=== PATIENT | female | born 1955 | race Caucasian/White ===

== ENCOUNTER 2017-12-26 16:14 | Inpatient (IN) | payer OTHER, MEDICAID, SELFPAY ==
[2017-12-26] VITALS (12 sets, daily range): BP systolic 102–155; BP diastolic 65–91; PULSE 96–117; RESP 17–34; TEMP 36.9–37.7; O2SAT 91–99; BMI 29.7; BMI 29.2
--- NOTE | 2017-12-26 16:15 | EKG12_ITS ---
Test Reason : Blood Pressure : / mmHG Vent. Rate : 118 BPM Atrial Rate : 118 BPM P-R Int : 126 ms QRS Dur : 118 ms QT Int : 418 ms P-R-T Axes : 079 047 082 degrees QTc Int : [address] & T wave abnormality, consider anterior ischemia Prolonged QT Abnormal ECG Possible old inferior post NV Confirmed by TAZ ROBLEDO ([id number]), editor in chief newspaper LILIANE QUINTERO ([id number]) on 12/30/2017 1:38:35 PM Referred By: ANGEL/TOBY Confirmed By:TAZ ROBLEDO
--- NOTE | 2017-12-26 16:43 | ED.VISSUMM ---
- ER Visit Summary Date of Service: 12/26/17 Chief Complaint: Nausea, vomiting and diarrhea History of Present Illness: The patient is a 62 F. day patient had nausea, vomiting diarrhea. Was feeling somewhat better yesterday and then just was her insulin for more than a month. Denies any severe headache. Family states that she has had trouble even walking around how she is so weak. States she has been urinating a lot but no dysuria hematuria. Subjectively she has had fever. Physical Examination: Older female no acute distress. Initial blood pressure 102/69. Pulse is 91% on room air no signs of hypoxia. H EENT exam dry mucous membranes. No facial droop. Normal speech. Neck nontender no lymphadenopathy. Lungs clear to auscultation bilaterally. Heart tachycardic rate about 110 no murmur. Abdomen soft, nontender, nondistended normal bowel sounds no peritoneal signs. She is moving all 4 extremities. Neurovascular intact. No motor weakness or loss of sensation. 5 out of 5 allergist strength. Dorsi plantar flexion intact. Back exam nontender. Skin no rash. Neurologically she is awake she is alert and questions she has no focal motor or sensory deficits. Normal speech. No facial droop. Test Results: CBC shows white count 12.7. H&H 12 and 34. No bands. Electrolytes show sodium 128. Potassium 3.4. CO2 of 18 anion gap of 15 blood sugar 511 BUN 24 creatinine 1.2. Troponin normal. Ketones serum are small. There are also ketones positive in the urine. Chest x-ray showed atelectasis in the bases. EKG shows sinus tachycardia 118. Unchanged from 1 from [address] depression in V2 through V6 was seen on the prior EKG. Emergency Department Course and Treatment: Patient will be treated with IV fluids. Subcu insulin Treatment Plan: Repeat exam patient doing better after IV fluids. I did do a blood gas which showed a pH 7.37 PCO2 is 60 and a PCO2 of 28. I think she is hyperglycemic and dehydrated but not currently in DKA. She will be treated with IV fluids and subcu insulin. I have the hospitalist on page for admission to the PCU. Due to her weakness she is unable to ambulate and she will need to stay. Disposition: Admission Impression: Acute nausea, vomiting and diarrhea. Hyperglycemia history of insulin-dependent diabetes Dehydration Generalized weakness and unable to ambulate This note was generated with [employer] dictation software. It may contain incorrect words, spelling, and punctuation that were not noted in review of the chart prior to signing ED Disposition - Plan for ED Patient: Chief Complaint: Diarrhea Referrals: Khoi Ramos MD [STAFF PHYSICIAN] -
--- NOTE | 2017-12-26 16:45 | RAD_ITS ---
STUDY: X-RAY CHEST REASON FOR EXAM: Female, 62 years old. Fever diarrhea TECHNIQUE: Single frontal view of the chest. COMPARISON: April 03, 2011 FINDINGS: Chronic appearing increased interstitial lung markings. There are multiple median sternotomy wires. There is no demonstrated pleural abnormality. There is bilateral basilar infiltrate / atelectasis. Enlarged heart size. Normal mediastinum and ventura. Normal visualized pulmonary arteries. There is atherosclerotic calcification of the aortic arch with tortuosity. There are diffuse degenerative changes of the visualized thoracic spine. There is degenerative osteoarthritis of the bilateral shoulders. There is no demonstrated abnormality of the visualized soft tissue structures of the upper abdomen. RAD/Chest 1 View (Portable) IMPRESSION: There is bilateral basilar infiltrate / atelectasis. Electronically Signed: Diaz Pérez MD at 17:07 EDT , Service support ,
--- NOTE | 2017-12-26 16:47 | ED.DCSUM_ITS ---
- ER Visit Summary Date of Service: 12/26/17 Chief Complaint: Nausea, vomiting and diarrhea History of Present Illness: The patient is a 62 F. day patient had nausea , vomiting diarrhea. Was feeling somewhat better yesterday and then just was her insulin for more than a month. Denies any severe headache. Family states that she has had trouble even walking around how she is so weak. States she has been urinating a lot but no dysuria hematuria. Subjectively she has had fever. Physical Examination: Older female no acute distress. Initial blood pressure 102/69. Pulse is 91% on room air no signs of hypoxia. H EENT exam dry mucous membranes. No facial droop. Normal speech. Neck nontender no lymphadenopathy. Lungs clear to auscultation bilaterally. Heart tachycardic rate about 110 no murmur. Abdomen soft, nontender, nondistended normal bowel sounds no peritoneal signs. She is moving all 4 extremities. Neurovascular intact. No motor weakness or loss of sensation. 5 out of 5 counter former strength. Dorsi plantar flexion intact. Back exam nontender. Skin no rash. Neurologically she is awake she is alert and questions she has no focal motor or sensory deficits. Normal speech. No facial droop. Test Results: CBC shows white count 12.7. H&H 12 and 34. No bands. Electrolytes show sodium 128. Potassium 3.4. CO2 of 18 anion gap of 15 blood sugar 511 BUN 24 creatinine 1.2. Troponin normal. Ketones serum are small. There are also ketones positive in the urine. Chest x-ray showed atelectasis in the bases. EKG shows sinus tachycardia 118. Unchanged from 1 from 2003 she did [address] depression in V2 through V6 was seen on the prior EKG. Emergency Department Course and Treatment: Patient will be treated with IV fluids. Subcu insulin Treatment Plan: Repeat exam patient doing better after IV fluids. I did do a blood gas which showed a pH 7.37 PCO2 is 60 and a PCO2 of 28. I think she is hyperglycemic and dehydrated but not currently in DKA. She will be treated with IV fluids and subcu insulin. I have the hospitalist on page for admission to the PCU. Due to her weakness she is unable to ambulate and she will need to stay. Disposition: Admission Impression: Acute nausea, vomiting and diarrhea. Hyperglycemia history of insulin-dependent diabetes Dehydration Generalized weakness and unable to ambulate This note was generated with [employer] dictation software. It may contain incorrect words, spelling, and punctuation that were not noted in review of the chart prior to signing ED Disposition - Plan for ED Patient: Chief Complaint: Diarrhea Referrals: Khoi Ramos MD [STAFF PHYSICIAN] -
[2017-12-26] MEDS: 0.9% Normal Saline 1,000 ML 1000 ML IV (17:00)
[2017-12-26 17:03] LABS: Basophil# 0.01 X10^3/uL; Basophil% 0.1 % (0-1); RBC Distribution Width CV 13.9 % (11.6-14.6)
[2017-12-26 17:10] LABS: Differential Indicated SCAN CRITERIA MET; Hematocrit 34.8 % (37-47); Hemoglobin 12.4 g/dl (12.0-15.0); Mean Corp Hgb Conc 35.6 g/gl (32-36); Mean Corpuscular Hgb 31.1 pg (27.0-32.0); Mean Corpuscular Volume 87.2 fL (81-99); Mean Platelet Vol. 11.7 fl (6.2-12.0); Neutrophil % 88.3 % (47-70); POSITIVE COUNT NO; POSITIVE DIFFERENTIAL YES; POSITIVE MORPHOLOGY NO; Platelet Count 131 K/mm3 (150-450); Red Blood Count 3.99 M/mm3 (4.2-5.4); White Blood Count 12.7 K/mm3 (4.4-11.0)
[2017-12-26 17:11] LABS: Absolute Neutrophil Count 11.2 X10^3/uL (2.0-7.7); Eosinophil# 0.01 X10^3/uL; Eosinophils% 0.1 % (0-5); Lymphocyte % 4.7 % (19-41); Monocyte# 0.85 X10^3/uL; Monocyte% 6.7 % (0-10); Neutrophil # 11.24 X10^3/uL (2.7-7.7)
--- NOTE | 2017-12-26 17:16 | ED.RN ---
LAB RESULTED GLUCOSE 511, PHYSICIAN NOTIFIED
[2017-12-26 17:17] LABS: Anion Gap 15 (5-15); BUN 24 mg/dL (7-18); BUN/Creat Ratio 19.5 RATIO (10-20); Chloride 95 mmol/L (98-107); Creatinine, Serum 1.23 mg/dL (0.55-1.02); EST Glomerular Filtration Rate 47 mL/min (>60); Est Glom Filt Rate - Afr Amer 57 mL/min (>60); Estimated Creatinine Clearance 47.23 ml/min; Glucose 511 mg/dL (74-106); Potassium 3.4 mmol/L (3.5-5.1); Sodium Level 128 mmol/L (136-145)
[2017-12-26 17:24] LABS: Platelet Estimate SLT DEC (ADEQ); Red Cell Morphology NORM C+C NORMAL (NORM C&C)
[2017-12-26 18:13] LABS: Mucous, Urine 0 SEEN /hpf (<or=2+)
[2017-12-26 18:15] LABS: Color, Urine Yellow (Yellow); Glucose, Dipstick 1000 mg/dl (Normal); Ketone-Dipstick 50 mg/dl (Negative); Leukocyte Esterase-Dipstick Negative /ul (Negative); Nitrite-Dipstick Negative (Negative); Occult Blood-Urine 250 /ul (Negative); Protein-Dipstick 100 mg/dl (Negative); Urine Bilirubin Dipstick Negative (Negative); Urine Clarity Cloudy (Clear); Urine Urobilinogen Normal (Normal)
[2017-12-26 18:27] LABS: Amorphous Sediment 1+; Bacteria 2+ /hpf (None Seen); Red Blood Cells-Urine 0-5 SEEN /hpf (0-5); Squamous Epithelial Cells - UA 0-5 SEEN /hpf (5-10); White Blood Cells 5-10 SEEN /hpf (0-5)
[2017-12-26] MEDS: 0.9% Normal Saline 1,000 ML 999 ML IV (18:50)
[2017-12-26 19:15] LABS: Allen Test POS; Base Excess -9 mmol/L (-2 to +2); Bicarbonate 16.3 mmol/L (22-26); Blood Gas Specimen Type ART; O2 Delivery Device Room Air; PO2 60 mmHG (75-100); SITE L Radial; SO2 90 % (95-99); Time Given 1850; Total Carbon Dioxide 17 mmol/L; pCO2 28.3 mmHg (35-45); pH 7.37 (7.35-7.45)
[2017-12-26] MEDS: Famotidine 20 MG Tablet 40 MG PO (20:15)
[2017-12-26 20:26] LABS: Bedside Glucose 415 mg/dL (70-110)
--- NOTE | 2017-12-26 20:34 | PCM.HP.STD ---
Problem List (1) DKA (diabetic ketoacidoses) Status: Acute (2) HTN (hypertension) Status: Chronic (3) HLD (hyperlipidemia) Status: Chronic (4) Atrial flutter Status: Chronic (5) Atherosclerotic heart disease of [place] coronary artery without angina pectoris Status: Chronic Comment: PTCA and BMS to the [facility] 04/06/2011; [facility] 04/03/2011 (6) Ventricular septal defect Status: Chronic (7) Paroxysmal atrial fibrillation Status: Chronic (8) Hypertension Status: Chronic (9) Hyperlipidemia Status: Chronic (10) Coronary artery disease Status: Chronic Comment: Status post stent (11) History of ischemic multifocal multiple vascular territories stroke Status: Chronic Comment: With no residual deficit History of Present Illness Date of Admission: 12/26/17 Chief Complaint: DKA The patient is a 62 year old female w / h/o PAF, HTN, DMII, and lipidemia admitted for DKA. She has not been taking her insulin because she is not able to afford the meds. She has been feeling ill since Friday. She has progressive nausea for the past few days. Her nausea is constant and she is unable to tolerate PO since yesterday. On Friday, she just drank a copious amount of soda but she was still thirsty. She has progressive weakness as well. She has diarrhea. Diarrhea is nonbloody. She also complained of lower abdominal pain. Pain is dull aching and intermittent. Pain started a day ago. No radiation of pain. Past Medical History Past Medical History (Chronic Problems): Chronic Problems (Last Reviewed 06/11/17 @ 11:16 by Yee Quezada) H/O percutaneous transluminal coronary angioplasty (Chronic) PTCA and BMS to the X 04/06/2011 HTN (hypertension) (Chronic) HLD (hyperlipidemia) (Chronic) Atrial flutter (Chronic) Atherosclerotic heart disease of [place] coronary artery without angina pectoris (Chronic) PTCA and BMS to the [facility] 04/06/2011; [facility] 04/03/2011 Ventricular septal defect (Chronic) Paroxysmal atrial fibrillation (Chronic) Hypertension (Chronic) Hyperlipidemia (Chronic) Coronary artery disease (Chronic) Status post stent History of ischemic multifocal multiple vascular territories stroke (Chronic) With no residual deficit Status post abdominal surgery, follow-up exam (Chronic) Hypokalemia (Chronic) Medical History: Medical History (Last Reviewed 06/11/17 @ 11:16 by Yee Quezada) HTN (hypertension) (Chronic) I10 HLD (hyperlipidemia) (Chronic) E78.5 Atrial flutter (Chronic) I48.92 Atherosclerotic heart disease of [place] coronary artery without angina pectoris (Chronic) I25.10 PTCA and BMS to the [facility] 04/06/2011; [facility] 04/03/2011 Ventricular septal defect (Chronic) Q21.0 Paroxysmal atrial fibrillation (Chronic) I48.0 History of echocardiogram Z92.89 EF 53% 10/04/2011 Allergies No Known Allergies Allergy (Verified 12/26/17 16:15) Home Medications: Ambulatory Orders Medication Instructions Recorded Calcium/Mag/Zinc 1 tab PO DAILY 08/13/13 Cyanocobalamin [Vitamin B12] 250 mcg PO DAILY 08/13/13 Echinacea 380 mg PO DAILY PRN 08/13/13 Glucosamine Sulfate Dipot Chlr 500 mg PO DAILY 08/13/13 [Glucosamine Relief] Multivitamins,Therapeutic 1 tablet PO DAILY 08/13/13 [Multivitamin] Elmer-3/Dha/Epa/Fish Oil [Fish Oil 500 mg PO BID 08/13/13 Dr 500 mg Softgel] Potassium Gluconate 550 mg PO PRN PRN 08/13/13 glipiZIDE XL [Glucotrol Xl] 2 tab PO BID 08/13/13 traZODone [Desyrel] 100 mg PO QHS 08/13/13 lorazepam 0.5 mg tablet 0.5 mg PO TID PRN PRN tab 06/11/17 apixaban 5 mg tablet 5 mg PO BID #180 tab 12/15/17 Aspirin [Aspirin EC] 81 mg PO DAILY 12/26/17 Cyclobenzaprine [Flexeril] 10 mg PO TID 12/26/17 Gabapentin [Neurontin] 100 mg PO TID 12/26/17 Ibuprofen [Ibu] 800 mg PO TIDCM PRN 12/26/17 Metoprolol Tartrate [Lopressor 50 mg PO BID 12/26/17 (beta wally)] Sertraline HCl [Zoloft] 200 mg PO BID 12/26/17 Sitagliptin Phosphate [Januvia] 100 mg PO DAILY 12/26/17 Surgical History: Surgical History (Last Updated 06/11/17 @ 11:16 by Yee Quezada) H/O percutaneous transluminal coronary angioplasty (Chronic) Z98.61 PTCA and BMS to the [facility] 04/06/2011 History of cholecystectomy Z98.890, Z90.49 History of hysterectomy Z98.890, Z90.710 History of left heart catheterization (LHC) Z98.890 1994; 04/03/2011 Surgical History: cholecystectomy, - - History of cardiac surgery for congenital heart disease. Psychiatric History: No pertinent psych hx COMMISSION CLERK History: No pertinent COMMISSION CLERK history Smoking Status: Current every day smoker Drugs: None - *Family History Maternal Family History: Family History (Last Updated 06/11/17 @ 11:10 by Yee Quezada) Mother Ovarian cancer Father Hypertension COPD (chronic obstructive pulmonary disease) Sister Multiple sclerosis Sister Brain tumor Brother A-fib History Items: No pertinent history Review of Systems Constitutional: Denies: Chills, Fever, Weight Change HEENT: Denies: Head Aches, Sinus Congestion, Sinus Drainage Cardiovascular: Denies: Chest Pain, Palpitations Respiratory: Denies: Cough, Shortness of breath at rest, Sputum production Gastrointestinal: Reports: Abdominal Pain, Nausea, Vomiting Genitourinary: Denies: Dysuria Musculoskeletal: Denies: Joint Pain, Joint Tenderness Skin: Denies: Rash, Wounds Neurological: Denies: Numbness, Tingling, Focal weakness Psychiatric: Denies: Anxiety, Depression, Homicidal Ideations, Suicidal Ideations Hematologic/ Lymphatic: Denies: Easy Bruising, Easy Bleeding VTE Information - Inpt Only VTE Present on Admission: No VTE Mechan Device Prophylaxis: SCD's VTE Pharm Prophylaxis ordered?: Yes Patient Problems: Active and Suspected Problems (Last Reviewed 06/11/17 @ 11:16 by Yee Quezada) DKA (diabetic ketoacidoses) (Acute) - Physical Exam General: Alert, Oriented x3, Cooperative HEENT: Atraumatic, PERRLA, EOMI, Normocephalic Neck: Supple, No JVD, Negative Carotid Bruits Lungs: Clear to auscultation, Normal air movement Cardiovascular: Regular rate, No murmurs Abdomen: Bowel Sounds Present, Soft, Non Tender Extremities: No edema, Capillary Refill Less than 3 Seconds Skin: No rashes, No breakdown Musculoskeletal: No Tenderness to Palpation of Joints or Extremities Neurological: Cranial nerves II-XII grossly intact Psych/Mental Status: Normal Affect, Appropriate Vital Signs Temp Pulse Resp BP Pulse Ox 100 F H 103 H 22 H 133/75 H 94 12/26/17 16:15 12/26/17 20:00 12/26/17 20:00 12/26/17 20:00 12/26/17 20:00 POC Glucose 12/26/17 20:19 POC Glucose 415 H Assessment/Plan All Active Problems (Last Reviewed 06/11/17 @ 11:16 by Yee Quezada) DKA (diabetic ketoacidoses) (Acute) 62 year old female w / h/o PAF, HTN, DMII, and lipidemia admitted for DKA. 1) DKA: Gap 15, positive ketone, and hyperglycemia. DKA protocol started. Insulin and aggressive hydration. Gap closed. Started levemir 20 units Qday. 2) Hypovolemia hyponatremia: Na 128 Hydration. Monitor. 3) Chronic issues: PAF, HTN, DMII, and lipidemia Resume home meds.
[2017-12-26 22:45] LABS: Bedside Glucose 321 mg/dL (70-110)
[2017-12-26] MEDS: APIXABAN 5 MG TABLET PO (23:05)
[2017-12-26] MEDS: Metoprolol Tartrate 50 MG Tablet PO (23:05)
[2017-12-26] MEDS: traZODone 100 MG Tablet PO (23:05)
[2017-12-26] MEDS: Sertraline 100 MG Tablet 200 MG PO (23:06)
[2017-12-26] MEDS: 0.9% Normal Saline 1,000 ML 325 ML IV (23:07)
[2017-12-26 23:21] LABS: AST(SGOT) 33 U/L (15-37); Alanine Aminotransfer ALT/SGPT 38 U/L (13-56); Albumin, Serum 2.3 g/dL (3.2-5.0); Alkaline Phosphatase 78 U/L (45-117); Anion Gap 12 (5-15); BUN 21 mg/dL (7-18); BUN/Creat Ratio 21.5 RATIO (10-20); Bilirubin, Direct 0.12 mg/dL (0.00-0.30); Calcium,Total 8.4 mg/dL (8.5-10.1); Chloride 99 mmol/L (98-107); Creatinine, Serum 0.98 mg/dL (0.55-1.02); EST Glomerular Filtration Rate 61 mL/min (>60); Est Glom Filt Rate - Afr Amer 74 mL/min (>60); Estimated Creatinine Clearance 59.27 ml/min; Globulin 4.7 g/dL (2.2-4.2); Glucose 312 mg/dL (74-106); Magnesium 1.7 mg/dL (1.6-2.6); Sodium Level 132 mmol/L (136-145)
[2017-12-26 23:30] LABS: Osmolality, Serum 292 mOsm/KG (280-301)
[2017-12-27] VITALS (17 sets, daily range): BP systolic 116–145; BP diastolic 56–75; PULSE 84–99; RESP 16–37; TEMP 37–37.4; O2SAT 92–100
[2017-12-27 00:01] LABS: Hemoglobin A1c 12.5 % (4.2-6.3)
[2017-12-27 00:27] LABS: M R Staph aureus DNA By PCR Negative (Negative); Probe Check PASS; Specimen Processing Control PASS
[2017-12-27] MEDS: Insulin Lispro 100 UNIT/ML INSULN.PEN SC ×7 (01:29→21:06)
[2017-12-27] MEDS: 0.9% NaCl Peripheral Flush Adult/Peds IV (01:30)
[2017-12-27 01:36] LABS: Bedside Glucose 306 mg/dL (70-110)
[2017-12-27] MEDS: 0.9% Normal Saline 1,000 ML 150 ML IV ×2 (05:08→19:26)
[2017-12-27 05:16] LABS: Bedside Glucose 287 mg/dL (70-110)
[2017-12-27 06:04] LABS: Anion Gap 12 (5-15); BUN 15 mg/dL (7-18); BUN/Creat Ratio 38.1 RATIO (10-20); Calcium,Total 5.1 mg/dL (8.5-10.1); Chloride 120 mmol/L (98-107); Creatinine, Serum 0.39 mg/dL (0.55-1.02); EST Glomerular Filtration Rate 174 mL/min (>60); Est Glom Filt Rate - Afr Amer 211 mL/min (>60); Estimated Creatinine Clearance 148.94 ml/min; Glucose 184 mg/dL (74-106); Potassium 2.2 mmol/L (3.5-5.1); Sodium Level 145 mmol/L (136-145)
[2017-12-27 06:41] LABS: Magnesium 1.1 mg/dL (1.6-2.6)
[2017-12-27 08:21] LABS: Bedside Glucose 229 mg/dL (70-110)
[2017-12-27] MEDS: APIXABAN 5 MG TABLET PO ×2 (09:38→21:08)
[2017-12-27] MEDS: Sertraline 100 MG Tablet 200 MG PO ×2 (09:38→21:08)
[2017-12-27] MEDS: Metoprolol Tartrate 50 MG Tablet PO ×2 (09:38→21:08)
[2017-12-27] MEDS: Aspirin E.C. 81 MG Tablet PO (09:39)
--- NOTE | 2017-12-27 11:46 | CASEMGMT ---
See [facility]LL[facility] Assessment Link. DC PLAN: undetermined - pt is confused, weak. Daughter is concerned she may not be able to return home safely. ANA COSTELLO discussed options on dc of Home Health or SNF. Also recommended if pt returns home, would benefit from having someone with her for safety in the beginning. -PT/OT ordered, will await evaluations. Simi HERNANDEZ RN ACM
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
--- NOTE | 2017-12-27 12:15 | PN_ITS ---
Patient Problems: Active and Suspected Problems (Last Reviewed 06/11/17 @ 11:16 by Yee Qeuzada) DKA (diabetic ketoacidoses) (Acute) Subjective: Patient is a 62-year-old female with a history of diabetes mellitus, hypertension, paroxysmal A. fib, hyperlipidemia. She was admitted with a complaint of progressive nausea and feeling unwell for 3 days prior to admission. She had also decreased intake and progressive weakness with associated diarrhea and no abdominal pain. She was admitted and found to have DKA with elevated anion gap, elevated blood sugars and positive ketones. She was started on insulin drip. Patient seen and examined. She was quite confused and said she has problems with her memory from when she had an accident. She complained of low abdominal pain and some subjective fevers but denied any chills, any cough or chest pain, any diarrhea vomiting. She admitted to having frequency of urination prior to admission but denied any polydipsia. Vitals/I&O's: Vital Signs Temp Pulse Resp BP Pulse Ox 98.8 F 84 19 H 141/63 H 96 12/27/17 07:38 12/27/17 11:27 12/27/17 07:38 12/27/17 09:38 12/27/17 07:38 Oxygen Flow Rate (L/min) 2 Oxygen Delivery Method Nasal Cannula Weight: 192 lb 0.362 oz Body Mass Index (BMI) 29.2 Intake and Output for Last 24 Hours 12/25/17 12/26/17 12/27/17 23:59 23:59 23:59 Intake Total 2412 / 2412 2528 / 2528 Output Total 250 / 250 500 / 500 Balance 2162 / 2162 2027 General: Alert, Cooperative, No apparent distress, - - Patient confused alert and oriented ?2. HEENT: Atraumatic, PERRLA, EOMI, Normocephalic Oral: Moist Mucosa Neck: Supple, No JVD, Negative Carotid Bruits Lungs: Clear to auscultation, Normal air movement Cardiovascular: Regular rate, Regular Rhythm, Normal S1, Normal S2, No murmurs Abdomen: Bowel Sounds Present, Soft, Non Tender, Non-Distended, No Hepato- splenomegaly, - - minimal suprapubic tenderness Extremities: No clubbing, No cyanosis, No edema, Capillary Refill Less than 3 Seconds Skin: No rashes, No breakdown Musculoskeletal: No Tenderness to Palpation of Joints or Extremities Lymphatic: No Cervical, Supraclavicular, or Inguinal Adenopathy Neurological: Cranial nerves II-XII grossly intact Psych/Mental Status: Normal Affect, Appropriate, Alert and oriented to time, place, person, mood and affect Laboratory Results 12/26/17 20:19: POC Glucose 415 H 12/26/17 22:34: POC Glucose 321 H 12/26/17 22:40: Sodium 132 L, Potassium 3.0 L, Chloride 99, Carbon Dioxide 21.0 , Anion Gap 12, BUN 21 H, Creatinine 0.98, Estim Creat Clear Calc 59.27, Est GFR (MDRD) Af Amer 74, Est GFR (MDRD) Non-Af 61, BUN/Creatinine Ratio 21.5 H, Glucose 312 H, Calcium 8.4 L, Magnesium 1.7, Total Bilirubin 0.50, Direct Bilirubin 0.12, AST 33, ALT 38, Alkaline Phosphatase 78, Troponin I 0.032, Total Protein 7.0, Albumin 2.3 L, Globulin 4.7 H 12/26/17 22:40: Serum Osmolality 292 12/26/17 22:40: MRSA (PCR) Negative 12/27/17 01:21: POC Glucose 306 H 12/27/17 01:25: Troponin I 0.039 12/27/17 05:02: POC Glucose 287 H 12/27/17 05:05: Troponin I 0.039 12/27/17 05:05: Sodium 145, Potassium 2.2 L*, Chloride 120 H, Carbon Dioxide 13.0 L, Anion Gap 12, BUN 15, Creatinine 0.39 L, Estim Creat Clear Calc 148.94, Est GFR (MDRD) Af Amer 211, Est GFR (MDRD) Non-Af 174, BUN/Creatinine Ratio 38.1 H, Glucose 184 H, Calcium 5.1 L* 12/27/17 05:05: Magnesium 1.1 L 12/27/17 08:13: POC Glucose 229 H Current Medications Apixaban (Eliquis) 5 mg PO BID [facility] Last Admin: 12/27/17 09:38 Dose: 5 mg Aspirin (Ecotrin) 81 mg PO DAILY [facility] Last Admin: 12/27/17 09:39 Dose: 81 mg Cyclobenzaprine HCl (Flexeril) 10 mg PO TID [facility] Last Admin: 12/27/17 05:09 Dose: 10 mg Dextrose (D50w Syringe) 0 gm IV X1 PRN; Protocol PRN Reason: AGITATION Sodium Chloride () 1,000 mls @ 150 mls/hr IV .Q6H40M [facility] Last Admin: 12/27/17 05:08 Dose: 150 mls/hr Potassium Chloride (Kcl 10meq/100ml) 10 meq in 100 mls @ 100 mls/hr IV BOLUS Q1H [facility] Stop: 12/27/17 12:14 Last Admin: 12/27/17 11:48 Dose: 100 mls/hr Insulin Glargine (Lantus (Bkc)) 20 units SC QHS [facility] Last Admin: 12/27/17 00:15 Dose: 20 u Insulin Human Lispro (Humalog Kwikpen (Bkc)) 0 unit SC Q4 LATHA PRN Reason: Protocol Last Admin: 12/27/17 09:39 Dose: 2 u Metoprolol Tartrate (Lopressor (Beta Guzman)) 50 mg PO BID [facility] Last Admin: 12/27/17 09:38 Dose: 50 mg Sertraline HCl (Zoloft) 200 mg PO BID [facility] Last Admin: 12/27/17 09:38 Dose: 200 mg Sodium Chloride () 5 - 30 ml IV UD PRN PRN Reason: SALINE FLUSH Last Admin: 12/27/17 01:30 Dose: 20 ml Trazodone HCl (Desyrel) 100 mg PO QHS [facility] Last Admin: 12/26/17 23:05 Dose: 100 mg Medical Necessity - Tobacco Use Smoking Status: Current every day smoker Assessment/Plan All Active Problems (Last Reviewed 06/11/17 @ 11:16 by Yee Quezada) DKA (diabetic ketoacidoses) (Acute) 1. DKA due to noncompliance * admitted with a complaint of general feeling of unwellness, nausea and vomiting as well as subjective fever. * serum ketones was mildly elevated on admission, with elevated anion gap(~19) and hyperglycemia. Anion gap closed initially with IVF. * initial ABG showed pH of 7.37, with bicarb of 16. and pO 2 of 60 * bicarb this morning down to 13; anion gap is now ~ 17 * K was initially 3.4, then went down to 3; now 2.2. K being replaced; will recheck and monitor * will get stat ABG. * was never put on insulin drip; blood sugars came down to 200s on IVF only * will check blood sugars q4 for now till tomorrow, then transition to [facility]. * will start PO metformin 500mg bid. Patient doesnt know what she takes at home and has not been compliant. * will give Insulin SQ 20IU now, and continue 20IU qam and monitor sugars * 2. Hypomagnesemia and hypocalcemia * Mg is 1.1; will replace and monitor * Ca is 5.1; corrected for albumin is ~ 6.5. WIll replace and monitor * 3. Altered mental status, possibly due to DKA and UTI and medicaiton induced also * will hold trazodone and flexeril. Will start IV ciprofloxacin for UTI * fall precautions * 4. UTI * Complaints of frequency of urine. Does not complain of dysuria or polydipsia. Denies offensive urine. * A showed 2+ bacteria and 5-10 white cells. No leukocyte esterase seen. * We will start IV ciprofloxacin and send urine for culture and adjust antibiotics as needed * 5. Hyponatremia: resolved. 6. Paroxysmal Afib: * currently rate controlled. On eliquis 5mg bid. At risk of further arrhythmia due to electrolyte imbalance. Will replace electrolytes and monitor * Dose of Eliquis is for treatment for thrombotic condition. Will clarify with patient if she has had a history of a thrombotic condition prophylaxis for paroxysmal A. fib and consider reducing the dose to 2.5 mg twice daily. 7. Hyperlipidemia: on statin 8. Hypertension: On metoprolol DVT prophylaxis: on eliquis Code Visit Inpatient E&M: 60090 Subs Hosp L3
[2017-12-27 12:35] LABS: Bedside Glucose 308 mg/dL (70-110)
[2017-12-27] MEDS: Ciprofloxacin 400 MG/200 ML BAG 200 MG IV ×2 (12:57→21:06)
[2017-12-27 13:00] LABS: Allen Test POS; Base Excess -10 mmol/L (-2 to +2); Bicarbonate 15.6 mmol/L (22-26); Blood Gas Specimen Type ART; O2 Delivery Device Nasal Can; PO2 96 mmHG (75-100); SITE R Radial; SO2 97 % (95-99); Time Given 1253; Total Carbon Dioxide 16 mmol/L; pCO2 27.8 mmHg (35-45); pH 7.36 (7.35-7.45)
[2017-12-27 13:15] LABS: Anion Gap 12 (5-15); BUN 21 mg/dL (7-18); BUN/Creat Ratio 24.9 RATIO (10-20); Calcium,Total 8.5 mg/dL (8.5-10.1); Chloride 105 mmol/L (98-107); Creatinine, Serum 0.84 mg/dL (0.55-1.02); EST Glomerular Filtration Rate 72 mL/min (>60); Est Glom Filt Rate - Afr Amer 87 mL/min (>60); Estimated Creatinine Clearance 69.15 ml/min; Glucose 288 mg/dL (74-106); Magnesium 1.7 mg/dL (1.6-2.6); Phosphorus 1.1 mg/dL (2.5-4.9); Sodium Level 135 mmol/L (136-145)
[2017-12-27 16:11] LABS: Bedside Glucose 242 mg/dL (70-110)
--- NOTE | 2017-12-27 16:20 | CT_ITS ---
STUDY: CT BRAIN WITHOUT CONTRAST REASON FOR EXAM: Female, 62 years old. Confusion, history of previous stroke RADIATION DOSAGE (If Supplied By Facility): CTDIvol = ( 44.99 ) mGy, DLP = ( 779.24 ) mGycm TECHNIQUE: Transaxial CT imaging of the brain was performed without administration of intravenous contrast material. Individualized dose optimization techniques were used for this CT. COMPARISON: None. FINDINGS: There are several subcutaneous nodular densities of the occipital region measuring up to 1.7 cm which may represent sebaceous cysts. Normal calvarium. There is a region of encephalomalacia of the left occipital lobe consistent with old infarct. Normal white matter tracts of the cerebral hemispheres. Normal basal ganglia and thalami. Normal brainstem. There is also a region of hypodensity of the lateral left cerebellar hemisphere, also consistent with old infarct. There is no intracranial hemorrhage. There are no findings of an acute ischemic infarction. Normal visualized paranasal sinuses. CT/Brain/Head without Contrast IMPRESSION: Old infarcts of the left occipital lobe and left cerebellar hemisphere. There is no evidence of acute infarct or intracranial hemorrhage. Electronically Signed: Oscar Louis MD at 17:40 EDT , Service support ,
[2017-12-27 18:20] LABS: Thyroid Stim Hormone (TSH) 0.97 uIU/mL (0.358-3.74)
[2017-12-27] MEDS: Na Biphos/Potassium Phosphate PACKET 1 PACKET PO ×2 (18:32→21:09)
[2017-12-27 18:45] LABS: Bedside Glucose 269 mg/dL (70-110)
[2017-12-27 22:05] LABS: Bedside Glucose 230 mg/dL (70-110)
[2017-12-28] VITALS (15 sets, daily range): BP systolic 104–130; BP diastolic 47–75; PULSE 74–125; RESP 15–18; TEMP 36.4–37.2; O2SAT 91–93
[2017-12-28] MEDS: 0.9% Normal Saline 1,000 ML 150 ML IV ×2 (01:48→08:54)
[2017-12-28] MEDS: Insulin Lispro 100 UNIT/ML INSULN.PEN SC ×6 (01:53→22:04)
[2017-12-28 02:01] LABS: Bedside Glucose 209 mg/dL (70-110)
[2017-12-28 06:04] LABS: Absolute Lymphocyte Count 0.89 X10^3/ul (0.83-4.51); Absolute Neutrophil Count 9.1 X10^3/uL (2.0-7.7); Basophil# 0.01 X10^3/uL; Basophil% 0.1 % (0-1); Eosinophil# 0.02 X10^3/uL; Eosinophils% 0.2 % (0-5); Hematocrit 29.9 % (37-47); Hemoglobin 10.5 g/dl (12.0-15.0); Lymphocyte # 0.89 X10^3/ul (4.0); Lymphocyte % 7.9 % (19-41); Mean Corp Hgb Conc 35.1 g/gl (32-36); Mean Corpuscular Hgb 30.8 pg (27.0-32.0); Mean Corpuscular Volume 87.7 fL (81-99); Monocyte# 1.09 X10^3/uL; Monocyte% 9.7 % (0-10); Platelet Count 146 K/mm3 (150-450); RBC Distribution Width CV 13.8 % (11.6-14.6); RBC Distribution Width SD 42.6 fl (35.1-43.9); Red Blood Count 3.41 M/mm3 (4.2-5.4); White Blood Count 11.2 K/mm3 (4.4-11.0)
[2017-12-28 06:05] LABS: POSITIVE COUNT NO; POSITIVE DIFFERENTIAL NO; POSITIVE MORPHOLOGY NO
[2017-12-28 06:20] LABS: Bedside Glucose 194 mg/dL (70-110)
[2017-12-28 07:27] LABS: ALB/GLOB Ratio 0.5 RATIO (0.9-2.4); AST(SGOT) 122 U/L (15-37); Alanine Aminotransfer ALT/SGPT 95 U/L (13-56); Albumin, Serum 1.9 g/dL (3.2-5.0); Alkaline Phosphatase 92 U/L (45-117); Anion Gap 11 (5-15); BUN 17 mg/dL (7-18); Calcium,Total 7.9 mg/dL (8.5-10.1); Chloride 106 mmol/L (98-107); Creatinine, Serum 0.74 mg/dL (0.55-1.02); EST Glomerular Filtration Rate 84 mL/min (>60); Est Glom Filt Rate - Afr Amer 102 mL/min (>60); Globulin 4.2 g/dL (2.2-4.2); Glucose 196 mg/dL (74-106); Protein, Total 6.1 g/dL (6.4-8.2); Sodium Level 137 mmol/L (136-145)
[2017-12-28] MEDS: Na Biphos/Potassium Phosphate PACKET 1 PACKET PO ×4 (08:55→21:55)
[2017-12-28 09:14] LABS: Phosphorus 1.6 mg/dL (2.5-4.9)
[2017-12-28] MEDS: Ciprofloxacin 400 MG/200 ML BAG 200 MG IV ×2 (10:21→21:55)
[2017-12-28] MEDS: Aspirin E.C. 81 MG Tablet PO (10:27)
[2017-12-28] MEDS: Sertraline 100 MG Tablet 200 MG PO ×2 (10:27→21:55)
[2017-12-28] MEDS: APIXABAN 5 MG TABLET PO ×2 (10:28→21:55)
[2017-12-28] MEDS: Metoprolol Tartrate 50 MG Tablet PO ×2 (10:28→21:55)
[2017-12-28 10:51] LABS: Bedside Glucose 237 mg/dL (70-110)
--- NOTE | 2017-12-28 11:53 | PCM.DC ---
- Discharge Diagnoses Current Active Problems: Current Active and Chronic Problems (Last Reviewed 06/11/17 @ 11:16 by Yee Quezada) DKA (diabetic ketoacidoses) (Acute) You will use the following diet at home:: Calorie/Carbohydrate Controlled (specify 1200, 1400, etc) Your food should be the consistency of: Regular Discharge Activity: Return to Normal Activity Call your doctor if you observe: Fever of 101 or Higher, Shortness of breath, Chest pain Instructions: Healthy Meals for Diabetes, Using Injected Insulin, What Is Type 2 Diabetes? Additional Instructions: please dont take the Flexeril and any opiates as they cause confusion. Please follow up with your primary care doctor about when/if to resume them Allergies/Adverse Reactions: Allergies No Known Allergies Allergy (Verified 12/26/17 16:15) Medications to take at Discharge Calcium/Mag/Zinc 1 tab PO DAILY 08/13/13 Cyanocobalamin [Vitamin B12] 250 mcg PO DAILY 08/13/13 Echinacea 380 mg PO DAILY PRN 08/13/13 Glucosamine Sulfate Dipot Chlr [Glucosamine Relief] 500 mg PO DAILY 08/13/13 Multivitamins,Therapeutic [Multivitamin] 1 tablet PO DAILY 08/13/13 [place]-3/Dha/Epa/Fish Oil [Fish Oil Dr 500 mg Softgel] 500 mg PO BID 08/13/13 traZODone [Desyrel] 100 mg PO QHS 08/13/13 lorazepam 0.5 mg tablet 0.5 mg PO TID PRN PRN tab 06/11/17 apixaban 5 mg tablet 5 mg PO BID #180 tab 12/15/17 Aspirin [Aspirin EC] 81 mg PO DAILY 12/26/17 Ibuprofen [Ibu] 800 mg PO TIDCM PRN 12/26/17 Metoprolol Tartrate [Lopressor (beta wally)] 50 mg PO BID 12/26/17 Sertraline HCl [Zoloft] 200 mg PO BID 12/26/17 Ciprofloxacin/Ciprofloxa HCl [Ciprofloxacin ER 500 mg Tablet] 500 mg PO BID #10 tab 12/28/17 Insulin Glargine [Lantus SoloStar Pen] 15 units SC BREAKFAST #30 pen 12/28/17 Metformin HCl [Glucophage] 500 mg PO BIDCM #60 tab 12/28/17 Na Biphos/Potassium Phosphate [Neutra-Phos Packet] 1 packet PO 4X/DAYCM #60 packet 12/28/17 Potassium Chloride 20 meq PO DAILY #30 packet 12/28/17 The following prescriptions were given: Insulin Glargine [Lantus SoloStar Pen] 15 units SC BREAKFAST #30 pen Potassium Chloride 20 meq PO DAILY #30 packet Ciprofloxacin/Ciprofloxa HCl [Ciprofloxacin ER 500 mg Tablet] 500 mg PO BID #10 tab Metformin HCl [Glucophage] 500 mg PO BIDCM #60 tab Na Biphos/Potassium Phosphate [Neutra-Phos Packet] 1 packet PO 4X/DAYCM #60 packet Primary Care Physician: Khoi Ramos MD [STAFF PHYSICIAN] - Please follow up with your Primary Care Physician in: one week Test Results: Test results from this visit will be discussed in further detail at your follow-up appointment, if applicable. Proposed Discharge Date: 12/28/17
--- NOTE | 2017-12-28 11:56 | DCINST_ITS ---
- Discharge Diagnoses Current Active Problems: Current Active and Chronic Problems (Last Reviewed 06/11/17 @ 11:16 by Yee Quezada) DKA (diabetic ketoacidoses) (Acute) You will use the following diet at home:: Calorie/Carbohydrate Controlled ( specify 1200, 1400, etc) Your food should be the consistency of: Regular Discharge Activity: Return to Normal Activity Call your doctor if you observe: Fever of 101 or Higher, Shortness of breath, Chest pain Instructions: Healthy Meals for Diabetes, Using Injected Insulin, What Is Type 2 Diabetes? Additional Instructions: please dont take the Flexeril and any opiates as they cause confusion. Please follow up with your primary care doctor about when/if to resume them Allergies/Adverse Reactions: Allergies No Known Allergies Allergy (Verified 12/26/17 16:15) Medications to take at Discharge Calcium/Mag/Zinc 1 tab PO DAILY 08/13/13 Cyanocobalamin [Vitamin B12] 250 mcg PO DAILY 08/13/13 Echinacea 380 mg PO DAILY PRN 08/13/13 Glucosamine Sulfate Dipot Chlr [Glucosamine Relief] 500 mg PO DAILY 08/13/13 Multivitamins,Therapeutic [Multivitamin] 1 tablet PO DAILY 08/13/13 [place]-3/Dha/Epa/Fish Oil [Fish Oil Dr 500 mg Softgel] 500 mg PO BID 08/13/13 traZODone [Desyrel] 100 mg PO QHS 08/13/13 lorazepam 0.5 mg tablet 0.5 mg PO TID PRN PRN tab 06/11/17 apixaban 5 mg tablet 5 mg PO BID #180 tab 12/15/17 Aspirin [Aspirin EC] 81 mg PO DAILY 12/26/17 Ibuprofen [Ibu] 800 mg PO TIDCM PRN 12/26/17 Metoprolol Tartrate [Lopressor (beta wally)] 50 mg PO BID 12/26/17 Sertraline HCl [Zoloft] 200 mg PO BID 12/26/17 Ciprofloxacin/Ciprofloxa HCl [Ciprofloxacin ER 500 mg Tablet] 500 mg PO BID #10 tab 12/28/17 Insulin Glargine [Lantus SoloStar Pen] 15 units SC BREAKFAST #30 pen 12/28/17 Metformin HCl [Glucophage] 500 mg PO BIDCM #60 tab 12/28/17 Na Biphos/Potassium Phosphate [Neutra-Phos Packet] 1 packet PO 4X/DAYCM #60 packet 12/28/17 Potassium Chloride 20 meq PO DAILY #30 packet 12/28/17 The following prescriptions were given: Insulin Glargine [Lantus SoloStar Pen] 15 units SC BREAKFAST #30 pen Potassium Chloride 20 meq PO DAILY #30 packet Ciprofloxacin/Ciprofloxa HCl [Ciprofloxacin ER 500 mg Tablet] 500 mg PO BID #10 tab Metformin HCl [Glucophage] 500 mg PO BIDCM #60 tab Na Biphos/Potassium Phosphate [Neutra-Phos Packet] 1 packet PO 4X/DAYCM #60 packet Primary Care Physician: Khoi Ramos MD [STAFF PHYSICIAN] - Please follow up with your Primary Care Physician in: one week Test Results: Test results from this visit will be discussed in further detail at your follow- up appointment, if applicable. Proposed Discharge Date: 12/28/17
--- NOTE | 2017-12-28 11:56 | PCM.DC.SUM ---
Discharge Date and Diagnosis - Problem List Patient Problems: Active and Suspected Problems (Last Reviewed 06/11/17 @ 11:16 by Yee Quezada) DKA (diabetic ketoacidoses) (Acute) Date of Admission: 12/26/17 - Primary Discharge Diagnosis Active and Suspected Problems (Last Reviewed 06/11/17 @ 11:16 by Yee Quezada) DKA (diabetic ketoacidoses) (Acute) - Secondary Discharge Diagnosis Chronic Problems (Last Reviewed 06/11/17 @ 11:16 by Yee Quezada) H/O percutaneous transluminal coronary angioplasty (Chronic) PTCA and BMS to the [facility] 04/06/2011 HTN (hypertension) (Chronic) HLD (hyperlipidemia) (Chronic) Atrial flutter (Chronic) Atherosclerotic heart disease of [place] coronary artery without angina pectoris (Chronic) PTCA and BMS to the [facility] 04/06/2011; [facility] 04/03/2011 Ventricular septal defect (Chronic) Paroxysmal atrial fibrillation (Chronic) Hypertension (Chronic) Hyperlipidemia (Chronic) Coronary artery disease (Chronic) Status post stent History of ischemic multifocal multiple vascular territories stroke (Chronic) With no residual deficit Status post abdominal surgery, follow-up exam (Chronic) Hypokalemia (Chronic) Hospital Course and Treatment Summary of Care Provided: The patient is a 62 year old F [] Discharge Activity: Return to Normal Activity Call your doctor if you observe: Fever of 101 or Higher, Shortness of breath, Chest pain Home Medications: Medications to take at Discharge Calcium/Mag/Zinc 1 tab PO DAILY 08/13/13 Cyanocobalamin [Vitamin B12] 250 mcg PO DAILY 08/13/13 Echinacea 380 mg PO DAILY PRN 08/13/13 Glucosamine Sulfate Dipot Chlr [Glucosamine Relief] 500 mg PO DAILY 08/13/13 Multivitamins,Therapeutic [Multivitamin] 1 tablet PO DAILY 08/13/13 [place]-3/Dha/Epa/Fish Oil [Fish Oil Dr 500 mg Softgel] 500 mg PO BID 08/13/13 traZODone [Desyrel] 100 mg PO QHS 08/13/13 lorazepam 0.5 mg tablet 0.5 mg PO TID PRN PRN tab 06/11/17 apixaban 5 mg tablet 5 mg PO BID #180 tab 12/15/17 Aspirin [Aspirin EC] 81 mg PO DAILY 12/26/17 Ibuprofen [Ibu] 800 mg PO TIDCM PRN 12/26/17 Metoprolol Tartrate [Lopressor (beta wally)] 50 mg PO BID 12/26/17 Sertraline HCl [Zoloft] 200 mg PO BID 12/26/17 Ciprofloxacin/Ciprofloxa HCl [Ciprofloxacin ER 500 mg Tablet] 500 mg PO BID #10 tab 12/28/17 Insulin Glargine [Lantus SoloStar Pen] 15 units SC BREAKFAST #30 pen 12/28/17 Metformin HCl [Glucophage] 500 mg PO BIDCM #60 tab 12/28/17 Na Biphos/Potassium Phosphate [Neutra-Phos Packet] 1 packet PO 4X/DAYCM #60 packet 12/28/17 Potassium Chloride 20 meq PO DAILY #30 packet 12/28/17 Following Prescrptions Were Given to Patient: Insulin Glargine [Lantus SoloStar Pen] 15 units SC BREAKFAST #30 pen Potassium Chloride 20 meq PO DAILY #30 packet Ciprofloxacin/Ciprofloxa HCl [Ciprofloxacin ER 500 mg Tablet] 500 mg PO BID #10 tab Metformin HCl [Glucophage] 500 mg PO BIDCM #60 tab Na Biphos/Potassium Phosphate [Neutra-Phos Packet] 1 packet PO 4X/DAYCM #60 packet Primary Care Physician: Kohi Ramos MD [STAFF PHYSICIAN] - Please follow up with your Primary Care Physician in: one week Patient Instructions: What Is Type 2 Diabetes?, Using Injected Insulin, Healthy Meals for Diabetes Medical Necessity - Tobacco Use Smoking Status: Current every day smoker
--- NOTE | 2017-12-28 14:00 | PCM.PN.HOSP ---
Patient Problems: Active and Suspected Problems (Last Reviewed 06/11/17 @ 11:16 by Yee Quezada) DKA (diabetic ketoacidoses) (Acute) Subjective: Patient is a 62-year-old female with a history of diabetes mellitus, hypertension, paroxysmal A. fib, hyperlipidemia. She was admitted with a complaint of progressive nausea and feeling unwell for 3 days prior to admission. She had also decreased intake and progressive weakness with associated diarrhea and no abdominal pain. She was admitted and found to have DKA with elevated anion gap, elevated blood sugars and positive ketones. She was started on insulin drip. Patient seen and examined. She was quite confused and said she has problems with her memory from when she had an accident. She complained of low abdominal pain and some subjective fevers but denied any chills, any cough or chest pain, any diarrhea vomiting. She admitted to having frequency of urination prior to admission but denied any polydipsia. Patient was admitted and managed for DKA and UTI. She was started on IV ciprofloxacin and Closed with IV fluid administration. She was also noted to have hypomagnesemia, hypokalemia and hypophosphatemia all of which were replaced. She was started on Lantus insulin metformin 500 mg twice daily and her other oral hypoglycemic agents were held. Patient seen and examined. She is much more alert this morning and has no complaints. She had a good night and denies any fever or chills, any cough or chest pain, any shortness of breath, any abdominal pain, any diarrhea vomiting. Patient had not been compliant with oral hypoglycemics because of the cost and so pretty much stopped taking them without informing her primary care doctor. Review of systems otherwise negative. Vitals/I&O's: Vital Signs Temp Pulse Resp BP Pulse Ox 98.2 F 85 15 122/64 H 92 12/28/17 09:07 12/28/17 12:03 12/28/17 09:07 12/28/17 10:28 12/28/17 09:07 Oxygen Flow Rate (L/min) 2 Oxygen Delivery Method Room Air Weight: 199 lb 11.821 oz Body Mass Index (BMI) 29.2 Intake and Output for Last 24 Hours 12/26/17 12/27/17 12/28/17 23:59 23:59 23:59 Intake Total 2412 / 2412 3967 / 3967 3873 / 3873 Output Total 250 / 250 1250 / 1250 1000 / 1000 Balance 2162 / 2162 2717 / 2717 2873 / 2873 General: Alert, Oriented x3, Cooperative, No apparent distress HEENT: Atraumatic, PERRLA, EOMI, Normocephalic Oral: Moist Mucosa Neck: Supple, No JVD, Negative Carotid Bruits Lungs: Clear to auscultation, Normal air movement, No rhonchi, No wheeze, No rales Cardiovascular: Regular rate, Regular Rhythm, Normal S1, Normal S2, No murmurs Abdomen: Bowel Sounds Present, Soft, Non Tender, Non-Distended, No Hepato-splenomegaly Extremities: No clubbing, No cyanosis, No edema, Capillary Refill Less than 3 Seconds Skin: No rashes, No breakdown Musculoskeletal: No Tenderness to Palpation of Joints or Extremities Lymphatic: No Cervical, Supraclavicular, or Inguinal Adenopathy Neurological: Cranial nerves II-XII grossly intact, Motor Exam 5/5 strength throughout Psych/Mental Status: Normal Affect, Appropriate, Alert and oriented to time, place, person, mood and affect Laboratory Results 12/27/17 15:29: TSH 0.97 12/27/17 16:04: POC Glucose 242 H 12/27/17 18:36: POC Glucose 269 H 12/27/17 21:04: POC Glucose 230 H 12/28/17 01:51: POC Glucose 209 H 12/28/17 05:20: WBC 11.2 H, RBC 3.41 L, Hgb 10.5 L, Hct 29.9 L, MCV 87.7, MCH 30.8, MCHC 35.1, RDW 13.8, RDW Differential 42.6, Plt Count 146 L, MPV 11.0, Immature Gran % (Auto) 1.100 H, Neut % (Auto) 81.0 H, Lymph % (Auto) 7.9 L, Nolan % (Auto) 9.7, Eos % (Auto) 0.2, Baso % (Auto) 0.1, Absolute Neuts (auto) 9.1 H, Absolute Lymphs (auto) 0.89, Total Counted Not Reportable 12/28/17 05:20: Sodium Cancelled, Potassium Cancelled, Chloride Cancelled, Carbon Dioxide Cancelled, Anion Gap Cancelled, BUN Cancelled, Creatinine Cancelled, Estim Creat Clear Calc Cancelled, Est GFR (MDRD) Af Amer Cancelled, Est GFR (MDRD) Non-Af Cancelled, BUN/Creatinine Ratio Cancelled, Glucose Cancelled, Calcium Cancelled, Total Bilirubin Cancelled, AST Cancelled, ALT Cancelled, Alkaline Phosphatase Cancelled, Total Protein Cancelled, Albumin Cancelled, Globulin Cancelled, Albumin/Globulin Ratio Cancelled 12/28/17 06:01: POC Glucose 194 H 12/28/17 06:36: Sodium 137, Potassium 3.0 L, Chloride 106, Carbon Dioxide 20.0 L, Anion Gap 11, BUN 17, Creatinine 0.74, Estim Creat Clear Calc 78.50, Est GFR (MDRD) Af Amer 102, Est GFR (MDRD) Non-Af 84, BUN/Creatinine Ratio 23.0 H, Glucose 196 H, Calcium 7.9 L, Total Bilirubin 0.50, AST 122 H, ALT 95 H, Alkaline Phosphatase 92, Total Protein 6.1 L, Albumin 1.9 L, Globulin 4.2, Albumin/Globulin Ratio 0.5 L 12/28/17 06:36: Phosphorus 1.6 L 12/28/17 10:33: POC Glucose 237 H Diagnostic Data Chest X-Ray 12/26/17 16:45 IMPRESSION: There is bilateral basilar infiltrate / atelectasis. 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 There is no evidence of acute infarct or intracranial hemorrhage. Electronically Signed: Oscar Louis MD at 17:40 EDT , Service support , Current Medications Apixaban (Eliquis) 5 mg PO BID [facility]END[facility] TO [facility] Last Admin: 12/28/17 10:28 Dose: 5 mg Aspirin (Ecotrin) 81 mg PO DAILY [facility] Last Admin: 12/28/17 10:27 Dose: 81 mg Cyclobenzaprine HCl (Flexeril) 10 mg PO TID [facility] Last Admin: 12/27/17 05:09 Dose: 10 mg Dextrose (D50w Syringe) 0 gm IV X1 PRN; Protocol PRN Reason: AGITATION Ciprofloxacin (Cipro) 400 mg in 200 mls @ 200 mls/hr IV Q12 [facility] Last Admin: 12/28/17 10:21 Dose: 200 mls/hr Insulin Glargine (Lantus (Bkc)) 15 units SC BREAKFAST PENDING [facility] TO [facility] Last Admin: 12/28/17 08:55 Dose: 15 units Insulin Human Lispro (Humalog Kwikpen (Bkc)) 0 unit SC Q4 LATHA PRN Reason: Protocol Last Admin: 12/28/17 10:34 Dose: 3 u Metformin HCl (Glucophage) 500 mg PO BIDCM [facility] Last Admin: 12/28/17 08:54 Dose: 500 mg Metoprolol Tartrate (Lopressor (Beta Guzman)) 50 mg PO BID [facility] Last Admin: 12/28/17 10:28 Dose: 50 mg Potassium Phos/Sodium Phos (Neutra-Phos Packet) [facility] Last Admin: 12/28/17 12:52 Dose: 1 packet Sertraline HCl (Zoloft) 200 mg PO BID [facility] Last Admin: 12/28/17 10:27 Dose: 200 mg Sodium Chloride () 5 - 30 ml IV UD PRN PRN Reason: SALINE FLUSH Last Admin: 12/27/17 01:30 Dose: 20 ml Medical Necessity - Tobacco Use Smoking Status: Current every day smoker Assessment/Plan All Active Problems (Last Reviewed 06/11/17 @ 11:16 by Yee Quezada) DKA (diabetic ketoacidoses) (Acute) 1. DKA due to noncompliance Resolved. Anion gap is closing patient's feels well. Bicarb is up to 20. A1C was 12.5 Patient received subcu Lantus 20 units yesterday and started on subcu Lantus 50 units daily. Will start on metformin 500 mg twice daily. Had been prescribed glipizide and sitagliptin at home but had not been compliant and states was due to the cost of it. She also did not follow up much with her primary care doctor. counseled strongly on taking her medications. 2. Hypomagnesemia and hypocalcemia resolving. Will monitor and replace as needed. 3. HypoKalemia: Potassium is 3 today we will replace and monitor. 4. Altered mental status, possibly due to DKA and UTI and medicaiton induced also Resolved. Trazodone Flexeril on hold. CT of the head done was negative for any acute ST changes and only showed evidence of old infarcts. IV ciprofloxacin for UTI. Urine cultures pending. fall precautions 4. UTI Complained of frequency of urine. UA showed 2+ bacteria and 5-10 white cells. No leukocyte esterase seen. On IV ciprofloxacin. Urine cultures pending. 5. Hyponatremia: resolved. 6. Paroxysmal Afib: currently rate controlled. On eliquis 5mg bid. Patient cannot tell what dose of Eliquis she was on at home. Will continue Eliquis 5 mg twice daily and continue with PCP to adjust dose as needed. Will monitor and replace electrolytes as needed. 7. Hyperlipidemia: On statin 8. Hypertension: controlled. On metoprolol DVT prophylaxis: on eliquis Disposition: Patient stable and was well enough to go home today. Patient was discharged but family came and said they were not comfortable with patient going home today as she was not back to her baseline falls at home. Discharge counseled. To try and get patient's list of medications from PCP tomorrow as patient does not know the medications that she is on and family does not know either but he thinks she is on too many medications. This note was generated with TRAFI dictation software. It may contain incorrect words, spelling, and punctuation that were not noted in checking the note before signing. 5:43pm I was informed by nurse that patient was noted to desaturate to 86% also room air while sleeping. Patient was noted to be snoring and family says she snores a lot at home. The suspicion for sleep apnea. Patient to be referred for sleep study on discharge. Patient's saturation went up to mid 90s after being put on 2 L of oxygen. Code Visit Inpatient E&M: 65325 Subs Hosp L2
--- NOTE | 2017-12-28 14:08 | PN_ITS ---
Patient Problems: Active and Suspected Problems (Last Reviewed 06/11/17 @ 11:16 by Yee Quezada) DKA (diabetic ketoacidoses) (Acute) Subjective: Patient is a 62-year-old female with a history of diabetes mellitus, hypertension, paroxysmal A. fib, hyperlipidemia. She was admitted with a complaint of progressive nausea and feeling unwell for 3 days prior to admission. She had also decreased intake and progressive weakness with associated diarrhea and no abdominal pain. She was admitted and found to have DKA with elevated anion gap, elevated blood sugars and positive ketones. She was started on insulin drip. Patient seen and examined. She was quite confused and said she has problems with her memory from when she had an accident. She complained of low abdominal pain and some subjective fevers but denied any chills, any cough or chest pain, any diarrhea vomiting. She admitted to having frequency of urination prior to admission but denied any polydipsia. Patient was admitted and managed for DKA and UTI. She was started on IV ciprofloxacin and Closed with IV fluid administration. She was also noted to have hypomagnesemia, hypokalemia and hypophosphatemia all of which were replaced. She was started on Lantus insulin metformin 500 mg twice daily and her other oral hypoglycemic agents were held. Patient seen and examined. She is much more alert this morning and has no complaints. She had a good night and denies any fever or chills, any cough or chest pain, any shortness of breath, any abdominal pain, any diarrhea vomiting. Patient had not been compliant with oral hypoglycemics because of the cost and so pretty much stopped taking them without informing her primary care doctor. Review of systems otherwise negative. Vitals/I&O's: Vital Signs Temp Pulse Resp BP Pulse Ox 98.2 F 85 15 122/64 H 92 12/28/17 09:07 12/28/17 12:03 12/28/17 09:07 12/28/17 10:28 12/28/17 09:07 Oxygen Flow Rate (L/min) 2 Oxygen Delivery Method Room Air Weight: 199 lb 11.821 oz Body Mass Index (BMI) 29.2 Intake and Output for Last 24 Hours 12/26/17 12/27/17 12/28/17 23:59 23:59 23:59 Intake Total 2412 / 2412 3967 / 3967 3873 / 3873 Output Total 250 / 250 1250 / 1250 1000 / 1000 Balance 2162 / 2162 2717 / 2717 2873 / 2873 General: Alert, Oriented x3, Cooperative, No apparent distress HEENT: Atraumatic, PERRLA, EOMI, Normocephalic Oral: Moist Mucosa Neck: Supple, No JVD, Negative Carotid Bruits Lungs: Clear to auscultation, Normal air movement, No rhonchi, No wheeze, No rales Cardiovascular: Regular rate, Regular Rhythm, Normal S1, Normal S2, No murmurs Abdomen: Bowel Sounds Present, Soft, Non Tender, Non-Distended, No Hepato- splenomegaly Extremities: No clubbing, No cyanosis, No edema, Capillary Refill Less than 3 Seconds Skin: No rashes, No breakdown Musculoskeletal: No Tenderness to Palpation of Joints or Extremities Lymphatic: No Cervical, Supraclavicular, or Inguinal Adenopathy Neurological: Cranial nerves II-XII grossly intact, Motor Exam 5/5 strength throughout Psych/Mental Status: Normal Affect, Appropriate, Alert and oriented to time, place, person, mood and affect Laboratory Results 12/27/17 15:29: TSH 0.97 12/27/17 16:04: POC Glucose 242 H 12/27/17 18:36: POC Glucose 269 H 12/27/17 21:04: POC Glucose 230 H 12/28/17 01:51: POC Glucose 209 H 12/28/17 05:20: WBC 11.2 H, RBC 3.41 L, Hgb 10.5 L, Hct 29.9 L, MCV 87.7, MCH 30.8, MCHC 35.1, RDW 13.8, RDW Differential 42.6, Plt Count 146 L, MPV 11.0, Immature Gran % (Auto) 1.100 H, Neut % (Auto) 81.0 H, Lymph % (Auto) 7.9 L, Morrow % (Auto) 9.7, Eos % (Auto) 0.2, Baso % (Auto) 0.1, Absolute Neuts (auto) 9.1 H, Absolute Lymphs (auto) 0.89, Total Counted Not Reportable 12/28/17 05:20: Sodium Cancelled, Potassium Cancelled, Chloride Cancelled, Carbon Dioxide Cancelled, Anion Gap Cancelled, BUN Cancelled, Creatinine Cancelled, Estim Creat Clear Calc Cancelled, Est GFR (MDRD) Af Amer Cancelled, Est GFR (MDRD) Non-Af Cancelled, BUN/Creatinine Ratio Cancelled, Glucose Cancelled, Calcium Cancelled, Total Bilirubin Cancelled, AST Cancelled, ALT Cancelled, Alkaline Phosphatase Cancelled, Total Protein Cancelled, Albumin Cancelled, Globulin Cancelled, Albumin/Globulin Ratio Cancelled 12/28/17 06:01: POC Glucose 194 H 12/28/17 06:36: Sodium 137, Potassium 3.0 L, Chloride 106, Carbon Dioxide 20.0 L , Anion Gap 11, BUN 17, Creatinine 0.74, Estim Creat Clear Calc 78.50, Est GFR ( MDRD) Af Amer 102, Est GFR (MDRD) Non-Af 84, BUN/Creatinine Ratio 23.0 H, Glucose 196 H, Calcium 7.9 L, Total Bilirubin 0.50, AST 122 H, ALT 95 H, Alkaline Phosphatase 92, Total Protein 6.1 L, Albumin 1.9 L, Globulin 4.2, Albumin/Globulin Ratio 0.5 L 12/28/17 06:36: Phosphorus 1.6 L 12/28/17 10:33: POC Glucose 237 H Diagnostic Data Chest X-Ray 12/26/17 16:45 IMPRESSION: There is bilateral basilar infiltrate / atelectasis. 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 There is no evidence of acute infarct or intracranial hemorrhage. Electronically Signed: Oscar Louis MD at 17:40 EDT , Service support , Current Medications Apixaban (Eliquis) 5 mg PO BID [facility] Last Admin: 12/28/17 10:28 Dose: 5 mg Aspirin (Ecotrin) 81 mg PO DAILY [facility] Last Admin: 12/28/17 10:27 Dose: 81 mg Cyclobenzaprine HCl (Flexeril) 10 mg PO TID [facility] Last Admin: 12/27/17 05:09 Dose: 10 mg Dextrose (D50w Syringe) 0 gm IV X1 PRN; Protocol PRN Reason: AGITATION Ciprofloxacin (Cipro) 400 mg in 200 mls @ 200 mls/hr IV Q12 [facility] Last Admin: 12/28/17 10:21 Dose: 200 mls/hr Insulin Glargine (Lantus (Bkc)) 15 units SC BREAKFAST [facility] Last Admin: 12/28/17 08:55 Dose: 15 units Insulin Human Lispro (Humalog Kwikpen (Bkc)) 0 unit SC Q4 LATHA PRN Reason: Protocol Last Admin: 12/28/17 10:34 Dose: 3 u Metformin HCl (Glucophage) 500 mg PO BIDCM [facility] Last Admin: 12/28/17 08:54 Dose: 500 mg Metoprolol Tartrate (Lopressor (Beta Guzman)) 50 mg PO BID [facility] Last Admin: 12/28/17 10:28 Dose: 50 mg Potassium Phos/Sodium Phos (Neutra-Phos Packet) [facility] Last Admin: 12/28/17 12:52 Dose: 1 packet Sertraline HCl (Zoloft) 200 mg PO BID [facility] Last Admin: 12/28/17 10:27 Dose: 200 mg Sodium Chloride () 5 - 30 ml IV UD PRN PRN Reason: SALINE FLUSH Last Admin: 12/27/17 01:30 Dose: 20 ml Medical Necessity - Tobacco Use Smoking Status: Current every day smoker Assessment/Plan All Active Problems (Last Reviewed 06/11/17 @ 11:16 by Yee Quezada) DKA (diabetic ketoacidoses) (Acute) 1. DKA due to noncompliance * Resolved. Anion gap is closing patient's feels well. * Bicarb is up to 20. A1C was 12.5 * Patient received subcu Lantus 20 units yesterday and started on subcu Lantus 50 units daily. * Will start on metformin 500 mg twice daily. * Had been prescribed glipizide and sitagliptin at home but had not been compliant and states was due to the cost of it. She also did not follow up much with her primary care doctor. * counseled strongly on taking her medications. * 2. Hypomagnesemia and hypocalcemia * resolving. Will monitor and replace as needed. * 3. HypoKalemia: Potassium is 3 today we will replace and monitor. * 4. Altered mental status, possibly due to DKA and UTI and medicaiton induced also * Resolved. Trazodone Flexeril on hold. CT of the head done was negative for any acute ST changes and only showed evidence of old infarcts. * IV ciprofloxacin for UTI. Urine cultures pending. * fall precautions * 4. UTI * Complained of frequency of urine. * UA showed 2+ bacteria and 5-10 white cells. No leukocyte esterase seen. * On IV ciprofloxacin. Urine cultures pending. * 5. Hyponatremia: resolved. 6. Paroxysmal Afib: * currently rate controlled. On eliquis 5mg bid. Patient cannot tell what dose of Eliquis she was on at home. Will continue Eliquis 5 mg twice daily and continue with PCP to adjust dose as needed. Will monitor and replace electrolytes as needed. 7. Hyperlipidemia: On statin 8. Hypertension: controlled. On metoprolol DVT prophylaxis: on eliquis Disposition: Patient stable and was well enough to go home today. Patient was discharged but family came and said they were not comfortable with patient going home today as she was not back to her baseline falls at home. Discharge counseled. To try and get patient's list of medications from PCP tomorrow as patient does not know the medications that she is on and family does not know either but he thinks she is on too many medications. This note was generated with Trust[employer] dictation software. It may contain incorrect words, spelling, and punctuation that were not noted in checking the note before signing. 5:43pm I was informed by nurse that patient was noted to desaturate to 86% also room air while sleeping. Patient was noted to be snoring and family says she snores a lot at home. The suspicion for sleep apnea. Patient to be referred for sleep study on discharge. Patient's saturation went up to mid 90s after being put on 2 L of oxygen. Code Visit Inpatient E&M: 73000 Subs Hosp L2
[2017-12-28 14:59] LABS: Magnesium 1.8 mg/dL (1.6-2.6)
[2017-12-28 15:51] LABS: Bedside Glucose 263 mg/dL (70-110)
[2017-12-28 18:00] LABS: Bedside Glucose 202 mg/dL (70-110)
--- NOTE | 2017-12-28 22:11 | EKG12_ITS ---
Test Reason : RYTHM CHANGE Blood Pressure : / mmHG Vent. Rate : 121 BPM Atrial Rate : 258 BPM P-R Int : 000 ms QRS Dur : 124 ms QT Int : 350 ms P-R-T Axes : 000 062 112 degrees QTc Int : 497 ms Atrial flutter with variable A-V block Abnormal ECG Confirmed by TAMIKO KINSEY, RADHA ([id number]), technical editor LILIANE QUINTERO ([id number] on 12/30/2017 2:19:54 PM Referred By: CHAVA Confirmed By:RADHA MORRISON MD
[2017-12-28 22:16] LABS: Bedside Glucose 255 mg/dL (70-110)
[2017-12-28] MEDS: 0.9% NaCl Peripheral Flush Adult/Peds IV (22:41)
[2017-12-29] VITALS (10 sets, daily range): BP systolic 118–132; BP diastolic 72–78; PULSE 81–95; RESP 16–18; TEMP 36.6; O2SAT 92–93
[2017-12-29 06:43] LABS: Anion Gap 12 (5-15); BUN 16 mg/dL (7-18); Calcium,Total 8.2 mg/dL (8.5-10.1); Chloride 105 mmol/L (98-107); Creatinine, Serum 0.73 mg/dL (0.55-1.02); EST Glomerular Filtration Rate 86 mL/min (>60); Est Glom Filt Rate - Afr Amer 104 mL/min (>60); Estimated Creatinine Clearance 79.57 ml/min; Glucose 275 mg/dL (74-106); Magnesium 1.8 mg/dL (1.6-2.6); Potassium 3.2 mmol/L (3.5-5.1); Sodium Level 138 mmol/L (136-145)
[2017-12-29 06:49] LABS: Absolute Lymphocyte Count 1.02 X10^3/ul (0.83-4.51); Absolute Neutrophil Count 7.9 X10^3/uL (2.0-7.7); Basophil# 0.03 X10^3/uL; Basophil% 0.3 % (0-1); Eosinophil# 0.02 X10^3/uL; Eosinophils% 0.2 % (0-5); Hematocrit 32.6 % (37-47); Hemoglobin 11.3 g/dl (12.0-15.0); Lymphocyte # 1.02 X10^3/ul (4.0); Mean Corp Hgb Conc 34.7 g/gl (32-36); Mean Corpuscular Hgb 30.5 pg (27.0-32.0); Mean Corpuscular Volume 88.1 fL (81-99); Mean Platelet Vol. 10.5 fl (6.2-12.0); Monocyte# 0.97 X10^3/uL; Monocyte% 9.5 % (0-10); Neutrophil % 77.2 % (47-70); Platelet Count 184 K/mm3 (150-450); RBC Distribution Width CV 14.2 % (11.6-14.6); RBC Distribution Width SD 44.7 fl (35.1-43.9); White Blood Count 10.2 K/mm3 (4.4-11.0)
[2017-12-29 06:55] LABS: Bedside Glucose 338 mg/dL (70-110)
[2017-12-29 07:09] LABS: POSITIVE COUNT NO; POSITIVE DIFFERENTIAL NO; POSITIVE MORPHOLOGY NO
[2017-12-29] MEDS: Na Biphos/Potassium Phosphate PACKET 1 PACKET PO ×2 (08:47→12:39)
[2017-12-29] MEDS: Insulin Lispro 100 UNIT/ML INSULN.PEN SC ×2 (08:48→12:39)
[2017-12-29] MEDS: Ciprofloxacin 400 MG/200 ML BAG 200 MG IV (10:21)
[2017-12-29] MEDS: 0.9% NaCl Peripheral Flush Adult/Peds IV (10:21)
[2017-12-29] MEDS: APIXABAN 5 MG TABLET PO (10:21)
[2017-12-29] MEDS: Metoprolol Tartrate 50 MG Tablet PO (10:21)
[2017-12-29] MEDS: Aspirin E.C. 81 MG Tablet PO (10:21)
[2017-12-29] MEDS: Sertraline 100 MG Tablet 200 MG PO (10:21)
--- NOTE | 2017-12-29 11:42 | CASEMGMT ---
Pt and son voice concerns regarding cost of insulin and state that pt has not been taking due to same. Call to [facility] pharmacy and per Leslie, pharmacist, pt's lantus and k+ phos packet's are not covered and suggest basaglar in place of lantus and k+ pills in placed of packet. According to demographic page, pt has MCR with MMO as secondary insurance and then AARP. This RN CM to room to speak with pt and family regarding to same. Pt is unsure about what insurance is active, coverage, etc. Pt has multiple cards in wallet. Pt has a [employer] A card that is active and this RN CM placed call to MMO and pt is still active with them as well. Call to registration to verify all and per Gifty, pt does not currently have MCR but has MMO, AARP and [employer] in that order. Chart was updated at this time. Call to [facility] to verify that they still have MMO in the system as coverage as well and per linh, the lantus is covered under pt's MMO but the co-pay is $60 and the [place] will not cover that as that is not a med that is covered under their plan. Pt/family updated on all at this time and pt given number for [facility] as well, voice understanding. Pt's family states that pt's new PCP is Dr. Scott and she is scheduled to see her for the first time on this Friday. Chart updated at this time. Dr. Gong updated on all at this time and voices understanding. Prescriptions to be changed and resent to [facility] by him and this RN CM will then verify coverage/co-pay at that time. Pt/family voice no further questions/concerns/needs at this time. eSlam RN CM
[2017-12-29 11:45] LABS: Bedside Glucose 258 mg/dL (70-110)
--- NOTE | 2017-12-29 12:47 | PCM.DC ---
- Discharge Diagnoses Current Active Problems: Current Active and Chronic Problems (Last Reviewed 06/11/17 @ 11:16 by Yee Quezada) DKA (diabetic ketoacidoses) (Acute) You will use the following diet at home:: Calorie/Carbohydrate Controlled (specify 1200, 1400, etc) - 1800 dyllan Your food should be the consistency of: Regular Your liquids should be the consistency of: Regular/Thin Discharge Activity: Return to Normal Activity Weight Bearing Status: Full weight bearing Call your doctor if you observe: Fever of 101 or Higher, Shortness of breath, Chest pain Instructions: What Is Type 2 Diabetes?, Using Injected Insulin, Healthy Meals for Diabetes Allergies/Adverse Reactions: Allergies No Known Allergies Allergy (Verified 12/26/17 16:15) Medications to take at Discharge Multivitamins,Therapeutic [Multivitamin] 1 tablet PO DAILY 08/13/13 apixaban 5 mg tablet 5 mg PO BID #180 tab 12/15/17 Aspirin [Aspirin EC] 81 mg PO DAILY 12/26/17 Atorvastatin Calcium [Lipitor] 20 mg PO QHS #30 tablet 12/29/17 Cyclobenzaprine [Flexeril] 5 mg PO TID PRN PRN #30 tablet 12/29/17 Metoprolol Tartrate [Lopressor (beta wally)] 50 mg PO BID #60 tablet 12/29/17 Sertraline HCl [Zoloft] 200 mg PO DAILY #1 tablet 12/29/17 Sitagliptin Phos/Metformin HCl [Janumet Xr 50-1,000 mg Tablet] 1 tablet PO DAILY #30 tbmp.24hr 12/29/17 glipiZIDE XL [Glucotrol Xl] 10 mg PO DAILY@0800 #30 tab 12/29/17 The following prescriptions were given: Atorvastatin Calcium [Lipitor] 20 mg PO QHS #30 tablet Cyclobenzaprine [Flexeril] 5 mg PO TID PRN PRN #30 tablet PRN Reason: Pain glipiZIDE XL [Glucotrol Xl] 10 mg PO DAILY@0800 #30 tab Sertraline HCl [Zoloft] 200 mg PO DAILY #1 tablet Sitagliptin Phos/Metformin HCl [Janumet Xr 50-1,000 mg Tablet] 1 tablet PO DAILY #30 tbmp.24hr Metoprolol Tartrate [Lopressor (beta wally)] 50 mg PO BID #60 tablet Primary Care Physician: Khoi Ramos MD [STAFF PHYSICIAN] - Test Results: Test results from this visit will be discussed in further detail at your follow-up appointment, if applicable. Please Follow Up With: Obed Scott MD When: this week Proposed Discharge Date: 12/28/17
--- NOTE | 2017-12-29 12:51 | DCINST_ITS ---
- Discharge Diagnoses Current Active Problems: Current Active and Chronic Problems (Last Reviewed 06/11/17 @ 11:16 by Yee Quezada) DKA (diabetic ketoacidoses) (Acute) You will use the following diet at home:: Calorie/Carbohydrate Controlled ( specify 1200, 1400, etc) - 1800 dyllan Your food should be the consistency of: Regular Your liquids should be the consistency of: Regular/Thin Discharge Activity: Return to Normal Activity Weight Bearing Status: Full weight bearing Call your doctor if you observe: Fever of 101 or Higher, Shortness of breath, Chest pain Instructions: What Is Type 2 Diabetes?, Using Injected Insulin, Healthy Meals for Diabetes Allergies/Adverse Reactions: Allergies No Known Allergies Allergy (Verified 12/26/17 16:15) Medications to take at Discharge Multivitamins,Therapeutic [Multivitamin] 1 tablet PO DAILY 08/13/13 apixaban 5 mg tablet 5 mg PO BID #180 tab 12/15/17 Aspirin [Aspirin EC] 81 mg PO DAILY 12/26/17 Atorvastatin Calcium [Lipitor] 20 mg PO QHS #30 tablet 12/29/17 Cyclobenzaprine [Flexeril] 5 mg PO TID PRN PRN #30 tablet 12/29/17 Metoprolol Tartrate [Lopressor (beta wally)] 50 mg PO BID #60 tablet 12/29/17 Sertraline HCl [Zoloft] 200 mg PO DAILY #1 tablet 12/29/17 Sitagliptin Phos/Metformin HCl [Janumet Xr 50-1,000 mg Tablet] 1 tablet PO DAILY #30 tbmp.24hr 12/29/17 glipiZIDE XL [Glucotrol Xl] 10 mg PO DAILY@0800 #30 tab 12/29/17 The following prescriptions were given: Atorvastatin Calcium [Lipitor] 20 mg PO QHS #30 tablet Cyclobenzaprine [Flexeril] 5 mg PO TID PRN PRN #30 tablet PRN Reason: Pain glipiZIDE XL [Glucotrol Xl] 10 mg PO DAILY@0800 #30 tab Sertraline HCl [Zoloft] 200 mg PO DAILY #1 tablet Sitagliptin Phos/Metformin HCl [Janumet Xr 50-1,000 mg Tablet] 1 tablet PO DAILY #30 tbmp.24hr Metoprolol Tartrate [Lopressor (beta wally)] 50 mg PO BID #60 tablet Primary Care Physician: Khoi Ramos MD [STAFF PHYSICIAN] - Test Results: Test results from this visit will be discussed in further detail at your follow- up appointment, if applicable. Please Follow Up With: Obed Scott MD When: this week Proposed Discharge Date: 12/28/17
[2017-12-29 14:16] LABS: Pathologist Review Reviewed
--- NOTE | 2018-01-01 08:18 | PCM.DC.SUM ---
Discharge Date and Diagnosis Date of Admission: 12/26/17 Date of Discharge: 12/29/17 - Primary Discharge Diagnosis #1 diabetic ketoacidosis #2 hypomagnesemia #3 metabolic encephalopathy secondary to DKA #4 paroxysmal atrial fibrillation #5 hyponatremia #6 hypokalemia #7 hypocalcemia #8 noncompliance with medical regimen - Secondary Discharge Diagnosis Chronic Problems (Last Reviewed 06/11/17 @ 11:16 by Yee Quezada) H/O percutaneous transluminal coronary angioplasty (Chronic) PTCA and BMS to the [facility] 04/06/2011 HTN (hypertension) (Chronic) HLD (hyperlipidemia) (Chronic) Atrial flutter (Chronic) Atherosclerotic heart disease of [place] coronary artery without angina pectoris (Chronic) PTCA and BMS to the 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 Patient is a type II diabetic but is noncompliant with outpatient treatment had been out of her insulin for more than a month. Workup in the emergency room revealed her blood glucose to be 415, anion gap was 15, she had positive ketones and was felt to be in DKA. Patient was given fluids in the emergency room and a blood gas showed a pH of 7.37. Potassium was low at 3.4, BUN was elevated at 24. Patient was given IV fluids in the ER, subcu insulin was administered, and she was evaluated by the hospitalist service who felt that she was in DKA but could be managed on PCU with fluids and insulin. Patient was seen by PT and OT, patient had mild confusion and it was felt to be secondary to metabolic encephalopathy. Patient was also felt to have a urinary tract infection but she had been complaining of frequent urination there is no evidence of a UTI so at the time of discharge her antibiotics were stopped. There were no major complications during her hospital stay, on 12/29/17, patient was seen and examined felt to be in stable condition for discharge home, due to compliance issues, patient was not discharged home on insulin but was discharged on a regimen of oral hypoglycemic agents. Discharge Activity: Return to Normal Activity Weight Bearing Status: Full weight bearing Call your doctor if you observe: Fever of 101 or Higher, Shortness of breath, Chest pain Home Medications: Medications to take at Discharge Multivitamins,Therapeutic [Multivitamin] 1 tablet PO DAILY 08/13/13 apixaban 5 mg tablet 5 mg PO BID #180 tab 12/15/17 Aspirin [Aspirin EC] 81 mg PO DAILY 12/26/17 Atorvastatin Calcium [Lipitor] 20 mg PO QHS #30 tablet 12/29/17 Cyclobenzaprine [Flexeril] 5 mg PO TID PRN PRN #30 tablet 12/29/17 Metoprolol Tartrate [Lopressor (beta wally)] 50 mg PO BID #60 tablet 12/29/17 Sertraline HCl [Zoloft] 200 mg PO DAILY #1 tablet 12/29/17 Sitagliptin Phos/Metformin HCl [Janumet Xr 50-1,000 mg Tablet] 1 tablet PO DAILY #30 tbmp.24hr 12/29/17 glipiZIDE XL [Glucotrol Xl] 10 mg PO DAILY@0800 #30 tab 12/29/17 Following Prescrptions Were Given to Patient: Atorvastatin Calcium [Lipitor] 20 mg PO QHS #30 tablet Cyclobenzaprine [Flexeril] 5 mg PO TID PRN PRN #30 tablet PRN Reason: Pain glipiZIDE XL [Glucotrol Xl] 10 mg PO DAILY@0800 #30 tab Sertraline HCl [Zoloft] 200 mg PO DAILY #1 tablet Sitagliptin Phos/Metformin HCl [Janumet Xr 50-1,000 mg Tablet] 1 tablet PO DAILY #30 tbmp.24hr Metoprolol Tartrate [Lopressor (beta wlaly)] 50 mg PO BID #60 tablet Primary Care Physician: Khoi Ramos MD [STAFF PHYSICIAN] - Please follow up with your Primary Care Physician in: one week Please Follow Up With: Obed Scott MD When: this week Patient Instructions: What Is Type 2 Diabetes?, Using Injected Insulin, Healthy Meals for Diabetes Disposition: Home Minutes spent on discharge:: 32 Patient Condition:: Stable Medical Necessity - Tobacco Use Smoking Status: Current every day smoker Meaningful Use Info Meaningful Use Diagnoses (Choose all that apply): None applicable Code Visit Inpatient E&M: 29607 Disch Hosp
--- NOTE | 2018-01-01 08:26 | DS.PCM_ITS ---
Discharge Date and Diagnosis Date of Admission: 12/26/17 Date of Discharge: 12/29/17 - Primary Discharge Diagnosis #1 diabetic ketoacidosis #2 hypomagnesemia #3 metabolic encephalopathy secondary to DKA #4 paroxysmal atrial fibrillation #5 hyponatremia #6 hypokalemia #7 hypocalcemia #8 noncompliance with medical regimen - Secondary Discharge Diagnosis Chronic Problems (Last Reviewed 06/11/17 @ 11:16 by Yee Quezada) H/O percutaneous transluminal coronary angioplasty (Chronic) PTCA and BMS to the [facility] 04/06/2011 HTN (hypertension) (Chronic) HLD (hyperlipidemia) (Chronic) Atrial flutter (Chronic) Atherosclerotic heart disease of [place] coronary artery without angina pectoris (Chronic) PTCA and BMS to the [facility] 04/06/2011; [facility] 04/03/2011 Ventricular septal defect (Chronic) Paroxysmal atrial fibrillation (Chronic) Hypertension (Chronic) Hyperlipidemia (Chronic) Coronary artery disease (Chronic) Status post stent History of ischemic multifocal multiple vascular territories stroke (Chronic) With no residual deficit Status post abdominal surgery, follow-up exam (Chronic) Hypokalemia (Chronic) Hospital Course and Treatment Operations: None Procedures: None Summary of Care Provided: The patient is a 62 year old F was seen in the emergency room at [facility] with chief complaint of nausea vomiting and diarrhea. Patient is a type II diabetic but is noncompliant with outpatient treatment had been out of her insulin for more than a month. Workup in the emergency room revealed her blood glucose to be 415, anion gap was 15, she had positive ketones and was felt to be in DKA. Patient was given fluids in the emergency room and a blood gas showed a pH of 7.37. Potassium was low at 3.4, BUN was elevated at 24. Patient was given IV fluids in the ER, subcu insulin was administered, and she was evaluated by the hospitalist service who felt that she was in DKA but could be managed on PCU with fluids and insulin. Patient was seen by PT and OT, patient had mild confusion and it was felt to be secondary to metabolic encephalopathy. Patient was also felt to have a urinary tract infection but she had been complaining of frequent urination there is no evidence of a UTI so at the time of discharge her antibiotics were stopped. There were no major complications during her hospital stay, on 12/29/17, patient was seen and examined felt to be in stable condition for discharge home, due to compliance issues, patient was not discharged home on insulin but was discharged on a regimen of oral hypoglycemic agents. Discharge Activity: Return to Normal Activity Weight Bearing Status: Full weight bearing Call your doctor if you observe: Fever of 101 or Higher, Shortness of breath, Chest pain Home Medications: Medications to take at Discharge Multivitamins,Therapeutic [Multivitamin] 1 tablet PO DAILY 08/13/13 apixaban 5 mg tablet 5 mg PO BID #180 tab 12/15/17 Aspirin [Aspirin EC] 81 mg PO DAILY 12/26/17 Atorvastatin Calcium [Lipitor] 20 mg PO QHS #30 tablet 12/29/17 Cyclobenzaprine [Flexeril] 5 mg PO TID PRN PRN #30 tablet 12/29/17 Metoprolol Tartrate [Lopressor (beta wally)] 50 mg PO BID #60 tablet 12/29/17 Sertraline HCl [Zoloft] 200 mg PO DAILY #1 tablet 12/29/17 Sitagliptin Phos/Metformin HCl [Janumet Xr 50-1,000 mg Tablet] 1 tablet PO DAILY #30 tbmp.24hr 12/29/17 glipiZIDE XL [Glucotrol Xl] 10 mg PO DAILY@0800 #30 tab 12/29/17 Following Prescrptions Were Given to Patient: Atorvastatin Calcium [Lipitor] 20 mg PO QHS #30 tablet Cyclobenzaprine [Flexeril] 5 mg PO TID PRN PRN #30 tablet PRN Reason: Pain glipiZIDE XL [Glucotrol Xl] 10 mg PO DAILY@0800 #30 tab Sertraline HCl [Zoloft] 200 mg PO DAILY #1 tablet Sitagliptin Phos/Metformin HCl [Janumet Xr 50-1,000 mg Tablet] 1 tablet PO DAILY #30 tbmp.24hr Metoprolol Tartrate [Lopressor (beta wally)] 50 mg PO BID #60 tablet Primary Care Physician: Khoi Ramos MD [STAFF PHYSICIAN] - Please follow up with your Primary Care Physician in: one week Please Follow Up With: Obed Scott MD When: this week Patient Instructions: What Is Type 2 Diabetes?, Using Injected Insulin, Healthy Meals for Diabetes Disposition: Home Minutes spent on discharge:: 32 Patient Condition:: Stable Medical Necessity - Tobacco Use Smoking Status: Current every day smoker Meaningful Use Info Meaningful Use Diagnoses (Choose all that apply): None applicable Code Visit Inpatient E&M: 24620 Disch Hosp
== END 2017-12-29 14:45 | disposition home or self-care (01) | DRG 637 ==
LOC: ED 17:25 → ICU 20:24 → PCU 12-27 05:20
PROVIDERS: Student in an Organized Health Care Education/Training Program; Admitting Provider Internal Medicine; Emergency Provider Emergency Medicine; Family Provider Internal Medicine; PCP Internal Medicine; Visit Provider Internal Medicine
DX: E11.10 Type 2 diabetes mellitus with ketoacidosis without coma (principal); G93.41 Metabolic encephalopathy; E87.1 Hypo-osmolality and hyponatremia; I48.0 Paroxysmal atrial fibrillation; E87.6 Hypokalemia; E83.51 Hypocalcemia; Z91.19 Patient's noncompliance with other medical treatment and regimen; E83.42 Hypomagnesemia; E78.5 Hyperlipidemia, unspecified; I10 Essential (primary) hypertension; I25.10 Atherosclerotic heart disease of native coronary artery without angina pectoris; F17.200 Nicotine dependence, unspecified, uncomplicated
CPT/HCPCS: 36415; 36600; 70450; 71045; 80048; 80053; 80076; 81001; 82009; 82803; 82962; 83036; 83735; 83930; 84100; 84443; 84484; 85025; 87086; 87641; 93005; 97116; 97162; 97166; 97530; 97535; 97802; 97803; 99285; 99406; J7030; A4216; J0610; J0744

== ENCOUNTER → 2018-01-02 08:59 | Outpatient (CLI) | payer OTHER, MEDICAID, SELFPAY ==
[2018-01-02 10:29] LABS: Anion Gap 10 (5-15); BUN 12 mg/dL (7-18); BUN/Creat Ratio 16.2 RATIO (10-20); Chloride 99 mmol/L (98-107); Creatinine, Serum 0.74 mg/dL (0.55-1.02); EST Glomerular Filtration Rate 84 mL/min (>60); Est Glom Filt Rate - Afr Amer 102 mL/min (>60); Glucose 296 mg/dL (74-106); Magnesium 1.4 mg/dL (1.6-2.6); Potassium 3.2 mmol/L (3.5-5.1); Sodium Level 137 mmol/L (136-145)
== END ==
PROVIDERS: Family Provider Internal Medicine; PCP Internal Medicine; Visit Provider Internal Medicine
DX: E11.9 Type 2 diabetes mellitus without complications (principal); E87.6 Hypokalemia
CPT/HCPCS: 36415; 80048; 83735

== ENCOUNTER 2018-01-06 21:35 | Emergency (ER) | payer OTHER, MEDICAID, SELFPAY ==
[2018-01-06 21:35] VITALS: BP 99/56; PULSE 65; RESP 16; TEMP 36.2; O2SAT 98; BMI 27.3
[2018-01-06 21:46] LABS: Bedside Glucose > 500 mg/dL (70-110)
[2018-01-06] MEDS: 0.9% Normal Saline 1,000 ML 1000 ML IV (22:54)
[2018-01-06 23:02] LABS: Absolute Lymphocyte Count 1.94 X10^3/ul (0.83-4.51); Absolute Neutrophil Count 10.8 X10^3/uL (2.0-7.7); Basophil# 0.02 X10^3/uL; Basophil% 0.1 % (0-1); Eosinophil# 0.04 X10^3/uL; Eosinophils% 0.3 % (0-5); Hematocrit 36.6 % (37-47); Lymphocyte # 1.94 X10^3/ul (4.0); Lymphocyte % 13.8 % (19-41); Mean Corp Hgb Conc 32.8 g/gl (32-36); Mean Corpuscular Hgb 29.9 pg (27.0-32.0); Mean Corpuscular Volume 91.3 fL (81-99); Mean Platelet Vol. 9.9 fl (6.2-12.0); Monocyte% 7.8 % (0-10); Neutrophil # 10.81 X10^3/uL (2.7-7.7); Neutrophil % 77.1 % (47-70); Platelet Count 292 K/mm3 (150-450); RBC Distribution Width CV 14.2 % (11.6-14.6); RBC Distribution Width SD 47.1 fl (35.1-43.9); Red Blood Count 4.01 M/mm3 (4.2-5.4)
[2018-01-06 23:03] LABS: POSITIVE COUNT NO; POSITIVE DIFFERENTIAL NO; POSITIVE MORPHOLOGY NO
--- NOTE | 2018-01-06 23:24 | NURSING ---
lab called with glucose result of 546
[2018-01-06 23:25] LABS: ALB/GLOB Ratio 0.5 RATIO (0.9-2.4); AST(SGOT) 13 U/L (15-37); Alanine Aminotransfer ALT/SGPT 29 U/L (13-56); Albumin, Serum 2.6 g/dL (3.2-5.0); Alkaline Phosphatase 97 U/L (45-117); Anion Gap 9 (5-15); BUN 25 mg/dL (7-18); BUN/Creat Ratio 24.5 RATIO (10-20); Calcium,Total 9.5 mg/dL (8.5-10.1); Chloride 93 mmol/L (98-107); Creatinine, Serum 1.02 mg/dL (0.55-1.02); EST Glomerular Filtration Rate 58 mL/min (>60); Est Glom Filt Rate - Afr Amer 70 mL/min (>60); Estimated Creatinine Clearance 56.95 ml/min; Globulin 5.5 g/dL (2.2-4.2); Glucose 546 mg/dL (74-106); Potassium 4.4 mmol/L (3.5-5.1); Protein, Total 8.1 g/dL (6.4-8.2); Sodium Level 130 mmol/L (136-145)
[2018-01-06 23:44] LABS: Mucous, Urine 0 SEEN /hpf (<or=2+); Red Blood Cells-Urine 0 SEEN /hpf (0-5)
--- NOTE | 2018-01-06 23:46 | ED.DCSUM_ITS ---
- ER Visit Summary Date of Service: 01/06/18 Chief Complaint: [elevated BGT] History of Present Illness: The patient is a 62 F [that presents with elevated blood sugar. She was seen recently at this hospital for similar symptoms. She is a type II diabetic and only takes oral medication. She does describe compliance with this medication. She denies any nausea, vomiting, or abdominal pain. She is currently out of test strips at home so has not been checking her blood sugar. She denies any other symptoms or complaints. She overall appears well and in no acute distress.] Physical Examination: [General: The patient appears well and in no apparent distress. Patient is resting comfortably on cart. Skin: Warm, dry, no pallor noted. No rash. Head: Normocephalic, atraumatic Neck: Supple, nontender. ENT: Moist mucus membranes, pharynx within normal limits. Cardiovascular: Regular Rate and Rhythm, no gallups or rubs Respiratory: Patient is in no distress, no accessory muscle use, lungs are clear to auscultation, no wheezing, rales or rhonchi Musculoskeletal: normal ROM, no deformity, no tenderness, no swelling. 2+ radial and DP pulses symmetric. GI: No tenderness to palpation, no masses appreciated. No rebound, guarding, or rigidity noted. Neurological: A&O, normal strength and sensation. Psychiatric: Cooperative] Test Results: [White blood cell count was 14. Sodium was 130. Glucose was elevated at 546. Serum ketones were negative. ] Emergency Department Course and Treatment: [Patient was given IV fluids. She will be given 12 units of IV insulin and her blood sugar will be checked following this in one hour. Repeat BGT 408. On reevaluation at 0100 she is resting comfortably. Urinalysis was consistent with UTI and she will be treated with a course of Keflex. I instructed her to call her primary provider first thing this morning to discuss her current diabetic medications. Patient and family understand and are agreeable with this plan of care. Patient was discharged home in stable and improved condition.] Treatment Plan: [see above] Disposition: [discharge home] Impression: [Hyperglycemia - improved, UTI] This note was generated with Macheenation software. It may contain incorrect words, spelling, and punctuation that were not noted in review of the chart prior to signing ED Disposition - Plan for ED Patient: Disposition: Home or Assisted Living Chief Complaint: Hyperglycemia Diagnosis: Hyperglycemia Instructions: ED Hyperglycemia Diabetic, ED UTI Cystitis Female Prescriptions: Cephalexin [Keflex] 500 mg PO BID #19 cap Referrals: Obed Scott MD [Primary Care Provider] -
[2018-01-06 23:50] LABS: Color, Urine Yellow (Yellow); Glucose, Dipstick 1000 mg/dl (Normal); Ketone-Dipstick Negative (Negative); Leukocyte Esterase-Dipstick 500 /ul (Negative); Nitrite-Dipstick Negative (Negative); Occult Blood-Urine 250 /ul (Negative); Protein-Dipstick 30 mg/dl (Negative); Urine Bilirubin Dipstick Negative (Negative); Urine Clarity Sl. Cloudy (Clear); Urine Urobilinogen Normal (Normal)
[2018-01-06 23:56] LABS: Bedside Glucose 470 mg/dL (70-110)
[2018-01-06 23:59] LABS: Bacteria 1+ /hpf (None Seen); Squamous Epithelial Cells - UA 5-10 SEEN /hpf (5-10); White Blood Cells 25-50 SEEN /hpf (0-5)
[2018-01-07] MEDS: Cephalexin 250 MG Capsule 500 MG PO (00:34)
[2018-01-07 01:05] LABS: Bedside Glucose 408 mg/dL (70-110)
[2018-01-07 01:19] VITALS: BP 100/54; PULSE 76; RESP 16; O2SAT 94
== END 2018-01-07 01:20 | disposition home or self-care (01) ==
PROVIDERS: Emergency Provider Emergency Medicine; Family Provider Internal Medicine; PCP Internal Medicine
DX: E11.65 Type 2 diabetes mellitus with hyperglycemia (principal); N39.0 Urinary tract infection, site not specified; Z86.73 Personal history of transient ischemic attack (TIA), and cerebral infarction without residual deficits; I25.2 Old myocardial infarction; I10 Essential (primary) hypertension; E78.00 Pure hypercholesterolemia, unspecified; Z79.82 Long term (current) use of aspirin; Z79.4 Long term (current) use of insulin; Z79.84 Long term (current) use of oral hypoglycemic drugs; Z79.899 Other long term (current) drug therapy; Z72.0 Tobacco use
CPT/HCPCS: 80053; 81001; 82009; 82962; 85025; 96361; 96374; 99284; J7030; A4216

== ENCOUNTER → 2018-02-26 13:36 | Outpatient (CLI) | payer OTHER, MEDICAID, SELFPAY ==
[2018-02-26 15:59] LABS: Anion Gap 12 (5-15); BUN 24 mg/dL (7-18); BUN/Creat Ratio 25.8 RATIO (10-20); Calcium,Total 9.7 mg/dL (8.5-10.1); Chloride 97 mmol/L (98-107); Creatinine, Serum 0.93 mg/dL (0.55-1.02); EST Glomerular Filtration Rate 64 mL/min (>60); Est Glom Filt Rate - Afr Amer 78 mL/min (>60); Glucose 396 mg/dL (74-106); Potassium 3.8 mmol/L (3.5-5.1); Sodium Level 131 mmol/L (136-145)
== END ==
PROVIDERS: Family Provider Internal Medicine; PCP Internal Medicine; Visit Provider Internal Medicine
DX: E11.65 Type 2 diabetes mellitus with hyperglycemia (principal)
CPT/HCPCS: 36415; 80048

== ENCOUNTER 2018-03-23 16:00 | Outpatient (RCR) | payer OTHER, MEDICAID, SELFPAY | END 2018-04-08 23:59 | LOC: DC 16:00 | PROVIDERS: Family Provider Internal Medicine; PCP Internal Medicine; Visit Provider Internal Medicine | DX: E11.9 Type 2 diabetes mellitus without complications (principal); Z71.3 Dietary counseling and surveillance | CPT/HCPCS: 97802; G0108 ==

== ENCOUNTER 2018-04-15 09:57 | Outpatient (RCR) | payer OTHER, MEDICAID, SELFPAY | END 2018-05-08 23:59 | LOC: DC 09:57 | PROVIDERS: Family Provider Internal Medicine; PCP Internal Medicine; Visit Provider Internal Medicine | DX: E11.9 Type 2 diabetes mellitus without complications (principal); Z71.3 Dietary counseling and surveillance ==

== ENCOUNTER → 2018-10-14 | Outpatient (CLI) | payer OTHER, MEDICAID, SELFPAY ==
[2018-10-13 15:39] VITALS: BMI 30.4
[2018-10-14 09:10] LABS: Mucous, Urine 0 SEEN /hpf (<or=2+)
[2018-10-14 12:43] LABS: Color, Urine Yellow (Yellow); Glucose, Dipstick 100 mg/dl (Normal); Ketone-Dipstick Negative (Negative); Leukocyte Esterase-Dipstick 500 /ul (Negative); Nitrite-Dipstick Positive (Negative); Occult Blood-Urine 25 /ul (Negative); Protein-Dipstick 30 mg/dl (Negative); Specific Gravity, Urine 1.015 (1.002-1.030); Urine Bilirubin Dipstick Negative (Negative); Urine Clarity Sl. Cloudy (Clear); Urine Urobilinogen Normal (Normal)
[2018-10-14 12:44] LABS: Squamous Epithelial Cells - UA 0-5 SEEN /hpf (5-10)
[2018-10-14 12:45] LABS: Bacteria 1+ /hpf (None Seen); Red Blood Cells-Urine 0-5 SEEN /hpf (0-5); White Blood Cells 25-50 SEEN /hpf (0-5)
== END | disposition home or self-care (01) ==
LOC: BIMLAB 09:08
PROVIDERS: Family Provider Internal Medicine; PCP Internal Medicine; Visit Provider Nurse Practitioner Family
DX: N30.00 Acute cystitis without hematuria (principal)
CPT/HCPCS: 81001; 87086; 87088; 87186

== ENCOUNTER → 2018-11-10 | Outpatient (CLI) | payer OTHER, MEDICAID, SELFPAY ==
[2018-11-10 15:35] VITALS: BMI 30.4
--- NOTE | 2018-11-10 15:40 | RAD_ITS ---
STUDY: X-RAY - RIGHT KNEE REASON FOR EXAM: Female, 63 years old. Chronic knee pain. TECHNIQUE: 4 view(s) of the knee. COMPARISON: None. FINDINGS: There is generalized osteopenia. Normal visualized distal femur. Normal visualized proximal tibia and fibula. Normal proximal tibiofibular articulation. There is moderate arthrosis of the medial, lateral and patellofemoral compartments with loss of articular cartilage, subchondral cyst formation and osteophyte formation. The soft tissue structures are unremarkable. RAD/Knee 4 or More Views IMPRESSION: Osteopenia with tricompartmental arthrosis as described. Electronically Signed: Judd Sher MD at 17:46 EDT , Service support ,
--- NOTE | 2018-11-10 15:40 | RAD_ITS ---
STUDY: X-RAY - LEFT KNEE REASON FOR EXAM: Female, 63 years old. Chronic knee pain. TECHNIQUE: 4 view(s) of the knee. COMPARISON: None. FINDINGS: There is generalized osteopenia. Normal visualized distal femur. Normal visualized proximal tibia and fibula. Normal proximal tibiofibular articulation. There is moderate arthrosis of the medial, lateral and patellofemoral compartments with loss of articular cartilage, subchondral sclerosis and osteophyte formation. The soft tissue structures are unremarkable. RAD/Knee 4 or More Views IMPRESSION: Osteopenia with moderate tricompartmental arthrosis as described. Electronically Signed: Judd Sher MD at 17:43 EDT , Service support ,
== END | disposition home or self-care (01) ==
LOC: HPRAD 15:40
PROVIDERS: Family Provider Internal Medicine; PCP Internal Medicine; Referring Provider Orthopaedic Surgery; Visit Provider Orthopaedic Surgery
DX: M25.561 Pain in right knee (principal); M25.562 Pain in left knee
CPT/HCPCS: 73564

== ENCOUNTER 2018-12-07 12:00 | Outpatient (RCR) | payer OTHER, MEDICAID, SELFPAY ==
[2018-11-19 11:34] VITALS: BMI 30.4
== END 2018-12-07 19:00 | disposition home or self-care (01) ==
LOC: PT 12:00
PROVIDERS: Family Provider Internal Medicine; PCP Internal Medicine; Referring Provider Orthopaedic Surgery; Visit Provider Orthopaedic Surgery
DX: M17.0 Bilateral primary osteoarthritis of knee (principal)

== ENCOUNTER 2019-03-02 08:04 | Inpatient (IN) | payer OTHER, MEDICAID, SELFPAY ==
[2019-01-01 12:04] VITALS: BMI 30.4
[2019-03-02] VITALS (17 sets, daily range): BP systolic 119–158; BP diastolic 75–95; PULSE 71–93; RESP 12–18; TEMP 36.7–37; O2SAT 95–97; BMI 30.1; BMI 29.5
--- NOTE | 2019-03-02 08:18 | CT_ITS ---
STUDY: CT BRAIN WITHOUT CONTRAST REASON FOR EXAM: Female, 63 years old. Stroke like symptoms. RADIATION DOSAGE (If Supplied By Facility): CTDIvol = ( 44.99 ) mGy, DLP = ( 796.11 ) mGycm TECHNIQUE: Transaxial CT imaging of the brain was performed without administration of intravenous contrast material. Individualized dose optimization techniques were used for this CT. COMPARISON: Comparison is made with prior study dated December 27, 2017. FINDINGS: Once again, several small subcutaneous nodular densities are seen overlying the right occipital bone most likely representing subcutaneous sebaceous cysts. Normal calvarium. Normal size ventricles and extra-axial spaces for the patient's age. Stable encephalomalacia in the posterior medial aspect of the left occipital lobe. Normal basal ganglia and thalami. Normal brainstem. Stable encephalomalacia in the posterior left cerebellar hemisphere. There is no intracranial hemorrhage. There are no findings of an acute ischemic infarction. Atherosclerotic calcification of the vertebral arteries. Normal visualized paranasal sinuses. CT/Brain/Head without Contrast IMPRESSION: Chronic involutional changes of the brain. No acute abnormality is seen. N.B. : The above information has been verbally conveyed by Steve Holloway to Arlen Barrientos on 03/02/2019 08:35:47 (ET). Electronically Signed: Steve Holloway, at 8:36 EDT , Service support ,
--- NOTE | 2019-03-02 08:18 | EKG12_ITS ---
Test Reason : CVA Blood Pressure : / mmHG Vent. Rate : 091 BPM Atrial Rate : 091 BPM P-R Int : 174 ms QRS Dur : 116 ms QT Int : 404 ms P-R-T Axes : 070 071 079 degrees QTc Int : 496 ms Normal sinus rhythm Nonspecific T wave abnormality Prolonged QT Abnormal ECG Confirmed by TAZ ROBLEDO ([id number]), book editor JC MOYER ([id number]) on 03/09/2019 1:25:44 PM Referred By: Ramana Becker Confirmed By:TAZ ROBLEDO
--- NOTE | 2019-03-02 08:18 | RAD_ITS ---
STUDY: X-RAY CHEST REASON FOR EXAM: Female, 63 years old. Right-sided weakness. TECHNIQUE: Single AP portable view of the chest. COMPARISON: Comparison is made with prior study dated December 26, 2017. FINDINGS: EKG electrodes are seen. The lungs are clear and expanded. There is no demonstrated pleural abnormality. Sternal cerclage wires and vascular clips are present from a prior sternotomy and coronary artery bypass graft procedure (CABG). Normal mediastinum and ventura. Normal visualized pulmonary arteries. Normal visualized aortic arch and descending thoracic aorta. Normal visualized thoracic spine. Normal visualized ribs, clavicles, and shoulders. There is no demonstrated abnormality of the visualized soft tissue structures of the upper abdomen. RAD/Chest 1 View IMPRESSION: No acute abnormality is seen. Electronically Signed: Steve Holloway, at 9:16 EDT , Service support ,
[2019-03-02 08:20] LABS: Bedside Glucose 351 mg/dL (70-110)
--- NOTE | 2019-03-02 08:21 | ED.DCSUM_ITS ---
History of Present Illness Chief Complaint: Neuro S/Sx Informant: Patient, Family Onset: Today Context: - - at waking up Timing: Continuous Narrative: Is a 63-year-old female with history of stroke, coronary artery disease, diabetes and DKA presenting from home with difficulty speaking and right arm weakness. Patient lives with her son. When she woke up this morning she told her son that her right hand felt more weak and she was having a hard time speaking. Patient's son saw her at 1030 last night before he went to bed and states that she was normal at that time. Patient denies any other complaints. She notes she does have a bad wrist on her right. Patient states she felt well yesterday. She denies any associated chest pain, difficulty breathing or change in vision. She denies any other complaints at this time. Chart review shows that patient was on Eliquis at one point. Is not clear if she is currently on it. Past Medical History - Allergies and Home Meds Allergies/Adverse Reactions: Allergies No Known Allergies Allergy (Verified 03/02/19 08:42) Surgical History: cholecystectomy, - - History of cardiac surgery for congenital heart disease. Smoking Status: Former smoker - Family History Maternal Family History: Family History (Last Reviewed 12/22/18 @ 12:35 by Chloe Whatley) Mother Ovarian cancer Father Hypertension COPD (chronic obstructive pulmonary disease) Heart disease Sister Multiple sclerosis Cancer Sister Brain tumor Heart disease Brother A-fib Family History: Reports: No pertinent history Review of Systems All systems negative except as indicated Neurological: Reports: Weakness - right arm/hand, - - speach difficulty Physical Exam Vital Signs/Narrative: Vital Signs Temp Pulse Resp BP Pulse Ox 03/02/19 08:05 98.6 F 93 17 147/95 H 95 Inital Vital Signs reviewed: Yes General: Well nourished, Well developed, No Acute Distress Head: Normocephalic, Atraumatic Eyes: Perrl, EOMI ENT: Moist mucous membranes, No rhinorrhea Neck: Supple, Nontender Cardiovascular: Regular rate, Regular rhythm, No murmurs Respiratory: No distress, CTA bilaterally, Chest nontender Abdomen: Soft, Nontender, Nondistended, Normal bowel sounds Back: Nontender, Normal Inspection Extremities: Nontender, No edema Skin: Normal color, No rash Neurological: Alert, Oriented x3, Cranial nerves II-XII grossly intact, Normal Strength, Normal Sensation, - - NIH 1?mild to moderate aphasia; No appreciated weakness of the extremities Psychological: Normal affect, Normal Mood Diagnostic/Tx/Re-eval Chest X-Ray - ED: 1 View, Read by ED Physician, Read by Radiologist, No Acute Disease Laboratory Results - last 24 hr 03/02/19 03/02/19 03/02/19 08:12 08:15 08:15 WBC 10.1 RBC 4.70 Hgb 15.0 Hct 43.0 MCV 91.5 MCH 31.9 MCHC 34.9 RDW Std Deviation 41.9 RDW Coeff of Zakiya 12.8 Plt Count 253 MPV 10.6 Immature Gran % (Auto) 1.100 H Neut % (Auto) 67.7 Lymph % (Auto) 21.9 Saunders % (Auto) 8.2 Eos % (Auto) 0.6 Baso % (Auto) 0.5 Absolute Neuts (auto) 6.8 Absolute Lymphs (auto) 2.21 Nucleated RBC % 0 PT 13.0 INR 1.0 APTT 27.7 Sodium Potassium Chloride Carbon Dioxide Anion Gap BUN Creatinine Estim Creat Clear Calc Est GFR (MDRD) Af Amer Est GFR (MDRD) Non-Af BUN/Creatinine Ratio Glucose Calcium Troponin I Urine Color Urine Clarity Urine pH Ur Specific [place] Urine Protein Urine Glucose (UA) Urine Ketones Urine Occult Blood Urine Nitrite Urine Bilirubin Urine Urobilinogen Ur Leukocyte Esterase Urine RBC Urine WBC Ur Squamous Epith Cells Urine Bacteria Urine Mucus Acetone Level POC Glucose 351 H 03/02/19 03/02/19 03/02/19 08:15 08:15 09:18 WBC RBC Hgb Hct MCV MCH MCHC RDW Std Deviation RDW Coeff of Zakiya Plt Count MPV Immature Gran % (Auto) Neut % (Auto) Lymph % (Auto) Saunders % (Auto) Eos % (Auto) Baso % (Auto) Absolute Neuts (auto) Absolute Lymphs (auto) Nucleated RBC % PT INR APTT Sodium 135 L Potassium 3.7 Chloride 101 Carbon Dioxide 26.0 Anion Gap 8 BUN 19 H Creatinine 1.00 Estim Creat Clear Calc 57.33 Est GFR (MDRD) Af Amer 72 Est GFR (MDRD) Non-Af 59 L BUN/Creatinine Ratio 19.0 Glucose 362 H Calcium 9.4 Troponin I < 0.015 Urine Color Yellow Urine Clarity Cloudy Urine pH 5.0 Ur Specific [place] 1.015 Urine Protein 30 H Urine Glucose (UA) 1000 H Urine Ketones Negative Urine Occult Blood 25 H Urine Nitrite Positive H Urine Bilirubin Negative Urine Urobilinogen Normal Ur Leukocyte Esterase 500 H Urine RBC 0-5 SEEN Urine WBC 25-50 SEEN Ur Squamous Epith Cells 0-5 SEEN Urine Bacteria 2+ Urine Mucus 0 SEEN Acetone Level NEGATIVE POC Glucose Diagnostic Data Brain CT 03/02/19 08:18 IMPRESSION: Chronic involutional changes of the brain. No acute abnormality is seen. N.B. : The above information has been verbally conveyed by Steve Holloway to Arlen Barrientos on 03/02/2019 08:35:47 (ET). Electronically Signed: Steve Holloway, at 8:36 EDT , Service support , ADDENDUM: 03/02/19 0843 IMPRESSION: Chronic involutional changes of the brain. No acute abnormality is seen. N.B. : The above information has been verbally conveyed by Steve Holloway to Arlen Barrientos on 03/02/2019 08:35:47 (ET). Electronically Signed: Steve Holloway, at 8:36 EDT , Service support , Chest X-Ray 03/02/19 08:18 IMPRESSION: No acute abnormality is seen. Electronically Signed: Steve Holloway, at 9:16 EDT , Service support , - Rhythm Strip Rhythm Strip: Sinus Rhythm Rate: 91 Ectopy: None - EKG Initial EKG Interpretation: Sinus Rhythm, - - Sinus rate of 91 DE interval 174 QRS 116 QT/QTc four 4/496 Normal axis Nonspecific T wave changes - Medical Decision Making Evaluated with difficulty speaking. Knows her symptoms when she woke up. Last known well was approximately 10 PM. Patient is not a TPA candidate. Her NIH is 1. She states that she feels that she is weak in her right arm but it cannot quantify this weakness on exam. Patient is mildly hyperglycemic but does not have an elevated anion gap or acetone. She does not meet criteria for HH NK or DKA. She is given IV fluids. CT of the brain shows an old infarct but no acute process. Patient is given aspirin in the emergency room. She is found to have urinary tract infection on urinalysis. Urine culture sent. She is given IV Rocephin. It is possible she could have an acute stroke versus exacerbation of old neurologic symptoms from her urinary tract infection. Regardless patient will be admitted for further evaluation. Patient is agreeable to this plan. She stable for the general medical floor at time of disposition. ED Disposition - Plan for ED Patient: Disposition: [facility] Diagnosis: Dysphasia, UTI (urinary tract infection), Hyperglycemia
[2019-03-02] MEDS: 0.9% Normal Saline 1,000 ML 100 ML IV (08:35)
[2019-03-02 08:45] LABS: Partial Thromboplast Time 27.7 Seconds (24.1-36.2)
[2019-03-02 08:47] LABS: Absolute Lymphocyte Count 2.21 X10^3/uL (0.83-4.51); Absolute Neutrophil Count 6.8 X10^3/uL (2.0-7.7); Basophil# 0.05 X10^3/uL; Basophil% 0.5 % (0-1); Eosinophil# 0.06 X10^3/uL; Eosinophils% 0.6 % (0-5); Lymphocyte # 2.21 X10^3/ul (4.0); Lymphocyte % 21.9 % (19-41); Mean Corp Hgb Conc 34.9 g/dL (32-36); Mean Corpuscular Hgb 31.9 pg (27.0-32.0); Mean Corpuscular Volume 91.5 fL (81-99); Mean Platelet Vol. 10.6 fl (6.2-12.0); Monocyte# 0.83 X10^3/uL; Monocyte% 8.2 % (0-10); NRBC Flagged by Analyzer 0 % (0-5); Neutrophil # 6.84 X10^3/uL (2.7-7.7); Neutrophil % 67.7 % (47-70); Platelet Count 253 K/mm3 (150-450); RBC Distribution Width CV 12.8 % (11.6-14.6); RBC Distribution Width SD 41.9 fl (35.1-43.9); White Blood Count 10.1 K/mm3 (4.4-11.0)
[2019-03-02 08:59] LABS: Anion Gap 8 (5-15); BUN 19 mg/dL (7-18); Calcium,Total 9.4 mg/dL (8.5-10.1); Chloride 101 mmol/L (98-107); EST Glomerular Filtration Rate 59 mL/min (>60); Est Glom Filt Rate - Afr Amer 72 mL/min (>60); Estimated Creatinine Clearance 57.33 ml/min; Glucose 362 mg/dL (74-106); Potassium 3.7 mmol/L (3.5-5.1); Sodium Level 135 mmol/L (136-145)
[2019-03-02 09:23] LABS: Mucous, Urine 0 SEEN /hpf (<or=2+)
[2019-03-02 09:26] LABS: Color, Urine Yellow (Yellow); Glucose, Dipstick 1000 mg/dl (Normal); Ketone-Dipstick Negative (Negative); Leukocyte Esterase-Dipstick 500 /ul (Negative); Nitrite-Dipstick Positive (Negative); Occult Blood-Urine 25 /ul (Negative); Protein-Dipstick 30 mg/dl (Negative); Specific Gravity, Urine 1.015 (1.002-1.030); Urine Bilirubin Dipstick Negative (Negative); Urine Clarity Cloudy (Clear); Urine Urobilinogen Normal (Normal)
[2019-03-02 09:35] LABS: Bacteria 2+ /hpf (None Seen); Red Blood Cells-Urine 0-5 SEEN /hpf (0-5); Squamous Epithelial Cells - UA 0-5 SEEN /hpf (5-10); White Blood Cells 25-50 SEEN /hpf (0-5)
[2019-03-02] MEDS: Aspirin 325 MG Tablet PO (10:23)
[2019-03-02] MEDS: Ceftriaxone 1 GM/50 ML BAG IV (10:23)
--- NOTE | 2019-03-02 10:54 | MRI_ITS ---
We are attempting to reach an attending provider to discuss findings. An addendum with communication details will be sent when the communication is complete. STUDY: MRI BRAIN WITHOUT CONTRAST REASON FOR EXAM: Female, 63 years old. Slurred speech, right-sided weakness TECHNIQUE: Standardized multiplanar fat and water weighted pulse sequences were obtained. COMPARISON: None. FINDINGS: There is mild cerebral atrophy with widening of the extra-axial spaces and ventricular dilatation. There are a limited number of small white matter hyperintensities, distributed throughout the deep white matter tracts of the cerebral hemispheres, consistent with mild chronic white matter ischemic changes. Encephalomalacia and gliosis of the left hemisphere of the cerebellum in the left occipital lobe consistent with a prior left posterior cerebral artery and cerebral artery infarct. Focal hyperintensity of the cortex of the posterior left parietal lobe which demonstrates restricted diffusion consistent with an acute/subacute infarct. Normal T2* images of the brain without demonstrated susceptibility artifact. There is no demonstrated hemosiderin stain. Normal bilateral basal ganglia. Normal thalami. There is no extra-axial fluid accumulation. Normal flow voids within the major intracranial circulation suggesting patency by spin echo criteria. Normal sella turcica, pituitary gland, infundibular stalk, optic chiasm and hypothalamus. Normal tectal plate and pineal gland. Normal midbrain, alona and medulla. Normal cerebellum. Normal basal cisterns. Normal bilateral temporal bones. Normal bilateral internal auditory canals. No demonstrated orbital abnormality, within the constraints of a routine brain study. Normal visualized paranasal sinuses. Normal calvarium and skull base. Normal visualized soft tissue structures. Normal visualized upper cervical spine. MRI/Brain without Contrast IMPRESSION: 1. Acute/subacute infarct of the cortex of the gyrus of the posterior left parietal lobe. 2. Chronic infarction left hemisphere of the cerebellum in the left occipital lobe. 3. Mild diffuse cerebral atrophy and microangiopathic gliosis from chronic hypertension or metabolic disease. Electronically Signed: Milan Guadalupe MD at 12:38 EDT Tel , Service support ,
--- NOTE | 2019-03-02 10:57 | HP.PCM_ITS ---
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 insulin use: with prison use Diabetes mellitus complication status: with hyperglycemia Qualified Code(s): E11.65 - Type 2 diabetes mellitus with hyperglycemia; Z79.4 - 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 (11) Atherosclerotic heart disease of [place] coronary artery without angina pectoris Status: Chronic Comment: BMS to the LCX w/ Itnegrity 4 x 15 mm 04/06/2011 (12) Ventricular septal defect Status: Chronic (13) Paroxysmal atrial fibrillation Status: Chronic History of Present Illness Date of Admission: 03/02/19 Chief Complaint: Slurred speech The patient is a 63 year old F past medical history significant for previous CVA with residual short-term memory defect, paroxysmal atrial fibrillation tobacco dependence with continuous use of cigarette who was brought to the emergency department by the family with complaints of slurred speech. Patient was apparently in her usual state of health prior to going to bed. However son who lives with patient noticed that patient had slurred speech on the morning of her presentation. There was no report of any numbness or focal weakness. In the emergency department CT of the head obtained did not show any acute bleed or ischemic stroke. Patient was outside the window for TPA since it was not known when she was last well. Given her significant risk factors patient was admitted to monitored bed for further management. Urinalysis obtained was also consistent with UTI patient did receive Rocephin prior to being admitted. Past Medical History Past Medical History (Chronic Problems): Chronic Problems (Last Reviewed 03/02/19 @ 12:33 by Ramana Becker MD) Back pain (Chronic) Bilateral knee pain (Chronic) Depression with anxiety (Chronic) Paroxysmal atrial flutter (Chronic) Hyperlipidemia (Chronic) Essential (primary) hypertension (Chronic) Type 2 diabetes mellitus (Chronic) Atherosclerotic heart disease of [place] coronary artery without angina pectoris (Chronic) BMS to the LCX w/ Itnegrity 4 x 15 mm 04/06/2011 Ventricular septal defect (Chronic) Paroxysmal atrial fibrillation (Chronic) Medical History: Medical History (Last Reviewed 03/02/19 @ 12:33 by Ramana Becker MD) Paroxysmal atrial flutter (Chronic) I48.92 Hyperlipidemia (Chronic) E78.5 Essential (primary) hypertension (Chronic) I10 Type 2 diabetes mellitus (Chronic) E11.9 Atherosclerotic heart disease of [place] coronary artery without angina pectoris (Chronic) I25.10 BMS to the LCX w/ Itnegrity 4 x 15 mm 04/06/2011 Ventricular septal defect (Chronic) Q21.0 Paroxysmal atrial fibrillation (Chronic) I48.0 Arthritis M19.90 Back pain M54.9 Diabetes E11.9 Hx of cardiac murmur Z86.79 Knee pain M25.569 Limb weakness R29.898 Neck pain M54.2 Severe headache R51 Shoulder pain M25.519 Stroke I63.9 DKA (diabetic ketoacidoses) E13.10 Depression F32.9 HTN (hypertension) I10 History of ischemic multifocal multiple vascular territories stroke Z86.73 Obesity E66.9 Status post abdominal surgery, follow-up exam (Inactive) Z09 Allergies No Known Allergies Allergy (Verified 03/02/19 08:42) Home Medications: Ambulatory Orders Medication Instructions Recorded Multivitamins,Therapeutic 1 tab PO DAILY 08/13/13 [Multivitamin] apixaban 5 mg tablet 5 mg PO BID #180 tab 12/15/17 Aspirin [Aspirin EC] 81 mg PO DAILY 12/26/17 lancets 28 gauge See Dose Instructions .ROUTE 01/06/18 .MEDSUPPLY #50 ea sitagliptin 50 mg-metformin ER 1 tab PO DAILY #90 tab 01/27/18 1,000 mg tablet,extended release 24h mp fluticasone propionate 50 2 spray INTRANASAL DAILY #15.8 g 03/18/18 mcg/actuation nasal spray,suspension sodium chloride 0.65 % nasal spray 2 spray INTRANASAL Q1-4H PRN #104 03/18/18 aerosol ml metoprolol tartrate 50 mg tablet 50 mg PO BID #60 tab 04/29/18 potassium chloride ER 20 mEq 20 meq PO QDAY #90 tab 05/15/18 tablet,extended release(part/cryst) albuterol sulfate HFA 90 1 puff INHALATION Q6H PRN #8.5 g 07/21/18 mcg/actuation aerosol inhaler losartan 25 mg tablet 12.5 mg PO DAILY #90 tab 07/21/18 ibuprofen 800 mg tablet 800 mg PO TID-QID PRN 09/04/18 omeprazole 20 mg capsule,delayed 20 mg PO QDAY #90 cap 10/06/18 release atorvastatin 20 mg tablet 20 mg PO QHS #90 tab 11/05/18 blood sugar diagnostic strips See Dose Instructions .ROUTE 11/05/18 .MEDSUPPLY #50 ea cetirizine 10 mg tablet 10 mg PO DAILY #30 tab 11/10/18 pen needle, diabetic 32 gauge x See Dose Instructions .ROUTE 11/11/18 .MEDSUPPLY #200 ea amoxicillin 875 mg-potassium 1 tab PO BID #22 tab 01/01/19 clavulanate 125 mg tablet aripiprazole 10 mg tablet 10 mg PO DAILY #90 tab 01/01/19 flash glucose scanning reader See Dose Instructions .ROUTE 01/01/19 .MEDSUPPLY #2 ea flash glucose sensor kit See Dose Instructions .ROUTE 01/01/19 .MEDSUPPLY #1 ea Meloxicam 0.5%,Gabapentin 6%, SUBDERMAL 01/05/19 Lidocaine 2%, Prilocaine 2% cyclobenzaprine 10 mg tablet 5 mg PO TID PRN PRN #30 tab 02/02/19 Duloxetine HCl 60 mg PO DAILY 03/02/19 Glipizide [Glipizide ER] See Rx Instructions PO DAILY 03/02/19 Solifenacin Succinate [Vesicare] 5 mg PO DAILY 03/02/19 insulin glargine (U-100) 100 65 unit SC DAILY #15 ml 03/02/19 unit/mL (3 mL) subcutaneous pen Surgical History: Surgical History (Last Reviewed 03/02/19 @ 12:33 by Ramana Becker MD) History of coronary artery stent placement (Resolved) Onset Date: 04/06/11 Z95.5 BMS to the LCX w/ Itnegrity 4 x 15 mm 04/06/2011 History of open heart surgery Z98.890 Hx of section Z98.891 History of hysterectomy Z90.710 History of left heart catheterization Onset Date: 04/03/11 Z98.890 Hx of cholecystectomy Z90.49 Surgical History: cholecystectomy, - - History of cardiac surgery for congenital heart disease. Psychiatric History: No pertinent psych hx [employer] History: No pertinent [employer] history Smoking Status: Former smoker Tobacco Use: Cigarettes - *Family History Maternal Family History: Family History (Last Reviewed 03/02/19 @ 12:33 by Ramana Becker MD) Mother Ovarian cancer Father Hypertension COPD (chronic obstructive pulmonary disease) Heart disease Sister Multiple sclerosis Cancer Sister Brain tumor Heart disease Brother A-fib History Items: No pertinent history Review of Systems Constitutional: Denies: Anorexia, Chills, Fever, Night Sweats, Weight Change HEENT: Denies: Head Aches, Sinus Congestion, Sinus Drainage Cardiovascular: Denies: Chest Pain, Orthopnea, Palpitations, Paroxysmal Noc. Dyspnea Respiratory: Denies: Cough, Shortness of breath at rest, Shortness of breath upon exertion, Sputum production Gastrointestinal: Denies: Abdominal Pain, Hematemesis, Hematochezia, Nausea, Melena, Vomiting Genitourinary: Denies: Dysuria, Frequency, Hematuria, Urgency Musculoskeletal: Denies: Joint Pain, Joint Tenderness Skin: Denies: Rash Neurological: Reports: Slurred speech. Denies: Focal weakness, Numbness Psychiatric: Denies: Homicidal Ideations, Suicidal Ideations Hematologic/ Lymphatic: Denies: Easy Bruising, Easy Bleeding VTE Information - Inpt Only VTE Present on Admission: No VTE Mechan Device Prophylaxis: None VTE Pharm Prophylaxis ordered?: Yes Patient Problems: Active and Suspected Problems (Last Reviewed 03/02/19 @ 12:33 by Ramana Becker MD) Dysphasia (Acute) UTI (urinary tract infection) (Acute) Hyperglycemia (Acute) Objective: GENERAL: cooperative HEENT: Atraumatic; moist oral mucosa EYES; Anicteric, Normal Conjunctiva NECK; supple, normal thyroid, RESPIRATORY: Diminished to auscultation CARDIOVASCULAR: Regular S1 S2, GI: soft, non-tender, normoactive bowel sounds, : No Renal angle tenderness; EXTREMITIES: No edema, no clubbing, no cyanosis. MUSCULOSKELETAL: No Joint Tenderness; no muscle waisting NEURO: Awake; no lateralizing signs. However has some slurred speech SKIN: No Rash PSYCH; Normal affect - Physical Exam Vital Signs Temp Pulse Resp BP Pulse Ox 98.6 F 81 16 158/85 H 97 03/02/19 08:38 03/02/19 10:17 03/02/19 10:17 03/02/19 10:17 03/02/19 10:17 Oxygen Flow Rate (L/min) 2 Oxygen Delivery Method Nasal Cannula Weight: 89.811 kg Body Mass Index (BMI) 30.1 Finger Stick Blood Glucose 351 Laboratory Tests Past 24 Hrs 03/02/19 03/02/19 03/02/19 08:15 08:15 08:15 WBC 10.1 RBC 4.70 Hgb 15.0 Hct 43.0 MCV 91.5 MCH 31.9 MCHC 34.9 RDW Std Deviation 41.9 RDW Coeff of Zakiya 12.8 Plt Count 253 MPV 10.6 Immature Gran % (Auto) 1.100 H Neut % (Auto) 67.7 Lymph % (Auto) 21.9 Cass % (Auto) 8.2 Eos % (Auto) 0.6 Baso % (Auto) 0.5 Absolute Neuts (auto) 6.8 Absolute Lymphs (auto) 2.21 Nucleated RBC % 0 PT 13.0 INR 1.0 APTT 27.7 Sodium 135 L Potassium 3.7 Chloride 101 Carbon Dioxide 26.0 Anion Gap 8 BUN 19 H Creatinine 1.00 Estim Creat Clear Calc 57.33 Est GFR (MDRD) Af Amer 72 Est GFR (MDRD) Non-Af 59 L BUN/Creatinine Ratio 19.0 Glucose 362 H Calcium 9.4 Troponin I < 0.015 Urine Color Urine Clarity Urine pH Ur Specific [place] Urine Protein Urine Glucose (UA) Urine Ketones Urine Occult Blood Urine Nitrite Urine Bilirubin Urine Urobilinogen Ur Leukocyte Esterase Urine RBC Urine WBC Ur Squamous Epith Cells Urine Bacteria Urine Mucus Acetone Level 03/02/19 03/02/19 08:15 09:18 WBC RBC Hgb Hct MCV MCH MCHC RDW Std Deviation RDW Coeff of Zakiya Plt Count MPV Immature Gran % (Auto) Neut % (Auto) Lymph % (Auto) Cass % (Auto) Eos % (Auto) Baso % (Auto) Absolute Neuts (auto) Absolute Lymphs (auto) Nucleated RBC % PT INR APTT Sodium Potassium Chloride Carbon Dioxide Anion Gap BUN Creatinine Estim Creat Clear Calc Est GFR (MDRD) Af Amer Est GFR (MDRD) Non-Af BUN/Creatinine Ratio Glucose Calcium Troponin I Urine Color Yellow Urine Clarity Cloudy Urine pH 5.0 Ur Specific [place] 1.015 Urine Protein 30 H Urine Glucose (UA) 1000 H Urine Ketones Negative Urine Occult Blood 25 H Urine Nitrite Positive H Urine Bilirubin Negative Urine Urobilinogen Normal Ur Leukocyte Esterase 500 H Urine RBC 0-5 SEEN Urine WBC 25-50 SEEN Ur Squamous Epith Cells 0-5 SEEN Urine Bacteria 2+ Urine Mucus 0 SEEN Acetone Level NEGATIVE POC Glucose 03/02/19 08:12 POC Glucose 351 H Assessment/Plan All Active Problems (Last Reviewed 03/02/19 @ 12:33 by Ramana Becker MD) Dysphasia (Acute) UTI (urinary tract infection) (Acute) Hyperglycemia (Acute) URI (upper respiratory infection) (Resolved) Sinusitis (Resolved) History of coronary artery stent placement (Resolved 04/06/11) DKA (diabetic ketoacidoses) (Resolved) UTI (urinary tract infection) (Resolved) Patient is a 63-year-old lady with history of paroxysmal atrial fibrillation, previous CVA diabetes mellitus type 2 hypertension brought to the emergency department with slurred speech. Patient also had abnormal urinalysis on admission 1. Suspected acute CVA ~Presented with slurred speech. Admitted to monitored bed, placed on every 4 neurochecks, ordered MRI of the head, CTA of the neck 2D echo patient is already on antiplatelet did continue in consultation placed to neurology 2. Acute cystitis ~Cultures sent from the ED patient started on Rocephin with plans to adjust antibiotic therapy based on culture results 3. Essential hypertension ~Patient blood pressure within permissive level did continue with home meds 4. Dyslipidemia ~patient is on statin therapy, continued at home dose 5. Diabetes mellitus type 2 with uncontrolled blood glucose levels ~Patient is on long-acting insulin did continue also added scheduled pre-meal insulin in addition to correction factor sliding scale 6. 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 Paroxysmal atrial fibrillation ?Rate controlled. Patient is on systemic anticoagulation with Eliquis continued 8. Coronary artery disease with previous stent placement ~Is on recommended medications 9. Tobacco dependence counseled on cessation, ~offered nicotine patch for tobacco cravings 10. DVT prophylaxis: Patient on Eliquis, no additional measures warranted Advance planning; did discuss with the patient and family (daughter and son) regarding advanced directives as well as CODE STATUS. Did explain the various scenarios involved ( FULL CODE, DNR CCA, DNR CCA with no intubation, and DNR CC and what each meant) patient elected to remain full code. Order was placed. Time spent on discussion 18 minutes. Code Visit Inpatient E&M: 36606 Init Hosp L3 Procedures: 13782 Advncd Care Plan 30 Min
--- NOTE | 2019-03-02 12:22 | ECHOCS_ITS ---
Reason For Study: TIA/CVA Procedure This was a 2D Doppler, Color Flow transthoracic echocardiogram. The study was technically difficult. Contrast injection was performed. Exam performed portable in patient room. Left Ventricle Moderately dilated left ventricle. Mild segmental systolic dysfunction (see wall motion). The estimated ejection fraction is 40 %. Diastolic function is indeterminate. Posterior-Basal: Hypokinetic. Infero-Basal: Akinetic. Mid-Anterior : Hypokinetic. Mid-Posterior: Akinetic. Mid- Inferior: Hypokinetic. Mid-anteroseptal : Hypokinetic. Anterior [place] : Hypokinetic. Right Ventricle Normal RV size. Normal systolic function. Atria The left atrium is mildly enlarged. Normal right atrium. No doppler evidence for ASD. Bubble contrast study negative for right to left interatrial shunt. Mitral Valve There is mild mitral annular calcification. Mild diffuse mitral valve thickening. Trivial mitral valve insufficiency. Tricuspid Valve Normal tricuspid valve. Trivial tricuspid valve insufficiency. Unable to estimate RV systolic pressure/pulmonary artery pressure due to technically difficult study. Aortic Valve Trisinus/trileaflet aortic valve. Mild focal aortic valve calcification. Pulmonic Valve The pulmonic valve is not well visualized. Great Vessels Normal sized aortic root. Pericardium/Pleural No pericardial effusion. Medication Diluted definity 3ml given slow IV push to enhance endocardial definition. Performed a rapid injection of agitated mix of 9 cc saline and 1cc air to assess for atrial septal defect. MMode/2D Measurements & Calculations LVIDd: 6.5 cm IVSd: 1.1 cm Ao root diam: 3.4 cm LVIDs: 5.5 cm LVPWd: 0.86 cm LA dimension: 4.5 cm FS: 15.6 % LAV(MOD-bp): 57.3 ml LVAd ap4: 46.2 cm2 SV(MOD-sp4): 78.7 ml LAV(MOD-bp) Indexed: 28.4 ml/m2 EDV(MOD-sp4): 213.1 ml LAV(MOD-sp2): 53.2 ml EDV(sp4-el): 220.8 ml LAV(MOD-sp4): 61.4 ml LVAs ap4: 34.1 cm2 ESV(MOD-sp4): 134.4 ml ESV(sp4-el): 138.0 ml EF(MOD-sp4): 36.9 % EF(sp4-el): 37.5 % SV(sp4-el): 82.9 ml LA A4 area: 20.5 cm2 RA A4 area: 9.9 cm2 Time Measurements MV dec time: 0.17 sec Doppler Measurements & Calculations MV E max colin: 58.1 cm/sec Lat Peak E' Colin: 5.5 cm/sec Med Peak E' Colin: 5.3 cm/sec MV A max colin: 106.2 cm/sec E/E' lat: 10.6 E/E' med: 11.0 MV E/A: 0.55 MV V2 max: 140.6 cm/sec MV P1/2t max colin: 92.5 cm/sec Ao V2 max: 146.4 cm/sec MV max P.9 mmHg MV P1/2t: 66.8 msec Ao max P.6 mmHg MV V2 mean: 73.2 cm/sec MV mean P.7 mmHg MV dec slope: 405.4 cm/sec2 MV V2 VTI: 23.6 cm MVA(P1/2t): 3.3 cm2 LV V1 max: 95.5 cm/sec PA V2 max: 79.0 cm/sec LV V1 max P.6 mmHg Interpretation Summary The study was technically difficult. Contrast injection was performed. Moderately dilated left ventricle. Mild segmental systolic dysfunction (see wall motion). The estimated ejection fraction is 40 %. The left atrium is mildly enlarged. There is mild mitral annular calcification. Mild diffuse mitral valve thickening. Trivial mitral valve insufficiency. Trivial tricuspid valve insufficiency. Mild focal aortic valve calcification. Unable to estimate RV systolic pressure/pulmonary artery pressure due to technically difficult study. Diastolic function is indeterminate. Ordering Physician: Ramana Becker Referring Physician: Obed Scott Performed By: Twin Lang RCS
--- NOTE | 2019-03-02 12:27 | CT_ITS ---
STUDY: CTA HEAD AND NECK WITH CONTRAST REASON FOR EXAM: Female, 63 years old. History of CVA. RADIATION DOSAGE (If Supplied By Facility): CTDIvol = ( 26.22 ) mGy, DLP = ( 798.49 ) mGycm TECHNIQUE: CT angiography was performed with a multi-detector CT scanner. Data acquisition was obtained from the skull base through the vertex following intravenous administration of IV Isovue 370 100. MIP images were reconstructed from the axial data set. Post-processing of the angiographic images was performed, with multiplanar reformation and 3D reconstruction. Individualized dose optimization techniques were used for this CT. COMPARISON: No relevant priors. FINDINGS: Normal bilateral petrous carotid arteries. There is calcified plaque formation of the right cavernous carotid artery, without a cross-sectional luminal stenosis. There is calcified plaque formation of the left cavernous carotid artery, without a cross-sectional luminal stenosis. Normal right A1 segments of the anterior cerebral artery. Normal left A1 segments of the anterior cerebral artery. Normal intact anterior communicating artery (ACOM). Normal bilateral A2 segments of the anterior cerebral arteries. Normal right M1 and M2 segments of the middle cerebral arteries, with a normal M1 bifurcation. Normal left M1 and M2 segments of the middle cerebral arteries, with a normal M1 bifurcation. Normal right posterior communicating artery (PCOM). Normal left posterior communicating artery (PCOM). Normal bilateral vertebral arteries. Normal basilar artery with a normal basilar bifurcation. The visualized bilateral superior cerebellar (SCA) arteries are normal. Normal bilateral P1, P2 and visualized P3 segments of the posterior cerebral arteries. There is no demonstrated aneurysm of the [place] of [place]. AORTIC ARCH: There is atherosclerotic calcific plaque formation of the aortic arch and great vessels arising from the aortic arch, without a hemodynamically significant stenosis. There is a normal origin of the brachiocephalic, left common carotid, and left subclavian arteries. RIGHT CAROTID ARTERIES: Normal right common carotid artery (CCA). Normal right common carotid bulb. There is mild atherosclerotic plaque formation of the origin of the right internal carotid artery with less than 50% cross sectional diameter stenosis. Normal visualized cervical portion of the right internal carotid artery. There is moderate atherosclerotic plaque formation of the origin of the right external carotid artery with an estimated stenosis of 50-69% stenosis. LEFT CAROTID ARTERIES: Normal left common carotid artery (CCA). Normal left common carotid bulb. There is mild atherosclerotic plaque formation of the origin of the left internal carotid artery with less than 50% cross sectional diameter stenosis. Normal visualized cervical portion of the left internal carotid artery. Normal origin of the left external carotid artery (ECA). VERTEBRAL ARTERIES: Normal bilateral vertebral arteries. CT/CTA Head AND Neck W/ Contrast IMPRESSION: Calcific plaque at the carotid bifurcations bilaterally with no significant stenosis. Electronically Signed: Steve Holloway, at 14:16 EDT , Service support ,
[2019-03-02 13:00] LABS: Bedside Glucose 297 mg/dL (70-110)
[2019-03-02] MEDS: Insulin Lispro 100 UNIT/ML INSULN.PEN SC ×3 (13:00→22:15)
--- NOTE | 2019-03-02 15:13 | CON.PCM_ITS ---
Problem List (1) CVA (cerebral vascular accident) Status: Acute Reason for Consult Date of Consultation: 03/02/19 Reason for Consultation: Stroke History of Present Illness: The patient is a 63 year old F PMH HTN, HLD, DM, history of stroke in 2010, CAD status post stent, A. fib not on anticoagulation (was on Pradaxa in 2013 and on apixaban later on per documentation but on family/patient review she denies being on any anticoagulation at present), depression/anxiety admitted with right weakness and speech disturbances. History is obtained from the patient, family as well as medical records/documentation. Per son she was normal last night 03/01/2019 but when she woke up this morning she had difficulty in getting her words out and also had weakness in the right side. Per ED documentation NIHSS was 1 on admission. Patient was not a TPA candidate. Per son and daughter at present she is probably not on apixaban for A. fib, and is only on aspirin. Patient and family are a poor historian. Patient lives with her son, denies any frequent falls, does not use cane or walker to ambulate, does drive and does not need any assistance for her ADLs. MRI brain done on admission reported to show acute/subacute left posterior parietal small infarct. CTA head/neck reported to show less than 50% stenosis in the bilateral ICA and no hemodynamically significant stenosis or occlusion. On admission patient was also found to have UTI. [] Past Medical History Past Medical History (Chronic Problems): Chronic Problems (Last Reviewed 03/02/19 @ 12:33 by Ramana Becker MD) Back pain (Chronic) Bilateral knee pain (Chronic) Depression with anxiety (Chronic) Paroxysmal atrial flutter (Chronic) Hyperlipidemia (Chronic) Essential (primary) hypertension (Chronic) Type 2 diabetes mellitus (Chronic) Atherosclerotic heart disease of [place] coronary artery without angina pectoris (Chronic) BMS to the LCX w/ Itnegrity 4 x 15 mm 04/06/2011 Ventricular septal defect (Chronic) Paroxysmal atrial fibrillation (Chronic) Medical History: Medical History (Last Reviewed 03/02/19 @ 12:33 by Ramana Becker MD) Paroxysmal atrial flutter (Chronic) I48.92 Hyperlipidemia (Chronic) E78.5 Essential (primary) hypertension (Chronic) I10 Type 2 diabetes mellitus (Chronic) E11.9 Atherosclerotic heart disease of ruby coronary artery without angina pectoris (Chronic) I25.10 BMS to the LCX w/ Itnegrity 4 x 15 mm 04/06/2011 Ventricular septal defect (Chronic) Q21.0 Paroxysmal atrial fibrillation (Chronic) I48.0 Arthritis M19.90 Back pain M54.9 Diabetes E11.9 Hx of cardiac murmur Z86.79 Knee pain M25.569 Limb weakness R29.898 Neck pain M54.2 Severe headache R51 Shoulder pain M25.519 Stroke I63.9 DKA (diabetic ketoacidoses) E13.10 Depression F32.9 HTN (hypertension) I10 History of ischemic multifocal multiple vascular territories stroke Z86.73 Obesity E66.9 Status post abdominal surgery, follow-up exam (Inactive) Z09 Allergies No Known Allergies Allergy (Verified 03/02/19 08:42) Home Medications: Ambulatory Orders Medication Instructions Recorded Multivitamins,Therapeutic 1 tab PO DAILY 08/13/13 [Multivitamin] apixaban 5 mg tablet 5 mg PO BID #180 tab 12/15/17 Aspirin [Aspirin EC] 81 mg PO DAILY 12/26/17 lancets 28 gauge See Dose Instructions .ROUTE 01/06/18 .MEDSUPPLY #50 ea sitagliptin 50 mg-metformin ER 1 tab PO DAILY #90 tab 01/27/18 1,000 mg tablet,extended release 24h mp fluticasone propionate 50 2 spray INTRANASAL DAILY #15.8 g 03/18/18 mcg/actuation nasal spray,suspension sodium chloride 0.65 % nasal spray 2 spray INTRANASAL Q1-4H PRN #104 03/18/18 aerosol ml metoprolol tartrate 50 mg tablet 50 mg PO BID #60 tab 04/29/18 potassium chloride ER 20 mEq 20 meq PO QDAY #90 tab 05/15/18 tablet,extended release(part/cryst) albuterol sulfate HFA 90 1 puff INHALATION Q6H PRN #8.5 g 07/21/18 mcg/actuation aerosol inhaler losartan 25 mg tablet 12.5 mg PO DAILY #90 tab 07/21/18 ibuprofen 800 mg tablet 800 mg PO TID-QID PRN 09/04/18 omeprazole 20 mg capsule,delayed 20 mg PO QDAY #90 cap 10/06/18 release atorvastatin 20 mg tablet 20 mg PO QHS #90 tab 11/05/18 blood sugar diagnostic strips See Dose Instructions .ROUTE 11/05/18 .MEDSUPPLY #50 ea cetirizine 10 mg tablet 10 mg PO DAILY #30 tab 11/10/18 pen needle, diabetic 32 gauge x See Dose Instructions .ROUTE 11/11/18 .MEDSUPPLY #200 ea aripiprazole 10 mg tablet 10 mg PO DAILY #90 tab 01/01/19 flash glucose scanning reader See Dose Instructions .ROUTE 01/01/19 .MEDSUPPLY #2 ea flash glucose sensor kit See Dose Instructions .ROUTE 01/01/19 .MEDSUPPLY #1 ea Meloxicam 0.5%,Gabapentin 6%, SUBDERMAL 01/05/19 Lidocaine 2%, Prilocaine 2% cyclobenzaprine 10 mg tablet 5 mg PO TID PRN PRN #30 tab 02/02/19 Duloxetine HCl 60 mg PO DAILY 03/02/19 Glipizide [Glipizide ER] See Rx Instructions PO DAILY 03/02/19 Solifenacin Succinate [Vesicare] 5 mg PO DAILY 03/02/19 insulin glargine (U-100) 100 65 unit SC DAILY #15 ml 03/02/19 unit/mL (3 mL) subcutaneous pen Surgical History: Surgical History (Last Reviewed 03/02/19 @ 12:33 by Ramana Becker MD) History of coronary artery stent placement (Resolved) Onset Date: 04/06/11 Z95.5 BMS to the LCX w/ Itnegrity 4 x 15 mm 04/06/2011 History of open heart surgery Z98.890 Hx of section Z98.891 History of hysterectomy Z90.710 History of left heart catheterization Onset Date: 04/03/11 Z98.890 Hx of cholecystectomy Z90.49 Surgical History: cholecystectomy, - - History of cardiac surgery for congenital heart disease. 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 Lives: With Family Smoking Status: Current some day smoker Tobacco Use: Cigarettes - 1 to 2 packs/day Drugs: None - *Family History Maternal Family History: Family History (Last Reviewed 03/02/19 @ 12:33 by Ramana Becker MD) Mother Ovarian cancer Father Hypertension COPD (chronic obstructive pulmonary disease) Heart disease Sister Multiple sclerosis Cancer Sister Brain tumor Heart disease Brother A-fib History Items: No pertinent history Review of Systems Constitutional: Reports: - - Complete ROS negative except as documented in HPI Patient Problems: Active and Suspected Problems (Last Reviewed 03/02/19 @ 12:33 by Ramana Becker MD) Dysphasia (Acute) UTI (urinary tract infection) (Acute) Hyperglycemia (Acute) CVA (cerebral vascular accident) (Acute) - Physical Exam General: Alert HEENT: Normocephalic Neck: Supple Lungs: Normal air movement Cardiovascular: Normal S1, Normal S2 Abdomen: Bowel Sounds Present Extremities: No cyanosis Neurological: - - Conscious, alert, AOA x3, CN II through XII grossly intact, power 5 x 5 left upper and lower extremities, 5 x 5 proximal right upper and lower extremities, mild handgrip weakness of the right upper extremity, no sensory loss, no cerebellar signs, gait deferred, possible mild aphasia, reflexes + B/L B/S/T/K/A, NIHSS 1 at present, mRS 0 at baseline Psych/Mental Status: Normal Affect Vital Signs Temp Pulse Resp BP Pulse Ox 98.5 F 90 18 124/75 H 96 03/02/19 11:45 03/02/19 14:15 03/02/19 11:45 03/02/19 11:45 03/02/19 11:45 Oxygen Flow Rate (L/min) 2 Oxygen Delivery Method Room Air Weight: 88.2 kg Body Mass Index (BMI) 29.5 Finger Stick Blood Glucose 351 Intake and Output for Last 24 Hours 02/28/19 03/01/19 03/02/19 23:59 23:59 23:59 Intake Total 368.33 / 368.33 Balance 368.33 / 368.33 Laboratory Tests Past 24 Hrs 03/02/19 03/02/19 03/02/19 08:15 08:15 08:15 WBC 10.1 RBC 4.70 Hgb 15.0 Hct 43.0 MCV 91.5 MCH 31.9 MCHC 34.9 RDW Std Deviation 41.9 RDW Coeff of [place] 12.8 Plt Count 253 MPV 10.6 Immature Gran % (Auto) 1.100 H Neut % (Auto) 67.7 Lymph % (Auto) 21.9 [place] % (Auto) 8.2 Eos % (Auto) 0.6 Baso % (Auto) 0.5 Absolute Neuts (auto) 6.8 Absolute Lymphs (auto) 2.21 Nucleated RBC % 0 PT 13.0 INR 1.0 APTT 27.7 Sodium 135 L Potassium 3.7 Chloride 101 Carbon Dioxide 26.0 Anion Gap 8 BUN 19 H Creatinine 1.00 Estim Creat Clear Calc 57.33 Est GFR (MDRD) Af Amer 72 Est GFR (MDRD) Non-Af 59 L BUN/Creatinine Ratio 19.0 Glucose 362 H Lactic Acid Calcium 9.4 Troponin I < 0.015 Urine Color Urine Clarity Urine pH Ur Specific [place] Urine Protein Urine Glucose (UA) Urine Ketones Urine Occult Blood Urine Nitrite Urine Bilirubin Urine Urobilinogen Ur Leukocyte Esterase Urine RBC Urine WBC Ur Squamous Epith Cells Urine Bacteria Urine Mucus Acetone Level 03/02/19 03/02/19 03/02/19 08:15 09:18 11:17 WBC RBC Hgb Hct MCV MCH MCHC RDW Std Deviation RDW Coeff of [place] Plt Count MPV Immature Gran % (Auto) Neut % (Auto) Lymph % (Auto) [place] % (Auto) Eos % (Auto) Baso % (Auto) Absolute Neuts (auto) Absolute Lymphs (auto) Nucleated RBC % PT INR APTT Sodium Potassium Chloride Carbon Dioxide Anion Gap BUN Creatinine Estim Creat Clear Calc Est GFR (MDRD) Af Amer Est GFR (MDRD) Non-Af BUN/Creatinine Ratio Glucose Lactic Acid Calcium Troponin I < 0.015 Urine Color Yellow Urine Clarity Cloudy Urine pH 5.0 Ur Specific [place] 1.015 Urine Protein 30 H Urine Glucose (UA) 1000 H Urine Ketones Negative Urine Occult Blood 25 H Urine Nitrite Positive H Urine Bilirubin Negative Urine Urobilinogen Normal Ur Leukocyte Esterase 500 H Urine RBC 0-5 SEEN Urine WBC 25-50 SEEN Ur Squamous Epith Cells 0-5 SEEN Urine Bacteria 2+ Urine Mucus 0 SEEN Acetone Level NEGATIVE 03/02/19 11:17 WBC RBC Hgb Hct MCV MCH MCHC RDW Std Deviation RDW Coeff of [place]aki[place] Plt Count MPV Immature Gran % (Auto) Neut % (Auto) Lymph % (Auto) [place] % (Auto) Eos % (Auto) Baso % (Auto) Absolute Neuts (auto) Absolute Lymphs (auto) Nucleated RBC % PT INR APTT Sodium Potassium Chloride Carbon Dioxide Anion Gap BUN Creatinine Estim Creat Clear Calc Est GFR (MDRD) Af Amer Est GFR (MDRD) Non-Af BUN/Creatinine Ratio Glucose Lactic Acid 1.0 Calcium Troponin I Urine Color Urine Clarity Urine pH Ur Specific [place] Urine Protein Urine Glucose (UA) Urine Ketones Urine Occult Blood Urine Nitrite Urine Bilirubin Urine Urobilinogen Ur Leukocyte Esterase Urine RBC Urine WBC Ur Squamous Epith Cells Urine Bacteria Urine Mucus Acetone Level POC Glucose 03/02/19 03/02/19 12:57 08:12 POC Glucose 297 H 351 H Assessment/Plan All Active Problems (Last Reviewed 03/02/19 @ 12:33 by Ramana Becker MD) Dysphasia (Acute) UTI (urinary tract infection) (Acute) Hyperglycemia (Acute) CVA (cerebral vascular accident) (Acute) URI (upper respiratory infection) (Resolved) Sinusitis (Resolved) History of coronary artery stent placement (Resolved 04/06/11) DKA (diabetic ketoacidoses) (Resolved) UTI (urinary tract infection) (Resolved) The patient is a 63 year old F PMH HTN, HLD, DM, history of stroke in 2010, CAD status post stent, A. fib not on anticoagulation (was on Pradaxa in 2013 and on apixaban later on per documentation but on family/patient review she denies being on any anticoagulation at present), depression/anxiety admitted with right weakness and speech disturbances. History is obtained from the patient, family as well as medical records/documentation. Per son she was normal last night 03/01/2019 but when she woke up this morning she had difficulty in getting her words out and also had weakness in the right side. Per ED documentation NIHSS was 1 on admission. Patient was not a TPA candidate. Per son and daughter at present she is probably not on apixaban for A. fib, and is only on aspirin. Patient and family are a poor historian. Patient lives with her son, denies any frequent falls, does not use cane or walker to ambulate, does drive and does not need any assistance for her ADLs. MRI brain done on admission reported to show acute/subacute left posterior parietal small infarct. CTA head/neck reported to show less than 50% stenosis in the bilateral ICA and no hemodynamically significant stenosis or occlusion. On admission patient was also found to have UTI. Impression Acute/subacute small left posterior parietal infarct Chronic left occipital infarct Plan ?If patient has not been on anticoagulation, given the history of proximal atrial fibrillation and history of embolic left occipital stroke and with this new acute/subacute left posterior parietal infarct and [id number] score of 5, patient should be restarted on apixaban 5 mg p.o. twice daily ?Lipitor 40 mg p.o. nightly ?MRI brain and CT angiogram head/neck reviewed ?TTE pending ?HbA1c/LDL pending ?Stroke risk factors discussed and stroke education provided ?Patient counseled to stop smoking ?Permissive hypertension for at least 24 hours ?Long-term goal blood pressure less than 130/80 mmHg and goal HbA1c less than 7% ?PT/OT/ST ?Fall precautions ?GI/DVT prophylaxis ?Further medical management/UTI management per hospitalist team ?Follow-up with neurology as outpatient in 3 to 4 weeks ?Please call with questions if any ?Thank you for allowing us to participate in patient's care and management This note has been generated using [employer] dictation software. It may contain incorrect words, spellings and punctuation's which were not noted in the review of the note prior to signing. Code Visit Inpatient E&M: 83074 Init Hosp L3
[2019-03-02 16:20] LABS: Hemoglobin A1c 11.1 % (4.2-6.3)
[2019-03-02 16:36] LABS: Bedside Glucose 274 mg/dL (70-110)
[2019-03-02] MEDS: Loratadine 10 MG Tablet PO (16:40)
[2019-03-02] MEDS: Tolterodine Tartrate 2 MG CAP.SA PO (16:40)
[2019-03-02] MEDS: Pantoprazole Sodium 20 MG Tablet PO (16:40)
[2019-03-02] MEDS: DULoxetine Hcl 60 MG Capsule PO (16:41)
[2019-03-02] MEDS: Losartan Potassium 25 MG Tablet 12.5 MG PO (16:41)
[2019-03-02] MEDS: ARIPiprazole 10 MG Tablet PO (16:41)
[2019-03-02] MEDS: Acetaminophen 325 MG Tablet 650 MG PO (20:33)
[2019-03-02] MEDS: APIXABAN 5 MG TABLET PO (22:14)
[2019-03-02] MEDS: Metoprolol Tartrate 50 MG Tablet PO (22:15)
[2019-03-02] MEDS: Atorvastatin Calcium 40 MG Tablet PO (22:15)
[2019-03-02 22:25] LABS: Bedside Glucose 190 mg/dL (70-110)
[2019-03-03] VITALS (13 sets, daily range): BP systolic 115–128; BP diastolic 54–78; PULSE 70–83; RESP 16–18; TEMP 36.4–36.8; O2SAT 96–97; BMI 29.5
[2019-03-03] MEDS: Acetaminophen 325 MG Tablet 650 MG PO (04:54)
[2019-03-03] MEDS: Insulin Lispro 100 UNIT/ML INSULN.PEN SC ×4 (06:42→22:08)
[2019-03-03 06:44] LABS: Basophil# 0.05 X10^3/uL; Basophil% 0.6 % (0-1); Eosinophil# 0.08 X10^3/uL; Eosinophils% 0.9 % (0-5); Hematocrit 39.8 % (37-47); Hemoglobin 13.5 g/dL (12.0-15.0); Lymphocyte % 32.8 % (19-41); Mean Corp Hgb Conc 33.9 g/dL (32-36); Mean Corpuscular Volume 91.5 fL (81-99); Mean Platelet Vol. 11.1 fl (6.2-12.0); Monocyte# 0.73 X10^3/uL; Monocyte% 8.2 % (0-10); NRBC Flagged by Analyzer 0 % (0-5); Neutrophil # 5.03 X10^3/uL (2.7-7.7); Neutrophil % 56.8 % (47-70); Platelet Count 216 K/mm3 (150-450); RBC Distribution Width CV 12.9 % (11.6-14.6); RBC Distribution Width SD 43.2 fl (35.1-43.9); Red Blood Count 4.35 M/mm3 (4.2-5.4); White Blood Count 8.9 K/mm3 (4.4-11.0)
[2019-03-03 06:51] LABS: Bedside Glucose 228 mg/dL (70-110)
[2019-03-03 06:58] LABS: Anion Gap 6 (5-15); BUN 16 mg/dL (7-18); BUN/Creat Ratio 20.1 RATIO (10-20); Calcium,Total 8.6 mg/dL (8.5-10.1); Chloride 103 mmol/L (98-107); Cholesterol 205 mg/dL (200); EST Glomerular Filtration Rate 77 mL/min (>60); Est Glom Filt Rate - Afr Amer 93 mL/min (>60); Estimated Creatinine Clearance 71.67 ml/min; Glucose 205 mg/dL (74-106); High Density Lipoprotein 40 mg/dL; Magnesium 1.5 mg/dL (1.6-2.6); Potassium 3.4 mmol/L (3.5-5.1); Sodium Level 136 mmol/L (136-145); Triglycerides 156 mg/dL; Very Low Density Lipoprotein 31 mg/dL (5-40)
--- NOTE | 2019-03-03 07:32 | PN_ITS ---
Patient Problems: Active and Suspected Problems (Last Reviewed 03/02/19 @ 12:33 by Ramana Becker MD) Dysphasia (Acute) UTI (urinary tract infection) (Acute) Hyperglycemia (Acute) CVA (cerebral vascular accident) (Acute) Subjective: CC acute CVA and UTI Patient is a 63-year-old lady with history of paroxysmal atrial fibrillation, previous CVA diabetes mellitus type 2 hypertension brought to the emergency department with slurred speech. Patient also had abnormal urinalysis on admission. Urine cultures so far positive for gram-negative rods. Imaging studies obtained as part of patient's management demonstrated. Acute/subacute infarct of the cortex of the gyrus of the posterior left parietal lobe.. Chronic infarction left hemisphere of the cerebellum in the left occipital lobe. Consult subsequently placed to neurology. Objective: GENERAL: cooperative HEENT: Atraumatic; moist oral mucosa EYES; Anicteric, Normal Conjunctiva NECK; supple, normal thyroid, RESPIRATORY: Diminished to auscultation CARDIOVASCULAR: Regular S1 S2, GI: soft, non-tender, normoactive bowel sounds, : No Renal angle tenderness; EXTREMITIES: No edema, no clubbing, no cyanosis. MUSCULOSKELETAL: No Joint Tenderness; no muscle waisting NEURO: Awake; no lateralizing signs. However has some slurred speech SKIN: No Rash PSYCH; Normal affect Vitals/I&O's: Vital Signs Temp Pulse Resp BP Pulse Ox 98.3 F 76 18 120/54 L 97 03/03/19 03:45 03/03/19 03:45 03/03/19 03:45 03/03/19 03:45 03/03/19 03:45 Oxygen Flow Rate (L/min) 2 Oxygen Delivery Method Room Air Weight: 88.2 kg Body Mass Index (BMI) 29.5 Finger Stick Blood Glucose 351 Intake and Output for Last 24 Hours 03/01/19 03/02/19 03/03/19 23:59 23:59 23:59 Intake Total 808.33 / 1058.33 250 / 250 Balance 808.33 / 1058.33 250 / 250 Laboratory Results 03/02/19 08:12: POC Glucose 351 H 03/02/19 08:15: WBC 10.1, RBC 4.70, Hgb 15.0, Hct 43.0, MCV 91.5, MCH 31.9, MCHC 34.9, RDW Std Deviation 41.9, RDW Coeff of Zakiya 12.8, Plt Count 253, MPV 10.6, Immature Gran % (Auto) 1.100 H, Neut % (Auto) 67.7, Lymph % (Auto) 21.9, Oldham % (Auto) 8.2, Eos % (Auto) 0.6, Baso % (Auto) 0.5, Absolute Neuts (auto) 6.8, Absolute Lymphs (auto) 2.21, Nucleated RBC % 0 03/02/19 08:15: PT 13.0, INR 1.0, APTT 27.7 03/02/19 08:15: Sodium 135 L, Potassium 3.7, Chloride 101, Carbon Dioxide 26.0, Anion Gap 8, BUN 19 H, Creatinine 1.00, Estim Creat Clear Calc 57.33, Est GFR (MDRD) Af Amer 72, Est GFR (MDRD) Non-Af 59 L, BUN/Creatinine Ratio 19.0, Glucose 362 H, Calcium 9.4, Troponin I < 0.015 03/02/19 08:15: Acetone Level NEGATIVE 03/02/19 08:15: Hemoglobin A1c 11.1 H 03/02/19 09:18: Urine Color Yellow, Urine Clarity Cloudy, Urine pH 5.0, Ur Specific Batchelor 1.015, Urine Protein 30 H, Urine Glucose (UA) 1000 H, Urine Ketones Negative, Urine Occult Blood 25 H, Urine Nitrite Positive H, Urine Bilirubin Negative, Urine Urobilinogen Normal, Ur Leukocyte Esterase 500 H, Urine RBC 0-5 SEEN, Urine WBC 25-50 SEEN, Ur Squamous Epith Cells 0-5 SEEN, Urine Bacteria 2+, Urine Mucus 0 SEEN 03/02/19 11:17: Troponin I < 0.015 03/02/19 11:17: Lactic Acid 1.0 03/02/19 12:57: POC Glucose 297 H 03/02/19 16:28: POC Glucose 274 H 03/02/19 22:13: POC Glucose 190 H 03/03/19 05:30: WBC 8.9, RBC 4.35, Hgb 13.5, Hct 39.8, MCV 91.5, MCH 31.0, MCHC 33.9, RDW Std Deviation 43.2, RDW Coeff of Zakiya 12.9, Plt Count 216, MPV 11.1, Immature Gran % (Auto) 0.700, Neut % (Auto) 56.8, Lymph % (Auto) 32.8, Oldham % (Auto) 8.2, Eos % (Auto) 0.9, Baso % (Auto) 0.6, Absolute Neuts (auto) 5.0, Absolute Lymphs (auto) 2.90, Nucleated RBC % 0 03/03/19 05:30: Sodium 136, Potassium 3.4 L, Chloride 103, Carbon Dioxide 27.0, Anion Gap 6, BUN 16, Creatinine 0.80, Estim Creat Clear Calc 71.67, Est GFR (MDRD) Af Amer 93, Est GFR (MDRD) Non-Af 77, BUN/Creatinine Ratio 20.1 H, Glucose 205 H, Calcium 8.6, Magnesium 1.5 L, Triglycerides 156, Cholesterol 205 H, LDL Cholesterol 134 H, VLDL Cholesterol 31, HDL Cholesterol 40 03/03/19 06:40: POC Glucose 228 H Current Medications Acetaminophen (Tylenol) 650 mg PO Q6H PRN PRN PRN Reason: Mild pain 1-3/Temp > 100.7 F Last Admin: 03/03/19 04:54 Dose: 650 mg Documented by: Al Hydroxide/Mg Hydroxide (Mylanta Ii) 30 ml PO Q6H PRN PRN PRN Reason: Gastric Burning Albuterol Sulfate (Ventolin Aerosols) 2.5 mg INHALATION Q2H PRN PRN PRN Reason: SOB/Wheezing Apixaban (Eliquis) 5 mg PO BID [facility] Last Admin: 03/02/19 22:14 Dose: 5 mg Documented by: Aripiprazole (Abilify) 10 mg PO DAILY [facility] Last Admin: 03/02/19 16:41 Dose: 10 mg Documented by: Aspirin (Ecotrin) 81 mg PO DAILY@0800 [facility] Atorvastatin Calcium (Lipitor) 40 mg PO QHS [facility] Last Admin: 03/02/19 22:15 Dose: 40 mg Documented by: Cyclobenzaprine HCl (Cyclobenzaprine Hcl) 5 mg PO TID PRN PRN PRN Reason: Pain Score 1-10/10 Dextrose (D50w Syringe) 0 gm IV X1 PRN; Protocol PRN Reason: Hypoglycemia Duloxetine HCl (Cymbalta) 60 mg PO DAILY [facility] Last Admin: 09/24/19 16:41 Dose: 60 mg Documented by: Fluticasone Propionate (Flonase Nasal Mercer) 2 spray NASAL DAILY [facility] Glucagon () 1 mg IM .X1 PRN PRN Reason: Hypoglycemia Ceftriaxone Sodium (Rocephin) 1 gm in 50 mls @ 100 mls/hr IV Q24H [facility] Insulin Glargine (Lantus ([facility])) 65 units SC DAILY [facility] Last Admin: 03/02/19 16:38 Dose: 65 u Documented by: Insulin Human Lispro (Humalog Kwikpen ([facility])) 0 unit SC [facility]; Protocol Last Admin: 03/03/19 06:42 Dose: 4 u Documented by: Loratadine (Claritin) 10 mg PO DAILY [facility] Last Admin: 03/02/19 16:40 Dose: 10 mg Documented by: Losartan Potassium (Cozaar) 12.5 mg PO DAILY [facility] Last Admin: 03/02/19 16:41 Dose: 12.5 mg Documented by: Magnesium Hydroxide (Milk Of Magnesia) 30 ml PO DAILY PRN PRN PRN Reason: Constipation Melatonin (Melatonin) 3 mg PO QHS PRN PRN PRN Reason: INSOMNIA Metoprolol Tartrate (Lopressor (Beta Guzman)) 50 mg PO BID [facility] Last Admin: 03/02/19 22:15 Dose: 50 mg Documented by: Nicotine Polacrilex (Rugby Nicotine ([facility])) 2 mg PO Q2H PRN PRN PRN Reason: SMOKING CESSATION Nitroglycerin (Nitrostat) 0.4 mg SUBLINGUAL Q5M PRN PRN Reason: CARDIAC/CHEST PAIN Ondansetron HCl (Zofran) 4 mg IV Q8H PRN PRN PRN Reason: NAUSEA/VOMITING Oxycodone HCl (Oxyir) 5 mg PO Q4H PRN PRN PRN Reason: Moderate Pain (4-6/10) Pantoprazole Sodium (Protonix) 20 mg PO DAILY [facility] Last Admin: 03/02/19 16:40 Dose: 20 mg Documented by: Potassium Chloride (K-Dur) [facility] Potassium Chloride (K-Dur) 20 me[facility] Tolterodine Tartrate (Detrol La) 2 mg PO DAILY [facility] Last Admin: 03/02/19 16:40 Dose: 2 mg Documented by: Medical Necessity - Tobacco Use Smoking Status: Current some day smoker Tobacco Use: Cigarettes Assessment/Plan All Active Problems (Last Reviewed 03/02/19 @ 12:33 by Ramana Becker MD) Dysphasia (Acute) UTI (urinary tract infection) (Acute) Hyperglycemia (Acute) CVA (cerebral vascular accident) (Acute) URI (upper respiratory infection) (Resolved) Sinusitis (Resolved) History of coronary artery stent placement (Resolved 04/06/11) DKA (diabetic ketoacidoses) (Resolved) UTI (urinary tract infection) (Resolved) Patient is a 63-year-old lady with history of paroxysmal atrial fibrillation, previous CVA diabetes mellitus type 2 hypertension brought to the emergency department with slurred speech. Patient also had abnormal urinalysis on admission 1. Suspected acute CVA ~Presented with slurred speech. Admitted to monitored bed, placed on every 4 neurochecks, ordered MRI of the head, CTA of the neck 2D echo patient is already on antiplatelet did continue in consultation placed to neurology ?03/03/2019:imaging studies obtained as part of patient's management demonstrated. Acute/subacute infarct of the cortex of the gyrus of the posterior left parietal lobe.. Chronic infarction left hemisphere of the cerebellum in the left occipital lobe. Consult subsequently placed to neur ology. 2. Acute cystitis ~Cultures sent from the ED patient started on Rocephin with plans to adjust antibiotic therapy based on culture results ?03/03/2019Urine cultures so far positive for gram-negative rods. Rocephin did continue 3. Essential hypertension ~Patient blood pressure within permissive level did continue with home meds 4. Dyslipidemia ~patient is on statin therapy, continued at home dose 5. Diabetes mellitus type 2 with uncontrolled blood glucose levels ~Patient is on long-acting insulin did continue also added scheduled pre-meal insulin in addition to correction factor sliding scale 6. 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 Paroxysmal atrial fibrillation ?Rate controlled. Patient is on systemic anticoagulation with Eliquis continued 8. Coronary artery disease with previous stent placement ~Is on recommended medications 9. Tobacco dependence counseled on cessation, ~offered nicotine patch for tobacco cravings 10. DVT prophylaxis: Patient on Eliquis, no additional measures warranted Clinical Impression(s) from Imaging Studies Brain CT 03/02/19 08:18 IMPRESSION: Chronic involutional changes of the brain. No acute abnormality is seen. N.B. : The above information has been verbally conveyed by Steve Holloway to Arlen Barrientos on 03/02/2019 08:35:47 (ET). Electronically Signed: Steve Machadorashel, at 8:36 EDT , Service support , ADDENDUM: 03/02/19 0843 IMPRESSION: Chronic involutional changes of the brain. No acute abnormality is seen. N.B. : The above information has been verbally conveyed by Steve Holloway to Arlen Barrientos on 03/02/2019 08:35:47 (ET). Electronically Signed: Steve Amie, at 8:36 EDT , Service support , Chest X-Ray 03/02/19 08:18 IMPRESSION: No acute abnormality is seen. Electronically Signed: Steve Amie, at 9:16 EDT , Service support , Brain MRI 03/02/19 10:54 IMPRESSION: 1. Acute/subacute infarct of the cortex of the gyrus of the posterior left parietal lobe. 2. Chronic infarction left hemisphere of the cerebellum in the left occipital lobe. 3. Mild diffuse cerebral atrophy and microangiopathic gliosis from chronic hypertension or metabolic disease. Electronically Signed: Milan Guadalupe MD at 12:38 EDT Tel , Service support , ADDENDUM: 03/02/19 1255 IMPRESSION: 1. Acute/subacute infarct of the cortex of the gyrus of the posterior left parietal lobe. 2. Chronic infarction left hemisphere of the cerebellum in the left occipital lobe. 3. Mild diffuse cerebral atrophy and microangiopathic gliosis from chronic hypertension or metabolic disease. N.B. : The above information has been verbally conveyed by Milan Guadalupe MD to Clare Sanford [phone], on 03/02/2019 12:48:48 (ET). Electronically Signed: Milan Guadalupe MD at 12:38 EDT Tel , Service support , Head/Neck CTA 03/02/19 12:27 IMPRESSION: Calcific plaque at the carotid bifurcations bilaterally with no significant stenosis. Electronically Signed: Steve Holloway, at 14:16 EDT , Service support , Code Visit Inpatient E&M: 25245 Subs Hosp L3
[2019-03-03] MEDS: Aspirin E.C. 81 MG Tablet PO (10:01)
[2019-03-03] MEDS: Losartan Potassium 25 MG Tablet 12.5 MG PO (10:02)
[2019-03-03] MEDS: Loratadine 10 MG Tablet PO (10:02)
[2019-03-03] MEDS: ARIPiprazole 10 MG Tablet PO (10:02)
[2019-03-03] MEDS: APIXABAN 5 MG TABLET PO ×2 (10:03→22:08)
[2019-03-03] MEDS: Tolterodine Tartrate 2 MG CAP.SA PO (10:03)
[2019-03-03] MEDS: DULoxetine Hcl 60 MG Capsule PO (10:03)
[2019-03-03] MEDS: Metoprolol Tartrate 50 MG Tablet PO ×2 (10:06→22:08)
[2019-03-03] MEDS: Ceftriaxone 1 GM/50 ML BAG IV (10:06)
[2019-03-03] MEDS: Pantoprazole Sodium 20 MG Tablet PO (10:06)
--- NOTE | 2019-03-03 12:11 | CASEMGMT ---
ANA COSTELLO assessment: Face to Face with patient for initial transition planning/care coordination assessment. ANA COSTELLO introduced self and role at [facility], pt voices understanding and consents to assessment at this time. Pt is sitting up in chair in no distress at this time. Pt is A/Ox4 at this time and answers all questions appropriately at this time. Pt with several family members at bedside during assessment. Care providers, pharmacy, and demographics verified at this time. Pt presented to ED 03/02/19 with c/o right arm weakness and speech problems. Pt states hx of CAD and previous strokes. PCP: [facility] Specialists: Pt states currently has no specialists. Preferred Pharmacy: [facility] Insurance: MMO/[place] [employer] A Prescription Benefit: Yes Living Will/HPOA: Pt states does not have LW/HPOA but would like to complete documents at this time. Mo VALVERDE aware, voices understanding. LNOK: Reina Love, daughter Living Arrangements: Pt states lives with son in 1 story home with laundry in the basement. Pt states no concerns at home at this time and is normally indepedent with ADL's. Transportation: Pt states drives self and states no transportation concerns at this time. DME/HHC: Pt states has the following DME: cane, walker, and shower chair. Pt states does not currently use the cane/walker. Pt states no need for any further DME at this time. Pt states no hx of HHC or SNF in the past. Therapy states no need for inpt rehab or skilled therapy at this time. Pt states no concerns with going home at time of discharge. Pt states is disabled. Pt states smokes a pack/day but does not drink ETOH. Pt states no further concerns/needs at this time. CM to follow for any further discharge planning/needs. Advised pt to ask for CM if any further questions/concerns/needs arise, voices understanding. Pt Goal: Home [place] ANA [place]STELLO
--- NOTE | 2019-03-03 12:28 | CASEMGMT ---
SW completed a PHQ-9 with patient as she had a Stroke. She scored a 9 which indicates minimal Depression. She declined a list of mental health providers. She said she has tried counseling 2 times and it was not helpful at all. She said she just wants to go home and get some sleep as it is impossible to get good sleep while in the hospital. She also asked RN TRANG about advance directives. She told SW to leave the documents as she did not want to complete them right now due to being tired. Jumana NELSON MSW
[2019-03-03 12:40] LABS: Bedside Glucose 320 mg/dL (70-110)
--- NOTE | 2019-03-03 13:18 | PCM.PN.NEU ---
Patient Problems: Active and Suspected Problems (Last Reviewed 03/02/19 @ 12:33 by Ramana Becker MD) Dysphasia (Acute) UTI (urinary tract infection) (Acute) Hyperglycemia (Acute) CVA (cerebral vascular accident) (Acute) Subjective: No issues overnight. - Physical Exam General: Alert HEENT: Normocephalic Neck: Supple Lungs: Normal air movement Cardiovascular: Normal S1, Normal S2 Abdomen: Bowel Sounds Present Extremities: No cyanosis Neurological: - - Conscious, alert, AOA x3, CN II through XII grossly intact, power 5 x 5 left upper and lower extremities, 5 x 5 proximal right upper and lower extremities, mild handgrip weakness of the right upper extremity, no sensory loss, no cerebellar signs, gait deferred, possible mild aphasia, reflexes + B/L B/S/T/K/A, NIHSS 1 at present, mRS 0 at baseline Psych/Mental Status: Normal Affect Vital Signs Temp Pulse Resp BP Pulse Ox 98 F 70 16 115/78 96 03/03/19 08:32 03/03/19 11:06 03/03/19 08:32 03/03/19 10:06 03/03/19 08:32 Oxygen Flow Rate (L/min) 2 Oxygen Delivery Method Room Air Weight: 88.2 kg Body Mass Index (BMI) 29.5 Finger Stick Blood Glucose 351 Intake and Output for Last 24 Hours 03/01/19 03/02/19 03/03/19 23:59 23:59 23:59 Intake Total 808.33 / 1058.33 300 / 300 Balance 808.33 / 1058.33 300 / 300 Microbiology Past 72 Hours 03/02/19 09:18 Urine Culture - Preliminary 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, 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 Laboratory Tests Past 24 Hrs 03/02/19 03/03/19 03/03/19 08:15 05:30 05:30 WBC 8.9 RBC 4.35 Hgb 13.5 Hct 39.8 MCV 91.5 MCH 31.0 MCHC 33.9 RDW Std Deviation 43.2 RDW Coeff of Zakiya 12.9 Plt Count 216 MPV 11.1 Immature Gran % (Auto) 0.700 Neut % (Auto) 56.8 Lymph % (Auto) 32.8 [place] % (Auto) 8.2 Eos % (Auto) 0.9 Baso % (Auto) 0.6 Absolute Neuts (auto) 5.0 Absolute Lymphs (auto) 2.90 Nucleated RBC % 0 Sodium 136 Potassium 3.4 L Chloride 103 Carbon Dioxide 27.0 Anion Gap 6 BUN 16 Creatinine 0.80 Estim Creat Clear Calc 71.67 Est GFR (MDRD) Af Amer 93 Est GFR (MDRD) Non-Af 77 BUN/Creatinine Ratio 20.1 H Glucose 205 H Hemoglobin A1c 11.1 H Calcium 8.6 Magnesium 1.5 L Triglycerides 156 Cholesterol 205 H LDL Cholesterol 134 H VLDL Cholesterol 31 HDL Cholesterol 40 POC Glucose 03/03/19 03/03/19 03/02/19 11:19 06:40 22:13 POC Glucose 320 H 228 H 190 H 03/02/19 16:28 POC Glucose 274 H Medical Necessity - Tobacco Use Smoking Status: Current some day smoker Tobacco Use: Cigarettes Assessment/Plan All Active Problems (Last Reviewed 03/02/19 @ 12:33 by Ramana Becker MD) Dysphasia (Acute) UTI (urinary tract infection) (Acute) Hyperglycemia (Acute) CVA (cerebral vascular accident) (Acute) URI (upper respiratory infection) (Resolved) Sinusitis (Resolved) History of coronary artery stent placement (Resolved 04/06/11) DKA (diabetic ketoacidoses) (Resolved) UTI (urinary tract infection) (Resolved) The patient is a 63 year old F PMH HTN, HLD, DM, history of stroke in 2010, CAD status post stent, PAF not on anticoagulation (was on Pradaxa in 2013 and on apixaban later on per documentation but on family/patient review she denies being on any anticoagulation at present), depression/anxiety admitted with right weakness and speech disturbances. History is obtained from the patient, family as well as medical records/documentation. Per son she was normal last night 03/01/2019 but when she woke up this morning she had difficulty in getting her words out and also had weakness in the right side. Per ED documentation NIHSS was 1 on admission. Patient was not a TPA candidate. Per son and daughter at present she is probably not on apixaban for A. fib, and is only on aspirin. Patient and family are a poor historian. Patient lives with her son, denies any frequent falls, does not use cane or walker to ambulate, does drive and does not need any assistance for her ADLs. MRI brain done on admission reported to show acute/subacute left posterior parietal small infarct. CTA head/neck reported to show less than 50% stenosis in the bilateral ICA and no hemodynamically significant stenosis or occlusion. On admission patient was also found to have UTI. Impression Acute/subacute small left posterior parietal infarct Chronic left occipital infarct Plan ?[id number] score of 5, Started on apixaban 5 mg p.o. twice daily. Bleeding risks discussed in detail ?Lipitor 40 mg p.o. nightly ?MRI brain and CT angiogram head/neck reviewed ?TTE-EF 40%, mildly enlarged LA, no PFO ?[id number] ?Stroke risk factors discussed and stroke education provided ?Patient counseled to stop smoking ?Permissive hypertension for at least 24 hours ?Long-term goal blood pressure less than 130/80 mmHg and goal HbA1c less than 7% ?PT/OT/ST ?Fall precautions ?GI/DVT prophylaxis ?Further medical management/UTI management per hospitalist team ?Follow-up with neurology as outpatient in 3 to 4 weeks ?Please call with questions if any ?Thank you for allowing us to participate in patient's care and management This note has been generated using [employer] dictation software. It may contain incorrect words, spellings and punctuation's which were not noted in the review of the note prior to signing.
[2019-03-03 13:56] LABS: Hemoglobin A1c 11.6 % (4.2-6.3)
--- NOTE | 2019-03-03 15:58 | NURSING ---
Reviewed SN documentation.
[2019-03-03 21:21] LABS: Bedside Glucose 275 mg/dL (70-110)
[2019-03-03] MEDS: Atorvastatin Calcium 40 MG Tablet PO (22:08)
[2019-03-03 22:30] LABS: Bedside Glucose 286 mg/dL (70-110)
[2019-03-03] MEDS: MELATONIN 3 MG TABLET PO (23:35)
[2019-03-04] VITALS (11 sets, daily range): BP systolic 94–124; BP diastolic 53–78; PULSE 62–88; RESP 16–22; TEMP 36.6–37; O2SAT 93–99; BMI 29.5
[2019-03-04] MEDS: Acetaminophen 325 MG Tablet 650 MG PO (03:41)
[2019-03-04] MEDS: Insulin Lispro 100 UNIT/ML INSULN.PEN SC ×4 (06:33→21:05)
[2019-03-04 06:48] LABS: Absolute Lymphocyte Count 1.98 X10^3/uL (0.83-4.51); Absolute Neutrophil Count 5.2 X10^3/uL (2.0-7.7); Basophil# 0.07 X10^3/uL; Basophil% 0.8 % (0-1); Eosinophil# 0.09 X10^3/uL; Eosinophils% 1.1 % (0-5); Hematocrit 43.5 % (37-47); Lymphocyte # 1.98 X10^3/ul (4.0); Lymphocyte % 23.9 % (19-41); Mean Corp Hgb Conc 34.5 g/dL (32-36); Mean Corpuscular Hgb 31.8 pg (27.0-32.0); Mean Corpuscular Volume 92.4 fL (81-99); Mean Platelet Vol. 10.6 fl (6.2-12.0); Monocyte# 0.82 X10^3/uL; Monocyte% 9.9 % (0-10); NRBC Flagged by Analyzer 0 % (0-5); Neutrophil # 5.22 X10^3/uL (2.7-7.7); Neutrophil % 63.2 % (47-70); Platelet Count 258 K/mm3 (150-450); RBC Distribution Width CV 12.8 % (11.6-14.6); RBC Distribution Width SD 43.5 fl (35.1-43.9); Red Blood Count 4.71 M/mm3 (4.2-5.4); White Blood Count 8.3 K/mm3 (4.4-11.0)
[2019-03-04 06:51] LABS: Bedside Glucose 328 mg/dL (70-110)
[2019-03-04 07:18] LABS: Anion Gap 6 (5-15); BUN 19 mg/dL (7-18); BUN/Creat Ratio 17.3 RATIO (10-20); Calcium,Total 9.1 mg/dL (8.5-10.1); Chloride 103 mmol/L (98-107); EST Glomerular Filtration Rate 53 mL/min (>60); Est Glom Filt Rate - Afr Amer 64 mL/min (>60); Estimated Creatinine Clearance 52.12 ml/min; Glucose 332 mg/dL (74-106); Sodium Level 136 mmol/L (136-145)
--- NOTE | 2019-03-04 07:25 | PCM.PN.HOSP ---
Patient Problems: Active and Suspected Problems (Last Reviewed 03/02/19 @ 12:33 by Ramana Becker MD) Dysphasia (Acute) UTI (urinary tract infection) (Acute) Hyperglycemia (Acute) CVA (cerebral vascular accident) (Acute) Subjective: CC: Follow-up acute CVA Patient seen, speech continues to improve. Did call the lab regarding patient urine culture result. Was reported patient is growing E. coli however sensitivities will be ready on 03/05/2019 Objective: GENERAL: cooperative HEENT: Atraumatic; moist oral mucosa EYES; Anicteric, Normal Conjunctiva NECK; supple, normal thyroid, RESPIRATORY: Diminished to auscultation CARDIOVASCULAR: Regular S1 S2, GI: soft, non-tender, normoactive bowel sounds, : No Renal angle tenderness; EXTREMITIES: No edema, no clubbing, no cyanosis. MUSCULOSKELETAL: No Joint Tenderness; no muscle waisting NEURO: Awake; no lateralizing signs. However has some slurred speech SKIN: No Rash PSYCH; Normal affect Vitals/I&O's: Vital Signs Temp Pulse Resp BP Pulse Ox 98.6 F 62 18 109/78 99 03/04/19 06:00 03/04/19 06:00 03/04/19 06:00 03/04/19 06:00 03/04/19 06:00 Oxygen Flow Rate (L/min) 2 Oxygen Delivery Method Room Air Weight: 88.2 kg Body Mass Index (BMI) 29.5 Finger Stick Blood Glucose 351 Intake and Output for Last 24 Hours 03/02/19 03/03/19 03/04/19 23:59 23:59 23:59 Intake Total 808.33 / 1058.33 800 / 800 240 / 240 Balance 808.33 / 1058.33 800 / 800 240 / 240 Microbiology Past 72 Hours 03/02/19 09:18 Urine, Clean Catch Urine Culture - Preliminary GNR lactose oyster 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 % (Auto) 9.9, Eos % (Auto) 1.1, Baso % (Auto) 0.8, Absolute Neuts (auto) 5.2, Absolute Lymphs (auto) 1.98, Nucleated RBC % 0 03/04/19 06:35: Sodium 136, Potassium 4.0, Chloride 103, Carbon Dioxide 27.0, Anion Gap 6, BUN 19 H, Creatinine 1.10 H, Estim Creat Clear Calc 52.12, Est GFR (MDRD) Af Amer 64, Est GFR (MDRD) Non-Af 53 L, BUN/Creatinine Ratio 17.3, Glucose 332 H, Calcium 9.1 Current Medications Acetaminophen (Tylenol) 650 mg PO Q6H PRN PRN PRN Reason: Mild pain 1-3/Temp > 100.7 F Last Admin: 03/04/19 03:41 Dose: 650 mg Documented by: Al Hydroxide/Mg Hydroxide (Mylanta Ii) 30 ml PO Q6H PRN PRN PRN Reason: Gastric Burning Albuterol Sulfate (Ventolin Aerosols) 2.5 mg INHALATION Q2H PRN PRN PRN Reason: SOB/Wheezing Apixaban (Eliquis) 5 mg PO BID [facility] Last Admin: 03/03/19 22:08 Dose: 5 mg Documented by: Aripiprazole (Abilify) 10 mg PO DAILY [facility] Last Admin: 03/03/19 10:02 Dose: 10 mg Documented by: Aspirin (Ecotrin) 81 mg PO DAILY@0800 [facility] Last Admin: 03/03/19 10:01 Dose: 81 mg Documented by: Atorvastatin Calcium (Lipitor) 40 mg PO QHS [facility] Last Admin: 03/03/19 22:08 Dose: 40 mg Documented by: Cyclobenzaprine HCl (Cyclobenzaprine Hcl) 5 mg PO TID PRN PRN PRN Reason: Pain Score 1-10/10 Dextrose (D50w Syringe) 0 gm IV X1 PRN; Protocol PRN Reason: Hypoglycemia Duloxetine HCl (Cymbalta) 60 mg PO DAILY [facility] Last Admin: 03/03/19 10:03 Dose: 60 mg Documented by: Fluticasone Propionate (Flonase Nasal [place]) 2 spray NASAL DAILY [facility] Last Admin: 03/03/19 10:19 Dose: Not Given Documented by: Glucagon () 1 mg IM .X1 PRN PRN Reason: Hypoglycemia Ceftriaxone Sodium (Rocephin) 1 gm in 50 mls @ 100 mls/hr IV Q24H [facility] Last Infusion: 03/03/19 10:36 Dose: Infused Documented by: Insulin Glargine (Lantus ([facility])) 65 units SC DAILY [facility] Last Admin: 03/03/19 10:04 Dose: 65 u Documented by: Insulin Human Lispro (Humalog Kwikpen ([facility])) 0 unit SC ACHS [facility]; Protocol Last Admin: 03/04/19 06:33 Dose: 8 u Documented by: Loratadine (Claritin) 10 mg PO DAILY [facility] Last Admin: 03/03/19 10:02 Dose: 10 mg Documented by: Losartan Potassium (Cozaar) 12.5 mg PO DAILY [facility] Last Admin: 03/03/19 10:02 Dose: 12.5 mg Documented by: Magnesium Hydroxide (Milk Of Magnesia) 30 ml PO DAILY PRN PRN PRN Reason: Constipation Melatonin (Melatonin) 3 mg PO QHS PRN PRN PRN Reason: INSOMNIA Last Admin: 03/03/19 23:35 Dose: 3 mg Documented by: Metoprolol Tartrate (Lopressor (Beta Guzman)) 50 mg PO BID [facility] Last Admin: 03/03/19 22:08 Dose: 50 mg Documented by: Nicotine Polacrilex ([place] Nicotine ([facility])) 2 mg PO Q2H PRN PRN PRN Reason: SMOKING CESSATION Nitroglycerin (Nitrostat) 0.4 mg SUBLINGUAL Q5M PRN PRN Reason: CARDIAC/CHEST PAIN Ondansetron HCl (Zofran) 4 mg IV Q8H PRN PRN PRN Reason: NAUSEA/VOMITING Oxycodone HCl (Oxyir) 5 mg PO Q4H PRN PRN PRN Reason: Moderate Pain (4-6/10) Pantoprazole Sodium (Protonix) 20 mg PO DAILY [facility] Last Admin: 03/03/19 10:06 Dose: 20 mg Documented by: Potassium Chloride (K-Dur) 20 meq PO BIDCM [facility] Last Admin: 03/03/19 17:06 Dose: 20 meq Documented by: Tolterodine Tartrate (Detrol La) 2 mg PO DAILY [facility] Last Admin: 03/03/19 10:03 Dose: 2 mg Documented by: Medical Necessity - Tobacco Use Smoking Status: Current some day smoker Tobacco Use: Cigarettes Assessment/Plan All Active Problems (Last Reviewed 03/02/19 @ 12:33 by Ramana Becker MD) Dysphasia (Acute) UTI (urinary tract infection) (Acute) Hyperglycemia (Acute) CVA (cerebral vascular accident) (Acute) URI (upper respiratory infection) (Resolved) Sinusitis (Resolved) History of coronary artery stent placement (Resolved 04/06/11) DKA (diabetic ketoacidoses) (Resolved) UTI (urinary tract infection) (Resolved) Patient is a 63-year-old lady with history of paroxysmal atrial fibrillation, previous CVA diabetes mellitus type 2 hypertension brought to the emergency department with slurred speech. Patient also had abnormal urinalysis on admission 1. Suspected acute CVA ~Presented with slurred speech. Admitted to monitored bed, placed on every 4 neurochecks, ordered MRI of the head, CTA of the neck 2D echo patient is already on antiplatelet did continue in consultation placed to neurology ?03/03/2019:imaging studies obtained as part of patient's management demonstrated. Acute/subacute infarct of the cortex of the gyrus of the posterior left parietal lobe.. Chronic infarction left hemisphere of the cerebellum in the left occipital lobe. Consult subsequently placed to neurology. ?03/04/2019. Patient dysarthria continues to improve. Currently on optimal treatment. 2. Acute cystitis ~Cultures sent from the ED patient started on Rocephin with plans to adjust antibiotic therapy based on culture results ?03/03/2019Urine cultures so far positive for gram-negative rods. Rocephin did continue ?03/04/2019 did call the lab regarding patient urine culture result. Was reported patient is growing E. coli however sensitivities will be ready on 03/05/2019 3. Essential hypertension ~Patient blood pressure within permissive level did continue with home meds 4. Dyslipidemia ~patient is on statin therapy, continued at home dose 5. Diabetes mellitus type 2 with uncontrolled blood glucose levels ~Patient is on long-acting insulin did continue also added scheduled pre-meal insulin in addition to correction factor sliding scale 6. 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 Paroxysmal atrial fibrillation ?Rate controlled. Patient is on systemic anticoagulation with Eliquis continued 8. Coronary artery disease with previous stent placement ~Is on recommended medications 9. Tobacco dependence counseled on cessation, ~offered nicotine patch for tobacco cravings 10. DVT prophylaxis: Patient on Eliquis, no additional measures warranted Code Visit Inpatient E&M: 18812 Subs Hosp L2
[2019-03-04] MEDS: Aspirin E.C. 81 MG Tablet PO (08:31)
[2019-03-04] MEDS: ARIPiprazole 10 MG Tablet PO (08:32)
[2019-03-04] MEDS: DULoxetine Hcl 60 MG Capsule PO (08:33)
[2019-03-04] MEDS: Losartan Potassium 25 MG Tablet 12.5 MG PO (08:33)
[2019-03-04] MEDS: Loratadine 10 MG Tablet PO (08:33)
[2019-03-04] MEDS: APIXABAN 5 MG TABLET PO ×2 (08:34→21:05)
[2019-03-04] MEDS: Tolterodine Tartrate 2 MG CAP.SA PO (08:34)
[2019-03-04] MEDS: Metoprolol Tartrate 50 MG Tablet PO ×2 (08:34→21:05)
[2019-03-04] MEDS: Pantoprazole Sodium 20 MG Tablet PO (08:35)
[2019-03-04] MEDS: Ceftriaxone 1 GM/50 ML BAG IV (10:37)
[2019-03-04 11:31] LABS: Bedside Glucose 342 mg/dL (70-110)
--- NOTE | 2019-03-04 13:51 | PN.NEURO_ITS ---
Patient Problems: Active and Suspected Problems (Last Reviewed 03/02/19 @ 12:33 by Ramana Becker MD) Dysphasia (Acute) UTI (urinary tract infection) (Acute) Hyperglycemia (Acute) CVA (cerebral vascular accident) (Acute) Subjective: No issues overnight. - Physical Exam General: Alert HEENT: Normocephalic Neck: Supple Lungs: Normal air movement Cardiovascular: Normal S1, Normal S2 Abdomen: Bowel Sounds Present Extremities: No cyanosis Neurological: - - Conscious, alert, AOA x3, CN II through XII grossly intact, po wer 5 x 5 left upper and lower extremities, 5 x 5 proximal right upper and lower extremities, mild handgrip weakness of the right upper extremity, no sensory loss, no cerebellar signs, gait deferred, possible mild aphasia, reflexes + B/L B/S/T/K/A, NIHSS 1 at present, mRS 0 at baseline Psych/Mental Status: Normal Affect Vital Signs Temp Pulse Resp BP Pulse Ox 98.2 F 77 18 111/70 97 03/04/19 10:00 03/04/19 10:00 03/04/19 10:00 03/04/19 10:00 03/04/19 10:00 Oxygen Flow Rate (L/min) 2 Oxygen Delivery Method Room Air Weight: 88.2 kg Body Mass Index (BMI) 29.5 Finger Stick Blood Glucose 351 Intake and Output for Last 24 Hours 03/02/19 03/03/19 03/04/19 23:59 23:59 23:59 Intake Total 808.33 / 1058.33 800 / 800 770 / 770 Balance 808.33 / 1058.33 800 / 800 770 / 770 Microbiology Past 72 Hours 03/02/19 09:18 Urine Culture - Preliminary Urine, Clean Catch Presumptive E. coli Laboratory Tests Past 24 Hrs 03/03/19 03/04/19 03/04/19 05:30 06:35 06:35 WBC 8.3 RBC 4.71 Hgb 15.0 Hct 43.5 MCV 92.4 MCH 31.8 MCHC 34.5 RDW Std Deviation 43.5 RDW Coeff of Zakiya 12.8 Plt Count 258 MPV 10.6 Immature Gran % (Auto) 1.100 H Neut % (Auto) 63.2 Lymph % (Auto) 23.9 [place] % (Auto) 9.9 Eos % (Auto) 1.1 Baso % (Auto) 0.8 Absolute Neuts (auto) 5.2 Absolute Lymphs (auto) 1.98 Nucleated RBC % 0 Sodium 136 Potassium 4.0 Chloride 103 Carbon Dioxide 27.0 Anion Gap 6 BUN 19 H Creatinine 1.10 H Estim Creat Clear Calc 52.12 Est GFR (MDRD) Af Amer 64 Est GFR (MDRD) Non-Af 53 L BUN/Creatinine Ratio 17.3 Glucose 332 H Hemoglobin A1c 11.6 H Calcium 9.1 POC Glucose 03/04/19 03/04/19 03/03/19 11:18 06:31 22:02 POC Glucose 342 H 328 H 286 H 03/03/19 17:01 POC Glucose 275 H Medical Necessity - Tobacco Use Smoking Status: Current some day smoker Tobacco Use: Cigarettes Assessment/Plan All Active Problems (Last Reviewed 03/02/19 @ 12:33 by Ramana Becker MD) Dysphasia (Acute) UTI (urinary tract infection) (Acute) Hyperglycemia (Acute) CVA (cerebral vascular accident) (Acute) URI (upper respiratory infection) (Resolved) Sinusitis (Resolved) History of coronary artery stent placement (Resolved 04/06/11) DKA (diabetic ketoacidoses) (Resolved) UTI (urinary tract infection) (Resolved) The patient is a 63 year old F PMH HTN, HLD, DM, history of stroke in 2010, CAD status post stent, PAF not on anticoagulation (was on Pradaxa in 2013 and on apixaban later on per documentation but on family/patient review she denies being on any anticoagulation at present), depression/anxiety admitted with right weakness and speech disturbances. History is obtained from the patient, family as well as medical records/documentation. Per son she was normal last night 03/01/2019 but when she woke up this morning she had difficulty in getting her words out and also had weakness in the right side. Per ED documentation NIHSS was 1 on admission. Patient was not a TPA candidate. Per son and daughter at present she is probably not on apixaban for A. fib, and is only on aspirin. Patient and family are a poor historian. Patient lives with her son, denies any frequent falls, does not use cane or walker to ambulate, does drive and does not need any assistance for her ADLs. MRI brain done on admission reported to show acute/subacute left posterior parietal small infarct. CTA head/neck reported to show less than 50% stenosis in the bilateral ICA and no hemodynamically significant stenosis or occlusion. On admission patient was also found to have UTI. Impression Acute/subacute small left posterior parietal infarct Chronic left occipital infarct Plan ?[id number] score of 5, on apixaban 5 mg p.o. twice daily. Bleeding risks discussed in detail ?Lipitor 40 mg p.o. nightly ?MRI brain and CT angiogram head/neck reviewed ?TTE-EF 40%, mildly enlarged LA, no PFO ?[id number] LDL-134 ?Better DM control and management. Will defer to hospitalist/PCP ?Endocrinology consult ?Cardiology consult ?Stroke risk factors discussed and stroke education provided ?Patient counseled to stop smoking ?Long-term goal blood pressure less than 130/80 mmHg and goal HbA1c less than 7% ?PT/OT/ST ?Fall precautions ?GI/DVT prophylaxis ?Further medical management/UTI management per hospitalist team ?Follow-up with neurology as outpatient in 3 to 4 weeks ?Please call with questions if any ?Thank you for allowing us to participate in patient's care and management This note has been generated using [employer] dictation software. It may contain incorrect words, spellings and punctuation's which were not noted in the review of the note prior to signing.
[2019-03-04 16:26] LABS: Bedside Glucose 300 mg/dL (70-110)
[2019-03-04] MEDS: Atorvastatin Calcium 40 MG Tablet PO (21:05)
[2019-03-05 00:16] LABS: Bedside Glucose 304 mg/dL (70-110)
[2019-03-05 00:24] VITALS: BP 107/61; PULSE 72; RESP 19; TEMP 36.7; O2SAT 93
[2019-03-05 01:19] VITALS: BMI 29.5
[2019-03-05] MEDS: oxyCODONE 5 MG Tablet PO (02:29)
[2019-03-05 02:31] VITALS: BP 108/68
[2019-03-05 03:00] VITALS: PULSE 70
[2019-03-05 04:24] VITALS: BP 109/66; PULSE 72; RESP 14; TEMP 36.8; O2SAT 96
[2019-03-05 05:57] LABS: Absolute Lymphocyte Count 2.21 X10^3/uL (0.83-4.51); Basophil# 0.06 X10^3/uL; Basophil% 0.7 % (0-1); Eosinophil# 0.09 X10^3/uL; Eosinophils% 1.1 % (0-5); Hematocrit 43.1 % (37-47); Hemoglobin 14.7 g/dL (12.0-15.0); Lymphocyte # 2.21 X10^3/ul (4.0); Lymphocyte % 26.7 % (19-41); Mean Corp Hgb Conc 34.1 g/dL (32-36); Mean Corpuscular Hgb 31.7 pg (27.0-32.0); Mean Corpuscular Volume 92.9 fL (81-99); Mean Platelet Vol. 10.9 fl (6.2-12.0); Monocyte# 0.83 X10^3/uL; NRBC Flagged by Analyzer 0 % (0-5); Neutrophil # 5.02 X10^3/uL (2.7-7.7); Neutrophil % 60.5 % (47-70); Platelet Count 242 K/mm3 (150-450); RBC Distribution Width SD 44.1 fl (35.1-43.9); Red Blood Count 4.64 M/mm3 (4.2-5.4); White Blood Count 8.3 K/mm3 (4.4-11.0)
[2019-03-05 06:13] LABS: Anion Gap 7 (5-15); BUN 21 mg/dL (7-18); BUN/Creat Ratio 20.2 RATIO (10-20); Calcium,Total 9.2 mg/dL (8.5-10.1); Chloride 101 mmol/L (98-107); Creatinine, Serum 1.04 mg/dL (0.55-1.02); EST Glomerular Filtration Rate 57 mL/min (>60); Est Glom Filt Rate - Afr Amer 68 mL/min (>60); Estimated Creatinine Clearance 55.13 ml/min; Glucose 391 mg/dL (74-106); Potassium 4.3 mmol/L (3.5-5.1); Sodium Level 135 mmol/L (136-145)
[2019-03-05] MEDS: Insulin Lispro 100 UNIT/ML INSULN.PEN SC (06:47)
[2019-03-05 06:55] LABS: Bedside Glucose 388 mg/dL (70-110)
[2019-03-05] MEDS: Aspirin E.C. 81 MG Tablet PO (08:05)
[2019-03-05] MEDS: Tolterodine Tartrate 2 MG CAP.SA PO (08:06)
[2019-03-05] MEDS: ARIPiprazole 10 MG Tablet PO (08:06)
[2019-03-05] MEDS: DULoxetine Hcl 60 MG Capsule PO (08:06)
[2019-03-05] MEDS: Losartan Potassium 25 MG Tablet 12.5 MG PO (08:06)
[2019-03-05] MEDS: Loratadine 10 MG Tablet PO (08:06)
[2019-03-05 08:07] VITALS: PULSE 78
[2019-03-05] MEDS: APIXABAN 5 MG TABLET PO (08:07)
[2019-03-05] MEDS: Pantoprazole Sodium 20 MG Tablet PO (08:07)
[2019-03-05] MEDS: Metoprolol Tartrate 50 MG Tablet PO (08:07)
[2019-03-05 08:24] VITALS: BP 104/75; PULSE 71; RESP 16; TEMP 36.6; O2SAT 97
--- NOTE | 2019-03-05 09:53 | PCM.DC ---
- Discharge Diagnoses Current Active Problems: Current Active and Chronic Problems (Last Reviewed 03/02/19 @ 12:33 by Ramana Becker MD) Dysphasia (Acute) UTI (urinary tract infection) (Acute) Hyperglycemia (Acute) CVA (cerebral vascular accident) (Acute) You will use the following diet at home:: Cardiac Discharge Activity: Return to Normal Activity, May not drive while taking narcotic pain medications. Allergies/Adverse Reactions: Allergies No Known Allergies Allergy (Verified 03/02/19 08:42) Medications to take at Discharge Aspirin [Aspirin EC] 81 mg PO DAILY 12/26/17 sodium chloride 0.65 % nasal spray aerosol 2 spray INTRANASAL Q1-4H PRN #104 ml 03/18/18 albuterol sulfate HFA 90 mcg/actuation aerosol inhaler 1 puff INHALATION Q6H PRN #8.5 g 07/21/18 losartan 25 mg tablet 12.5 mg PO DAILY #90 tab 07/21/18 ibuprofen 800 mg tablet 800 mg PO TID-QID PRN 09/04/18 omeprazole 20 mg capsule,delayed release 20 mg PO QDAY #90 cap 10/06/18 cetirizine 10 mg tablet 10 mg PO DAILY #30 tab 11/10/18 aripiprazole 10 mg tablet 10 mg PO DAILY #90 tab 01/01/19 Meloxicam 0.5%,Gabapentin 6%, Lidocaine 2%, Prilocaine 2% SUBDERMAL 01/05/19 cyclobenzaprine 10 mg tablet 5 mg PO TID PRN PRN #30 tab 02/02/19 Apixaban [Eliquis] 5 mg PO BID 03/02/19 Duloxetine HCl 60 mg PO DAILY 03/02/19 Fluticasone Propionate [Flonase Allergy Relief] 2 spray INTRANASAL DAILY 03/02/19 Glipizide [Glipizide ER] 10 mg PO DAILY 03/02/19 Metoprolol Tartrate [Lopressor (beta wally)] 50 mg PO BID 03/02/19 Multivitamin with Folic Acid [Cvs One Daily Essential Tablet] 400 mcg PO DAILY 03/02/19 Potassium Chloride 20 meq PO QDAY 03/02/19 Sitagliptin Phos/Metformin HCl [Janumet Xr 50-1,000 mg Tablet] 1 tab PO DAILY 03/02/19 Solifenacin Succinate [Vesicare] 5 mg PO DAILY 03/02/19 insulin glargine (U-100) 100 unit/mL (3 mL) subcutaneous pen 65 unit SC DAILY #15 ml 03/02/19 Atorvastatin Calcium [Lipitor] 40 mg PO QHS #90 tab 03/05/19 The following prescriptions were given: Atorvastatin Calcium [Lipitor] 40 mg PO QHS #90 tab Transmission Status: Pending to [facility]/pharmacy #[id number] Primary Care Physician: Obed Scott MD [Primary Care Provider] - Test Results: Test results from this visit will be discussed in further detail at your follow-up appointment, if applicable. Please Follow Up With: Obed Scott MD Please Follow Up With: Ramila Paz MD When: in 2-4weeks Proposed Discharge Date: 03/05/19
--- NOTE | 2019-03-05 09:56 | PCM.DC.SUM ---
Discharge Date and Diagnosis - Problem List Patient Problems: Active and Suspected Problems (Last Reviewed 03/02/19 @ 12:33 by Ramana Becker MD) Dysphasia (Acute) UTI (urinary tract infection) (Acute) Hyperglycemia (Acute) CVA (cerebral vascular accident) (Acute) Date of Admission: 03/02/19 Date of Discharge: 03/05/19 - Primary Discharge Diagnosis Active and Suspected Problems (Last Reviewed 03/02/19 @ 12:33 by Ramana Becker MD) Dysphasia (Acute) UTI (urinary tract infection) (Acute) Hyperglycemia (Acute) CVA (cerebral vascular accident) (Acute) - Secondary Discharge Diagnosis Chronic Problems (Last Reviewed 03/02/19 @ 12:33 by Ramana Becker MD) Back pain (Chronic) Bilateral knee pain (Chronic) Depression with anxiety (Chronic) Paroxysmal atrial flutter (Chronic) Hyperlipidemia (Chronic) Essential (primary) hypertension (Chronic) Type 2 diabetes mellitus (Chronic) 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 No acute abnormality is seen. N.B. : The above information has been verbally conveyed by Steve Holloway to Arlen Barrientos on 03/02/2019 08:35:47 (ET). Electronically Signed: Steve Holloway, at 8:36 EDT , Service support , ADDENDUM: 03/02/19 0843 IMPRESSION: Chronic involutional changes of the brain. No acute abnormality is seen. N.B. : The above information has been verbally conveyed by Steve Holloway to Arlen Barrientos on 03/02/2019 08:35:47 (ET). Electronically Signed: Steve Holloway, at 8:36 EDT , Service support , Chest X-Ray 03/02/19 08:18 IMPRESSION: No acute abnormality is seen. Electronically Signed: Steve Holloway, at 9:16 EDT , Service support , Brain MRI 03/02/19 10:54 IMPRESSION: 1. Acute/subacute infarct of the cortex of the gyrus of the posterior left parietal lobe. 2. Chronic infarction left hemisphere of the cerebellum in the left occipital lobe. 3. Mild diffuse cerebral atrophy and microangiopathic gliosis from chronic hypertension or metabolic disease. Electronically Signed: Milan Guadalupe MD at 12:38 EDT Tel , Service support , ADDENDUM: 03/02/19 1255 IMPRESSION: 1. Acute/subacute infarct of the cortex of the gyrus of the posterior left parietal lobe. 2. Chronic infarction left hemisphere of the cerebellum in the left occipital lobe. 3. Mild diffuse cerebral atrophy and microangiopathic gliosis from chronic hypertension or metabolic disease. N.B. : The above information has been verbally conveyed by Milan Guadalupe MD to Clare Sanford [phone], on 03/02/2019 12:48:48 (ET). Electronically Signed: Milan Guadalupe MD at 12:38 EDT Tel , Service support , Head/Neck CTA 03/02/19 12:27 IMPRESSION: Calcific plaque at the carotid bifurcations bilaterally with no significant stenosis. Electronically Signed: Steve Holloway, at 14:16 EDT , Service support , Operations: None Summary of Care Provided: The patient is a 63 year old F [] Patient Problems: Active and Suspected Problems (Last Reviewed 03/02/19 @ 12:33 by Ramana Becker MD) Dysphasia (Acute) UTI (urinary tract infection) (Acute) Hyperglycemia (Acute) CVA (cerebral vascular accident) (Acute) Objective: GENERAL: cooperative HEENT: Atraumatic; moist oral mucosa EYES; Anicteric, Normal Conjunctiva NECK; supple, normal thyroid, RESPIRATORY: Diminished to auscultation CARDIOVASCULAR: Regular S1 S2, GI: soft, non-tender, normoactive bowel sounds, : No Renal angle tenderness; EXTREMITIES: No edema, no clubbing, MUSCULOSKELETAL: No Joint Tenderness; SKIN: No Rash PSYCH; Normal affect Patient is a 63-year-old lady with history of paroxysmal atrial fibrillation, previous CVA diabetes mellitus type 2 hypertension brought to the emergency department with slurred speech. Patient also had abnormal urinalysis on admission 1. Suspected acute CVA ~Presented with slurred speech. Admitted to monitored bed, placed on every 4 neurochecks, ordered MRI of the head, CTA of the neck 2D echo patient is already on antiplatelet did continue in consultation placed to neurology.I maging studies obtained as part of patient's management demonstrated. Acute/subacute infarct of the cortex of the gyrus of the posterior left parietal lobe.. Chronic infarction left hemisphere of the cerebellum in the left occipital lobe. Patient did improve with therapy with plans for patient to continue treatment as outpatient with speech/occupational/physical therapy. 2. Acute cystitis E. coli patient was treated appropriately with Rocephin for 3 days 3. Essential hypertension ~Patient blood pressure within permissive level did continue with home meds 4. Dyslipidemia On atorvastatin dose was increased from 20 mg to 40 mg on discharge 5. Diabetes mellitus type 2 with uncontrolled blood glucose levels ~Patient is on long-acting insulin did continue also added scheduled pre-meal insulin in addition to correction factor sliding scale 6. 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 Paroxysmal atrial fibrillation ?Rate controlled. Patient is on systemic anticoagulation with Eliquis continued 8. Coronary artery disease with previous stent placement ~Is on recommended medications 9. Tobacco dependence counseled on cessation, ~offered nicotine patch for tobacco cravings 10. DVT prophylaxis: Patient on Eliquis, no additional measures warranted - Physical Exam Vital Signs Temp Pulse Resp BP Pulse Ox 97.9 F 71 16 104/75 97 03/05/19 08:24 03/05/19 08:24 03/05/19 08:24 03/05/19 08:24 03/05/19 08:24 Oxygen Flow Rate (L/min) 2 Oxygen Delivery Method Room Air Weight: 88.2 kg Body Mass Index (BMI) 29.5 Finger Stick Blood Glucose 351 Intake and Output for Last 24 Hours 03/03/19 03/04/19 03/05/19 23:59 23:59 23:59 Intake Total 800 / 800 1390 / 1390 80 / 80 Balance 800 / 800 1390 / 1390 80 / 80 Microbiology Past 72 Hours 03/02/19 09:18 Urine Culture - Final Urine, Clean Catch Presumptive E. coli Laboratory Tests Past 24 Hrs 03/05/19 03/05/19 05:02 05:02 WBC 8.3 RBC 4.64 Hgb 14.7 Hct 43.1 MCV 92.9 MCH 31.7 MCHC 34.1 RDW Std Deviation 44.1 H RDW Coeff of Zakiya 13.0 Plt Count 242 MPV 10.9 Immature Gran % (Auto) 1.000 H Neut % (Auto) 60.5 Lymph % (Auto) 26.7 [place] % (Auto) 10.0 Eos % (Auto) 1.1 Baso % (Auto) 0.7 Absolute Neuts (auto) 5.0 Absolute Lymphs (auto) 2.21 Nucleated RBC % 0 Sodium 135 L Potassium 4.3 Chloride 101 Carbon Dioxide 27.0 Anion Gap 7 BUN 21 H Creatinine 1.04 H Estim Creat Clear Calc 55.13 Est GFR (MDRD) Af Amer 68 Est GFR (MDRD) Non-Af 57 L BUN/Creatinine Ratio 20.2 H Glucose 391 H Calcium 9.2 POC Glucose 03/05/19 03/04/19 03/04/19 06:46 21:04 16:20 POC Glucose 388 H 304 H 300 H 03/04/19 11:18 POC Glucose 342 H Discharge Diet: Low fat/ Low Cholesterol Discharge Activity: Return to Normal Activity, May not drive while taking narcotic pain medications. Home Medications: Medications to take at Discharge Aspirin [Aspirin EC] 81 mg PO DAILY 12/26/17 sodium chloride 0.65 % nasal spray aerosol 2 spray INTRANASAL Q1-4H PRN #104 ml 03/18/18 albuterol sulfate HFA 90 mcg/actuation aerosol inhaler 1 puff INHALATION Q6H PRN #8.5 g 07/21/18 losartan 25 mg tablet 12.5 mg PO DAILY #90 tab 07/21/18 ibuprofen 800 mg tablet 800 mg PO TID-QID PRN 09/04/18 omeprazole 20 mg capsule,delayed release 20 mg PO QDAY #90 cap 10/06/18 cetirizine 10 mg tablet 10 mg PO DAILY #30 tab 11/10/18 aripiprazole 10 mg tablet 10 mg PO DAILY #90 tab 01/01/19 Meloxicam 0.5%,Gabapentin 6%, Lidocaine 2%, Prilocaine 2% SUBDERMAL 01/05/19 cyclobenzaprine 10 mg tablet 5 mg PO TID PRN PRN #30 tab 02/02/19 Apixaban [Eliquis] 5 mg PO BID 03/02/19 Duloxetine HCl 60 mg PO DAILY 03/02/19 Fluticasone Propionate [Flonase Allergy Relief] 2 spray INTRANASAL DAILY 03/02/19 Glipizide [Glipizide ER] 10 mg PO DAILY 03/02/19 Metoprolol Tartrate [Lopressor (beta wally)] 50 mg PO BID 03/02/19 Multivitamin with Folic Acid [[facility] One Daily Essential Tablet] 400 mcg PO DAILY 03/02/19 Potassium Chloride 20 meq PO QDAY 03/02/19 Sitagliptin Phos/Metformin HCl [Janumet Xr 50-1,000 mg Tablet] 1 tab PO DAILY 03/02/19 Solifenacin Succinate [Vesicare] 5 mg PO DAILY 03/02/19 insulin glargine (U-100) 100 unit/mL (3 mL) subcutaneous pen 65 unit SC DAILY #15 ml 03/02/19 Atorvastatin Calcium [Lipitor] 40 mg PO QHS #90 tab 03/05/19 Following Prescrptions Were Given to Patient: Atorvastatin Calcium [Lipitor] 40 mg PO QHS #90 tab Transmission Status: Pending to [facility]/pharmacy #[id number] Primary Care Physician: Obed Scott MD [Primary Care Provider] - Please Follow Up With: Obed Scott MD Please Follow Up With: Ramila Paz MD When: in 2-4weeks Disposition: Home Minutes spent on discharge:: 35 Patient Condition:: Stable Medical Necessity - Tobacco Use Smoking Status: Current some day smoker Tobacco Use: Cigarettes Meaningful Use Info Meaningful Use Diagnoses (Choose all that apply): Ischemic CVA - CVA Therapy Assessed for PT,OT and/or ST?: Yes - Ischemic Stroke Antithrombotic order at d/c?: Yes Dx of Atrial fib/flutter?: Yes Anticoagulant at discharge?: Yes Statins at discharge?: Yes Primary Dx Acute Ischemic CVA?: Yes IV tPA ordered during stay?: No Reason IV t-PA not ordered: Treatment not Indicated Code Visit Inpatient E&M: 53533 Disch Hosp
--- NOTE | 2019-03-05 10:18 | CASEMGMT ---
Speech and OT are recommending OP therapy for pt at this time. This ANA CM to room to discuss with pt and family member and pt is agreeable to OP therapy at [facility] at this time for OT and ST. Original to pt and copy faxed to [facility] at this time with pt facesheet. Daughter would also like to be contacted regarding therapy appts and pt is agreeable. This ANA COSTELLO wrote this on pt facesheet prior to faxing at this time. Pt/family voice no further questions/concerns/needs at this time. [place] ANA COSTELLO
--- NOTE | 2019-03-05 10:24 | CASEMGMT ---
ABRAM noted in Speech Therapy's note patient had some concerns about getting to appts as she will not be able to drive for a little while. ABRAM met with patient. SW gave her the hospital van transportation information and [facility]'s transportation assistance information. SW also then completed Healthcare POA and Healthcare LW with patient. Copies were made and given to patient along with originals. A copy of each was also placed in her chart. Jumana NELSON MSW
--- NOTE | 2019-03-05 10:36 | PCM.PN.NEU ---
Patient Problems: Active and Suspected Problems (Last Reviewed 03/02/19 @ 12:33 by Ramana Becker MD) Dysphasia (Acute) UTI (urinary tract infection) (Acute) Hyperglycemia (Acute) CVA (cerebral vascular accident) (Acute) Subjective: No issues overnight. Care discussed with the hospitalist team. Patient likely to be discharged today. - Physical Exam General: Alert HEENT: Normocephalic Neck: Supple Lungs: Normal air movement Cardiovascular: Normal S1, Normal S2 Abdomen: Bowel Sounds Present Extremities: No cyanosis Neurological: - - Conscious, alert, AOA x3, CN II through XII grossly intact, power 5 x 5 left upper and lower extremities, 5 x 5 proximal right upper and lower extremities, mild handgrip weakness of the right upper extremity, no sensory loss, no cerebellar signs, gait deferred, possible mild aphasia, reflexes + B/L B/S/T/K/A, NIHSS 1 at present, mRS 0 at baseline Psych/Mental Status: Normal Affect Vital Signs Temp Pulse Resp BP Pulse Ox 97.9 F 71 16 104/75 97 03/05/19 08:24 03/05/19 08:24 03/05/19 08:24 03/05/19 08:24 03/05/19 08:24 Oxygen Flow Rate (L/min) 2 Oxygen Delivery Method Room Air Weight: 88.2 kg Body Mass Index (BMI) 29.5 Finger Stick Blood Glucose 351 Intake and Output for Last 24 Hours 03/03/19 03/04/19 03/05/19 23:59 23:59 23:59 Intake Total 800 / 800 1390 / 1390 80 / 80 Balance 800 / 800 1390 / 1390 80 / 80 Microbiology Past 72 Hours 03/02/19 09:18 Urine Culture - Final Urine, Clean Catch Presumptive E. coli Laboratory Tests Past 24 Hrs 03/05/19 03/05/19 05:02 05:02 WBC 8.3 RBC 4.64 Hgb 14.7 Hct 43.1 MCV 92.9 MCH 31.7 MCHC 34.1 RDW Std Deviation 44.1 H RDW Coeff of Zakiya 13.0 Plt Count 242 MPV 10.9 Immature Gran % (Auto) 1.000 H Neut % (Auto) 60.5 Lymph % (Auto) 26.7 [place] % (Auto) 10.0 Eos % (Auto) 1.1 Baso % (Auto) 0.7 Absolute Neuts (auto) 5.0 Absolute Lymphs (auto) 2.21 Nucleated RBC % 0 Sodium 135 L Potassium 4.3 Chloride 101 Carbon Dioxide 27.0 Anion Gap 7 BUN 21 H Creatinine 1.04 H Estim Creat Clear Calc 55.13 Est GFR (MDRD) Af Amer 68 Est GFR (MDRD) Non-Af 57 L BUN/Creatinine Ratio 20.2 H Glucose 391 H Calcium 9.2 POC Glucose 03/05/19 03/04/19 03/04/19 06:46 21:04 16:20 POC Glucose 388 H 304 H 300 H 03/04/19 11:18 POC Glucose 342 H Medical Necessity - Tobacco Use Smoking Status: Current some day smoker Tobacco Use: Cigarettes Assessment/Plan All Active Problems (Last Reviewed 03/02/19 @ 12:33 by Ramana Becker MD) Dysphasia (Acute) UTI (urinary tract infection) (Acute) Hyperglycemia (Acute) CVA (cerebral vascular accident) (Acute) URI (upper respiratory infection) (Resolved) Sinusitis (Resolved) History of coronary artery stent placement (Resolved 04/06/11) DKA (diabetic ketoacidoses) (Resolved) UTI (urinary tract infection) (Resolved) The patient is a 63 year old F PMH HTN, HLD, DM, history of stroke in 2010, CAD status post stent, PAF not on anticoagulation (was on Pradaxa in 2013 and on apixaban later on per documentation but on family/patient review she denies being on any anticoagulation at present), depression/anxiety admitted with right weakness and speech disturbances. History is obtained from the patient, family as well as medical records/documentation. Per son she was normal last night 03/01/2019 but when she woke up this morning she had difficulty in getting her words out and also had weakness in the right side. Per ED documentation NIHSS was 1 on admission. Patient was not a TPA candidate. Per son and daughter at present she is probably not on apixaban for A. fib, and is only on aspirin. Patient and family are a poor historian. Patient lives with her son, denies any frequent falls, does not use cane or walker to ambulate, does drive and does not need any assistance for her ADLs. MRI brain done on admission reported to show acute/subacute left posterior parietal small infarct. CTA head/neck reported to show less than 50% stenosis in the bilateral ICA and no hemodynamically significant stenosis or occlusion. On admission patient was also found to have UTI. Impression Acute/subacute small left posterior parietal infarct Chronic left occipital infarct Plan ?[id number] score of 5, on apixaban 5 mg p.o. twice daily. Bleeding risks discussed in detail ?Lipitor 40 mg p.o. nightly ?MRI brain and CT angiogram head/neck reviewed ?TTE-EF 40%, mildly enlarged LA, no PFO ?[id number] LDL-134 ?Better DM control and management. Will defer to hospitalist/PCP ?Endocrinology consult ?Cardiology consult ?Stroke risk factors discussed and stroke education provided ?Patient counseled to stop smoking ?Long-term goal blood pressure less than 130/80 mmHg and goal HbA1c less than 7% ?PT/OT/ST ?Fall precautions ?GI/DVT prophylaxis ?Further medical management/UTI management per hospitalist team ?Follow-up with neurology as outpatient in 3 to 4 weeks ?Please call with questions if any ?Thank you for allowing us to participate in patient's care and management This note has been generated using [employer] dictation software. It may contain incorrect words, spellings and punctuation's which were not noted in the review of the note prior to signing.
--- NOTE | 2019-03-05 11:19 | CASEMGMT ---
Pt to be sent home on Eliquis, which she has had in the past, but has not been taking recently per her PCP. Eliquis script was e-scribed to [facility] and per pharmacology teacher at this time, pt has no co-pay for Eliquis at this time. Rose EPREZ aware as she heads into room to discharge pt at this time. Selam PEREZ CM
--- NOTE | 2019-03-08 13:58 | CASEMGMT ---
ANA COSTELLO Discharge Follow-Up Phone Call. Lace:??11?Strata: 3 Discharge Date:? Adm Dx:???TIA, UTI Call to pt to inquire about how?she has been doing since being discharged from the hospital.??Pt stated I'm doing fine. She states she was able to get her prescriptions and denies having any questions about any of her medications. She states she is aware of the follow-up appts and has no questions/concerns about them or the discharge instructions. She states she has not set up the appts for ST/OT @ [facility] yet, but states, I'm going to. ANA COSTELLO thanked pt for choosing [facility].? DGiauqu BSN ANA COSTELLO
== END 2019-03-05 12:12 | disposition home or self-care (01) | DRG 66 ==
LOC: ED 08:23 → PCU 10:04
PROVIDERS: Psychiatry & Neurology Neurology; Admitting Provider Internal Medicine; Emergency Provider Emergency Medicine; Family Provider Internal Medicine; PCP Internal Medicine; Referring Provider Internal Medicine; Visit Provider Internal Medicine
DX: I63.9 Cerebral infarction, unspecified (principal); I10 Essential (primary) hypertension; E78.5 Hyperlipidemia, unspecified; E11.65 Type 2 diabetes mellitus with hyperglycemia; I48.0 Paroxysmal atrial fibrillation; I25.10 Atherosclerotic heart disease of native coronary artery without angina pectoris; I69.311 Memory deficit following cerebral infarction; Z95.5 Presence of coronary angioplasty implant and graft; Z79.4 Long term (current) use of insulin; R29.701 NIHSS score 1; Z79.82 Long term (current) use of aspirin; F17.210 Nicotine dependence, cigarettes, uncomplicated; R47.81 Slurred speech; B96.20 Unspecified Escherichia coli [E. coli] as the cause of diseases classified elsewhere
CPT/HCPCS: 36415; 70450; 70496; 70498; 70551; 71045; 80048; 80061; 81001; 82009; 82962; 83036; 83605; 83735; 84484; 85025; 85610; 85730; 87086; 87088; 87186; 92507; 92523; 92526; 92610; 93005; 93306; 94762; 97162; 97166; 97530; 99285; 99406; J7030; Q9957; Q9967; A4216; C8929

== ENCOUNTER → 2019-04-30 14:36 | Outpatient (CLI) | payer OTHER, MEDICAID, SELFPAY ==
[2019-04-30 13:32] VITALS: BMI 29.5
[2019-04-30 15:34] LABS: Mucous, Urine 0 SEEN /hpf (<or=2+)
[2019-04-30 16:31] LABS: Color, Urine Yellow (Yellow); Glucose, Dipstick 1000 mg/dl (Normal); Ketone-Dipstick Negative (Negative); Leukocyte Esterase-Dipstick 25 /ul (Negative); Nitrite-Dipstick Positive (Negative); Occult Blood-Urine 10 /ul (Negative); Protein-Dipstick 15 mg/dl (Negative); Specific Gravity, Urine 1.015 (1.002-1.030); Urine Bilirubin Dipstick Negative (Negative); Urine Clarity Cloudy (Clear); Urine Urobilinogen Normal (Normal)
[2019-04-30 18:22] LABS: Bacteria RARE /hpf (None Seen); Red Blood Cells-Urine 0-5 SEEN /hpf (0-5); Squamous Epithelial Cells - UA 0-5 SEEN /hpf (5-10); White Blood Cells 10-25 SEEN /hpf (0-5)
== END ==
PROVIDERS: Family Provider Internal Medicine; PCP Internal Medicine; Referring Provider Nurse Practitioner Family; Visit Provider Nurse Practitioner Family
DX: R30.0 Dysuria (principal)
CPT/HCPCS: 81001; 87086; 87088; 87186

== ENCOUNTER 2019-05-21 11:30 | Outpatient (RCR) | payer MEDICARE, OTHER, MEDICAID, SELFPAY ==
[2019-03-16 09:53] VITALS: BMI 29.5
--- NOTE | 2019-03-23 15:21 | HP.OTEVAL ---
Patient's Visit Information WINIFRED ROUSE is a 63 year old F, referred to Occupational Therapy by Ramana Becker MD, with a diagnosis of stroke. Date of Evaluation: 03/23/19 Occupational Therapist: Corrina Almanza - Subjective Subjective: Pt seen for initial occupational therapy evaluation for stroke 2-3 wks ago. Pt has hx of stroke 2010 or 2012 she can't remember. Pt work hx of working with [employer] Hasn't worked for last few years. Pt states numbness and tingling R hand up to elbow and L hand. Pt R hand dominent. Son lives with her. Lives in ranch 1 story house 2 steps 2 handrails. Pt was cane and walker available but indep w AMB. Independent with BADLs/IADLs. Bathroom contains tub/shower w/ HHS, shower chair, std toilet seats. Pt's son lives in basement available to assist some but son works during day so pt on her own during day. Friend assist with grocery shopping by driving pt. Pt able to carry her groceries into house and put away on her own. Pt has dog and cats to care for at home. Son handles dog food bags, pt able to carry cat food bags on her own. Pt alert and oriented x3 to place, date, time. - Pain R wrist 4 Pain Intensity Range: 4, 7 - Objective Objective/Observation: nervous regarding OT evaluation, decreased coordination and strength of R hand. - ROM Wrist: R 55'/52', L 60'/90' ROM Comments: After Parafin Bath R AROM wrist 63'/73' - Strength Spool Worker: R 30#, L 55# Lateral Pinch: R 13#, L 18# Tripod Pinch: R 10#, L 14# - Edema Other: No swelling - Sensation Other Location: R wrist monofilament 2.83 (normal range). Sensation Comments: Increased numbness and tingling R hand up to elbow. Monofilament R hand 2.83 (normal range) 1st, 2nd, 5th digit. R hand monofilament 3.22 digits 3 and 4. - Nine Hole Peg Right: 39.2 seconds Left: 29.7 seconds Comments: R hand dominent - Quick DASH-Disab of Arm,Shoulder& Hand Quick DASH Score: 88.6350 - Goals Goal:: Pt will progress w/ R hand speech teacher strength by 20# to assist with opening variety of containers independently by d/c from OT services. Goal:: Pt will progress w/ AROM R wrist flexion by 15' to assist with BADL tasks independently by d/c from OT services. Goal:: Pt will demo no pain greater than 1/10 with movement of R hand/wrist by d/c from OT services. Goal:: Pt will be able to cut food independently using R hand using adaptive techniques as needed by d/c from OT serivces. Pt will be able to write first and last name legibly using adaptive techniques or compensatory strategies as needed by d/c from OT services. Goal:: Pt will progress w/ 9 hole peg test R hand by 5 seconds at d/c from OT services. Goal:: Pt will be educated on R UE HEP with good understanding and demo 100%x - Rehabilitation General Assessment: Pt demo decreased R hand strength, coordination and AROM secondary to recent stroke indicating a need for skilled OT interventions to increase her fine motor coordination of R hand to assist w/ BADLs and functional living tasks. She would benefit from direct occupational therapy services to increase AROM R wrist, decrease pain of R UE and increase her R UE strength, with HEP to increase pts quality of life and ability to use R hand normal again 1-2x/wk 6wks Rehabilitation Potential: Good - Anticipated Interventions Anticipated Interventions: A/AAROM/PROM, Strengthening, Modalities, Orthoses, Joint Protection/Energy Conservation, Fine Motor Coord/Loki, Neuro Reeducation, ADL Training, Education re assistive Equipment, Education re Diagnosis, Education re Self Massage Techniques, Education re Correct Donning Tech,Care&Wearing Sched Comp Garments, Home Program - Visit Plan Frequency: 1-2x /Week Duration: 6 Weeks General Plan: increase R hand strength, coordination, AROM, decrease pain R UE, educate on HEP to increase pt's qualilty of life and return to normal use of R UE. TEXT: Thank you for the opportunity to evaluate your patient. For Medicare and Medicare HMO plans, please review the plan of care and approve it. It will need to be FAXED BACK to us at [phone] for Medicare purposes. Please let me know if there are questions or concerns regarding this plan of care. Physician Signature: Date:
--- NOTE | 2019-03-29 09:56 | HP.SP.AD_ITS ---
History - History Date of Eval: 03/23/19 Medical Diagnosis (from RX): CVA Date of Onset of Diagnosis: 03/02/19 Previous speech therapy: No Other Relevant Medical History/Diagnoses/Surgery: Heart attack, previous CVA 2010 Smoking Status: Current some day smoker Hx Smoking: Yes Hx Tobacco Use: Yes - Pain Is pain an issue with your current prescribed condition?: No - Personal Occupation: disability after heart attack in 2010 Right Hearing Abillity: Normal Left Hearing Abillity: Normal Patient Allergies - Allergies Allergies No Known Allergies Allergy (Verified 03/02/19 08:42) Objective Cog/Ling/Com - Test Administered Yrjkwnirb-Jyftooowsy-Ppmgqmjpydspa Assessment Administered: Yes Facvnqeue-Rwgsvbuafw-Codndwqqunqmh Assessment: Cognitive ? Linguistic skills were evaluated using patient/family interview, skilled observation and informal evaluation through tasks completed by the patient. - Orientation Orientation: Person, Place, Date, Birthdate, Medical Diagnosis - Answer Yes/No Questions Simple: WNL Complex: WNL - Follows Commands Complex: WNL - Naming Responsive naming: WNL Naming in categories: WNL [place]: WNL - Organization Identifying which does not belong: WNL - Information Gathering Information Gathering: WNL - Cause & Effect Cause & Effect: WNL - Problem Solving Simple: Mild Complex: Mild - Judgement & Reasoning Judgement/Reasoning: Mild Cognitive Linguistic Comments - Comments Medications Daughter is completing medications on a monthly basis since new CVA. She reports that she has difficulty with putting pills in small spaces. She is comfortable with daughter continuing to do medications. CLQT - CLQT CLQT Administered: Yes CLQT: Cognitive Linguistic Quick Test (CLQT) is a criterion - referenced assessment designed for adults between the ages of 18 and 89 with known or suspected neurological dysfuntions. The CLQT is to assess strength and weaknesses in five cognitive domains. Severity ratings are within normal limits, mild, moderate, severe deficits. The subtests are as follows: Date: 03/29/19 - Attention Attention: Mild - Memory Memory: Mild - Executive Functions Executive Functions: WNL - Language Language: WNL - Visuospatial Skills Visuospatial Skills: Mild - CLQT Comments Analysis The areas that were the most difficult for the patient were design memory and symbol cancellation. In both of those subtests, she made mistakes that were visually very similar. She reported that she does not have any new memory deficits and that her skills are all the same except mild anomia. Plan - Plan Plan: Speech therapy is warranted for mild anomia. Per the patient, all other skills are at baseline since her previous stroke. Therapy is recommended short term to faciliate functional communication. - Recommendations Treatment Warranted: Yes - Frequency Frequency: 1x/Week Duration: 6 Weeks Visits in this POC: 6 - Prognosis Prognosis: Good - Goals that are Established: Determination:: Goals will be added/modified as deemed necessary and appropriate. Therapy will be discontinued when results of re-evaluation indicate therapy is no longer needed or lack of progress has been documented. - Goal #1-5 Goal #1: Amalia will be educated on and then utilize word finding strategies on 4/5 trials during a therapy session. Education - Patient has Indicated that the Following Identified Educational Needs: Cognitively Impaired - Patient Instruction Patient Education: Diagnosis, Treatment Plan, Goals Person Taught: Patient Teaching Method: Discussion Response to teaching: Verbalize understanding
--- NOTE | 2019-04-21 13:13 | HP.SP.DC ---
ST Discharge Summary - Discharged: Discharge: Amalia Love is discharged from speech therapy as of April 20, 2019 as all of her goals have been met. She was evaluated on 03/23/19 following her CVA. Her main goal was to use word finding strategies to reduce anomia as this was her only deficits following her CVA per the patient. She had two sessions of therapy. The first session she was provided with a list of 10 strategies even though she had minimal word finding deficits. The second session she had no anomia episodes. She is discharged with goals. Cognitive testing with the Cognitive Linguistic Quick Test had scores that were within normal limits were language and executive function. Mild range was for the subtests of attention, memory, and visuospatial skills. The patient declined to work on these skills as she stated that deficits are not new as she has a previous CVA. The patient is in agreement with discharge. A copy of this plan of care will be sent to her referring physician.
--- NOTE | 2019-05-04 13:40 | HP.OTREVAL ---
Ramana Becker MD, It has been my pleasure to treat AMALIA ROUSE over the last 10 visits for stroke. Please see the progress note below for an update on the occupational therapy plan of care! Subjective: Arrived and noted that right wrist continues to hurt all the time. She noted that she feels she is 30% back to PLOF. Objective/Function: Completed new measurements on this date of 04/03/19 and results as follows: ROM: - flexion: R 0-51, L WFL. - extentsion: R 0-45, L WFL. - supination R WFL, L 0-69. Strength: - flour inspector R 21 , L 48. - lateral : R 4, L 9. - tripod: R 2, L 6. - pincer: R 2, L 5. 9 hole pegboard test: R 30.10 s. L 25.66 s. monofilament touch test: R hand: 2nd 2.83, 3rd 2.83, 4th 2.83, 5th 2.83, thumb 3.22. L hand 2nd 2.83, 3rd 3.22, 4th 3.22, 5th 3.22, thumb 2.83 Plan Frequency: 1-2x /Week Duration: 3 Weeks Visits in this POC: 13-16 Plan: Amalia noted she is using putty exercises and has been completing picking up coins. She pain is persistent but does feel OT has helped. She would benefit from continue OT to address strength and stability concerns of left wrist for 1-2x wrists for the next 3 weeks to address strengthening with PRE through continue intrinsic strength and focus on BTE, fluidotherapy for desensitization techniques, and general ability to completed functional shaun of right hand for ADL/IADls. Goals - Goals Goal:: Pt will progress w/ R hand flour inspector strength by 20# to assist with opening variety of containers independently by d/c from OT services. Goal:: Pt will progress w/ AROM R wrist flexion by 15' to assist with BADL tasks independently by d/c from OT services. Goal:: Pt will demo no pain greater than 1/10 with movement of R hand/wrist by d/c from OT services. Goal:: Pt will be able to cut food independently using R hand using adaptive techniques as needed by d/c from OT serivces. Pt will be able to write first and last name legibly using adaptive techniques or compensatory strategies as needed by d/c from OT services. Goal:: Pt will progress w/ 9 hole peg test R hand by 5 seconds at d/c from OT services. Goal:: Pt will be educated on R UE HEP with good understanding and demo 100%x Anticipated Interventions Anticipated Interventions: A/AAROM/PROM, Strengthening, Modalities, Orthoses, Joint Protection/Energy Conservation, Fine Motor Coord/Loki, Neuro Reeducation, ADL Training, Education re assistive Equipment, Education re Diagnosis, Education re Self Massage Techniques, Education re Correct Donning Tech,Care&Wearing Sched Comp Garments, Home Program Please do not hesitate to contact me at [phone] by phone or if you have questions or concerns regarding this new plan of care! Sincerely, Amira Dubois, OTR/L
== END 2019-05-21 19:00 | disposition home or self-care (01) ==
LOC: OT 11:30
PROVIDERS: Family Provider Internal Medicine; PCP Internal Medicine; Visit Provider Internal Medicine
DX: I63.532 Cerebral infarction due to unspecified occlusion or stenosis of left posterior cerebral artery (principal)
CPT/HCPCS: 92507; 92523; 97110; 97165; 97166; 97530

== ENCOUNTER → 2019-06-21 11:03 | Outpatient (CLI) | payer MEDICARE, MEDICAID, SELFPAY ==
[2019-06-21 10:56] VITALS: BMI 29.5
--- NOTE | 2019-06-21 11:03 | RAD_ITS ---
STUDY: X-RAY - LEFT SHOULDER REASON FOR EXAM: Chronic flareups. TECHNIQUE: 4 view(s) of the shoulder. COMPARISON: None. FINDINGS: There is a small marginal osteophyte of the humeral head without joint space narrowing of the glenohumeral articulation. There is acromioclavicular arthrosis with undersurface osteophytes. Normal acromion. Normal humeral head and visualized proximal humerus. There are multiple intra-articular bodies in the anterior superior glenohumeral articulation also present on the chest radiograph 03/02/2019. Normal visualized pulmonary apex. RAD/Shoulder min 2 Views IMPRESSION: Acromioclavicular arthrosis. Glenohumeral intra-articular bodies. Electronically Signed: Korey Francois MD at 13:16 EST Tel , Service support ,
== END ==
PROVIDERS: Family Provider Internal Medicine; PCP Internal Medicine; Referring Provider Physician Assistant; Visit Provider Physician Assistant
DX: M25.512 Pain in left shoulder (principal)
CPT/HCPCS: 73030

== ENCOUNTER → 2019-12-07 13:22 | Outpatient (CLI) | payer MEDICARE, SELFPAY ==
[2019-12-07 13:02] VITALS: BMI 29.5
[2019-12-07 15:39] LABS: Hematocrit 48.7 % (37-47); Hemoglobin 15.9 g/dL (12.0-15.0); Mean Corp Hgb Conc 32.6 g/dL (32-36); Mean Corpuscular Hgb 30.9 pg (27.0-32.0); Mean Corpuscular Volume 94.6 fL (81-99); Mean Platelet Vol. 11.3 fl (6.2-12.0); Platelet Count 256 K/mm3 (150-450); RBC Distribution Width CV 12.3 % (11.6-14.6); RBC Distribution Width SD 42.9 fl (35.1-43.9); Red Blood Count 5.15 M/mm3 (4.2-5.4); White Blood Count 8.5 K/mm3 (4.4-11.0)
[2019-12-07 16:09] LABS: ALB/GLOB Ratio 0.8 RATIO (0.9-2.4); AST(SGOT) 31 U/L (15-37); Alanine Aminotransfer ALT/SGPT 61 U/L (13-56); Albumin, Serum 3.4 g/dL (3.2-5.0); Alkaline Phosphatase 77 U/L (45-117); Anion Gap 6 (5-15); BUN 15 mg/dL (7-18); Calcium,Total 9.3 mg/dL (8.5-10.1); Chloride 102 mmol/L (98-107); Cholesterol 164 mg/dL (200); Creatinine, Serum 1.07 mg/dL (0.55-1.02); EST Glomerular Filtration Rate 55 mL/min (>60); Est Glom Filt Rate - Afr Amer 66 mL/min (>60); Globulin 4.3 g/dL (2.2-4.2); Glucose 205 mg/dL (74-106); High Density Lipoprotein 41 mg/dL; Potassium 3.9 mmol/L (3.5-5.1); Protein, Total 7.7 g/dL (6.4-8.2); Sodium Level 136 mmol/L (136-145); Thyroid Stim Hormone (TSH) 3.68 uIU/mL (0.358-3.74); Triglycerides 182 mg/dL; Very Low Density Lipoprotein 36 mg/dL (5-40)
[2019-12-07 17:05] LABS: Microalbumin,Random Urine 35.9 mg/L (NO RANGE EST.); Microalbumin:Creatinine Ratio 69.2 mg/g CRE (<30 mg/g CRE)
== END ==
PROVIDERS: PCP Internal Medicine; Visit Provider Nurse Practitioner Family
DX: E11.42 Type 2 diabetes mellitus with diabetic polyneuropathy (principal)
CPT/HCPCS: 36415; 80053; 80061; 82043; 82570; 84443; 85027

== ENCOUNTER 2020-01-11 00:53 | Inpatient (IN) | payer MEDICARE, OTHER, SELFPAY ==
[2020-01-04 13:43] VITALS: BMI 27.5
[2020-01-11] VITALS (16 sets, daily range): BP systolic 106–146; BP diastolic 52–72; PULSE 62–91; RESP 16–20; TEMP 36.6–37.1; O2SAT 93–97; BMI 27.8
--- NOTE | 2020-01-11 00:29 | NURSING ---
Nine rings, one watch, two necklaces and one gold earring locked in [employer].
--- NOTE | 2020-01-11 01:33 | PCM.HP.STD ---
Problem List (1) Femoral neck fracture Status: Acute (2) Polyneuropathy due to type 2 diabetes mellitus Status: Chronic (3) Stage 3 chronic kidney disease due to type 2 diabetes mellitus Status: Chronic (4) Back pain Status: Chronic (5) Bilateral knee pain Status: Chronic Qualifiers: (6) Depression with anxiety Status: Chronic (7) Paroxysmal atrial flutter Status: Chronic (8) Hyperlipidemia Status: Chronic Qualifiers: (9) Essential (primary) hypertension Status: Chronic (10) Type 2 diabetes mellitus Status: Chronic Qualifiers: (11) Atherosclerotic heart disease of [place] coronary artery without angina pectoris Status: Chronic Comment: BMS to the LCX w/ Itnegrity 4 x 15 mm 04/06/2011 (12) Ventricular septal defect Status: Chronic (13) Paroxysmal atrial fibrillation Status: Chronic History of Present Illness Date of Admission: 01/11/20 Chief Complaint: fall The patient is a 64 year old F with a significant history of CAD status post CABG and stent; status post colectomy; paroxysmal A. fib; hypertension and diabetes who fell and presented to [facility] ED in [facility]. She went to her daughter's house. Her daughter's dogs came to greet her and before patient would realized she had fallen. Following her fall she had excruciating right hip pain. Imaging at outside hospital ED showed right femoral neck fracture. The case was discussed with orthopedic surgeon and hospitalist at [facility]. The patient was accepted as a direct admission to [facility] under hospitalist service. Past Medical History Past Medical History (Chronic Problems): Chronic Problems (Last Reviewed 01/11/20 @ 02:[address] Morro Hung MD) Polyneuropathy due to type 2 diabetes mellitus (Chronic) Stage 3 chronic kidney disease due to type 2 diabetes mellitus (Chronic) Back pain (Chronic) Bilateral knee pain (Chronic) Depression with anxiety (Chronic) Paroxysmal atrial flutter (Chronic) Hyperlipidemia (Chronic) Essential (primary) hypertension (Chronic) Type 2 diabetes mellitus (Chronic) Atherosclerotic heart disease of [place] coronary artery without angina pectoris (Chronic) BMS to the LCX w/ Itnegrity 4 x 15 mm 04/06/2011 Ventricular septal defect (Chronic) Paroxysmal atrial fibrillation (Chronic) Medical History: Medical History (Last Reviewed 01/11/20 @ 02:[address] Morro Hung MD) Paroxysmal atrial flutter (Chronic) I48.92 Hyperlipidemia (Chronic) E78.5 Essential (primary) hypertension (Chronic) I10 Type 2 diabetes mellitus (Chronic) E11.9 Atherosclerotic heart disease of [place] coronary artery without angina pectoris (Chronic) I25.10 BMS to the LCX w/ Itnegrity 4 x 15 mm 04/06/2011 Ventricular septal defect (Chronic) Q21.0 Paroxysmal atrial fibrillation (Chronic) I48.0 Arthritis M19.90 Back pain M54.9 Back problem M53.9 Diabetes E11.9 H/O: pneumonia Z87.01 History of stroke Z86.73 Hx of cardiac murmur Z86.79 Knee pain M25.569 Limb weakness R29.898 Neck pain M54.2 Seasonal allergies J30.2 Severe headache R51 Shoulder pain M25.519 Stroke I63.9 DKA (diabetic ketoacidoses) E13.10 Depression F32.9 HTN (hypertension) I10 History of ischemic multifocal multiple vascular territories stroke Z86.73 Obesity E66.9 Status post abdominal surgery, follow-up exam (Inactive) Z09 Allergies No Known Allergies Allergy (Verified 01/04/20 13:43) Home Medications: Ambulatory Orders Medication Instructions Recorded Aspirin [Aspirin EC] 81 mg PO DAILY 12/26/17 cyclobenzaprine 10 mg tablet 5 mg PO TID PRN PRN #30 tab 02/02/19 Glipizide [Glipizide ER] 10 mg PO DAILY 03/02/19 Metoprolol Tartrate [Lopressor 50 mg PO BID 03/02/19 (beta wally)] Multivitamin with Folic Acid [Cvs 400 mcg PO DAILY 03/02/19 One Daily Essential Tablet] Sitagliptin Phos/Metformin HCl 1 tab PO DAILY 03/02/19 [Janumet Xr 50-1,000 mg Tablet] duloxetine 30 mg capsule,delayed 60 mg PO DAILY #90 cap 07/07/19 release benzonatate 100 mg capsule 100 mg PO TID PRN #30 cap 12/07/19 Apixaban [Eliquis] 5 mg PO BID 01/11/20 Aripiprazole 10 mg PO DAILY 01/11/20 Atorvastatin Calcium [Lipitor] 20 mg PO QHS 01/11/20 Cetirizine HCl 10 mg PO DAILY 01/11/20 Empagliflozin [Jardiance] 25 mg PO DAILY 01/11/20 Gabapentin 300 mg PO QHS 01/11/20 Insulin Aspart Prot/Insuln Asp 70 unit SUBCUT DAILY 01/11/20 [Insulin Aspart Prot-Insuln Asp] Losartan Potassium 12.5 mg PO DAILY 01/11/20 Omeprazole 20 mg PO DAILY 01/11/20 Surgical History: Surgical History (Last Reviewed 01/11/20 @ 02:[address] 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 Morro Hung MD) Mother Ovarian cancer Father Hypertension COPD (chronic obstructive pulmonary disease) Heart disease Sister Multiple sclerosis Cancer Sister Brain tumor Heart disease Brother A-fib Review of Systems Constitutional: Denies: Chills, Fever, Weight Change HEENT: Denies: Head Aches, Sinus Congestion, Sinus Drainage Cardiovascular: Denies: Chest Pain, Palpitations Respiratory: Denies: Cough, Shortness of breath at rest, Sputum production Gastrointestinal: Denies: Abdominal Pain, Nausea, Vomiting Genitourinary: Denies: Dysuria Musculoskeletal: Reports: Joint Pain - hip, Joint Tenderness - hip pain Skin: Denies: Rash, Wounds Neurological: Denies: Numbness, Tingling, Focal weakness Psychiatric: Reports: Anxiety, Depression. Denies: Homicidal Ideations, Suicidal Ideations Hematologic/ Lymphatic: Denies: Easy Bruising, Easy Bleeding VTE Information - Inpt Only VTE Present on Admission: No VTE Mechan Device Prophylaxis: SCD's VTE Pharm Prophylaxis ordered?: No Patient Problems: Active and Suspected Problems (Last Reviewed 01/11/20 @ 02:[address] Morro Hung MD) Femoral neck fracture (Acute) - Physical Exam Vitals/I&O's: Vital Signs Temp Pulse Resp BP Pulse Ox 98.3 F 89 18 128/52 H 95 01/11/20 00:35 01/11/20 00:35 01/11/20 00:35 01/11/20 00:35 01/11/20 00:35 Oxygen Delivery Method Room Air Weight: 82.9 kg Body Mass Index (BMI) 27.8 Finger Stick Blood Glucose 351 General: Alert, Oriented x3, Cooperative HEENT: Atraumatic, PERRLA, EOMI, Normocephalic Neck: Supple, No JVD, Negative Carotid Bruits Lungs: Clear to auscultation, No rhonchi, No wheeze, Short of Breath Cardiovascular: Regular rate, Regular Rhythm, Normal S1, Normal S2, No murmurs Abdomen: Bowel Sounds Present, Soft, Non Tender Extremities: No edema, Capillary Refill Less than 3 Seconds Skin: No rashes, No breakdown Musculoskeletal: Tenderness - Right hip Neurological: Cranial nerves II-XII grossly intact Psych/Mental Status: Anxious Current Medications Sodium Chloride () 250 mls @ 15 mls/hr IV .[id number] PRN PRN Reason: Saline Flush Sodium Chloride () 250 mls @ 15 mls/hr IV .[id number] PRN PRN Reason: Additional IVPB Infusion Sodium Chloride () 10 - 40 ml IV UD PRN PRN Reason: SALINE FLUSH Assessment/Plan All Active Problems (Last Reviewed 01/11/20 @ 02:[address] Morro Hung MD) Femoral neck fracture (Acute) URI (upper respiratory infection) (Resolved) Sinusitis (Resolved) History of coronary artery stent placement (Resolved 04/06/11) DKA (diabetic ketoacidoses) (Resolved) UTI (urinary tract infection) (Resolved) The patient is a 64 year old F with a significant history of CAD status post CABG and stent; chronic, status post colectomy; paroxysmal A. fib; hypertension and diabetes fall and radiographic evidence of right femoral neck fracture Fall with right femoral neck fracture Patient was on Eliquis at home. Will hold Eliquis for now. Control pain with PRN oxycodone and as needed morphine IV. Antiemetics and bowel protocol ordered. Orthopedic Consult. No weightbearing on right lower extremity. Since patient is on Eliquis anticipate surgical intervention within 2 days. We will go ahead and put on regular diabetic diet. ACS NSQIP surgical risk calculator: Serious complication?chance of outcome is average. Any complications?chance of outcome is average. Cardiac complications?chance of outcome is above average; average risk is 1.7% and patient's risk is 1.9%. Risk of is below average. Of note surgical risk was not calculated with kidney function as BMP was not available at the time of history taking. History of atrial Fibrillation Eliquis on hold secondary to patient being a surgical candidate. Telemetric monitoring CAD S/P CABG and stent Her stent was placed at least 10 years ago. Hold aspirin because of possible surgery. No Chest pain at this time. Diabetes mellitus With hyperglycemia on prese Home oral hypoglycemic medication held. De-escalate home basal insulin. Accu-Chek with correction scale insulin ordered. Calorie controlled diet. HTN His blood pressure was not within goal Metoprolol continued Losartan continued Trend blood pressure medications. CKD Stage III BMP in a.m. Depression/anxiety Aripiprazole continued Cymbalta continued. DVT Prophylaxis SCD ordered. Inpatient E&M: [id number] Init Hosp L3
[2020-01-11 02:16] LABS: Bedside Glucose 187 mg/dL (70-110)
[2020-01-11] MEDS: 0.9% Saline Lock 10 ML Syringe IV ×6 (04:10→23:00)
[2020-01-11] MEDS: Morphine 2 MG/ML Syringe IV ×5 (04:10→23:00)
[2020-01-11 06:03] LABS: Absolute Lymphocyte Count 1.41 X10^3/uL (0.83-4.51); Absolute Neutrophil Count 7.3 X10^3/uL (2.0-7.7); Basophil# 0.04 X10^3/uL; Basophil% 0.4 % (0-1); Eosinophil# 0.02 X10^3/uL; Eosinophils% 0.2 % (0-5); Hematocrit 43.5 % (37-47); Hemoglobin 14.6 g/dL (12.0-15.0); Lymphocyte # 1.41 X10^3/ul (4.0); Lymphocyte % 14.6 % (19-41); Mean Corp Hgb Conc 33.6 g/dL (32-36); Mean Corpuscular Hgb 31.3 pg (27.0-32.0); Mean Corpuscular Volume 93.3 fL (81-99); Mean Platelet Vol. 10.4 fl (6.2-12.0); Monocyte# 0.87 X10^3/uL; NRBC Flagged by Analyzer 0 % (0-5); Neutrophil # 7.29 X10^3/uL (2.7-7.7); Neutrophil % 75.4 % (47-70); Platelet Count 205 K/mm3 (150-450); RBC Distribution Width CV 12.5 % (11.6-14.6); RBC Distribution Width SD 42.9 fl (35.1-43.9); Red Blood Count 4.66 M/mm3 (4.2-5.4); White Blood Count 9.7 K/mm3 (4.4-11.0)
[2020-01-11 06:28] LABS: Anion Gap 5 (5-15); BUN 16 mg/dL (7-18); BUN/Creat Ratio 16.2 RATIO (10-20); Calcium,Total 8.8 mg/dL (8.5-10.1); Chloride 110 mmol/L (98-107); Creatinine, Serum 0.99 mg/dL (0.55-1.02); EST Glomerular Filtration Rate 60 mL/min (>60); Est Glom Filt Rate - Afr Amer 72 mL/min (>60); Estimated Creatinine Clearance 57.15 ml/min; Glucose 146 mg/dL (74-106); Potassium 3.8 mmol/L (3.5-5.1); Sodium Level 141 mmol/L (136-145)
[2020-01-11 07:01] LABS: Bedside Glucose 130 mg/dL (70-110)
--- NOTE | 2020-01-11 07:30 | CON.PCM_ITS ---
Reason for Consult Date of Consultation: 01/11/20 Reason for Consultation: Right hip pain History of Present Illness: The patient is a 64 year old F [who got knocked over by her daughter's dogs. She suffered a right hip fracture. She was taken to [facility] and transferred to [facility] at her request. She was admitted by the hospitalist last night and orthopedic consultation was sought. At the time of my evaluation, she reports only right hip and leg pain. She denies N/T/P or LOC. She is on Eliquis chronically for atrial fibrillation. She denies pain in other parts of the axial or appendicular skeleton. PMHx, PSHx, Family HX, Medications, Allergies and ROS were reviewed as per the intake H&P.] Past Medical History Past Medical History (Chronic Problems): Chronic Problems (Last Updated 01/11/20 @ 07:[address] Walter Winkler MD) Back pain (Chronic) Paroxysmal atrial flutter (Chronic) Depression with anxiety (Chronic) CVA (cerebral vascular accident) (Chronic) Stage 3 chronic kidney disease due to type 2 diabetes mellitus (Chronic) Polyneuropathy due to type 2 diabetes mellitus (Chronic) Hyperlipidemia (Chronic) Essential (primary) hypertension (Chronic) History of coronary artery stent placement (Chronic 04/06/11) BMS to the LCX w/ Itnegrity 4 x 15 mm 04/06/2011 Type 2 diabetes mellitus (Chronic) Atherosclerotic heart disease of [place] coronary artery without angina pectoris (Chronic) BMS to the LCX w/ Itnegrity 4 x 15 mm 04/06/2011 Ventricular septal defect (Chronic) Paroxysmal atrial fibrillation (Chronic) Medical History: Medical History (Last Updated 01/11/20 @ 07:[address] Walter Winkler MD) Hyperlipidemia (Chronic) E78.5 Essential (primary) hypertension (Chronic) I10 Type 2 diabetes mellitus (Chronic) E11.9 Atherosclerotic heart disease of [place] coronary artery without angina pectoris (Chronic) I25.10 BMS to the LCX w/ Itnegrity 4 x 15 mm 04/06/2011 Ventricular septal defect (Chronic) Q21.0 Paroxysmal atrial fibrillation (Chronic) I48.0 History of stroke Z86.73 Seasonal allergies J30.2 Depression F32.9 History of ischemic multifocal multiple vascular territories stroke Z86.73 Obesity E66.9 Allergies No Known Allergies Allergy (Verified 01/04/20 13:43) Home Medications: Ambulatory Orders Medication Instructions Recorded Aspirin [Aspirin EC] 81 mg PO DAILY 12/26/17 cyclobenzaprine 10 mg tablet 5 mg PO TID PRN PRN #30 tab 02/02/19 Glipizide [Glipizide ER] 10 mg PO DAILY 03/02/19 Metoprolol Tartrate [Lopressor 50 mg PO BID 03/02/19 (beta guzman)] Multivitamin with Folic Acid [Cvs 400 mcg PO DAILY 03/02/19 One Daily Essential Tablet] Sitagliptin Phos/Metformin HCl 1 tab PO DAILY 03/02/19 [Janumet Xr 50-1,000 mg Tablet] duloxetine 30 mg capsule,delayed 60 mg PO DAILY #90 cap 07/07/19 release benzonatate 100 mg capsule 100 mg PO TID PRN #30 cap 12/07/19 Apixaban [Eliquis] 5 mg PO BID 01/11/20 Aripiprazole 10 mg PO DAILY 01/11/20 Atorvastatin Calcium [Lipitor] 20 mg PO QHS 01/11/20 Cetirizine HCl 10 mg PO DAILY 01/11/20 Empagliflozin [Jardiance] 25 mg PO DAILY 01/11/20 Gabapentin 300 mg PO QHS 01/11/20 Insulin Aspart Prot/Insuln Asp 70 unit SUBCUT DAILY 01/11/20 [Insulin Aspart Prot-Insuln Asp] Losartan Potassium 12.5 mg PO DAILY 01/11/20 Omeprazole 20 mg PO DAILY 01/11/20 Surgical History: Surgical History (Last Updated 01/11/20 @ 07:[address] 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 Morro Hung MD) Mother Ovarian cancer Father Hypertension COPD (chronic obstructive pulmonary disease) Heart disease Sister Multiple sclerosis Cancer Sister Brain tumor Heart disease Brother A-fib History Items: No pertinent history Patient Problems: Active and Suspected Problems (Last Updated 01/11/20 @ 07:[address] Walter Winkler MD) Femoral neck fracture (Acute) - Physical Exam Vitals/I&O's: Vital Signs Temp Pulse Resp BP Pulse Ox 98.3 F 91 20 H 146/72 H 97 01/11/20 01:59 01/11/20 02:29 01/11/20 02:06 01/11/20 01:59 01/11/20 01:59 Oxygen Delivery Method Room Air Weight: 182 lb 12.211 oz Body Mass Index (BMI) 27.8 Finger Stick Blood Glucose 351 General: Alert, Oriented x3, No apparent distress HEENT: Atraumatic Musculoskeletal: Tenderness - About the right hip. ROM not tested due to known fracture. RLE is sightly shortened and externally rotated. Neurological: Neuro grossly intact Laboratory Results 01/11/20 01:56: POC Glucose 187 H 01/11/20 05:38: WBC 9.7, RBC 4.66, Hgb 14.6, Hct 43.5, MCV 93.3, MCH 31.3, MCHC 33.6, RDW Std Deviation 42.9, RDW Coeff of Zakiya 12.5, Plt Count 205, MPV 10.4, Immature Gran % (Auto) 0.400, Neut % (Auto) 75.4 H, Lymph % (Auto) 14.6 L, Cowley % (Auto) 9.0, Eos % (Auto) 0.2, Baso % (Auto) 0.4, Absolute Neuts (auto) 7.3, Absolute Lymphs (auto) 1.41, Nucleated RBC % 0 01/11/20 05:38: Sodium 141, Potassium 3.8, Chloride 110 H, Carbon Dioxide 26.0, Anion Gap 5, BUN 16, Creatinine 0.99, Estim Creat Clear Calc 57.15, Est GFR (MDRD) Af Amer 72, Est GFR (MDRD) Non-Af 60, BUN/Creatinine Ratio 16.2, Glucose 146 H, Calcium 8.8 01/11/20 05:38: Vitamin D 25-Hydroxy Pending 01/11/20 06:56: POC Glucose 130 H Current Medications Acetaminophen (Tylenol) 650 mg PO Q6H PRN PRN PRN Reason: Pain Score 1-10/Temp > 100.7 F Aripiprazole (Abilify) 10 mg PO DAILY [facility] Atorvastatin Calcium (Lipitor) 20 mg PO QHS [facility] Benzonatate (Tessalon Perle) 100 mg PO TID PRN PRN PRN Reason: cough Cyclobenzaprine HCl (Flexeril) 5 mg PO TID PRN PRN PRN Reason: Pain Score 1-10/10 Dextrose (D50w Syringe) 0 gm IV X1 PRN; Protocol PRN Reason: Hypoglycemia Duloxetine HCl (Cymbalta) 60 mg PO DAILY [facility] Gabapentin (Neurontin) 300 mg PO QHS [facility] Glucagon () 1 mg IM .X1 PRN PRN Reason: Hypoglycemia Sodium Chloride () 250 mls @ 15 mls/hr IV .[id number] PRN PRN Reason: Saline Flush Sodium Chloride () 250 mls @ 15 mls/hr IV .[id number] PRN PRN Reason: Additional IVPB Infusion Insulin Glargine (Lantus (Bkc)) 50 units SC DAILY [facility] Insulin Human Lispro (Humalog Kwikpen (Bk)) 0 unit SC ACHS [facility]; Protocol Last Admin: 01/11/20 06:56 Dose: Not Given Documented by: Loratadine (Claritin) 10 mg PO DAILY [facility] Losartan Potassium (Cozaar) 12.5 mg PO DAILY [facility] Metoprolol Tartrate (Lopressor (Beta Guzman)) 50 mg PO BID [facility] Morphine Sulfate () 2 mg IV Q3H PRN PRN PRN Reason: Pain Score 6-10/10 Last Admin: 01/11/20 04:10 Dose: 2 mg Documented by: [facility]it[facility]itamin) [facility] Nicotine (Nicoderm Cq (Pbkc)) 21 mg TRANSDERM. DAILY [facility] Ondansetron HCl (Zofran) 4 mg IV Q8H PRN PRN PRN Reason: NAUSEA/VOMITING Oxycodone HCl (Oxyir) 5 mg PO Q4H PRN PRN PRN Reason: Pain Score 4-5/10 Pantoprazole Sodium (Protonix) 20 mg PO DAILY [facility] Senna/Docusate Sodium (Senokot-S, Yessica-Colace) 2 tablet PO BID PRN PRN PRN Reason: Constipation Sodium Chloride () 10 - 40 ml IV UD PRN PRN Reason: SALINE FLUSH Last Admin: 01/11/20 04:10 Dose: 10 ml Documented by: Assessment/Plan All Active Problems (Last Updated 01/11/20 @ 07:[address] Walter Winkler MD) Femoral neck fracture (Acute) DKA (diabetic ketoacidoses) (Resolved) UTI (urinary tract infection) (Resolved) Right hip fracture I reviewed options for treatment with her. I have recommended ORIF of her fracture. Since she is on Eliquis, we will likely wait until tomorrow for surgery to allow the blood thinning effects of Eliquis to mitigate.
--- NOTE | 2020-01-11 07:45 | EKG12_ITS ---
Test Reason : PREOP Blood Pressure : / mmHG Vent. Rate : 062 BPM Atrial Rate : 062 BPM P-R Int : 188 ms QRS Dur : 110 ms QT Int : 476 ms P-R-T Axes : 072 056 121 degrees QTc Int : 483 ms Normal sinus rhythm ST & T wave abnormality, consider lateral ischemia Abnormal ECG Confirmed by TAMIKO KINSEY, RADHA ([id number]), telegraph editor LILIANE QUINTERO ([id number]) on 01/13/2020 3:43:53 PM Referred By: JAE Confirmed By:RADHA MORRISON MD
[2020-01-11] MEDS: Multivitamins,Therapeutic Tablet 1 TABLET PO (07:59)
[2020-01-11] MEDS: DULoxetine Hcl 60 MG Capsule PO (08:00)
[2020-01-11] MEDS: Losartan Potassium 25 MG Tablet 12.5 MG PO (08:00)
[2020-01-11] MEDS: Loratadine 10 MG Tablet PO (08:00)
[2020-01-11] MEDS: Metoprolol Tartrate 50 MG Tablet PO ×2 (08:01→22:55)
[2020-01-11] MEDS: Pantoprazole Sodium 20 MG Tablet PO (08:01)
[2020-01-11] MEDS: ARIPiprazole 10 MG Tablet PO (08:03)
[2020-01-11 08:57] LABS: International Normalized Ratio 1.1; Prothrombin Time (Protime)PT. 13.5 SECONDS (11.7-14.9)
--- NOTE | 2020-01-11 10:47 | PCM.PN.BLA ---
Progress Note This is a 64 years old female patient admitted because of acute traumatic right femoral neck fracture. At this time, her pain is well controlled. Her vital signs are stable. She lives at home, active, doing her duties without restrictions. Routine blood work was unremarkable. Patient was on Eliquis for paroxysmal atrial fibrillation, last dose was yesterday morning. Pro time and INR were normal. She had a history of CAD status post CABG and stents, type 2 diabetes mellitus, paroxysmal atrial fibrillation, hypertension. EKG and chest x-ray was not done. Based on her age, past medical history, functional status and kidney function, her estimated risk for perioperative myocardial infarction or cardiac arrest is 0.61%. She had an echocardiogram done on February, that revealed ejection fraction of 40%, mild segmental systolic dysfunction, moderately dilated left ventricle, other findings reviewed. Plan: EKG, chest x-ray. [facility] Vital Signs/Narrative: Vital Signs Temp Pulse Resp BP Pulse Ox 01/11/20 08:01 79 01/11/20 08:00 98.7 F 79 16 122/64 H 94
--- NOTE | 2020-01-11 10:51 | RAD_ITS ---
STUDY: X-RAY CHEST REASON FOR EXAM: Female, 64 years old. Pre op evaluation, some coughing -- right femoral neck fracture, surgery tomorrow TECHNIQUE: Single AP portable view of the chest. COMPARISON: Comparison is made with prior examination to 03/02/2019. FINDINGS: EKG electrodes are seen. The lungs are clear and expanded. There is no demonstrated pleural abnormality. Sternal cerclage wires and vascular clips are present from a prior sternotomy and coronary artery bypass graft procedure (CABG). Normal mediastinum and ventura. Normal visualized pulmonary arteries. Normal visualized aortic arch and descending thoracic aorta. Normal visualized thoracic spine. Normal visualized ribs, clavicles, and shoulders. There is no demonstrated abnormality of the visualized soft tissue structures of the upper abdomen. RAD/Chest 1 View (Portable) IMPRESSION: Normal x-ray examination of the chest. Electronically Signed: Steve Holloway, at 15:11 EDT , Service support ,
--- NOTE | 2020-01-11 11:39 | CASEMGMT ---
Social Work Assessment Referral Date: 01/11/2020 Date of assessment: 01/11/2020 Reason for consult: Hip fracture Informant: ABRAM Personal Status: SW in to speak with pt to discuss discharge plans. Pt's daughter Reina present in room. SW introduced self and role at [facility]. Pt is alert and orientated x3. Pt states that she lives with her son in a ranch style home with two little steps to enter. Pt has no DME at home. Pt was fairly independent at home but doesn't drive anymore. PCP is Dr. Cope and Pharmacy is [facility]. Pt's daughter Reina did assist with answering questions throughout assessment. Substance Abuse: Pt states that she currently smokes cigarettes, denied other substance abuse/use. Mental Health Hx: Pt and Reina state that pt has depression and anxiety and currently take medications. HHC: None before SNF: None before SW educated pt and Reina that typically after a hip fracture, a pt may need SNF/RU for short term rehabilitation before returning home. At first, pt mentioned that she wanted to return home but Reina informed pt that it would be difficult to transport pt to therapy and pt states that is true. ABRAM provided Reina and pt with list of SNF that accept pt's insurance and did educate pt and Reina on [facility] but did inform that this worker is not sure if there are any beds available on RU. Pt and Reina agreeable to RU and would like referral sent to RU. Reina provided this worker with HCPOA and LW. Copies made and put on pt's chart, originals provided back to Reina. ABRAM placed a call to referral line and provided referral to [facility]. Aleshia states at this time there are no beds on RU but will take RU referral and also put pt on TCU list. ABRAM explained that pt is not having surgery until tomorrow so discharge wouldn't be until or Friday. ABRAM updated pt and Reina that pt is on both TCU and RU list. Reina and pt state understanding. Plan: RU vs TCU Lyn Arora REPRODUCTION PRODUCTION MANAGER, QUILL LAYER
[2020-01-11] MEDS: Insulin Lispro 100 UNIT/ML INSULN.PEN SC (11:47)
[2020-01-11 11:51] LABS: Bedside Glucose 163 mg/dL (70-110)
--- NOTE | 2020-01-11 13:06 | NURSING ---
daughter requesting to speak with charge nurse - entered the room and daughter demanding time for pts surgery tomorrow. Informed daughter and pt that she was not added to the list at this time and as soon as I see when the surgery is I will let her know that is may not be until this evening. Pt and daughter ok with this information. Also explained about that pt will go down to surgery 1-1.5hrs prior then and the approximate time of an hour depending on what they get into and recover takes about an hour then pt will return to the floor.
--- NOTE | 2020-01-11 16:03 | CASEMGMT ---
Social Work Note ABRAM received call from Aleshia with RU/TCU. Aleshia states RU will not have a bed until Friday for pt. ABRAM updated Aleshia that this worker is not sure that pt would need to stay until Friday. Aleshia states that TCU would have a bed for pt either or Friday of this week. Aleshia states she will keep pt on TCU/RU list and will follow up on when pt may be medically ready for discharge. ABRAM updated pt's daughter Reina on above information. Reina states that she prefers for pt to go to [facility] where pt will get the more intense therapy. ABRAM updated Reina that it just depends on how pt does after surgery and when physician is wanting pt to discharge. ABRAM explained that regardless pt can stay at [facility] it just depends on when pt will be discharged that will determine if pt goes to RU or TCU. Reina states understanding. Plan: RU vs TCU Lyn Arora MONTESSORI PROGRAM DIRECTOR, STRESS ENGINEER
[2020-01-11 16:40] LABS: Bedside Glucose 111 mg/dL (70-110)
[2020-01-11] MEDS: Atorvastatin Calcium 20 MG Tablet PO (22:55)
[2020-01-11] MEDS: Gabapentin 300 MG Capsule PO (22:55)
[2020-01-12] VITALS (21 sets, daily range): BP systolic 97–136; BP diastolic 46–75; PULSE 65–91; RESP 18–20; TEMP 36.8–37.3; O2SAT 94–963; BMI 27.8
--- NOTE | 2020-01-12 | HIP_PTH ---
PATIENT: WINIFRED ROUSE LOC: MS3 U#:[id number] AGE/SX: 64/F ROOM: [facility] RE01/11/[address]: Dr. Walter Winkler MD : 1955 BED: 1 DIS: 01/14/2020 SPEC #: [id number] RECD: 01/12/20 11:00 STATUS: KAITLIN REQ #: [id number] MOMO: 01/12/20 00:[address]: Sean Griffin DEPT: SURGICAL PATHOLOGY RECD BY: Eros Gunderson ENTERED: 01/12/20 11:00 SP TYPE: TOTAL HIP OTHR DR: MD Dr. Walter Law MD Dr. Joseph Agyepong, MD Dr. Michael Knapic, DO Tissues: Hip, NOS Procedures: Decalcification bone/plaque Surgery Specimen Level IV Comments: @ Ordering doctor for DEC edited from to DR.SWIDME Bello by SERA at 01/12/20 1345 @ Ordering doctor for SUIV edited from to @ by SERA at 01/12/20 1345 @ Submitting doctor edited from to DR.SWIDME Bello by SERA at 01/12/20 1345 HEADER OPERATION: Total hip anterior approach PRE-OP DIAGNOSIS: Primary osteoarthritis right hip; right hip acute subcapital femoral neck fracture TISSUE SUBMITTED: Right femoral head MICROSCOPIC DIAGNOSIS Right femoral head: Femoral head with focal area of hemorrhage, clinically right hip acute subcapital femoral neck fracture. Fragments of fibroadipose and fibroconnective tissue. SJ:armida 01/17/20 MICROSCOPIC DESCRIPTION Slides are reviewed. GROSS DESCRIPTION Received is one container labeled with the patient's name and designated right femoral head. The specimen consists of a lowe femoral head measuring 4.5 x 4.5 x 4.5 cm. The nonarticular surfaces are irregular, granular and consistent with fracture site. Resection margin is irregular and hemorrhagic. Also present in the specimen container are multiple irregular fragments of bone and soft tissue and reamings measuring in aggregate 8 x 7 x 2 cm. Middleware Consultant sections are submitted in three cassettes as follows: 1 - soft tissue, 2 & 3 - bone after decalcification. / AM:armida 01/12/20 TC:5 CPT: 47600, 52838
[2020-01-12 00:06] LABS: Bedside Glucose 137 mg/dL (70-110)
[2020-01-12] MEDS: 0.9% Saline Lock 10 ML Syringe IV ×2 (03:57→06:12)
[2020-01-12] MEDS: Morphine 2 MG/ML Syringe IV (03:57)
[2020-01-12 06:36] LABS: Bedside Glucose 141 mg/dL (70-110)
--- NOTE | 2020-01-12 07:10 | PCM.PN.BLA ---
Progress Note S: 64-year-old female with multiple medical comorbidities. She lives independently. Her son does live with her at home. She completes all her own ADLs. She ambulates that a cane or a walker. Minimal evidence of previous hip pain. She was seen by my partner yesterday and I was asked to assume her care. Patient reports right hip pain. No numbness and tingling distally. She was found to have a subcapital femoral neck fracture. O: Afebrile vital signs stable. Hemoglobin 14.6. Right lower extremity: Skin clean, dry, and intact. Limb is shortened and externally rotated Motor is intact dorsiflexion, EHL and plantar flexion. Sensation is intact to light touch saphenous, gracy,l superficial peroneal, deep peroneal and tibial distributions. Calves are soft and supple. Right hip x-rays reveal a subcapital femoral neck fracture of the right hip as well as joint space narrowing and subchondral sclerosis in the weightbearing areas consistent with primary osteoarthritis of the right hip. A: 1. Primary osteoarthritis right hip 2. Right hip acute subcapital femoral neck fracture P: At this time I have discussed the natural history of both disease processes with the patient and her daughter who is at the bedside. Patient options were hemiarthroplasty versus total hip replacement. Do not feel she is a good candidate for internal fixation due to the displacement of the fracture. Also based on her health and overall activity level nonoperative treatment is a poor option. At this time based on her previously existing osteoarthritis of the hip and the acute femoral neck fracture as well as overall independence and life expectancy I recommended a total hip replacement. Risks and benefits of the procedure were discussed the patient including but not limited to blood loss, DVTs, PEs, nervous damage, infection, the risk of anesthesia including loss of life. Also discussed the patient there is a increased possibility of dislocations in the face of fracture after total hip replacement. Patient and daughter demonstrated understanding and wished to proceed. She is n.p.o. We will proceed with surgery this morning. Surgery was delayed yesterday secondary to the patient being on Eliquis. [facility] Office: [facility] Vital Signs/Narrative: Vital Signs Temp Pulse Resp BP Pulse Ox 01/12/20 06:14 98.4 F 67 18 108/49 L 94 08/05/20 06:00 64 01/12/20 03:56 98.3 F 66 18 116/75 94
[2020-01-12] MEDS: Lactated Ringers 1,000 ML 100 ML IV ×2 (07:30→08:45)
[2020-01-12] MEDS: Cefazolin 2 GM in 0.9% Normal Saline 100 ML IV (07:45)
--- NOTE | 2020-01-12 08:56 | RAD_ITS ---
STUDY: X-RAY - PELVIS AND RIGHT HIP REASON FOR EXAM: Female, 64 years old. Femoral neck fracture, anterior repair in OR TECHNIQUE: 1 views of the pelvis and hip. COMPARISON: None. FINDINGS: Intraoperative imaging provided for right total hip replacement. RAD/Hip 1 view with Pelvis IMPRESSION: Intraoperative imaging provided for right total hip replacement. Electronically Signed: Steve Holloway, at 10:44 EDT , Service support ,
--- NOTE | 2020-01-12 09:41 | PCM.OPRPT ---
Report of Operation Date of Procedure: 01/12/20 Pre-Operative Diagnosis: 1. Right hip primary osteoarthritis. 2. Right hip displaced subcapital femoral neck fracture Post-Operative Diagnosis: 1. Right hip primary osteoarthritis. 2. Right hip displaced subcapital femoral neck fracture Surgery/Procedure Performed:: Right direct anterior total hip replacement Description of Surgical Findings:: Stable hip. Leg lengths were equal based on radiograph. security door installer: Laura Amanda Type of Anesthesia:: General Anesthesiologist: Asim Epperson Special Medications: 2 g Ancef, 2 g TXA lavage in wound at completion of case, 10 mg Decadron, joint cocktail (5 mg Duramorph, 30 mL of 0.5% Ropivicaine, 1000 units of epinephrine, 30 mg of Toradol) Specimen's removed: Fractured femoral head Estimated Blood Loss (mL): 200 Fluids Replaced: 1200 mL crystalloid Description of Procedure: Components used: 1. Accolade 2 Vera femoral stem size 4 127? 2. Mike trident 2 acetabular shell size 52 mm 3. Mike X3 polyethylene femoral head liner 42E 4. Mike Biolox delta 28mm, 0mm femoral head 5. Mike MDM metal liner 42E Brief history operative indications: 64 yo F who presented with a right femoral neck fracture. She also had x-ray evidence consistent with osteoarthritis including joint space narrowing, and subchondral sclerosis. Based on patient's age, longevity, coinciding osteoarthritis and femoral neck fracture and a total hip replacement was discussed with the patient with risks and benefits including but not limited to blood loss, DVTs, PEs, neurovascular damage, dislocation, general risks of anesthesia including loss of life. Patient demonstrated an understanding medical clearance is obtained the patient was consented for surgery. Total hip was performed due to presence of osteoarthritis and increased longevity of the surgery. Was performed acutely due to the fracture. Procedure: On the date of procedure the patient's R hip was marked in the preoperative area. Patient was then taken back to the operating room where anesthesia assumed control of the C-spine and airway and administered anesthetic. Patient was transferred to the operating table and placed in the supine position. The hips were placed at the break of the bed and a sacral bump was placed. The R lower extremity was then prepped out in a sterile fashion using chlorhexidine while the surgeon scrubbed. The PA was vital in the positioning of the patient. Upon reentering the room the R lower extremity was draped in the standard orthopedic fashion and the incision was marked. A timeout was called and everyone agreed upon the side, the site, the procedure be performed, antibody given, and patient's identity. At this time incision was made through skin, subcutaneous tissue, and fat down to fascia. The fascia was then incised and the TFL was retracted laterally. A retractor was placed on the lateral border of the femoral neck. Attention was directed to the inferior portion of the approach and all crossing vessels were identified and appropriately coagulated. A retractor was then placed on the medial portion of the femoral neck. The anterior capsule was then cleared of all soft tissue and then H shaped capsulotomy was made. The retractors were then placed inside the capsule. The femoral neck was identified and a cleanup cut was made. At this time a power corkscrew was used to remove the femoral head. Attention was then turned toward the acetabulum where the soft tissues were appropriately retracted and the acetabulum was sequentially reamed to 52 mm. A 52 mm cup was then selected and impacted into place. Acetabular liner was impacted into place and locking mechanism was verified. The position of the acetabular cup was then verified under live fluoroscopy. Attention was then turned to the femur. Soft tissue releases on the medial and lateral femoral neck were appropriately done, the leg was externally rotated and lateralized. A Quiles retractor was placed medially and proximally to the greater trochanter this allowed appropriate visualization and exposure of the femoral canal. Rongeour was then used to remove excess lateral bone. A canal finder and entry broach were used to open the proximal canal. Once we verified we were down the femoral canal we subsequently broached up to a size 4 femur. The appropriate neck was placed in the previously selected head was trialed with a 0 mm neck. Traction was pulled and the hip was reduced with internal rotation. Once it was appropriately reduced and stability was checked. There was minimal shuck, equal leg lengths and appropriate stability with hyperextension and external rotation as well as with 90? flexion and internal rotation. Fluoroscopy was then also used to verify the position of the components and leg lengths using the contralateral side for comparison. The trial components were then dislocated the proximal femur was again exposed and the components were removed from the wound. The final components were verified and opened. The wound was copiously irrigated out with normal saline. The acetabulum was checked for any residual debris. The final components were placed and impacted. Traction and internal rotation were again used to reduce the hip. After adequate reduction the hip remained stable with appropriate leg lengths. The final components were once again checked with live fluoroscopy and were found to be satisfactory. The wound was then copiously irrigated with normal saline once more, and hemostasis was obtained. 1 minute TXA lavage was performed, 3-minute Betadine lavage was performed, Irricept lavage was performed and finally the wound was copiously irrigated out with normal saline. Closure was then done using #1 Vicryl runner to close the fascia. A 2-0 vicryl interuppted sutures were used to close the subcutaneous skin. A 3-0 Monocryl and Steri-Strips were used for final skin closure. A Silverlon dressing was placed. Patient was awakened by anesthesia and transferred to the [facility]. Patient was then transferred to the PACU for recovery. Postoperative plan: Patient will get 24 hours postop antibiotics. Patient will get in-house physical therapy and will be weight-bear as tolerated. Patient will follow up in office in 2 weeks for a wound check and x-rays. Patient can continue Eliquis 24 hours after surgery for DVT prophylaxis and chronic anticoagulation treatment. Suture tails can be removed in 2 weeks. - Complications No intraoperative complications - Admit VTE Documentation VTE Present on Admission: No VTE Mechan Device Prophylaxis: SCD's, Thigh High GAYATRI Hose VTE Pharm Prophylaxis ordered?: Yes
[2020-01-12 10:11] LABS: Bedside Glucose 131 mg/dL (70-110)
--- NOTE | 2020-01-12 10:15 | RAD_ITS ---
STUDY: X-RAY - PELVIS AND RIGHT HIP REASON FOR EXAM: Female, 64 years old. Post op TECHNIQUE: 3 views of the pelvis and hip. COMPARISON: None. FINDINGS: The patient is status post right total hip replacement. There is good alignment. Postoperative soft tissue changes. RAD/Hip Min 2 Views (Portable) IMPRESSION: Status post right total hip replacement. There is good alignment. Postoperative soft tissue changes. Electronically Signed: Steve Holloway, at 11:10 EDT , Service support ,
--- NOTE | 2020-01-12 10:40 | PN_ITS ---
Patient Problems: Active and Suspected Problems (Last Updated 01/11/20 @ 07:[address] Walter Winkler MD) Femoral neck fracture (Acute) Subjective: Chief complaint: Follow-up after admission for acute traumatic displaced subcapital right femoral neck fracture. Patient seen and examined. Patient was seen at the PACU. She just came back out of surgery. At this time, patient is sleepy but arousable. She was able to wake up and answer my questions. She denied any right hip pain. Denied chest pain or shortness of breath. Her vital signs are stable. - Physical Exam Vitals/I&O's: Vital Signs Temp Pulse Resp BP Pulse Ox 98.5 F 87 18 123/62 H 96 01/12/20 09:55 01/12/20 10:15 01/12/20 10:15 01/12/20 10:15 01/12/20 10:15 Oxygen Flow Rate (L/min) 4 Oxygen Delivery Method Room Air Weight: 182 lb 12.211 oz Body Mass Index (BMI) 27.8 Finger Stick Blood Glucose 351 Intake and Output for Last 24 Hours 01/10/20 01/11/20 01/12/20 23:59 23:59 23:59 Intake Total 200 / 450 360 / 360 Output Total 2050 / 2500 1100 / 1100 Balance -1850 / -2050 -740 / -740 General: Alert, Oriented x3, Cooperative, No apparent distress, - - Sleepy but arousable. HEENT: Atraumatic, PERRLA, EOMI, Normocephalic Oral: Moist Mucosa, No Gingival or Mucosal Lesions/ Ulcerations Neck: Supple, No JVD, Negative Carotid Bruits, Trachea Midline, Thyroid Normal Size and Texture Lungs: Clear to auscultation, Normal air movement, No rhonchi, No wheeze, No rales, Diminished Cardiovascular: Regular rate, Regular Rhythm, Normal S1, Normal S2, PMI Normal Abdomen: Bowel Sounds Present, Soft, Non Tender, Non-Distended, No Hepato- splenomegaly Extremities: No clubbing, No cyanosis, No edema Skin: No rashes, No breakdown Lymphatic: No Cervical, Supraclavicular, or Inguinal Adenopathy Neurological: Cranial nerves II-XII grossly intact, Neuro grossly intact Psych/Mental Status: Normal Affect, Appropriate Laboratory Results 01/11/20 10:40: COVID-19 (PAPI) Not Detected 01/11/20 11:43: POC Glucose 163 H 01/11/20 16:33: POC Glucose 111 H 01/11/20 23:07: POC Glucose 137 H 01/12/20 04:52: Blood Type O POSITIVE, Antibody Screen NEGATIVE 01/12/20 06:21: POC Glucose 141 H 01/12/20 10:07: POC Glucose 131 H Current Medications Acetaminophen (Tylenol) 650 mg PO Q6H PRN PRN PRN Reason: Pain Score 1-10/Temp > 100.7 F Aripiprazole (Abilify) 10 mg PO DAILY [facility] Last Admin: 01/11/20 08:03 Dose: 10 mg Documented by: Atorvastatin Calcium (Lipitor) 20 mg PO QHS [facility] Last Admin: 01/11/20 22:55 Dose: 20 mg Documented by: Benzonatate (Tessalon Perle) 100 mg PO TID PRN PRN PRN Reason: cough Cyclobenzaprine HCl (Flexeril) 5 mg PO TID PRN PRN PRN Reason: Pain Score 1-10/10 Dextrose (D50w Syringe) 0 gm IV X1 PRN; Protocol PRN Reason: Hypoglycemia Duloxetine HCl (Cymbalta) 60 mg PO DAILY [facility] Last Admin: 01/11/20 08:00 Dose: 60 mg Documented by: Enteral Nutritional Formula (Ensure Surgery) 237 ml PO TIDCM [facility] Famotidine (Pepcid) 20 mg PO DAILY [facility] Gabapentin (Neurontin) 300 mg PO QHS [facility] Last Admin: 01/11/20 22:55 Dose: 300 mg Documented by: Glucagon () 1 mg IM .X1 PRN PRN Reason: Hypoglycemia Sodium Chloride () 250 mls @ 15 mls/hr IV .[id number] PRN PRN Reason: Saline Flush Sodium Chloride () 250 mls @ 15 mls/hr IV .[id number] PRN PRN Reason: Additional IVPB Infusion Cefazolin Sodium () 1 gm in 50 mls @ 150 mls/hr IV Q8H [facility] Stop: 01/13/20 00:19 Insulin Glargine (Lantus (Bkc)) 50 units SC DAILY [facility] Last Admin: 01/11/20 08:03 Dose: 50 u Documented by: Insulin Human Lispro (Humalog Kwikpen (Bkc)) 0 unit SC ACHS [facility]; Protocol Last Admin: 01/12/20 07:02 Dose: Not Given Documented by: Loratadine (Claritin) 10 mg PO DAILY [facility] Last Admin: 01/11/20 08:00 Dose: 10 mg Documented by: Losartan Potassium (Cozaar) 12.5 mg PO DAILY [facility] Last Admin: 01/11/20 08:00 Dose: 12.5 mg Documented by: Metoprolol Tartrate (Lopressor (Beta Guzman)) 50 mg PO BID [facility] Last Admin: 01/11/20 22:55 Dose: 50 mg Documented by: Morphine Sulfate () 2 mg IV Q3H PRN PRN PRN Reason: Pain Score 6-10/10 Last Admin: 01/12/20 03:57 Dose: 2 mg Documented by: [facility]) [facility] Last Admin: 01/11/20 07:59 Dose: 1 tablet Documented by: Nicotine (Nicoderm Cq (Pbkc)) 21 mg TRANSDERM. DAILY [facility] Last Admin: 01/11/20 08:01 Dose: 21 mg Documented by: Ondansetron HCl (Zofran) 4 mg IV Q8H PRN PRN PRN Reason: NAUSEA/VOMITING Oxycodone HCl (Oxyir) 5 mg PO Q4H PRN PRN PRN Reason: Pain Score 4-5/10 Pantoprazole Sodium (Protonix) 20 mg PO DAILY [facility] Last Admin: 01/11/20 08:01 Dose: 20 mg Documented by: Senna/Docusate Sodium (Senokot-S, Yessica-Colace) 2 tablet PO BID PRN PRN PRN Reason: Constipation Sodium Chloride () 10 - 40 ml IV UD PRN PRN Reason: SALINE FLUSH Last Admin: 01/12/20 06:12 Dose: 10 ml Documented by: Medical Necessity - Tobacco Use Smoking Status: Current some day smoker Tobacco Use: Cigarettes Assessment/Plan All Active Problems (Last Updated 01/11/20 @ 07:[address] Walter Winkler MD) Femoral neck fracture (Acute) This is a 64 years old female patient was directly admitted from outside facility for right hip pain after she had mechanical fall, found to have displaced subcapital right femoral neck fracture, underwent total hip replacement. #1 acute traumatic displaced subcapital right femoral neck fracture: Status post right total hip replacement, postoperative day 0. Patient just came back from surgery. Her vital signs are stable. She has no significant pain at this time. She is on IV morphine and OxyIR PRN for pain. She is on IV cefazolin for perioperative prophylaxis. Orthopedic surgery on the case. Plan to repeat CBC and BMP tomorrow morning, PT OT evaluation and treatment when appropriate. #2 type 2 diabetes mellitus: Blood sugar has been stable. Continue Lantus and insulin sliding scale. #3 hypertension: Blood pressure stable, continue losartan and metoprolol. #4 paroxysmal atrial fibrillation: She is in sinus rhythm, rate is controlled. Continue metoprolol for rate control. Eliquis held for surgery. #5 CAD status post CABG/stents: Stable, no complaints. EKG reviewed, no acute changes. Continue statins, losartan and metoprolol. #6 anxiety/depression: Stable, continue Abilify and Cymbalta. #7 DVT prophylaxis: SCDs. This note was generated with [employer] dictation software. It may contain incorrect words, spelling, and punctuation that were not noted in checking the note before signing. Inpatient E&M: 81624 Subs Hosp L2
[2020-01-12] MEDS: Metoprolol Tartrate 50 MG Tablet PO ×2 (11:36→21:07)
[2020-01-12] MEDS: Losartan Potassium 25 MG Tablet 12.5 MG PO (11:36)
[2020-01-12] MEDS: ARIPiprazole 10 MG Tablet PO (11:37)
[2020-01-12] MEDS: Loratadine 10 MG Tablet PO (11:37)
[2020-01-12] MEDS: DULoxetine Hcl 60 MG Capsule PO (11:37)
[2020-01-12] MEDS: Pantoprazole Sodium 20 MG Tablet PO (11:37)
[2020-01-12] MEDS: Multivitamins,Therapeutic Tablet 1 TABLET PO (11:37)
[2020-01-12] MEDS: Famotidine 20 MG Tablet PO (11:43)
[2020-01-12] MEDS: Ensure Surgery 237 ML LIQUID PO ×2 (11:49→16:19)
[2020-01-12 11:50] LABS: Bedside Glucose 134 mg/dL (70-110)
--- NOTE | 2020-01-12 14:51 | CASEMGMT ---
Social Work Note Pt's daughter Reina at [facility] and requesting to speak to this worker. SW in to speak with Reina and pt. Reina asked about where and when pt will be discharged. SW explained that [facility] doesn't have a bed until Friday so if the physician were to discharge pt before Friday pt would need to go to TCU as they have a bed available for pt when pt is medically ready. SW informed Reina that it just depends when pt is discharged that will determine where pt goes. SW informed Reina that physician cannot keep pt until Friday just for a bed to open up on [facility]. SW explained visitation policy for both [facility] and [facility]. Reina states that if pt goes to [facility] she would like to add her brother, son of pt, Yash Love to the visitation person as she lives an hour away and she will not be able to visit pt. SW informed pt that he could be added if pt were to go to [facility]. Reina states understanding, denied additional needs or concerns at this time. Plan: [facility] vs [facility] Lyn Arora VERSE WRITER, BELL STAFF
--- NOTE | 2020-01-12 15:15 | NURSING ---
discussion visitor with coding clerks supervisor valeriy. aware pt's daughter Reina is a whom will no longer be able to visit and had asked about switching visitors when the patient is discharged. aware per primary RN Reina stated today is the last day she will be able to visit. Family & patient requesting switch in visitor be made today as unclear day of discharge. aware switch approved per coding clerks supervisor. registration updated with contact info of patient's son.
--- NOTE | 2020-01-12 15:55 | NURSING ---
talked with Reina WARD regarding visitor as recieved call regarding Yash Kate pt's son requesting to visit and aware this had already been changed to a son Khari Kline after attempt had been made to call Reina without success and pt had verbalized Khari would be the son it would be changed to. Aware per Reina WARD that visitor is to be switched to Yash Love not Khari Kline stating Khari does not have a liscense and patient is not to discharge with him. Aware per Reina WARD that pt does have short term memory loss related to a stroke. Reassured Reina new contact information would be updated and would discuss second person of kin as Yash Love not Khari Kline.
[2020-01-12] MEDS: Cefazolin 1 GM/50 ML BAG IV (16:19)
[2020-01-12] MEDS: Insulin Lispro 100 UNIT/ML INSULN.PEN SC ×2 (16:23→21:06)
[2020-01-12 16:31] LABS: Bedside Glucose 237 mg/dL (70-110)
[2020-01-12] MEDS: oxyCODONE 5 MG Tablet PO (21:06)
[2020-01-12] MEDS: Atorvastatin Calcium 20 MG Tablet PO (21:06)
[2020-01-12] MEDS: Gabapentin 300 MG Capsule PO (21:06)
[2020-01-12 21:15] LABS: Bedside Glucose 239 mg/dL (70-110)
[2020-01-13] VITALS (13 sets, daily range): BP systolic 104–137; BP diastolic 42–100; PULSE 68–91; RESP 16–20; TEMP 37.3–37.6; O2SAT 94–100; BMI 27.8
[2020-01-13] MEDS: Cefazolin 1 GM/50 ML BAG IV (00:01)
[2020-01-13 05:41] LABS: Hematocrit 39.2 % (37-47); Hemoglobin 13.3 g/dL (12.0-15.0); Mean Corp Hgb Conc 33.9 g/dL (32-36); Mean Corpuscular Hgb 31.7 pg (27.0-32.0); Mean Corpuscular Volume 93.6 fL (81-99); Mean Platelet Vol. 10.7 fl (6.2-12.0); Platelet Count 174 K/mm3 (150-450); RBC Distribution Width CV 12.2 % (11.6-14.6); RBC Distribution Width SD 41.8 fl (35.1-43.9); Red Blood Count 4.19 M/mm3 (4.2-5.4)
[2020-01-13 05:59] LABS: Anion Gap 6 (5-15); BUN 21 mg/dL (7-18); BUN/Creat Ratio 23.6 RATIO (10-20); Calcium,Total 8.4 mg/dL (8.5-10.1); Chloride 102 mmol/L (98-107); Creatinine, Serum 0.89 mg/dL (0.55-1.02); EST Glomerular Filtration Rate 68 mL/min (>60); Est Glom Filt Rate - Afr Amer 82 mL/min (>60); Estimated Creatinine Clearance 63.57 ml/min; Glucose 94 mg/dL (74-106); Potassium 3.8 mmol/L (3.5-5.1); Sodium Level 137 mmol/L (136-145)
[2020-01-13 06:45] LABS: Bedside Glucose 103 mg/dL (70-110)
--- NOTE | 2020-01-13 08:30 | PN_ITS ---
Patient Problems: Active and Suspected Problems (Last Updated 01/11/20 @ 07:[address] Walter Winkler MD) Femoral neck fracture (Acute) Subjective: Chief complaint: Follow-up after admission for acute traumatic displaced subcapital right femoral neck fracture status post right total hip replacement. Patient seen and examined. No acute events overnight. She states that she does have right hip pain when she moves, no pain at rest. Denied other complaints. Her vital signs are stable. - Physical Exam Vitals/I&O's: Vital Signs Temp Pulse Resp BP Pulse Ox 99.6 F H 79 20 H 117/53 L 97 01/13/20 03:15 01/13/20 04:52 01/13/20 03:15 01/13/20 03:15 01/13/20 03:15 Oxygen Flow Rate (L/min) 2 Oxygen Delivery Method Nasal Cannula Weight: 182 lb 12.211 oz Body Mass Index (BMI) 27.8 Finger Stick Blood Glucose 132 Intake and Output for Last 24 Hours 01/11/20 01/12/20 01/13/20 23:59 23:59 23:59 Intake Total 200 / 450 2751.42 / 2751.42 426.25 / 426.25 Output Total 2050 / 2500 2300 / 2300 550 / 550 Balance -1850 / -2050 451.42 / 451.42 -123.75 / -123.75 General: Alert, Oriented x3, Cooperative, No apparent distress HEENT: Atraumatic, PERRLA, EOMI, Normocephalic Oral: Moist Mucosa, No Gingival or Mucosal Lesions/ Ulcerations Neck: Supple, No JVD, Negative Carotid Bruits, Trachea Midline, Thyroid Normal Size and Texture Lungs: Clear to auscultation, Normal air movement, No rhonchi, No wheeze, No rales Cardiovascular: Regular rate, Regular Rhythm, Normal S1, Normal S2, PMI Normal Abdomen: Bowel Sounds Present, Soft, Non Tender, Non-Distended, No Hepato- splenomegaly Extremities: No clubbing, No cyanosis, No edema Skin: No rashes, No breakdown Lymphatic: No Cervical, Supraclavicular, or Inguinal Adenopathy Neurological: Cranial nerves II-XII grossly intact, Neuro grossly intact Psych/Mental Status: Normal Affect, Appropriate, Alert and oriented to time, place, person, mood and affect Laboratory Results 01/12/20 10:07: POC Glucose 131 H 01/12/20 11:35: POC Glucose 134 H 01/12/20 16:20: POC Glucose 237 H 01/12/20 21:05: POC Glucose 239 H 01/13/20 05:00: WBC 11.0, RBC 4.19 L, Hgb 13.3, Hct 39.2, MCV 93.6, MCH 31.7, MCHC 33.9, RDW Std Deviation 41.8, RDW Coeff of Zakiya 12.2, Plt Count 174, MPV 10.7 01/13/20 05:00: Sodium 137, Potassium 3.8, Chloride 102, Carbon Dioxide 29.0, Anion Gap 6, BUN 21 H, Creatinine 0.89, Estim Creat Clear Calc 63.57, Est GFR (MDRD) Af Amer 82, Est GFR (MDRD) Non-Af 68, BUN/Creatinine Ratio 23.6 H, Glucose 94, Calcium 8.4 L 01/13/20 06:41: POC Glucose 103 Current Medications Acetaminophen (Tylenol) 650 mg PO Q6H PRN PRN PRN Reason: Pain Score 1-10/Temp > 100.7 F Aripiprazole (Abilify) 10 mg PO DAILY [facility] Last Admin: 01/12/20 11:37 Dose: 10 mg Documented by: Atorvastatin Calcium (Lipitor) 20 mg PO QHS [facility] Last Admin: 01/12/20 21:06 Dose: 20 mg Documented by: Benzonatate (Tessalon Perle) 100 mg PO TID PRN PRN PRN Reason: cough Cyclobenzaprine HCl (Flexeril) 5 mg PO TID PRN PRN PRN Reason: Pain Score 1-10/10 Dextrose (D50w Syringe) 0 gm IV X1 PRN; Protocol PRN Reason: Hypoglycemia Duloxetine HCl (Cymbalta) 60 mg PO DAILY [facility] Last Admin: 01/12/20 11:37 Dose: 60 mg Documented by: Enteral Nutritional Formula (Ensure Surgery) 237 ml PO TIDCM [facility] Last Admin: 01/12/20 16:19 Dose: 237 ml Documented by: Famotidine (Pepcid) 20 mg PO DAILY [facility] Last Admin: 01/12/20 11:43 Dose: 20 mg Documented by: Gabapentin (Neurontin) 300 mg PO QHS [facility] Last Admin: 01/12/20 21:06 Dose: 300 mg Documented by: Glucagon () 1 mg IM .X1 PRN PRN Reason: Hypoglycemia Sodium Chloride () 250 mls @ 15 mls/hr IV .[id number] PRN PRN Reason: Saline Flush Last Infusion: 01/13/20 01:10 Dose: 0 mls/hr Documented by: Sodium Chloride () 250 mls @ 15 mls/hr IV .[id number] PRN PRN Reason: Additional IVPB Infusion Insulin Glargine (Lantus ([facility])) 50 units SC DAILY [facility] Last Admin: 01/12/20 11:38 Dose: 50 u Documented by: Insulin Human Lispro (Humalog Kwikpen ([facility])) 0 unit SC ACHS [facility]; Protocol Last Admin: 01/13/20 06:46 Dose: Not Given Documented by: Loratadine (Claritin) 10 mg PO DAILY [facility] Last Admin: 01/12/20 11:37 Dose: 10 mg Documented by: Losartan Potassium (Cozaar) 12.5 mg PO DAILY [facility] Last Admin: 01/12/20 11:36 Dose: 12.5 mg Documented by: Metoprolol Tartrate (Lopressor (Beta Guzman)) 50 mg PO BID [facility] Last Admin: 01/12/20 21:07 Dose: 50 mg Documented by: Morphine Sulfate () 2 mg IV Q3H PRN PRN PRN Reason: Pain Score 6-10/10 Last Admin: 01/12/20 03:57 Dose: 2 mg Documented by: [facility]ivit[facility] ([facility]) [facility] Last Admin: 01/12/20 11:37 Dose: 1 tablet Documented by: Nicotine (Nicoderm Cq (Pb)) 21 mg TRANSDERM. DAILY [facility] Last Admin: 01/12/20 11:41 Dose: 21 mg Documented by: Ondansetron HCl (Zofran) 4 mg IV Q8H PRN PRN PRN Reason: NAUSEA/VOMITING Oxycodone HCl (Oxyir) 5 mg PO Q4H PRN PRN PRN Reason: Pain Score 4-5/10 Last Admin: 01/12/20 21:06 Dose: 5 mg Documented by: Pantoprazole Sodium (Protonix) 20 mg PO DAILY [facility] Last Admin: 01/12/20 11:37 Dose: 20 mg Documented by: Senna/Docusate Sodium (Senokot-S, Yessica-Colace) 2 tablet PO BID PRN PRN PRN Reason: Constipation Sodium Chloride () 10 - 40 ml IV UD PRN PRN Reason: SALINE FLUSH Last Admin: 01/12/20 06:12 Dose: 10 ml Documented by: Medical Necessity - Tobacco Use Smoking Status: Current some day smoker Tobacco Use: Cigarettes Assessment/Plan All Active Problems (Last Updated 01/11/20 @ 07:[address] Walter Winkler MD) Femoral neck fracture (Acute) This is a 64 years old female patient was directly admitted from outside facility for right hip pain after she had mechanical fall, found to have displaced subcapital right femoral neck fracture, underwent total hip replacement. #1 acute traumatic displaced subcapital right femoral neck fracture: Status post right total hip replacement, postoperative day 1. She is on IV morphine and OxyIR PRN for pain. She complains of pain upon movement. Her vital signs are stable. Repeat routine blood work from today reviewed, was unremarkable. Orthopedic surgery on the case. Plan: PT OT evaluation and treatment, resume Eliquis if okay with orthopedic surgery, patient will need placement to long-term facility. #2 type 2 diabetes mellitus: Blood sugar has been stable. Continue Lantus and insulin sliding scale. #3 hypertension: Blood pressure stable, continue losartan and metoprolol. #4 paroxysmal atrial fibrillation: She is in sinus rhythm, rate is controlled. Continue metoprolol for rate control. Will resume Eliquis if okay with orthopedic surgery. #5 CAD status post CABG/stents: Stable, no complaints. EKG reviewed, no acute changes. Continue statins, losartan and metoprolol. #6 anxiety/depression: Stable, continue Abilify and Cymbalta. #7 DVT prophylaxis: SCDs. This note was generated with [employer] dictation software. It may contain incorrect words, spelling, and punctuation that were not noted in checking the note before signing. Inpatient E&M: [id number] Subs Hosp L2
[2020-01-13] MEDS: Multivitamins,Therapeutic Tablet 1 TABLET PO (08:45)
[2020-01-13] MEDS: DULoxetine Hcl 60 MG Capsule PO (08:45)
[2020-01-13] MEDS: Ensure Surgery 237 ML LIQUID PO (08:45)
[2020-01-13] MEDS: Pantoprazole Sodium 20 MG Tablet PO (08:45)
[2020-01-13] MEDS: Metoprolol Tartrate 50 MG Tablet PO ×2 (08:46→22:38)
[2020-01-13] MEDS: Loratadine 10 MG Tablet PO (08:46)
[2020-01-13] MEDS: Famotidine 20 MG Tablet PO (08:46)
[2020-01-13] MEDS: Senna/Docusate Sodium 1 Tablet 2 TABLET PO (08:47)
[2020-01-13] MEDS: Losartan Potassium 25 MG Tablet 12.5 MG PO (08:47)
[2020-01-13] MEDS: Acetaminophen 325 MG Tablet 650 MG PO ×2 (08:47→14:44)
[2020-01-13] MEDS: oxyCODONE 5 MG Tablet PO ×2 (08:47→14:44)
[2020-01-13] MEDS: ARIPiprazole 10 MG Tablet PO (08:47)
--- NOTE | 2020-01-13 10:12 | PCM.PN.ORT ---
Patient Problems: Active and Suspected Problems (Last Updated 01/11/20 @ 07:[address] Walter Winkler MD) Femoral neck fracture (Acute) Subjective: The patient was sitting in bedside chair upon examination. Patient denies any chest pain, shortness of breath, dizziness, lightheadedness, nausea or vomiting, or calf pain. Pain is controlled on medications. No adverse overnight events. Patient does complain of pain in the right hip and thigh. Objective: Vital signs: Elevated blood pressure and current temperature 99.4. Patient denies any chest pain, shortness of breath Patient is able to plantarflex and dorsiflex actively. Sensation is intact to light touch to saphenous, sural, superficial and deep peroneal, and tibial distribution. Dressing is clean dry and intact. Negative Homans bilaterally, negative signs and symptoms of DVT. - Physical Exam Vitals/I&O's: Vital Signs Temp Pulse Resp BP Pulse Ox 99.4 F H 72 18 121/100 H 94 01/13/20 08:40 01/13/20 08:46 01/13/20 08:40 01/13/20 08:40 01/13/20 08:40 Oxygen Flow Rate (L/min) 2 Oxygen Delivery Method Nasal Cannula Weight: 82.9 kg Body Mass Index (BMI) 27.8 Finger Stick Blood Glucose 132 Intake and Output for Last 24 Hours 01/11/20 01/12/20 01/13/20 23:59 23:59 23:59 Intake Total 200 / 450 2751.42 / 2751.42 426.25 / 426.25 Output Total 2050 / 2500 2300 / 2300 550 / 550 Balance -1850 / -2050 451.42 / 451.42 -123.75 / -123.75 General: Alert, Oriented x3, Cooperative, No apparent distress Laboratory Results 01/12/20 11:35: POC Glucose 134 H 01/12/20 16:20: POC Glucose 237 H 01/12/20 21:05: POC Glucose 239 H 01/13/20 05:00: WBC 11.0, RBC 4.19 L, Hgb 13.3, Hct 39.2, MCV 93.6, MCH 31.7, MCHC 33.9, RDW Std Deviation 41.8, RDW Coeff of Zakiya 12.2, Plt Count 174, MPV 10.7 08/06/20 05:00: Sodium 137, Potassium 3.8, Chloride 102, Carbon Dioxide 29.0, Anion Gap 6, BUN 21 H, Creatinine 0.89, Estim Creat Clear Calc 63.57, Est GFR (MDRD) Af Amer 82, Est GFR (MDRD) Non-Af 68, BUN/Creatinine Ratio 23.6 H, Glucose 94, Calcium 8.4 L 01/13/20 06:41: POC Glucose 103 Current Medications Acetaminophen (Tylenol) 650 mg PO Q6H PRN PRN PRN Reason: Pain Score 1-10/Temp > 100.7 F Last Admin: 01/13/20 08:47 Dose: 650 mg Documented by: Apixaban (Eliquis) 5 mg PO BID [facility] Aripiprazole (Abilify) 10 mg PO DAILY [facility] Last Admin: 01/13/20 08:47 Dose: 10 mg Documented by: Atorvastatin Calcium (Lipitor) 20 mg PO QHS [facility] Last Admin: 01/12/20 21:06 Dose: 20 mg Documented by: Benzonatate (Tessalon Perle) 100 mg PO TID PRN PRN PRN Reason: cough Cyclobenzaprine HCl (Flexeril) 5 mg PO TID PRN PRN PRN Reason: Pain Score 1-10/10 Dextrose (D50w Syringe) 0 gm IV X1 PRN; Protocol PRN Reason: Hypoglycemia Duloxetine HCl (Cymbalta) 60 mg PO DAILY [facility] Last Admin: 01/13/20 08:45 Dose: 60 mg Documented by: Enteral Nutritional Formula (Ensure Surgery) 237 ml PO TIDCM [facility] Last Admin: 01/13/20 08:45 Dose: 237 ml Documented by: Famotidine (Pepcid) 20 mg PO DAILY [facility] Last Admin: 01/13/20 08:46 Dose: 20 mg Documented by: Gabapentin (Neurontin) 300 mg PO QHS [facility] Last Admin: 01/12/20 21:06 Dose: 300 mg Documented by: Glipizide (Glucotrol Xl) 10 mg PO DAILY@0800 [facility] Glucagon () 1 mg IM .X1 PRN PRN Reason: Hypoglycemia Sodium Chloride () 250 mls @ 15 mls/hr IV .[id number] PRN PRN Reason: Saline Flush Last Infusion: 01/13/20 01:10 Dose: 0 mls/hr Documented by: Sodium Chloride () 250 mls @ 15 mls/hr IV .[id number] PRN PRN Reason: Additional IVPB Infusion Insulin Glargine (Lantus (Bk)) 50 units SC DAILY [facility] Last Admin: 01/13/20 08:48 Dose: 50 u Documented by: Insulin Human Lispro (Humalog Kwikpen ([facility])) 0 unit SC ACHS [facility]; Protocol Last Admin: 01/13/20 06:46 Dose: Not Given Documented by: Loratadine (Claritin) 10 mg PO DAILY [facility] Last Admin: 01/13/20 08:46 Dose: 10 mg Documented by: Losartan Potassium (Cozaar) 12.5 mg PO DAILY [facility] Last Admin: 01/13/20 08:47 Dose: 12.5 mg Documented by: Metoprolol Tartrate (Lopressor (Beta Guzman)) 50 mg PO BID [facility] Last Admin: 01/13/20 08:46 Dose: 50 mg Documented by: Morphine Sulfate () 2 mg IV Q3H PRN PRN PRN Reason: Pain Score 6-10/10 Last Admin: 01/12/20 03:57 Dose: 2 mg Documented by: [facility]) [facility] Last Admin: 01/13/20 08:45 Dose: 1 tablet Documented by: Nicotine (Nicoderm Cq (Pbkc)) 21 mg TRANSDERM. DAILY [facility] Last Admin: 01/13/20 08:49 Dose: 21 mg Documented by: Ondansetron HCl (Zofran) 4 mg IV Q8H PRN PRN PRN Reason: NAUSEA/VOMITING Oxycodone HCl (Oxyir) 5 mg PO Q4H PRN PRN PRN Reason: Pain Score 4-5/10 Last Admin: 01/13/20 08:47 Dose: 5 mg Documented by: Pantoprazole Sodium (Protonix) 20 mg PO DAILY [facility] Last Admin: 01/13/20 08:45 Dose: 20 mg Documented by: Senna/Docusate Sodium (Senokot-S, Yessica-Colace) 2 tablet PO BID PRN PRN PRN Reason: Constipation Last Admin: 01/13/20 08:47 Dose: 2 tablet Documented by: Sodium Chloride () 10 - 40 ml IV UD PRN PRN Reason: SALINE FLUSH Last Admin: 01/12/20 06:12 Dose: 10 ml Documented by: Medical Necessity - Tobacco Use Smoking Status: Current some day smoker Tobacco Use: Cigarettes Assessment/Plan All Active Problems (Last Updated 01/11/20 @ 07:[address] Walter Winkler MD) Femoral neck fracture (Acute) 1. S/P right direct anterior total hip arthroplasty POD #1 2. Continue Pain Medications: Tylenol and OxyIR 3. DVT Prophylaxis: Okay to resume Eliquis today 4. PT/OT: Weightbearing as tolerated 5. H & H: 13.3/39.2, asymptomatic 6. Encouraged Incentive Spirometry 7. Continue postoperative medical management per medicine 8. Disposition: Orthopedically stable, okay for discharge when medically stable. Patient will require postoperative physical therapy. She can be weightbearing as tolerated with walker. Continue the Eliquis for DVT prophylaxis. Continue with Tylenol and OxyIR for pain control. Okay to remove the dressing 5 days postoperatively. It is okay to get dressing wet as long as dressing is intact to the skin. Once dressing is removed only use gentle soap and water over the incision. As the Steri-Strips fall off that is okay. She will require follow-up in [address] Taco Griffin for incision check and x-rays of her right hip. We appreciate the consult and your assistance in managing this patient postoperatively. Please contact orthopedics with any concerns or questions. Postop instructions will be placed in chart for orthopedic standpoint.
--- NOTE | 2020-01-13 10:17 | DCINST_ITS ---
Discharge Diet: No Restrictions May shower in (days): 1 - As long as dressing is intact to skin Ice area for (Minutes): 20 - Every 1-2 hours while awake Weight Bearing Status: Weight bearing as tolerated Elevate: Operative Extremity Remove Dressing in (days):: 4 - Okay to remove dressing on January 17, 2020 Additional Instructions: Continue Eliquis for DVT prophylaxis Continue with Tylenol for primary pain control and use oxycodone for breakthrough pain Continue with physical therapy for range of motion and strengthening exercises. Continue with ambulatory assistance with walker and can transition to cane when appropriate from physical therapy Okay to remove dressing on January 17, 2020. Once dressing is removed only use gentle soap and water over the incision. No scar tissue massage until 6 weeks postoperatively[address] not place any ointments, Neosporin, alcohol pads, salves on the incision for 6 weeks postoperatively. Allergies/Adverse Reactions: Allergies No Known Allergies Allergy (Verified 01/04/20 13:43) Medications to take at Discharge Aspirin [Aspirin EC] 81 mg PO DAILY 12/26/17 cyclobenzaprine 10 mg tablet 5 mg PO TID PRN PRN #30 tab 02/02/19 Glipizide [Glipizide ER] 10 mg PO DAILY 03/02/19 Metoprolol Tartrate [Lopressor (beta wally)] 50 mg PO BID 03/02/19 Multivitamin with Folic Acid [[facility] One Daily Essential Tablet] 400 mcg PO DAILY 03/02/19 duloxetine 30 mg capsule,delayed release 60 mg PO DAILY #90 cap 07/07/19 benzonatate 100 mg capsule 100 mg PO TID PRN #30 cap 12/07/19 Apixaban [Eliquis] 5 mg PO BID 01/11/20 Aripiprazole 10 mg PO DAILY 01/11/20 Atorvastatin Calcium [Lipitor] 40 mg PO QHS 01/11/20 Cetirizine HCl 10 mg PO DAILY 01/11/20 Empagliflozin [Jardiance] 25 mg PO DAILY 01/11/20 Gabapentin 300 mg PO QHS 01/11/20 Insulin Aspart Prot/Insuln Asp [Insulin Aspart Prot-Insuln Asp] 70 unit SUBCUT DAILY 01/11/20 Losartan Potassium 12.5 mg PO DAILY 01/11/20 Omeprazole 20 mg PO DAILY 01/11/20 Primary Care Physician: Obed Scott MD [Primary Care Provider] - Test Results: Test results from this visit will be discussed in further detail at your follow- up appointment, if applicable. Please Follow Up With: Sean Griffin MD When: Will require 2-week follow-up for incision check and x-rays
[2020-01-13] MEDS: cycloBENZAPRine HCl 10 MG Tablet 5 MG PO (10:53)
--- NOTE | 2020-01-13 11:08 | CASEMGMT ---
Addendum entered by Lyn Arora 01/13/20 16:13: SW attempted to call pt's daughter Reina to update on likely discharge tomorrow to TCU, no answer, left voicemail. Original Note: Social Work Note Pt is likely ready for discharge tomorrow. SW placed a call to Aleshia in TCU and updated her pt will likely be coming to TCU tomorrow. Plan: TCU tomorrow Lyn Arora [employer], SEATING [employer]
[2020-01-13] MEDS: Insulin Lispro 100 UNIT/ML INSULN.PEN SC ×2 (11:52→22:47)
[2020-01-13 12:01] LABS: Bedside Glucose 364 mg/dL (70-110)
[2020-01-13 16:55] LABS: Bedside Glucose 144 mg/dL (70-110)
[2020-01-13] MEDS: Atorvastatin Calcium 20 MG Tablet PO (22:38)
[2020-01-13] MEDS: APIXABAN 5 MG TABLET PO (22:38)
[2020-01-13] MEDS: Gabapentin 300 MG Capsule PO (22:38)
[2020-01-14] VITALS (8 sets, daily range): BP systolic 126–128; BP diastolic 56–69; PULSE 68–86; RESP 16; TEMP 36.6–36.9; O2SAT 91–100
[2020-01-14 00:05] LABS: Bedside Glucose 220 mg/dL (70-110)
[2020-01-14 06:13] LABS: Hematocrit 39.1 % (37-47); Mean Corp Hgb Conc 33.2 g/dL (32-36); Mean Corpuscular Hgb 31.1 pg (27.0-32.0); Mean Corpuscular Volume 93.5 fL (81-99); Platelet Count 182 K/mm3 (150-450); RBC Distribution Width CV 12.2 % (11.6-14.6); RBC Distribution Width SD 42.1 fl (35.1-43.9); Red Blood Count 4.18 M/mm3 (4.2-5.4); White Blood Count 9.9 K/mm3 (4.4-11.0)
[2020-01-14 06:51] LABS: Bedside Glucose 146 mg/dL (70-110)
--- NOTE | 2020-01-14 08:17 | PCM.TXEXTCAR ---
- Diet 01/12/20 11:44 Diet: Cardiac: Carb-Controlled Is pt able to select menu?: Yes - Routine Orders/Code Status Code Status: Full Code - Wound(s) RIGHT HIP Wound Type: Surgical Incision - Suggestions for Active Care Change Position every (hours): 3 Hours to sit in a chair: 2 Times a day to sit in chair: 3 - Therapies Weight Bearing: Weight bearing as tolerated Physical Therapy: Eval and Treat Occupational Therapy: Eval and Treat - Allergies/Procedures Done in Hospital Allergies/Adverse Reactions: Allergies No Known Allergies Allergy (Verified 01/04/20 13:43) - Type of Care/Length of Stay Estimated LOS: Convalescent Care Less Than 30 days Type of Care Needed: Skilled Rehab Potential: Good Prognosis: Good - Additional Orders/Day of Discharge H&P will serve as current which was dated: 01/11/20 Day of Discharge: 01/14/20 - Follow Up Care Primary Care Physician: Obed Scott MD [Primary Care Provider] - Please follow up with your Primary Care Physician in: 1 week. Please Follow Up With: Sean Griffin MD When: Will require 2-week follow-up for incision check and x-rays
[2020-01-14] MEDS: Ensure Surgery 237 ML LIQUID PO (08:24)
[2020-01-14] MEDS: Multivitamins,Therapeutic Tablet 1 TABLET PO (08:24)
[2020-01-14] MEDS: Metoprolol Tartrate 50 MG Tablet PO (08:25)
[2020-01-14] MEDS: glipiZIDE XL 5 MG Tablet 10 MG PO (08:25)
[2020-01-14] MEDS: DULoxetine Hcl 60 MG Capsule PO (08:25)
[2020-01-14] MEDS: ARIPiprazole 10 MG Tablet PO (08:26)
[2020-01-14] MEDS: Loratadine 10 MG Tablet PO (08:26)
[2020-01-14] MEDS: Pantoprazole Sodium 20 MG Tablet PO (08:26)
[2020-01-14] MEDS: APIXABAN 5 MG TABLET PO (08:27)
[2020-01-14] MEDS: Losartan Potassium 25 MG Tablet 12.5 MG PO (08:27)
[2020-01-14] MEDS: Famotidine 20 MG Tablet PO (08:28)
--- NOTE | 2020-01-14 09:11 | CASEMGMT ---
Social Work Note Pt is medically ready for discharge, able to discharge to TCU today. SW placed a call to Yasmin in TCU and updated her. SW placed a call to pt's daughter Reina ([phone]) to update on discharge. Plan: TCU today Lyn Arora [employer], HANDBOOK WRITER
--- NOTE | 2020-01-14 10:26 | NURSING ---
pt transferred to tcu. son at bedside.
--- NOTE | 2020-01-14 10:54 | DS.PCM_ITS ---
Discharge Date and Diagnosis Date of Admission: 01/11/20 Date of Discharge: 01/14/20 - Primary Discharge Diagnosis Acute Problems: Acute traumatic displaced subcapital right femoral neck fracture, status post right total hip replacement. - Secondary Discharge Diagnosis Chronic Problems: Chronic Problems (Last Updated 01/11/20 @ 07:[address] Walter Winkler MD) Back pain (Chronic) Paroxysmal atrial flutter (Chronic) Depression with anxiety (Chronic) CVA (cerebral vascular accident) (Chronic) Stage 3 chronic kidney disease due to type 2 diabetes mellitus (Chronic) Polyneuropathy due to type 2 diabetes mellitus (Chronic) Hyperlipidemia (Chronic) Essential (primary) hypertension (Chronic) History of coronary artery stent placement (Chronic 04/06/11) BMS to the LCX w/ Itnegrity 4 x 15 mm 04/06/2011 Type 2 diabetes mellitus (Chronic) Atherosclerotic heart disease of [place] coronary artery without angina pectoris (Chronic) BMS to the LCX w/ Itnegrity 4 x 15 mm 04/06/2011 Ventricular septal defect (Chronic) Paroxysmal atrial fibrillation (Chronic) Hospital Course and Treatment Imaging Results: Clinical Impression(s) from Imaging Studies Chest X-Ray 01/11/20 10:51 IMPRESSION: Normal x-ray examination of the chest. Electronically Signed: Steve Holloway at 15:11 EDT , Service support , Hip/Pelvis X-Ray 01/12/20 08:56 IMPRESSION: Intraoperative imaging provided for right total hip replacement. Electronically Signed: Steve Holloway at 10:44 EDT , Service support , Hip X-Ray 01/12/20 10:15 IMPRESSION: Status post right total hip replacement. There is good alignment. Postoperative soft tissue changes. Electronically Signed: Steve Holloway at 11:10 EDT , Service support , Dr. Griffin, orthopedic surgery. Operations: total hip replacement Procedures: EKG Summary of Care Provided: Patient seen and examined on the day of discharge and the bed to be stable to be discharged to TCU. Apart from right hip pain which is manageable with the pain medication, no other complaints. Her vital signs are stable. The patient is a 64 year old F with admitted directly from outside facility for right hip pain after she had mechanical fall when she was found to have acute traumatic displaced subcapital right femoral neck fracture. Patient underwent surgical repair of the fracture with a right total hip replacement which was done by Dr. Griffin on January 12, 2020. Surgery was postponed for 1 day because patient was on Eliquis for history of paroxysmal atrial fibrillation. Preoperatively and postoperatively, routine blood work was unremarkable. EKG revealed no acute segment changes or cardiac arrhythmias. Patient did have a history of paroxysmal atrial fibrillation but her heart rate has been stable throughout admission. And other chronic medical problems remained stable. She was treated with morphine and OxyIR PRN for pain. Her postoperative course was uneventful without significant complications. Patient did well with physical compression therapy. Patient discharged to TCU in a stable condition, discharged on OxyIR PRN for pain, restarted back on Eliquis, continued on her previous home medications without any changes, orthopedic surgery recommended weightbearing ambulation with walker, plan to follow-up with orthopedic surgery in 2 weeks, recommended follow-up with PCP in 1 week. - Physical Exam Vitals/I&O's: Vital Signs Temp Pulse Resp BP Pulse Ox 98.4 F 86 16 126/69 H 91 01/14/20 07:38 01/14/20 09:03 01/14/20 07:38 01/14/20 07:38 01/14/20 08:08 Oxygen Flow Rate (L/min) 4 Oxygen Delivery Method Room Air Weight: 182 lb 12.211 oz Body Mass Index (BMI) 27.8 Finger Stick Blood Glucose 132 Intake and Output for Last 24 Hours 01/12/20 01/13/20 01/14/20 23:59 23:59 23:59 Intake Total 2751.42 / 2751.42 626.25 / 626.25 300 / 300 Output Total 2300 / 2300 850 / 850 0 / 0 Balance 451.42 / 451.42 -223.75 / -223.75 300 / 300 General: Alert, Oriented x3, Cooperative, No apparent distress HEENT: Atraumatic, PERRLA, EOMI, Normocephalic Oral: Moist Mucosa, No Gingival or Mucosal Lesions/ Ulcerations Neck: Supple, No JVD, Negative Carotid Bruits, Trachea Midline, Thyroid Normal Size and Texture Lungs: Clear to auscultation, Normal air movement, No rhonchi, No wheeze, No rales, Diminished Cardiovascular: Regular rate, Regular Rhythm, Normal S1, Normal S2, PMI Normal Abdomen: Bowel Sounds Present, Soft, Non Tender, Non-Distended, No Hepato- splenomegaly Extremities: No clubbing, No cyanosis, No edema Skin: No rashes, No breakdown Lymphatic: No Cervical, Supraclavicular, or Inguinal Adenopathy Neurological: Cranial nerves II-XII grossly intact, Neuro grossly intact Psych/Mental Status: Normal Affect, Appropriate Laboratory Results 01/13/20 11:50: POC Glucose 364 H 01/13/20 16:46: POC Glucose 144 H 01/13/20 22:43: POC Glucose 220 H 01/14/20 06:04: WBC 9.9, RBC 4.18 L, Hgb 13.0, Hct 39.1, MCV 93.5, MCH 31.1, MCHC 33.2, RDW Std Deviation 42.1, RDW Coeff of Zakiya 12.2, Plt Count 182, MPV 10.0 01/14/20 06:43: POC Glucose 146 H Discharge Diet: No Restrictions May shower in (days): 1 - As long as dressing is intact to skin Ice area for (Minutes): 20 - Every 1-2 hours while awake Weight Bearing Status: Weight bearing as tolerated Keep extremity elevated above heart level: Operative Extremity Remove Dressing in (days):: 4 - Okay to remove dressing on January 17, 2020 Home Medications: Medications to take at Discharge Aspirin [Aspirin EC] 81 mg PO DAILY 12/26/17 cyclobenzaprine 10 mg tablet 5 mg PO TID PRN PRN #30 tab 02/02/19 Glipizide [Glipizide ER] 10 mg PO DAILY 03/02/19 Metoprolol Tartrate [Lopressor (beta wally)] 50 mg PO BID 03/02/19 Multivitamin with Folic Acid [[facility]vs One Daily Essential Tablet] 400 mcg PO DAILY 03/02/19 duloxetine 30 mg capsule,delayed release 60 mg PO DAILY #90 cap 01/29/20 benzonatate 100 mg capsule 100 mg PO TID PRN #30 cap 12/07/19 Apixaban [Eliquis] 5 mg PO BID 01/11/20 Aripiprazole 10 mg PO DAILY 01/11/20 Atorvastatin Calcium [Lipitor] 40 mg PO QHS 01/11/20 Cetirizine HCl 10 mg PO DAILY 01/11/20 Empagliflozin [Jardiance] 25 mg PO DAILY 01/11/20 Gabapentin 300 mg PO QHS 01/11/20 Insulin Aspart Prot/Insuln Asp [Insulin Aspart Prot-Insuln Asp] 70 unit SUBCUT DAILY 01/11/20 Losartan Potassium 12.5 mg PO DAILY 01/11/20 Omeprazole 20 mg PO DAILY 01/11/20 Oxycodone [Oxyir] 5 mg PO Q6H PRN PRN 5 Days #20 tab 01/14/20 Senna/Docusate Sodium [Senokot-S] 2 tab PO BID PRN PRN #1 tab 01/14/20 Following Prescriptions Were Given to Patient: Oxycodone [Oxyir] 5 mg PO Q6H PRN PRN 5 Days #20 tab PRN Reason: Pain Score 4-5/10 Prescription Printed Senna/Docusate Sodium [Senokot-S] 2 tab PO BID PRN PRN #1 tab PRN Reason: Constipation Primary Care Physician: Obed Scott MD [Primary Care Provider] - Please follow up with your Primary Care Physician in: 1 week. Please Follow Up With: Sean Griffin MD When: Will require 2-week follow-up for incision check and x-rays Additional Instructions: Continue Eliquis for DVT prophylaxis Continue with Tylenol for primary pain control and use oxycodone for breakthrough pain Continue with physical therapy for range of motion and strengthening exercises. Continue with ambulatory assistance with walker and can transition to cane when appropriate from physical therapy Okay to remove dressing on January 17, 2020. Once dressing is removed only use gentle soap and water over the incision. No scar tissue massage until 6 weeks postoperatively[address] not place any ointments, Neosporin, alcohol pads, salves on the incision for 6 weeks postoperatively. Disposition: Longterm facility Minutes spent on discharge:: 32 Patient Condition:: Stable Medical Necessity - Tobacco Use Smoking Status: Current some day smoker Tobacco Use: Cigarettes Meaningful Use Info Meaningful Use Diagnoses (Choose all that apply): None applicable Inpatient E&M: 72969 Disch Hosp
== END 2020-01-14 10:33 | disposition skilled nursing facility (03) | DRG 470 ==
PROVIDERS: Orthopaedic Surgery; Specialist; Admitting Provider Hospitalist; PCP Internal Medicine; Visit Provider Hospitalist
PROC: (CPT 27284; principal; 2020-01-12 07:45)
DX: S72.011A Unspecified intracapsular fracture of right femur, initial encounter for closed fracture (principal); I48.92 Unspecified atrial flutter; Q21.0 Ventricular septal defect; M16.11 Unilateral primary osteoarthritis, right hip; W54.1XXA Struck by dog, initial encounter; Y93.9 Activity, unspecified; Y92.9 Unspecified place or not applicable; E78.5 Hyperlipidemia, unspecified; I25.10 Atherosclerotic heart disease of native coronary artery without angina pectoris; I48.0 Paroxysmal atrial fibrillation; E66.9 Obesity, unspecified; E11.42 Type 2 diabetes mellitus with diabetic polyneuropathy; F41.8 Other specified anxiety disorders; I12.9 Hypertensive chronic kidney disease with stage 1 through stage 4 chronic kidney disease, or unspecified chronic kidney disease; E11.22 Type 2 diabetes mellitus with diabetic chronic kidney disease; E11.65 Type 2 diabetes mellitus with hyperglycemia; N18.3 Chronic kidney disease, stage 3 (moderate); F17.210 Nicotine dependence, cigarettes, uncomplicated; M19.90 Unspecified osteoarthritis, unspecified site; Z79.82 Long term (current) use of aspirin; Z79.01 Long term (current) use of anticoagulants; Z86.73 Personal history of transient ischemic attack (TIA), and cerebral infarction without residual deficits; Z68.27 Body mass index [BMI] 27.0-27.9, adult; Z79.4 Long term (current) use of insulin; Z79.899 Other long term (current) drug therapy; Z87.440 Personal history of urinary (tract) infections; Z95.5 Presence of coronary angioplasty implant and graft
CPT/HCPCS: 36415; 71045; 73501; 73502; 76000; 80048; 82306; 82962; 85025; 85027; 85610; 86850; 86900; 86901; 87635; 88305; 88311; 93005; 94799; 97110; 97116; 97163; 97166; 97530; 99251; C1776; J7050; J7120; A4216; G0463; J2405; U0003

== ENCOUNTER 2020-01-14 10:55 | Inpatient (IN) | payer MEDICARE, SELFPAY ==
[2020-01-12 06:14] VITALS: BMI 27.8
[2020-01-14 11:04] VITALS: BP 143/77; PULSE 75; RESP 20; TEMP 37.1; O2SAT 91
[2020-01-14 11:07] VITALS: BMI 28.3
[2020-01-14 11:32] VITALS: BMI 28.4
--- NOTE | 2020-01-14 14:19 | HP.PCM_ITS ---
Problem List (1) Debility Status: Acute (2) Closed right hip fracture Status: Acute (3) Diabetes mellitus Status: Chronic (4) Hypertension Status: Chronic (5) Coronary artery disease Status: Chronic (6) Atrial fibrillation Status: Chronic (7) Muscle spasm Status: Chronic (8) Major depression Status: Chronic (9) Cough Status: Chronic (10) Allergic rhinitis Status: Chronic (11) Diabetic polyneuropathy Status: Chronic (12) GERD (gastroesophageal reflux disease) Status: Chronic (13) Tobacco abuse Status: Chronic (14) Hyperlipidemia Status: Chronic Qualifiers: History of Present Illness Date of Admission: 01/14/20 Chief Complaint: Here for rehabilitation, strengthening, prior to discharge home alone. 01/11/2020 The patient is a 64 year old Female with below past medical history directly admitted to [facility] after fall, right hip fracture from outside hospital. Hold Eliquis. Pain control with oxycodone, morphine IV. Antiemetics, bowel protocol. Risk of surgery above average. 01/11/2020 EKG normal sinus rhythm, ST&T wave abnormality, consider lateral isc hemia. 01/11/2020 Chest X-ray normal. 01/12/2020 Dr. Griffin performed right direct anterior total hip replacement. 01/12/2020 Lantus, sliding scale insulin for Diabetes Mellitus II. Sequential compression devices for DVT prophylaxis. 01/13/2020 Oxycodone, morphine IV for pain control. [facility] Resume Eliquis. Weight bearing as tolerated with walker. 01/14/2020 Admit to TCU with debility, here for rehabilitation, strengthening, prior to discharge home alone. Past Medical History Past Medical History (Chronic Problems): Chronic Problems (Last Updated 01/11/20 @ 07:[address] Walter Winkler MD) Diabetes mellitus (Chronic) Hypertension (Chronic) Coronary artery disease (Chronic) Atrial fibrillation (Chronic) Muscle spasm (Chronic) Major depression (Chronic) Cough (Chronic) Allergic rhinitis (Chronic) Diabetic polyneuropathy (Chronic) GERD (gastroesophageal reflux disease) (Chronic) Tobacco abuse (Chronic) Back pain (Chronic) Paroxysmal atrial flutter (Chronic) Depression with anxiety (Chronic) CVA (cerebral vascular accident) (Chronic) Stage 3 chronic kidney disease due to type 2 diabetes mellitus (Chronic) Polyneuropathy due to type 2 diabetes mellitus (Chronic) Hyperlipidemia (Chronic) Essential (primary) hypertension (Chronic) History of coronary artery stent placement (Chronic 04/06/11) BMS to the LCX w/ Itnegrity 4 x 15 mm 04/06/2011 Type 2 diabetes mellitus (Chronic) Atherosclerotic heart disease of [place] coronary artery without angina pectoris (Chronic) BMS to the LCX w/ Itnegrity 4 x 15 mm 04/06/2011 Ventricular septal defect (Chronic) Paroxysmal atrial fibrillation (Chronic) Medical History: Medical History (Last Updated 01/11/20 @ 07:[address] Wlater Winkler MD) Hyperlipidemia (Chronic) E78.5 Essential (primary) hypertension (Chronic) I10 Type 2 diabetes mellitus (Chronic) E11.9 Atherosclerotic heart disease of [place] coronary artery without angina pectoris (Chronic) I25.10 BMS to the LCX w/ Itnegrity 4 x 15 mm 04/06/2011 Ventricular septal defect (Chronic) Q21.0 Paroxysmal atrial fibrillation (Chronic) I48.0 History of stroke Z86.73 Seasonal allergies J30.2 Depression F32.9 History of ischemic multifocal multiple vascular territories stroke Z86.73 Obesity E66.9 Allergies No Known Allergies Allergy (Verified 01/14/20 11:46) Home Medications: Ambulatory Orders Medication Instructions Recorded Aspirin [Aspirin EC] 81 mg PO DAILY 12/26/17 cyclobenzaprine 10 mg tablet 5 mg PO TID PRN PRN #30 tab 02/02/19 Glipizide [Glipizide ER] 10 mg PO DAILY 03/02/19 Metoprolol Tartrate [Lopressor 50 mg PO BID 03/02/19 (beta guzman)] Multivitamin with Folic Acid [Cvs 400 mcg PO DAILY 03/02/19 One Daily Essential Tablet] duloxetine 30 mg capsule,delayed 60 mg PO DAILY #90 cap 07/07/19 release benzonatate 100 mg capsule 100 mg PO TID PRN #30 cap 12/07/19 Apixaban [Eliquis] 5 mg PO BID 01/11/20 Aripiprazole 10 mg PO DAILY 01/11/20 Atorvastatin Calcium [Lipitor] 40 mg PO QHS 01/11/20 Cetirizine HCl 10 mg PO DAILY 01/11/20 Empagliflozin [Jardiance] 25 mg PO DAILY 01/11/20 Gabapentin 300 mg PO QHS 01/11/20 Insulin Aspart Prot/Insuln Asp 70 unit SUBCUT DAILY 01/11/20 [Insulin Aspart Prot-Insuln Asp] Losartan Potassium 12.5 mg PO DAILY 01/11/20 Omeprazole 20 mg PO DAILY 01/11/20 Oxycodone [Oxyir] 5 mg PO Q6H PRN PRN 5 Days #20 tab 01/14/20 Senna/Docusate Sodium [Senokot-S] 2 tab PO BID PRN PRN #1 tab 01/14/20 Surgical History: Surgical History (Last Updated 01/11/20 @ 07:[address] Walter Winlker MD) History of coronary artery stent placement (Chronic) Onset Date: 04/06/11 Z95.5 BMS to the LCX w/ Itnegrity 4 x 15 mm 04/06/2011 History of open heart surgery Z98.890 Hx of section Z98.891 History of hysterectomy Z90.710 History of left heart catheterization Onset Date: 04/03/11 Z98.890 Hx of cholecystectomy Z90.49 Surgical History: angioplasty - Cardiac stent., cholecystectomy, coronary bypass surgery, hysterectomy, total hip arthroplasty - Right direct anterior., - - C- section. Psychiatric History: Depression MANAGER INVENTORY MANAGEMENT History: No pertinent MANAGER INVENTORY MANAGEMENT history Lives: Alone Smoking Status: Current some day smoker Tobacco Use: Cigarettes Alcohol: None Drugs: None - *Family History Maternal Family History: Family History (Last Reviewed 01/11/20 @ 02:[address] Morro Hung MD) Mother Ovarian cancer Father Hypertension COPD (chronic obstructive pulmonary disease) Heart disease Sister Multiple sclerosis Cancer Sister Brain tumor Heart disease Brother A-fib History Items: No pertinent history Review of Systems Constitutional: Denies: Chills, Fever, Weight Change HEENT: Denies: Head Aches, Sinus Congestion, Sinus Drainage Cardiovascular: Denies: Chest Pain, Palpitations Respiratory: Denies: Cough, Shortness of breath at rest, Sputum production Gastrointestinal: Denies: Abdominal Pain, Nausea, Vomiting Genitourinary: Denies: Dysuria Musculoskeletal: Denies: Joint Pain, Joint Tenderness Skin: Denies: Rash, Wounds Neurological: Denies: Numbness, Tingling, Focal weakness Psychiatric: Denies: Anxiety, Depression, Homicidal Ideations, Suicidal Ideations Hematologic/ Lymphatic: Denies: Easy Bruising, Easy Bleeding VTE Information - Inpt Only VTE Present on Admission: No VTE Mechan Device Prophylaxis: Knee High GAYATRI Hose VTE Pharm Prophylaxis ordered?: No Reason prophylaxis not ordered:: Treatment Not Indicated Patient Problems: Active and Suspected Problems (Last Updated 01/11/20 @ 07:[address] Walter Winkler MD) Debility (Acute) Closed right hip fracture (Acute) - Physical Exam Vitals/I&O's: Vital Signs Temp Pulse Resp BP Pulse Ox 98.7 F 75 20 H 143/77 H 91 01/14/20 11:04 01/14/20 11:04 01/14/20 11:04 01/14/20 11:04 01/14/20 11:04 Oxygen Delivery Method Room Air Weight: 84.7 kg Body Mass Index (BMI) 28.3 Finger Stick Blood Glucose 132 Intake and Output for Last 24 Hours 01/12/20 01/13/20 01/14/20 23:59 23:59 23:59 Intake Total 120 / 120 Balance 120 / 120 General: Alert, Oriented x3, Cooperative HEENT: Atraumatic, PERRLA, EOMI, Normocephalic Neck: Supple, No JVD, Negative Carotid Bruits Lungs: Clear to auscultation, Normal air movement Cardiovascular: Regular rate, No murmurs Abdomen: Bowel Sounds Present, Soft, Non Tender Extremities: No edema, Capillary Refill Less than 3 Seconds Skin: No rashes, No breakdown, Incision - Right hip clean, dry, intact. Musculoskeletal: No Tenderness to Palpation of Joints or Extremities Neurological: Cranial nerves II-XII grossly intact Psych/Mental Status: Normal Affect, Appropriate Current Medications Apixaban (Eliquis) 5 mg PO BID [facility] Aripiprazole (Abilify) 10 mg PO DAILY [facility] Aspirin (Ecotrin) 81 mg PO DAILY@0800 [facility] Atorvastatin Calcium (Lipitor) 40 mg PO QHS [facility] Benzonatate (Tessalon Perle) 100 mg PO TID PRN PRN PRN Reason: cough Bisacodyl (Dulcolax) 10 mg PO DAILY [facility] Cyclobenzaprine HCl (Cyclobenzaprine Hcl) 5 mg PO TID PRN PRN PRN Reason: muscle spasms Duloxetine HCl (Cymbalta) 60 mg PO DAILY [facility] Empagliflozin (Jardiance) 25 mg PO DAILY [facility] Gabapentin (Neurontin) 300 mg PO QHS [facility] Glipizide (Glucotrol Xl) 10 mg PO DAILY@0800 [facility] Insulin Lispro Protam/Lispro Human (Humalog Mix 75-25 Kwikpen (Bkc)) 70 unit SC DAILYCM [facility] Loratadine (Claritin) 10 mg PO DAILY [facility] Losartan Potassium (Cozaar) 12.5 mg PO DAILY [facility] Metoprolol Tartrate (Lopressor (Beta Guzman)) 50 mg PO BID [facility] Multivitamins ([facility]itamin) [facility] Oxycodone HCl (Oxyir) 5 mg PO Q6H PRN PRN PRN Reason: Pain Score 4-5/10 Pantoprazole Sodium (Protonix) 20 mg PO DAILY [facility] Senna/Docusate Sodium (Senokot-S, Yessica-Colace) 1 tablet PO BID [facility] Senna/Docusate Sodium (Senokot-S, Yessica-Colace) 2 tablet PO BID PRN PRN PRN Reason: Constipation Sodium Chloride () 10 - 40 ml IV UD PRN PRN Reason: SALINE FLUSH Tuberculin PPD (Tubersol, Aplisol, Ppd) 5 tu ID X1 ONE Stop: 01/15/20 10:01 Tuberculin PPD (Tubersol, Aplisol, Ppd) 5 tu ID X1 ONE Stop: 01/22/20 10:01 Assessment/Plan All Active Problems (Last Updated 01/11/20 @ 07:[address] Walter Winkler MD) Debility (Acute) Closed right hip fracture (Acute) Femoral neck fracture (Acute) 64 year old female with below past medical history hospitalized right hip fracture, underwent right direct anterior total hip replacement 01/12/[address] Diogo Griffin, admitted to TCU with debility, here for rehabilitation, strengthening, prior to discharge home alone. * Debility - PT/OT. * Cognition - ST. * Pain - Tylenol 1000MG Q6H PRN pain (1-3), Oxycodone 5MG Q6H PRN pain (4-10), Magnesium citrate 300ML PO x 1 bottle. * Bowel - Miralax 17GM daily, Senna/colace 1 tablet BID, Dulcolax 10MG daily. * Adult immunization - Administer Prevnar 13, Pneumovax 23, Fluzone as appropriate. * DVT prophylaxis - Not necessary, already on Eliquis. * Atrial fibrillation - Metoprolol 50MG BID, Eliquis 5MG BID, consider stopping Aspirin, increases risk of bleeding without further decreasing risk of stroke. * Depression - Duloxetine 60MG daily, Abilify 10MG daily, stable chronic continuous churn buttermaker use, GDR not recommended. * Coronary Artery Disease - Metoprolol 50MG BID, Losartan 12.5MG daily, Eliquis 5MG BID, consider stopping Aspirin, increases risk of bleeding without further decreasing risk of stroke. * Hyperlipidemia - High intensity Atorvastatin 40MG QHS. * Cough - Tessalon Perles 100MG TID PRN. * Muscle spasm - Flexeril 5MG TID PRN. * Diabetes Mellitus II - Glipizide 10MG daily, Jardiance 25MG daily, Insulin 75/25 70 units daily. * Diabetic polyneuropathy - Gabapentin 300MG QHS. * Allergic Rhinitis - Loratadine 10MG daily. * Nutrition - MVI daily. * GERD - Pantoprazole 20MG daily.
--- NOTE | 2020-01-14 14:24 | CASEMGMT ---
Social Work Discussed code status with pt. Pt confirmed full code. MOLST form completed and placed in chart. Melina Peguero MSW TUBE MACHINE OPERATOR HELPER
[2020-01-14 16:41] LABS: Bedside Glucose 214 mg/dL (70-110)
[2020-01-14] MEDS: oxyCODONE 5 MG Tablet PO (16:43)
[2020-01-14] MEDS: Acetaminophen 500 MG Tablet 1000 MG PO (16:43)
[2020-01-14] MEDS: Magnesium Citrate 300 ML PO (18:04)
[2020-01-14] MEDS: APIXABAN 5 MG TABLET PO (18:04)
[2020-01-14] MEDS: Senna/Docusate Sodium 1 Tablet PO (18:04)
[2020-01-14 18:12] VITALS: BP 142/76; PULSE 78
[2020-01-14] MEDS: Metoprolol Tartrate 50 MG Tablet PO (18:12)
[2020-01-14] MEDS: Gabapentin 300 MG Capsule PO (21:06)
[2020-01-14] MEDS: Nystatin Powder 15gm Bottle 1 APPLIC TOPICAL (21:06)
[2020-01-14] MEDS: Atorvastatin Calcium 40 MG Tablet PO (21:06)
[2020-01-14] MEDS: Menthol/Lanolin/Calamine/Znox 113 GM Tube 1 APPLIC TOPICAL (21:07)
[2020-01-14 21:26] LABS: Bedside Glucose 204 mg/dL (70-110)
[2020-01-15] MEDS: oxyCODONE 5 MG Tablet PO ×3 (03:37→18:05)
[2020-01-15 03:38] VITALS: BP 109/59; PULSE 70; RESP 18; TEMP 36.6; O2SAT 93
[2020-01-15 05:58] VITALS: BP 114/63; PULSE 73
[2020-01-15] MEDS: Losartan Potassium 25 MG Tablet 12.5 MG PO (05:58)
[2020-01-15] MEDS: Menthol/Lanolin/Calamine/Znox 113 GM Tube 1 APPLIC TOPICAL ×2 (05:58→21:32)
[2020-01-15] MEDS: APIXABAN 5 MG TABLET PO ×2 (05:58→18:00)
[2020-01-15] MEDS: Bisacodyl 5 MG Tablet 10 MG PO (05:58)
[2020-01-15] MEDS: Empagliflozin 25 MG Tablet PO (05:58)
[2020-01-15] MEDS: DULoxetine Hcl 60 MG Capsule PO (05:58)
[2020-01-15] MEDS: Pantoprazole Sodium 20 MG Tablet PO (05:58)
[2020-01-15] MEDS: Metoprolol Tartrate 50 MG Tablet PO ×2 (05:58→18:00)
[2020-01-15] MEDS: ARIPiprazole 10 MG Tablet PO (05:58)
[2020-01-15] MEDS: Loratadine 10 MG Tablet PO (05:58)
[2020-01-15] MEDS: Nystatin Powder 15gm Bottle 1 APPLIC TOPICAL ×2 (05:59→21:32)
[2020-01-15] MEDS: Senna/Docusate Sodium 1 Tablet PO ×2 (06:04→18:00)
[2020-01-15] MEDS: Polyethylene Glycol 3350 17 GM PACKET PO (06:04)
[2020-01-15 06:46] LABS: Bedside Glucose 168 mg/dL (70-110)
[2020-01-15 07:01] LABS: Absolute Lymphocyte Count 1.46 X10^3/uL (0.83-4.51); Absolute Neutrophil Count 6.8 X10^3/uL (2.0-7.7); Basophil# 0.03 X10^3/uL; Basophil% 0.3 % (0-1); Eosinophil# 0.07 X10^3/uL; Eosinophils% 0.7 % (0-5); Hemoglobin 12.6 g/dL (12.0-15.0); Lymphocyte # 1.46 X10^3/ul (4.0); Lymphocyte % 15.3 % (19-41); Mean Corp Hgb Conc 33.2 g/dL (32-36); Mean Corpuscular Hgb 31.1 pg (27.0-32.0); Mean Corpuscular Volume 93.8 fL (81-99); Mean Platelet Vol. 10.6 fl (6.2-12.0); Monocyte# 1.15 X10^3/uL; NRBC Flagged by Analyzer 0 % (0-5); Neutrophil # 6.77 X10^3/uL (2.7-7.7); Neutrophil % 70.8 % (47-70); Platelet Count 204 K/mm3 (150-450); RBC Distribution Width SD 41.8 fl (35.1-43.9); Red Blood Count 4.05 M/mm3 (4.2-5.4); White Blood Count 9.6 K/mm3 (4.4-11.0)
[2020-01-15 07:26] LABS: Anion Gap 5 (5-15); BUN 22 mg/dL (7-18); BUN/Creat Ratio 27.3 RATIO (10-20); Calcium,Total 8.8 mg/dL (8.5-10.1); Chloride 102 mmol/L (98-107); Creatinine, Serum 0.81 mg/dL (0.55-1.02); EST Glomerular Filtration Rate 76 mL/min (>60); Est Glom Filt Rate - Afr Amer 92 mL/min (>60); Estimated Creatinine Clearance 69.85 ml/min; Glucose 157 mg/dL (74-106); Sodium Level 135 mmol/L (136-145)
[2020-01-15] MEDS: Multivitamins,Therapeutic Tablet 1 TABLET PO (08:11)
[2020-01-15] MEDS: glipiZIDE XL 5 MG Tablet 10 MG PO (08:11)
[2020-01-15] MEDS: Aspirin E.C. 81 MG Tablet PO (08:11)
[2020-01-15] MEDS: Insulin Human 75/25 Kwickpen 70 UNIT SC (10:58)
[2020-01-15 11:26] LABS: Bedside Glucose 193 mg/dL (70-110)
[2020-01-15] MEDS: Tuberculin,Purif.prot.deriv. 50 TU/ML Vial 5 ML ID (11:47)
[2020-01-15] MEDS: Acetaminophen 500 MG Tablet 1000 MG PO ×2 (11:51→18:05)
[2020-01-15 16:00] VITALS: BP 128/60; PULSE 72; RESP 16; TEMP 36.7; O2SAT 90
[2020-01-15 18:00] VITALS: BP 130/82; PULSE 72
[2020-01-15] MEDS: Atorvastatin Calcium 40 MG Tablet PO (21:34)
[2020-01-15] MEDS: Gabapentin 300 MG Capsule PO (21:34)
[2020-01-15 21:45] LABS: Bedside Glucose 213 mg/dL (70-110)
--- NOTE | 2020-01-15 21:54 | NURSING ---
Pt unable to voice when had last bm , states I think it was Friday good bowel sounds, states appetite is good, passing flatus, Dr Castellon notified and ordered SSE, SSE given with mod amt semi hard stool passed, had difficulty retaining enema
--- NOTE | 2020-01-15 23:23 | NURSING ---
Per [place] in lab covid test has to be sent out and is pending.
[2020-01-16] MEDS: oxyCODONE 5 MG Tablet PO ×2 (04:14→15:35)
[2020-01-16 05:08] VITALS: BP 125/66; PULSE 82; RESP 15; TEMP 36.7; O2SAT 99
[2020-01-16] MEDS: Bisacodyl 5 MG Tablet 10 MG PO (05:09)
[2020-01-16] MEDS: Polyethylene Glycol 3350 17 GM PACKET PO (05:09)
[2020-01-16 05:10] VITALS: BP 125/66; PULSE 82
[2020-01-16] MEDS: Losartan Potassium 25 MG Tablet 12.5 MG PO (05:10)
[2020-01-16] MEDS: DULoxetine Hcl 60 MG Capsule PO (05:10)
[2020-01-16] MEDS: Pantoprazole Sodium 20 MG Tablet PO (05:10)
[2020-01-16] MEDS: Metoprolol Tartrate 50 MG Tablet PO ×2 (05:10→17:34)
[2020-01-16] MEDS: APIXABAN 5 MG TABLET PO ×2 (05:11→17:31)
[2020-01-16] MEDS: Nystatin Powder 15gm Bottle 1 APPLIC TOPICAL ×2 (05:11→21:27)
[2020-01-16] MEDS: Menthol/Lanolin/Calamine/Znox 113 GM Tube 1 APPLIC TOPICAL ×2 (05:11→21:26)
[2020-01-16] MEDS: ARIPiprazole 10 MG Tablet PO (05:11)
[2020-01-16] MEDS: Loratadine 10 MG Tablet PO (05:11)
[2020-01-16] MEDS: Empagliflozin 25 MG Tablet PO (05:11)
[2020-01-16] MEDS: Senna/Docusate Sodium 1 Tablet PO ×2 (05:11→17:32)
[2020-01-16 06:21] LABS: Bedside Glucose 136 mg/dL (70-110)
[2020-01-16] MEDS: Multivitamins,Therapeutic Tablet 1 TABLET PO (09:22)
[2020-01-16] MEDS: Aspirin E.C. 81 MG Tablet PO (09:22)
[2020-01-16] MEDS: glipiZIDE XL 5 MG Tablet 10 MG PO (09:23)
[2020-01-16] MEDS: Insulin Human 75/25 Kwickpen 70 UNIT SC (09:23)
[2020-01-16 11:41] LABS: Bedside Glucose 186 mg/dL (70-110)
--- NOTE | 2020-01-16 15:30 | NURSING ---
Patient has Nicoderm patch on L Deltoid. Patient wanted only one patch administered at this time.
[2020-01-16] MEDS: Acetaminophen 500 MG Tablet 1000 MG PO (15:34)
[2020-01-16 17:16] LABS: Bedside Glucose 98 mg/dL (70-110)
[2020-01-16] MEDS: LORazepam 0.5 MG Tablet PO (17:29)
[2020-01-16 17:34] VITALS: BP 130/76; PULSE 74
[2020-01-16 18:26] VITALS: BP 130/76; PULSE 74; RESP 20; TEMP 36.8; O2SAT 94
--- NOTE | 2020-01-16 18:28 | NURSING ---
Patient feeling a little better since Nicoderm 21 mg patch removed. Ativan effective. Patient will let nurse know when she wants the 14mg patch put on.
[2020-01-16 18:36] VITALS: BP 116/47; PULSE 69; RESP 16; TEMP 36.6; O2SAT 95
--- NOTE | 2020-01-16 20:05 | RAD_ITS ---
STUDY: X-RAY CHEST REASON FOR EXAM: Female, 64 years old. RECENT FEMUR SURGERY, INCREASED CONFUSION TECHNIQUE: Frontal and lateral views of the chest. COMPARISON: 01/11/2020 FINDINGS: Sternotomy wires noted. The lungs are clear and expanded. There is no demonstrated pleural abnormality. Normal size heart. Normal mediastinum and ventura. Normal visualized pulmonary arteries. Normal visualized aortic arch and descending thoracic aorta. Normal visualized thoracic spine. Normal visualized ribs, clavicles, and shoulders. There is no demonstrated abnormality of the visualized soft tissue structures of the upper abdomen. RAD/Chest PA and Lateral IMPRESSION: No acute disease Electronically Signed: Maxim Rubin MD at 20:51 EDT , Service support ,
--- NOTE | 2020-01-16 20:05 | RAD_ITS ---
STUDY: X-RAY - ABDOMEN/PELVIS REASON FOR EXAM: Female, 64 years old. RECENT FEMUR SURGERY, INCREASED CONFUSION TECHNIQUE: Single AP view of the abdomen / pelvis. COMPARISON: None. FINDINGS: Normal visualized lung bases. There is an unremarkable bowel gas pattern. Right total hip arthroplasty. Subcutaneous gas right hip. Bilateral tubal ligation clips in the pelvis. The visualized liver, spleen and kidneys are grossly normal in size and morphology. Normal soft tissue structures. Normal visualized osseous structures. RAD/Abdomen Single View IMPRESSION: Normal x-ray examination of the abdomen and pelvis. Electronically Signed: Maxim Rubin MD at 20:52 EDT , Service support ,
--- NOTE | 2020-01-16 20:06 | NURSING ---
Pt daughter called to unit stating that nobody was answering her moms call light and she needed help. This nurse explained to daughter that the pts call light was not on and that this nurse would go assist pt. Pt daughter experessing that pt has had increase confusion since coming to the unit. Daughter exlained that pt has been a heavy smoker since she was 11 years old. Daughter stated pt has had several mini strokes but has never been this confused. This nurse explained that Dr. Castellon could be updated with concerns. Daughter requesting pt be moved closer to nurses station so she could be checked on more frequently. Daughter thanked this nurse several times. This nurse into check on pt. Pt A&Ox2. She thought she was at home and her dogs had ran away. Pt was trying to hit buttons on TV remove to call for help. Pt denied burning with urination, N/V. Dr. Castellon updated new order for UA, CXR and KUB.
[2020-01-16] MEDS: Atorvastatin Calcium 40 MG Tablet PO (21:26)
[2020-01-16] MEDS: Gabapentin 300 MG Capsule PO (21:27)
[2020-01-16 21:36] LABS: Mucous, Urine 0 SEEN /hpf (<or=2+); Red Blood Cells-Urine 0 SEEN /hpf (0-5)
[2020-01-16 21:45] LABS: Color, Urine Yellow (Yellow); Glucose, Dipstick 1000 mg/dl (Normal); Ketone-Dipstick Negative (Negative); Leukocyte Esterase-Dipstick 500 /ul (Negative); Nitrite-Dipstick Positive (Negative); Occult Blood-Urine 25 /ul (Negative); Protein-Dipstick 30 mg/dl (Negative); Urine Bilirubin Dipstick Negative (Negative); Urine Clarity Sl. Cloudy (Clear); Urine Urobilinogen Normal (Normal)
[2020-01-16 21:53] LABS: White Blood Cells 10-25 SEEN /hpf (0-5)
[2020-01-16 21:54] LABS: Bacteria 1+ /hpf (None Seen); Squamous Epithelial Cells - UA 0-5 SEEN /hpf (5-10)
[2020-01-16 21:55] LABS: Bedside Glucose 229 mg/dL (70-110)
[2020-01-16 21:56] LABS: Yeast-Urine 2+ /hpf (None Seen)
[2020-01-16] MEDS: Ciprofloxacin 500 MG Tablet PO (22:38)
--- NOTE | 2020-01-16 22:51 | NURSING ---
Pt room moved closer to nurse station, pt denies pain or burning with urination, Straight cath for urine spec, results called to dr geronimo with new orders obtained, tc to daughter and given update with new orders and room change,
[2020-01-17 04:00] VITALS: BP 135/91; PULSE 78; RESP 16; TEMP 36.8; O2SAT 99
[2020-01-17] MEDS: Polyethylene Glycol 3350 17 GM PACKET PO (05:24)
[2020-01-17] MEDS: DULoxetine Hcl 60 MG Capsule PO (05:25)
[2020-01-17] MEDS: Bisacodyl 5 MG Tablet 10 MG PO (05:25)
[2020-01-17] MEDS: Pantoprazole Sodium 20 MG Tablet PO (05:25)
[2020-01-17] MEDS: Losartan Potassium 25 MG Tablet 12.5 MG PO (05:25)
[2020-01-17 05:26] VITALS: BP 135/91; PULSE 78
[2020-01-17] MEDS: Senna/Docusate Sodium 1 Tablet PO ×2 (05:26→17:49)
[2020-01-17] MEDS: ARIPiprazole 10 MG Tablet PO (05:26)
[2020-01-17] MEDS: Metoprolol Tartrate 50 MG Tablet PO ×2 (05:26→17:48)
[2020-01-17] MEDS: Empagliflozin 25 MG Tablet PO (05:26)
[2020-01-17] MEDS: Loratadine 10 MG Tablet PO (05:26)
[2020-01-17] MEDS: APIXABAN 5 MG TABLET PO ×2 (05:26→17:49)
[2020-01-17] MEDS: Menthol/Lanolin/Calamine/Znox 113 GM Tube 1 APPLIC TOPICAL ×2 (05:31→20:55)
[2020-01-17] MEDS: Ciprofloxacin 500 MG Tablet PO ×2 (05:32→17:49)
[2020-01-17] MEDS: Nystatin Powder 15gm Bottle 1 APPLIC TOPICAL ×2 (05:32→20:55)
[2020-01-17 06:26] LABS: Bedside Glucose 153 mg/dL (70-110)
[2020-01-17] MEDS: Multivitamins,Therapeutic Tablet 1 TABLET PO (08:28)
[2020-01-17] MEDS: Aspirin E.C. 81 MG Tablet PO (08:28)
[2020-01-17] MEDS: glipiZIDE XL 5 MG Tablet 10 MG PO (08:28)
[2020-01-17] MEDS: Insulin Human 75/25 Kwickpen 70 UNIT SC (08:28)
[2020-01-17 10:55] LABS: Bedside Glucose 207 mg/dL (70-110)
--- NOTE | 2020-01-17 11:10 | NURSING ---
Patient refused thigh high's but agreed to wear knee high lizett hose.
[2020-01-17 12:31] VITALS: PULSE 80; RESP 16; O2SAT 92
[2020-01-17 13:22] VITALS: BP 119/63; PULSE 77; RESP 14; TEMP 36.8; O2SAT 94
[2020-01-17] MEDS: oxyCODONE 5 MG Tablet PO ×2 (13:48→20:54)
--- NOTE | 2020-01-17 15:04 | PHA.CONS_ITS ---
<AnelLisa M - Last Filed: 01/17/20 15:04> Progress Note - Pharmacy Subjective: TCU ADMISSION Objective: Allergies No Known Allergies Allergy (Verified 01/14/20 11:46) Current Medications Generic Name Dose Route Start Last Admin Trade Name Freq PRN Reason Stop Dose Admin Acetaminophen 1,000 mg 01/14/20 14:57 01/16/20 15:34 Tylenol PO 1,000 mg Q6H PRN PRN Administration Pain Score 1-3/10 Apixaban 5 mg 01/14/20 18:00 01/17/20 05:26 Eliquis PO 5 mg BID LATHA Administration Aripiprazole 10 mg 01/15/20 06:00 01/17/20 05:26 Abilify PO 10 mg DAILY LATHA Administration Aspirin 81 mg 01/15/20 08:00 01/17/20 08:28 Ecotrin PO 81 mg DAILY@0800 LATHA Administration Atorvastatin Calcium 40 mg 01/14/20 22:00 01/16/20 21:26 Lipitor PO 40 mg QHS LATHA Administration Benzonatate 100 mg 01/14/20 12:52 Tessalon Perle PO TID PRN PRN cough Bisacodyl 10 mg 01/15/20 06:00 01/17/20 05:25 Dulcolax PO 10 mg DAILY LATHA Administration Calamine/Phenol 1 applic 01/14/20 22:00 01/17/20 05:31 Calmoseptine Ointment TOPICAL 1 applicatio 0600,2200 LATHA Administration Protocol Ciprofloxacin HCl 500 mg 01/17/20 06:00 01/17/20 05:32 Cipro PO 01/24/20 06:01 500 mg BID LATHA Administration Cyclobenzaprine HCl 5 mg 01/14/20 12:52 Cyclobenzaprine Hcl PO TID PRN PRN muscle spasms Dextrose 0 gm 01/14/20 22:09 D50w Syringe IV X1 PRN Hypoglycemia Protocol Duloxetine HCl 60 mg 01/15/20 06:00 01/17/20 05:25 Cymbalta PO 60 mg DAILY LATHA Administration Empagliflozin 25 mg 01/15/20 06:00 01/17/20 05:26 Jardiance PO 25 mg DAILY LATHA Administration Gabapentin 300 mg 01/14/20 22:00 01/16/20 21:27 Neurontin PO 300 mg QHS LATHA Administration Glipizide 10 mg 01/15/20 08:00 01/17/20 08:28 Glucotrol Xl PO 10 mg DAILY@0800 LATHA Administration Glucagon 1 mg 01/14/20 22:09 IM .X1 PRN Hypoglycemia Insulin Lispro Protam/Lispro Human 70 unit 01/15/20 08:00 01/17/20 08:28 Humalog Mix 75-25 Kwikpen (Bkc) SC 70 u DAILYCM LATHA Administration Loratadine 10 mg 01/15/20 06:00 01/17/20 05:26 Claritin PO 10 mg DAILY LATHA Administration Losartan Potassium 12.5 mg 01/15/20 06:00 01/17/20 05:25 Cozaar PO 12.5 mg DAILY LATHA Administration Metoprolol Tartrate 50 mg 01/14/20 18:00 01/17/20 05:26 Lopressor (Beta Guzman) PO 50 mg BID LATHA Administration Multivitamins 1 tablet 01/15/20 08:00 01/17/20 08:28 Multivitamin PO 1 tablet DAILY LATHA Administration Nicotine 14 mg 01/16/20 16:52 01/17/20 05:26 Nicoderm Cq ([facility]) TRANSDERM. 14 mg DAILY LATHA Administration Nystatin 1 applic 01/14/20 22:00 01/17/20 05:32 Mycostatin Powder TOPICAL 1 applicatio 0600,2200 LATHA Administration Protocol Oxycodone HCl 5 mg 01/14/20 12:52 01/17/20 13:48 Oxyir PO 5 mg Q6H PRN PRN Administration Pain Score 4-10/10 Pantoprazole Sodium 20 mg 01/15/20 06:00 01/17/20 05:25 Protonix PO 20 mg DAILY LATHA Administration Polyethylene Glycol 17 gm 01/15/20 06:00 01/17/20 05:24 Miralax PO 17 gm DAILY LATHA Administration Senna/Docusate Sodium 1 tablet 01/14/20 18:00 01/17/20 05:26 Senokot-S, Yessica-Colace PO 1 tablet BID LATHA Administration Sodium Chloride 10 - 40 ml 01/14/20 11:07 IV UD PRN SALINE FLUSH Tuberculin PPD 5 tu 01/22/20 10:00 Tubersol, Aplisol, Ppd ID 01/22/20 10:01 X1 ONE Problem List (Last Updated 01/11/20 @ 07:[address] Walter Winkler MD) Debility (Acute) Closed right hip fracture (Acute) Diabetes mellitus (Chronic) Hypertension (Chronic) Coronary artery disease (Chronic) Atrial fibrillation (Chronic) Muscle spasm (Chronic) Major depression (Chronic) Cough (Chronic) Allergic rhinitis (Chronic) Diabetic polyneuropathy (Chronic) GERD (gastroesophageal reflux disease) (Chronic) Tobacco abuse (Chronic) Vital Signs Temp Pulse Resp BP Pulse Ox 98.3 F 77 14 119/63 94 01/17/20 13:22 01/17/20 13:22 01/17/20 13:22 01/17/20 13:22 01/17/20 13:22 Oxygen Flow Rate (L/min) 3 Oxygen Delivery Method Room Air Weight: 84.7 kg Body Mass Index (BMI) 28.3 Finger Stick Blood Glucose 132 Sodium 135 mmol/L (136-145) L 01/15/20 06:37 Potassium 4.0 mmol/L (3.5-5.1) 01/15/20 06:37 Chloride 102 mmol/L (98-107) 01/15/20 06:37 Carbon Dioxide 28.0 mmol/L (21.0-32.0) 01/15/20 06:37 Anion Gap 5 (5-15) 01/15/20 06:37 BUN 22 mg/dL (7-18) H 01/15/20 06:37 Creatinine 0.81 mg/dL (0.55-1.02) 01/15/20 06:37 Est GFR (MDRD) Af Amer 92 mL/min (>60) 01/15/20 06:37 Est GFR (MDRD) Non-Af 76 mL/min (>60) 01/15/20 06:37 BUN/Creatinine Ratio 27.3 RATIO (10-20) H 01/15/20 06:37 Glucose 157 mg/dL (74-106) H 01/15/20 06:37 Assessment/Plan: 1. Pain: Tylenol 1000mg PO Q6h PRN pain 1-3/10, Oxycodone 5mg PO Q6h PRN pain 4- 10/10. Please continue to monitor for S/S increased/decreased pain, PRn medication use. 2. Atrial Fibrillation/CAD: Eliquis 5mg PO BID, Aspirin 81mg PO daily, Lipitor 40mg PO QHS, Losartan 12.5mg PO Daily, Lopressor 50mg PO BID. Please continue to monitor for S/S bleeding/bruising, SCr, electrolytes, BP, and pulse. Can consider stopping aspirin if clinically indicated, as pt already therapeutically anticoagulated for stroke prevention. *3. Type 2 Diabetes: Jardiance 25mg PO daily, Glipizide XL 10mg PO Daily, Humalog Mix 75/25 70 units SC Daily. Please continue to monitor for S/S hyper/hypoglycemia (last POC BG = 207). If sugars continue to be elevated, can consider increasing insulin to BID dosing, Thank you. 4. Diabetic neuropathy: Gabapentin 300mg PO QHS. Please continue to monitor for improvement in symptoms, renal function. 5. Muscle Spasm: Flexeril 5mg PO TID PRN. Please continue to monitor for medication effectiveness, PRN medication usage. 6. Allergies/Cough: Claritin 10mg PO Daily, Benzonatate 100mg PO TID PRN. Please continue to monitor for improvement in allergic symptoms, resolution of coughing, PRN medication usage. 7. GERD: Protonix 20mg PO daily. Please continue to monitor for improvement in GERD symptoms. 8. UTI: Cipro 500mg PO BID thru 01/24/20. Pt preliminary Cx growing E.Coli, no sensitivity available yet. When sensitivity becomes available, please consider de-escalation of antibiotics as clinically indicated by culture results. 9. General Wellness: Multivitamin 1 tab PO Daily. Please continue to monitor. 10. Nicotine Abuse: Nicoderm patch 14mg transdermal Daily. Please continue to monitor for nicotine withdrawal, medication effectiveness. Psychotropic Medications: 11. Abilify 10mg PO Daily, Cymbalta 60mg PO Daily. Please consider a GDR by 07/2020 if clinically indicated, thank you. Unnecessary Medications: None Bowel Regimen: Miralax 17g PO Daily, Senna/Docusate 1 tab PO BID, Dulcolax 10mg PO Daily. Please continue to monitor for increased/decreased bowel movements/diarrhea. Date of Note:: 01/17/20 - Provider Comments Provider responsibility: Provider responsible to enter orders to implement recommendations <Efraín Castellon Chi - Last Filed: 01/17/20 17:01> Progress Note - Pharmacy Subjective: [] Objective: Allergies No Known Allergies Allergy (Verified 01/14/20 11:46) Current Medications Generic Name Dose Route Start Last Admin Trade Name Freq PRN Reason Stop Dose Admin Acetaminophen 1,000 mg 01/14/20 14:57 01/16/20 15:34 Tylenol PO 1,000 mg Q6H PRN PRN Administration Pain Score 1-3/10 Apixaban 5 mg 01/14/20 18:00 01/17/20 05:26 Eliquis PO 5 mg BID LATHA Administration Aripiprazole 10 mg 01/15/20 06:00 01/17/20 05:26 Abilify PO 10 mg DAILY LATHA Administration Aspirin 81 mg 01/15/20 08:00 01/17/20 08:28 Ecotrin PO 81 mg DAILY@0800 LATHA Administration Atorvastatin Calcium 40 mg 01/14/20 22:00 01/16/20 21:26 Lipitor PO 40 mg QHS LATHA Administration Benzonatate 100 mg 01/14/20 12:52 Tessalon Perle PO TID PRN PRN cough Bisacodyl 10 mg 01/15/20 06:00 01/17/20 05:25 Dulcolax PO 10 mg DAILY LATHA Administration Calamine/Phenol 1 applic 01/14/20 22:00 01/17/20 05:31 Calmoseptine Ointment TOPICAL 1 applicatio 0600,2200 LATHA Administration Protocol Ciprofloxacin HCl 500 mg 01/17/20 06:00 01/17/20 05:32 Cipro PO 01/24/20 06:01 500 mg BID LATHA Administration Cyclobenzaprine HCl 5 mg 01/14/20 12:52 Cyclobenzaprine Hcl PO TID PRN PRN muscle spasms Dextrose 0 gm 01/14/20 22:09 D50w Syringe IV X1 PRN Hypoglycemia Protocol Duloxetine HCl 60 mg 01/15/20 06:00 01/17/20 05:25 Cymbalta PO 60 mg DAILY LATHA Administration Empagliflozin 25 mg 01/15/20 06:00 01/17/20 05:26 Jardiance PO 25 mg DAILY LATHA Administration Gabapentin 300 mg 01/14/20 22:00 01/16/20 21:27 Neurontin PO 300 mg QHS LATHA Administration Glipizide 10 mg 01/15/20 08:00 01/17/20 08:28 Glucotrol Xl PO 10 mg DAILY@0800 LATHA Administration Glucagon 1 mg 01/14/20 22:09 IM .X1 PRN Hypoglycemia Insulin Lispro Protam/Lispro Human 70 unit 01/15/20 08:00 01/17/20 08:28 Humalog Mix 75-25 Kwikpen (Bkc) SC 70 u DAILYCM LATHA Administration Loratadine 10 mg 01/15/20 06:00 01/17/20 05:26 Claritin PO 10 mg DAILY LATHA Administration Losartan Potassium 12.5 mg 01/15/20 06:00 01/17/20 05:25 Cozaar PO 12.5 mg DAILY LATHA Administration Metoprolol Tartrate 50 mg 01/14/20 18:00 01/17/20 05:26 Lopressor (Beta Guzman) PO 50 mg BID LATHA Administration Multivitamins 1 tablet 01/15/20 08:00 01/17/20 08:28 Multivitamin PO 1 tablet DAILYCM LATHA Administration Nicotine 14 mg 01/16/20 16:52 01/17/20 05:26 Nicoderm Cq (Pb[facility]) TRANSDERM. 14 mg DAILY LATHA Administration Nystatin 1 applic 01/14/20 22:00 01/17/20 05:32 Mycostatin Powder TOPICAL 1 applicatio 0600,2200 LATHA Administration Protocol Oxycodone HCl 5 mg 01/14/20 12:52 01/17/20 13:48 Oxyir PO 5 mg Q6H PRN PRN Administration Pain Score 4-10/10 Pantoprazole Sodium 20 mg 01/15/20 06:00 01/17/20 05:25 Protonix PO 20 mg DAILY LATHA Administration Polyethylene Glycol 17 gm 01/15/20 06:00 01/17/20 05:24 Miralax PO 17 gm DAILY LATHA Administration Senna/Docusate Sodium 1 tablet 01/14/20 18:00 01/17/20 05:26 Senokot-S, Yessica-Colace PO 1 tablet BID LATHA Administration Sodium Chloride 10 - 40 ml 01/14/20 11:07 IV UD PRN SALINE FLUSH Tuberculin PPD 5 tu 01/22/20 10:00 Tubersol, Aplisol, Ppd ID 01/22/20 10:01 X1 ONE Problem List (Last Updated 01/11/20 @ 07:[address] Walter Winkler MD) Debility (Acute) Closed right hip fracture (Acute) Diabetes mellitus (Chronic) Hypertension (Chronic) Coronary artery disease (Chronic) Atrial fibrillation (Chronic) Muscle spasm (Chronic) Major depression (Chronic) Cough (Chronic) Allergic rhinitis (Chronic) Diabetic polyneuropathy (Chronic) GERD (gastroesophageal reflux disease) (Chronic) Tobacco abuse (Chronic) Vital Signs Temp Pulse Resp BP Pulse Ox 98.3 F 77 14 119/63 94 01/17/20 13:22 01/17/20 13:22 01/17/20 13:22 01/17/20 13:22 01/17/20 13:22 Oxygen Flow Rate (L/min) 3 Oxygen Delivery Method Room Air Weight: 84.7 kg Body Mass Index (BMI) 28.3 Finger Stick Blood Glucose 132 Sodium 135 mmol/L (136-145) L 01/15/20 06:37 Potassium 4.0 mmol/L (3.5-5.1) 01/15/20 06:37 Chloride 102 mmol/L (98-107) 01/15/20 06:37 Carbon Dioxide 28.0 mmol/L (21.0-32.0) 01/15/20 06:37 Anion Gap 5 (5-15) 01/15/20 06:37 BUN 22 mg/dL (7-18) H 01/15/20 06:37 Creatinine 0.81 mg/dL (0.55-1.02) 01/15/20 06:37 Est GFR (MDRD) Af Amer 92 mL/min (>60) 01/15/20 06:37 Est GFR (MDRD) Non-Af 76 mL/min (>60) 01/15/20 06:37 BUN/Creatinine Ratio 27.3 RATIO (10-20) H 01/15/20 06:37 Glucose 157 mg/dL (74-106) H 01/15/20 06:37 Assessment/Plan: Psychotropic Medications: Unnecessary Medications: Bowel Regimen: - Provider Comments Provider responsibility: Provider responsible to enter orders to implement recommendations Provider Comments to Recommendations by Pharmacy: Agree
--- NOTE | 2020-01-17 16:25 | NURSING ---
Mepilex removed from right hip, pt tolerated well. steri-strips intact, no current drainage. no s/s of infection present.
[2020-01-17 16:35] LABS: Bedside Glucose 180 mg/dL (70-110)
[2020-01-17 17:48] VITALS: BP 119/63; PULSE 77
[2020-01-17] MEDS: Gabapentin 300 MG Capsule PO (20:50)
--- NOTE | 2020-01-17 20:50 | NURSING ---
Pt given ice cream and jello per request.
[2020-01-17] MEDS: Atorvastatin Calcium 40 MG Tablet PO (20:51)
[2020-01-17 21:31] LABS: Bedside Glucose 194 mg/dL (70-110)
[2020-01-18 04:31] VITALS: BP 128/69; PULSE 69; RESP 18; TEMP 36; O2SAT 98
[2020-01-18] MEDS: oxyCODONE 5 MG Tablet PO ×2 (04:33→12:29)
[2020-01-18] MEDS: Polyethylene Glycol 3350 17 GM PACKET PO (04:34)
[2020-01-18] MEDS: Senna/Docusate Sodium 1 Tablet PO ×2 (04:34→16:31)
[2020-01-18 04:35] VITALS: BP 128/69; PULSE 69
[2020-01-18] MEDS: Bisacodyl 5 MG Tablet 10 MG PO (04:35)
[2020-01-18] MEDS: Losartan Potassium 25 MG Tablet 12.5 MG PO (04:35)
[2020-01-18] MEDS: Pantoprazole Sodium 20 MG Tablet PO (04:35)
[2020-01-18] MEDS: DULoxetine Hcl 60 MG Capsule PO (04:35)
[2020-01-18] MEDS: Metoprolol Tartrate 50 MG Tablet PO ×2 (04:35→16:31)
[2020-01-18] MEDS: ARIPiprazole 10 MG Tablet PO (04:36)
[2020-01-18] MEDS: Ciprofloxacin 500 MG Tablet PO ×2 (04:36→16:31)
[2020-01-18] MEDS: Loratadine 10 MG Tablet PO (04:36)
[2020-01-18] MEDS: APIXABAN 5 MG TABLET PO ×2 (04:37→16:31)
[2020-01-18] MEDS: Empagliflozin 25 MG Tablet PO (04:37)
[2020-01-18] MEDS: Menthol/Lanolin/Calamine/Znox 113 GM Tube 1 APPLIC TOPICAL ×2 (04:40→20:38)
[2020-01-18] MEDS: Nystatin Powder 15gm Bottle 1 APPLIC TOPICAL ×2 (04:40→20:38)
[2020-01-18 06:31] LABS: Bedside Glucose 195 mg/dL (70-110)
[2020-01-18] MEDS: Insulin Human 75/25 Kwickpen 70 UNIT SC (08:31)
[2020-01-18] MEDS: glipiZIDE XL 5 MG Tablet 10 MG PO (08:31)
[2020-01-18] MEDS: Aspirin E.C. 81 MG Tablet PO (08:31)
[2020-01-18] MEDS: Multivitamins,Therapeutic Tablet 1 TABLET PO (08:31)
[2020-01-18 11:26] LABS: Bedside Glucose 171 mg/dL (70-110)
[2020-01-18 14:49] VITALS: BP 103/63; PULSE 75; RESP 22; TEMP 36.4; O2SAT 96
[2020-01-18 16:30] LABS: Bedside Glucose 103 mg/dL (70-110)
[2020-01-18 16:31] VITALS: PULSE 75
[2020-01-18] MEDS: Magnesium Citrate 300 ML PO (18:15)
[2020-01-18] MEDS: Atorvastatin Calcium 40 MG Tablet PO (20:36)
[2020-01-18] MEDS: Gabapentin 300 MG Capsule PO (20:36)
[2020-01-18 21:36] LABS: Bedside Glucose 248 mg/dL (70-110)
[2020-01-18] MEDS: MELATONIN 10 MG TABLET PO (22:34)
[2020-01-19] MEDS: oxyCODONE 5 MG Tablet PO ×4 (00:33→23:38)
[2020-01-19 06:15] LABS: Bedside Glucose 180 mg/dL (70-110)
[2020-01-19 06:17] VITALS: O2SAT 96
[2020-01-19 06:18] VITALS: BP 109/64; PULSE 71; RESP 18; TEMP 36.6; O2SAT 96
[2020-01-19] MEDS: Polyethylene Glycol 3350 17 GM PACKET PO (06:23)
[2020-01-19 06:24] VITALS: PULSE 71
[2020-01-19] MEDS: Bisacodyl 5 MG Tablet 10 MG PO (06:24)
[2020-01-19] MEDS: Ciprofloxacin 500 MG Tablet PO ×2 (06:24→17:01)
[2020-01-19] MEDS: Loratadine 10 MG Tablet PO (06:24)
[2020-01-19] MEDS: Metoprolol Tartrate 50 MG Tablet PO ×2 (06:24→17:00)
[2020-01-19] MEDS: ARIPiprazole 10 MG Tablet PO (06:24)
[2020-01-19] MEDS: Senna/Docusate Sodium 1 Tablet PO ×2 (06:24→17:00)
[2020-01-19] MEDS: APIXABAN 5 MG TABLET PO ×2 (06:24→17:00)
[2020-01-19] MEDS: Losartan Potassium 25 MG Tablet 12.5 MG PO (06:24)
[2020-01-19] MEDS: Pantoprazole Sodium 20 MG Tablet PO (06:25)
[2020-01-19] MEDS: Empagliflozin 25 MG Tablet PO (06:25)
[2020-01-19] MEDS: Menthol/Lanolin/Calamine/Znox 113 GM Tube 1 APPLIC TOPICAL ×2 (06:25→21:10)
[2020-01-19] MEDS: DULoxetine Hcl 60 MG Capsule PO (06:25)
[2020-01-19] MEDS: Nystatin Powder 15gm Bottle 1 APPLIC TOPICAL ×2 (06:26→21:10)
[2020-01-19] MEDS: Acetaminophen 500 MG Tablet 1000 MG PO ×3 (06:28→21:08)
[2020-01-19] MEDS: glipiZIDE XL 5 MG Tablet 10 MG PO (08:18)
[2020-01-19] MEDS: Aspirin E.C. 81 MG Tablet PO (08:18)
[2020-01-19] MEDS: Multivitamins,Therapeutic Tablet 1 TABLET PO (08:19)
[2020-01-19] MEDS: Insulin Human 75/25 Kwickpen 70 UNIT SC (08:19)
--- NOTE | 2020-01-19 09:13 | CASEMGMT ---
Social Work IDT met with patient for care plan meeting. Discussed patient's progress in therapy. Pt is mod A for bed mobility and transfers, ambulating 3ft with FWW at CGA. Her pain is limiting and needs cues for motivation. Pt is supervision for grooming, max for bathing, min for UE dressing, max for LE dressing, total assist for toileting. ST is working on memory and problem solving for safety. Pt requires use of memory book to recall, total assistance for meds and finances. Pt states son lives in basement of her house, but does work during the day. Pt is on a cardiac, 1600 calorie diet, 50-100%. Pt is out of isolation 01/27, wound is healing, and taking ATB for UTI. Explained Medicare benefit, but does not have secondary insurance. Inquired if pt could pay copays privately - pt could not. Pt provided permission for SW to contact dtr to discuss alternative options. Will continue to follow. Melina Peguero, CHRISTIAN LAURENW
[2020-01-19] MEDS: Bisacodyl 10 MG Suppository RECTAL (09:41)
[2020-01-19 11:21] LABS: Bedside Glucose 283 mg/dL (70-110)
--- NOTE | 2020-01-19 11:22 | CASEMGMT ---
BIMS and PHQ9 interviews completed on this date for MDS assessment. CRESENCIO Reece
--- NOTE | 2020-01-19 14:49 | NURSING ---
suppository given this morning and has been ineffective, warm prune juice with butter given at this time.
[2020-01-19 16:00] VITALS: BP 134/64; PULSE 66; RESP 16; TEMP 36.7; O2SAT 97
--- NOTE | 2020-01-19 16:23 | CASEMGMT ---
Social Work Spoke with pt's daughter whom was unavailable for the care plan meeting. Provided all information from meeting. Answered all of dtr's questions. Discussed pt's baseline and current cognitive state. Dtr reported pt having another stroke in 2019 and having word finding issues since then. However, the dtr and others who've spoken to pt since the fall, have noticed a change in her orientation, memory and speech. Dtr reports to having conversation with pt and she then talks about something off the wall, she seems groggy, slurred speech at times, and overall trouble concentrating with conversations. Dtr inquired about why pt is having these issues, if she had another stroke. She did report pt has always had a non-challant attitude when it came to her health, poor motivation. Reason being having a rough history - her son was murdered at the same time her left her. Provided support and empathy. Dtr is very close with pt. Pt always chose smoking over her health, per her dtr. Dtr reports to pt being able to handle her own day-to-day finances, but that her ERICA did complete monthly pill organizer for her because she couldn't remember what and when to take her pills. Reported information to ST and Physician. Discussed Medicare benefit and pt not having secondary insurance. Dtr thinks she has MMO. Per pt permission, copied MMO card and notified registration. MMO and AARP was listed but are both inactive. Contacted dtr and provided MMO info to call and see how to restart for secondary. Discussed Medicaid and per pt's income, she could potentially qualify. Explained [facility] can assist for copays, but if she needs it currently, she would need to transfer to another SNF. [facility] could assist in the community and at LTC if pt is not safe to return home. Dtr agreeable to complete application. Emailed [facility] [employer] application. Dtr appreciative of assistance. Will continue to follow. CHRISTIAN JasmineW
[2020-01-19 17:00] VITALS: PULSE 66
[2020-01-19 17:20] LABS: Bedside Glucose 147 mg/dL (70-110)
[2020-01-19 21:06] LABS: Bedside Glucose 263 mg/dL (70-110)
[2020-01-19] MEDS: Gabapentin 300 MG Capsule PO (21:08)
[2020-01-19] MEDS: Doxepin Hcl 25 MG Capsule PO (21:08)
[2020-01-19] MEDS: Atorvastatin Calcium 40 MG Tablet PO (21:09)
[2020-01-20 05:42] VITALS: BP 130/66; PULSE 94; RESP 18; TEMP 36.2; O2SAT 98
[2020-01-20] MEDS: Polyethylene Glycol 3350 17 GM PACKET PO (05:42)
[2020-01-20] MEDS: ARIPiprazole 10 MG Tablet PO (05:44)
[2020-01-20] MEDS: Loratadine 10 MG Tablet PO (05:44)
[2020-01-20] MEDS: Losartan Potassium 25 MG Tablet 12.5 MG PO (05:44)
[2020-01-20] MEDS: Ciprofloxacin 500 MG Tablet PO ×2 (05:44→17:36)
[2020-01-20 05:46] VITALS: BP 130/66; PULSE 94
[2020-01-20] MEDS: Senna/Docusate Sodium 1 Tablet PO ×2 (05:46→17:38)
[2020-01-20] MEDS: DULoxetine Hcl 60 MG Capsule PO (05:46)
[2020-01-20] MEDS: Pantoprazole Sodium 20 MG Tablet PO (05:46)
[2020-01-20] MEDS: Metoprolol Tartrate 50 MG Tablet PO ×2 (05:46→17:37)
[2020-01-20] MEDS: Nystatin Powder 15gm Bottle 1 APPLIC TOPICAL ×2 (05:47→20:18)
[2020-01-20] MEDS: APIXABAN 5 MG TABLET PO ×2 (05:47→17:37)
[2020-01-20] MEDS: Empagliflozin 25 MG Tablet PO (05:47)
[2020-01-20] MEDS: Menthol/Lanolin/Calamine/Znox 113 GM Tube 1 APPLIC TOPICAL ×2 (05:48→20:18)
[2020-01-20] MEDS: oxyCODONE 5 MG Tablet PO ×3 (05:54→23:00)
[2020-01-20 06:30] LABS: Bedside Glucose 174 mg/dL (70-110)
[2020-01-20] MEDS: Multivitamins,Therapeutic Tablet 1 TABLET PO (08:04)
[2020-01-20] MEDS: glipiZIDE XL 5 MG Tablet 10 MG PO (08:04)
[2020-01-20] MEDS: Aspirin E.C. 81 MG Tablet PO (08:04)
[2020-01-20] MEDS: Insulin Human 75/25 Kwickpen 70 UNIT SC (08:05)
[2020-01-20] MEDS: Acetaminophen 500 MG Tablet 1000 MG PO ×3 (08:10→23:00)
[2020-01-20 11:01] LABS: Bedside Glucose 199 mg/dL (70-110)
[2020-01-20 13:58] VITALS: BP 118/63; PULSE 73; RESP 16; TEMP 36.4; O2SAT 98
--- NOTE | 2020-01-20 14:59 | CASEMGMT ---
Social Work Spoke with dtr further about paying privately for copays beginning 02/02 or submitting [facility] application. Dtr stated the copays would be her money, as pt does not have any funds, and would be filling out [facility] application. Explained if she does not want to pay copays and have [facility] cover, to transfer to another SNF that is in network with [facility]. Dtr choose to do that. Emailed SNF list. Will continue to follow and plan for transfer skilled to SNF 02/02. CHRISTIAN JasmineW
[2020-01-20 17:26] LABS: Bedside Glucose 100 mg/dL (70-110)
[2020-01-20 17:37] VITALS: PULSE 73
--- NOTE | 2020-01-20 20:08 | NURSING ---
Dr. Cho to the unit. Requesting pt to start Aricept 5mg m3dyumw starting 01/24. Then to start Aricept 10mg QHS. Requesting labs for folate, liver profile, b12 and ammonia. Requesting MRI of the brain without contrast. Then for his office to be called with results. Dr. Castellon updated and all orders entered.
[2020-01-20] MEDS: Doxepin Hcl 25 MG Capsule PO (20:16)
[2020-01-20] MEDS: Gabapentin 300 MG Capsule PO (20:16)
[2020-01-20] MEDS: Atorvastatin Calcium 40 MG Tablet PO (20:16)
[2020-01-20 21:25] LABS: Bedside Glucose 254 mg/dL (70-110)
--- NOTE | 2020-01-21 01:13 | NURSING ---
Pt more confused overnight, thinking she has to get up for an appointment and not sure where she was/what time of day. Reoriented easily. Bed alarm on and functioning. Call light within reach.
[2020-01-21 04:30] VITALS: BP 122/57; PULSE 60; RESP 18; TEMP 36.2; O2SAT 94
[2020-01-21 04:31] VITALS: PULSE 60
[2020-01-21] MEDS: Empagliflozin 25 MG Tablet PO (04:31)
[2020-01-21] MEDS: Polyethylene Glycol 3350 17 GM PACKET PO (04:31)
[2020-01-21] MEDS: Metoprolol Tartrate 50 MG Tablet PO ×2 (04:31→16:57)
[2020-01-21] MEDS: Loratadine 10 MG Tablet PO (04:32)
[2020-01-21] MEDS: Pantoprazole Sodium 20 MG Tablet PO (04:32)
[2020-01-21] MEDS: Senna/Docusate Sodium 1 Tablet PO ×2 (04:32→16:54)
[2020-01-21] MEDS: Ciprofloxacin 500 MG Tablet PO ×2 (04:32→16:53)
[2020-01-21] MEDS: ARIPiprazole 10 MG Tablet PO ×2 (04:32→21:17)
[2020-01-21] MEDS: Nystatin Powder 15gm Bottle 1 APPLIC TOPICAL ×2 (04:32→21:19)
[2020-01-21] MEDS: Losartan Potassium 25 MG Tablet 12.5 MG PO (04:32)
[2020-01-21] MEDS: DULoxetine Hcl 60 MG Capsule PO (04:32)
[2020-01-21] MEDS: Menthol/Lanolin/Calamine/Znox 113 GM Tube 1 APPLIC TOPICAL ×2 (04:33→21:18)
[2020-01-21] MEDS: APIXABAN 5 MG TABLET PO ×2 (04:37→16:54)
[2020-01-21 06:01] LABS: AST(SGOT) 28 U/L (15-37); Alanine Aminotransfer ALT/SGPT 53 U/L (13-56); Albumin, Serum 2.4 g/dL (3.2-5.0); Alkaline Phosphatase 97 U/L (45-117); Bilirubin, Direct 0.14 mg/dL (0.00-0.30); Globulin 4.4 g/dL (2.2-4.2); Protein, Total 6.8 g/dL (6.4-8.2)
[2020-01-21 06:26] LABS: Bedside Glucose 215 mg/dL (70-110)
[2020-01-21 07:20] VITALS: O2SAT 94
[2020-01-21] MEDS: Aspirin E.C. 81 MG Tablet PO (08:21)
[2020-01-21] MEDS: oxyCODONE 5 MG Tablet PO (08:21)
[2020-01-21] MEDS: glipiZIDE XL 5 MG Tablet 10 MG PO (08:21)
[2020-01-21] MEDS: Multivitamins,Therapeutic Tablet 1 TABLET PO (08:21)
[2020-01-21] MEDS: Insulin Human 75/25 Kwickpen 70 UNIT SC (08:22)
--- NOTE | 2020-01-21 08:32 | NURSING ---
nicotine patch verified to left delt
--- NOTE | 2020-01-21 08:49 | CASEMGMT ---
Social Work Received completed Medicaid application from dtr. Faxed to [facility]. Dtr requested referrals to [facility] and [facility]. Referrals made. Will continue to follow. CHRISTIAN Jasmine
[2020-01-21 11:06] LABS: Bedside Glucose 224 mg/dL (70-110)
[2020-01-21 11:25] LABS: Vitamin B12 822 pg/mL (211-911)
[2020-01-21 13:32] VITALS: BP 90/54; PULSE 85; RESP 17; TEMP 36.3; O2SAT 97
[2020-01-21] MEDS: Acetaminophen 500 MG Tablet 1000 MG PO (16:04)
[2020-01-21 16:56] LABS: Bedside Glucose 127 mg/dL (70-110)
[2020-01-21 16:57] VITALS: BP 122/53; PULSE 84
[2020-01-21] MEDS: Atorvastatin Calcium 40 MG Tablet PO (21:17)
[2020-01-21] MEDS: Gabapentin 300 MG Capsule PO (21:17)
[2020-01-21] MEDS: MELATONIN 10 MG TABLET PO (21:17)
[2020-01-21 21:20] LABS: Bedside Glucose 157 mg/dL (70-110)
[2020-01-22] MEDS: Acetaminophen 500 MG Tablet 1000 MG PO ×2 (00:11→12:42)
[2020-01-22 04:31] VITALS: BP 111/63; PULSE 67; RESP 17; TEMP 36.1; O2SAT 91
[2020-01-22] MEDS: Menthol/Lanolin/Calamine/Znox 113 GM Tube 1 APPLIC TOPICAL ×2 (05:33→20:31)
[2020-01-22] MEDS: Polyethylene Glycol 3350 17 GM PACKET PO (05:34)
[2020-01-22] MEDS: Nystatin Powder 15gm Bottle 1 APPLIC TOPICAL ×2 (05:34→20:30)
[2020-01-22 05:35] VITALS: BP 111/63; PULSE 67
[2020-01-22] MEDS: Metoprolol Tartrate 50 MG Tablet PO ×2 (05:35→17:25)
[2020-01-22] MEDS: APIXABAN 5 MG TABLET PO ×2 (05:35→17:24)
[2020-01-22] MEDS: Ciprofloxacin 500 MG Tablet PO ×2 (05:36→17:24)
[2020-01-22] MEDS: Loratadine 10 MG Tablet PO (05:36)
[2020-01-22] MEDS: Losartan Potassium 25 MG Tablet 12.5 MG PO (05:37)
[2020-01-22] MEDS: DULoxetine Hcl 60 MG Capsule PO (05:38)
[2020-01-22] MEDS: Empagliflozin 25 MG Tablet PO (05:38)
[2020-01-22] MEDS: Pantoprazole Sodium 20 MG Tablet PO (05:39)
[2020-01-22] MEDS: Senna/Docusate Sodium 1 Tablet PO ×2 (05:39→17:25)
[2020-01-22 06:25] LABS: Bedside Glucose 214 mg/dL (70-110)
[2020-01-22 07:32] LABS: Absolute Lymphocyte Count 2.02 X10^3/uL (0.83-4.51); Absolute Neutrophil Count 5.6 X10^3/uL (2.0-7.7); Basophil# 0.06 X10^3/uL; Basophil% 0.7 % (0-1); Eosinophil# 0.08 X10^3/uL; Eosinophils% 0.9 % (0-5); Hemoglobin 12.5 g/dL (12.0-15.0); Lymphocyte # 2.02 X10^3/ul (4.0); Mean Corp Hgb Conc 32.1 g/dL (32-36); Mean Corpuscular Volume 93.8 fL (81-99); Mean Platelet Vol. 9.8 fl (6.2-12.0); Monocyte# 0.86 X10^3/uL; Monocyte% 9.8 % (0-10); NRBC Flagged by Analyzer 0 % (0-5); Neutrophil # 5.63 X10^3/uL (2.7-7.7); Neutrophil % 64.1 % (47-70); Platelet Count 407 K/mm3 (150-450); RBC Distribution Width SD 41.9 fl (35.1-43.9); Red Blood Count 4.16 M/mm3 (4.2-5.4); White Blood Count 8.8 K/mm3 (4.4-11.0)
[2020-01-22 07:51] LABS: Anion Gap 7 (5-15); BUN 24 mg/dL (7-18); BUN/Creat Ratio 22.2 RATIO (10-20); Calcium,Total 8.9 mg/dL (8.5-10.1); Chloride 103 mmol/L (98-107); Creatinine, Serum 1.08 mg/dL (0.55-1.02); EST Glomerular Filtration Rate 54 mL/min (>60); Est Glom Filt Rate - Afr Amer 65 mL/min (>60); Estimated Creatinine Clearance 52.39 ml/min; Glucose 234 mg/dL (74-106); Sodium Level 136 mmol/L (136-145)
[2020-01-22] MEDS: oxyCODONE 5 MG Tablet PO ×2 (08:22→15:58)
[2020-01-22] MEDS: Aspirin E.C. 81 MG Tablet PO (08:23)
[2020-01-22] MEDS: glipiZIDE XL 5 MG Tablet 10 MG PO (08:23)
[2020-01-22] MEDS: Multivitamins,Therapeutic Tablet 1 TABLET PO (08:24)
[2020-01-22] MEDS: Insulin Human 75/25 Kwickpen 70 UNIT SC (08:24)
[2020-01-22 11:05] LABS: Bedside Glucose 207 mg/dL (70-110)
[2020-01-22] MEDS: Tuberculin,Purif.prot.deriv. 50 TU/ML Vial 5 ML ID (11:24)
[2020-01-22 14:03] VITALS: BP 109/58; PULSE 69; RESP 16; TEMP 36.7; O2SAT 97
[2020-01-22 16:26] LABS: Bedside Glucose 164 mg/dL (70-110)
[2020-01-22 17:25] VITALS: PULSE 69
[2020-01-22] MEDS: ARIPiprazole 10 MG Tablet PO (20:29)
[2020-01-22] MEDS: Gabapentin 300 MG Capsule PO (20:29)
[2020-01-22] MEDS: Atorvastatin Calcium 40 MG Tablet PO (20:30)
[2020-01-22] MEDS: MELATONIN 10 MG TABLET PO (20:30)
[2020-01-22 21:36] LABS: Bedside Glucose 283 mg/dL (70-110)
[2020-01-23] MEDS: oxyCODONE 5 MG Tablet PO ×2 (01:51→14:36)
[2020-01-23 06:02] VITALS: BP 138/71; PULSE 67; RESP 16; TEMP 36.3; O2SAT 95
[2020-01-23 06:05] VITALS: BP 138/71; PULSE 67
[2020-01-23] MEDS: Metoprolol Tartrate 50 MG Tablet PO ×2 (06:05→17:55)
[2020-01-23] MEDS: Senna/Docusate Sodium 1 Tablet PO ×2 (06:05→17:55)
[2020-01-23] MEDS: Loratadine 10 MG Tablet PO (06:06)
[2020-01-23] MEDS: APIXABAN 5 MG TABLET PO ×2 (06:06→17:54)
[2020-01-23] MEDS: Ciprofloxacin 500 MG Tablet PO ×2 (06:06→17:54)
[2020-01-23] MEDS: DULoxetine Hcl 60 MG Capsule PO (06:06)
[2020-01-23] MEDS: Pantoprazole Sodium 20 MG Tablet PO (06:06)
[2020-01-23] MEDS: Empagliflozin 25 MG Tablet PO (06:06)
[2020-01-23] MEDS: Losartan Potassium 25 MG Tablet 12.5 MG PO (06:06)
[2020-01-23] MEDS: Nystatin Powder 15gm Bottle 1 APPLIC TOPICAL ×2 (06:08→21:02)
[2020-01-23] MEDS: Menthol/Lanolin/Calamine/Znox 113 GM Tube 1 APPLIC TOPICAL ×2 (06:08→21:01)
[2020-01-23 06:26] LABS: Bedside Glucose 269 mg/dL (70-110)
[2020-01-23] MEDS: Aspirin E.C. 81 MG Tablet PO (08:08)
[2020-01-23] MEDS: glipiZIDE XL 5 MG Tablet 10 MG PO (08:08)
[2020-01-23] MEDS: Multivitamins,Therapeutic Tablet 1 TABLET PO (08:08)
[2020-01-23] MEDS: Insulin Human 75/25 Kwickpen 70 UNIT SC (08:53)
[2020-01-23 11:16] LABS: Bedside Glucose 307 mg/dL (70-110)
[2020-01-23] MEDS: Glucerna Shake 120 ML LIQUID PO ×3 (11:38→21:04)
[2020-01-23 13:35] VITALS: BP 111/53; PULSE 65; RESP 18; TEMP 36.2; O2SAT 96
--- NOTE | 2020-01-23 15:30 | NURSING ---
Daughter Reina was called for daily update, no answer message was left
[2020-01-23 16:26] LABS: Bedside Glucose 144 mg/dL (70-110)
[2020-01-23] MEDS: Acetaminophen 500 MG Tablet 1000 MG PO (17:52)
[2020-01-23 17:55] VITALS: PULSE 65
[2020-01-23] MEDS: Insulin Lispro 100 UNIT/ML INSULN.PEN 10 UNIT SC (17:59)
[2020-01-23] MEDS: ARIPiprazole 10 MG Tablet PO (21:01)
[2020-01-23] MEDS: Atorvastatin Calcium 40 MG Tablet PO (21:01)
[2020-01-23] MEDS: Gabapentin 300 MG Capsule PO (21:02)
[2020-01-23] MEDS: MELATONIN 10 MG TABLET PO (21:02)
[2020-01-23 21:20] LABS: Bedside Glucose 167 mg/dL (70-110)
[2020-01-24 04:00] VITALS: BP 100/55; PULSE 62; RESP 16; TEMP 36.6; O2SAT 95
[2020-01-24 06:26] LABS: Bedside Glucose 242 mg/dL (70-110)
[2020-01-24 06:58] VITALS: BP 100/55; PULSE 62
[2020-01-24] MEDS: Empagliflozin 25 MG Tablet PO (06:58)
[2020-01-24] MEDS: Metoprolol Tartrate 50 MG Tablet PO ×2 (06:58→17:53)
[2020-01-24] MEDS: Glucerna Shake 120 ML LIQUID PO ×4 (06:58→21:45)
[2020-01-24] MEDS: Loratadine 10 MG Tablet PO (06:58)
[2020-01-24] MEDS: Senna/Docusate Sodium 1 Tablet PO ×2 (06:59→17:54)
[2020-01-24] MEDS: DULoxetine Hcl 60 MG Capsule PO (06:59)
[2020-01-24] MEDS: Losartan Potassium 25 MG Tablet 12.5 MG PO (06:59)
[2020-01-24] MEDS: Ciprofloxacin 500 MG Tablet PO (07:00)
[2020-01-24] MEDS: APIXABAN 5 MG TABLET PO ×2 (07:00→17:52)
[2020-01-24] MEDS: Pantoprazole Sodium 20 MG Tablet PO (07:00)
[2020-01-24] MEDS: Nystatin Powder 15gm Bottle 1 APPLIC TOPICAL ×2 (07:02→21:46)
[2020-01-24] MEDS: Menthol/Lanolin/Calamine/Znox 113 GM Tube 1 APPLIC TOPICAL ×2 (07:02→21:46)
[2020-01-24] MEDS: Insulin Lispro 100 UNIT/ML INSULN.PEN 10 UNIT SC ×3 (08:38→17:51)
[2020-01-24] MEDS: glipiZIDE XL 5 MG Tablet 10 MG PO (08:39)
[2020-01-24] MEDS: Aspirin E.C. 81 MG Tablet PO (08:39)
[2020-01-24] MEDS: Multivitamins,Therapeutic Tablet 1 TABLET PO (08:39)
[2020-01-24] MEDS: Insulin Human 75/25 Kwickpen 70 UNIT SC (08:40)
[2020-01-24 11:21] LABS: Bedside Glucose 168 mg/dL (70-110)
[2020-01-24 13:28] VITALS: BP 115/68; PULSE 68; RESP 16; TEMP 36.2; O2SAT 97
--- NOTE | 2020-01-24 14:34 | CASEMGMT ---
Addendum entered by Melina Peguero 01/24/20 16:07: Spoke with dtr whom requests W as FOC. Pt is agreeable. Notified [facility] and [facility]. Dtr to transport. Plan: DC to [facility] skilled 02/02 Original Note: Social Work [facility] have accepted pt. Left message with dtr for FOC to finalize DC. Will continue to follow. Melina Peguero, [employer] MACHINE FEEDER
[2020-01-24 16:35] LABS: Bedside Glucose 162 mg/dL (70-110)
--- NOTE | 2020-01-24 16:41 | NURSING ---
nicotine patch verified to right delt
[2020-01-24] MEDS: Doxycycline 100 MG CAPSULE PO (17:51)
[2020-01-24 17:53] VITALS: BP 115/68; PULSE 68
[2020-01-24] MEDS: Cephalexin 500 MG Capsule PO (17:53)
[2020-01-24] MEDS: oxyCODONE 5 MG Tablet PO (21:44)
[2020-01-24] MEDS: Gabapentin 300 MG Capsule PO (21:45)
[2020-01-24] MEDS: ARIPiprazole 10 MG Tablet PO (21:45)
[2020-01-24] MEDS: Atorvastatin Calcium 40 MG Tablet PO (21:45)
[2020-01-24] MEDS: MELATONIN 10 MG TABLET PO (21:45)
[2020-01-24 21:46] LABS: Bedside Glucose 159 mg/dL (70-110)
--- NOTE | 2020-01-24 21:58 | DCINST_ITS ---
- Discharge Diagnoses Current Active Problems: Current Active and Chronic Problems (Last Reviewed 01/20/20 @ 11:25 by Lisa Saini) Debility (Acute) Closed right hip fracture (Acute) Diabetes mellitus (Chronic) Hypertension (Chronic) Coronary artery disease (Chronic) Atrial fibrillation (Chronic) Muscle spasm (Chronic) Major depression (Chronic) Cough (Chronic) Allergic rhinitis (Chronic) Diabetic polyneuropathy (Chronic) GERD (gastroesophageal reflux disease) (Chronic) Tobacco abuse (Chronic) You will use the following diet at home:: No restrictions, Regular Your food should be the consistency of: Regular Your liquids should be the consistency of: Regular/Thin Discharge Activity: Return to Normal Activity, May Shower, Use Walker Weight Bearing Status: Weight bearing as tolerated Call your doctor if you observe: Fever of 101 or Higher, Inability to urinate, Inability to have a bowel movement, Shortness of breath, Chest pain, Uncontrolled pain Allergies/Adverse Reactions: Allergies No Known Allergies Allergy (Verified 01/20/20 11:25) Medications to take at Discharge Aspirin [Aspirin EC] 81 mg PO DAILY 12/26/17 Glipizide [Glipizide ER] 10 mg PO DAILY 03/02/19 Metoprolol Tartrate [Lopressor (beta wally)] 50 mg PO BID 03/02/19 Multivitamin with Folic Acid [[facility] One Daily Essential Tablet] 400 mcg PO DAILY 03/02/19 duloxetine 30 mg capsule,delayed release 60 mg PO DAILY #90 cap 07/07/19 benzonatate 100 mg capsule 100 mg PO TID PRN #30 cap 12/07/19 Apixaban [Eliquis] 5 mg PO BID 01/11/20 Aripiprazole 10 mg PO DAILY 01/11/20 Atorvastatin Calcium [Lipitor] 40 mg PO QHS 01/11/20 Cetirizine HCl 10 mg PO DAILY 01/11/20 Empagliflozin [Jardiance] 25 mg PO DAILY 01/11/20 Gabapentin 300 mg PO QHS 01/11/20 Insulin Aspart Prot/Insuln Asp [Insulin Aspart Prot-Insuln Asp] 70 unit SUBCUT DAILY 01/11/20 Omeprazole 20 mg PO DAILY 01/11/20 Senna/Docusate Sodium [Senokot-S] 2 tab PO BID PRN PRN #1 tab 01/14/20 donepezil 5 mg tablet 5 mg PO QHS #30 tab 01/20/20 Acetaminophen [Tylenol] 1,000 mg PO Q6H PRN PRN tablet 01/24/20 Donepezil HCl [Aricept] 5 mg PO QHS tablet 01/24/20 Glucagon 1 mg IM .X1 PRN syringe 01/24/20 Glucerna Shake 120 ml PO 4X/DAY liquid 01/24/20 Insulin Lispro [Humalog KwikPen] 10 unit SC TIDCM insuln.pen 01/24/20 Losartan Potassium [Cozaar] 12.5 mg PO DAILY tablet 01/24/20 Melatonin 10 mg PO QHS tablet 01/24/20 Menthol/Lanolin/Calamine/Znox [Calmoseptine Ointment] 1 applic TOPICAL 0600,2200 tube 01/24/20 Nicotine [Nicoderm] 14 mg TRANSDERM. DAILY patch 01/24/20 Nystatin Powder [Mycostatin Powder] 1 applic TOPICAL 0600,2200 bottle 01/24/20 Oxycodone [Oxyir] 5 mg PO Q6H PRN PRN 7 Days #28 tab 01/24/20 Polyethylene Glycol 3350 [Miralax] 17 gm PO DAILY packet 01/24/20 Senna/Docusate Sodium [Senokot-S] 1 tablet PO BID tablet 01/24/20 The following prescriptions were given: Oxycodone [Oxyir] 5 mg PO Q6H PRN PRN 7 Days #28 tab PRN Reason: Pain Score 4-5/10 Prescription Printed Primary Care Physician: Obed Scott MD [Primary Care Provider] - Please follow up with your Primary Care Physician in: 1 week. Test Results: Test results from this visit will be discussed in further detail at your follow- up appointment, if applicable. Please Follow Up With: Chico Cho MD When: 2 weeks. Please Follow Up With: Sean Griffin MD When: 2 weeks. Proposed Discharge Date: 02/03/20
--- NOTE | 2020-01-24 22:00 | PCM.DC.SUM ---
Discharge Date and Diagnosis - Problem List Patient Problems: Active and Suspected Problems (Last Reviewed 01/20/20 @ 11:25 by Lisa Saini) Debility (Acute) Closed right hip fracture (Acute) Date of Admission: 01/14/20 Date of Discharge: 02/03/20 - Primary Discharge Diagnosis Acute Problems: Active Problems (Last Reviewed 01/20/20 @ 11:25 by Lisa Saini) Debility (Acute) Closed right hip fracture (Acute) - Secondary Discharge Diagnosis Chronic Problems: Chronic Problems (Last Reviewed 01/20/20 @ 11:25 by Lisa Saini) Diabetes mellitus (Chronic) Hypertension (Chronic) Coronary artery disease (Chronic) Atrial fibrillation (Chronic) Muscle spasm (Chronic) Major depression (Chronic) Cough (Chronic) Allergic rhinitis (Chronic) Diabetic polyneuropathy (Chronic) GERD (gastroesophageal reflux disease) (Chronic) Tobacco abuse (Chronic) Back pain (Chronic) Paroxysmal atrial flutter (Chronic) Depression with anxiety (Chronic) CVA (cerebral vascular accident) (Chronic) Stage 3 chronic kidney disease due to type 2 diabetes mellitus (Chronic) Polyneuropathy due to type 2 diabetes mellitus (Chronic) Hyperlipidemia (Chronic) Essential (primary) hypertension (Chronic) History of coronary artery stent placement (Chronic 04/06/11) BMS to the LCX w/ Itnegrity 4 x 15 mm 04/06/2011 Type 2 diabetes mellitus (Chronic) Atherosclerotic heart disease of [place] coronary artery without angina pectoris (Chronic) BMS to the LCX w/ Itnegrity 4 x 15 mm 04/06/2011 Ventricular septal defect (Chronic) Paroxysmal atrial fibrillation (Chronic) Hospital Course and Treatment Imaging Results: 01/17/20 12:41 Diet: Cardiac: Calorie-Controlled Food consistency:: Regular Liquid Consistency:: Regular/Thin Is pt able to select menu?: Yes How many daily calories?: 1600 calorie Clinical Impression(s) from Imaging Studies Chest X-Ray 01/16/20 20:05 IMPRESSION: No acute disease Electronically Signed: Maxim Rubin MD at 20:51 EDT , Service support , KUB X-Ray 01/16/20 20:05 IMPRESSION: Normal x-ray examination of the abdomen and pelvis. Electronically Signed: Maxim Rubin MD at 20:52 EDT , Service support , Labs (Last 48 Hours) 01/23/20 01/23/20 01/23/20 06:05 11:04 16:18 POC Glucose 269 H 307 H 144 H 01/23/20 01/24/20 01/24/20 21:15 06:14 11:13 POC Glucose 167 H 242 H 168 H 01/24/20 01/24/20 16:26 21:15 POC Glucose 162 H 159 H Operations: total hip replacement Procedures: None Summary of Care Provided: The patient is a 64 year old Female with below past medical history hospitalized right hip fracture, underwent right direct anterior total hip replacement 01/12/[address] Griffin, admitted to TCU with debility, here for rehabilitation, strengthening, prior to discharge home alone. Resident treated for E. Coli with Ella, resolved. Resident saw Dr. Cho started on Donepezil for dementia. Dischage to [facility] Skilled PT/OT. Patient Problems: Active and Suspected Problems (Last Reviewed 01/20/20 @ 11:25 by Lisa Saini) Debility (Acute) Closed right hip fracture (Acute) - Physical Exam Vitals/I&O's: Vital Signs Temp Pulse Resp BP Pulse Ox 97.2 F L 68 16 115/68 97 01/24/20 13:28 01/24/20 17:53 01/24/20 13:28 01/24/20 17:53 01/24/20 13:28 Oxygen Flow Rate (L/min) 2 Oxygen Delivery Method Room Air Weight: 82.1 kg Body Mass Index (BMI) 28.3 Finger Stick Blood Glucose 132 Intake and Output for Last 24 Hours 01/22/20 01/23/20 01/24/20 23:59 23:59 23:59 Intake Total 720 / 720 960 / 960 740 / 740 Balance 720 / 720 960 / 960 740 / 740 Laboratory Results 01/24/20 06:14: POC Glucose 242 H 01/24/20 11:13: POC Glucose 168 H 01/24/20 16:26: POC Glucose 162 H 01/24/20 21:15: POC Glucose 159 H Current Medications Acetaminophen (Tylenol) 1,000 mg PO Q6H PRN PRN PRN Reason: Pain Score 1-3/10 Last Admin: 01/23/20 17:52 Dose: 1,000 mg Documented by: Apixaban (Eliquis) 5 mg PO BID [facility] Last Admin: 01/24/20 17:52 Dose: 5 mg Documented by: Aripiprazole (Abilify) 10 mg PO QHS [facility] Last Admin: 01/24/20 21:45 Dose: 10 mg Documented by: Aspirin (Ecotrin) 81 mg PO DAILY@0800 [facility] Last Admin: 01/24/20 08:39 Dose: 81 mg Documented by: Atorvastatin Calcium (Lipitor) 40 mg PO QHS [facility] Last Admin: 01/24/20 21:45 Dose: 40 mg Documented by: Benzonatate (Tessalon Perle) 100 mg PO TID PRN PRN PRN Reason: cough Bisacodyl (Dulcolax) 10 mg RECTAL DAILY PRN PRN Reason: Constipation Calamine/Phenol (Calmoseptine Ointment) 1 applic TOPICAL 0600,2200 [facility]; Protocol Last Admin: 01/24/20 21:46 Dose: 1 applicatio Documented by: Cephalexin (Keflex) 500 mg PO Q12 [facility] Stop: 01/31/20 18:01 Last Admin: 01/24/20 17:53 Dose: 500 mg Documented by: Dextrose (D50w Syringe) 0 gm IV X1 PRN; Protocol PRN Reason: Hypoglycemia Donepezil HCl (Aricept) 5 mg PO QHS [facility] Stop: 02/25/20 22:01 Donepezil HCl (Aricept) 10 mg PO QHS [facility] Doxycycline Monohydrate (Doxycycline) 100 mg PO BID [facility] Stop: 01/31/20 18:01 Last Admin: 01/24/20 17:51 Dose: 100 mg Documented by: Duloxetine HCl (Cymbalta) 60 mg PO DAILY [facility] Last Admin: 01/24/20 06:59 Dose: 60 mg Documented by: Empagliflozin (Jardiance) 25 mg PO DAILY [facility] Last Admin: 01/24/20 06:58 Dose: 25 mg Documented by: Gabapentin (Neurontin) 300 mg PO QHS [facility] Last Admin: 01/24/20 21:45 Dose: 300 mg Documented by: Glipizide (Glucotrol Xl) 10 mg PO DAILY@0800 [facility] Last Admin: 01/24/20 08:39 Dose: 10 mg Documented by: Glucagon () 1 mg IM .X1 PRN PRN Reason: Hypoglycemia Insulin Human Lispro (Humalog Kwikpen (Bk)) 10 unit SC TIDCM [facility] Last Admin: 01/24/20 17:51 Dose: 10 u Documented by: Insulin Lispro Protam/Lispro Human (Humalog Mix 75-25 Kwikpen ([facility])) 70 unit SC DAILYCM [facility] Last Admin: 01/24/20 08:40 Dose: 70 u Documented by: Loratadine (Claritin) 10 mg PO DAILY [facility] Last Admin: 01/24/20 06:58 Dose: 10 mg Documented by: Losartan Potassium (Cozaar) 12.5 mg PO DAILY [facility] Last Admin: 01/24/20 06:59 Dose: 12.5 mg Documented by: Melatonin (Melatonin) 10 mg PO QHS [facility] Last Admin: 01/24/20 21:45 Dose: 10 mg Documented by: Metoprolol Tartrate (Lopressor (Beta Guzman)) 50 mg PO BID [facility] Last Admin: 01/24/20 17:53 Dose: 50 mg Documented by: Multivitamins ([facility]ivitamin) [facility] Last Admin: 01/24/20 08:39 Dose: 1 tablet Documented by: Nicotine (Nicoderm Cq (Pbkc)) 14 mg TRANSDERM. DAILY [facility] Last Admin: 01/24/20 06:57 Dose: 14 mg Documented by: Nutritional Formula (Lactose Free) (Glucerna Shake) 120 ml PO 4X/DAY [facility] Last Admin: 01/24/20 21:45 Dose: 120 ml Documented by: Nystatin (Mycostatin Powder) 1 applic TOPICAL 0600,2200 [facility]; Protocol Last Admin: 01/24/20 21:46 Dose: 1 applicatio Documented by: Oxycodone HCl (Oxyir) 5 mg PO Q6H PRN PRN PRN Reason: Pain Score 4-10/10 Last Admin: 01/24/20 21:44 Dose: 5 mg Documented by: Pantoprazole Sodium (Protonix) 20 mg PO DAILY [facility] Last Admin: 01/24/20 07:00 Dose: 20 mg Documented by: Polyethylene Glycol (Miralax) 17 gm PO DAILY [facility] Last Admin: 01/24/20 07:01 Dose: Not Given Documented by: Senna/Docusate Sodium (Senokot-S, Yessica-Colace) 1 tablet PO BID [facility] Last Admin: 01/24/20 17:54 Dose: 1 tablet Documented by: Sodium Chloride () 10 - 40 ml IV UD PRN PRN Reason: SALINE FLUSH Discharge Diet: No Restrictions Discharge Activity: Return to Normal Activity, May Shower, Use Walker Weight Bearing Status: Weight bearing as tolerated Call your doctor if you observe: Fever of 101 or Higher, Inability to urinate, Inability to have a bowel movement, Shortness of breath, Chest pain, Uncontrolled pain Home Medications: Medications to take at Discharge Aspirin [Aspirin EC] 81 mg PO DAILY 12/26/17 Glipizide [Glipizide ER] 10 mg PO DAILY 03/02/19 Metoprolol Tartrate [Lopressor (beta guzman)] 50 mg PO BID 03/02/19 Multivitamin with Folic Acid [[facility] One Daily Essential Tablet] 400 mcg PO DAILY 03/02/19 duloxetine 30 mg capsule,delayed release 60 mg PO DAILY #90 cap 07/07/19 benzonatate 100 mg capsule 100 mg PO TID PRN #30 cap 12/07/19 Apixaban [Eliquis] 5 mg PO BID 01/11/20 Aripiprazole 10 mg PO DAILY 01/11/20 Atorvastatin Calcium [Lipitor] 40 mg PO QHS 01/11/20 Cetirizine HCl 10 mg PO DAILY 01/11/20 Empagliflozin [Jardiance] 25 mg PO DAILY 01/11/20 Gabapentin 300 mg PO QHS 01/11/20 Insulin Aspart Prot/Insuln Asp [Insulin Aspart Prot-Insuln Asp] 70 unit SUBCUT DAILY 01/11/20 Omeprazole 20 mg PO DAILY 01/11/20 Senna/Docusate Sodium [Senokot-S] 2 tab PO BID PRN PRN #1 tab 01/14/20 donepezil 5 mg tablet 5 mg PO QHS #30 tab 01/20/20 Acetaminophen [Tylenol] 1,000 mg PO Q6H PRN PRN tablet 01/24/20 Donepezil HCl [Aricept] 5 mg PO QHS tablet 01/24/20 Glucagon 1 mg IM .X1 PRN syringe 01/24/20 Glucerna Shake 120 ml PO 4X/DAY liquid 01/24/20 Insulin Lispro [Humalog KwikPen] 10 unit SC TIDCM insuln.pen 01/24/20 Losartan Potassium [Cozaar] 12.5 mg PO DAILY tablet 01/24/20 Melatonin 10 mg PO QHS tablet 01/24/20 Menthol/Lanolin/Calamine/Znox [Calmoseptine Ointment] 1 applic TOPICAL 0600,2200 tube 01/24/20 Nicotine [Nicoderm] 14 mg TRANSDERM. DAILY patch 01/24/20 Nystatin Powder [Mycostatin Powder] 1 applic TOPICAL 0600,2200 bottle 01/24/20 Oxycodone [Oxyir] 5 mg PO Q6H PRN PRN 7 Days #28 tab 01/24/20 Polyethylene Glycol 3350 [Miralax] 17 gm PO DAILY packet 01/24/20 Senna/Docusate Sodium [Senokot-S] 1 tablet PO BID tablet 01/24/20 Following Prescriptions Were Given to Patient: Oxycodone [Oxyir] 5 mg PO Q6H PRN PRN 7 Days #28 tab PRN Reason: Pain Score 4-5/10 Prescription Printed Primary Care Physician: Obed Scott MD [Primary Care Provider] - Please follow up with your Primary Care Physician in: 1 week. Please Follow Up With: Chico Cho MD When: 2 weeks. Please Follow Up With: Sean Griffin MD When: 2 weeks. Disposition: [facility] facility Minutes spent on discharge:: 35 Patient Condition:: Stable Medical Necessity - Tobacco Use Smoking Status: Current some day smoker Tobacco Use: Cigarettes Meaningful Use Info Meaningful Use Diagnoses (Choose all that apply): None applicable
--- NOTE | 2020-01-24 22:02 | PCM.TXEXTCAR ---
- Diet 01/17/20 12:41 Diet: Cardiac: Calorie-Controlled Food consistency:: Regular Liquid Consistency:: Regular/Thin Is pt able to select menu?: Yes How many daily calories?: 1600 calorie - Routine Orders/Code Status Suppository Type: Dulcolax 10mg Suppository Frequency: Daily PRN Code Status: DNRCC - Wound(s) Right Hip Wound Type: Surgical Incision Dressing Change: mepilex coccyx Wound Type: Pressure Injury Dressing Change: christen - Therapies Weight Bearing: Weight bearing as tolerated Extremity Affected:: Bilateral Lower Physical Therapy: Eval and Treat Occupational Therapy: Eval and Treat - Problem/Diagnosis (1) Debility Status: Acute Current Visit: Yes (2) Closed right hip fracture Status: Acute Current Visit: Yes (3) Diabetes mellitus Status: Chronic Current Visit: Yes (4) Hypertension Status: Chronic Current Visit: Yes (5) Coronary artery disease Status: Chronic Current Visit: Yes (6) Atrial fibrillation Status: Chronic Current Visit: Yes (7) Muscle spasm Status: Chronic Current Visit: Yes (8) Major depression Status: Chronic Current Visit: Yes (9) Cough Status: Chronic Current Visit: Yes (10) Allergic rhinitis Status: Chronic Current Visit: Yes (11) Diabetic polyneuropathy Status: Chronic Current Visit: Yes (12) GERD (gastroesophageal reflux disease) Status: Chronic Current Visit: Yes (13) Tobacco abuse Status: Chronic Current Visit: Yes (14) Hyperlipidemia Status: Chronic Current Visit: No - Allergies/Procedures Done in Hospital Allergies/Adverse Reactions: Allergies No Known Allergies Allergy (Verified 01/20/20 11:25) - Type of Care/Length of Stay Estimated LOS: Convalescent Care Less Than 30 days Type of Care Needed: Skilled Rehab Potential: Fair Prognosis: Fair - Additional Orders/Day of Discharge Day of Discharge: 02/03/20 - Dietary and Speech Recommendations Dietitian Recommendations/Changes: Will continue 1600 dyllan Cardiac diet d/t pmhx. Will d/c ONS at [facility] when R hip/coccyx healed - Follow Up Care Primary Care Physician: Obed Scott MD [Primary Care Provider] - Please follow up with your Primary Care Physician in: 1 week. Please Follow Up With: Chico Cho MD When: 2 weeks. Please Follow Up With: Sean Griffin MD When: 2 weeks.
[2020-01-25 04:00] VITALS: BP 109/46; PULSE 80; RESP 18; TEMP 36.3; O2SAT 98
[2020-01-25 06:22] VITALS: BP 131/73; PULSE 71
[2020-01-25] MEDS: Doxycycline 100 MG CAPSULE PO ×2 (06:22→17:07)
[2020-01-25] MEDS: Cephalexin 500 MG Capsule PO ×2 (06:22→17:08)
[2020-01-25] MEDS: oxyCODONE 5 MG Tablet PO (06:22)
[2020-01-25] MEDS: Metoprolol Tartrate 50 MG Tablet PO ×2 (06:22→17:13)
[2020-01-25] MEDS: Losartan Potassium 25 MG Tablet 12.5 MG PO (06:22)
[2020-01-25] MEDS: Menthol/Lanolin/Calamine/Znox 113 GM Tube 1 APPLIC TOPICAL ×2 (06:22→21:44)
[2020-01-25] MEDS: APIXABAN 5 MG TABLET PO ×2 (06:22→17:08)
[2020-01-25] MEDS: DULoxetine Hcl 60 MG Capsule PO (06:22)
[2020-01-25] MEDS: Empagliflozin 25 MG Tablet PO (06:22)
[2020-01-25] MEDS: Loratadine 10 MG Tablet PO (06:22)
[2020-01-25] MEDS: Pantoprazole Sodium 20 MG Tablet PO (06:22)
[2020-01-25] MEDS: Senna/Docusate Sodium 1 Tablet PO ×2 (06:22→17:08)
[2020-01-25] MEDS: Nystatin Powder 15gm Bottle 1 APPLIC TOPICAL ×2 (06:23→21:44)
[2020-01-25 06:26] LABS: Bedside Glucose 205 mg/dL (70-110)
--- NOTE | 2020-01-25 08:06 | MDS.RN ---
Information for the mds was obtained from review of the clinical record, interview of resident, staff, and direct observation of resident's care.
[2020-01-25] MEDS: Insulin Lispro 100 UNIT/ML INSULN.PEN 10 UNIT SC ×3 (08:28→17:14)
[2020-01-25] MEDS: Insulin Human 75/25 Kwickpen 70 UNIT SC (08:28)
[2020-01-25] MEDS: Multivitamins,Therapeutic Tablet 1 TABLET PO (08:31)
[2020-01-25] MEDS: glipiZIDE XL 5 MG Tablet 10 MG PO (08:31)
[2020-01-25] MEDS: Aspirin E.C. 81 MG Tablet PO (08:31)
[2020-01-25 09:57] VITALS: PULSE 61; RESP 16; O2SAT 99
--- NOTE | 2020-01-25 10:41 | NURSING ---
Called Dr. Griffin's office per Dr. Castellon's request for appt for seroma of the right hip. Dr. Griffin is in surgery today and the pt already has an appt on at 10:30, so Dr. Griffin will assess the patient then.
[2020-01-25 10:46] LABS: Bedside Glucose 234 mg/dL (70-110)
--- NOTE | 2020-01-25 10:46 | NURSING ---
Left message for patient's daughter to contact TCU.
[2020-01-25] MEDS: Glucerna Shake 120 ML LIQUID PO ×3 (11:09→21:47)
--- NOTE | 2020-01-25 13:14 | NURSING ---
RN gave family update.
[2020-01-25 16:26] LABS: Bedside Glucose 151 mg/dL (70-110)
[2020-01-25 17:11] VITALS: BP 111/51; PULSE 73; RESP 24; TEMP 36.4; O2SAT 95
[2020-01-25 17:13] VITALS: PULSE 73
--- NOTE | 2020-01-25 19:32 | NURSING ---
nicotine patch to left delt.
[2020-01-25 21:36] LABS: Bedside Glucose 174 mg/dL (70-110)
[2020-01-25] MEDS: Donepezil HCl 5 MG Tablet PO (21:43)
[2020-01-25] MEDS: MELATONIN 10 MG TABLET PO (21:43)
[2020-01-25] MEDS: ARIPiprazole 10 MG Tablet PO (21:43)
[2020-01-25] MEDS: Atorvastatin Calcium 40 MG Tablet PO (21:43)
[2020-01-25] MEDS: Acetaminophen 500 MG Tablet 1000 MG PO (21:43)
[2020-01-25] MEDS: Gabapentin 300 MG Capsule PO (21:44)
[2020-01-26] MEDS: Empagliflozin 25 MG Tablet PO (05:46)
[2020-01-26] MEDS: Losartan Potassium 25 MG Tablet 12.5 MG PO (05:46)
[2020-01-26] MEDS: Pantoprazole Sodium 20 MG Tablet PO (05:46)
[2020-01-26] MEDS: APIXABAN 5 MG TABLET PO ×2 (05:46→17:11)
[2020-01-26] MEDS: Doxycycline 100 MG CAPSULE PO ×2 (05:46→17:11)
[2020-01-26] MEDS: Senna/Docusate Sodium 1 Tablet PO (05:46)
[2020-01-26] MEDS: Cephalexin 500 MG Capsule PO ×2 (05:47→17:11)
[2020-01-26] MEDS: Loratadine 10 MG Tablet PO (05:47)
[2020-01-26] MEDS: DULoxetine Hcl 60 MG Capsule PO (05:47)
[2020-01-26] MEDS: Glucerna Shake 120 ML LIQUID PO ×3 (05:54→20:27)
[2020-01-26] MEDS: Menthol/Lanolin/Calamine/Znox 113 GM Tube 1 APPLIC TOPICAL ×2 (05:56→20:25)
[2020-01-26] MEDS: Nystatin Powder 15gm Bottle 1 APPLIC TOPICAL ×2 (05:56→20:24)
[2020-01-26 05:59] VITALS: BP 122/75; PULSE 71; RESP 16; TEMP 36.3; O2SAT 97
[2020-01-26 06:01] VITALS: BP 122/75; PULSE 71
[2020-01-26] MEDS: Metoprolol Tartrate 50 MG Tablet PO ×2 (06:01→17:11)
[2020-01-26] MEDS: Polyethylene Glycol 3350 17 GM PACKET PO (06:01)
[2020-01-26 06:15] LABS: Bedside Glucose 180 mg/dL (70-110)
[2020-01-26] MEDS: Acetaminophen 500 MG Tablet 1000 MG PO (07:03)
[2020-01-26] MEDS: oxyCODONE 5 MG Tablet PO ×2 (07:04→13:41)
[2020-01-26] MEDS: Insulin Human 75/25 Kwickpen 70 UNIT SC (08:35)
[2020-01-26] MEDS: Aspirin E.C. 81 MG Tablet PO (08:37)
[2020-01-26] MEDS: Insulin Lispro 100 UNIT/ML INSULN.PEN 10 UNIT SC ×3 (08:38→18:21)
[2020-01-26] MEDS: glipiZIDE XL 5 MG Tablet 10 MG PO (08:38)
[2020-01-26] MEDS: Multivitamins,Therapeutic Tablet 1 TABLET PO (08:38)
[2020-01-26 11:10] LABS: Bedside Glucose 168 mg/dL (70-110)
[2020-01-26 14:50] VITALS: BP 104/58; PULSE 100; RESP 16; TEMP 36.7; O2SAT 98
[2020-01-26 17:00] LABS: Bedside Glucose 149 mg/dL (70-110)
[2020-01-26 17:11] VITALS: BP 122/64; PULSE 94
[2020-01-26] MEDS: ARIPiprazole 10 MG Tablet PO (20:24)
[2020-01-26] MEDS: Atorvastatin Calcium 40 MG Tablet PO (20:24)
[2020-01-26] MEDS: Donepezil HCl 5 MG Tablet PO (20:24)
[2020-01-26] MEDS: Gabapentin 300 MG Capsule PO (20:24)
[2020-01-26] MEDS: MELATONIN 10 MG TABLET PO (20:24)
[2020-01-26 21:40] LABS: Bedside Glucose 149 mg/dL (70-110)
[2020-01-27 04:01] VITALS: BP 127/66; PULSE 89; RESP 18; TEMP 36.6; O2SAT 97
[2020-01-27] MEDS: Loratadine 10 MG Tablet PO (04:05)
[2020-01-27] MEDS: Losartan Potassium 25 MG Tablet 12.5 MG PO (04:05)
[2020-01-27 04:06] VITALS: BP 127/66; PULSE 89
[2020-01-27] MEDS: Metoprolol Tartrate 50 MG Tablet PO ×2 (04:06→17:29)
[2020-01-27] MEDS: Pantoprazole Sodium 20 MG Tablet PO (04:06)
[2020-01-27] MEDS: DULoxetine Hcl 60 MG Capsule PO (04:06)
[2020-01-27] MEDS: Doxycycline 100 MG CAPSULE PO ×2 (04:07→17:27)
[2020-01-27] MEDS: Cephalexin 500 MG Capsule PO ×2 (04:07→17:27)
[2020-01-27] MEDS: Menthol/Lanolin/Calamine/Znox 113 GM Tube 1 APPLIC TOPICAL ×2 (04:07→20:40)
[2020-01-27] MEDS: Empagliflozin 25 MG Tablet PO (04:07)
[2020-01-27] MEDS: APIXABAN 5 MG TABLET PO (04:07)
[2020-01-27] MEDS: Nystatin Powder 15gm Bottle 1 APPLIC TOPICAL ×2 (04:08→20:40)
[2020-01-27] MEDS: Glucerna Shake 120 ML LIQUID PO ×4 (04:11→20:38)
[2020-01-27 06:35] LABS: Bedside Glucose 203 mg/dL (70-110)
[2020-01-27] MEDS: oxyCODONE 5 MG Tablet PO (08:30)
[2020-01-27] MEDS: Multivitamins,Therapeutic Tablet 1 TABLET PO (08:32)
[2020-01-27] MEDS: Aspirin E.C. 81 MG Tablet PO (08:32)
[2020-01-27] MEDS: glipiZIDE XL 5 MG Tablet 10 MG PO (08:32)
[2020-01-27] MEDS: Insulin Human 75/25 Kwickpen 70 UNIT SC (08:33)
[2020-01-27] MEDS: Insulin Lispro 100 UNIT/ML INSULN.PEN 10 UNIT SC ×3 (08:34→17:24)
[2020-01-27] MEDS: Acetaminophen 500 MG Tablet 1000 MG PO (12:33)
[2020-01-27 12:35] VITALS: RESP 18
[2020-01-27 13:39] VITALS: BP 101/57; PULSE 76; RESP 16; TEMP 36.2; O2SAT 98
--- NOTE | 2020-01-27 13:56 | NURSING ---
Daughter called and was upset stating that pt's son picked her up today for a doctors appointment and there was dirt all over her neck and it looks like it has never been washed. She stated pts son took a picture and sent it to her. This nurse talked with staff and learned pt had received a shower yesterday and had ADLs with OT. Upon return, pt's neck was cleansed and no dirt was noted, pt did have some dry skin and hyperpigmentation noted to neck. Daughter was notified and reassured, eucerin cream was ordered.
[2020-01-27 15:16] LABS: Bedside Glucose 239 mg/dL (70-110)
[2020-01-27] MEDS: Aspirin 81 MG TAB.CHEW PO (17:27)
[2020-01-27 17:29] VITALS: BP 101/57; PULSE 76
[2020-01-27] MEDS: Donepezil HCl 5 MG Tablet PO (20:39)
[2020-01-27] MEDS: Gabapentin 300 MG Capsule PO (20:39)
[2020-01-27] MEDS: MELATONIN 10 MG TABLET PO (20:39)
[2020-01-27] MEDS: Atorvastatin Calcium 40 MG Tablet PO (20:39)
[2020-01-27] MEDS: ARIPiprazole 10 MG Tablet PO (20:39)
[2020-01-27 22:06] LABS: Bedside Glucose 168 mg/dL (70-110)
[2020-01-28] MEDS: Glucerna Shake 120 ML LIQUID PO ×4 (05:45→20:57)
[2020-01-28] MEDS: Losartan Potassium 25 MG Tablet 12.5 MG PO (05:46)
[2020-01-28] MEDS: Aspirin 81 MG TAB.CHEW PO ×2 (05:46→17:48)
[2020-01-28] MEDS: Loratadine 10 MG Tablet PO (05:46)
[2020-01-28] MEDS: Empagliflozin 25 MG Tablet PO (05:47)
[2020-01-28] MEDS: DULoxetine Hcl 60 MG Capsule PO (05:47)
[2020-01-28] MEDS: Doxycycline 100 MG CAPSULE PO ×2 (05:47→17:48)
[2020-01-28 05:48] VITALS: BP 124/76; PULSE 70
[2020-01-28] MEDS: Metoprolol Tartrate 50 MG Tablet PO ×2 (05:48→17:48)
[2020-01-28] MEDS: Pantoprazole Sodium 20 MG Tablet PO (05:48)
[2020-01-28] MEDS: Nystatin Powder 15gm Bottle 1 APPLIC TOPICAL ×2 (05:50→20:55)
[2020-01-28] MEDS: Menthol/Lanolin/Calamine/Znox 113 GM Tube 1 APPLIC TOPICAL ×2 (05:50→20:54)
[2020-01-28 05:58] VITALS: BP 124/76; PULSE 70; RESP 16; TEMP 36.3; O2SAT 96
[2020-01-28] MEDS: Cephalexin 500 MG Capsule PO ×2 (06:05→17:48)
[2020-01-28 06:31] LABS: Bedside Glucose 195 mg/dL (70-110)
[2020-01-28] MEDS: Multivitamins,Therapeutic Tablet 1 TABLET PO (07:44)
[2020-01-28] MEDS: glipiZIDE XL 5 MG Tablet 10 MG PO (07:44)
[2020-01-28] MEDS: oxyCODONE 5 MG Tablet PO (07:46)
[2020-01-28] MEDS: Insulin Lispro 100 UNIT/ML INSULN.PEN 10 UNIT SC ×3 (07:47→17:50)
[2020-01-28] MEDS: Insulin Human 75/25 Kwickpen 70 UNIT SC (08:20)
[2020-01-28 11:30] LABS: Bedside Glucose 120 mg/dL (70-110)
[2020-01-28 14:04] VITALS: BP 92/45; PULSE 64; RESP 18; TEMP 35.8; O2SAT 97
--- NOTE | 2020-01-28 17:15 | NURSING ---
Seen and examined resident due to daughter's concerns of discoloration on her mother's neck. Areas on bilateral neck have darker skin pigmentation than surrounding skin. No signs of bruising or neglect. Resident denies any kind of mistreatment from staff. States, in fact they go out of their way to care for me. Spoke with daughter and resident's sister, sister who is a twin acknowledged that she has the same type of discoloration on her skin.
[2020-01-28 17:16] LABS: Bedside Glucose 241 mg/dL (70-110)
[2020-01-28 17:48] VITALS: BP 119/62; PULSE 82
[2020-01-28] MEDS: Donepezil HCl 5 MG Tablet PO (20:58)
[2020-01-28] MEDS: ARIPiprazole 10 MG Tablet PO (20:58)
[2020-01-28] MEDS: Atorvastatin Calcium 40 MG Tablet PO (20:59)
[2020-01-28] MEDS: Gabapentin 300 MG Capsule PO (21:00)
[2020-01-28] MEDS: MELATONIN 10 MG TABLET PO (21:00)
[2020-01-28 21:45] LABS: Bedside Glucose 167 mg/dL (70-110)
[2020-01-29] MEDS: oxyCODONE 5 MG Tablet PO ×3 (02:57→22:39)
[2020-01-29 02:58] VITALS: BP 114/54; PULSE 65; RESP 16; TEMP 37; O2SAT 98
[2020-01-29] MEDS: Polyethylene Glycol 3350 17 GM PACKET PO (05:34)
[2020-01-29] MEDS: Pantoprazole Sodium 20 MG Tablet PO (05:34)
[2020-01-29 05:36] VITALS: BP 114/54; PULSE 65
[2020-01-29] MEDS: Metoprolol Tartrate 50 MG Tablet PO ×2 (05:36→17:09)
[2020-01-29] MEDS: Losartan Potassium 25 MG Tablet 12.5 MG PO (05:37)
[2020-01-29] MEDS: Senna/Docusate Sodium 1 Tablet PO ×2 (05:37→17:09)
[2020-01-29] MEDS: Loratadine 10 MG Tablet PO (05:37)
[2020-01-29] MEDS: Doxycycline 100 MG CAPSULE PO ×2 (05:37→17:09)
[2020-01-29] MEDS: Aspirin 81 MG TAB.CHEW PO ×2 (05:37→17:09)
[2020-01-29] MEDS: DULoxetine Hcl 60 MG Capsule PO (05:37)
[2020-01-29] MEDS: Cephalexin 500 MG Capsule PO ×2 (05:37→17:09)
[2020-01-29] MEDS: Empagliflozin 25 MG Tablet PO (05:37)
[2020-01-29] MEDS: Glucerna Shake 120 ML LIQUID PO ×4 (05:38→20:21)
[2020-01-29] MEDS: Menthol/Lanolin/Calamine/Znox 113 GM Tube 1 APPLIC TOPICAL ×2 (05:38→20:21)
[2020-01-29] MEDS: Nystatin Powder 15gm Bottle 1 APPLIC TOPICAL ×2 (05:38→20:22)
[2020-01-29 06:30] LABS: Bedside Glucose 173 mg/dL (70-110)
[2020-01-29 07:44] LABS: Absolute Lymphocyte Count 2.31 X10^3/uL (0.83-4.51); Absolute Neutrophil Count 5.2 X10^3/uL (2.0-7.7); Basophil# 0.05 X10^3/uL; Basophil% 0.6 % (0-1); Eosinophil# 0.12 X10^3/uL; Eosinophils% 1.4 % (0-5); Hemoglobin 12.5 g/dL (12.0-15.0); Lymphocyte # 2.31 X10^3/ul (4.0); Lymphocyte % 27.2 % (19-41); Mean Corp Hgb Conc 32.9 g/dL (32-36); Mean Corpuscular Hgb 30.6 pg (27.0-32.0); Mean Corpuscular Volume 93.1 fL (81-99); Mean Platelet Vol. 10.1 fl (6.2-12.0); Monocyte# 0.73 X10^3/uL; Monocyte% 8.6 % (0-10); NRBC Flagged by Analyzer 0 % (0-5); Neutrophil # 5.18 X10^3/uL (2.7-7.7); Neutrophil % 61.1 % (47-70); Platelet Count 305 K/mm3 (150-450); RBC Distribution Width CV 12.5 % (11.6-14.6); RBC Distribution Width SD 42.3 fl (35.1-43.9); Red Blood Count 4.08 M/mm3 (4.2-5.4); White Blood Count 8.5 K/mm3 (4.4-11.0)
[2020-01-29 08:17] LABS: Anion Gap 5 (5-15); BUN 28 mg/dL (7-18); BUN/Creat Ratio 26.2 RATIO (10-20); Calcium,Total 8.7 mg/dL (8.5-10.1); Chloride 105 mmol/L (98-107); Creatinine, Serum 1.07 mg/dL (0.55-1.02); EST Glomerular Filtration Rate 55 mL/min (>60); Est Glom Filt Rate - Afr Amer 66 mL/min (>60); Estimated Creatinine Clearance 52.88 ml/min; Glucose 174 mg/dL (74-106); Potassium 3.9 mmol/L (3.5-5.1); Sodium Level 137 mmol/L (136-145)
[2020-01-29] MEDS: Insulin Lispro 100 UNIT/ML INSULN.PEN 10 UNIT SC ×3 (08:56→17:09)
[2020-01-29] MEDS: Insulin Human 75/25 Kwickpen 70 UNIT SC (08:57)
[2020-01-29] MEDS: glipiZIDE XL 5 MG Tablet 10 MG PO (08:58)
[2020-01-29] MEDS: Multivitamins,Therapeutic Tablet 1 TABLET PO (08:58)
[2020-01-29 10:00] VITALS: RESP 16
[2020-01-29 10:51] LABS: Bedside Glucose 252 mg/dL (70-110)
[2020-01-29 12:46] LABS: Bedside Glucose 154 mg/dL (70-110)
[2020-01-29 12:46] LABS: Bedside Glucose 174 mg/dL (70-110)
[2020-01-29 13:53] VITALS: BP 126/76; PULSE 74; RESP 16; TEMP 36.8; O2SAT 98
[2020-01-29 16:31] LABS: Bedside Glucose 128 mg/dL (70-110)
[2020-01-29 17:09] VITALS: PULSE 74
[2020-01-29] MEDS: MELATONIN 10 MG TABLET PO (20:21)
[2020-01-29] MEDS: ARIPiprazole 10 MG Tablet PO (20:21)
[2020-01-29] MEDS: Gabapentin 300 MG Capsule PO (20:21)
[2020-01-29] MEDS: Donepezil HCl 5 MG Tablet PO (20:21)
[2020-01-29] MEDS: Atorvastatin Calcium 40 MG Tablet PO (20:21)
[2020-01-29 21:36] LABS: Bedside Glucose 146 mg/dL (70-110)
[2020-01-29] MEDS: Acetaminophen 500 MG Tablet 1000 MG PO (22:39)
[2020-01-30 05:37] VITALS: BP 98/52; PULSE 62; RESP 16; TEMP 36.4; O2SAT 98
[2020-01-30] MEDS: Glucerna Shake 120 ML LIQUID PO ×4 (05:41→20:33)
[2020-01-30] MEDS: Polyethylene Glycol 3350 17 GM PACKET PO (05:41)
[2020-01-30 05:42] VITALS: PULSE 62
[2020-01-30] MEDS: Metoprolol Tartrate 50 MG Tablet PO ×2 (05:42→17:10)
[2020-01-30] MEDS: Cephalexin 500 MG Capsule PO ×2 (05:42→17:10)
[2020-01-30] MEDS: Doxycycline 100 MG CAPSULE PO ×2 (05:42→17:10)
[2020-01-30] MEDS: Senna/Docusate Sodium 1 Tablet PO (05:42)
[2020-01-30] MEDS: Pantoprazole Sodium 20 MG Tablet PO (05:42)
[2020-01-30] MEDS: DULoxetine Hcl 60 MG Capsule PO (05:43)
[2020-01-30] MEDS: Empagliflozin 25 MG Tablet PO (05:43)
[2020-01-30] MEDS: Loratadine 10 MG Tablet PO (05:43)
[2020-01-30] MEDS: Aspirin 81 MG TAB.CHEW PO ×2 (05:43→17:10)
[2020-01-30] MEDS: Menthol/Lanolin/Calamine/Znox 113 GM Tube 1 APPLIC TOPICAL ×2 (05:43→20:34)
[2020-01-30] MEDS: Nystatin Powder 15gm Bottle 1 APPLIC TOPICAL ×2 (05:43→20:34)
[2020-01-30] MEDS: Losartan Potassium 25 MG Tablet 12.5 MG PO (05:43)
[2020-01-30 06:15] LABS: Bedside Glucose 161 mg/dL (70-110)
[2020-01-30] MEDS: Insulin Human 75/25 Kwickpen 70 UNIT SC (08:35)
[2020-01-30] MEDS: Insulin Lispro 100 UNIT/ML INSULN.PEN 10 UNIT SC ×3 (08:36→17:09)
[2020-01-30] MEDS: glipiZIDE XL 5 MG Tablet 10 MG PO (08:40)
[2020-01-30] MEDS: Multivitamins,Therapeutic Tablet 1 TABLET PO (08:40)
[2020-01-30] MEDS: oxyCODONE 5 MG Tablet PO ×2 (10:02→16:07)
[2020-01-30 10:56] LABS: Bedside Glucose 252 mg/dL (70-110)
[2020-01-30 14:21] VITALS: BP 114/62; PULSE 77; RESP 16; TEMP 36.2; O2SAT 93
[2020-01-30 16:46] LABS: Bedside Glucose 159 mg/dL (70-110)
[2020-01-30 17:10] VITALS: PULSE 77
[2020-01-30] MEDS: Acetaminophen 500 MG Tablet 1000 MG PO (20:33)
[2020-01-30] MEDS: ARIPiprazole 10 MG Tablet PO (20:33)
[2020-01-30] MEDS: Donepezil HCl 5 MG Tablet PO (20:33)
[2020-01-30] MEDS: MELATONIN 10 MG TABLET PO (20:33)
[2020-01-30] MEDS: Atorvastatin Calcium 40 MG Tablet PO (20:34)
[2020-01-30] MEDS: Gabapentin 300 MG Capsule PO (20:34)
[2020-01-30 21:46] LABS: Bedside Glucose 171 mg/dL (70-110)
[2020-01-31 04:28] VITALS: BP 109/54; PULSE 86; RESP 18; TEMP 35.8; O2SAT 95
[2020-01-31] MEDS: Glucerna Shake 120 ML LIQUID PO ×4 (04:31→21:14)
[2020-01-31] MEDS: Polyethylene Glycol 3350 17 GM PACKET PO (04:31)
[2020-01-31 04:32] VITALS: PULSE 86
[2020-01-31] MEDS: Losartan Potassium 25 MG Tablet 12.5 MG PO (04:32)
[2020-01-31] MEDS: Cephalexin 500 MG Capsule PO ×2 (04:32→17:28)
[2020-01-31] MEDS: Doxycycline 100 MG CAPSULE PO ×2 (04:32→17:28)
[2020-01-31] MEDS: Metoprolol Tartrate 50 MG Tablet PO ×2 (04:32→17:27)
[2020-01-31] MEDS: Senna/Docusate Sodium 1 Tablet PO ×2 (04:32→17:28)
[2020-01-31] MEDS: Empagliflozin 25 MG Tablet PO (04:32)
[2020-01-31] MEDS: Pantoprazole Sodium 20 MG Tablet PO (04:32)
[2020-01-31] MEDS: DULoxetine Hcl 60 MG Capsule PO (04:32)
[2020-01-31] MEDS: Loratadine 10 MG Tablet PO (04:33)
[2020-01-31] MEDS: Aspirin 81 MG TAB.CHEW PO ×2 (04:33→17:28)
[2020-01-31] MEDS: Menthol/Lanolin/Calamine/Znox 113 GM Tube 1 APPLIC TOPICAL ×2 (04:35→21:16)
[2020-01-31] MEDS: Nystatin Powder 15gm Bottle 1 APPLIC TOPICAL ×2 (04:36→21:16)
[2020-01-31 06:21] LABS: Bedside Glucose 242 mg/dL (70-110)
[2020-01-31] MEDS: Multivitamins,Therapeutic Tablet 1 TABLET PO (07:58)
[2020-01-31] MEDS: glipiZIDE XL 5 MG Tablet 10 MG PO (07:58)
[2020-01-31] MEDS: Insulin Lispro 100 UNIT/ML INSULN.PEN 10 UNIT SC ×3 (07:59→17:30)
[2020-01-31] MEDS: Insulin Human 75/25 Kwickpen 70 UNIT SC (08:01)
[2020-01-31] MEDS: oxyCODONE 5 MG Tablet PO ×2 (11:02→17:25)
[2020-01-31 11:20] LABS: Bedside Glucose 178 mg/dL (70-110)
--- NOTE | 2020-01-31 11:27 | CASEMGMT ---
Social Work Received patient's Medicaid Pending #[id number]. Provided to [facility]. [facility] stated family cannot transport pt at [place]. Inquired if their transportation van can assist. Awaiting outcome. Will continue to follow. CHRISTIAN JasmineW
--- NOTE | 2020-01-31 11:37 | NURSING ---
nicotine patch verified to left delt.
[2020-01-31 12:50] VITALS: PULSE 70; RESP 18; O2SAT 70
[2020-01-31 13:56] VITALS: BP 104/77; PULSE 70; RESP 16; TEMP 36.7; O2SAT 98
[2020-01-31 16:55] LABS: Bedside Glucose 211 mg/dL (70-110)
[2020-01-31 17:27] VITALS: BP 104/77; PULSE 70
--- NOTE | 2020-01-31 20:34 | PCM.CONS.GEN ---
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 Patient states that due to her surgery she isn't able to reach her toes and her nails have become elongated and painful. Patient would like them trimmed so as to not impede her therapy. [] Past Medical History Past Medical History (Chronic Problems): Chronic Problems (Last Reviewed 01/25/20 @ 08:[address] Jose Juan Cantu MD) Diabetes mellitus (Chronic) Hypertension (Chronic) Coronary artery disease (Chronic) Atrial fibrillation (Chronic) Muscle spasm (Chronic) Major depression (Chronic) Cough (Chronic) Allergic rhinitis (Chronic) Diabetic polyneuropathy (Chronic) GERD (gastroesophageal reflux disease) (Chronic) Tobacco abuse (Chronic) Back pain (Chronic) Paroxysmal atrial flutter (Chronic) Depression with anxiety (Chronic) CVA (cerebral vascular accident) (Chronic) Stage 3 chronic kidney disease due to type 2 diabetes mellitus (Chronic) Polyneuropathy due to type 2 diabetes mellitus (Chronic) Hyperlipidemia (Chronic) Essential (primary) hypertension (Chronic) History of coronary artery stent placement (Chronic 04/06/11) BMS to the LCX w/ Itnegrity 4 x 15 mm 04/06/2011 Type 2 diabetes mellitus (Chronic) Atherosclerotic heart disease of [place] coronary artery without angina pectoris (Chronic) BMS to the LCX w/ Itnegrity 4 x 15 mm 04/06/2011 Ventricular septal defect (Chronic) Paroxysmal atrial fibrillation (Chronic) Medical History: Medical History (Last Reviewed 01/25/20 @ 08:[address] Jose Juan Cantu MD) Hyperlipidemia (Chronic) E78.5 Essential (primary) hypertension (Chronic) I10 Type 2 diabetes mellitus (Chronic) E11.9 Atherosclerotic heart disease of [place] coronary artery without angina pectoris (Chronic) I25.10 BMS to the LCX w/ Itnegrity 4 x 15 mm 04/06/2011 Ventricular septal defect (Chronic) Q21.0 Paroxysmal atrial fibrillation (Chronic) I48.0 History of stroke Z86.73 Seasonal allergies J30.2 Depression F32.9 History of ischemic multifocal multiple vascular territories stroke Z86.73 Obesity E66.9 Allergies No Known Allergies Allergy (Verified 01/20/20 11:25) Home Medications: Ambulatory Orders Medication Instructions Recorded Aspirin [Aspirin EC] 81 mg PO DAILY 12/26/17 Glipizide [Glipizide ER] 10 mg PO DAILY 03/02/19 Metoprolol Tartrate [Lopressor 50 mg PO BID 03/02/19 (beta guzman)] Multivitamin with Folic Acid [[facility] 400 mcg PO DAILY 03/02/19 One Daily Essential Tablet] duloxetine 30 mg capsule,delayed 60 mg PO DAILY #90 cap 07/07/19 release benzonatate 100 mg capsule 100 mg PO TID PRN #30 cap 12/07/19 Apixaban [Eliquis] 5 mg PO BID 01/11/20 Aripiprazole 10 mg PO DAILY 01/11/20 Atorvastatin Calcium [Lipitor] 40 mg PO QHS 01/11/20 Cetirizine HCl 10 mg PO DAILY 01/11/20 Empagliflozin [Jardiance] 25 mg PO DAILY 01/11/20 Gabapentin 300 mg PO QHS 01/11/20 Insulin Aspart Prot/Insuln Asp 70 unit SUBCUT DAILY 01/11/20 [Insulin Aspart Prot-Insuln Asp] Omeprazole 20 mg PO DAILY 01/11/20 Senna/Docusate Sodium [Senokot-S] 2 tab PO BID PRN PRN #1 tab 01/14/20 donepezil 5 mg tablet 5 mg PO QHS #30 tab 01/20/20 Acetaminophen [Tylenol] 1,000 mg PO Q6H PRN PRN tab 01/24/20 Donepezil HCl [Aricept] 5 mg PO QHS tab 01/24/20 Glucagon 1 mg IM .X1 PRN syringe 01/24/20 Glucerna Shake 120 ml PO 4X/DAY liquid 01/24/20 Insulin Lispro [Humalog KwikPen] 10 unit SUBCUT TIDCM insuln.pen 01/24/20 Losartan Potassium [Cozaar] 12.5 mg PO DAILY tab 01/24/20 Melatonin 10 mg PO QHS tab 01/24/20 Menthol/Lanolin/Calamine/Znox 1 applic TOPICAL 0600,2200 tube 01/24/20 [Calmoseptine Ointment] Nicotine [Nicoderm] 14 mg TRANSDERM. DAILY patch 01/24/20 Nystatin Powder [Mycostatin Powder] 1 applic TOPICAL 0600,2200 bottle 01/24/20 Oxycodone [Oxyir] 5 mg PO Q6H PRN PRN 7 Days #28 tab 01/24/20 Polyethylene Glycol 3350 [Miralax] 17 gm PO DAILY packet 01/24/20 Senna/Docusate Sodium [Senokot-S] 1 tab PO BID tab 01/24/20 Surgical History: Surgical History (Last Reviewed 01/25/20 @ 08:[address] Jose Juan Cantu MD) History of coronary artery stent placement (Chronic) Onset Date: 04/06/11 Z95.5 BMS to the LCX w/ Itnegrity 4 x 15 mm 04/06/2011 History of open heart surgery Z98.890 Hx of section Z98.891 History of hysterectomy Z90.710 History of left heart catheterization Onset Date: 04/03/11 Z98.890 Hx of cholecystectomy Z90.49 Surgical History: angioplasty - Cardiac stent., cholecystectomy, coronary bypass surgery, hysterectomy, total hip arthroplasty - Right direct anterior., - - . 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 Jose Juan Cantu MD) Mother Ovarian cancer Father Hypertension COPD (chronic obstructive pulmonary disease) Heart disease CVA (cerebral vascular accident) Sister Multiple sclerosis Cancer Sister Brain tumor Heart disease Brother A-fib History Items: No pertinent history Review of Systems Constitutional: Denies: Chills, Fever Cardiovascular: Denies: Chest Pain Respiratory: Denies: Shortness of Breath Musculoskeletal: Reports: Foot Pain - toe pain Neurological: Denies: Numbness, Tingling Patient Problems: Active and Suspected Problems (Last Reviewed 01/25/20 @ 08:[address] Jose Juan Cantu MD) Debility (Acute) Closed right hip fracture (Acute) Pain in toe (Acute) - Physical Exam Vitals/I&O's: Vital Signs Temp Pulse Resp BP Pulse Ox 98.1 F 70 16 104/77 98 01/31/20 13:56 01/31/20 17:27 01/31/20 13:56 01/31/20 17:27 01/31/20 13:56 Oxygen Flow Rate (L/min) 2 Oxygen Delivery Method Room Air Weight: 82.299 kg Body Mass Index (BMI) 28.3 Finger Stick Blood Glucose 132 Intake and Output for Last 24 Hours 01/29/20 01/30/20 01/31/20 23:59 23:59 23:59 Intake Total 850 / 850 480 / 480 480 / 480 Balance 850 / 850 480 / 480 480 / 480 General: Alert, Oriented x3 HEENT: Atraumatic Extremities: No edema, Capillary Refill Less than 3 Seconds, Peripheral Pulses Normal Skin: No rashes, No breakdown, - - toenails 1-5 bilateral are painted red with underlying discoloration, elongated, thickened, dystrophic, subungual debris, painful to palpation Musculoskeletal: Tenderness - to toenails, - - unable to assess muscle strength and ROM due to patient in pain from femur fracture surgery and unwilling to leave position Neurological: Neuro grossly intact, Sensory exam intact to light touch and pain Psych/Mental Status: Normal Affect, Appropriate Laboratory Results 01/30/20 21:39: POC Glucose 171 H 01/31/20 06:11: POC Glucose 242 H 01/31/20 08:05: COVID-19 (PAPI) Not Detected 01/31/20 11:05: POC Glucose 178 H 01/31/20 16:48: POC Glucose 211 H Current Medications Acetaminophen (Tylenol) 1,000 mg PO Q6H PRN PRN PRN Reason: Pain Score 1-3/10 Last Admin: 01/30/20 20:33 Dose: 1,000 mg Documented by: Aripiprazole (Abilify) 10 mg PO QHS LATHA Last Admin: 01/30/20 20:33 Dose: 10 mg Documented by: Aspirin (Aspirin, Baby) 81 mg PO BID LATHA Stop: 02/10/20 23:00 Last Admin: 01/31/20 17:28 Dose: 81 mg Documented by: Aspirin (Aspirin, Baby) 81 mg PO DAILY@0800 [facility] Atorvastatin Calcium (Lipitor) 40 mg PO QHS [facility] Last Admin: 01/30/20 20:34 Dose: 40 mg Documented by: Benzonatate (Tessalon Perle) 100 mg PO TID PRN PRN PRN Reason: cough Bisacodyl (Dulcolax) 10 mg RECTAL DAILY PRN PRN Reason: Constipation Calamine/Phenol (Calmoseptine Ointment) 1 applic TOPICAL 0600,2200 [facility]; Protocol Last Admin: 01/31/20 04:35 Dose: 1 applicatio Documented by: Dextrose (D50w Syringe) 0 gm IV X1 PRN; Protocol PRN Reason: Hypoglycemia Donepezil HCl (Aricept) 5 mg PO QHS [facility] Stop: 02/25/20 22:01 Last Admin: 01/30/20 20:33 Dose: 5 mg Documented by: Donepezil HCl (Aricept) 10 mg PO QHS [facility] Duloxetine HCl (Cymbalta) 60 mg PO DAILY [facility] Last Admin: 01/31/20 04:32 Dose: 60 mg Documented by: Empagliflozin (Jardiance) 25 mg PO DAILY [facility] Last Admin: 01/31/20 04:32 Dose: 25 mg Documented by: Gabapentin (Neurontin) 300 mg PO QHS [facility] Last Admin: 01/30/20 20:34 Dose: 300 mg Documented by: Glipizide (Glucotrol Xl) 10 mg PO DAILY@0800 [facility] Last Admin: 01/31/20 07:58 Dose: 10 mg Documented by: Glucagon () 1 mg IM .X1 PRN PRN Reason: Hypoglycemia Insulin Human Lispro (Humalog Kwikpen (Bkc)) 10 unit SC TIDCM [facility] Last Admin: 01/31/20 17:30 Dose: 10 u Documented by: Insulin Lispro Protam/Lispro Human (Humalog Mix 75-25 Kwikpen (Bkc)) [facility] Admin: 01/31/20 08:01 Dose: 70 u Documented by: Loratadine (Claritin) 10 mg PO DAILY [facility] Last Admin: 01/31/20 04:33 Dose: 10 mg Documented by: Losartan Potassium (Cozaar) 12.5 mg PO DAILY [facility] Last Admin: 01/31/20 04:32 Dose: 12.5 mg Documented by: Melatonin (Melatonin) 10 mg PO QHS [facility] Last Admin: 01/30/20 20:33 Dose: 10 mg Documented by: Metoprolol Tartrate (Lopressor (Beta Guzman)) 50 mg PO BID [facility] Last Admin: 01/31/20 17:27 Dose: 50 mg Documented by: Multi-Ingredient Cream (Eucerin) 1 applic TOPICAL BID PRN PRN; Protocol PRN Reason: DRY SKIN Last Admin: 01/28/20 05:51 Dose: 1 applicatio Documented by: Multivitamins (Multivitamin) 1 tablet PO DAILYCM [facility] Last Admin: 01/31/20 07:58 Dose: 1 tablet Documented by: Nicotine (Nicoderm Cq (Pbkc)) 14 mg TRANSDERM. DAILY [facility] Last Admin: 01/31/20 04:31 Dose: 14 mg Documented by: Nutritional Formula (Lactose Free) (Glucerna Shake) 120 ml PO 4X/DAY [facility] Last Admin: 01/31/20 17:29 Dose: 120 ml Documented by: Nystatin (Mycostatin Powder) 1 applic TOPICAL 0600,2200 [facility]; Protocol Last Admin: 01/31/20 04:36 Dose: 1 applicatio Documented by: Oxycodone HCl (Oxyir) 5 mg PO Q6H PRN PRN PRN Reason: Pain Score 4-10/10 Last Admin: 01/31/20 17:25 Dose: 5 mg Documented by: Pantoprazole Sodium (Protonix) 20 mg PO DAILY [facility] Last Admin: 01/31/20 04:32 Dose: 20 mg Documented by: Polyethylene Glycol (Miralax) 17 gm PO DAILY [facility] Last Admin: 01/31/20 04:31 Dose: 17 gm Documented by: Senna/Docusate Sodium (Senokot-S, Yessica-Colace) 1 tablet PO BID [facility] Last Admin: 01/31/20 17:28 Dose: 1 tablet Documented by: Sodium Chloride () 10 - 40 ml IV UD PRN PRN Reason: SALINE FLUSH Assessment/Plan All Active Problems (Last Reviewed 01/25/20 @ 08:[address] Jose Juan Canut MD) Debility (Acute) Closed right hip fracture (Acute) Pain in toe (Acute) Femoral neck fracture (Acute) painful toenails left and right DM2 Patient seen and examined Reviewed condition and treatment options. I debrided toenails 1,2,3,4, and 5 bilateral, manually with nail nipper to reduce length and thickness by angling nail nippers. This was done without incident. Proper foot care was discussed and reviewed today. This was done to manage patient's pain Patient can continue physical therapy as tolerated Contact Podiatry if any further questions. Can follow up at [facility] for any needed continued care.
[2020-01-31] MEDS: ARIPiprazole 10 MG Tablet PO (21:14)
[2020-01-31] MEDS: Donepezil HCl 5 MG Tablet PO (21:14)
[2020-01-31] MEDS: Gabapentin 300 MG Capsule PO (21:14)
[2020-01-31] MEDS: MELATONIN 10 MG TABLET PO (21:15)
[2020-01-31] MEDS: Atorvastatin Calcium 40 MG Tablet PO (21:15)
[2020-01-31 21:31] LABS: Bedside Glucose 195 mg/dL (70-110)
[2020-02-01] MEDS: oxyCODONE 5 MG Tablet PO ×2 (01:58→08:06)
[2020-02-01 04:00] VITALS: BP 107/54; PULSE 67; RESP 14; TEMP 35.9; O2SAT 98
[2020-02-01 05:02] VITALS: BP 125/73; PULSE 76
[2020-02-01] MEDS: Pantoprazole Sodium 20 MG Tablet PO (05:02)
[2020-02-01] MEDS: Metoprolol Tartrate 50 MG Tablet PO ×2 (05:02→18:18)
[2020-02-01] MEDS: Loratadine 10 MG Tablet PO (05:02)
[2020-02-01] MEDS: Senna/Docusate Sodium 1 Tablet PO ×2 (05:02→18:19)
[2020-02-01] MEDS: Losartan Potassium 25 MG Tablet 12.5 MG PO (05:02)
[2020-02-01] MEDS: Empagliflozin 25 MG Tablet PO (05:02)
[2020-02-01] MEDS: DULoxetine Hcl 60 MG Capsule PO (05:02)
[2020-02-01] MEDS: Aspirin 81 MG TAB.CHEW PO ×2 (05:02→18:17)
[2020-02-01] MEDS: Glucerna Shake 120 ML LIQUID PO ×4 (05:03→22:32)
[2020-02-01] MEDS: Polyethylene Glycol 3350 17 GM PACKET PO (05:04)
[2020-02-01] MEDS: Menthol/Lanolin/Calamine/Znox 113 GM Tube 1 APPLIC TOPICAL ×2 (05:05→22:26)
[2020-02-01] MEDS: Nystatin Powder 15gm Bottle 1 APPLIC TOPICAL ×2 (05:06→22:26)
--- NOTE | 2020-02-01 05:08 | NURSING ---
New nicotine patch placed on Right deltoid.
[2020-02-01] MEDS: Multivitamins,Therapeutic Tablet 1 TABLET PO (08:03)
[2020-02-01] MEDS: glipiZIDE XL 5 MG Tablet 10 MG PO (08:03)
[2020-02-01] MEDS: Insulin Lispro 100 UNIT/ML INSULN.PEN 10 UNIT SC ×3 (08:04→18:17)
[2020-02-01] MEDS: Insulin Human 75/25 Kwickpen 70 UNIT SC (08:08)
[2020-02-01 09:10] LABS: Bedside Glucose 188 mg/dL (70-110)
--- NOTE | 2020-02-01 09:22 | NURSING ---
daughter given up date on pt then transferred call to speech therapy.
--- NOTE | 2020-02-01 10:20 | CASEMGMT ---
Social Work [place] is unable to transport patient. Schedule [facility] van with aide assistance - 2 pm. Dtr to garbage pick up man belongings. Faxed updated clinicals to [facility]. CHRISTIAN Jasmine
[2020-02-01] MEDS: Acetaminophen 500 MG Tablet 1000 MG PO ×2 (10:41→22:32)
[2020-02-01 10:50] LABS: Bedside Glucose 180 mg/dL (70-110)
--- NOTE | 2020-02-01 11:22 | ST ---
Pt's dtr called with questions regarding pts progress and current cognitive status. Education completed regarding pt requiring complete assistance with meds/finances. Pt's dtr reports her brother will be having pt's bills placed in his name to be able to manage for the patient. Dtr appreciative of update.
[2020-02-01 16:00] VITALS: BP 107/57; PULSE 67; RESP 14; TEMP 35.9; O2SAT 98
[2020-02-01 17:01] LABS: Bedside Glucose 160 mg/dL (70-110)
[2020-02-01 18:18] VITALS: BP 107/54; PULSE 67
[2020-02-01 21:31] LABS: Bedside Glucose 153 mg/dL (70-110)
[2020-02-01] MEDS: Donepezil HCl 5 MG Tablet PO (22:25)
[2020-02-01] MEDS: ARIPiprazole 10 MG Tablet PO (22:25)
[2020-02-01] MEDS: Atorvastatin Calcium 40 MG Tablet PO (22:26)
[2020-02-01] MEDS: MELATONIN 10 MG TABLET PO (22:26)
[2020-02-01] MEDS: Gabapentin 300 MG Capsule PO (22:27)
[2020-02-02 05:04] VITALS: BP 112/69; PULSE 67; RESP 16; TEMP 36.4; O2SAT 96
[2020-02-02] MEDS: Empagliflozin 25 MG Tablet PO (05:07)
[2020-02-02] MEDS: Aspirin 81 MG TAB.CHEW PO ×2 (05:07→17:06)
[2020-02-02] MEDS: Loratadine 10 MG Tablet PO (05:07)
[2020-02-02 05:08] VITALS: BP 112/69; PULSE 67
[2020-02-02] MEDS: Losartan Potassium 25 MG Tablet 12.5 MG PO (05:08)
[2020-02-02] MEDS: DULoxetine Hcl 60 MG Capsule PO (05:08)
[2020-02-02] MEDS: Metoprolol Tartrate 50 MG Tablet PO ×2 (05:08→17:03)
[2020-02-02] MEDS: Pantoprazole Sodium 20 MG Tablet PO (05:08)
[2020-02-02] MEDS: Nystatin Powder 15gm Bottle 1 APPLIC TOPICAL ×2 (05:17→21:16)
[2020-02-02] MEDS: Menthol/Lanolin/Calamine/Znox 113 GM Tube 1 APPLIC TOPICAL ×2 (05:18→21:15)
[2020-02-02] MEDS: Glucerna Shake 120 ML LIQUID PO ×2 (05:20→12:25)
[2020-02-02 06:26] LABS: Bedside Glucose 195 mg/dL (70-110)
[2020-02-02] MEDS: glipiZIDE XL 5 MG Tablet 10 MG PO (08:38)
[2020-02-02] MEDS: Multivitamins,Therapeutic Tablet 1 TABLET PO (08:39)
[2020-02-02] MEDS: Insulin Human 75/25 Kwickpen 70 UNIT SC (08:40)
[2020-02-02] MEDS: Insulin Lispro 100 UNIT/ML INSULN.PEN 10 UNIT SC ×3 (08:40→19:14)
[2020-02-02 11:25] LABS: Bedside Glucose 221 mg/dL (70-110)
[2020-02-02 13:40] VITALS: BP 100/51; PULSE 74; RESP 16; TEMP 36.2; O2SAT 97
[2020-02-02 16:46] LABS: Bedside Glucose 174 mg/dL (70-110)
[2020-02-02 17:03] VITALS: BP 118/62; PULSE 74
[2020-02-02] MEDS: Senna/Docusate Sodium 1 Tablet PO (17:06)
[2020-02-02] MEDS: Atorvastatin Calcium 40 MG Tablet PO (21:13)
[2020-02-02] MEDS: ARIPiprazole 10 MG Tablet PO (21:13)
[2020-02-02] MEDS: Gabapentin 300 MG Capsule PO (21:13)
[2020-02-02] MEDS: Donepezil HCl 5 MG Tablet PO (21:13)
[2020-02-02] MEDS: MELATONIN 10 MG TABLET PO (21:14)
[2020-02-02 22:21] LABS: Bedside Glucose 147 mg/dL (70-110)
[2020-02-03] MEDS: oxyCODONE 5 MG Tablet PO (02:03)
[2020-02-03 05:01] VITALS: BP 110/60; PULSE 70; RESP 18; TEMP 37; O2SAT 99
[2020-02-03 05:02] VITALS: BP 110/60; PULSE 70
[2020-02-03] MEDS: Metoprolol Tartrate 50 MG Tablet PO (05:02)
[2020-02-03] MEDS: Losartan Potassium 25 MG Tablet 12.5 MG PO (05:03)
[2020-02-03] MEDS: Empagliflozin 25 MG Tablet PO (05:03)
[2020-02-03] MEDS: Pantoprazole Sodium 20 MG Tablet PO (05:03)
[2020-02-03] MEDS: Loratadine 10 MG Tablet PO (05:03)
[2020-02-03] MEDS: Aspirin 81 MG TAB.CHEW PO (05:03)
[2020-02-03] MEDS: DULoxetine Hcl 60 MG Capsule PO (05:03)
[2020-02-03] MEDS: Menthol/Lanolin/Calamine/Znox 113 GM Tube 1 APPLIC TOPICAL (05:07)
[2020-02-03] MEDS: Nystatin Powder 15gm Bottle 1 APPLIC TOPICAL (05:07)
[2020-02-03 07:01] LABS: Bedside Glucose 243 mg/dL (70-110)
[2020-02-03] MEDS: glipiZIDE XL 5 MG Tablet 10 MG PO (08:02)
[2020-02-03] MEDS: Multivitamins,Therapeutic Tablet 1 TABLET PO (08:02)
[2020-02-03] MEDS: Insulin Human 75/25 Kwickpen 70 UNIT SC (08:03)
[2020-02-03] MEDS: Insulin Lispro 100 UNIT/ML INSULN.PEN 10 UNIT SC ×2 (08:06→11:54)
[2020-02-03] MEDS: Acetaminophen 500 MG Tablet 1000 MG PO (10:49)
[2020-02-03 10:51] LABS: Bedside Glucose 133 mg/dL (70-110)
--- NOTE | 2020-02-03 13:43 | NURSING ---
Report called to Mary nurse at [facility].
== END 2020-02-03 14:00 | disposition skilled nursing facility (03) | DRG 560 ==
PROVIDERS: Admitting Provider Family Medicine Geriatric Medicine; PCP Internal Medicine; Visit Provider Family Medicine Geriatric Medicine
DX: S72.001D Fracture of unspecified part of neck of right femur, subsequent encounter for closed fracture with routine healing (principal); N39.0 Urinary tract infection, site not specified; W19.XXXD Unspecified fall, subsequent encounter; E78.5 Hyperlipidemia, unspecified; K21.9 Gastro-esophageal reflux disease without esophagitis; E11.42 Type 2 diabetes mellitus with diabetic polyneuropathy; I25.10 Atherosclerotic heart disease of native coronary artery without angina pectoris; N18.3 Chronic kidney disease, stage 3 (moderate); I12.9 Hypertensive chronic kidney disease with stage 1 through stage 4 chronic kidney disease, or unspecified chronic kidney disease; E11.22 Type 2 diabetes mellitus with diabetic chronic kidney disease; F17.210 Nicotine dependence, cigarettes, uncomplicated; I48.0 Paroxysmal atrial fibrillation; F32.9 Major depressive disorder, single episode, unspecified; Z23 Encounter for immunization; F03.90 Unspecified dementia, unspecified severity, without behavioral disturbance, psychotic disturbance, mood disturbance, and anxiety; B96.20 Unspecified Escherichia coli [E. coli] as the cause of diseases classified elsewhere
CPT/HCPCS: 36415; 71046; 74018; 80048; 80076; 81001; 82140; 82607; 82746; 82962; 85025; 87086; 87088; 87186; 87635; 90732; 92507; 92523; 94799; 97110; 97116; 97163; 97166; 97530; 97535; 97802; 99406; G0009; U0003

== ENCOUNTER → 2020-01-26 10:03 | Outpatient (CLI) | payer MEDICARE, OTHER, SELFPAY ==
[2020-01-14 11:07] VITALS: BMI 28.3
--- NOTE | 2020-01-26 10:04 | MRI_ITS ---
STUDY: MRI BRAIN WITHOUT CONTRAST REASON FOR EXAM: Female, 64 years old. cva, dementia -- memory loss, prev stroke 2019 TECHNIQUE: Standardized multiplanar fat and water weighted pulse sequences were obtained. COMPARISON: 03/02/2019 FINDINGS: There is mild cerebral atrophy with widening of the extra-axial spaces and ventricular dilatation. Normal white matter tracts of the supratentorial brain. No change in the areas of encephalomalacia and gliosis within the left hemisphere of the cerebellum and left occipital lobe consistent with a chronic left posterior cerebral artery infarct. There is also focal gliosis within the cortex of the posterior left parietal lobe consistent with a chronic infarct. There is no evidence for recent intracranial ischemia or other cause of cytotoxic edema on diffusion weighted imaging (DWI). Normal T2* images of the brain without demonstrated susceptibility artifact. There is no demonstrated hemosiderin stain. Normal bilateral basal ganglia. Normal thalami. There is no extra-axial fluid accumulation. Normal flow voids within the major intracranial circulation suggesting patency by spin echo criteria. Normal sella turcica, pituitary gland, infundibular stalk, optic chiasm and hypothalamus. Normal tectal plate and pineal gland. Normal midbrain, alona and medulla. Normal cerebellum. Normal basal cisterns. Normal bilateral temporal bones. Normal bilateral internal auditory canals. No demonstrated orbital abnormality, within the constraints of a routine brain study. Normal visualized paranasal sinuses. Normal calvarium and skull base. Normal visualized soft tissue structures. Normal visualized upper cervical spine. MRI/Brain without Contrast IMPRESSION: Involutional changes of the brain, as described above. No acute infarct. Electronically Signed: Milan Guadalupe MD at 11:26 EDT Tel , Service support ,
== END ==
PROVIDERS: PCP Internal Medicine; Referring Provider Psychiatry & Neurology Neurology; Visit Provider Psychiatry & Neurology Neurology
DX: F03.90 Unspecified dementia, unspecified severity, without behavioral disturbance, psychotic disturbance, mood disturbance, and anxiety (principal); Z86.73 Personal history of transient ischemic attack (TIA), and cerebral infarction without residual deficits
CPT/HCPCS: 70551

== ENCOUNTER → 2020-04-28 | Outpatient (CLI) | payer MEDICARE, SELFPAY ==
[2020-03-16 09:48] VITALS: BMI 28.7
[2020-04-28 16:58] LABS: Bacteria 0 SEEN /hpf (None Seen); Mucous, Urine 0 SEEN /hpf (<or=2+); Red Blood Cells-Urine 0 SEEN /hpf (0-5)
[2020-04-28 17:27] LABS: Color, Urine Yellow (Yellow); Glucose, Dipstick 1000 mg/dl (Normal); Ketone-Dipstick Negative (Negative); Leukocyte Esterase-Dipstick 25 /ul (Negative); Nitrite-Dipstick Negative (Negative); Occult Blood-Urine Negative /ul (Negative); Protein-Dipstick Negative (Negative); Urine Bilirubin Dipstick Negative (Negative); Urine Clarity Sl. Cloudy (Clear); Urine Urobilinogen Normal (Normal)
[2020-04-28 18:30] LABS: Squamous Epithelial Cells - UA 0-5 SEEN /hpf (5-10); White Blood Cells 0-5 SEEN /hpf (0-5)
== END | disposition home or self-care (01) ==
LOC: LABSPEC 16:03
PROVIDERS: PCP Internal Medicine; Referring Provider Nurse Practitioner Family; Visit Provider Nurse Practitioner Family
DX: N39.0 Urinary tract infection, site not specified (principal)
CPT/HCPCS: 81001; 87086; 87088

== ENCOUNTER → 2020-05-15 15:18 | Outpatient (CLI) | payer MEDICARE, SELFPAY ==
[2020-05-15 14:42] VITALS: BMI 31.1
[2020-05-15 18:17] LABS: Absolute Lymphocyte Count 2.62 X10^3/uL (0.83-4.51); Basophil# 0.04 X10^3/uL; Basophil% 0.5 % (0-1); Eosinophils% 1.3 % (0-5); Hematocrit 42.7 % (37-47); Hemoglobin 14.2 g/dL (12.0-15.0); Lymphocyte # 2.62 X10^3/ul (4.0); Lymphocyte % 34.8 % (19-41); Mean Corp Hgb Conc 33.3 g/dL (32-36); Mean Corpuscular Hgb 31.1 pg (27.0-32.0); Mean Corpuscular Volume 93.6 fL (81-99); Mean Platelet Vol. 11.8 fl (6.2-12.0); Monocyte# 0.68 X10^3/uL; NRBC Flagged by Analyzer 0 % (0-5); Neutrophil # 4.02 X10^3/uL (2.7-7.7); Neutrophil % 53.6 % (47-70); Platelet Count 208 K/mm3 (150-450); RBC Distribution Width CV 12.6 % (11.6-14.6); RBC Distribution Width SD 43.3 fl (35.1-43.9); Red Blood Count 4.56 M/mm3 (4.2-5.4); White Blood Count 7.5 K/mm3 (4.4-11.0)
[2020-05-15 18:33] LABS: ALB/GLOB Ratio 0.7 RATIO (0.9-2.4); AST(SGOT) 84 U/L (15-37); Alanine Aminotransfer ALT/SGPT 172 U/L (13-56); Albumin, Serum 3.3 g/dL (3.2-5.0); Alkaline Phosphatase 142 U/L (45-117); Anion Gap 7 (5-15); BUN 29 mg/dL (7-18); BUN/Creat Ratio 27.4 RATIO (10-20); Calcium,Total 9.2 mg/dL (8.5-10.1); Chloride 101 mmol/L (98-107); Creatinine, Serum 1.06 mg/dL (0.55-1.02); EST Glomerular Filtration Rate 55 mL/min (>60); Est Glom Filt Rate - Afr Amer 67 mL/min (>60); Globulin 4.9 g/dL (2.2-4.2); Glucose 378 mg/dL (74-106); Potassium 4.5 mmol/L (3.5-5.1); Protein, Total 8.2 g/dL (6.4-8.2); Sodium Level 133 mmol/L (136-145)
== END ==
PROVIDERS: PCP Internal Medicine; Visit Provider Internal Medicine
DX: L30.9 Dermatitis, unspecified (principal); L29.9 Pruritus, unspecified
CPT/HCPCS: 36415; 80053; 84443; 85025; 86803; 87340

== ENCOUNTER → 2020-05-22 12:27 | Outpatient (CLI) | payer MEDICARE, SELFPAY ==
[2020-05-15 14:42] VITALS: BMI 31.1
[2020-05-23 09:13] LABS: Hepatitis B Surface Antigen Non-Reactive (Nonreactive); Hepatitis C Antibody Non-Reactive (Nonreactive)
== END ==
PROVIDERS: PCP Internal Medicine; Referring Provider Internal Medicine; Visit Provider Internal Medicine
DX: R74.8 Abnormal levels of other serum enzymes (principal)
CPT/HCPCS: 36415; 86803; 87340

== ENCOUNTER → 2020-06-21 11:27 | Outpatient (CLI) | payer MEDICARE, OTHER, SELFPAY ==
[2020-06-21 12:42] LABS: Vitamin B12 917 pg/mL (211-911)
[2020-06-21 12:51] LABS: Microalbumin,Random Urine 28.1 mg/L (NO RANGE EST.); Microalbumin:Creatinine Ratio 55.4 mg/g CRE (<30 mg/g CRE)
[2020-06-21 13:03] LABS: ALB/GLOB Ratio 0.9 RATIO (0.9-2.4); AST(SGOT) 39 U/L (15-37); Alanine Aminotransfer ALT/SGPT 86 U/L (13-56); Albumin, Serum 3.5 g/dL (3.2-5.0); Alkaline Phosphatase 128 U/L (45-117); Anion Gap 8 (5-15); BUN 30 mg/dL (7-18); BUN/Creat Ratio 22.2 RATIO (10-20); Calcium,Total 9.5 mg/dL (8.5-10.1); Chloride 98 mmol/L (98-107); Creatinine, Serum 1.35 mg/dL (0.55-1.02); EST Glomerular Filtration Rate 42 mL/min (>60); Est Glom Filt Rate - Afr Amer 50 mL/min (>60); Globulin 4.1 g/dL (2.2-4.2); Glucose 525 mg/dL (74-106); Potassium 4.4 mmol/L (3.5-5.1); Protein, Total 7.6 g/dL (6.4-8.2); Sodium Level 131 mmol/L (136-145)
== END ==
PROVIDERS: Psychiatry & Neurology Neurology; PCP Internal Medicine; Visit Provider Nurse Practitioner Family
DX: E11.9 Type 2 diabetes mellitus without complications (principal); R74.8 Abnormal levels of other serum enzymes; F03.90 Unspecified dementia, unspecified severity, without behavioral disturbance, psychotic disturbance, mood disturbance, and anxiety
CPT/HCPCS: 80053; 82043; 82140; 82570; 82607; 82746

== ENCOUNTER 2020-09-19 12:18 | Emergency (ER) | payer MEDICARE, OTHER, SELFPAY ==
[2020-07-14 10:34] VITALS: BMI 31.0
[2020-09-19 12:20] VITALS: BP 111/69; PULSE 76; RESP 18; TEMP 35.2; O2SAT 96; BMI 28.8
[2020-09-19] MEDS: 0.9% Normal Saline 1,000 ML 1000 ML IV (13:39)
--- NOTE | 2020-09-19 13:39 | ED.VIS.GEN ---
History of Present Illness Chief Complaint: Hyperglycemia Informant: Patient Narrative: Patient states she went to urgent care at [facility] because she thought she had a urinary tract infection. She had urinary frequency for the past week. She was not found to have an infection but did have significant glucose in her urine. Her blood sugar was found to be 525 and she was sent to the emergency room. Patient is a known diabetic and takes glipizide as well as insulin. She does not check her blood sugars at home. She states she has had increased thirst and urination for the past week. - Past Medical History (1) Atherosclerotic heart disease of [place] coronary artery without angina pectoris Status: Chronic Comment: BMS to the LCX w/ Itnegrity 4 x 15 mm 04/06/2011 (2) Atrial fibrillation Status: Chronic (3) CVA (cerebral vascular accident) Status: Chronic (4) Coronary artery disease Status: Chronic (5) Depression with anxiety Status: Chronic (6) Diabetes mellitus Status: Chronic (7) Diabetic polyneuropathy Status: Chronic (8) Essential (primary) hypertension Status: Chronic (9) GERD (gastroesophageal reflux disease) Status: Chronic (10) History of coronary artery stent placement Status: Chronic Comment: BMS to the LCX w/ Itnegrity 4 x 15 mm 04/06/2011 (11) Hyperlipidemia Status: Chronic (12) Paroxysmal atrial fibrillation Status: Chronic (13) Paroxysmal atrial flutter Status: Chronic Past Medical History - Allergies and Home Meds Allergies/Adverse Reactions: Allergies No Known Allergies Allergy (Verified 09/19/20 12:20) Primary Care Physician: Obed Scott MD [STAFF PHYSICIAN] - 1 Week Prior records reviewed: Yes Surgical History: angioplasty - Cardiac stent., cholecystectomy, coronary bypass surgery, hysterectomy, total hip arthroplasty - Right direct anterior., - - . Smoking Status: Current some day smoker - Family History Maternal Family History: Family History (Last Reviewed 07/14/20 @ 10:34 by Nakita Sebastian) Mother Ovarian cancer Father Hypertension COPD (chronic obstructive pulmonary disease) Heart disease CVA (cerebral vascular accident) Sister Multiple sclerosis Cancer Sister Brain tumor Heart disease Brother A-fib Family History: Reports: No pertinent history Review of Systems General: Denies: Chills, Fever Eyes: Denies: Visual changes - bilaterally ENT: Denies: Bilateral ear pain Cardiovascular: Denies: Chest pain Respiratory: Denies: Dyspnea, Cough Gastrointestinal: Denies: Abdominal pain, Vomiting, Diarrhea Genitourinary: Reports: Frequency. Denies: Dysuria Musculoskeletal: Denies: Swelling, Extremity Pain Neurological: Denies: Headache Endocrine: Reports: Polyuria, Polydipsia Allergy: Denies: Uticaria Physical Exam Vital Signs/Narrative: Vital Signs Temp Pulse Resp BP Pulse Ox 09/19/20 12:20 95.3 F L 76 18 111/69 96 Inital Vital Signs reviewed: Yes General: Well nourished, Well developed Head: Normocephalic ENT: Dry mucous membranes Cardiovascular: Regular rate, Regular rhythm Respiratory: No distress, CTA bilaterally Abdomen: Soft, Nontender Skin: Normal color Neurological: Alert, Oriented x3 Psychological: Normal affect Diagnostic/Tx/Re-eval Laboratory Results 09/19/20 09/19/20 09/19/20 13:40 13:40 13:40 WBC 5.7 RBC 4.52 Hgb 13.8 Hct 41.1 MCV 90.9 MCH 30.5 MCHC 33.6 RDW Std Deviation 40.9 RDW Coeff of Zakiya 12.3 Plt Count 203 MPV 11.3 Immature Gran % (Auto) 0.500 Neut % (Auto) 53.5 Lymph % (Auto) 34.4 Moffat % (Auto) 9.5 Eos % (Auto) 1.2 Baso % (Auto) 0.9 Absolute Neuts (auto) 3.0 Absolute Lymphs (auto) 1.96 Nucleated RBC % 0 Sodium 129 L Potassium 4.4 Chloride 97 L Carbon Dioxide 25.0 Anion Gap 7 BUN 26 H Creatinine 1.31 H Estim Creat Clear Calc 42.61 Est GFR (MDRD) Af Amer 52 L Est GFR (MDRD) Non-Af 43 L BUN/Creatinine Ratio 19.8 Glucose 497 H* Hemoglobin A1c Calcium 9.2 Total Bilirubin 0.40 Direct Bilirubin 0.11 AST 27 ALT 47 Alkaline Phosphatase 118 H Total Protein 7.4 Albumin 3.5 Globulin 3.9 Acetone Level NEGATIVE POC Glucose 09/19/20 09/19/20 13:40 16:28 WBC RBC Hgb Hct MCV MCH MCHC RDW Std Deviation RDW Coeff of Zakiya Plt Count MPV Immature Gran % (Auto) Neut % (Auto) Lymph % (Auto) Moffat % (Auto) Eos % (Auto) Baso % (Auto) Absolute Neuts (auto) Absolute Lymphs (auto) Nucleated RBC % Sodium Potassium Chloride Carbon Dioxide Anion Gap BUN Creatinine Estim Creat Clear Calc Est GFR (MDRD) Af Amer Est GFR (MDRD) Non-Af BUN/Creatinine Ratio Glucose Hemoglobin A1c 13.3 H Calcium Total Bilirubin Direct Bilirubin AST ALT Alkaline Phosphatase Total Protein Albumin Globulin Acetone Level POC Glucose 384 H - Medical Decision Making Patient was given 2 L of IV fluid. Electrolytes are significant for hyperglycemia. Her hemoglobin A1c is 13.3. She has no serum acetone. On review of records blood sugar has been elevated on the majority of her prior lab visits. After 2 L of IV fluid blood sugar has dropped 120 points. Patient be discharged home to continue her diabetes medications. She was encouraged to check her blood sugars twice a day and keep a journal of this for her next follow-up visit. ED Disposition - Plan for ED Patient: Disposition: Home or Assisted Living Diagnosis: Hyperglycemia Instructions: ED Diabetic Hyperglycemia Referrals: Obed Scott MD [STAFF PHYSICIAN] - 1 Week Additional Instructions: Please check your blood sugars twice a day and keep a journal for your next doctor's appointment. Your medications will likely need to be adjusted to better control your blood sugar. Please take your diabetes medications as instructed including your dose today.
[2020-09-19 13:48] LABS: Absolute Lymphocyte Count 1.96 X10^3/uL (0.83-4.51); Basophil# 0.05 X10^3/uL; Basophil% 0.9 % (0-1); Eosinophil# 0.07 X10^3/uL; Eosinophils% 1.2 % (0-5); Hematocrit 41.1 % (37-47); Hemoglobin 13.8 g/dL (12.0-15.0); Lymphocyte # 1.96 X10^3/ul (4.0); Lymphocyte % 34.4 % (19-41); Mean Corp Hgb Conc 33.6 g/dL (32-36); Mean Corpuscular Hgb 30.5 pg (27.0-32.0); Mean Corpuscular Volume 90.9 fL (81-99); Mean Platelet Vol. 11.3 fl (6.2-12.0); Monocyte# 0.54 X10^3/uL; Monocyte% 9.5 % (0-10); NRBC Flagged by Analyzer 0 % (0-5); Neutrophil # 3.04 X10^3/uL (2.7-7.7); Neutrophil % 53.5 % (47-70); Platelet Count 203 K/mm3 (150-450); RBC Distribution Width CV 12.3 % (11.6-14.6); RBC Distribution Width SD 40.9 fl (35.1-43.9); Red Blood Count 4.52 M/mm3 (4.2-5.4); White Blood Count 5.7 K/mm3 (4.4-11.0)
[2020-09-19 14:10] LABS: Hemoglobin A1c 13.3 % (3.8-5.6)
[2020-09-19 14:23] LABS: AST(SGOT) 27 U/L (15-37); Alanine Aminotransfer ALT/SGPT 47 U/L (13-56); Albumin, Serum 3.5 g/dL (3.2-5.0); Alkaline Phosphatase 118 U/L (45-117); Anion Gap 7 (5-15); BUN 26 mg/dL (7-18); BUN/Creat Ratio 19.8 RATIO (10-20); Bilirubin, Direct 0.11 mg/dL (0.00-0.30); Calcium,Total 9.2 mg/dL (8.5-10.1); Chloride 97 mmol/L (98-107); Creatinine, Serum 1.31 mg/dL (0.55-1.02); EST Glomerular Filtration Rate 43 mL/min (>60); Est Glom Filt Rate - Afr Amer 52 mL/min (>60); Estimated Creatinine Clearance 42.61 ml/min; Globulin 3.9 g/dL (2.2-4.2); Glucose 497 mg/dL (74-106); Potassium 4.4 mmol/L (3.5-5.1); Protein, Total 7.4 g/dL (6.4-8.2); Sodium Level 129 mmol/L (136-145)
[2020-09-19] MEDS: 0.9% Normal Saline 1,000 ML 999 ML IV (15:07)
[2020-09-19 15:32] VITALS: BP 137/69; PULSE 75; RESP 16; TEMP 36.5; O2SAT 98
[2020-09-19 16:35] LABS: Bedside Glucose 384 mg/dL (70-110)
== END 2020-09-19 16:53 | disposition home or self-care (01) ==
PROVIDERS: Emergency Provider Emergency Medicine; PCP Nurse Practitioner Family
DX: E11.65 Type 2 diabetes mellitus with hyperglycemia (principal); I10 Essential (primary) hypertension; E11.42 Type 2 diabetes mellitus with diabetic polyneuropathy; E78.5 Hyperlipidemia, unspecified; I25.10 Atherosclerotic heart disease of native coronary artery without angina pectoris; I48.0 Paroxysmal atrial fibrillation; F41.8 Other specified anxiety disorders; K21.9 Gastro-esophageal reflux disease without esophagitis; I48.92 Unspecified atrial flutter; Z86.73 Personal history of transient ischemic attack (TIA), and cerebral infarction without residual deficits; Z95.5 Presence of coronary angioplasty implant and graft; Z79.4 Long term (current) use of insulin; Z79.82 Long term (current) use of aspirin; Z79.01 Long term (current) use of anticoagulants; Z79.899 Other long term (current) drug therapy; F17.200 Nicotine dependence, unspecified, uncomplicated
CPT/HCPCS: 80048; 80076; 82009; 82962; 83036; 85025; 96360; 96361; 99284; J7030; A4216

== ENCOUNTER → 2020-10-20 09:08 | Outpatient (CLI) | payer MEDICARE, OTHER, SELFPAY ==
[2020-10-04 11:01] VITALS: BMI 28.8
--- NOTE | 2020-10-20 09:13 | RAD_ITS ---
STUDY: X-RAY - LUMBAR SPINE REASON FOR EXAM: Female, 65 years old. BACK PAIN TECHNIQUE: 3 view(s) of the lumbar spine were obtained. COMPARISON: None FINDINGS: Normal lumbar lordosis. There is a minimal levoscoliosis of the lumbar spine. There is a normal alignment of the vertebrae. Normal vertebral bodies and endplates. Normal disc space heights. There is atherosclerotic calcification of the abdominal aorta without a demonstrated aneurysm. RAD/Lumbar Spine 2 or 3 Views IMPRESSION: Minimal degree of levoconvex scoliosis. Electronically Signed: Steve Holloway MD at 15:15 EDT , Service support ,
== END ==
PROVIDERS: PCP Nurse Practitioner Family; Referring Provider Anesthesiology Pain Medicine; Visit Provider Anesthesiology Pain Medicine
DX: M54.9 Dorsalgia, unspecified (principal)
CPT/HCPCS: 72100

== ENCOUNTER → 2020-11-07 16:06 | Outpatient (CLI) | payer MEDICARE, SELFPAY ==
[2020-10-04 11:01] VITALS: BMI 28.8
[2020-11-07 17:28] LABS: Amphetamine Urine VISTA NEGATIVE (<1000 ng/mL); Barbiturate Urine VISTA NEGATIVE (< 200 ng/mL); Benzodiazepine Urine VISTA NEGATIVE (< 200 ng/mL); Cocaine Urine VISTA NEGATIVE (< 300 ng/mL); Ecstacy Urine VISTA NEGATIVE (< 500 ng/mL); Methadone Urine VISTA NEGATIVE (< 300 ng/mL); PCP Urine VISTA NEGATIVE (< 25 ng/mL); THC Urine VISTA NEGATIVE (< 50 ng/mL); Vista UDS pH Range 6
== END ==
PROVIDERS: PCP Nurse Practitioner Family; Visit Provider Anesthesiology Pain Medicine
DX: F11.20 Opioid dependence, uncomplicated (principal)
CPT/HCPCS: 80307

== ENCOUNTER → 2021-01-31 | Outpatient (CLI) | payer MEDICARE, OTHER, SELFPAY ==
[2021-01-31 11:27] LABS: Mucous, Urine 0 SEEN /hpf (<or=2+); Red Blood Cells-Urine 0 SEEN /hpf (0-5)
[2021-01-31 12:13] LABS: Color, Urine Yellow (Yellow); Glucose, Dipstick 1000 mg/dl (Normal); Ketone-Dipstick Negative (Negative); Leukocyte Esterase-Dipstick 25 /ul (Negative); Nitrite-Dipstick Positive (Negative); Occult Blood-Urine Negative /ul (Negative); Protein-Dipstick 15 mg/dl (Negative); Specific Gravity, Urine 1.015 (1.002-1.030); Urine Bilirubin Dipstick Negative (Negative); Urine Clarity Clear (Clear); Urine Urobilinogen Normal (Normal)
[2021-01-31 12:18] LABS: Bacteria RARE /hpf (None Seen); Squamous Epithelial Cells - UA 0-5 SEEN /hpf (5-10); White Blood Cells 0-5 SEEN /hpf (0-5)
== END | disposition home or self-care (01) ==
LOC: LABSPEC 11:26
PROVIDERS: PCP Nurse Practitioner Family; Referring Provider Physician Assistant; Visit Provider Physician Assistant
DX: M54.5 Low back pain (principal); M54.9 Dorsalgia, unspecified; R35.0 Frequency of micturition
CPT/HCPCS: 81001; 87077; 87086; 87088; 87186

== ENCOUNTER → 2021-02-16 | Outpatient (CLI) | payer MEDICARE, OTHER, SELFPAY ==
[2021-02-16 15:36] LABS: Bacteria 0 SEEN /hpf (None Seen); Mucous, Urine 0 SEEN /hpf (<or=2+); Red Blood Cells-Urine 0 SEEN /hpf (0-5); White Blood Cells 0 SEEN /hpf (0-5)
[2021-02-16 15:54] LABS: Color, Urine Yellow (Yellow); Glucose, Dipstick Normal (Normal); Ketone-Dipstick Negative (Negative); Leukocyte Esterase-Dipstick Negative /ul (Negative); Nitrite-Dipstick Negative (Negative); Occult Blood-Urine Negative /ul (Negative); Protein-Dipstick 15 mg/dl (Negative); Specific Gravity, Urine 1.005 (1.002-1.030); Urine Bilirubin Dipstick Negative (Negative); Urine Clarity Clear (Clear); Urine Urobilinogen Normal (Normal)
[2021-02-16 16:17] LABS: Squamous Epithelial Cells - UA 0-5 SEEN /hpf (5-10)
== END | disposition home or self-care (01) ==
LOC: LABSPEC 16:26
PROVIDERS: PCP Nurse Practitioner Family; Visit Provider Physician Assistant
DX: M54.5 Low back pain (principal); R35.0 Frequency of micturition
CPT/HCPCS: 81001; 87086; 87088

== ENCOUNTER → 2021-04-26 | Outpatient (CLI) | payer MEDICARE, OTHER, SELFPAY | END | disposition home or self-care (01) | LOC: LABSPEC 11:35 | PROVIDERS: PCP Nurse Practitioner Family; Referring Provider Nurse Practitioner Family; Visit Provider Nurse Practitioner Family | DX: J06.9 Acute upper respiratory infection, unspecified (principal) | CPT/HCPCS: 87635; U0005; U0003 ==

== ENCOUNTER 2021-08-15 13:48 | Outpatient (CLI) | payer MEDICARE, SELFPAY ==
[2021-08-15 15:07] LABS: Absolute Lymphocyte Count 1.96 X10^3/uL (0.83-4.51); Basophil# 0.05 X10^3/uL; Basophil% 0.5 % (0-1); Eosinophil# 0.03 X10^3/uL; Eosinophils% 0.3 % (0-5); Hematocrit 45.6 % (37-47); Hemoglobin 15.6 g/dL (12.0-15.0); Lymphocyte # 1.96 X10^3/ul (0.83-4.51); Lymphocyte % 20.1 % (19-41); Mean Corp Hgb Conc 34.2 g/dL (32-36); Mean Corpuscular Hgb 30.1 pg (27.0-32.0); Mean Platelet Vol. 11.9 fl (6.2-12.0); Monocyte# 0.65 X10^3/uL; Monocyte% 6.7 % (0-10); NRBC Flagged by Analyzer 0 % (0-5); Neutrophil # 7.01 X10^3/uL (2.7-7.7); Neutrophil % 71.9 % (47-70); Platelet Count 248 K/mm3 (150-450); RBC Distribution Width CV 12.7 % (11.6-14.6); RBC Distribution Width SD 40.9 fl (35.1-43.9); Red Blood Count 5.18 M/mm3 (4.2-5.4); White Blood Count 9.8 K/mm3 (4.4-11.0)
[2021-08-15 15:23] LABS: Vitamin D,25 Hydroxy 34.3 ng/mL
[2021-08-15 16:13] LABS: ALB/GLOB Ratio 0.9 RATIO (0.9-2.4); AST(SGOT) 27 U/L (15-37); Alanine Aminotransfer ALT/SGPT 44 U/L (13-56); Albumin, Serum 3.6 g/dL (3.2-5.0); Alkaline Phosphatase 91 U/L (45-117); Anion Gap 9 (5-15); BUN 26 mg/dL (7-18); BUN/Creat Ratio 21.3 RATIO (10-20); Calcium,Total 9.3 mg/dL (8.5-10.1); Chloride 96 mmol/L (98-107); Cholesterol 168 mg/dL (200); Creatinine, Serum 1.22 mg/dL (0.55-1.02); EST Glomerular Filtration Rate 47 mL/min (>60); Est Glom Filt Rate - Afr Amer 57 mL/min (>60); Globulin 4.1 g/dL (2.2-4.2); Glucose 507 mg/dL (74-106); High Density Lipoprotein 42 mg/dL; Potassium 4.4 mmol/L (3.5-5.1); Protein, Total 7.7 g/dL (6.4-8.2); Sodium Level 131 mmol/L (136-145); Thyroid Stim Hormone (TSH) 1.79 uIU/mL (0.358-3.74); Triglycerides 202 mg/dL; Very Low Density Lipoprotein 40 mg/dL (5-40)
== END 2021-08-15 23:59 | disposition home or self-care (01) ==
LOC: BIMLAB 13:49
PROVIDERS: Physician Assistant; PCP Nurse Practitioner Family; Referring Provider Nurse Practitioner Family; Visit Provider Nurse Practitioner Family
DX: E11.65 Type 2 diabetes mellitus with hyperglycemia (principal); I48.0 Paroxysmal atrial fibrillation; Z79.4 Long term (current) use of insulin; F41.9 Anxiety disorder, unspecified; F32.A Depression, unspecified; I10 Essential (primary) hypertension; Z72.0 Tobacco use; E55.9 Vitamin D deficiency, unspecified
CPT/HCPCS: 36415; 80053; 80061; 82306; 84443; 85025

== ENCOUNTER 2021-09-07 12:10 | Outpatient (CLI) | payer MEDICARE, SELFPAY ==
--- NOTE | 2021-09-07 13:45 | MRI_ITS ---
EXAM: MR LUMBAR SPINE WITHOUT INTRAVENOUS CONTRAST CLINICAL INDICATION: LBP, leg pain TECHNIQUE: Multiplanar and multisequence MR images of the lumbar spine without intravenous contrast. This report was created using Fair value report [employer] technology. COMPARISON: None. FINDINGS: VERTEBRAE: Moderate bilateral vertebral facet arthropathy in the lower lumbar spine. Vertebral body heights are preserved. Normal alignment. No spondylolisthesis. There is preservation of the normal lumbar lordosis. SPINAL CORD: Unremarkable. Normal position and signal intensity of the conus medullaris. SOFT TISSUES: Unremarkable. DISCS/SPINAL CANAL/NEURAL FORAMINA: L1-L2: Unremarkable. Normal disc height and morphology. Normal spinal canal and lateral recesses. Normal neuroforamina. L2-L3: Unremarkable. Normal disc height and morphology. Normal spinal canal and lateral recesses. Normal neuroforamina. L3-L4: Congenital narrowing of the canal. Mild generalized disc bulge. AP diameter of the canal measures about 7 mm consistent with moderate spinal stenosis. No foraminal stenosis or nerve root impingement. L4-L5: Congenital narrowing of the canal. Mild loss of disc height Moderate generalized disc bulge. This narrows the canal to about 6 mm consistent with moderate to severe spinal stenosis. There is neural foraminal narrowing bilaterally left greater than right with probable impingement of the L4 nerve roots left greater than right. L5-S1: Moderate disc space narrowing and mild generalized disc bulge. Slight left paracentral disc protrusion without nerve root impingement. No spinal canal or foraminal stenosis. MRI/Spine Lumbar (Routine) IMPRESSION: 1. Moderate to severe spinal stenosis L4-L5 with narrowing of the canal to 6 mm due to broad-based bulge and congenital narrowing. There is also significant bilateral neural foraminal narrowing with probable compression of the L4 nerve roots left greater than right. 2. Moderate spinal stenosis L3-L4 due to congenital narrowing of the canal and mild broad-based disc bulge. The canal is narrowed to 7 mm consistent with moderate spinal stenosis. No specific nerve root impingement. 3. Moderate disc space narrowing and and mild generalized disc bulge with a slight left paracentral disc protrusion. No definite nerve root impingement. Electronically Signed: Aba Dahl MD at 4:20 EDT ,
== END 2021-09-07 23:59 | disposition home or self-care (01) ==
LOC: MRI 12:11
PROVIDERS: PCP Nurse Practitioner Family; Visit Provider Anesthesiology Pain Medicine
DX: M51.37 Other intervertebral disc degeneration, lumbosacral region (principal)
CPT/HCPCS: 72148

== ENCOUNTER 2021-10-27 17:52 | Emergency (ER) | payer MEDICARE, SELFPAY ==
[2021-10-27 17:53] VITALS: BP 152/94; PULSE 109; RESP 14; TEMP 36.8; O2SAT 97; BMI 27.3
--- NOTE | 2021-10-27 18:06 | CT_ITS ---
STUDY: CT ABDOMEN AND PELVIS WITH CONTRAST REASON FOR EXAM: Female, 66 years old. upper abd pain, vomiting RADIATION DOSAGE (If Supplied By Facility): CTDIvol = ( 14.30 ) mGy, DLP = ( 895.82 ) mGycm TECHNIQUE: Transaxial images were obtained from the dome of the diaphragm to the symphysis pubis without oral contrast. IV 75mL Isovue-370 was administered. Sagittal and coronal images were reconstructed. Individualized dose optimization techniques were used for this CT. COMPARISON: None. FINDINGS: The visualized lung bases are unremarkable. The visualized portions of the heart are within normal limits. Normal liver. There is non-visualization of the gallbladder, which may be secondary to either contraction or a prior cholecystectomy. Normal spleen. Normal pancreas. Normal bilateral adrenal glands. There is moderate cortical atrophy of the right kidney, consistent with chronic medical renal disease. Normal left kidney. Normal visualized stomach. Normal small intestine. Suture line in the descending colon. The appendix is visualized and appears normal. There is diffuse atherosclerotic calcification of the abdominal aorta, without a demonstrated aneurysm. Normal inferior vena cava. Normal retroperitoneum. Normal urinary bladder. Status post bilateral tubal ligation. Normal abdominal wall. Status post right hip arthroplasty which produces streak artifact obscures the pelvis. CT/Abdomen/Pelvis W IV Cont ONLY IMPRESSION: No acute abnormality. Electronically Signed: Milan Guadalupe MD at 19:49 EDT ,
[2021-10-27] MEDS: Ondansetron 4 MG/2 ML Vial IV (18:25)
[2021-10-27] MEDS: Morphine 4 MG/ML Syringe IV (18:25)
[2021-10-27] MEDS: 0.9% Normal Saline 1,000 ML 1000 ML IV (18:25)
[2021-10-27 18:33] LABS: Absolute Lymphocyte Count 2.22 X10^3/uL (0.83-4.51); Absolute Neutrophil Count 7.9 X10^3/uL (2.0-7.7); Basophil# 0.04 X10^3/uL; Basophil% 0.4 % (0-1); Eosinophil# 0.03 X10^3/uL; Eosinophils% 0.3 % (0-5); Hemoglobin 15.4 g/dL (12.0-15.0); Lymphocyte # 2.22 X10^3/ul (0.83-4.51); Lymphocyte % 20.1 % (19-41); Mean Corpuscular Hgb 30.9 pg (27.0-32.0); Mean Corpuscular Volume 88.2 fL (81-99); Mean Platelet Vol. 10.6 fl (6.2-12.0); Monocyte# 0.84 X10^3/uL; Monocyte% 7.6 % (0-10); NRBC Flagged by Analyzer 0 % (0-5); Neutrophil # 7.87 X10^3/uL (2.7-7.7); Platelet Count 264 K/mm3 (150-450); RBC Distribution Width CV 12.9 % (11.6-14.6); RBC Distribution Width SD 41.8 fl (35.1-43.9); Red Blood Count 4.99 M/mm3 (4.2-5.4); White Blood Count 11.1 K/mm3 (4.4-11.0)
[2021-10-27 18:52] LABS: ALB/GLOB Ratio 0.9 RATIO (0.9-2.4); AST(SGOT) 18 U/L (15-37); Alanine Aminotransfer ALT/SGPT 40 U/L (13-56); Albumin, Serum 3.4 g/dL (3.2-5.0); Alkaline Phosphatase 71 U/L (45-117); Anion Gap 7 (5-15); BUN 17 mg/dL (7-18); BUN/Creat Ratio 17.6 RATIO (10-20); Calcium,Total 9.4 mg/dL (8.5-10.1); Chloride 100 mmol/L (98-107); Creatinine, Serum 0.96 mg/dL (0.55-1.02); EST Glomerular Filtration Rate 61 mL/min (>60); Est Glom Filt Rate - Afr Amer 74 mL/min (>60); Estimated Creatinine Clearance 57.36 ml/min; Globulin 3.7 g/dL (2.2-4.2); Glucose 353 mg/dL (74-106); Lipase 34 U/L (73-393); Potassium 3.3 mmol/L (3.5-5.1); Protein, Total 7.1 g/dL (6.4-8.2); Sodium Level 133 mmol/L (136-145)
[2021-10-27 19:28] VITALS: BP 162/82; PULSE 83; RESP 16; O2SAT 98
[2021-10-27 19:53] LABS: Mucous, Urine 0 SEEN /hpf (<or=2+); Red Blood Cells-Urine 0 SEEN /hpf (0-5)
[2021-10-27 19:55] LABS: Color, Urine Yellow (Yellow); Glucose, Dipstick 1000 mg/dl (Normal); Ketone-Dipstick Negative (Negative); Leukocyte Esterase-Dipstick Negative /ul (Negative); Nitrite-Dipstick Negative (Negative); Occult Blood-Urine 10 /ul (Negative); Protein-Dipstick 30 mg/dl (Negative); Urine Bilirubin Dipstick Negative (Negative); Urine Clarity Clear (Clear); Urine Urobilinogen Normal (Normal)
[2021-10-27 20:05] LABS: Bacteria 1+ /hpf (None Seen); Squamous Epithelial Cells - UA 0-5 SEEN /hpf (5-10); White Blood Cells 0-5 SEEN /hpf (0-5)
[2021-10-27] MEDS: Mag Hydrox/Al Hydrox/Simeth 30 ML UDC PO (21:02)
--- NOTE | 2021-10-27 21:56 | EX.ED.DYSGE1 ---
HPI History of Present Illness Chief Complaint: Abd Pain Informant: patient Onset/Context/Timing Onset: Days Context: Gradual Onset Timing: Continuous Worsened by: Nothing Relieved by: Nothing Associated Symptoms Associated Symptoms: Nausea Narrative Narrative: Patient presents for several days of upper abdominal pain. No fever or jaundice. No history of liver disease or pancreatitis. No bleeding. History of GERD. History of atrial fibrillation on anticoagulation. History of diabetes, hypertension, coronary disease. She is not having chest pain, cough, or respiratory symptoms. Prior similar symptoms: No Recent Illness/Hospitalization: No PFSH FOR[facility]LY [facility] Medical History Anxiety and depression Atherosclerotic heart disease of [place] coronary artery without angina pectoris Cerebrovascular disease Cognitive attention deficit Depression Essential (primary) hypertension History of ischemic multifocal multiple vascular territories stroke History of stroke Hyperlipidemia Insomnia Obesity Paroxysmal atrial fibrillation Seasonal allergies Type 2 diabetes mellitus Unspecified dementia without behavioral disturbance URI (upper respiratory infection) Ventricular septal defect Home Medications aspirin 81 mg PO DAILY 12/26/17 [History Last Taken 01/10/20] multivitamin with folic acid 400 mcg PO DAILY 03/02/19 [History Last Taken Unknown] walker #1 ea 02/22/20 [Rx Last Taken Unknown] pen needle, diabetic 31 gauge x 5/16 #100 ea 02/25/20 [Rx Last Taken Unknown] pen needle, diabetic 32 gauge x 5/32 #200 ea 02/25/20 [Rx Last Taken Unknown] levocetirizine 5 mg tablet 5 mg PO DAILY PRN #90 tab 06/21/20 [Rx Last Taken Unknown] ibuprofen 400 mg tablet 400 mg PO Q8H PRN 06/22/20 [History Last Taken Unknown] diphenhydramine HCl 25 mg capsule 25 mg PO TID PRN #30 cap 09/21/20 [Rx Last Taken Unknown] insulin aspar prot-insulin aspart 100 unit/mL (70-30) subcutaneous pen 55 unit SUBCUT BID #33 ml 10/04/20 [Rx Last Taken Unknown] mirabegron 50 mg tablet,extended release 24 hr 50 mg PO DAILY tab 10/31/20 [History Last Taken Unknown] trazodone 50 mg tablet See Rx Instructions .ROUTE .COMPLEX #30 tab 01/15/21 [Rx Last Taken Unknown] back brace #1 ea 02/16/21 [Rx Last Taken Unknown] omeprazole 20 mg capsule,delayed release 20 mg PO DAILY #90 cap 02/16/21 [Rx Last Taken Unknown] apixaban 5 mg tablet 5 mg PO BID #180 tab 03/30/21 [Rx Last Taken Unknown] atorvastatin 40 mg tablet 40 mg PO QHS #90 tablet 04/26/21 [Rx Last Taken Unknown] memantine 10 mg tablet 10 mg PO BID #60 tab 04/30/21 [Rx Last Taken Unknown] Tresiba FlexTouch U-100 100 unit/mL (3 mL) subcutaneous pen 35 unit SUBCUT DAILY #15 ml NS 06/18/21 [Rx Last Taken Unknown] gabapentin 300 mg capsule 300 mg PO QHS #90 cap 06/18/21 [Rx Last Taken Unknown] lancets #200 ea 07/04/21 [Rx Last Taken Unknown] blood glucose control, low #1 ea 07/05/21 [Rx Last Taken Unknown] blood sugar diagnostic #300 ea 07/05/21 [Rx Last Taken Unknown] donepezil 10 mg tablet 10 mg PO QHS #90 tab 08/15/21 [Rx Last Taken Unknown] duloxetine 30 mg capsule,delayed release 30 mg PO DAILY #90 cap 08/15/21 [Rx Last Taken Unknown] glipizide 10 mg tablet, extended release 24 hr 10 mg PO DAILY #90 tab 08/15/21 [Rx Last Taken Unknown] losartan 25 mg tablet 12.5 mg PO DAILY #90 tab 08/15/21 [Rx Last Taken Unknown] Novolog Flexpen U-100 Insulin 100 unit/mL (3 mL) subcutaneous 12 unit SUBCUT TID #15 ml NS 09/25/21 [Rx Last Taken Unknown] sucralfate [Carafate] 1 g PO BID #60 tab 10/27/21 [Rx Last Taken Unknown] Allergy/AdvReac Type Severity Reaction Status Date / Time No Known Allergies Allergy Verified 10/27/21 17:53 Family History Mother Ovarian cancer Father , age 79 Hypertension COPD (chronic obstructive pulmonary disease) Heart disease CVA (cerebral vascular accident) Sister , age 69 Multiple sclerosis Cancer bone cancer Sister Brain tumor Heart disease Brother A-fib Surgical History History of coronary artery stent placement (04/06/11) History of hysterectomy History of left heart catheterization (04/03/11) History of open heart surgery Hx of section Hx of cholecystectomy Social History Smoking Status: Current every day smoker tobacco type: cigarettes alcohol intake: never substance use type: does not use what type of physical activity do you participate in: none ROS ROS ED Constitutional Constitutional ED: Denies chills or fever(s) Eyes Eyes: Denies change in vision ENT ENT ED: Denies ear pain Cardiovascular Cardiovascular: Denies chest pain, palpitations or racing heartbeat Respiratory/Chest Respiratory/Chest: Denies cough, dyspnea or sputum Gastrointestinal Gastrointestinal: Reports abdominal pain and nausea; Denies constipation or diarrhea Genitourinary Genitourinary ED: Denies dysuria Musculoskeletal Musculoskeletal: Denies back pain or myalgias Integumentary Denies rash Neurologic Neurologic: Denies headache(s) Psychiatric Psychiatric: Denies depression Endocrine Endocrinology: Denies polyuria Allergic/Immunologic Allergic/Immunologic ED: Denies urticaria EXAM Physical Exam Const Vital Signs: 10/27/21 17:53 10/27/21 19:28 Temperature 98.2 F Temperature Source Temporal Pulse Rate 109 H 83 Respiratory Rate 14 16 Blood Pressure 152/94 H 162/82 H Blood Pressure Mean 113 108 Pulse Ox 97 98 Oxygen Delivery Method Room Air Room Air Positive well nourished and well developed General Appearance ED: well developed HEENT Negative for trauma or tenderness Eyes EOMs intact bilaterally Neck supple Chest Wall inspection of chest normal Resp normal respiratory effort Cardio regular rate and regular rhythm GI normal to inspection, nondistended, normoactive bowel sounds, non-tender and non-distended Palpation: soft Back/Spine no CVA tenderness Extremity normal to inspection Neuro oriented x3 Sensorium / Orientation: alert Psych mental status grossly normal Skin no rashes or lesions noted MDM MDM MDM Narrative Medical decision making narrative: Patient presents for upper hemiabdomen pain with nausea. No chest pain or respiratory symptoms. History of GERD. Patient was treated with morphine and Zofran. She had minimal improvement and was later treated with a GI cocktail. Her CBC, CMP, lipase, urinalysis were all fairly unremarkable. CT abdomen pelvis performed and showed no acute abnormality. I am not sure what is causing her abdominal pain at this time. Believe she is appropriate for outpatient follow-up. She should return for any new or worsening issues right away. Otherwise follow-up with primary care. Continue taking her medications as prescribed. Disposition discharged home Impression #1 upper abdominal pain Lab Data Attestation: I reviewed the patient's lab results. Labs: Laboratory Results - last 24 hr 10/27/21 10/27/21 10/27/21 18:15 18:15 19:45 WBC 11.1 H RBC 4.99 Hgb 15.4 H Hct 44.0 MCV 88.2 MCH 30.9 MCHC 35.0 RDW Std Deviation 41.8 RDW Coeff of Zakiya 12.9 Plt Count 264 MPV 10.6 Immature Gran % (Auto) 0.600 Neut % (Auto) 71.0 H Lymph % (Auto) 20.1 Lares % (Auto) 7.6 Eos % (Auto) 0.3 Baso % (Auto) 0.4 Absolute Neuts (auto) 7.9 H Absolute Lymphs (auto) 2.22 Nucleated RBC % 0 Sodium 133 L Potassium 3.3 L Chloride 100 Carbon Dioxide 26.0 Anion Gap 7 BUN 17 Creatinine 0.96 Estim Creat Clear Calc 57.36 Est GFR (MDRD) Af Amer 74 Est GFR (MDRD) Non-Af 61 BUN/Creatinine Ratio 17.6 Glucose 353 H Calcium 9.4 Total Bilirubin 0.40 AST 18 ALT 40 Alkaline Phosphatase 71 Total Protein 7.1 Albumin 3.4 Globulin 3.7 Albumin/Globulin Ratio 0.9 Lipase 34 L Urine Color Yellow Urine Clarity Clear Urine pH 6.0 Ur Specific Heaters 1.010 Urine Protein 30 H Urine Glucose (UA) 1000 H Urine Ketones Negative Urine Occult Blood 10 H Urine Nitrite Negative Urine Bilirubin Negative Urine Urobilinogen Normal Ur Leukocyte Esterase Negative Urine RBC 0 SEEN Urine WBC 0-5 SEEN Ur Squamous Epith Cells 0-5 SEEN Urine Bacteria 1+ Urine Mucus 0 SEEN Radiography Diagnostic Testing: Clinical Impression(s) from Imaging Studies Abdomen/Pelvis CT 10/27/21 18:06 IMPRESSION: No acute abnormality. Electronically Signed: Milan Guadalupe MD at 19:49 EDT , Discharge Plan Triage Chief Complaint: Abd Pain ED Provider: Pavel Fung Dx/Rx/DC Orders Instructions: ED Abdominal Pain Unkn Cause Fem Prescriptions: New sucralfate [Carafate] 1 gram tablet 1 g PO BID Qty: 60 RF: 0 No Action Myrbetriq 50 mg tablet extended release 24 hr 50 mg PO DAILY RF: 0 levocetirizine [Xyzal] 5 mg tablet 5 mg PO DAILY PRN (Reason: allergy symptoms) Qty: 90 RF: 1 ibuprofen 400 mg tablet 400 mg PO Q8H PRNRF: 0 insulin asp prt-insulin aspart 100 unit/mL (70-30) insulin pen 55 unit subcut BID Qty: 33 RF: 5 omeprazole 20 mg capsule,delayed release(DR/EC) 20 mg PO DAILY Qty: 90 RF: 3 Tresiba FlexTouch U-100 100 unit/mL (3 mL) insulin pen 35 unit subcut DAILY Qty: 15 RF: 3 gabapentin 300 mg capsule 300 mg PO QHS Qty: 90 RF: 1 glipizide 10 mg tablet extended release 24hr 10 mg PO DAILY Qty: 90 RF: 0 duloxetine 30 mg capsule,delayed release(DR/EC) 30 mg PO DAILY Qty: 90 RF: 0 donepezil 10 mg tablet 10 mg PO QHS Qty: 90 RF: 0 losartan 25 mg tablet 12.5 mg PO DAILY Qty: 90 RF: 0 aspirin 81 MG tablet,delayed release (DR/EC) 81 mg PO DAILY RF: 0 multivitamin with folic acid 400 MCG tablet 400 mcg PO DAILY RF: 0 (DME) walker Misc See Rx Instructions .ROUTE .MEDSUPPLY Qty: 1 RF: 0 (DME) pen needle, diabetic [Easy Comfort Pen [place]] 32 gauge x 5/32 needle See Rx Instructions .ROUTE .MEDSUPPLY Qty: 200 RF: 3 (DME) pen needle, diabetic [BD Ultra-Fine Short Pen Needle] 31 gauge x 5/16 needle See Rx Instructions .ROUTE .MEDSUPPLY Qty: 100 RF: 5 diphenhydramine HCl [Benadryl] 25 mg capsule 25 mg PO TID PRN (Reason: itching) Qty: 30 RF: 1 trazodone 50 mg tablet See Rx Instructions .ROUTE .COMPLEX Qty: 30 RF: 0 (DME) back brace Misc See Rx Instructions .ROUTE .MEDSUPPLY Qty: 1 RF: 0 apixaban 5 mg tablet 5 mg PO BID Qty: 180 RF: 1 atorvastatin 40 mg tablet 40 mg PO QHS Qty: 90 RF: 1 memantine 10 mg tablet 10 mg PO BID Qty: 60 RF: 0 (DME) lancets [Accu-Chek Softclix Lancets] Misc See Rx Instructions .ROUTE .MEDSUPPLY Qty: 200 RF: 4 (DME) True Metrix Level 1 Solution See Rx Instructions .ROUTE .MEDSUPPLY Qty: 1 RF: 0 (DME) True Metrix Glucose Test Strip Strip See Rx Instructions .ROUTE .MEDSUPPLY Qty: 300 RF: 3 insulin aspart U-100 [Novolog Flexpen U-100 Insulin] 100 unit/mL (3 mL) insulin pen 12 unit subcut TID Qty: 15 RF: 3 Primary Care Provider: Rajiv Cope NP Referrals: Rajiv Cope NP, AUTHORIZATION REP-C [Primary Care Provider] - Disposition Disposition: Home, Self Care Discharge Date/Time: 10/27/21 21:12
== END 2021-10-27 21:12 | disposition home or self-care (01) ==
PROVIDERS: Emergency Provider Emergency Medicine; PCP Nurse Practitioner Family; Visit Provider Emergency Medicine
DX: R10.10 Upper abdominal pain, unspecified (principal); F03.90 Unspecified dementia, unspecified severity, without behavioral disturbance, psychotic disturbance, mood disturbance, and anxiety; I48.0 Paroxysmal atrial fibrillation; E11.9 Type 2 diabetes mellitus without complications; Z79.4 Long term (current) use of insulin; F32.A Depression, unspecified; F41.9 Anxiety disorder, unspecified; I25.10 Atherosclerotic heart disease of native coronary artery without angina pectoris; Z86.73 Personal history of transient ischemic attack (TIA), and cerebral infarction without residual deficits; I10 Essential (primary) hypertension; E78.5 Hyperlipidemia, unspecified; E66.9 Obesity, unspecified; Z79.01 Long term (current) use of anticoagulants; Z79.82 Long term (current) use of aspirin; Z79.899 Other long term (current) drug therapy; Z95.5 Presence of coronary angioplasty implant and graft; F17.210 Nicotine dependence, cigarettes, uncomplicated; K21.9 Gastro-esophageal reflux disease without esophagitis; Z68.27 Body mass index [BMI] 27.0-27.9, adult; R11.0 Nausea
CPT/HCPCS: 74177; 80053; 81001; 83690; 85025; 96361; 96374; 96375; 99283; J7030; Q9967; A4216; J2405

== ENCOUNTER → 2022-07-04 | Outpatient (CLI) | payer MEDICARE, SELFPAY ==
[2022-07-04 16:46] LABS: Absolute Lymphocyte Count 1.86 X10^3/uL (0.83-4.51); Absolute Neutrophil Count 4.3 X10^3/uL (2.0-7.7); Basophil# 0.03 X10^3/uL; Basophil% 0.4 % (0-1); Eosinophil# 0.04 X10^3/uL; Eosinophils% 0.6 % (0-5); Hematocrit 42.5 % (37-47); Hemoglobin 14.9 g/dL (12.0-15.0); Lymphocyte # 1.86 X10^3/ul (0.83-4.51); Lymphocyte % 27.6 % (19-41); Mean Corp Hgb Conc 35.1 g/dL (32-36); Mean Corpuscular Hgb 31.1 pg (27.0-32.0); Mean Corpuscular Volume 88.7 fL (81-99); Mean Platelet Vol. 10.4 fl (6.2-12.0); Monocyte# 0.52 X10^3/uL; Monocyte% 7.7 % (0-10); NRBC Flagged by Analyzer 0 % (0-5); Neutrophil # 4.28 X10^3/uL (2.7-7.7); Neutrophil % 63.6 % (47-70); Platelet Count 249 K/mm3 (150-450); RBC Distribution Width CV 12.2 % (11.6-14.6); RBC Distribution Width SD 39.8 fl (35.1-43.9); Red Blood Count 4.79 M/mm3 (4.2-5.4); White Blood Count 6.7 K/mm3 (4.4-11.0)
[2022-07-04 17:28] LABS: Microalbumin:Creatinine Ratio 835.8 mg/g CRE (<30 mg/g CRE)
[2022-07-04 17:43] LABS: ALB/GLOB Ratio 0.8 RATIO (0.9-2.4); AST(SGOT) 23 U/L (15-37); Alanine Aminotransfer ALT/SGPT 41 U/L (13-56); Albumin, Serum 3.3 g/dL (3.2-5.0); Alkaline Phosphatase 80 U/L (45-117); Anion Gap 9 (5-15); BUN 15 mg/dL (7-18); BUN/Creat Ratio 18.3 RATIO (10-20); Calcium,Total 9.1 mg/dL (8.5-10.1); Chloride 103 mmol/L (98-107); Cholesterol 145 mg/dL (200); Creatinine, Serum 0.82 mg/dL (0.55-1.02); EST Glomerular Filtration Rate 74 mL/min (>60); Est Glom Filt Rate - Afr Amer 89 mL/min (>60); Globulin 4.2 g/dL (2.2-4.2); Glucose 351 mg/dL (74-106); High Density Lipoprotein 42 mg/dL; Potassium 3.5 mmol/L (3.5-5.1); Protein, Total 7.5 g/dL (6.4-8.2); Sodium Level 140 mmol/L (136-145); Triglycerides 156 mg/dL; Very Low Density Lipoprotein 31 mg/dL (5-40)
== END | disposition home or self-care (01) ==
PROVIDERS: PCP Nurse Practitioner Family; Referring Provider Internal Medicine; Visit Provider Internal Medicine
DX: E11.22 Type 2 diabetes mellitus with diabetic chronic kidney disease (principal); Z79.4 Long term (current) use of insulin; N18.30 Chronic kidney disease, stage 3 unspecified
CPT/HCPCS: 36415; 80053; 80061; 82043; 82570; 85025

== ENCOUNTER 2022-10-01 06:28 | Day surgery (SDC) | payer MEDICARE, SELFPAY ==
[2022-10-01] VITALS (7 sets, daily range): BP systolic 87–118; BP diastolic 46–71; PULSE 71–92; RESP 16–18; TEMP 37.1–37.8; O2SAT 91–100; BMI 24.0
--- NOTE | 2022-10-01 | IMM_PTH ---
PATIENT: WINIFRED ROUSE LOC: EN U#:[id number] AGE/SX: 67/F ROOM: RE10/01/[address]: Dr. Valentín Wilson MD : 1955 BED: DIS: 10/01/2022 SPEC #: [id number] RECD: 10/02/22 11:42 STATUS: KAITLIN REQ #: [id number] MOMO: 10/01/22 00:[address]: Valentín Wilson DEPT: IMMUNOHISTOCHEMISTRY RECD BY: [address] Street ENTERED: 10/02/22 11:42 SP TYPE: IMMUNO OTHR DR: Rajiv Cope, BRAKE [employer] LATHE OPERATOR-C Tissues: A - Esophageal mucous membrane Procedures: P53 (initial) KI-67 (add) PHYSICIAN & INSTITUTION [place] [id number] SPECIMEN INFORMATION: Tissue Source: A ? Distal esophagus Clinical Info: Difficulty swallowing Specimen Number: [id number] CPT code: 57172, 73043 METHODOLOGY: Deparaffinized sections of prefer/formalin-fixed tissue or PAP/DQ stained slides are incubated with monoclonal/polyclonal antibodies/oligonucleotide probes. Localization is made via biotin free immunoperoxidase method. Appropriate controls are performed and reacted as expected. Results on target cell population are indicated in the following table: RESULTS: ANTIBODY / CLONE RESULT Block A P53 (DO-7) positive, wild type pattern Ki-67 (30-9) positive, low These tests were developed and their performance characteristics determined by [facility]. They may not have been cleared or approved by the U.S. Food and Drug Administration. The FDA has determined that such clearance or approval is not necessary. The above immunohistochemical/dualISH markers are ordered and reviewed by the Pathologist. INTERPRETATION: A. Distal esophagus, biopsy: No evidence of dysplasia. AM:armida 10/03/2022
[2022-10-01] MEDS: Lactated Ringers 1,000 ML 15 ML IV (07:10)
--- NOTE | 2022-10-01 07:14 | PCM.HP.BLA ---
History and Physical Date of Admission: 10/01/22 Intake Vital Signs ? 07/16/2307:18 Height 5 ft 8 in Weight: 163 lb 4 oz BMI 24.8 BP 114/73 Blood Pressure Location Rt brachial Position Sitting Respiration 18 Pulse 92 Pulse Source Monitor Temp 96.4 F L Temp Source Temporal Pulse Oximetry (%) 95 Oxygen Delivery Method room air Intake Visit Reasons:?Dysphagia Chief Complaint: Dysphagia Health Information Managers Required: No Accompanied by: Daughter Is patient in pain?: No Allergies No Known Allergies Allergy (Verified 07/16/22 08:19) Medications aspirin 81 mg tablet,delayed release 81 mg PO DAILY heart health 12/26/17 [History Confirmed 07/04/22] multivitamin with folic acid 400 mcg tablet 400 mcg PO DAILY vitamin 03/02/19 [History Confirmed 07/04/22] walker #1 ea 02/22/20 [Rx Confirmed 07/04/22] pen needle, diabetic 31 gauge x 5/16 (BD Ultra-Fine Short Pen Needle) #100 ea 02/25/20 [Rx Confirmed 07/04/22] levocetirizine 5 mg tablet (Xyzal) 5 mg PO DAILY PRN allergy symptoms #90 tabs 06/21/20 [Rx Confirmed 07/04/22] diphenhydramine HCl 25 mg capsule (Benadryl) 25 mg PO TID PRN itching #30 caps 09/21/20 [Rx Confirmed 07/04/22] back brace #1 ea 02/16/21 [Rx Confirmed 07/04/22] lancets (Accu-Chek Softclix Lancets) #200 ea 07/04/21 [Rx Confirmed 07/04/22] blood glucose control, low (True Metrix Level 1 solution) #1 ea 07/05/21 [Rx Confirmed 07/04/22] blood sugar diagnostic (True Metrix Glucose Test Strip) #300 ea 07/05/21 [Rx Confirmed 07/04/22] omeprazole 40 mg capsule,delayed release 40 mg PO DAILY GERD #90 caps 11/02/21 [Rx Confirmed 07/04/22] pen needle, diabetic 32 gauge x 5/32 (Easy Comfort Pen [place]) #200 ea 03/06/22 [Rx Confirmed 07/04/22] rivaroxaban 10 mg tablet (Xarelto) 10 mg PO DAILY #90 tabs 03/07/22 [Rx Confirmed 07/04/22] atorvastatin 40 mg tablet 40 mg PO QHS cholesterol? #90 tabs 06/11/22 [Rx Confirmed 07/04/22] donepezil 10 mg tablet 10 mg PO QHS #90 tabs 06/11/22 [Rx Confirmed 07/04/22] duloxetine 30 mg capsule,delayed release 30 mg PO DAILY #90 caps 06/11/22 [Rx Confirmed 07/04/22] glipizide 10 mg tablet, extended release 24 hr 10 mg PO DAILY diabetes #90 tabs 06/11/22 [Rx Confirmed 07/04/22] trazodone 50 mg tablet See Rx Instructions .Route .COMPLEX #90 tabs 06/11/22 [Rx Confirmed 07/04/22] gabapentin 300 mg capsule 300 mg PO QHS nerve pain #90 caps 06/12/22 [Rx Confirmed 07/04/22] Novolog FlexPen U-100 Insulin 100 unit/mL (3 mL) subcutaneous (insulin aspart U-100) 14 unit (0.14 mL) subcut TID 3 months #37.8 mL 07/04/22 [Rx Confirmed 07/04/22] Tresiba FlexTouch U-100 100 unit/mL (3 mL) subcutaneous pen (insulin degludec) 40 unit (0.4 mL) subcut DAILY 3 months #36 mL 07/04/22 [Rx Confirmed 07/04/22] losartan 50 mg tablet 50 mg PO DAILY #90 tabs 07/04/22 [Rx Confirmed 07/04/22] PFSH Medical History?(Updated 07/16/22 @ 13:[address] Valentín Wilson MD) Anxiety and depression Atherosclerotic heart disease of [place] coronary artery without angina pectoris Cerebrovascular disease Cognitive attention deficit Depression Difficulty swallowing Dysphagia Essential (primary) hypertension History of ischemic multifocal multiple vascular territories stroke History of stroke Hyperlipidemia Insomnia Obesity Paroxysmal atrial fibrillation Right ear pain Seasonal allergies Type 2 diabetes mellitus Unspecified dementia without behavioral disturbance URI (upper respiratory infection) Ventricular septal defect Surgical History?(Updated 07/16/22 @ 08:18 by Paty Velasco) History of coronary artery stent placement (04/06/11) History of esophagogastroduodenoscopy (EGD) History of hysterectomy History of left heart catheterization (04/03/11) History of open heart surgery Hx of section Hx of cholecystectomy Family History? Mother?? Ovarian cancerFather?? ,? age 79 Hypertension COPD (chronic obstructive pulmonary disease) Heart disease CVA (cerebral vascular accident)Sister?? ,? age 69 Multiple sclerosis Cancer ?? ? bone cancerSister?? Brain tumor Heart diseaseBrother A-fib Social History? Smoking Status:? Current every day smoker tobacco type: cigarettes alcohol intake:? never substance use type:? does not use what type of physical activity do you participate in:? none HPI HPI HPI: Patient is a 67-year-old female here with dysphagia.? She reports several years ago she had an EGD and had dilation due to stricture.? The patient reports she is having difficulty swallowing and coughing.? She is on a PPI. ROS General General: Yes weight change; No appetite, fatigue, colon cancer, breast cancer or weakness HEENT HEENT: Yes difficulty swallowing; No eye injury, eye surgery, swollen glands or hoarseness Endo Endocrine: Yes diabetes mellitus; No thyroid disease, thyroid cancer, Hair loss, heat intolerance or cold intolerance Skin Skin: No rash or changing moles Breast Breast: No left breast lump, right breast lump, nipple discharge, breast pain, abnormal mammogram, abnormal US or breast enlargement Musc Musculoskeletal: Yes back problems and arthritis; No rheumatoid arthritis, gout or joint pain Cardio Cardiovascular: Yes heart attack and heart stent; No murmur, pacemaker, heart disease, atrial fibrillation, high blood pressure, palpitations, shortness of breat with exertion or chest pain Psych Psychiatric: Yes depression and anxiety; No hearing voices Resp Respiratory: No shortness of breath, No sleep apnea, Yes cough, No COPD, No asthma, No emphysema and No wheezing Gastro Gastrointestinal: No abdominal pain, No nausea or vomiting, No diarrhea, No constipation, No blood in stool, No acid reflux, No hemorrhoids, No ulcers, No gallbladder problem and No black,tarry stools Adeel Hematologic: Yes blood thinners, No blood disorders, No bleeding, No anemia and No blood clots Neuro Neurologic: No system reviewed and no additional complaints, except as documented, No as per HPI, No abnormal gait, No abnormal hearing, No abnormal movements, No abnormal speech, No behavioral changes, No burning sensations, No confusion, No convulsions, No disequilibrium, No dizziness, No localized weakness, No frequent falls, No headache(s), No lack of coordination, No loss of vision, No memory loss, No numbness, No other visual disturbances, No radicular pain, No restless legs, No sensory deficit, No syncope, No tingling, No tremor(s), No weakness and No other (History CVA) Exam Const General: cooperative Orientation: alert and oriented x3 HENMT Head: normal to inspection Neck Neck: normal visual inspection and full ROM Chest Chest palpation & inspection: normal inspection of the chest Resp Effort & Inspection: normal respiratory effort Auscultation: clear to auscultation bilaterally Cardio Rate: regular rate Rhythm: regular rhythm GI Inspection: non-distended Palpation: soft and nontender Skin General: no rashes or lesions noted Neuro General: patient alert and patient oriented x3 Extrem General: full ROM Psych Appearance: grossly normal Mental Status: mental status grossly normal Assessment and Plan Assessment and Plan (1) Difficulty swallowing: ?Status:?Chronic ?Qualifiers: ?Dysphagia type:?esophageal phase? Qualified Code(s):?R13.19 - Other dysphagia ?Plan: Patient is having dysphagia and requires EGD for possible dilation or biopsy.? I would like her to hold her blood thinners for 3 days prior to the surgery.? I discussed EGD as well as dilation with her and the increased risk of bleeding and perforation that is associated with dilation. I explained endoscopy in detail to the patient.? I explained the risks including but not limited to stroke or heart attack with anesthesia, perforation of the GI tract, bleeding, infection.? I explained that any of these could necessitate further emergency surgery.? The patient understands and all questions were answered sufficiently.? The patient wishes to proceed with procedure. Valentín Wilson MD Pager: [facility] [address] [place] [address], [address] [place] [address] Office: I have examined the patient and the H&P has been reviewed. There are no clinical changes since date of exam.
--- NOTE | 2022-10-01 07:30 | EGD_PTH ---
PATIENT: WINIFRED ROUSE LOC: EN U#:[id number] AGE/SX: 67/F ROOM: RE10/01/[address]: Dr. Valentín Wilson MD : 1955 BED: DIS: 10/01/2022 SPEC #: [id number] RECD: 10/01/22 11:39 STATUS: KAITLIN RECheryl #: [id number] MOMO: 10/01/22 07:[address]: Valentín Wilson DEPT: SURGICAL PATHOLOGY RECD BY: Janeth Perez ENTERED: 10/01/22 12:10 SP TYPE: EGD BIOPSY OT DR: LARON Kemp Tissues: A - Esophagus, NOS B - Esophagus, NOS Procedures: Special Stain Group II Surgery Specimen Level IV Alcian Blue/PAS (control) HEADER OPERATION: EGD with biopsies (MAC) with dilation PRE-OP DIAGNOSIS: Difficulty swallowing TISSUE SUBMITTED: A ? Distal esophagus biopsy, B ? Mid esophagus biopsy MICROSCOPIC DIAGNOSIS A. Distal esophagus, biopsy: Gastroesophageal junctional mucosa with chronic inflammation. 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 No evidence of dysplasia. See comment. B. Mid esophagus, biopsy: No pathologic change. AM:armida 10/02/2022 COMMENT A. Alcian blue/PAS stain with matched control supports the above diagnosis. Immunohistochemistry ([id number]) for P53 and Ki-67 will be performed and results will be reported separately. MICROSCOPIC DESCRIPTION Slides are reviewed. GROSS DESCRIPTION A - Received in fixative is one container labeled with the patient's name and designated distal esophagus. The specimen consists of one irregular fragment of light lowe soft tissue that measures 0.5 x 0.2 x 0.1 cm. The specimen is totally submitted in one cassette. B - Received in fixative is one container labeled with the patient's name and designated mid esophagus biopsy. The specimen consists of two irregular fragments of light lowe soft tissue that in aggregate measure 0.6 x 0.6 x 0.1 cm. The specimen is totally submitted in one cassette. / AM:armida 10/01/2022 TC:5 CPT: 44406 x2, 73128
--- NOTE | 2022-10-01 07:39 | OP.EGD_ITS ---
Patient Name: Amalia Love Procedure Date: 10/01/2022 7:09 AM Date of : 1955 Age: 67 Procedure: Upper GI endoscopy Indications: Dysphagia Providers: Valentín Wilson MD Medicines: Monitored Anesthesia Care Patient Profile: This is a 67 year old female. Refer to note in patient chart for documentation of history and physical. Complications: No immediate complications. Procedure: Pre-Anesthesia Assessment: - Prior to the procedure, a History and Physical was performed, and patient medications and allergies were reviewed. The patient's tolerance of previous anesthesia was also reviewed. The risks and benefits of the procedure and the sedation options and risks were discussed with the patient. All questions were answered, and informed consent was obtained. Prior Anticoagulants: The patient has taken Xarelto (rivaroxaban), last dose was 3 days prior to procedure. After reviewing the risks and benefits, the patient was deemed in satisfactory condition to undergo the procedure. After obtaining informed consent, the endoscope was passed under direct vision. Throughout the procedure, the patient's blood pressure, pulse, and oxygen saturations were monitored continuously. The gastroscope was introduced through the mouth, and advanced to the third part of duodenum. The upper GI endoscopy was accomplished without difficulty. The patient tolerated the procedure well. Scope In: 7:30:08 AM Scope Out: 7:34:09 AM Total Procedure Duration Time 0 hours 4 minutes 1 second Findings: The stomach was normal. The examined duodenum was normal. LA Grade A (one or more mucosal breaks less than 5 mm, not extending between tops of 2 mucosal folds) esophagitis with no bleeding was found in the lower third of the esophagus. Biopsies were taken with a cold forceps for histology. Biopsies were taken with a cold forceps in the middle third of the esophagus for histology. Impression: - Normal stomach. - Normal examined duodenum. - LA Grade A reflux esophagitis. Biopsied. - Biopsies were taken with a cold forceps for histology in the middle third of the esophagus. Recommendation: - Discharge patient to home. - Resume previous diet. - Continue present medications. - Resume Xarelto (rivaroxaban) at prior dose tomorrow. - Perform ambulatory esophageal manometry at appointment to be scheduled. Procedure Code(s): --- Professional --- 73756, Esophagogastroduodenoscopy, flexible, transoral; with biopsy, single or multiple Diagnosis Code(s): --- Professional --- K21.0, Gastro-esophageal reflux disease with esophagitis R13.10, Dysphagia, unspecified CPT copyright 2017 [employer] [place] [employer]. All rights reserved. The codes documented in this report are preliminary and upon junior systems engineer review may be revised to meet current compliance requirements. Valentín Wilson MD 10/01/2022 7:39:50 AM This report has been signed electronically. Number of Addenda: 0 Note Initiated On: 10/01/2022 7:09 AM
[2022-10-01 07:40] LABS: Bedside Glucose 449 mg/dL (74-106)
--- NOTE | 2022-10-01 07:40 | OP.CCLET_ITS ---
10/01/2022 Rajiv Cope NP [address] [place] [address] [place] [address] Re : Upper GI endoscopy procedure for Amalia Love Dear Mr. Cope This procedure was performed on Saturday, October 01, 2022. My impressions and recommendations are as follows: Impressions : - Normal stomach. - Normal examined duodenum. - LA Grade A reflux esophagitis. Biopsied. - Biopsies were taken with a cold forceps for histology in the middle third of the esophagus. Recommendations : - Discharge patient to home. - Resume previous diet. - Continue present medications. - Resume Xarelto (rivaroxaban) at prior dose tomorrow. - Perform ambulatory esophageal manometry at appointment to be scheduled. My findings are described in the full procedure note, which is enclosed. If I can be of further assistance, please feel free to contact me at Doctor phone number(s): , Work: . Sincerely, Valentín Wilson MD 10/01/2022 7:39:50 AM This report has been signed electronically.
[2022-10-01] MEDS: Insulin Lispro 100 UNIT/ML INSULN.PEN SC (08:00)
[2022-10-01 08:10] LABS: Bedside Glucose 478 mg/dL (74-106)
== END 2022-10-01 08:44 | disposition home or self-care (01) ==
LOC: EN 06:49 → AC 06:50
PROVIDERS: PCP Nurse Practitioner Family; Referring Provider Nurse Practitioner Family; Visit Provider Surgery
PROC: 0DJ08ZZ Inspection of Upper Intestinal Tract, Via Natural or Artificial Opening Endoscopic (ICD-10-PCS; CPT 43235; principal; 2022-10-01 07:25)
DX: R13.10 Dysphagia, unspecified (principal); I48.0 Paroxysmal atrial fibrillation; E11.9 Type 2 diabetes mellitus without complications; K21.00 Gastro-esophageal reflux disease with esophagitis, without bleeding; Z79.82 Long term (current) use of aspirin; I25.10 Atherosclerotic heart disease of native coronary artery without angina pectoris; F32.A Depression, unspecified; I10 Essential (primary) hypertension; Z86.73 Personal history of transient ischemic attack (TIA), and cerebral infarction without residual deficits; E78.5 Hyperlipidemia, unspecified; Z95.5 Presence of coronary angioplasty implant and graft; F17.210 Nicotine dependence, cigarettes, uncomplicated
CPT/HCPCS: 43239; 82962; 88305; 88313; 88341; 88342; J7120; J2405

== ENCOUNTER 2022-10-11 10:27 | Day surgery (SDC) | payer MEDICARE, SELFPAY ==
[2022-10-11 10:49] VITALS: BP 102/60; PULSE 86; RESP 16; TEMP 36.3; O2SAT 95
== END 2022-10-11 23:59 | disposition home or self-care (01) ==
LOC: EN 10:30
PROVIDERS: PCP Nurse Practitioner Family; Referring Provider Nurse Practitioner Family; Visit Provider Surgery
PROC: F00ZJWZ Instrumental Swallowing and Oral Function Assessment using Swallowing Equipment (ICD-10-PCS; CPT 43235; principal; 2022-10-11 10:25)
DX: R13.10 Dysphagia, unspecified (principal)
CPT/HCPCS: 91010

== ENCOUNTER 2023-01-06 20:21 | Emergency (ER) | payer MEDICARE, SELFPAY ==
[2023-01-06 20:24] VITALS: BP 106/66; PULSE 89; RESP 18; TEMP 36.4; O2SAT 98
[2023-01-06 20:48] LABS: Bedside Glucose > 500 mg/dL (74-106)
[2023-01-06 21:04] LABS: Bacteria 0 SEEN /hpf (None Seen); Mucous, Urine 0 SEEN /hpf (<or=2+); Red Blood Cells-Urine 0 SEEN /hpf (0-5); White Blood Cells 0 SEEN /hpf (0-5)
[2023-01-06 21:10] LABS: Absolute Lymphocyte Count 2.39 X10^3/uL (0.83-4.51); Absolute Neutrophil Count 4.1 X10^3/uL (2.0-7.7); Basophil# 0.03 X10^3/uL; Basophil% 0.4 % (0-1); Eosinophil# 0.05 X10^3/uL; Eosinophils% 0.7 % (0-5); Hematocrit 44.7 % (37-47); Hemoglobin 15.7 g/dL (12.0-15.0); Lymphocyte # 2.39 X10^3/ul (0.83-4.51); Lymphocyte % 33.3 % (19-41); Mean Corp Hgb Conc 35.1 g/dL (32-36); Mean Corpuscular Hgb 31.3 pg (27.0-32.0); Mean Platelet Vol. 10.7 fl (6.2-12.0); Monocyte# 0.53 X10^3/uL; Monocyte% 7.4 % (0-10); NRBC Flagged by Analyzer 0 % (0-5); Neutrophil # 4.13 X10^3/uL (2.7-7.7); Neutrophil % 57.6 % (47-70); Platelet Count 200 K/mm3 (150-450); RBC Distribution Width CV 11.7 % (11.6-14.6); RBC Distribution Width SD 37.7 fl (35.1-43.9); Red Blood Count 5.02 M/mm3 (4.2-5.4); White Blood Count 7.2 K/mm3 (4.4-11.0)
[2023-01-06] MEDS: 0.9% Normal Saline 1,000 ML 999 ML IV ×2 (21:15→22:19)
[2023-01-06 21:21] LABS: Color, Urine Yellow (Yellow); Glucose, Dipstick 1000 mg/dl (Normal); Ketone-Dipstick Negative (Negative); Leukocyte Esterase-Dipstick Negative /ul (Negative); Nitrite-Dipstick Negative (Negative); Occult Blood-Urine Negative /ul (Negative); Protein-Dipstick 30 mg/dl (Negative); Urine Bilirubin Dipstick Negative (Negative); Urine Clarity Sl. Cloudy (Clear); Urine Urobilinogen Normal (Normal)
[2023-01-06 21:27] LABS: Amorphous Sediment 1+ URATE; Squamous Epithelial Cells - UA 0-5 SEEN /hpf (5-10)
[2023-01-06 21:34] LABS: ALB/GLOB Ratio 0.9 RATIO (0.9-2.4); AST(SGOT) 13 U/L (15-37); Alanine Aminotransfer ALT/SGPT 28 U/L (13-56); Albumin, Serum 3.3 g/dL (3.2-5.0); Alkaline Phosphatase 89 U/L (45-117); Anion Gap 8 (5-15); BUN 19 mg/dL (7-18); BUN/Creat Ratio 16.4 RATIO (10-20); Calcium,Total 8.8 mg/dL (8.5-10.1); Chloride 98 mmol/L (98-107); Creatinine, Serum 1.16 mg/dL (0.55-1.02); EST Glomerular Filtration Rate 49 mL/min (>60); Est Glom Filt Rate - Afr Amer 60 mL/min (>60); Globulin 3.6 g/dL (2.2-4.2); Glucose 634 mg/dL (74-106); Protein, Total 6.9 g/dL (6.4-8.2); Sodium Level 132 mmol/L (136-145)
[2023-01-06 22:00] VITALS: BMI 24.5
--- NOTE | 2023-01-06 22:02 | EX.ED.DYSGE1 ---
HPI History of Present Illness Chief Complaint: Hyperglycemia Informant: patient, family (multiple) and PCP Narrative Narrative: Patient was sent in by nurse practitioner from primary care due to routine blood work today showing severe hyperglycemia in the 560s. She is a known diabetic, she lives at home with a family member who is not around when working, history is very limited from the patient due to dementia, all of the questions and review of systems is answered by family members who accompany her today. They state she had a blood sugar meter that was not working, they have gotten a new 1, she is not using it or checking her blood sugars. Furthermore they also state that she was prescribed cephalexin today which she has not had yet, because of a urine infection that was diagnosed this morning by urinalysis. She has been having urinary frequency maybe a month. The family also states she has been having abdominal pain for an unknown duration of time. [facility] Medical History Abdominal pain Anxiety Anxiety and depression Arthritis Atherosclerotic heart disease of three affiliated coronary artery without angina pectoris Back pain Bladder disease Cardiology follow-up encounter Cerebrovascular disease Cognitive attention deficit Dementia Depression Dietary restriction Difficulty swallowing Dysphagia Essential (primary) hypertension Gastric reflux High cholesterol History of atrial fibrillation History of echocardiogram History of heart attack History of hiatal hernia History of ischemic multifocal multiple vascular territories stroke History of pain when walking History of stroke Hyperlipidemia Hypertension Insomnia Insulin dependent diabetes mellitus Loss of hearing Memory impairment Obesity Paroxysmal atrial fibrillation Post-menopausal Right ear pain Seasonal allergies Smoker TIA (transient ischemic attack) Type 2 diabetes mellitus Unspecified dementia without behavioral disturbance URI (upper respiratory infection) Urinary frequency Ventricular septal defect Walker as ambulation aid Wears dentures Wears glasses Home Medications aspirin 81 mg tablet,delayed release 81 mg PO DAILY heart health 12/26/17 [History Last Taken 09/28/22] walker #1 ea 02/22/20 [Rx Last Taken Unknown] pen needle, diabetic 31 gauge x 5/16 (BD Ultra-Fine Short Pen Needle) #100 ea 02/25/20 [Rx Last Taken Unknown] back brace #1 ea 02/16/21 [Rx Last Taken Unknown] lancets (Accu-Chek Softclix Lancets) #200 ea 07/04/21 [Rx Last Taken Unknown] blood glucose control, low (True Metrix Level 1 solution) #1 ea 07/05/21 [Rx Last Taken Unknown] blood sugar diagnostic (True Metrix Glucose Test Strip) #300 ea 07/05/21 [Rx Last Taken Unknown] pen needle, diabetic 32 gauge x 5/32 (Easy Comfort Pen Sebastian) #200 ea 03/06/22 [Rx Last Taken Unknown] rivaroxaban 10 mg tablet (Xarelto) 10 mg PO DAILY #90 tabs 03/07/22 [Rx Last Taken 09/28/22] gabapentin 300 mg capsule 300 mg PO QHS nerve pain #90 caps 06/12/22 [Rx Last Taken Unknown] Tresiba FlexTouch U-100 100 unit/mL (3 mL) subcutaneous pen (insulin degludec) 40 unit (0.4 mL) subcut DAILY 3 months #36 mL 07/04/22 [Rx Last Taken Unknown] atorvastatin 40 mg tablet See Rx Instructions .Route .COMPLEX #90 tabs 11/12/22 [Rx Last Taken Unknown] donepezil 10 mg tablet See Rx Instructions .Route .COMPLEX #90 tabs 11/12/22 [Rx Last Taken Unknown] duloxetine 30 mg capsule,delayed release See Rx Instructions .Route .COMPLEX #90 ea 11/12/22 [Rx Last Taken Unknown] glipizide 10 mg tablet, extended release 24 hr See Rx Instructions .Route .COMPLEX #90 tabs 11/12/22 [Rx Last Taken Unknown] trazodone 50 mg tablet See Rx Instructions .Route .COMPLEX #90 TABLETS 12/16/22 [Rx Last Taken Unknown] blood sugar diagnostic (FreeStyle Lite Strips) #200 ea 01/06/23 [Rx Last Taken Unknown] blood-glucose meter (FreeStyle Lite Meter kit) #1 ea 01/06/23 [Rx Last Taken Unknown] cephalexin 500 mg capsule 500 mg PO TID 1 week #21 caps 01/06/23 [Rx Last Taken Unknown] insulin aspart U-100 100 unit/mL (3 mL) subcutaneous pen (Novolog FlexPen U-100 Insulin aspart) 18 unit subcut TID 01/06/23 [History Last Taken Unknown] lancets 28 gauge (FreeStyle Lancets) #200 ea 01/06/23 [Rx Last Taken Unknown] losartan 50 mg tablet 25 mg PO DAILY 01/06/23 [History Last Taken Unknown] omeprazole 40 mg capsule,delayed release 40 mg PO DAILY #90 caps 01/06/23 [Rx Last Taken Unknown] Allergy/AdvReac Type Severity Reaction Status Date / Time No Known Allergies Allergy Verified 01/06/23 20:23 Family History Mother Ovarian cancer Father , age 79 Hypertension COPD (chronic obstructive pulmonary disease) Heart disease CVA (cerebral vascular accident) Sister , age 69 Multiple sclerosis Cancer bone cancer Sister Brain tumor Heart disease Brother A-fib Surgical History History of coronary artery stent placement (04/06/11) History of esophagogastroduodenoscopy (EGD) History of hysterectomy History of left heart catheterization (04/03/11) History of open heart surgery Hx of section Hx of cholecystectomy Hx of total hip arthroplasty Social History Smoking Status: Current every day smoker tobacco type: cigarettes alcohol intake: never substance use type: does not use what type of physical activity do you participate in: none ROS ROS ED Review of Systems ROS Unobtainable: due to mental status Gastrointestinal Gastrointestinal: Reports abdominal pain and other Details: Abdominal pain not present right now unless you push Genitourinary Genitourinary ED: Reports urinary frequency Endocrine Endocrinology: Reports polydipsia and polyuria EXAM Physical Exam Const Vital Signs: 01/06/23 20:24 Temperature 97.6 F L Temperature Source Temporal Pulse Rate 89 Respiratory Rate 18 Blood Pressure 106/66 Blood Pressure Mean 79 Pulse Ox 98 Oxygen Delivery Method Room Air Positive well nourished and well developed General Appearance ED: well developed and NAD HEENT Reports moist mucous membranes normocephalic and atraumatic Eyes PERRL and EOMs intact bilaterally Neck full ROM and supple Resp normal respiratory effort and clear to auscultation bilaterally Cardio regular rate, regular rhythm and no murmurs GI non-distended GI Narrative: Diffusely tender. No guarding or rebound tenderness. No palpable masses. Auscultation: normoactive bowel sounds Palpation: soft Back/Spine no CVA tenderness General Back: other FROM Extremity normal to inspection General Extremety ED: Negative for edema, pulses abnormal or tenderness General Extremity: Negative for edema or pulses abnormal Neuro CN's II-XII intact bilaterally and no sensory deficits noted Sensorium / Orientation: awake, alert and orientation impaired Motor Exam: strength 5/5 throughout Psych mental status grossly normal Skin no rashes or lesions noted and no wounds MDM MDM MDM Narrative Medical decision making narrative: I reviewed the outpatient information that was available to me, basically what I was told over the phone prior to the patient's arrival and labs that were obtained this morning which I am able to view. Her urinalysis showed positive nitrite, leukocyte Estrace, trace blood, and 5-10 white blood cells along with 1+ bacteria. We obtained a repeat urine to perform urinalysis on, and there is a discrepancy. This 1 shows none of the above, negative for everything including bacteria and shows 1+ urate which was not seen before. Both did show 1000 glucose. Family is wondering whether they should give her the antibiotic or not. I do not have a great explanation for this discrepancy, so clearly I do not have an answer regarding whether there is a true infection or not, I offered to send a culture which was done. Also family exclaimed concerned concerning her abdominal pain which she has been complaining of off-and-on for weeks if not months. She was tender everywhere, in order to get more information since the detailed history is lacking due to her dementia, I obtained a CT. I reviewed the images and the report, which I discussed with family and agree with, basically negative for anything acute. Limited with regards to the gallbladder but similar to prior. She does have constipation which may or may not be related to her pain. Notably, she is not significantly dehydrated or having acute kidney injury compared with her prior labs here. She was significantly hyperglycemic, IV fluids and insulin lispro 20 units were initially given subcutaneous, a couple hours later she was only down to 388. This was after eating a snack and having some water as well. I am given her an additional 14 units, and we will watch her with every hour blood sugars, plan for discharge once we get her down into the 200s and she is still doing okay. I did discuss with the family whether they were interested in placement, if so that would be a good reason for us to admit her tonight. They state they are not, they are going to arrange to care for her at home, temporarily at the least until they can get home health to come, and they do not want placement right now, so the plan will be discharge once we get her blood sugar down. History & Record Review Additional record(s) reviewed:: Prior outpatient record and Prior labs Lab Data Attestation: I reviewed the patient's lab results. Labs: Laboratory Results - last 24 hr 01/06/23 01/06/23 01/06/23 20:29 20:35 20:45 WBC 7.2 RBC 5.02 Hgb 15.7 H Hct 44.7 MCV 89.0 MCH 31.3 MCHC 35.1 RDW Std Deviation 37.7 RDW Coeff of Zakiya 11.7 Plt Count 200 MPV 10.7 Immature Gran % (Auto) 0.600 Neut % (Auto) 57.6 Lymph % (Auto) 33.3 [place] % (Auto) 7.4 Eos % (Auto) 0.7 Baso % (Auto) 0.4 Absolute Neuts (auto) 4.1 Absolute Lymphs (auto) 2.39 Nucleated RBC % 0 Sodium 132 L Potassium 4.0 Chloride 98 Carbon Dioxide 26.0 Anion Gap 8 BUN 19 H Creatinine 1.16 H Est GFR (MDRD) Af Amer 60 Est GFR (MDRD) Non-Af 49 L BUN/Creatinine Ratio 16.4 Glucose 634 H* Calcium 8.8 Total Bilirubin 0.30 AST 13 L ALT 28 Alkaline Phosphatase 89 Total Protein 6.9 Albumin 3.3 Globulin 3.6 Albumin/Globulin Ratio 0.9 Lipase Urine Color Yellow Urine Clarity Sl. Cloudy Urine pH 6.0 Ur Specific [place] 1.010 Urine Protein 30 H Urine Glucose (UA) 1000 H Urine Ketones Negative Urine Occult Blood Negative Urine Nitrite Negative Urine Bilirubin Negative Urine Urobilinogen Normal Ur Leukocyte Esterase Negative Urine RBC 0 SEEN Urine WBC 0 SEEN Ur Squamous Epith Cells 0-5 SEEN Amorphous Sediment 1+ URATE Urine Bacteria 0 SEEN Urine Mucus 0 SEEN POC Glucose > 500 H* 01/06/23 01/06/23 01/07/23 22:07 23:23 00:27 WBC RBC Hgb Hct MCV MCH MCHC RDW Std Deviation RDW Coeff of Zakiya Plt Count MPV Immature Gran % (Auto) Neut % (Auto) Lymph % (Auto) [place] % (Auto) Eos % (Auto) Baso % (Auto) Absolute Neuts (auto) Absolute Lymphs (auto) Nucleated RBC % Sodium Potassium Chloride Carbon Dioxide Anion Gap BUN Creatinine Est GFR (MDRD) Af Amer Est GFR (MDRD) Non-Af BUN/Creatinine Ratio Glucose Calcium Total Bilirubin AST ALT Alkaline Phosphatase Total Protein Albumin Globulin Albumin/Globulin Ratio Lipase 65 Urine Color Urine Clarity Urine pH Ur Specific [place] Urine Protein Urine Glucose (UA) Urine Ketones Urine Occult Blood Urine Nitrite Urine Bilirubin Urine Urobilinogen Ur Leukocyte Esterase Urine RBC Urine WBC Ur Squamous Epith Cells Amorphous Sediment Urine Bacteria Urine Mucus POC Glucose 437 H 443 H Radiography Diagnostic Testing: Clinical Impression(s) from Imaging Studies Abdomen/Pelvis CT 01/06/23 22:06 IMPRESSION: 1. Moderate amount of retained stool throughout the colon. Anastomotic sutures are present without change. No evidence of bowel obstruction. 2. No free fluid abscess or free air. 3. Gallbladder is not well visualized, findings are stable. 4. Mildly atrophic RIGHT kidney and small RIGHT renal cyst noted. 5. No renal calcifications or obstructive uropathy. Electronically Signed: Milan Desai MD at 23:29 EDT Reading Location ID and State: [facility] / [place] Tel , Service support , Discharge Plan Triage Chief Complaint: Hyperglycemia ED Provider: Kevon Pichardo Dx/Rx/DC Orders Clinical Impression: Hyperglycemia due to type 2 diabetes mellitus, Dementia, CKD (chronic kidney disease), Abdominal pain Instructions: ED Diabetic Hyperglycemia Prescriptions: No Action Xarelto 10 mg tablet 10 mg PO DAILY Qty: 90 2RF Rx Instructions: for 35 days Tresiba FlexTouch U-100 100 unit/mL (3 mL) insulin pen 40 unit subcut DAILY 90 Days Qty: 36 3RF losartan 50 mg tablet 25 mg PO DAILY insulin aspart U-100 [Novolog FlexPen U-100 Insulin] 100 unit/mL (3 mL) insulin pen 18 unit subcut TID (DME) FreeStyle Lite Strips Strip See Rx Instructions .MEDSUPPLY Qty: 200 3RF Rx Instructions: check blood 3x glucose daily for type 2 DM (DME) blood-glucose meter [FreeStyle Lite Meter] Kit See Rx Instructions .MEDSUPPLY Qty: 1 0RF Rx Instructions: As directed, check blood glucose 3x daily for type 2 DM (DME) lancets [FreeStyle Lancets] 28 gauge misc See Rx Instructions .MEDSUPPLY Qty: 200 3RF Rx Instructions: check blood glucose 3x daily for type 2 DM omeprazole 40 mg capsule,delayed release(DR/EC) 40 mg PO DAILY Qty: 90 3RF aspirin 81 MG tablet,delayed release (DR/EC) 81 mg PO DAILY (DME) walker Misc See Rx Instructions .ROUTE .MEDSUPPLY Qty: 1 0RF Rx Instructions: As directed (DME) pen needle, diabetic [BD Ultra-Fine Short Pen Needle] 31 gauge x 5/16 needle See Rx Instructions .ROUTE .MEDSUPPLY Qty: 100 5RF Rx Instructions: bid (DME) back brace Misc See Rx Instructions .ROUTE .MEDSUPPLY Qty: 1 0RF Rx Instructions: As directed for back pain (DME) lancets [Accu-Chek Softclix Lancets] [facility] See Rx Instructions .ROUTE .MEDSUPPLY Qty: 200 4RF Rx Instructions: Check blood sugar 3 times a day (DME) True Metrix Level 1 Solution See Rx Instructions .ROUTE .MEDSUPPLY Qty: 1 0RF Rx Instructions: As directed for type 2 DM (DME) True Metrix Glucose Test Strip Strip See Rx Instructions .ROUTE .MEDSUPPLY Qty: 300 3RF Rx Instructions: three times daily (DME) pen needle, diabetic [Easy Comfort Pen Sebastian] 32 gauge x 5/32 needle See Rx Instructions .ROUTE .MEDSUPPLY Qty: 200 3RF Rx Instructions: As directed gabapentin 300 mg capsule 300 mg PO QHS Qty: 90 0RF atorvastatin 40 mg tablet See Rx Instructions .ROUTE .COMPLEX Qty: 90 0RF Dose Instruction: TAKE 1 TABLET BY MOUTH AT BEDTIME FOR CHOLESTEROL Rx Instructions: TAKE 1 TABLET BY MOUTH AT BEDTIME FOR CHOLESTEROL glipizide 10 mg tablet extended release 24hr See Rx Instructions .ROUTE .COMPLEX Qty: 90 0RF Dose Instruction: TAKE 1 TABLET BY MOUTH ONCE DAILY FOR DIABETES Rx Instructions: TAKE 1 TABLET BY MOUTH ONCE DAILY FOR DIABETES donepezil 10 mg tablet See Rx Instructions .ROUTE .COMPLEX Qty: 90 0RF Dose Instruction: TAKE 1 TABLET BY MOUTH ONCE DAILY AT BEDTIME Rx Instructions: TAKE 1 TABLET BY MOUTH ONCE DAILY AT BEDTIME duloxetine 30 mg capsule,delayed release(DR/EC) See Rx Instructions .ROUTE .COMPLEX Qty: 90 0RF Dose Instruction: Take 1 capsule by mouth once daily Rx Instructions: Take 1 capsule by mouth once daily trazodone 50 mg tablet See Rx Instructions .ROUTE .COMPLEX Qty: 90 0RF Dose Instruction: TAKE 1 TABLET BY MOUTH ONCE DAILY AT BEDTIME Rx Instructions: TAKE 1 TABLET BY MOUTH ONCE DAILY AT BEDTIME cephalexin 500 mg capsule 500 mg PO TID 7 Days Qty: 21 0RF Primary Care Provider: Obed Scott Referrals: Obed Scott MD [Primary Care Provider] - As soon as possible Activity Restrictions/Additional Instructions: Urine culture was sent at the hospital, should take 1-3 days to return, depending on what the results are (strongly infected specimens typically return something sooner). Make sure you follow up with your PCP to review the results. Would be reasonable to take the cephalexin until those results are back, or you may discuss with her doctor tomorrow regarding what they would like her to do. Disposition Disposition: Home, Self Care
--- NOTE | 2023-01-06 22:06 | CT_ITS ---
INDICATION: diffuse abd pain EXAMINATION: CT ABDOMEN AND PELVIS with CONTRAST - CT Abdomen And Pelvis W/ Contrast Injection TECHNIQUE: Multiple axial images were obtained of the abdomen and pelvis following administration of IV contrast. Planar reconstructions obtained. A radiation dose optimization technique was used for this scan. RADIATION DOSAGE (If Supplied By Facility): CTDIvol = ( 18.52 ) mGy, DLP = ( 954.69 ) mGycm IV Contrast dosage and agent: 100 mL Isovue 300 Oral contrast: None. COMPARISON: 10/27/2021 FINDINGS: LOWER THORAX: Lungs are clear. Cardiac contour is normal, no pericardial effusion. No coronary vascular calcifications noted. HEPATOBILIARY: Liver: The liver is homogeneous and shows no evidence of focal lesion. Gallbladder: Gallbladder is not well-visualized and may be surgically absent. Common bile duct at the level of pancreatic head measures 11 mm. Pancreas: Pancreas is normal size configuration and density. No mass is noted. Spleen: The spleen is homogeneous and normal in size. . BOWEL: Stomach: The stomach is normal in size configuration, no evidence of focal masses, abnormal calcifications. No hiatal hernia noted. Bowel: Large small bowel segments have normal configuration. There is a large amount retained stool throughout the colon. Anastomotic sutures are present in the descending colon. No masses or bowel obstruction. No evidence diverticulitis. Appendix: The appendix is not adequately visualized.: GENITOURINARY: Adrenals: Both adrenal glands are normal in size. Kidneys: RIGHT kidney is mildly atrophic. Small RIGHT renal cyst is present. No evidence calcifications or obstructive uropathy bilaterally.. Bladder: Normal Pelvic organs: The visualized pelvic organs are normal in size and configuration. No masses or adenopathy noted. Surgical clips are present along the pelvic sidewalls. Sequelae of prior tubal ligation is a consideration. RETROPERITONEUM: Diffuse aortic calcifications without aneurysmal dilatation. LYMPH NODES: No evidence of retroperitoneal or para-aortic masses fluid collections or adenopathy. PERITONEAL CAVITY: No ascites noted ANTERIOR ABDOMINAL WALL: Normal, no hernia identified. BONES AND SOFT TISSUES: Sequelae of prior RIGHT hip arthroplasty. No acute bony changes noted. Diffuse lumbar spondylosis most notable at L5-S1 with disc space narrowing and minimal osteophyte formation. OTHER: None CT/Abdomen/Pelvis W IV Cont ONLY IMPRESSION: 1. Moderate amount of retained stool throughout the colon. Anastomotic sutures are present without change. No evidence of bowel obstruction. 2. No free fluid abscess or free air. 3. Gallbladder is not well visualized, findings are stable. 4. Mildly atrophic RIGHT kidney and small RIGHT renal cyst noted. 5. No renal calcifications or obstructive uropathy. Electronically Signed: Milan Desai MD at 23:29 EDT ,
[2023-01-06] MEDS: Insulin Lispro 100 UNIT/ML INSULN.PEN 20 UNIT SC (22:15)
[2023-01-06 22:46] LABS: Lipase 65 U/L (13-75)
[2023-01-06 23:42] LABS: Bedside Glucose 437 mg/dL (74-106)
[2023-01-07 00:46] LABS: Bedside Glucose 443 mg/dL (74-106)
[2023-01-07] MEDS: Insulin Lispro 100 UNIT/ML INSULN.PEN 14 UNIT SC (01:38)
[2023-01-07 01:58] LABS: Bedside Glucose 388 mg/dL (74-106)
[2023-01-07 02:22] VITALS: BP 141/70; PULSE 79; RESP 16; O2SAT 95
[2023-01-07 03:04] LABS: Bedside Glucose 354 mg/dL (74-106)
[2023-01-07 04:02] LABS: Bedside Glucose 324 mg/dL (74-106)
[2023-01-07 04:48] LABS: Bedside Glucose 332 mg/dL (74-106)
== END 2023-01-07 05:03 | disposition home or self-care (01) ==
PROVIDERS: Emergency Provider Emergency Medicine; PCP Internal Medicine; Visit Provider Emergency Medicine
DX: E11.65 Type 2 diabetes mellitus with hyperglycemia (principal); F03.90 Unspecified dementia, unspecified severity, without behavioral disturbance, psychotic disturbance, mood disturbance, and anxiety; E11.22 Type 2 diabetes mellitus with diabetic chronic kidney disease; I48.0 Paroxysmal atrial fibrillation; Z79.4 Long term (current) use of insulin; N18.30 Chronic kidney disease, stage 3 unspecified; R35.0 Frequency of micturition; I25.10 Atherosclerotic heart disease of native coronary artery without angina pectoris; E78.00 Pure hypercholesterolemia, unspecified; I12.9 Hypertensive chronic kidney disease with stage 1 through stage 4 chronic kidney disease, or unspecified chronic kidney disease; R10.9 Unspecified abdominal pain; Z79.899 Other long term (current) drug therapy; Z86.73 Personal history of transient ischemic attack (TIA), and cerebral infarction without residual deficits; Z79.82 Long term (current) use of aspirin; Z79.01 Long term (current) use of anticoagulants; K21.9 Gastro-esophageal reflux disease without esophagitis; Z95.5 Presence of coronary angioplasty implant and graft; Z90.710 Acquired absence of both cervix and uterus; Z90.49 Acquired absence of other specified parts of digestive tract; Z96.649 Presence of unspecified artificial hip joint; F17.210 Nicotine dependence, cigarettes, uncomplicated
CPT/HCPCS: 36415; 74177; 80053; 81001; 82043; 82570; 82962; 83690; 85025; 87086; 87088; 87186; 96360; 96361; 96372; 99282; J7030; Q9967; A4216

== ENCOUNTER → 2023-01-06 | Outpatient (CLI) | payer MEDICARE, SELFPAY ==
[2023-01-06 15:12] LABS: Mucous, Urine 0 SEEN /hpf (<or=2+)
[2023-01-06 16:45] LABS: Absolute Lymphocyte Count 2.37 X10^3/uL (0.83-4.51); Absolute Neutrophil Count 6.5 X10^3/uL (2.0-7.7); Basophil# 0.05 X10^3/uL; Basophil% 0.5 % (0-1); Eosinophil# 0.07 X10^3/uL; Eosinophils% 0.7 % (0-5); Hematocrit 46.9 % (37-47); Hemoglobin 16.1 g/dL (12.0-15.0); Lymphocyte # 2.37 X10^3/ul (0.83-4.51); Lymphocyte % 24.5 % (19-41); Mean Corp Hgb Conc 34.3 g/dL (32-36); Mean Corpuscular Volume 90.4 fL (81-99); Mean Platelet Vol. 11.1 fl (6.2-12.0); Monocyte# 0.66 X10^3/uL; Monocyte% 6.8 % (0-10); NRBC Flagged by Analyzer 0 % (0-5); Neutrophil # 6.49 X10^3/uL (2.7-7.7); Neutrophil % 67.1 % (47-70); Platelet Count 238 K/mm3 (150-450); RBC Distribution Width CV 11.8 % (11.6-14.6); RBC Distribution Width SD 38.9 fl (35.1-43.9); Red Blood Count 5.19 M/mm3 (4.2-5.4); White Blood Count 9.7 K/mm3 (4.4-11.0)
[2023-01-06 16:46] LABS: Color, Urine Yellow (Yellow); Glucose, Dipstick 1000 mg/dl (Normal); Ketone-Dipstick Negative (Negative); Leukocyte Esterase-Dipstick 100 /ul (Negative); Nitrite-Dipstick Positive (Negative); Occult Blood-Urine 10 /ul (Negative); Protein-Dipstick 30 mg/dl (Negative); Urine Bilirubin Dipstick Negative (Negative); Urine Clarity Clear (Clear); Urine Urobilinogen Normal (Normal)
[2023-01-06 16:54] LABS: Bacteria 1+ /hpf (None Seen); Red Blood Cells-Urine 0-5 SEEN /hpf (0-5); Squamous Epithelial Cells - UA 0-5 SEEN /hpf (5-10); White Blood Cells 5-10 SEEN /hpf (0-5)
[2023-01-06 17:22] LABS: Microalbumin,Random Urine 93.1 mg/L (NO RANGE EST.); Microalbumin:Creatinine Ratio 278.7 mg/g CRE (<30 mg/g CRE)
[2023-01-06 19:44] LABS: ALB/GLOB Ratio 0.7 RATIO (0.9-2.4); AST(SGOT) 17 U/L (15-37); Alanine Aminotransfer ALT/SGPT 32 U/L (13-56); Albumin, Serum 3.2 g/dL (3.2-5.0); Alkaline Phosphatase 82 U/L (45-117); Anion Gap 5 (5-15); BUN 20 mg/dL (7-18); BUN/Creat Ratio 16.9 RATIO (10-20); Calcium,Total 9.1 mg/dL (8.5-10.1); Chloride 100 mmol/L (98-107); Creatinine, Serum 1.18 mg/dL (0.55-1.02); EST Glomerular Filtration Rate 48 mL/min (>60); Est Glom Filt Rate - Afr Amer 59 mL/min (>60); Globulin 4.4 g/dL (2.2-4.2); Glucose 546 mg/dL (74-106); Potassium 4.6 mmol/L (3.5-5.1); Protein, Total 7.6 g/dL (6.4-8.2); Sodium Level 132 mmol/L (136-145)
== END | disposition home or self-care (01) ==
LOC: BIMLAB 15:11
PROVIDERS: PCP Internal Medicine; Referring Provider Internal Medicine; Visit Provider Internal Medicine
DX: R35.0 Frequency of micturition (principal); E11.22 Type 2 diabetes mellitus with diabetic chronic kidney disease; Z79.4 Long term (current) use of insulin; N18.30 Chronic kidney disease, stage 3 unspecified
CPT/HCPCS: 36415; 80053; 81001; 82043; 82570; 85025

== ENCOUNTER 2023-02-07 18:09 | Emergency (ER) | payer MEDICARE, SELFPAY ==
[2023-02-07 18:10] VITALS: PULSE 56; RESP 14; TEMP 35.8; O2SAT 97; BMI 25.4
[2023-02-07 18:20] VITALS: BP 132/60
--- NOTE | 2023-02-07 18:37 | EDS_ITS ---
HPI History of Present Illness Chief Complaint: Hypoglycemia Informant: patient and family Narrative Narrative: Patient was feeling weak lightheaded and sweaty at home. Her glucose was found to be 42. She has been given some glucose in the ED and she is now 116. She states she feels markedly better now. Patient is a long-term diabetic type II. She takes 40 units of Tresiba a day. She then uses 18 units of aspart a few times a day with meals. She does not have a sliding scale. She is also on 10 mg of glipizide. She has just moved in with her son and his over the last 4 days. She has been getting all her medicines. But they have been very careful about her diet. Prior to this she would just snack on anything she had all day long. But now they have been cooking regular meals. They have kept track of it. And it sounds like the meals they have been cooking are generally higher in protein in the lower in simple carbohydrates. Therefore the patient will not have nearly as much of a need for insulin and meds as she did prior. [facility] Medical History Abdominal pain Anxiety Anxiety and depression Arthritis Atherosclerotic heart disease of [place] coronary artery without angina pectoris Back pain Bladder disease Cardiology follow-up encounter Cerebrovascular disease Cognitive attention deficit Dementia Depression Dietary restriction Difficulty swallowing Dysphagia Essential (primary) hypertension Gastric reflux High cholesterol History of atrial fibrillation History of echocardiogram History of heart attack History of hiatal hernia History of ischemic multifocal multiple vascular territories stroke History of pain when walking History of stroke Hyperlipidemia Hypertension Insomnia Insulin dependent diabetes mellitus Loss of hearing Memory impairment Obesity Paroxysmal atrial fibrillation Post-menopausal Right ear pain Seasonal allergies Smoker TIA (transient ischemic attack) Type 2 diabetes mellitus Unspecified dementia without behavioral disturbance URI (upper respiratory infection) Urinary frequency Ventricular septal defect Walker as ambulation aid Wears dentures Wears glasses Home Medications aspirin 81 mg tablet,delayed release 81 mg PO DAILY heart health 12/26/17 [History Last Taken 09/28/22] walker #1 ea 02/22/20 [Rx Last Taken Unknown] pen needle, diabetic 31 gauge x 5/16 (BD Ultra-Fine Short Pen Needle) #100 ea 02/25/20 [Rx Last Taken Unknown] back brace #1 ea 02/16/21 [Rx Last Taken Unknown] lancets (Accu-Chek Softclix Lancets) #200 ea 07/04/21 [Rx Last Taken Unknown] blood glucose control, low (True Metrix Level 1 solution) #1 ea 07/05/21 [Rx Last Taken Unknown] blood sugar diagnostic (True Metrix Glucose Test Strip) #300 ea 07/05/21 [Rx Last Taken Unknown] pen needle, diabetic 32 gauge x 5/32 (Easy Comfort Pen [place]) #200 ea 03/06/22 [Rx Last Taken Unknown] rivaroxaban 10 mg tablet (Xarelto) 10 mg PO DAILY #90 tabs 03/07/22 [Rx Last Taken 09/28/22] gabapentin 300 mg capsule 300 mg PO QHS nerve pain #90 caps 06/12/22 [Rx Last Taken Unknown] Tresiba FlexTouch U-100 100 unit/mL (3 mL) subcutaneous pen (insulin degludec) 40 unit (0.4 mL) subcut DAILY 3 months #36 mL 07/04/22 [Rx Last Taken Unknown] atorvastatin 40 mg tablet See Rx Instructions .Route .COMPLEX #90 tabs 11/12/22 [Rx Last Taken Unknown] donepezil 10 mg tablet See Rx Instructions .Route .COMPLEX #90 tabs 11/12/22 [Rx Last Taken Unknown] duloxetine 30 mg capsule,delayed release See Rx Instructions .Route .COMPLEX #90 ea 11/12/22 [Rx Last Taken Unknown] glipizide 10 mg tablet, extended release 24 hr See Rx Instructions .Route .COMPLEX #90 tabs 11/12/22 [Rx Last Taken Unknown] trazodone 50 mg tablet See Rx Instructions .Route .COMPLEX #90 TABLETS 12/16/22 [Rx Last Taken Unknown] blood sugar diagnostic (FreeStyle Lite Strips) #200 ea 01/06/23 [Rx Last Taken Unknown] blood-glucose meter (FreeStyle Lite Meter kit) #1 ea 01/06/23 [Rx Last Taken Unknown] insulin aspart U-100 100 unit/mL (3 mL) subcutaneous pen (Novolog FlexPen U-100 Insulin aspart) 18 unit subcut TID 01/06/23 [History Last Taken Unknown] lancets 28 gauge (FreeStyle Lancets) #200 ea 01/06/23 [Rx Last Taken Unknown] losartan 50 mg tablet 25 mg PO DAILY 01/06/23 [History Last Taken Unknown] omeprazole 40 mg capsule,delayed release 40 mg PO DAILY #90 caps 01/06/23 [Rx Last Taken Unknown] Lift Chair #1 ea 01/31/23 [Rx Last Taken Unknown] Allergy/AdvReac Type Severity Reaction Status Date / Time No Known Allergies Allergy Verified 01/06/23 20:23 Family History Mother Ovarian cancer Father , age 79 Hypertension COPD (chronic obstructive pulmonary disease) Heart disease CVA (cerebral vascular accident) Sister , age 69 Multiple sclerosis Cancer bone cancer Sister Brain tumor Heart disease Brother A-fib Surgical History History of coronary artery stent placement (04/06/11) History of esophagogastroduodenoscopy (EGD) History of hysterectomy History of left heart catheterization (04/03/11) History of open heart surgery Hx of section Hx of cholecystectomy Hx of total hip arthroplasty Social History Smoking Status: Current every day smoker tobacco type: cigarettes alcohol intake: never substance use type: does not use what type of physical activity do you participate in: none ROS ROS ED ROS Narrative A complete review of systems was performed and is negative except as documented in the history of present illness. Some specific details below. Constitutional: No recent fevers or chills. She has not been feeling ill. EYE: No visual complaints or pain. ENT: No difficulty swallowing. No swelling. No pain. CV: No chest pain or palpitations. She was not syncopal. Respiratory: No dyspnea. No hemoptysis. No difficulty taking breaths. GI: No nausea vomiting or diarrhea. She is able to eat and drink well : No frequency dysuria or hematuria. Musculoskeletal: No recent trauma. No pains. Skin: No rash. She was diaphoretic but no longer. Neuro: No focal weakness or numbness. See also history of present illness. Endocrine: No polyuria or polydipsia. EXAM Physical Exam Narrative Exam Narrative: CONSTITUTIONAL: Patient is nontoxic in appearance. The patient looks comfortable. She is wide awake and alert as I walk in the room HEENT: No notable trauma. Mucous membranes moist. No sinus tenderness. No indication of pain with swallowing. The edges of her hair a little bit moist as if she was diaphoretic recently but it no longer is. EYES: No conjunctival injection. No proptosis. CARDIOVASCULAR: Mildly bradycardic rate. Her rate is running about 50-62 while I am in the room on the monitor. It looks regular and I do not see ectopy. Regular rhythm. No notable murmur. No JVD. RESPIRATORY: No respiratory distress. Breathing is unlabored. No wheezes. No rhonchi. No rales. No pain with a deep breath. GASTROINTESTINAL: Not distended. Bowel sounds are normal. No tenderness. No guarding. No rebound. No palpable mass. No bruit. GENITOURINARY: No tenderness over the bladder. No CVA tenderness. MUSCULOSKELETAL: Atraumatic. No peripheral edema. No cord. No tenderness along the deep venous system. No asymmetry. NEUROLOGICAL: Patient is alert and appropriate. No focal deficit noted. SKIN: No noted rashes. No diaphoresis. PSYCHIATRIC: Patient is calm. Mood is appropriate. Const Vital Signs: 02/07/23 18:10 02/07/23 18:20 02/07/23 20:07 Temperature 96.5 F L Temperature Source Temporal Pulse Rate 56 L 60 Respiratory Rate 14 14 Blood Pressure 132/60 H Blood Pressure Mean 84 Pulse Ox 97 97 Oxygen Delivery Method Room Air Room Air MDM MDM MDM Narrative Medical decision making narrative: We discussed options with the patient and family. Because she is on both Tresiba and glipizide I would like to watch her for a while to see if she drops further. But we need her to eat some food. We discussed that she may need a cut back of her medications. Understanding that this may cause her to rise in her blood sugar but this is safer than frequent lows. Long-term, she will need to be in close conversation with her primary physician to adjust her insulin and to possibly even get on a sliding scale. The family states that the other day when she had a lot of white Serbian bread her sugar went up. So they have cut out all of that. She is actually having very little carbohydrates in her meals now and I think this contributed today's occurrence. Although long-term this may be helpful we may need to make gentle changes. Patient CBC is normal. Patient's electrolytes are normal other than mild decreased potassium. This should correct with diet. Blood work showed mild high BUN to creatinine ratio. But her creatinine was preserved and normal. BG T was reached at 99. He is eating and is 177. She checked again she is awake alert and appropriate. They have been wanting to go home for a while now. They want to manage this at home. They are comfortable doing increased frequency of blood sugar checks. We will have them cut the Tresiba back from 40 to 30 units a day. If they have any further problems they will hold their glipizide. They will talk to their primary physician about dosage of insulin, possible short-term sliding scale to get overall need, and also consideration of a CGM connected to the patient's phone and mirrored to the family's phone to allow them to know if her blood sugars are rising or falling too quickly. Lab Data Attestation: I reviewed the patient's lab results. Labs: Laboratory Results - last 24 hr 02/07/23 02/07/23 02/07/23 18:16 18:26 19:28 WBC 7.1 RBC 4.67 Hgb 14.4 Hct 43.0 MCV 92.1 MCH 30.8 MCHC 33.5 RDW Std Deviation 41.4 RDW Coeff of Zakiya 12.4 Plt Count 240 MPV 10.6 Immature Gran % (Auto) 0.400 Neut % (Auto) 69.7 Lymph % (Auto) 19.6 [place] % (Auto) 9.1 Eos % (Auto) 0.6 Baso % (Auto) 0.6 Absolute Neuts (auto) 5.0 Absolute Lymphs (auto) 1.40 Nucleated RBC % 0 Sodium 139 Potassium 2.9 L Chloride 106 Carbon Dioxide 25.0 Anion Gap 8 BUN 24 H Creatinine 0.78 Estim Creat Clear Calc 56.27 Est GFR (MDRD) Af Amer 94 Est GFR (MDRD) Non-Af 78 BUN/Creatinine Ratio 30.7 H Glucose 109 H Calcium 9.0 POC Glucose 116 H 99 02/07/23 20:51 WBC RBC Hgb Hct MCV MCH MCHC RDW Std Deviation RDW Coeff of Zakiya Plt Count MPV Immature Gran % (Auto) Neut % (Auto) Lymph % (Auto) [place] % (Auto) Eos % (Auto) Baso % (Auto) Absolute Neuts (auto) Absolute Lymphs (auto) Nucleated RBC % Sodium Potassium Chloride Carbon Dioxide Anion Gap BUN Creatinine Estim Creat Clear Calc Est GFR (MDRD) Af Amer Est GFR (MDRD) Non-Af BUN/Creatinine Ratio Glucose Calcium POC Glucose 177 H Discharge Plan Triage Chief Complaint: Hypoglycemia ED Provider: Ramon Hurd Dx/Rx/DC Orders Clinical Impression: Hypoglycemic event in diabetes Instructions: ED Diabetic Insulin Reaction, ED Diet: Diabetes Prescriptions: No Action Xarelto 10 mg tablet 10 mg PO DAILY Qty: 90 2RF Rx Instructions: for 35 days Tresiba FlexTouch U-100 100 unit/mL (3 mL) insulin pen 40 unit subcut DAILY 90 Days Qty: 36 3RF losartan 50 mg tablet 25 mg PO DAILY insulin aspart U-100 [Novolog FlexPen U-100 Insulin] 100 unit/mL (3 mL) insulin pen 18 unit subcut TID (DME) FreeStyle Lite Strips Strip See Rx Instructions .MEDSUPPLY Qty: 200 3RF Rx Instructions: check blood 3x glucose daily for type 2 DM (DME) blood-glucose meter [FreeStyle Lite Meter] Kit See Rx Instructions .MEDSUPPLY Qty: 1 0RF Rx Instructions: As directed, check blood glucose 3x daily for type 2 DM (DME) lancets [FreeStyle Lancets] 28 gauge misc See Rx Instructions .MEDSUPPLY Qty: 200 3RF Rx Instructions: check blood glucose 3x daily for type 2 DM omeprazole 40 mg capsule,delayed release(DR/EC) 40 mg PO DAILY Qty: 90 3RF aspirin 81 MG tablet,delayed release (DR/EC) 81 mg PO DAILY (DME) walker Misc See Rx Instructions .ROUTE .MEDSUPPLY Qty: 1 0RF Rx Instructions: As directed (DME) pen needle, diabetic [BD Ultra-Fine Short Pen Needle] 31 gauge x 5/16 needle See Rx Instructions .ROUTE .MEDSUPPLY Qty: 100 5RF Rx Instructions: bid (DME) back brace Misc See Rx Instructions .ROUTE .MEDSUPPLY Qty: 1 0RF Rx Instructions: As directed for back pain (DME) lancets [Accu-Chek Softclix Lancets] Misc See Rx Instructions .ROUTE .MEDSUPPLY Qty: 200 4RF Rx Instructions: Check blood sugar 3 times a day (DME) True Metrix Level 1 Solution See Rx Instructions .ROUTE .MEDSUPPLY Qty: 1 0RF Rx Instructions: As directed for type 2 DM (DME) True Metrix Glucose Test Strip Strip See Rx Instructions .ROUTE .MEDSUPPLY Qty: 300 3RF Rx Instructions: three times daily (DME) pen needle, diabetic [Easy Comfort Pen [place]] 32 gauge x 5/32 needle See Rx Instructions .ROUTE .MEDSUPPLY Qty: 200 3RF Rx Instructions: As directed gabapentin 300 mg capsule 300 mg PO QHS Qty: 90 0RF atorvastatin 40 mg tablet See Rx Instructions .ROUTE .COMPLEX Qty: 90 0RF Dose Instruction: TAKE 1 TABLET BY MOUTH AT BEDTIME FOR CHOLESTEROL Rx Instructions: TAKE 1 TABLET BY MOUTH AT BEDTIME FOR CHOLESTEROL glipizide 10 mg tablet extended release 24hr See Rx Instructions .ROUTE .COMPLEX Qty: 90 0RF Dose Instruction: TAKE 1 TABLET BY MOUTH ONCE DAILY FOR DIABETES Rx Instructions: TAKE 1 TABLET BY MOUTH ONCE DAILY FOR DIABETES donepezil 10 mg tablet See Rx Instructions .ROUTE .COMPLEX Qty: 90 0RF Dose Instruction: TAKE 1 TABLET BY MOUTH ONCE DAILY AT BEDTIME Rx Instructions: TAKE 1 TABLET BY MOUTH ONCE DAILY AT BEDTIME duloxetine 30 mg capsule,delayed release(DR/EC) See Rx Instructions .ROUTE .COMPLEX Qty: 90 0RF Dose Instruction: Take 1 capsule by mouth once daily Rx Instructions: Take 1 capsule by mouth once daily trazodone 50 mg tablet See Rx Instructions .ROUTE .COMPLEX Qty: 90 0RF Dose Instruction: TAKE 1 TABLET BY MOUTH ONCE DAILY AT BEDTIME Rx Instructions: TAKE 1 TABLET BY MOUTH ONCE DAILY AT BEDTIME (DME) Lift Chair See Rx Instructions .Route .MEDSUPPLY Qty: 1 0RF Rx Instructions: As directed Primary Care Provider: Obed Scott Referrals: Obed Scott MD [Primary Care Provider] - As soon as possible Activity Restrictions/Additional Instructions: Reduce Tresiba from 40 units in the morning to 30. If you are still having any low sugars, hold the glipizide tablet. Check your blood sugars frequently during the day and more frequently if used start to drop at all low. Contact your physician for further dosing. Please feel free to return with any difficulties. Disposition Disposition: Home, Self Care
[2023-02-07 18:45] LABS: Bedside Glucose 116 mg/dL (74-106)
[2023-02-07 18:45] LABS: Basophil# 0.04 X10^3/uL; Basophil% 0.6 % (0-1); Eosinophil# 0.04 X10^3/uL; Eosinophils% 0.6 % (0-5); Hemoglobin 14.4 g/dL (12.0-15.0); Lymphocyte % 19.6 % (19-41); Mean Corp Hgb Conc 33.5 g/dL (32-36); Mean Corpuscular Hgb 30.8 pg (27.0-32.0); Mean Corpuscular Volume 92.1 fL (81-99); Mean Platelet Vol. 10.6 fl (6.2-12.0); Monocyte# 0.65 X10^3/uL; Monocyte% 9.1 % (0-10); NRBC Flagged by Analyzer 0 % (0-5); Neutrophil # 4.97 X10^3/uL (2.7-7.7); Neutrophil % 69.7 % (47-70); Platelet Count 240 K/mm3 (150-450); RBC Distribution Width CV 12.4 % (11.6-14.6); RBC Distribution Width SD 41.4 fl (35.1-43.9); Red Blood Count 4.67 M/mm3 (4.2-5.4); White Blood Count 7.1 K/mm3 (4.4-11.0)
[2023-02-07 19:02] LABS: Anion Gap 8 (5-15); BUN 24 mg/dL (7-18); BUN/Creat Ratio 30.7 RATIO (10-20); Chloride 106 mmol/L (98-107); Creatinine, Serum 0.78 mg/dL (0.55-1.02); EST Glomerular Filtration Rate 78 mL/min (>60); Est Glom Filt Rate - Afr Amer 94 mL/min (>60); Estimated Creatinine Clearance 56.27 ml/min; Glucose 109 mg/dL (74-106); Potassium 2.9 mmol/L (3.5-5.1); Sodium Level 139 mmol/L (136-145)
[2023-02-07 19:46] LABS: Bedside Glucose 99 mg/dL (74-106)
[2023-02-07 20:07] VITALS: PULSE 60; RESP 14; O2SAT 97
[2023-02-07 21:15] LABS: Bedside Glucose 177 mg/dL (74-106)
[2023-02-07 22:00] VITALS: BP 133/63; PULSE 71; RESP 21; O2SAT 97
== END 2023-02-07 22:07 | disposition home or self-care (01) ==
PROVIDERS: Emergency Provider Emergency Medicine; PCP Internal Medicine; Visit Provider Emergency Medicine
DX: E11.649 Type 2 diabetes mellitus with hypoglycemia without coma (principal); I48.0 Paroxysmal atrial fibrillation; Z79.4 Long term (current) use of insulin; I25.10 Atherosclerotic heart disease of native coronary artery without angina pectoris; Z79.84 Long term (current) use of oral hypoglycemic drugs; E78.00 Pure hypercholesterolemia, unspecified; I10 Essential (primary) hypertension; Z86.73 Personal history of transient ischemic attack (TIA), and cerebral infarction without residual deficits; Z79.82 Long term (current) use of aspirin; Z79.01 Long term (current) use of anticoagulants; Z79.899 Other long term (current) drug therapy; I25.2 Old myocardial infarction; F41.8 Other specified anxiety disorders; K21.9 Gastro-esophageal reflux disease without esophagitis; Z95.5 Presence of coronary angioplasty implant and graft; Z90.710 Acquired absence of both cervix and uterus; Z90.49 Acquired absence of other specified parts of digestive tract; Z96.649 Presence of unspecified artificial hip joint; F17.210 Nicotine dependence, cigarettes, uncomplicated
CPT/HCPCS: 80048; 82962; 85025; 99284; A4216

== ENCOUNTER → 2023-03-10 | Outpatient (CLI) | payer MEDICARE, SELFPAY ==
[2023-03-10 12:49] LABS: ALB/GLOB Ratio 0.9 RATIO (0.9-2.4); AST(SGOT) 22 U/L (15-37); Alanine Aminotransfer ALT/SGPT 37 U/L (13-56); Albumin, Serum 3.2 g/dL (3.2-5.0); Alkaline Phosphatase 67 U/L (45-117); Anion Gap 6 (5-15); BUN 16 mg/dL (7-18); BUN/Creat Ratio 19.4 RATIO (10-20); Calcium,Total 8.6 mg/dL (8.5-10.1); Chloride 106 mmol/L (98-107); Creatinine, Serum 0.82 mg/dL (0.55-1.02); EST Glomerular Filtration Rate 73 mL/min (>60); Est Glom Filt Rate - Afr Amer 89 mL/min (>60); Globulin 3.5 g/dL (2.2-4.2); Glucose 246 mg/dL (74-106); Protein, Total 6.7 g/dL (6.4-8.2); Sodium Level 140 mmol/L (136-145)
== END | disposition home or self-care (01) ==
LOC: LAB 11:49
PROVIDERS: PCP Internal Medicine; Referring Provider Internal Medicine; Visit Provider Internal Medicine
DX: E11.9 Type 2 diabetes mellitus without complications (principal)
CPT/HCPCS: 36415; 80053

== ENCOUNTER → 2023-08-01 | Outpatient (CLI) | payer MEDICARE, SELFPAY ==
--- OUTSIDE RECORDS SUMMARY | 2023-08-01 10:26 | XMS RPT_ITS | CCD ---
Author Name Unknown Address [address] [address] [place] [address] Organization [facility] Care Team Providers Care Conveyor Feeder Name Role Phone Debbie Benavides Unavailable Yee Quezada Unavailable Unavailable Debbie Benavides Unavailable Debbie Benavides Unavailable Rajiv Cope Primary Care Provider [phone] Unavailable Primary Care Provider Unavailabl e Medications Current Medications Medication Drug Class(es) Dates Sig (Normalized) Sig (Original) amoxicillin 875 mg oral tablet (2 sources) Penicillin-class Antibacterial Start: 10-02-2021 End: 10-09-2021 take 1 tablet by mouth twice daily amoxicillin (AMOXIL) 875 mg tablet Take 1 tablet by mouth twice daily for 7 days. 14 tablet 0 10/02/2021 10/09/2021 Active Completed/Discontinued Medications Medication Drug Class(es) Dates Sig (Normalized) Sig (Original) acetaminophen 325 mg / HYDROcodone bitartrate 5 mg oral tablet (9 sources) Opioid Agonist Start: 01-10-2020 End: 01-10-2020 hydroCODone-acetam inophen (NORCO) 5-325 MG per tablet 1 tablet Problems Active Problems Problem Classification Problem Date Documented Date Episodic/Chronic Acute cerebrovascular disease (1 source) Cerebrovascular accident; Translations: [Cerebral infarction, unspecified] Onset: 08-27-2011 08-27-2011 Chronic Adjustment disorders (1 source) Adjustment disorder with depressed mood; Translations: [Adjustment disorder with depressed mood] Onset: 06-17-2008 06-17-2008 Chronic Cardiac and circulatory congenital anomalies (4 sources) Ventricular septal defect; Translations: [Ventricular septal defect] Onset: 09-25-2011 09-25-2011 Chronic Cardiac dysrhythmias (9 sources) Paroxysmal atrial fibrillation; Translations: [Atrial flutter] Onset: 06-19-2011 10-14-2013 Chronic Coronary atherosclerosis and other heart disease (13 sources) Atherosclerotic heart disease of [place] coronary artery without angina pectoris; Translations: [Coronary arteriosclerosis in [place] artery] Onset: 04-17-2011 12-01-2015 Chronic Diabetes mellitus with complications (4 sources) Peripheral circulatory disorder associated with type 2 diabetes mellitus; Translations: [Type 2 diabetes mellitus with diabetic peripheral angiopathy without gangrene] Onset: 06-19-2011 06-19-2011 Chronic Diabetes mellitus without complication (1 source) Type 2 diabetes mellitus without complication; Translations: [Type 2 diabetes mellitus without complications] Onset: 10-07-2007 05-10-2015 Chronic Disorders of lipid metabolism (5 sources) Hyperlipidemia; Translations: [Mixed hyperlipidemia] Onset: 10-07-2007 06-19-2011 Chronic Esophageal disorders (1 source) Gastroesophageal reflux disease; Translations: [Gastro-esophageal reflux disease without esophagitis] Onset: 03-01-2005 03-01-2005 Chronic Essential hypertension (5 sources) Hypertensive disorder; Translations: [Benign essential hypertension] Onset: 04-28-2008 06-19-2011 Chronic Other nutritional; endocrine; and metabolic disorders (7 sources) Body mass index (BMI) 31.0-31.9, adult; Translations: [Body mass index (BMI) 30.0-30.9, adult] Onset: 04-20-2013 06-06-2016 Chronic Other nutritional; endocrine; and metabolic disorders (1 source) Body mass index (BMI) 30.0-30.9, adult; Translations: [Body mass index (BMI) 30.0-30.9, adult] Onset: 04-20-2013 04-20-2013 Chronic Other upper respiratory disease (1 source) Chronic rhinitis; Translations: [Chronic rhinitis] Onset: 09-25-2007 09-25-2007 Chronic Otitis media and related conditions (1 source) Acute right otitis media; Translations: [Otitis media, unspecified, right ear] Episodic Substance-related disorders (2 sources) Tobacco user; Translations: [Nicotine dependence, unspecified, uncomplicated] Onset: 03-01-2005 03-01-2005 Chronic Unclassified (3 sources) Percutaneous transluminal coronary angioplasty ; Translations: [Coronary angioplasty status] Onset: 06-19-2011 06-19-2011 Past or Other Problems Problem Classification Problem Date Documented Date Episodic/Chronic Headache; including migraine (1 source) Headache; Translations: [Headache] Onset: 03-01-2005 07-18-2017 Episodic Other and unspecified benign neoplasm (1 source) Polyp of colon; Translations: [Polyp of colon] Onset: 07-28-2013 07-28-2013 Episodic Other connective tissue disease (1 source) Fibromyalgia; Translations: [Fibromyalgia] Onset: 03-01-2005 07-18-2017 Episodic Other female genital disorders (1 source) Abnormal cervical Papanicolaou smear with positive human papillomavirus deoxyribonucleic acid test; Translations: [Abnormal finding on Pap smear, HPV DNA positive] Onset: 03-27-2012 03-27-2012 Episodic Other lower respiratory disease (8 sources) Dyspnea on exertion; Translations: [Other forms of dyspnea] Onset: 04-06-2015 Resolved: 12-01-2015 12-01-2015 Episodic Other screening for suspected conditions (not mental disorders or infectious disease) (1 source) Patient encounter status; Translations: [Encounter for other screening for malignant neoplasm of breast] Onset: 03-05-2007 03-05-2007 Episodic Unclassified (8 sources) FH: Hypertension; Translations: [Family history of ischemic heart disease and other diseases of the circulatory system] Resolved: 04-06-2015 05-12-2014 Episodic Unclassified (6 sources) Preoperative cardiovascular examination ; Translations: [Encounter for preprocedural cardiovascular examination] Onset: 07-06-2013 Resolved: 04-06-2015 04-06-2015 Results Test Name Value Interpretation Reference Range Facil ity Vital Signs Date Time Vital Sign Value Performing Clinician Mario tafoya 10-02-2021 13:08-0400 Body temperature 97.2 [degF] Aquilino Sahu APRN.CNP Work Phone: [facility] 10-02-2021 13:08-0400 Body weight 75.3 kg Aquilino Sahu APRN.CNP Work Phone: [facility] 10-02-2021 13:08-0400 Diastolic blood pressure 78 mm[Hg] Aquilino Sahu APRN.CNP Work Phone: [facility] 10-02-2021 13:08-0400 Heart rate 96 /min Aquilino Luis Alberto DIRECTOR MEDICAL SCIENCE.PAY PER CLICK STRATEGIST Work Phone: [facility] 10-02-2021 13:08-0400 Respiratory rate 18 /min Aquilino Skydave DIRECTOR MEDICAL SCIENCE.PAY PER CLICK STRATEGIST Work Phone: [facility] 10-02-2021 13:08-0400 SaO2% (BldA) [Mass fraction] 97 % Aquilino Skydave DIRECTOR MEDICAL SCIENCE.PAY PER CLICK STRATEGIST Work Phone: [facility] 10-02-2021 13:08-0400 Systolic blood pressure 132 mm[Hg] Aquilino Luis Alberto DIRECTOR MEDICAL SCIENCE.PAY PER CLICK STRATEGIST Work Phone: [facility] 01-10-2020 22:57-0400 BP Diastolic 63 mm[Hg] [facility] 01-10-2020 22:57-0400 BP Systolic 128 mm[Hg] [facility] 01-10-2020 22:57-0400 Pulse (Heart Rate) 81 /min [facility] 01-10-2020 22:57-0400 Pulse Oximetry 93 % [facility] 01-10-2020 22:57-0400 Respiratory Rate 16 /min [facility] 01-10-2020 18:58-0400 Body Temperature 98.2 [degF[facility] 18:54-0400 Height 172.7 cm [facility] 11-27-2016 16:10-0400 Heart rate 54 /min [facility] Work Phone: 11-27-2016 15:48-0400 BMI (Body Mass Index) 30.71 kg/m2 [facility] Work Phone: 11-27-2016 15:48-0400 BP Diastolic 60 mm[Hg] [facility] Work Phone: 11-27-2016 15:48-0400 BP Systolic 120 mm[Hg] [facility] Work Phone: 11-27-2016 15:48-0400 Height 173.99 cm Debbie Benavides [facility] Work Phone: 11-27-2016 15:48-0400 Pulse (Heart Rate) 54 /min Debbie Benavides [facility] Work Phone: 11-27-2016 15:48-0400 Respiratory Rate 20 /min Debbie Benavides [facility] Work Phone: 11-27-2016 15:48-0400 Weight 92.99 kg Debbie Benavides [facility] Work Phone: 06-06-2016 12:55-0500 BMI (Body Mass Index) 31.82 kg/m2 Harumi DeFinnannette [facility] Work Phone: 06-06-2016 12:55-0500 BP Diastolic 68 mm[Hg] Harumi DeFinis [facility] Work Phone: 06-06-2016 12:55-0500 BP Systolic 140 mm[Hg] Harumi DeFinis [facility] Work Phone: 06-06-2016 12:55-0500 BSA (Body Surface Area) 2.11 m2 Harumi DeFinis [facility] Work Phone: 06-06-2016 12:55-0500 Pulse (Heart Rate) 52 /min Harumi DeFinis [facility] Work Phone: 06-06-2016 12:55-0500 Respiratory Rate 18 /min Harumi DeFinis [facility] Work Phone: 06-06-2016 12:55-0500 Weight 96.34 kg Harumi DeFinis [facility] Work Phone: 12-06-2015 16:13-0400 Height 173.99 cm Harumi DeFinis [facility] Work Phone: 10-14-2012 13:14-0400 Heart rate 448 ms Debbie Benavides [facility] Work Phone: Encounters Encounter Date Encounter Type Care Provider Facility Start: 10-02-2021 End: 10-02-2021 Patient encounter procedure Aquilino Sahu APRN.PAY PER CLICK STRATEGIST Work Phone: [facility] Procedures Date Procedure Procedure Detail Performing Clinician Start: 01-10-2020 Radiography of hip Taco Berger Escue Work Phone: Start: 04-25-2017 Mammography Aquilino Skydave DIRECTOR MEDICAL SCIENCE.PAY PER CLICK STRATEGIST Work Phone: Start: 01-27-2017 Adult depression screening assessment Aquilino Betancourtmagalis DIRECTOR MEDICAL SCIENCE.PAY PER CLICK STRATEGIST Work Phone: Start: 11-27-2016 End: 11-27-2016 Follow Up Appt 6 months Aleks Orozco Start: 11-27-2016 End: 11-27-2016 ETHAN Lockett MD Start: 06-06-2016 End: 06-06-2016 Dietary management education, guidance, and counseling Debbie Benavides Start: 06-06-2016 End: 06-06-2016 DIRECT SERVICE PROVIDER Melanie Baig PA-C Work Phone: Start: 06-06-2016 End: 06-06-2016 Follow Up Appt 6 months Melanie Baig PA-C Work Phone: Start: 12-06-2015 End: 12-06-2015 Follow Up Appt 6 months Aleks Orozco Start: 12-06-2015 End: 12-06-2015 ETHAN Lockett MD Start: 04-06-2015 End: 04-07-2015 Documentation of current medications Seferino Lockett MD Start: 04-06-2015 End: 04-06-2015 Follow Up Appt 6 months Aleks Orozco Start: 04-06-2015 End: 04-06-2015 ETHAN Lockett MD Start: 04-06-2015 End: 04-07-2015 Smoking cessation education Seferino Lockett MD Start: 02-06-2015 Mc Sahu APRN.PAY PER CLICK STRATEGIST Work Phone: Start: 12-27-2014 End: 12-28-2014 Documentation of current medications Seferino Lockett MD Start: 12-27-2014 End: 12-27-2014 Follow Up Appt 6 months Aleks Orozco Start: 12-27-2014 End: 12-27-2014 ETHAN Lockett MD Start: 05-12-2014 End: 05-12-2014 Follow Up Appt 6 months Aleks Orozco Start: 05-12-2014 End: 05-12-2014 ETHAN Lockett MD Start: 10-20-2013 End: 10-20-2013 ZOHAIB Baig PA-C Work Phone: Start: 10-20-2013 End: 10-20-2013 Follow Up Appt 6 months Melanie Baig PA-C Work Phone: Start: 07-06-2013 End: 10-20-2013 Nuclear stress test -exercise Seferino Lockett MD Start: 07-06-2013 End: 04-06-2015 Preoperative cardiovascular examination PRE-OPERATIVE CARDIOVASCULAR EXAMINATION Debbie Benavides Start: 04-20-2013 End: 04-20-2013 Follow Up Appt 6 months Aleks Orozco Start: 04-20-2013 End: 04-20-2013 ETHAN Lockett MD Start: 10-14-2012 End: 11-19-2012 *Hepatic Function Panel Melanie Baig PA-C Work Phone: Start: 10-14-2012 End: 10-14-2012 ZOHAIB Baig PA-C Work Phone: Start: 10-14-2012 End: 10-14-2012 Electrocardiogram, complete Melanie Baig PA-C Work Phone: Start: 10-14-2012 End: 10-14-2012 Follow Up Appt 6 months Melanie Baig PA-C Work Phone: Start: 10-14-2012 End: 11-19-2012 Lipid panel [AGGREGATE] Melanie Baig PA-C Work Phone: Start: 04-17-2012 End: 04-17-2012 Follow Up Appt 6 months Aleks Orozco Start: 09-25-2011 End: 10-09-2011 Echocardiography Seferino Lockett MD Start: 09-25-2011 End: 09-25-2011 Follow Up Appt 6 months Aleks Orozco Start: 07-11-2011 End: 10-03-2011 Cardiac Rehab Seferino Lockett MD Start: 06-21-2011 End: 06-21-2011 Electrocardiogram, complete Seferino Lockett MD Start: 06-21-2011 End: 06-21-2011 Follow Up Appt 3 months Aelks Orozco Start: 06-19-2011 Percutaneous transluminal coronary angioplasty PERCUTANEOUS TRANSLUMINAL CORONARY ANGIOPLASTY, HX OF Debbie Benavides Plan of Treatment Date Care Activity Detail Author Start: 02-07-2022 Influenza vaccination INFLUENZA (Season Ended) [facility] Start: 06-09-2021 ADVANCE DIRECTIVE DISCUSSION ADVANCE DIRECTIVE DISCUSSION [facility] Start: 02-08-2020 Influenza vaccination INFLUENZA VACCINE (#1) [facility] Start: 2019 BONE DENSITY BONE DENSITY [facility] Start: 2019 Pneumococcal vaccination PNEUMOCOCCAL VACCINE SERIES (1 of 2 - PCV13) [facility] Start: 2019 PNEUMOVAX AGE 65 AND OVER WITH 5YR LOOKBACK (#1) PNEUMOVAX AGE 65 AND OVER WITH 5YR LOOKBACK (#1) [facility] Start: 10-20-2018 ANNUAL PCP TEAM CHRONIC DISEASE VISIT ANNUAL PCP TEAM CHRONIC DISEASE VISIT [facility] Start: 08-25-2018 Hepatitis C antibody, confirmatory test DILATED RETINAL EXAM [facility] Start: 07-18-2018 Hepatitis B surface antibody level LDL CHOLESTEROL [facility] Start: 04-25-[address] [facility] Start: 04-18-2018 Hepatitis B screening URINE ALBUMIN:CREATININE RATIO [facility] Start: 02-10-2018 Hemoglobin A1c/Hemoglobin.total in Blood HBA1C [facility] Start: 02-06-[address] [facility] Start: 02-06-2018 COLORECTAL CANCER SCREENING COLORECTAL CANCER SCREENING [facility] Start: 01-27-2018 Adult depression screening assessment DEPRESSION SCREENING [facility] Start: 06-12-2017 End: 06-12-2017 Appointment Appointment [facility] Work Phone: Start: 11-27-2016 End: 11-27-2016 Appointment Appointment [facility] Work Phone: Start: 11-27-2016 End: 11-27-2016 Chest x-ray X-Ray, Chest, PA & Lateral [facility] Work Phone: Start: 11-27-2016 End: 11-27-2016 Follow Up Appt 6 months Follow Up Appt 6 months [facility] Work Phone: Start: 11-27-2016 End: 11-27-2016 MMM MMM [facility] Work Phone: Start: 06-06-2016 End: 06-06-2016 DIRECT SERVICE PROVIDER DIRECT SERVICE PROVIDER [facility] Work Phone: Start: 06-06-2016 End: 06-06-2016 Follow Up Appt 6 months Follow Up Appt 6 months [facility] Work Phone: Start: 12-06-2015 End: 12-06-2015 Follow Up Appt 6 months Follow Up Appt 6 months [facility] Work Phone: Start: 12-06-2015 End: 12-06-2015 MMM MMM [facility] Work Phone: Start: 05-12-2015 3 comp foot exam completed DIABETIC FOOT EXAM [facility] Start: 04-06-2015 End: 04-06-2015 Follow Up Appt 6 months Follow Up Appt 6 months [facility] Work Phone: Start: 04-06-2015 End: 04-06-2015 MMM MMM [facility] Work Phone: Start: 12-27-2014 End: 12-27-2014 Follow Up Appt 6 months Follow Up Appt 6 months [facility] Work Phone: Start: 12-27-2014 End: 12-27-2014 MMM MMM [facility] Work Phone: Start: 05-12-2014 End: 05-12-2014 Follow Up Appt 6 months Follow Up Appt 6 months [facility] Work Phone: Start: 05-12-2014 End: 05-12-2014 MMM MMM [facility] Work Phone: Start: 10-20-2013 End: 10-20-2013 DIRECT SERVICE PROVIDER DIRECT SERVICE PROVIDER [facility] Work Phone: Start: 10-20-2013 End: 10-20-2013 Follow Up Appt 6 months Follow Up Appt 6 months [facility] Work Phone: Start: 07-06-2013 End: 07-06-2013 Nuclear stress test -exercise Nuclear stress test -exercise [facility] Work Phone: Start: 04-20-2013 End: 04-20-2013 Follow Up Appt 6 months Follow Up Appt 6 months [facility] Work Phone: Start: 04-20-2013 End: 04-20-2013 MMM MMM [facility] Work Phone: Start: 04-08-2013 FECAL OCCULT BLOOD FECAL OCCULT BLOOD [facility] Start: 10-14-2012 End: 11-19-2012 *Hepatic Function Panel *Hepatic Function Panel [facility] Work Phone: Start: 10-14-2012 End: 10-14-2012 DIRECT SERVICE PROVIDER DIRECT SERVICE PROVIDER [facility] Work Phone: Start: 10-14-2012 End: 10-14-2012 Electrocardiogram, complete EKG (In office) [facility] Work Phone: Start: 10-14-2012 End: 10-14-2012 Follow Up Appt 6 months Follow Up Appt 6 months [facility] Work Phone: Start: 10-14-2012 End: 11-19-2012 Lipid panel [AGGREGATE] *Lipid Profile [facility] Work Phone: Start: 04-17-2012 End: 04-17-2012 Follow Up Appt 6 months Follow Up Appt 6 months [facility] Work Phone: Start: 09-25-2011 End: 09-25-2011 Echocardiography Echocardiogram (complete) [facility] Work Phone: Start: 09-25-2011 End: 09-25-2011 Follow Up Appt 6 months Follow Up Appt 6 months [facility] Work Phone: Start: 07-11-2011 End: 08-08-2011 Cardiac Rehab Cardiac Rehab [facility] Work Phone: Start: 06-21-2011 End: 06-21-2011 Electrocardiogram, complete EKG (In office) [facility] Work Phone: Start: 06-21-2011 End: 06-21-2011 Follow Up Appt 3 months Follow Up Appt 3 months [facility] Work Phone: Start: 09-14-2008 Urine microalbumin profile DTAP,TDAP,TD (2 - Tdap) [facility] Start: 2004 Colonoscopy COLORECTAL CANCER SCREENING DISCUSSION [facility] Start: 2004 SHINGRIX VACCINE (1 of 2) SHINGRIX VACCINE (1 of 2) [facility] Start: 2004 Zoster vaccine hzv live for subcutaneous use ZOSTER (SHINGLES) VACCINE (1 of 2) [facility] Start: 1999 COLOGUARD (FIT-DNA) COLOGUARD (FIT-DNA) [facility] Start: [address] [facility] Start: [address] [facility] Start: 1994 Fasting lipid profile LIPID SCREENING [facility] Start: 1994 Screening mammography MAMMOGRAM SCREENING DISCUSSION [facility] Start: 1975 Screening for malignant neoplasm of cervix CERVICAL CANCER SCREENING DISCUSSION [facility] Start: 1973 Third diphtheria, tetanus and acellular pertussis (DTaP) vaccination TDAP (ADULT) [facility] Start: 1972 BP CONTROLLED (<130/80) BP CONTROLLED (<130/80) [facility] Start: 1972 Tetanus vaccination TETANUS [facility] Start: 1959 COVID-19 VACCINE (1) COVID-19 VACCINE (1) [facility] Start: 1954 Hepatitis C antibody, confirmatory test HEPATITIS C VIRUS SCREENING [facility] Start: 1954 Screening for osteoporosis DEXA SCAN DISCUSSION [facility] Immunizations Immunization Date Immunization Notes Care Provider Chely rosales 04-25-2017 influenza, injectabl e, quadrivalent, contains preservative Aquilino Pendlebury DIRECTOR MEDICAL SCIENCE.PAY PER CLICK STRATEGIST Work Phone: [facility] 04-25-2017 influenza virus vacc ine, unspecified formulation Tacomariaa Baer [facility] 05-12-2014 influenza, seasonal, injectable Aquilino Pendlebury DIRECTOR MEDICAL SCIENCE.PAY PER CLICK STRATEGIST Work Phone: [facility] 03-09-2013 influenza virus vacc ine, unspecified formulation Aquilino Pendlebury DIRECTOR MEDICAL SCIENCE.PAY PER CLICK STRATEGIST Work Phone: [facility] 03-09-2013 influenza, seasonal, injectable Aquilino Pendlebury DIRECTOR MEDICAL SCIENCE.PAY PER CLICK STRATEGIST Work Phone: [facility] Work Phone: 03-09-2013 pneumococcal polysaccharide vaccine, 23 valent Aquilino Pendlebury DIRECTOR MEDICAL SCIENCE.PAY PER CLICK STRATEGIST Work Phone: [facility] Work Phone: 04-14-2012 influenza virus vacc ine, unspecified formulation Aquilino Pendlebury DIRECTOR MEDICAL SCIENCE.PAY PER CLICK STRATEGIST Work Phone: [facility] Work Phone: 05-10-2010 influenza virus vacc ine, unspecified formulation Aquilino Pendlebury DIRECTOR MEDICAL SCIENCE.PAY PER CLICK STRATEGIST Work Phone: [facility] Work Phone: 04-28-2008 influenza virus vacc ine, unspecified formulation Aquilino Skydave DIRECTOR MEDICAL SCIENCE.PAY PER CLICK STRATEGIST Work Phone: [facility] 04-28-2008 pneumococcal polysaccharide vaccine, 23 valent Aquilino Skydave DIRECTOR MEDICAL SCIENCE.PAY PER CLICK STRATEGIST Work Phone: [facility] Work Phone: 09-14-1998 diphtheria and tetan us toxoids, adsorbed for pediatric use Aquilino Skydave DIRECTOR MEDICAL SCIENCE.PAY PER CLICK STRATEGIST Work Phone: [facility] Work Phone: Payers Date Payer Category Payer Medicare HU[employer]NA MEDICARE HUMANA GOLD PLUS [id number] 2021-Present [phone] [address] [address] [place] [address] HMO [id number] 2020 Medicare MEDICARE MEDICAR E A AND B [id number] 2020-Present [place] [id number] 2019 Private Health Insurance [employer]ET[employer] A ETNA MEDICARE SUPPLEMENT [id number] 2019-Present [phone] [address] [address] [place] [address] Indemnity [id number] Social History Date Type Detail Facility Start: 01-10-2020 Tobacco smoking stat [facility] Current every day smoker [facility] Start: 01-10-2020 End: 08-03-2020 Tobacco use and exposure Never used [facility] Start: 01-10-2020 Alcohol intake Ex-drinker (finding) [facility] Start: 1955 Sex Assigned At Not on file A [employer] Exposure to SARS-CoV -2 (event) Unable to assess [employer] Start: 08-03-2020 Tobacco smoking stat us NHIS Ex-smoker [facility] History of tobacco use Cigarette Smoker [facility] Start: 08-03-2020 Cigarettes smoked cu rrent (pack per day) - Reported 0.5 [facility] Start: 10-02-2021 Alcohol intake Current drinke r of alcohol (finding) [facility] Start: 02-28-2014 History SDOH Alcohol Comment rare [facility] Start: 03-09-2013 Tobacco Comment smoking 1/[address] [facility] Start: 09-22-2021 End: 10-02-2021 Exposure to SARS-CoV-2 (event) Not sure [facility] Medical Equipment Procedure Code Equipment Code Equipment Origin al Text Equipment Identifier Dates Start: 07-30-2016 Goals Date Patient Goal Desired Activity /State Progress note 10-02-2021 Note Date & Type Note Facility 10-02-2021 Note HNO ID: [id number] Author: Aquilino Sahu APRN.PAY PER CLICK STRATEGIST Service: ? Author Type: Nurse Practitioner Type: Progress Notes Filed: 10/02/2021 1:46 PM Note Text: Subjective HPI Nontoxic-appearing female presents urgent care for right ear pain. Duration of symptoms 1 week. Associated symptoms right ear pain nasal congestion and sore throat. Denies any OTC medication use today. Did use OTC few days. This did help slightly. History of otitis media in the past this feels similar. Denies any significant pain currently. States hearing does feel slightly muffled. Denies any fever body aches chills productive cough chest pain shortness of breath pleuritic pain hemoptysis nausea vomiting abdominal pain change in bowel or bladder habits. Past medical history prescription medication use allergies reviewed. .Patient presents with: Ear Pain: right migrating into glands x 1 week PAST MEDICAL HISTORY Diagnosis Date - Colon polyp 08/20/13 40cm - Coronary artery disease - CVA (cerebral infarction) 03/2011 - Diabetes mellitus type 2, controlled, without complications ([facility]) 10/07/2007 Onset 09/14 - Esophagitis - Headache(784.0) - Hernia of unspecified site of abdominal cavity without mention of obstruction or gangrene hiatal - HYPERLIPIDEMIA NEC/NOS 10/07/2007 Onset 09/14. - Hypertension - MD (myocardial infarction) (HCC) 03/19 - Myalgia and myositis, unspecified - Other specified gastritis - Personal history of colonic polyps 02/06/2015 - Snoring - Stroke (HCC) PAST SURGICAL HISTORY Procedure Laterality Date - APPENDECTOMY - CARDIOVERSION 04/06/2011 Atrial flutter - CHOLECYSTECTOMY 86 Cholecystectomy - COLONOSCOPY FLX DX W/COLLJ SPEC WHEN PFRMD 06/24/2013 Colonoscopy - COLSC FLX W/REMOVAL LESION BY HOT BX FORCEPS 02/06/2015 Repeat 2018 - CORONARY ENDARTERCOMY OPEN ANY METHOD 04/04/2011 Angioplasty; bare metal stent to L circumflex - ESOPHAGOGASTRODUODENOSCOPY TRANSORAL DIAGNOSTIC 07/12/98 EGD - ESOPHAGOGASTRODUODENOSCOPY TRANSORAL DIAGNOSTIC 09/14/01 EGD - ESOPHAGOGASTRODUODENOSCOPY TRANSORAL DIAGNOSTIC 06/24/2013 EGD - HEART SURGERY HX - LAPAROSCOPY COLECTOMY PARTIAL W/ANASTOMOSIS 08/20/13 - LAPS MOBLJ SPLENIC FLXR PFRMD W/PRTL COLECTOMY 08/20/13 - LIG/TRNSXJ FLP TUBE ABDL/VAG APPR UNI/BI Tubal ligation - PAST SURGICAL HISTORY OF - REP TET/FALLOT; CLOS PREV SHUNT 94 - REPR ASD W BYPASS ALLERGIES Patient has no known allergies. MEDICATIONS mirabegron (MYRBETRIQ) 50 mg Tb24 Take 1 tablet by mouth once daily. oxybutynin ER (DITROPAN XL) 10 mg 24 hr tablet Please specify directions, refills and quantity DULoxetine (CYMBALTA) 60 mg capsule Take 60 mg by mouth once daily. cyclobenzaprine (FLEXERIL) 10 mg tablet Take 1 tablet by mouth three times daily as needed for up to 5 days. ibuprofen (MOTRIN) 800 mg tablet Take 1 tablet by mouth every 8 hours as needed. FOR PAIN. benzonatate (TESSALON PERLE) 100 mg capsule Take 1 capsule by mouth three times daily as needed. glipiZIDE (GLUCOTROL XL) 5 mg 24 hr tablet TAKE 2 TABLETS BY MOUTH EVERY MORNING AND TAKE 2 TABLETS BY MOUTH EVERY EVENING sertraline (ZOLOFT) 100 mg tablet TAKE 2 TABLETS BY MOUTH ONCE DAILY. metoprolol tartrate, short acting, (LOPRESSOR) 50 mg tablet TAKE 1 TABLET BY MOUTH TWICE DAILY. traZODone (DESYREL) 100 mg tablet TAKE 1 TABLET BY MOUTH DAILY AT BEDTIME. dimenhyDRINATE (DRAMAMINE) 50 mg tablet Take 1 tablet by mouth three times daily as needed. LORazepam (ATIVAN) 0.5 mg tab TAKE 1 TABLET BY MOUTH 3 TIMES DAILY NEEDED FOR ANXIETY canagliflozin (INVOKANA) 100 mg tab Take 1 tablet by mouth daily before breakfast. gabapentin (NEURONTIN) 100 mg capsule TAKE 1 CAPSULE BY MOUTH THREE TIMES DAILY. topiramate (TOPAMAX) 50 mg tablet Take 2 tablets by mouth daily at bedtime. cyclobenzaprine (FLEXERIL) 10 mg tablet Take 1 tablet by mouth three times daily as needed for Muscle Spasm. Omeprazole 40 mg capsule TAKE 1 CAPSULE DAILY turmeric root extract 500 mg cap Take 1 capsule by mouth once daily. ELIQUIS 5 mg tab(s) Take 1 tablet by mouth twice daily. blood sugar diagnostic (BLOOD GLUCOSE TEST) test strip Test blood sugar one time daily. Dx: Type 2 DM - Uncontrolled E11.65 Insulin: No propranolol ER (INDERAL LA) 60 mg 24 hr capsule TAKE 1 CAPSULE DAILY sitaGLIPtin (JANUVIA) 100 mg tablet Take 1 tablet by mouth once daily. lisinopril 2.5 mg tablet Take 1 tablet by mouth once daily. Insulin Safety Staples, Disp, (BD AUTOSHIELD PEN NEEDLE) 29 gauge x 3/16 ndle Use one needle for each dose. 2/day atorvastatin (LIPITOR) 40 mg tablet TAKE 1 TABLET DAILY lancets (ONE TOUCH DELICA) 33 gauge [facility] UAD to test blood sugar(s) 1 times daily. Dx: 11.9 Insulin: No multivitamin with minerals (HAIR,SKIN AND NAILS) tablet Take 1 tablet by mouth once daily. COMPOUNDED PRESCRIPTION fish oil 1290mg omega 3 900mg - take 2 every morning Aspirin 81 mg ORAL Tab Take 1 tablet by (more content not included)... [facility] History of Present illness Narrative 10-02-2021 Aquilino Sahu APRN.[facility] - 10/02/2021 1:14 PM EDT Note Date & Type Note Facility 10-02-2021 History of Presen t illness Narrative Subjective HPI Nontoxic-appearing female presents urgent care for right ear pain. Duration of symptoms 1 week. Associated symptoms right ear pain nasal congestion and sore throat. Denies any OTC medication use today. Did use OTC few days. This did help slightly. History of otitis media in the past this feels similar. Denies any significant pain currently. States hearing does feel slightly muffled. Denies any fever body aches chills productive cough chest pain shortness of breath pleuritic pain hemoptysis nausea vomiting abdominal pain change in bowel or bladder habits. Past medical history prescription medication use allergies reviewed. .Patient presents with: Ear Pain: right migrating into glands x 1 week PAST MEDICAL HISTORY Diagnosis Date Colon polyp 08/20/13 40cm Coronary artery disease CVA (cerebral infarction) 03/2011 Diabetes mellitus type 2, controlled, without complications ([facility]) 10/07/2007 Onset 09/14 Esophagitis Headache(784.0) Hernia of unspecified site of abdominal cavity without mention of obstruction or gangrene hiatal HYPERLIPIDEMIA NEC/NOS 10/07/2007 Onset 09/14. Hypertension MD (myocardial infarction) ([facility]) 03/19 Myalgia and myositis, unspecified Other specified gastritis Personal history of colonic polyps 02/06/2015 Snoring Stroke ([facility]) PAST SURGICAL HISTORY Procedure Laterality Date APPENDECTOMY CARDIOVERSION 04/06/2011 Atrial flutter CHOLECYSTECTOMY 86 Cholecystectomy COLONOSCOPY FLX DX W/COLLJ SPEC WHEN PFRMD 06/24/2013 Colonoscopy COLSC FLX W/REMOVAL LESION BY HOT BX FORCEPS 02/06/2015 Repeat 2018 CORONARY ENDARTERCOMY OPEN ANY METHOD 04/04/2011 Angioplasty; bare metal stent to L circumflex ESOPHAGOGASTRODUODENOSCOPY TRANSORAL DIAGNOSTIC 07/12/98 EGD ESOPHAGOGASTRODUODENOSCOPY TRANSORAL DIAGNOSTIC 09/14/01 EGD ESOPHAGOGASTRODUODENOSCOPY TRANSORAL DIAGNOSTIC 06/24/2013 EGD HEART SURGERY HX LAPAROSCOPY COLECTOMY PARTIAL W/ANASTOMOSIS 08/20/13 LAPS MOBLJ SPLENIC FLXR PFRMD W/PRTL COLECTOMY 08/20/13 LIG/TRNSXJ FLP TUBE ABDL/VAG APPR UNI/BI Tubal ligation PAST SURGICAL HISTORY OF REP TET/FALLOT; CLOS PREV SHUNT 94 REPR ASD W BYPASS ALLERGIES Patient has no known allergies. MEDICATIONS mirabegron (MYRBETRIQ) 50 mg Tb24 Take 1 tablet by mouth once daily. oxybutynin ER (DITROPAN XL) 10 mg 24 hr tablet Please specify directions, refills and quantity DULoxetine (CYMBALTA) 60 mg capsule Take 60 mg by mouth once daily. cyclobenzaprine (FLEXERIL) 10 mg tablet Take 1 tablet by mouth three times daily as needed for up to 5 days. ibuprofen (MOTRIN) 800 mg tablet Take 1 tablet by mouth every 8 hours as needed. FOR PAIN. benzonatate (TESSALON PERLE) 100 mg capsule Take 1 capsule by mouth three times daily as needed. glipiZIDE (GLUCOTROL XL) 5 mg 24 hr tablet TAKE 2 TABLETS BY MOUTH EVERY MORNING AND TAKE 2 TABLETS BY MOUTH EVERY EVENING sertraline (ZOLOFT) 100 mg tablet TAKE 2 TABLETS BY MOUTH ONCE DAILY. metoprolol tartrate, short acting, (LOPRESSOR) 50 mg tablet TAKE 1 TABLET BY MOUTH TWICE DAILY. traZODone (DESYREL) 100 mg tablet TAKE 1 TABLET BY MOUTH DAILY AT BEDTIME. dimenhyDRINATE (DRAMAMINE) 50 mg tablet Take 1 tablet by mouth three times daily as needed. LORazepam (ATIVAN) 0.5 mg tab TAKE 1 TABLET BY MOUTH 3 TIMES DAILY NEEDED FOR ANXIETY canagliflozin (INVOKANA) 100 mg tab Take 1 tablet by mouth daily before breakfast. gabapentin (NEURONTIN) 100 mg capsule TAKE 1 CAPSULE BY MOUTH THREE TIMES DAILY. topiramate (TOPAMAX) 50 mg tablet Take 2 tablets by mouth daily at bedtime. cyclobenzaprine (FLEXERIL) 10 mg tablet Take 1 tablet by mouth three times daily as needed for Muscle Spasm. Omeprazole 40 mg capsule TAKE 1 CAPSULE DAILY turmeric root extract 500 mg cap Take 1 capsule by mouth once daily. ELIQUIS 5 mg tab(s) Take 1 tablet by mouth twice daily. blood sugar diagnostic (BLOOD GLUCOSE TEST) test strip Test blood sugar one time daily. Dx: Type 2 DM - Uncontrolled E11.65 Insulin: No propranolol ER (INDERAL LA) 60 mg 24 hr capsule TAKE 1 CAPSULE DAILY sitaGLIPtin (JANUVIA) 100 mg tablet Take 1 tablet by mouth once daily. lisinopril 2.5 mg tablet Take 1 tablet by mouth once daily. Insulin Safety Staples, Disp, (BD AUTOSHIELD PEN NEEDLE) 29 gauge x 16 ndle Use one needle for each dose. 2/day atorvastatin (LIPITOR) 40 mg tablet TAKE 1 TABLET DAILY lancets (ONE TOUCH DELICA) 33 gauge [facility] UAD to test blood sugar(s) 1 times daily. Dx: 11.9 Insulin: No multivitamin with minerals (HAIR,SKIN & NAILS) tablet Take 1 tablet by mouth once daily. COMPOUNDED PRESCRIPTION fish oil 1290mg omega 3 900mg - take 2 every morning Aspirin 81 mg ORAL Tab Take 1 tablet by mouth once daily. Take with food. B-complex with vitamin C (SUPER B COMPLEX-VITAMIN C) ORAL tablet Take 1 tablet by mouth once daily. Potassium Gluconate 595 (99) mg ORAL Tab Take 1 tablet by mouth. multivit,ca,iron,min/fa/sfr039(ONE-A -DAY WEIGHTSMART 200 MG-18 MG-0.4 MG TAB) as directed. apczovxh-eckduyodm-ikolkuxpwljahm (CORTISPORIN) 3.5-10,000-1 mg/mL-unit/mL-% otic suspension Use 3 Drops in the right ear four times daily. FAMILY HISTORY Problem Relation Age of Onset Cancer Mother 57 OVARIAN Emphysema Father Heart Father Breast Cancer Sister Heart Maternal Grandmother ENLARGED Diabetes Maternal Grandmother Thyroid Maternal Grandmother goiter Coronary Artery Disease Maternal Grandmother Hypertension Maternal Grandfather Thyroid Maternal Aunt Alcohol/Drug Maternal Uncle Alcohol/Drug Paternal Uncle Alcohol/Drug Brother Breast Cancer Maternal Aunt Cancer Sister brain, and bone Colon Cancer Maternal Aunt Social History Tobacco Use Smoking status: Former Smoker Packs/day: 0.50 Years: 35.00 Pack years: 17.50 Types: Cigarettes Smokeless tobacco: Never Used Tobacco comment: smoking 1/2 or less Vaping Use Vaping Use: Never used Substance Use Topics Alcohol use: Yes Comment: rare Drug use: No BP 132/78 Pulse 96 Temp 36.2 C (97.2 F) Resp 18 Wt 75.3 kg (166 lb) SpO2 97% BMI 25.24 kg/m Review of Systems Constitutional: Negative for chills, fever and malaise/fatigue. HENT: Positive for congestion and ear pain. Negative for ear discharge, sinus pain and sore throat. Eyes: Negative for blurred vision, pain, discharge and redness. Respiratory: Negative for cough, hemoptysis, sputum production, shortness of breath, wheezing and stridor. Cardiovascular: Negative for chest pain. Gastrointestinal: Negative for abdominal pain, diarrhea, nausea and vomiting. Musculoskeletal: Negative for myalgias. Skin: Negative for itching and rash. Neurological: Negative for dizziness and headaches. Objective Physical Exam Vitals and nursing note reviewed. Constitutional: General: She is not in acute distress. Appearance: She is not diaphoretic. HENT: Head: Normocephalic and atraumatic. Jaw: No trismus. Right Ear: Hearing, ear canal and external ear normal. No decreased hearing noted. No drainage, swelling or tenderness. No mastoid tenderness. Tympanic membrane is erythematous and bulging. Tympanic membrane is not perforated. Left Ear: Hearing, tympanic membrane, ear canal and external ear normal. No decreased hearing noted. No drainage, swelling or tenderness. There is impacted cerumen. No mastoid tenderness. Mouth/Throat: Lips: Wolsey. Mouth: Mucous membranes are moist. Pharynx: Oropharynx is clear. Uvula midline. No pharyngeal swelling, oropharyngeal exudate, posterior oropharyngeal erythema or uvula swelling. Eyes: General: Right eye: No discharge. Left eye: No discharge. Conjunctiva/sclera: Conjunctivae normal. Pupils: Pupils are equal, round, and reactive to light. Cardiovascular: Rate and Rhythm: Normal rate and regular rhythm. Heart sounds: Normal heart sounds. Pulmonary: Effort: Pulmonary effort is normal. No tachypnea, accessory muscle usage or respiratory distress. Breath sounds: Normal breath sounds. No stridor. No wheezing, rhonchi or rales. Chest: Chest wall: No tenderness. Abdominal: Palpations: Abdomen is soft. Tenderness: There is no abdominal tenderness. Musculoskeletal: General: No tenderness. Normal range of motion. Cervical back: Normal range of motion and neck supple. No rigidity or tenderness. Lymphadenopathy: Head: Right side of head: No submental, submandibular, tonsillar, preauricular, posterior auricular or occipital adenopathy. Left side of head: No submental, submandibular, tonsillar, preauricular, posterior auricular or occipital adenopathy. Cervical: No cervical adenopathy. Right cervical: No superficial or posterior cervical adenopathy. Left cervical: No superficial or posterior cervical adenopathy. Skin: General: Skin is warm and dry. Findings: No rash. Neurological: Mental Status: She is alert and oriented to person, place, and time. ASSESSMENT/PLAN: 1. Acute otitis media, right - ICD9: 382.9, ICD10: H66.91 Patiently had a mildly erythematous bulging right TM. Patiently placed on amoxicillin. Has tolerated this antibiotic in the past. Denies history of kidney or liver disease. Last recorded CMP through [facility] was GFR greater than 60. Patient was educated on supportive therapies. Patient will follow up with primary care provider as needed. Patient was instructed to immediately proceed to emergency room for any new, worsening, or symptoms lasting longer than anticipated. The patient's clinical presentation is otherwise unremarkable at this time. Based on exam and clinical finding, the patient is stable for discharge. Plan of care was discussed with patient. Patient verbalizes understanding and agrees to plan of care. This note was generated using [employer] software. It may contain errors in wording, punctuation, or spelling. Aquilino Sahu APRN.[facility] documented in this encounter [facility] Progress note 10-27-2020 Note Date & Type Note Facility 10-27-2020 Note HNO ID: [id number] Author: Suad Camacho MD Service: ? Author Type: Physician Type: Progress Notes Filed: 10/27/2020 2:51 PM Note Text: Female Pelvic Medicine AND Reconstructive Surgery Consult TeleHealth - New Patient Consultation Visit I have discussed the risks, benefits, and limitations of receiving care virtually with the patient. The patient expresses understanding and is willing to move forward. CHIEF COMPLAINT: Amalia Love is a 65 year old (C/Sec x 1, FAVD x 1, x2) female with T2DM, hx of stroke, hx of MD with dementia who presents for consultation requested by Yenny Valerio CNP for an opinion regarding Urinary Incontinence. HISTORY OF PRESENT ILLNESS: 65 year old (C/Sec x 1, FAVD x 1, x2) female with T2DM, hx of stroke, hx of MD with bothersome urinary urgency, frequency, nocturia and urinary incontinence (UUI>MICHELLE) Pt sitting with daughter Reina who is power of psychological tests sales agent. Pt reports that she has had bothersome urinary symptoms for many years but has worsened recently. Pt was started on Vesicare 10mg but feels like symptoms have not improved. Pt has never seen a urologist or urogynecologist for these issues. UROGYNECOLOGIC REVIEW OF SYSTEMS: - Vaginal bulge: denies - Daily Fluids: 1. Coffee, Caffeine: 2-3 cups of caffeinated 2. Water: 3-4 glasses of watter 3. Other: 4-5 sodas, no alcohol - Frequency: DTF every 30 min - Nocturia: NTF every 1 hour - Urinary urgency: daily - Urge incontinence: daily (UUI>MICHELLE) - Stress incontinence: daily - Pads: pads that - Pain/Discomfort: denies - Voiding symptoms: denies hesitancy, changes in stream or sensation of incomplete emptying, splinting to urinate - Urinary tract infections or Pyelonephritis: denies - Stones: denies - Hematuria: denies - Malignancy or pediatric voiding dysfunction: denies - Abnormal vaginal bleeding: denies - Abnormal vaginal discharge: denies - Vaginal dryness: denies - Bowel symptoms: BM every day , denies constipation, diarrhea, fecal incontinence, fecal urgency, stool trapping symptoms, splinting to have a BM, blood in stool, Last colonoscopy ~ 4 years (benign polyp) - Sexual activity: not sexually actve OTHER RELATED REVIEW OF SYSTEMS: - Neurologic: denies numbness, cognitive dysfunction, spinal injury, neuropathic pain - Constitutional: denies weight loss, fever, generalized weakness - Endocrine: denies hot flashes - Psychiatric: denies anxiety, depression Medical and Symptom 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 She has no history of an abnormal mammogram LMP: No LMP recorded. Patient is postmenopausal.; Menopause [age] years old: Menstrual history: NA; Deliveries: C/Sec x 1, FAVD x 1, x 43(twins, 1 vaginal, 1 ) History of third or fourth degree laceration: No Weight of largest baby: 8lbs 8oz Sexual function Sexually active: Not sexually active PAST SURGICAL HISTORY Procedure Laterality Date - APPENDECTOMY - CARDIOVERSION 04/06/2011 Atrial flutter - COLONOSCOP W/ OR W/O BRSH SPEC 06/24/2013 Colonoscopy - COLONS W/REM POLYP HT BX 02/06/2015 Repeat 2018 - EGD W/O OR W/BRUSH/WASH 07/12/98 EGD - EGD W/O OR W/BRUSH/WASH 09/14/01 EGD - EGD W/O OR W/BRUSH/WASH 06/24/2013 EGD - HEART SURGERY HX - LAP, SURG MOBIL SPLENIC FL DUR PTL COLECTOMY 08/20/13 - LAPAROSCOPIC HEMICOLECTOMY 08/20/13 - LIGATE FALLOPIAN TUBE Tubal ligation - OPEN CORONARY ENDARTERECTOMY 04/04/2011 Angioplasty; bare metal stent to L circumflex - PAST SURGICAL HISTORY OF - REMOVAL GALLBLADDER 86 Cholecystectomy - REP TET/FALLOT; CLOS PREV SHUNT 94 - REPR ASD W BYPASS PAST MEDICAL HISTORY Diagnosis Date - Colon polyp 08/20/13 40cm - Coronary artery disease - CVA (cerebral infarction) 03/2011 - Diabetes mellitus type 2, controlled, without complications ([facility]) 10/07/2007 Onset 09/14 - Esophagitis - Headache(784.0) - Hernia of unspecified site of abdominal cavity without mention of obstruction or gangrene hiatal - HYPERLIPIDEMIA NEC/NOS 10/07/2007 Onset 09/14. - Hypertension - MD (myocardial infarction) (HCC) 03/19 - Myalgia and myositis, unspecified - Other specified gastritis - Personal history of colonic polyps 02/06/2015 - Snoring - Stroke (HCC) FAMILY HISTORY Problem Relation Age of Onset - Cancer Mother 57 OVARIAN - Emphysema Father - Heart Father - Breast Cancer Sister - Heart Maternal Grandmother ENLARGED - Diabetes Maternal Grandmother - Thyroid Maternal Grandmother goiter - Coronary Artery Disease Maternal Grandmother - Hypertension Maternal Grandfather - Thyroid Maternal Aunt - Alcohol/Drug Maternal Uncle - Alcohol/Drug Paternal Uncle - Alcohol/Drug Brother - Breast Cancer Maternal Aunt - Cancer Sister brain, and bone - Colon Cancer Maternal Aunt Current Outpatient Medications Medicat (more content not included)... [facility] Evaluation note Note Date & Type Note Facility documented in this encounter [facility] Summary Purpose Family History No Family History Records FoundNo Family History Records Found Advance Directives No Advanced Directives Records FoundNo Advanced Directives Records Found Additional Source Comments Reason for Visit (unrecogniz ed section and content) Reason Comments Ear Pain right migrating into glands x 1 week INFORMATION SOURCE (unrecogn ized section and content) DATE CREATED AUTHOR AUTHOR'S ORGANIZ ATION 10/05/2021 [facility] Source Comments (unrecognize d section and content) In the event this informatio n is protected by the Federal Confidentiality of Alcohol and Drug Abuse Patient Records regulations: The Federal rules restrict any use of the information to criminally investigate or prosecute any alcohol or drug abuse patient.[facility] FOR RECORDS PERTAINING TO PATIENTS WHO ARE OR HAVE BEEN ENROLLED IN A CHEMICAL DEPENDENCY/SUBSTANCEABUSE PROGRAM, SOME INFORMATION MAY BE OMITTED. This clinical summary was aggregated from multiple sources. Caution should be exercised in using it in the provision of clinical care. This summary normalizes information from multiple sources, and as a consequence, information in this document may materially change the coding, format and clinical context of patient data. In addition, data may be omitted in some cases. CLINICAL DECISIONS SHOULD BE BASED ON THE PRIMARY CLINICAL RECORDS. [facility]. provides no warranty or guarantee of the accuracy or completeness of information in this document.
[2023-08-01 11:21] LABS: ALB/GLOB Ratio 0.8 RATIO (0.9-2.4); AST(SGOT) 38 U/L (15-37); Alanine Aminotransfer ALT/SGPT 81 U/L (13-56); Albumin, Serum 3.5 g/dL (3.2-5.0); Alkaline Phosphatase 100 U/L (45-117); Anion Gap 5 (5-15); BUN 24 mg/dL (7-18); BUN/Creat Ratio 24.2 RATIO (10-20); Calcium,Total 9.6 mg/dL (8.5-10.1); Chloride 103 mmol/L (98-107); Cholesterol 168 mg/dL (200); Creatinine, Serum 0.99 mg/dL (0.55-1.02); EST Glomerular Filtration Rate 59 mL/min (>60); Est Glom Filt Rate - Afr Amer 71 mL/min (>60); Globulin 4.5 g/dL (2.2-4.2); Glucose 292 mg/dL (74-106); High Density Lipoprotein 51 mg/dL; Sodium Level 135 mmol/L (136-145); Triglycerides 132 mg/dL; Very Low Density Lipoprotein 26 mg/dL (5-40)
== END | disposition home or self-care (01) ==
PROVIDERS: PCP Internal Medicine; Referring Provider Internal Medicine; Visit Provider Internal Medicine
DX: E11.22 Type 2 diabetes mellitus with diabetic chronic kidney disease (principal); Z79.4 Long term (current) use of insulin; N18.30 Chronic kidney disease, stage 3 unspecified
CPT/HCPCS: 36415; 80053; 80061

== ENCOUNTER → 2023-09-02 | Outpatient (CLI) | payer MEDICARE, SELFPAY ==
--- NOTE | 2023-09-02 09:51 | BD_ITS ---
STUDY: DUAL ENERGY X-RAY ABSORPTIOMETRY / DXA REASON FOR EXAM: Female, 68 years old. Post Menopausal TECHNIQUE: Bone Mineral Density (BMD) measurements of lumbar spine and left hip were obtained. COMPARISON: None. FINDINGS: Lumbar Spine (L1-L4): g/cm2 (0.913) / T-score (-1.2) / Z-score (0.8) Findings are suggestive of osteopenia with a low fracture risk. Left Femur Total: g/cm2 (0.852) / T-score (-0.7) / Z-score (0.7) Left Femoral Neck: g/cm2 (0.676) / T-score (-1.6) / Z-score (0.2) BD/Dexa Bone Density Study IMPRESSION: The patient is considered osteopenic as outlined below according to World Mike Organization (WHO) criteria with a moderate fracture risk. Reference Information: The T-score is the number of standard deviations above or below the standard which is normal for young adults at their peak bone mineral density. The World Health Organization (WHO) interprets the T-scores as follows: Above -1 Normal bone density Between -1 and -2.5 Osteopenia Equal to / or below -2.5 Osteoporosis As a practical clinical guideline, osteopenia may be graded as follows: Mild -1 through -1.5 Moderate -1.6 through -2.0 Severe -2.1 through -2.4 The Z-score is the number of standard deviations above or below age-matched controls. A Z-score of less than -1.5 would be considered abnormal. References: 1. NIH Osteoporosis and Related Bone Diseases www osteo.org 2. International Society for Clinical Densitometry www iscd.org 3. National Osteoporosis Foundation www nof.org Electronically Signed: Steve Holloway MD at 9:36 EDT ,
--- NOTE | 2023-09-02 09:51 | BI_ITS ---
MAMMOGRAPHY - BILATERAL SCREENING REASON FOR EXAM: Female, 68 years old. Routine annual screening examination. PERTINENT HISTORY: Aunts with breast cancer. TECHNIQUE: Digital bilateral breast fernando (3D mammographic acquisition) in the CC and MLO projections. 2-D mediolateral oblique (MLO) and craniocaudad (CC) views of both breasts were obtained. CAD: Full Field Digital Mammography with Computer Added Detection was performed. COMPARISON: Comparison is made with prior outside examination dated April 25, 2017. FINDINGS: Breast Composition: The breasts are almost entirely fatty. There are no dominant masses or suspicious calcifications. No other significant abnormalities are identified. There has been no significant change since the prior study. BI/SCRN MAMM (CAD)W/FERNANDO BILAT IMPRESSION: Stable bilateral screening mammogram. Yearly follow-up mammogram recommended. (A) ASSESSMENT CATEGORY: BIRADS Category 1: Negative. A letter regarding these results will be sent to the patient by the facility within 30 days. Approximately 10% of breast cancers are not detected by mammography. A normal mammogram should not delay biopsy of a clinically suspicious abnormality. [id number] Electronically Signed: Steve Holloway MD at 10:05 EDT ,
== END | disposition home or self-care (01) ==
LOC: OPBD 09:51
PROVIDERS: PCP Internal Medicine; Referring Provider Internal Medicine; Visit Provider Internal Medicine
DX: Z12.31 Encounter for screening mammogram for malignant neoplasm of breast (principal); Z78.0 Asymptomatic menopausal state
CPT/HCPCS: 77063; 77067; 77080

== ENCOUNTER → 2023-11-06 | Outpatient (CLI) | payer MEDICARE, SELFPAY ==
[2023-11-06 17:03] LABS: Absolute Lymphocyte Count 2.19 X10^3/uL (0.83-4.51); Absolute Neutrophil Count 3.7 X10^3/uL (2.0-7.7); Basophil# 0.03 X10^3/uL; Basophil% 0.5 % (0-1); Eosinophils% 1.5 % (0-5); Hematocrit 41.2 % (37-47); Lymphocyte # 2.19 X10^3/ul (0.83-4.51); Mean Corpuscular Hgb 30.2 pg (27.0-32.0); Mean Corpuscular Volume 88.8 fL (81-99); Mean Platelet Vol. 10.7 fl (6.2-12.0); Monocyte# 0.58 X10^3/uL; Monocyte% 8.7 % (0-10); NRBC Flagged by Analyzer 0 % (0-5); Neutrophil # 3.73 X10^3/uL (2.7-7.7); Neutrophil % 56.1 % (47-70); Platelet Count 219 K/mm3 (150-450); RBC Distribution Width CV 12.6 % (11.6-14.6); RBC Distribution Width SD 40.8 fl (35.1-43.9); Red Blood Count 4.64 M/mm3 (4.2-5.4); White Blood Count 6.6 K/mm3 (4.4-11.0)
[2023-11-06 17:19] LABS: ALB/GLOB Ratio 0.7 RATIO (0.9-2.4); AST(SGOT) 24 U/L (15-37); Alanine Aminotransfer ALT/SGPT 38 U/L (13-56); Albumin, Serum 3.1 g/dL (3.2-5.0); Alkaline Phosphatase 83 U/L (45-117); Anion Gap 6 (5-15); BUN 18 mg/dL (7-18); BUN/Creat Ratio 18.1 RATIO (10-20); Calcium,Total 9.3 mg/dL (8.5-10.1); Chloride 104 mmol/L (98-107); Creatinine, Serum 0.99 mg/dL (0.55-1.02); EST Glomerular Filtration Rate 59 mL/min (>60); Est Glom Filt Rate - Afr Amer 71 mL/min (>60); Globulin 4.6 g/dL (2.2-4.2); Glucose 304 mg/dL (74-106); Potassium 3.7 mmol/L (3.5-5.1); Protein, Total 7.7 g/dL (6.4-8.2); Sodium Level 136 mmol/L (136-145)
[2023-11-06 18:03] LABS: Microalbumin:Creatinine Ratio 903.7 mg/g CRE (<30 mg/g CRE)
== END | disposition home or self-care (01) ==
LOC: BIMLAB 15:58
PROVIDERS: PCP Internal Medicine; Visit Provider Internal Medicine
DX: E11.9 Type 2 diabetes mellitus without complications (principal); R74.8 Abnormal levels of other serum enzymes
CPT/HCPCS: 36415; 80053; 82043; 82570; 85025

== ENCOUNTER → 2024-01-19 | Outpatient (CLI) | payer MEDICARE, SELFPAY ==
[2024-01-19 16:33] LABS: Mucous, Urine 0 SEEN /hpf (<or=2+); Red Blood Cells-Urine 0 SEEN /hpf (0-5)
[2024-01-19 16:58] LABS: Glucose, Dipstick 1000 mg/dl (Normal); Ketone-Dipstick Negative (Negative); Leukocyte Esterase-Dipstick 100 /ul (Negative); Nitrite-Dipstick Positive (Negative); Occult Blood-Urine 25 /ul (Negative); Protein-Dipstick 100 mg/dl (Negative); Urine Bilirubin Dipstick Negative (Negative); Urine Urobilinogen Normal (Normal)
[2024-01-19 17:23] LABS: Color, Urine Yellow (Yellow)
[2024-01-19 17:24] LABS: Urine Clarity Cloudy (Clear)
[2024-01-19 17:26] LABS: Bacteria 4+ /hpf (None Seen); Squamous Epithelial Cells - UA 25-50 SEEN /hpf (5-10); White Blood Cells >100 SEEN /hpf (0-5)
== END | disposition home or self-care (01) ==
LOC: LABSPEC 16:30
PROVIDERS: PCP Internal Medicine; Referring Provider Nurse Practitioner; Visit Provider Nurse Practitioner
DX: R35.0 Frequency of micturition (principal)
CPT/HCPCS: 81001; 87086; 87088; 87186

== ENCOUNTER 2024-04-11 17:36 | Inpatient (IN) | payer MEDICARE, SELFPAY ==
[2024-04-11] VITALS (7 sets, daily range): BP systolic 121–139; BP diastolic 64–74; PULSE 80–87; RESP 16–19; TEMP 36.1–36.8; O2SAT 89–98; BMI 30.7
--- NOTE | 2024-04-11 17:50 | ED.VIS.CHEST ---
HPI History of Present Illness Chief Complaint: Chest Pain [facility] Medical History Osteoarthritis OAB (overactive bladder) Elevated liver enzymes Health care maintenance Colon cancer screening Hypersomnolence Bilateral knee pain Hearing difficulty Memory impairment Abdominal pain Urinary frequency Cardiology follow-up encounter History of atrial fibrillation History of echocardiogram Post-menopausal Loss of hearing Wears glasses Wears dentures Dementia Anxiety Insulin dependent diabetes mellitus Arthritis Walker as ambulation aid Bladder disease High cholesterol Back pain History of hiatal hernia Dietary restriction Gastric reflux Smoker History of pain when walking Hypertension TIA (transient ischemic attack) History of heart attack Dysphagia Right ear pain Difficulty swallowing Cognitive attention deficit URI (upper respiratory infection) Insomnia Anxiety and depression Cerebrovascular disease Unspecified dementia without behavioral disturbance Seasonal allergies History of stroke History of ischemic multifocal multiple vascular territories stroke Obesity Depression Hyperlipidemia Essential (primary) hypertension Type 2 diabetes mellitus Atherosclerotic heart disease of [place] coronary artery without angina pectoris Ventricular septal defect Paroxysmal atrial fibrillation Home Medications ?Medication ?Instructions ?Recorded ?Last Taken ?Type aspirin 81 mg tablet,delayed 81 mg PO DAILY heart [facility] 12/26/17 09/28/22 History release walker #1 ea 02/22/20 Unknown Rx pen needle, diabetic 31 gauge x #100 ea 02/25/20 Unknown Rx 5/16 (BD Ultra-Fine Short Pen Needle) back brace #1 ea 02/16/21 Unknown Rx lancets (Accu-Chek Softclix #200 ea 07/04/21 Unknown Rx Lancets) blood glucose control, low (True #1 ea 07/05/21 Unknown Rx Metrix Level 1 solution) blood sugar diagnostic (True #300 ea 07/05/21 Unknown Rx Metrix Glucose Test Strip) pen needle, diabetic 32 gauge x #200 ea 03/06/22 Unknown Rx 5/32 (Easy Comfort Pen [place]) lancets 28 gauge (FreeStyle #200 ea 01/06/23 Unknown Rx Lancets) Lift Chair #1 ea 01/31/23 Unknown Rx flash glucose scanning reader #1 ea 03/13/23 Unknown Rx (FreeStyle Monie 2 [place]) rivaroxaban 10 mg tablet (Xarelto) 10 mg PO DAILY #90 tabs 06/11/23 Unknown Rx flash glucose sensor (FreeStyle #1 ea 07/15/23 Unknown Rx Monie 2 Sensor kit) losartan 50 mg tablet 50 mg PO DAILY #90 TABLETS 09/29/23 Unknown Rx Novolog FlexPen U-100 Insulin 100 20 unit (0.2 mL) subcut TID 3 11/06/23 Unknown Rx unit/mL (3 mL) subcutaneous months #54 mL (insulin aspart U-100) insulin degludec 100 unit/mL (3 50 unit (0.5 mL) subcut DAILY 3 11/06/23 Unknown Rx mL) subcutaneous pen (Tresiba months #45 mL FlexTouch U-100 insulin) gabapentin 300 mg capsule 300 mg PO QHS nerve pain #90 caps 12/10/23 Unknown Rx omeprazole 40 mg capsule,delayed 40 mg PO DAILY #90 caps 01/19/24 Unknown Rx release semaglutide 0.25 mg or 0.5 mg (2 0.25 mg (0.368 mL) subcut QWEEK #3 01/19/24 Unknown Rx mg/3 mL) subcutaneous pen injector mL (Ozempic) vibegron 75 mg tablet (Gemtesa) 75 mg PO DAILY #30 tabs 01/19/24 Unknown Rx atorvastatin 40 mg tablet See Rx Instructions .Route 02/02/24 Unknown Rx .COMPLEX #30 tabs donepezil 10 mg tablet See Rx Instructions .Route 02/02/24 Unknown Rx .COMPLEX #30 tabs glipizide 10 mg tablet, extended 10 mg PO BID for diabetes mellitus 02/05/24 Unknown Rx release 24 hr #60 TABLETS trazodone 50 mg tablet 50 mg PO QHS #30 TABLETS 03/01/24 Unknown Rx duloxetine 30 mg capsule,delayed 30 mg PO DAILY #90 ea 03/08/24 Unknown Rx release Allergy/AdvReac Type Severity Reaction Status Date / Time No Known Allergies Allergy Verified 01/19/24 14:51 Family History Mother Ovarian cancer Father , age 79 Hypertension COPD (chronic obstructive pulmonary disease) Heart disease CVA (cerebral vascular accident) Sister , age 69 Multiple sclerosis Cancer bone cancer Sister Brain tumor Heart disease Brother A-fib Surgical History Hx of total hip arthroplasty History of esophagogastroduodenoscopy (EGD) Hx of section History of open heart surgery History of hysterectomy Hx of cholecystectomy History of left heart catheterization (04/03/11) History of coronary artery stent placement (04/06/11) Social History Smoking Status: Current every day smoker tobacco type: cigarettes alcohol intake: never substance use type: does not use what type of physical activity do you participate in: none EXAM Physical Exam Const Vital Signs: 04/11/24 17:36 04/11/24 17:52 Temperature 98.3 F Temperature Source Oral Pulse Rate 82 Respiratory Rate 16 Respiratory Effort Normal Non-Labored Respiratory Pattern Normal Blood Pressure 133/72 H Blood Pressure Mean 92 Pulse Ox 97 Oxygen Delivery Method Room Air MDM MDM MDM Narrative Medical decision making narrative: HISTORY OF PRESENT ILLNESS: 68-year-old female presents with chest pain. Started yesterday. Is been intermittent. I she is unsure if they are exertional. It is sternal. It is sharp it is not pressure-like. It is not pleuritic. Denies leg swelling. Notes she is supposed be on Xarelto has not been on it for several weeks. She is unclear as to why. Denies vomiting or diarrhea. Denies any bleeding diathesis. Denies any family personal history of connective tissue diseases. The patient denies recent surgery in the last 4 weeks or immobilization in the last 3 days, denies previous diagnosis of DVT or PE, hemoptysis, unilateral leg swelling or malignancy with treatment the last 6 months or palliative. No estrogen use noted. REVIEW OF SYSTEMS: Pertinent positives: Chest pain, shortness of breath Pertinent negatives: Leg swelling, focal weakness, syncope PHYSICAL EXAM: Nursing triage notes reviewed, Vital signs reviewed Constitutional: please see mdm HENT: MMM Eyes: Pupils equal round and reactive to light, Extraocular muscles intact Neck: No stridor, no JVD, full neck ROM Lungs: Clear to auscultation, No wheezing or obvious rales. No increased work of breathing, no conversational dyspnea, no accessory muscle use, no nasal flaring. No respiratory distress noted Heart: Regular rate and rhythm, No murmurs, No rubs and No gallops, 2+ distal pulses (radial, femoral, posterior tibial) in all extremities Abdomen: Soft, there is no tenderness, rigidity, rebound or guarding, no obvious peritoneal signs, no palpable pulsatile abdominal masses, no auscultated abdominal bruit : No CVAT Extremities: No edema Neuro: No focal neurological deficits, cranial nerves II through XII intact, 5/5 strength in all extremities. Intact sensation to light touch in all extremities, 2+ reflexes bilateral patella tendons. Normal gait. No ataxia. Skin: No rash or lesions noted MEDICAL DECISION MAKING: Chief Complaint: Chest pain External records reviewed: Reviewed prior echocardiogram from February 2019 which showed ejection fraction 40% Factors affecting care: Hypertension, CVA, type 2 diabetes, hyperlipidemia, paroxysmal A-fib Social determinants of health: Denies smoking drink alcohol use History obtained from others: Family Consults: Hospitalist ODALYS Narrative: The patient was hemodynamically stable, afebrile, nontoxic-appearing. Exam without focal cardiopulmonary abnormalities. I considered the following differential diagnosis: ACS, arrhythmia, anemia, electrolyte disturbance, pneumothorax, pericarditis, PE, aortic dissection ALL IMAGES (IF OBTAINED) HAVE BEEN PERSONALLY REVIEWED AND INTERPRETED BY MYSELF. EKG with normal sinus rhythm, normal axis, no STEMI D-dimer elevated will obtain a CTA High-sensitivity troponin is negative, no evidence of myocardial ischemia BNP elevated consistent with increased ventricular stretch and volume overload BMP without evidence of significant electrolyte abnormalities, no anion gap, no acute kidney injury. Chest x-ray was read reviewed personally myself shows evidence of bilateral infiltrates versus pulmonary edema CTA of the chest shows pleural effusions but no PE Patient was ambulated in the emergency department with noted hypoxia down to 89%. I gave 40 mg IV Lasix to begin diuresis given elevated BNP, signs of pulmonary infiltrates, increased risk factors including hypertension, diabetes, history of CAD with chest pain I will admit the patient for cardiology consultation, diuresis, echocardiogram and possible confirmatory testing in the form of stress test or cardiac catheterization. Will discuss with hospitalist. Discussed with Dr. Murray accepted the patient's case to PCU The patient and/or family, caregivers express understanding. The patient and/or family, caregivers agrees with the plan. Shared decision making: I will have a discussion with the patient and or visitors regarding risk/benefits of further testing or admission. They will be made aware of of the risk/benefits inherent in this decision they will be given the opportunity to voice understanding. Total critical care time today provided was at least 0 minutes. This excludes separately billable procedures. Critical care time (if documented) is secondary to the patient having high probability of clinically significant/life threatening deterioration in the patient's condition which required my urgent intervention. Impression: 1. Chest pain 2. History of hyperlipidemia 3. History of type 2 diabetes 4. CHF exacerbation Dispo: Admit to PCU This note was generated with [employer] dictation software. It may contain incorrect words, spelling, and punctuation that were not noted in review of the chart prior to signing. Discharge Plan Triage Chief Complaint: Chest Pain ED Provider: Albert Leyva Dx/Rx/DC Orders Prescriptions: No Action (DME) lancets [FreeStyle Lancets] 28 gauge misc See Rx Instructions .MEDSUPPLY Qty: 200 3RF Rx Instructions: check blood glucose 3x daily for type 2 DM insulin aspart U-100 [Novolog FlexPen U-100 Insulin] 100 unit/mL (3 mL) insulin pen 20 unit subcut TID 90 Days Qty: 54 1RF Tresiba FlexTouch U-100 100 unit/mL (3 mL) insulin pen 50 unit subcut DAILY 90 Days Qty: 45 1RF Gemtesa 75 mg tablet 75 mg PO DAILY Qty: 30 0RF Ozempic 0.25 mg or 0.5 mg (2 mg/3 mL) pen injector 0.25 mg subcut QWEEK Qty: 3 0RF Rx Instructions: for 4 weeks aspirin 81 MG tablet,delayed release (DR/EC) 81 mg PO DAILY (DME) [facility] See Rx Instructions .ROUTE .MEDSUPPLY Qty: 1 0RF Rx Instructions: As directed (DME) pen needle, diabetic [BD Ultra-Fine Short Pen Needle] 31 gauge x 5/16 needle See Rx Instructions .ROUTE .MEDSUPPLY Qty: 100 5RF Rx Instructions: bid (DME) back brace Misc See Rx Instructions .ROUTE .MEDSUPPLY Qty: 1 0RF Rx Instructions: As directed for back pain (DME) lancets [Accu-Chek Softclix Lancets] Misc See Rx Instructions .ROUTE .MEDSUPPLY Qty: 200 4RF Rx Instructions: Check blood sugar 3 times a day (DME) True Metrix Level 1 Solution See Rx Instructions .ROUTE .MEDSUPPLY Qty: 1 0RF Rx Instructions: As directed for type 2 DM (DME) True Metrix Glucose Test Strip Strip See Rx Instructions .ROUTE .MEDSUPPLY Qty: 300 3RF Rx Instructions: three times daily (DME) pen needle, diabetic [Easy Comfort Pen [place]] 32 gauge x 5/32 needle See Rx Instructions .ROUTE .MEDSUPPLY Qty: 200 3RF Rx Instructions: As directed (DME) Lift Chair See Rx Instructions .Route .MEDSUPPLY Qty: 1 0RF Rx Instructions: As directed (DME) FreeStyle Monie 2 [place] Misc See Rx Instructions .Route Qty: 1 5RF Rx Instructions: As directed Xarelto 10 mg tablet 10 mg PO DAILY Qty: 90 2RF Rx Instructions: for 35 days (DME) FreeStyle Monie 2 Sensor Kit See Rx Instructions .Route Qty: 1 1RF Rx Instructions: As directed losartan 50 mg tablet 50 mg PO DAILY Qty: 90 0RF gabapentin 300 mg capsule 300 mg PO QHS Qty: 90 0RF omeprazole 40 mg capsule,delayed release(DR/EC) 40 mg PO DAILY Qty: 90 0RF atorvastatin 40 mg tablet See Rx Instructions .ROUTE .COMPLEX Qty: 30 3RF Dose Instruction: TAKE 1 TABLET BY MOUTH AT BEDTIME FOR CHOLESTEROL Rx Instructions: TAKE 1 TABLET BY MOUTH AT BEDTIME FOR CHOLESTEROL donepezil 10 mg tablet See Rx Instructions .ROUTE .COMPLEX Qty: 30 3RF Dose Instruction: TAKE 1 TABLET BY MOUTH ONCE DAILY AT BEDTIME Rx Instructions: TAKE 1 TABLET BY MOUTH ONCE DAILY AT BEDTIME glipizide 10 mg tablet extended release 24hr 10 mg PO BID Qty: 60 0RF trazodone 50 mg tablet 50 mg PO QHS Qty: 30 0RF duloxetine 30 mg capsule,delayed release(DR/EC) 30 mg PO DAILY Qty: 90 0RF Primary Care Provider: Obed Scott Referrals: Obed Scott MD [Primary Care Provider] - Print Language: Armenian
--- NOTE | 2024-04-11 18:13 | EKG12_ITS ---
Test Reason : cp Blood Pressure : */* mmHG Vent. Rate : 84 BPM Atrial Rate : 84 BPM P-R Int : 206 ms QRS Dur : 114 ms QT Int : 388 ms P-R-T Axes : 76 76 160 degrees QTcB Int : 458 ms Normal sinus rhythm ST & T wave abnormality, consider lateral ischemia Abnormal ECG Confirmed by Aba Mckeon ([id number]), fan mail editor SERAFIN KOTHARI ([id number]) on 04/12/2024 9:23:20 AM Referred By: Confirmed By: Aba Mckeon
--- NOTE | 2024-04-11 18:20 | RAD_ITS ---
STUDY: XR Chest 1 View 04/11/2024 6:21 PM REASON FOR EXAM: Female, 68 years old. chest pain COMPARISON: 01/16/2020 TECHNIQUE: XR Chest 1 View FINDINGS: There is no demonstrated pleural abnormality. There are multiple median sternotomy wires. Bilateral infiltrates. Enlarged heart size. Normal mediastinum. Normal ventura. Prominent appearing increased interstitial lung markings. Normal visualized pulmonary arteries. There is atherosclerotic calcification of the aortic arch with tortuosity. There are diffuse degenerative changes of the visualized thoracic spine. There is degenerative osteoarthritis of the bilateral shoulders. There are no acute findings of the upper abdomen. RAD/Chest 1 View (Portable) IMPRESSION: Bilateral pneumonia. Electronically Signed: Diaz Pérez MD at 19:23 EST ,
[2024-04-11 18:45] LABS: D-Dimer Quantitative (DVT/PE) 1.11 FEU/ug/m (0.27-0.49)
[2024-04-11 18:52] LABS: Anion Gap 7 (5-15); BUN 18 mg/dL (7-18); BUN/Creat Ratio 19.3 RATIO (10-20); Calcium,Total 8.7 mg/dL (8.5-10.1); Chloride 106 mmol/L (98-107); Creatinine, Serum 0.93 mg/dL (0.55-1.02); EST Glomerular Filtration Rate 63 mL/min (>60); Est Glom Filt Rate - Afr Amer 76 mL/min (>60); Estimated Creatinine Clearance 67.54 ml/min; Glucose 323 mg/dL (74-106); Potassium 3.8 mmol/L (3.5-5.1); Sodium Level 138 mmol/L (136-145); Troponin-I HS (w/2H Reflex) 30 pg/mL (3.0-54.0)
--- NOTE | 2024-04-11 19:07 | CT_ITS ---
EXAM: CT ANGIOGRAPHY CHEST WITHOUT AND WITH INTRAVENOUS CONTRAST CLINICAL INDICATION: chest pain elevated d-dimer TECHNIQUE: Helically acquired angiography images were obtained of the chest without and with intravenous contrast. This CT exam was performed using one or more of the following dose reduction techniques: automated exposure control, adjustment of the mA and/or kV according to patient size, and/or use of iterative reconstruction technique. MIP reconstructed images were created and reviewed. CONTRAST: IV 100mL Isovue-370 RADIATION DOSE: CTDIvol = 14.98 mGy, DLP = 565.37 mGy-cm COMPARISON: No relevant prior studies available. FINDINGS: PULMONARY ARTERIES: Dilation of the pulmonary artery may represent pulmonary artery hypertension. No demonstrated pulmonary embolism or arterial dissection. AORTA: There is atherosclerotic calcification of the aortic arch with tortuosity and elongation of the aortic arch and descending thoracic aorta. Normal in caliber. No evidence of dissection. GREAT VESSELS OF AORTIC ARCH: Unremarkable. Normal in caliber. No evidence of dissection. LUNGS AND PLEURAL SPACES: Lower lobe interlobular septal thickening may suggest a component of pulmonary edema. Pulmonary emphysema. Moderate bilateral pleural effusions. No mass. No pneumothorax. HEART: Heart is enlarged. There are calcifications of the coronary arteries. No pericardial effusion. MEDIASTINUM: Unremarkable. No mediastinal or hilar adenopathy. Esophagus is unremarkable. No hiatal hernia. THYROID: Unremarkable. No thyroid lesions. BONES/JOINTS: Median sternotomy wires. There are degenerative changes of the shoulders. There are multi-level degenerative changes of the thoracic spine. No suspicious lytic or blastic abnormality. OTHER FINDINGS: Post-processing of the images was performed, with axial imaging and 3D reconstruction. MIPS images were obtained. CT/CTA Chest W/WO Contrast IMPRESSION: 1. No demonstrated pulmonary embolism or arterial dissection. 2. Dilation of the pulmonary artery may represent pulmonary artery hypertension. 3. Heart is enlarged. 4. Moderate bilateral pleural effusions. Electronically Signed: Diaz Pérez MD at 20:57 EST ,
[2024-04-11 19:10] LABS: Absolute Lymphocyte Count 1.62 X10^3/uL (0.83-4.51); Basophil# 0.04 X10^3/uL; Basophil% 0.6 % (0-1); Eosinophil# 0.06 X10^3/uL; Hematocrit 36.5 % (37-47); Lymphocyte # 1.62 X10^3/ul (0.83-4.51); Lymphocyte % 25.7 % (19-41); Mean Corp Hgb Conc 32.9 g/dL (32-36); Mean Corpuscular Hgb 27.9 pg (27.0-32.0); Mean Corpuscular Volume 84.9 fL (81-99); Mean Platelet Vol. 11.3 fl (6.2-12.0); Monocyte# 0.54 X10^3/uL; Monocyte% 8.6 % (0-10); NRBC Flagged by Analyzer 0 % (0-5); Neutrophil # 4.03 X10^3/uL (2.7-7.7); Neutrophil % 63.8 % (47-70); Platelet Count 239 K/mm3 (150-450); RBC Distribution Width CV 13.2 % (11.6-14.6); RBC Distribution Width SD 40.8 fl (35.1-43.9); White Blood Count 6.3 K/mm3 (4.4-11.0)
[2024-04-11 19:31] LABS: BNP,B-Type NATRIURETIC PEPTIDE 807.3 pg/mL (0-100)
[2024-04-11 20:24] LABS: Reflex Troponin-HS? (from REC) Y
[2024-04-11 21:02] LABS: Troponin-I HS 36 pg/mL (3.0-54.0)
--- NOTE | 2024-04-11 21:27 | PCM.HP.STD ---
[facility] - General General Date of Admission: 04/11/24 Date of Service: 04/11/24 Chief Complaint: Chest Pain and SOB. HPI Narrative WINIFRED LOVE, is a 68 F with a past medical history of essential hypertension, hyperlipidemia, obesity; with BMI of 30.7 this admission, DM-2; of unknown control on glipizide and Ozempic, diabetic neuropathy, tobacco abuse, CAD; s/p TN (2010) and LCX stent (2011), history of VSD, history of open heart surgery (~1999), chronic systolic CHF; with LVEF ~40% (2018), history of multifocal CVA (2011); with subsequent Right-sided weakness with dysphagia and subsequent dementia, paroxysmal atrial fibrillation; with patient having taken herself off Xarelto a few weeks ago for some unknown reason, CKD; stage III, overactive bladder; with urinary incontinence, history of vitamin D deficiency, history of hysterectomy, history of cholecystectomy, remote history of , depression with anxiety, GERD; history of hiatal hernia and esophageal dilatation, history of Right femoral neck fracture; s/p Right total hip replacement (2019) and OA; with chronic bilateral knee pain and chronic debility who presents to [facility] ER complaining of chest pain and shortness of breath. Ms. Love reports her symptoms began approximately 1 day prior to admission with intermittent chest pain that was substernal, sharp, moderate and may have worsened with exertion. She also admits to dyspnea on exertion that progressed to shortness of breath at rest that is typical of her previous bouts of CHF. She denies associated fever, chills, nausea, vomiting, diarrhea, constipation, leg swelling, focal neurologic weakness, syncope/near syncope and diaphoresis. In the ER she was noted to have an elevated BNP of 807.3 pg/mL along with CTA of chest that demonstrated moderate bilateral pleural effusions with cardiomegaly and dilation of the pulmonary artery which radiologist thought may represent pulmonary artery hypertension complicated by clinical evidence of respiratory insufficiency compounded by intermittent chest pain in the setting of medical noncompliance with Xarelto with an elevated D-dimer of 1.11 present on admission and Hyperglycemia of 323 mg/dL present on admission and she was then admitted to the PCU for ongoing care for stay that is expected to extend beyond 2 midnights. [facility] Medical History Osteoarthritis OAB (overactive bladder) Elevated liver enzymes Health care maintenance Colon cancer screening Hypersomnolence Bilateral knee pain Hearing difficulty Memory impairment Abdominal pain Urinary frequency Cardiology follow-up encounter History of atrial fibrillation History of echocardiogram Post-menopausal Loss of hearing Wears glasses Wears dentures Dementia Anxiety Insulin dependent diabetes mellitus Arthritis Walker as ambulation aid Bladder disease High cholesterol Back pain History of hiatal hernia Dietary restriction Gastric reflux Smoker History of pain when walking Hypertension TIA (transient ischemic attack) History of heart attack Dysphagia Right ear pain Difficulty swallowing Cognitive attention deficit URI (upper respiratory infection) Insomnia Anxiety and depression Cerebrovascular disease Unspecified dementia without behavioral disturbance Seasonal allergies History of stroke History of ischemic multifocal multiple vascular territories stroke Obesity Depression Hyperlipidemia Essential (primary) hypertension Type 2 diabetes mellitus Atherosclerotic heart disease of [place] coronary artery without angina pectoris Ventricular septal defect Paroxysmal atrial fibrillation Home Medications ?Medication ?Instructions ?Recorded ?Last Taken ?Type aspirin 81 mg tablet,delayed 81 mg PO DAILY heart health 12/26/17 09/28/22 History release walker #1 ea 02/22/20 Unknown Rx pen needle, diabetic 31 gauge x #100 ea 02/25/20 Unknown Rx 5/16 (BD Ultra-Fine Short Pen Needle) back brace #1 ea 02/16/21 Unknown Rx lancets (Accu-Chek Softclix #200 ea 07/04/21 Unknown Rx Lancets) blood glucose control, low (True #1 ea 07/05/21 Unknown Rx Metrix Level 1 solution) blood sugar diagnostic (True #300 ea 07/05/21 Unknown Rx Metrix Glucose Test Strip) pen needle, diabetic 32 gauge x #200 ea 03/06/22 Unknown Rx 5/32 (Easy Comfort Pen [place]) lancets 28 gauge (FreeStyle #200 ea 01/06/23 Unknown Rx Lancets) Lift Chair #1 ea 01/31/23 Unknown Rx flash glucose scanning reader #1 ea 03/13/23 Unknown Rx (FreeStyle Monie 2 [place]) rivaroxaban 10 mg tablet (Xarelto) 10 mg PO DAILY #90 tabs 06/11/23 Unknown Rx flash glucose sensor (FreeStyle #1 ea 07/15/23 Unknown Rx Monie 2 Sensor kit) losartan 50 mg tablet 50 mg PO DAILY #90 TABLETS 09/29/23 Unknown Rx Novolog FlexPen U-100 Insulin 100 20 unit (0.2 mL) subcut TID 3 11/06/23 Unknown Rx unit/mL (3 mL) subcutaneous months #54 mL (insulin aspart U-100) insulin degludec 100 unit/mL (3 50 unit (0.5 mL) subcut DAILY 3 11/06/23 Unknown Rx mL) subcutaneous pen (Tresiba months #45 mL FlexTouch U-100 insulin) gabapentin 300 mg capsule 300 mg PO QHS nerve pain #90 caps 12/10/23 Unknown Rx omeprazole 40 mg capsule,delayed 40 mg PO DAILY #90 caps 01/19/24 Unknown Rx release semaglutide 0.25 mg or 0.5 mg (2 0.25 mg (0.368 mL) subcut QWEEK #3 01/19/24 Unknown Rx mg/3 mL) subcutaneous pen injector mL (Ozempic) vibegron 75 mg tablet (Gemtesa) 75 mg PO DAILY #30 tabs 01/19/24 Unknown Rx atorvastatin 40 mg tablet See Rx Instructions .Route 02/02/24 Unknown Rx .COMPLEX #30 tabs donepezil 10 mg tablet See Rx Instructions .Route 02/02/24 Unknown Rx .COMPLEX #30 tabs glipizide 10 mg tablet, extended 10 mg PO BID for diabetes mellitus 02/05/24 Unknown Rx release 24 hr #60 TABLETS trazodone 50 mg tablet 50 mg PO QHS #30 TABLETS 03/01/24 Unknown Rx duloxetine 30 mg capsule,delayed 30 mg PO DAILY #90 ea 03/08/24 Unknown Rx release Allergy/AdvReac Type Severity Reaction Status Date / Time No Known Allergies Allergy Verified 01/19/24 14:51 Family History Mother Ovarian cancer Father , age 79 Hypertension COPD (chronic obstructive pulmonary disease) Heart disease CVA (cerebral vascular accident) Sister , age 69 Multiple sclerosis Cancer bone cancer Sister Brain tumor Heart disease Brother A-fib Surgical History Hx of total hip arthroplasty History of esophagogastroduodenoscopy (EGD) Hx of section History of open heart surgery History of hysterectomy Hx of cholecystectomy History of left heart catheterization (04/03/11) History of coronary artery stent placement (04/06/11) Social History Smoking Status: Current every day smoker tobacco type: cigarettes alcohol intake: never substance use type: does not use what type of physical activity do you participate in: none ROS ROS Narrative Review of Systems: Constitutional: Patient denies fever or chills. Eyes: Patient denies changes in vision or discharge from eyes. ENT: Patient denies runny nose, sore throat or ear pain. Resp: Patient admits to IZAGUIRRE that progressed to shortness of breath at rest as per HPI. She denies cough. CV: Patient admits to substernal chest pain as per HPI. She denies palpitations, heart racing or diaphoresis. GI: Patient denies abdominal pain, nausea, vomiting, diarrhea or constipation. : Patient denies dysuria or hematuria. MSK: Patient denies arthralgias or myalgias. Skin: Patient denies rash, abscess or jaundice. Psych: Patient denies symptoms of uncontrolled depression or anxiety. Neuro: Patient denies headache, paresthesias or new focal neurologic deficits. Allergy: Patient denies lip swelling, tongue swelling or urticaria. Hematology: Patient denies easy bleeding or easy bruisability. Endocrinology: Patient denies polyuria, polydipsia or polyphagia. 14 point review of systems otherwise negative except for positives noted above in HPI. Vital Signs Vital Signs Vital Signs: 04/11/24 17:36 04/11/24 17:52 04/11/24 18:13 Temperature 98.3 F Temperature Source Oral Pulse Rate 82 Respiratory Rate 16 Respiratory Effort Normal Non-Labored Respiratory Pattern Normal Blood Pressure 133/72 H Blood Pressure Mean 92 Pulse Ox 97 Oxygen Delivery Method Room Air Room Air 04/11/24 19:34 04/11/24 20:46 Temperature Temperature Source Pulse Rate 81 Respiratory Rate 19 H Respiratory Effort Respiratory Pattern Blood Pressure 129/74 H Blood Pressure Mean 92 Pulse Ox 89 Oxygen Delivery Method Room Air Room Air Weight Weight: 201 lb 11.567 oz Body Mass Index (BMI) 30.7 Physical Exam Const alert and oriented x3 Constitutional Narrative: Mild distress noted. General Appearance: cooperative HEENT normocephalic, head/scalp atraumatic, hearing grossly normal bilaterally and moist oral mucous membranes Eyes PERRL and EOMs intact bilaterally Neck no lymphadenopathy and supple Resp Resp Narrative: Decreased breath sounds at bases. Cardio regular rate and regular rhythm GI normal to inspection, nondistended, normoactive bowel sounds, soft to palpation, non-tender and non-distended GI Narrative: Obese. Extremity normal to inspection, full ROM and no clubbing, cyanosis or edema Skin Skin Narrative: Patient has no evidence of rash, abscess or jaundice. Neuro oriented x3, CN's II-XII intact bilaterally, moves all extremities and no focal motor deficits Sensorium / Orientation: awake, alert, oriented to person, oriented to place and oriented to time Speech: speech normal Psych affect normal Results Medical Records Data Attestation: I reviewed the patient's medical records Lab / Micro Data Attestation: I reviewed the patient's lab results. 04/11/24 18:15 04/11/24 18:15 Labs: Laboratory Results - last 24 hr 04/11/24 18:15: WBC 6.3, RBC 4.30, Hgb 12.0, Hct 36.5 L, MCV 84.9, MCH 27.9, MCHC 32.9, RDW Std Deviation 40.8, RDW Coeff of [place]aki[place] 13.2, Plt Count 239, MPV 11.3, Immature Gran % (Auto) 0.300, Neut % (Auto) 63.8, Lymph % (Auto) 25.7, Lynn % (Auto) 8.6, Eos % (Auto) 1.0, Baso % (Auto) 0.6, Absolute Neuts (auto) 4.0, Absolute Lymphs (auto) 1.62, Nucleated RBC % 0, D-Dimer Quant (PE/DVT) 1.11 H*, Sodium 138, Potassium 3.8, Chloride 106, Carbon Dioxide 25.0, Anion Gap 7, BUN 18, Creatinine 0.93, Estim Creat Clear Calc 67.54, Est GFR (MDRD) Af Amer 76, Est GFR (MDRD) Non-Af 63, BUN/Creatinine Ratio 19.3, Glucose 323 H, Calcium 8.7, Troponin I High Sens 30, B-Natriuretic Peptide 807.3 H 04/11/24 20:35: Troponin I High Sens 36 Imaging Radiology Impression Chest X-Ray 04/11/24 18:20 IMPRESSION: Bilateral pneumonia. Electronically Signed: Diaz Pérez MD at 19:23 EST , Chest CTA 04/11/24 19:07 IMPRESSION: 1. No demonstrated pulmonary embolism or arterial dissection. 2. Dilation of the pulmonary artery may represent pulmonary artery hypertension. 3. Heart is enlarged. 4. Moderate bilateral pleural effusions. Electronically Signed: Diaz Pérez MD at 20:57 EST , Assessment & Plan Assessment/Plan (1) Acute heart failure with reduced ejection fraction (HFrEF, <= 40%): (2) Heart failure, systolic, chronic, etiology unknown: (3) Chest pain: QUALIFIERS: Chest pain type: unspecified Qualified Code(s): R07.9 - Chest pain, unspecified (4) Respiratory insufficiency: (5) Medical non-compliance: (6) Essential (primary) hypertension: (7) History of coronary artery stent placement: (8) Paroxysmal atrial fibrillation: (9) Tobacco abuse: (10) Type 2 diabetes mellitus: QUALIFIERS: Chronic kidney disease stage: stage 3 (moderate) Chronic kidney disease stage 3 subtype: unspecified whether 3a or 3b Diabetes mellitus complication detail: with chronic kidney disease Diabetes mellitus complication status: with kidney complications 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 AE of chronic systolic CHF; with LVEF ~40% with elevated BNP of 807.3 pg/mL and CTA positive for moderate bilateral pleural effusions with cardiomegaly and dilation of the pulmonary artery which radiologist thought may represent pulmonary artery hypertension - Admit to PCU. Continue IV Lasix begun in the ER plus add supplemental KCl and magnesium. Check echocardiogram to reevaluate LVEF. Give Tylenol as needed pain or fever. 2. Chest pain complicating #1 in the setting of known previous coronary artery disease with history of TN and subsequent stent plus previous open heart surgery and VSD - Serialize troponin. Check Lexiscan NST in the AM to evaluate for possible underlying ischemia. 3. PAF; with patient having taking herself off Xarelto due to medical noncompliance compounding #1 & #2 - Patient will be restarted on her Xarelto as previous. Patient will be instructed to take her medications as prescribed. 4. Tobacco abuse adding to the medical complexity of #1 - #3 - Tobacco cessation will be strongly encouraged with nicotine patch offered to control cravings. 5. DM-2; of uncontrolled with hyperglycemia of 323 mg/dL on glipizide and Ozempic with diabetic neuropathy - ADA/cardiac diet. FSBS q. AC/HS plus SSI. Check hemoglobin A1c to objectively evaluate quality of diabetic control. 6. Obesity; with BMI of 30.7 this admission adding to the burden of disease outlined from #1 - #5 - Weight loss will be recommended. This complicates her case and may hamper her recovery. 7. History of multifocal CVA (2011); with subsequent Right-sided weakness with dysphagia and subsequent dementia and chronic debility - Stable. PT/OT and Case Management to consult and treat on-rounds in the a.m. for further recommendations with help appreciated in advance. 8. Essential hypertension - Maintain current regimen plus give IV hydralazine as needed for systolic blood pressure greater than 160 mmHg. 9. Hyperlipidemia - Resume statin as previous plus check lipid profile this admission in light of #2. 10. CKD; stage III - Stable at this time with patient showing evidence of volume overload. Check renal indices daily to ensure continued stability while on Lasix. 11. Overactive bladder; with urinary incontinence - Stable. Continue Vibegron as previous. 12. History of vitamin D deficiency - Check vitamin D levels this admission with MAR showing no agent for supplementation. 13. History of hysterectomy - Noted. 14. History of cholecystectomy - Noted. 15. Remote history of - Noted for the sake of completeness. 16. Depression with anxiety - Resume duloxetine and trazodone as previous. 17. GERD; history of hiatal hernia and esophageal dilatation - Noted. Continue PPI as before. 18. History of Right femoral neck fracture; s/p Right total hip replacement (2019) - Noted. 19. OA; with chronic bilateral knee pain - Stable. Give Tylenol prn. 20. DVT prophylaxis - Patient will be restarted on Xarelto for #3 which will also suffice for DVT prophylaxis. Total time: Approximately (but not less than) 75 minutes. Charges/Coding Visit Charges Inpatient E&M: 69483 Init Hosp L3
[2024-04-11] MEDS: Furosemide 40 MG/4 ML Vial IV (21:37)
--- NOTE | 2024-04-11 22:24 | ECHOD_ITS ---
Reason For Study: CHF Procedure This was a 2D Doppler, Color Flow transthoracic echocardiogram. Exam performed in department. Left Ventricle Severely dilated left ventricle. Moderate concentric left ventricular hypertrophy. Severe LV generalized hypokinesis. Akinetic posterior lateral wall. Estimated LVEF 15%. Stage 3 diastolic dysfunction. Right Ventricle Normal right ventricle. Atria The left atrium is severely enlarged. The right atrium is mildly enlarged. Mitral Valve Mild-Moderate (1-2+) mitral valve insufficiency. Tricuspid Valve Trivial tricuspid valve insufficiency. Unable to estimate RV systolic pressure due to insufficient tricuspid regurgitant envelope. Aortic Valve Aortic sclerosis, no stenosis. Pulmonic Valve The pulmonic valve is not well visualized. Great Vessels Normal sized aortic root. Pericardium/Pleural No pericardial effusion. MMode/2D Measurements & Calculations LVIDd: 6.6 cm IVSd: 1.5 cm Ao root diam: 3.3 cm LVIDs: 5.3 cm LVPWd: 0.92 cm RVDd: 4.2 cm FS: 19.6 % LAV(MOD-bp): 99.6 ml LVAd ap4: 48.0 cm2 SV(MOD-sp4): 50.8 ml LAV(MOD-bp) Indexed: 48.6 ml/m2 LVLd ap4: 9.3 cm SI(MOD-sp4): 24.8 ml/m2 LAV(MOD-sp2): 86.8 ml EDV(MOD-sp4): 205.0 ml LAV(MOD-sp4): 110.2 ml EDV(sp4-el): 210.5 ml LVAs ap4: 39.9 cm2 LVLs ap4: 8.7 cm ESV(MOD-sp4): 154.2 ml ESV(sp4-el): 155.4 ml EF(MOD-sp4): 24.8 % EF(sp4-el): 26.2 % SV(sp4-el): 55.1 ml LA A4 area: 29.0 cm2 LA dimension(2D): 5.3 cm RA A4 area: 17.6 cm2 TAPSE: 1.9 cm Time Measurements MV dec time: 0.17 sec Doppler Measurements & Calculations MV E max colin: 136.5 cm/sec Lat Peak E' Colin: 5.1 cm/sec Med Peak E' Colin: 6.3 cm/sec MV A max colin: 60.1 cm/sec E/E' lat: 26.7 E/E' med: 21.5 MV E/A: 2.3 MV V2 max: 158.4 cm/sec MV P1/2t max colin: 159.2 cm/sec Ao V2 max: 133.5 cm/sec MV max P.0 mmHg MV P1/2t: 53.9 msec Ao max P.1 mmHg MV V2 mean: 74.7 cm/sec MV mean P.9 mmHg MV dec slope: 864.7 cm/sec2 MV V2 VTI: 28.7 cm MVA(P1/2t): 4.1 cm2 LV V1 max: 83.6 cm/sec MR max colin: 458.9 cm/sec PA V2 max: 71.2 cm/sec LV V1 max P.8 mmHg MR max P.2 mmHg PA V2 mean: 49.1 cm/sec ECHO/Echo Complete Interpretation Summary Moderate to severely dilated left ventricle. Severe LV generalized hypokinesis. Akinetic posterior lateral wall. Estimated L VEF 15%. Stage 3 diastolic dysfunction. The left atrium is severely enlarged. The right atrium is mildly enlarged. Mild-Moderate (1-2+) mitral valve insufficiency. Ordering Physician: Ramana Lau Performed By: Twin Lang RCS
[2024-04-11 22:57] LABS: BNP,B-Type NATRIURETIC PEPTIDE 898.5 pg/mL (0-100)
[2024-04-11 23:01] LABS: Hemoglobin A1c 9.8 % (3.8-5.6)
[2024-04-11 23:06] LABS: Troponin-I HS 34 pg/mL (3.0-54.0)
[2024-04-11] MEDS: Insulin Lispro 100 UNIT/ML INSULN.PEN SC (23:50)
[2024-04-12 00:14] LABS: T4 Free Direct 0.86 ng/dL (0.76-1.46)
[2024-04-12] MEDS: Donepezil HCl 10 MG Tablet PO ×2 (00:25→21:21)
[2024-04-12] MEDS: traZODone 50 MG Tablet PO ×2 (00:26→21:23)
[2024-04-12] MEDS: Gabapentin 300 MG Capsule PO ×2 (00:26→21:22)
[2024-04-12] MEDS: Acetaminophen 325 MG Tablet 650 MG PO ×2 (00:26→11:53)
[2024-04-12] MEDS: Atorvastatin Calcium 40 MG Tablet PO ×2 (00:26→21:21)
[2024-04-12 00:32] LABS: Bedside Glucose 239 mg/dL (74-106)
[2024-04-12 05:00] VITALS: BP 136/71; PULSE 83; RESP 18; TEMP 36.4; O2SAT 93
[2024-04-12 05:34] VITALS: BMI 29.8
--- NOTE | 2024-04-12 05:50 | RAD_ITS ---
INDICATION: AE CHF and Chest Pain. EXAMINATION/TECHNIQUE: X-RAY - XR Chest 1 View COMPARISON: Prior study dated: 04/11/2024 FINDINGS: LINES/DEVICES: Median sternotomy wires appear intact. Cardiac leads overlie the chest. LUNGS: The lungs are well expanded. No consolidation, edema or effusion. No pneumothorax. MEDIASTINUM AND CARDIOVASCULAR STRUCTURES: Cardiac silhouette is unchanged with a calcified aorta. Central airways and mediastinal contour are unremarkable. BONES AND SOFT TISSUES: No acute abnormality. RAD/Chest 1 View (Portable) IMPRESSION: No acute pulmonary finding. Electronically Signed: Ganesh Womack MD at 6:33 EST ,
[2024-04-12 05:54] LABS: Absolute Lymphocyte Count 1.67 X10^3/uL (0.83-4.51); Absolute Neutrophil Count 3.2 X10^3/uL (2.0-7.7); Basophil# 0.05 X10^3/uL; Basophil% 0.9 % (0-1); Eosinophil# 0.09 X10^3/uL; Eosinophils% 1.6 % (0-5); Hematocrit 35.5 % (37-47); Hemoglobin 11.6 g/dL (12.0-15.0); Lymphocyte # 1.67 X10^3/ul (0.83-4.51); Lymphocyte % 30.4 % (19-41); Mean Corp Hgb Conc 32.7 g/dL (32-36); Mean Corpuscular Hgb 27.8 pg (27.0-32.0); Mean Corpuscular Volume 85.1 fL (81-99); Mean Platelet Vol. 10.1 fl (6.2-12.0); Monocyte# 0.51 X10^3/uL; Monocyte% 9.3 % (0-10); NRBC Flagged by Analyzer 0 % (0-5); Neutrophil # 3.16 X10^3/uL (2.7-7.7); Neutrophil % 57.6 % (47-70); Platelet Count 210 K/mm3 (150-450); RBC Distribution Width CV 13.4 % (11.6-14.6); RBC Distribution Width SD 41.7 fl (35.1-43.9); Red Blood Count 4.17 M/mm3 (4.2-5.4); White Blood Count 5.5 K/mm3 (4.4-11.0)
--- NOTE | 2024-04-12 05:55 | EKG12_ITS ---
Test Reason : AM EKG Blood Pressure : */* mmHG Vent. Rate : 86 BPM Atrial Rate : 86 BPM P-R Int : 234 ms QRS Dur : 122 ms QT Int : 402 ms P-R-T Axes : 72 71 137 degrees QTcB Int : 481 ms Sinus rhythm with 1st degree A-V block Non-specific intra-ventricular conduction delay Minimal voltage criteria for LVH, may be normal variant ( Corwith product ) ST & T wave abnormality, consider anterolateral ischemia Abnormal ECG When compared with ECG of 11-Apr-2024 23:57, MANUAL COMPARISON REQUIRED DATA IS UNCONFIRMED Confirmed by Aba Mckeon ([id number]), technical editor SERAFIN KOTHARI ([id number]) on 04/13/2024 9:26:03 AM Referred By: Confirmed By: Aba Mckeon
[2024-04-12] MEDS: Losartan Potassium 50 MG Tablet PO (06:19)
[2024-04-12] MEDS: Aspirin E.C. 81 MG Tablet PO (06:19)
[2024-04-12] MEDS: Insulin Lispro 100 UNIT/ML INSULN.PEN SC ×4 (06:58→21:21)
[2024-04-12 07:10] LABS: Bedside Glucose 333 mg/dL (74-106)
--- NOTE | 2024-04-12 07:22 | PN.HOSP_ITS ---
Reason for Visit Reason for Visit: Diagnoses Type 2 diabetes mellitus with diabetic chronic kidney disease (04/11/24) Type 2 diabetes mellitus with diabetic polyneuropathy (04/11/24) Obesity, unspecified (04/11/24) Essential (primary) hypertension (04/11/24) Atherosclerotic heart disease of samish coronary artery without angina pectoris (04/11/24) Paroxysmal atrial fibrillation (04/11/24) Acute systolic (congestive) heart failure (04/11/24) Chronic systolic (congestive) heart failure (04/11/24) Chronic kidney disease, stage 3 unspecified (04/11/24) Ventricular septal defect (04/11/24) Other abnormalities of breathing (04/11/24) Chest pain, unspecified (04/11/24) Tobacco use (04/11/24) 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 Was also assessed to be in acute congestive heart failure admitted to monitored bed for further management Objective Data Objective Data Vital Signs: Vital Signs Temp Pulse Resp BP Pulse Ox O2 Del Method 96.9 F L 80 18 139/74 H 96 Room Air 04/11/24 23:00 04/11/24 23:00 04/11/24 23:00 04/11/24 23:00 04/11/24 23:00 04/11/24 23:00 Oxygen Delivery Method Room Air Weight: 89 kg Body Mass Index (BMI) 29.8 Intake & Output: Intake and Output for Last 24 Hours 04/10/24 04/11/24 04/12/24 23:59 22:59 23:59 Intake Total 0 / 450 450 / 450 Balance 0 / 450 450 / 450 Lab / Micro Data 04/12/24 05:36 04/12/24 05:36 Labs: Laboratory Results - last 24 hr 04/11/24 18:15: WBC 6.3, RBC 4.30, Hgb 12.0, Hct 36.5 L, MCV 84.9, MCH 27.9, MCHC 32.9, RDW Std Deviation 40.8, RDW Coeff of Zakiya 13.2, Plt Count 239, MPV 11.3, Immature Gran % (Auto) 0.300, Neut % (Auto) 63.8, Lymph % (Auto) 25.7, [place] % (Auto) 8.6, Eos % (Auto) 1.0, Baso % (Auto) 0.6, Absolute Neuts (auto) 4.0, Absolute Lymphs (auto) 1.62, Nucleated RBC % 0, D-Dimer Quant (PE/DVT) 1.11 H*, Sodium 138, Potassium 3.8, Chloride 106, Carbon Dioxide 25.0, Anion Gap 7, BUN 18, Creatinine 0.93, Estim Creat Clear Calc 67.54, Est GFR (MDRD) Af Amer 76, Est GFR (MDRD) Non-Af 63, BUN/Creatinine Ratio 19.3, Glucose 323 H, Calcium 8.7, Troponin I High Sens 30, B-Natriuretic Peptide 807.3 H 04/11/24 20:22: Free T4 0.86 04/11/24 20:35: Troponin I High Sens 36 04/11/24 22:24: Troponin I High Sens 34, TSH 6.480 H 04/11/24 22:30: Hemoglobin A1c 9.8 H, B-Natriuretic Peptide 898.5 H 04/11/24 22:55: POC Glucose 239 H 04/12/24 05:36: WBC 5.5, RBC 4.17 L, Hgb 11.6 L, Hct 35.5 L, MCV 85.1, MCH 27.8, MCHC 32.7, RDW Std Deviation 41.7, RDW Coeff of Zakiya 13.4, Plt Count 210, MPV 10.1, Immature Gran % (Auto) 0.200, Neut % (Auto) 57.6, Lymph % (Auto) 30.4, [place] % (Auto) 9.3, Eos % (Auto) 1.6, Baso % (Auto) 0.9, Absolute Neuts (auto) 3.2, Absolute Lymphs (auto) 1.67, Nucleated RBC % 0 04/12/24 06:51: POC Glucose 333 H Radiography Diagnostic Testing: Radiology Impression Chest X-Ray 04/11/24 18:20 IMPRESSION: Bilateral pneumonia. Electronically Signed: Diaz Pérez MD at 19:23 EST , Chest CTA 04/11/24 19:07 IMPRESSION: 1. No demonstrated pulmonary embolism or arterial dissection. 2. Dilation of the pulmonary artery may represent pulmonary artery hypertension. 3. Heart is enlarged. 4. Moderate bilateral pleural effusions. Electronically Signed: Diaz Pérez MD at 20:57 EST , Chest X-Ray 04/12/24 05:50 IMPRESSION: No acute pulmonary finding. Electronically Signed: Ganesh Womack MD at 6:33 EST , Physical Exam Narrative GENERAL: cooperative HEENT: Atraumatic; normocephalic EYES; Anicteric, Normal Conjunctiva NECK; supple, normal thyroid, RESPIRATORY: Diminished to auscultation CARDIOVASCULAR: Regular S1 S2, GI: soft, normoactive bowel sounds, : No Renal angle tenderness; EXTREMITIES: edema, no clubbing, MUSCULOSKELETAL: no muscle wasting NEURO: Awake; no lateralizing signs. SKIN: No Rash PSYCH; Flat affect Assessment & Plan Assessment/Plan (1) Chest pain: QUALIFIERS: Chest pain type: unspecified Qualified Code(s): R07.9 - Chest pain, unspecified (2) Acute heart failure with reduced ejection fraction (HFrEF, <= 40%): PLAN: Plan Patient is a 68-year-old lady with multiple comorbidities admitted with chest pain. Was also assessed to be in acute congestive heart failure admitted to monitored bed for further management 1. Chest pain ? Patient has been placed on a monitored bed TN has been ruled out with serial cardiac enzymes patient to complete evaluation with a nuclear stress test ? Patient nuclear stress test demonstrated Fixed perfusion defect of the lateral wall suggestive of previous infarct with mild to moderate joseline-infarct ischemia. Reversible ischemia of the anterior and inferior wall noted..The gated Cardiolite study reports an LVEF of 7%. The LV appears markedly dilated with severe LV systolic dysfunction. Based on above finding consult was placed to cardiology 2. Acute on chronic congestive heart failure with reduced ejection fraction ? Echo from 03/02/2019 demonstrated EF of 40%. Patient has been admitted to monitored bed placed on strict input and output, daily weight, fluid restriction, low-sodium diet as well as diuretic therapy with furosemide. Repeat echo ordered for subsequent eval. Echo demonstrated?Moderate to severely dilated left ventricle. Severe LV generalized hypokinesis. Akinetic posterior lateral wall. Estimated LVEF 15%. Stage 3 diastolic dysfunction. The left atrium is severely enlarged. The right atrium is mildly enlarged. Mild-Moderate (1-2+) mitral valve insufficiency. Consult placed to cardiology 3. Coronary artery disease ? With previous TN and subsequent, stent placement. Patient is on guideline directed medical therapy 4. Dyslipidemia ?Patient is on statin therapy, continued at home dose 5. Hypertension ? Blood pressure controlled, home medications continued with dose adjustment as needed 6. Paroxysmal A-fib ? Rate controlled on systemic anticoagulation with rivaroxaban. Patient has apparently not been compliant with anticoagulation therapy 7. GERD ? On PPI 8.Bilateral pleural effusion ? Found on CT ordered as part of evaluation for patient's elevated D-dimer. Do expect improvement with diuretic therapy 9. History of previous cardiac surgery ? Patient had a septal wall defect fixed patient not sure whether was an ASD or VSD 10. DVT prophylaxis ? On rivaroxaban Time spent in the patient's overall evaluation,decision-making process, review of diagnostic data, adjustment of management, discussion with other providers, nursing nursing and ancillary staff involved in patient's care documentation, 52 Minutes Advance planning; did discuss with the patient and family regarding advanced directives as well as CODE STATUS. Did explain the various scenarios involved ( FULL CODE, DNR CCA, DNR CCA with no intubation, and DNR CC and what each meant) patient elected to remain full code with CPR and intubation as needed. Order was placed. Time spent on discussion 18 minutes. Charges/Coding Multi Select Codes Visit Charges Visit Charges: [address] [place] [id number] Hospitalists' Procedures Procedures: 26786 Advncd Care Plan 30 Min
[2024-04-12 07:28] VITALS: BP 101/66; PULSE 79; RESP 18; TEMP 36.5; O2SAT 91
[2024-04-12 07:39] LABS: ALB/GLOB Ratio 0.8 RATIO (0.9-2.4); AST(SGOT) 13 U/L (15-37); Alanine Aminotransfer ALT/SGPT 26 U/L (13-56); Albumin, Serum 2.9 g/dL (3.2-5.0); Alkaline Phosphatase 74 U/L (45-117); Anion Gap 6 (5-15); BUN 19 mg/dL (7-18); Calcium,Total 8.8 mg/dL (8.5-10.1); Chloride 106 mmol/L (98-107); EST Glomerular Filtration Rate 58 mL/min (>60); Est Glom Filt Rate - Afr Amer 71 mL/min (>60); Estimated Creatinine Clearance 61.98 ml/min; Globulin 3.8 g/dL (2.2-4.2); Glucose 353 mg/dL (74-106); Magnesium 1.9 mg/dL (1.6-2.6); Phosphorus 4.1 mg/dL (2.5-4.9); Potassium 3.5 mmol/L (3.5-5.1); Protein, Total 6.7 g/dL (6.4-8.2); Sodium Level 139 mmol/L (136-145)
[2024-04-12 07:53] LABS: BNP,B-Type NATRIURETIC PEPTIDE 853.2 pg/mL (0-100)
[2024-04-12 11:00] VITALS: BP 136/74; PULSE 75; RESP 20; TEMP 36.6; O2SAT 92
--- NOTE | 2024-04-12 11:17 | STRESSREP ---
Stress Test Report Date: 04/12/2024 Procedure: Pharmacologic stress nuclear imaging study Indications: Chest pain Consent: Per the patient Procedure: The patient underwent pharmacologic (Regadenoson 0.4mg ) evaluation with a peak heart rate of 77 beats per minute (50%predicted maximal heart rate) and a peak blood pressure of 116/80 mmHg. The baseline ECG demonstrated sinus rhythm with ST changes in the inferior and lateral leads. The peak pharmacologic ECG was nondiagnostic secondary to baseline changes. There were no cardiac dysrhythmias pretest, during pharmacologic infusion, or recovery. Mild chest pressure was reported pretest, during pharmacologic infusion and in recovery. The patient was injected with 8.5 millicuries of technetium 99m Cardiolite and subsequently rest SPECT Cardiolite nuclear imaging was obtained in the horizontal long, vertical long, and short axis views. The patient underwent pharmacologic (Regadenoson) evaluation. The patient was injected with 26.6 millicuries of technetium 99m Cardiolite and subsequently stress SPECT Cardiolite nuclear imaging was obtained in the horizontal long, vertical long, and short axis views. A gated Cardiolite study at peak stress was obtained. The examination was stopped secondary to completion of protocol. Rest and stress SPECT Cardiolite nuclear imaging status post realignment, normalization, and attenuation correction demonstrate a fixed perfusion defect of the lateral wall suggestive of previous transmural infarct along with moderate joseline-infarct ischemia. Anterior and inferior reversible perfusion defect is also noted. The LV appears markedly dilated with severe hypokinesis. The reported LVEF is 7%. Impression: 1. Pharmacologic (Regadenoson) evaluation 2. Peak pharmacologic ECG nondiagnostic secondary to baseline changes. 3. There were no cardiac dysrhythmias pretest, during pharmacologic infusion, or recovery. 5. Fixed perfusion defect of the lateral wall suggestive of previous infarct with mild to moderate joseline-infarct ischemia. Reversible ischemia of the anterior and inferior wall noted.. 6. The gated Cardiolite study reports an LVEF of 7%. The LV appears markedly dilated with severe LV systolic dysfunction. This note was generated with [employer] software. It may contain incorrect words, spelling, and punctuation that were not noted in checking the note before signing.
[2024-04-12 11:56] LABS: Bedside Glucose 278 mg/dL (74-106)
[2024-04-12] MEDS: Vibegron 75 MG TABLET PO (11:56)
[2024-04-12] MEDS: DULoxetine Hcl 30 MG Capsule PO (11:56)
[2024-04-12] MEDS: Insulin Glargine-YFGN 100 UNIT/ML Pen 40 UNIT SC (11:57)
[2024-04-12] MEDS: Potassium Chloride Oral Tablet 20 MEQ PO ×2 (11:59→21:23)
[2024-04-12] MEDS: Magnesium Chloride 64 MG Delay Rel.Tablet 128 MG PO (12:00)
[2024-04-12] MEDS: Furosemide 40 MG/4 ML Vial IV ×2 (12:00→17:28)
[2024-04-12] MEDS: Pantoprazole Sodium 40 MG Tablet PO (12:01)
[2024-04-12] MEDS: Rivaroxaban 10 MG Tablet PO (12:01)
--- NOTE | 2024-04-12 12:10 | CASEMGMT ---
RN CM Face to Face with patient for initial transition planning/care coordination assessment. RN CM introduced self and role at [facility]. Patient sitting edge of bed, alert and oriented, daughter at bedside. Patient willing to participate in assessment and is able to answer all questions appropriately. Care providers, pharmacy, and demographics verified. Strata: 2 PCP: Tyler Specialists: none [facility] Living Will/HPOA: yes, daughter Reina Francisco LNOK: daughter, son Living Arrangements: Patient lives with son in a single story home with 1 steps and grab bar to enter. Patient is independent at home. Transportation: daughter, son DME/HHC: Patient has cane, walker, and grab bar at home. Patient has been to [facility] in the past. No previous HHC. Patient wishes to discharge home, denies need for home health at this time. Patient states she has no further needs or concerns at this time. CM to follow for discharge planning needs that may arise. Disposition Plan: Patient to discharge home with family support and follow-up plans in place. Lyn HERNANDEZ, RN, CM
--- NOTE | 2024-04-12 15:55 | PCM.CONS.C ---
Assessment & Plan Assessment/Plan (1) Chest pain: QUALIFIERS: Chest pain type: unspecified Qualified Code(s): R07.9 - Chest pain, unspecified PLAN: Patient's chest discomfort is not consistent with an acute ischemic event her cardiac isoenzymes are completely normal at 34 and 36 despite several days of chest symptoms. It does appear that heaviness may be related to transient pulmonary congestion as the chest x-ray done April 11 revealed pleural effusions and questionable bilateral lower lobe pneumonias which completely cleared on the chest x-ray April 12. Her BNP was elevated in the 830 range. Patient's left-ventricular ejection fraction was 15% on echocardiogram done this admission. She has a severe globally dilated LV. The patient has been instituted on some guideline directed medical therapy with IV Lasix losartan 50 mg daily. Her renal function is normal and her diabetes is being treated aggressively with insulin and oral agents. The patient has been less than optimal in taking her medications. She has been off of the Xarelto for at least a month due to financial constraints. Currently the patient is not in atrial fibrillation but does she does have a severely enlarged left atrium as well as 1-2+ mitral regurgitation and severe LV dysfunction EF in the 15% range with a dilated LV. Given the patient's blood pressure and heart rate I would recommend that we add Coreg 3.125 mg twice daily to her medical regimen. (2) Acute heart failure with reduced ejection fraction (HFrEF, <= 40%): PLAN: The patient will be instituted on guideline directed medical therapy for heart failure. She is on losartan and furosemide. We will add Coreg 3.125 mg twice daily and as tolerated add spironolactone. Will need to monitor her renal function and potassium. Given the diffuse ischemia noted on her stress test a catheterization will be recommended. I did discuss the complications that her dementia could cause with doing a heart catheterization as well as how the recommendations would be impacted depending on the outcome of the cath. This was discussed in detail with the patient and her daughter who voiced understanding. The patient received Xarelto today so the catheterization will be deferred for 48 hours. (3) Memory impairment: PLAN: Patient by history has significant memory impairment. I will defer to the primary service for long-term management and recommendations. (4) Coronary artery disease: QUALIFIERS: Coronary Disease-Associated Artery/Lesion type: [place] artery [place] vs. transplanted heart: [place] heart Associated angina: without angina Qualified Code(s): I25.10 - Atherosclerotic heart disease of [place] coronary artery without angina pectoris PLAN: Patient has a history of known coronary disease. In 2010 she had an acute posterolateral wall microinfarction with a nondominant circumflex was totally occluded near the origin. This was treated with duct drug-eluting stent and at that time her left nuclear ejection fraction was estimated 40%. On that catheterization she had mild disease in the LAD and right coronary arteries. The right coronary was a large dominant vessel. (5) Hypertension: QUALIFIERS: Hypertension type: unspecified Qualified Code(s): I10 - Essential (primary) hypertension PLAN: Blood pressure is adequate control but we do have room to add further guideline directed medical therapy for LV dysfunction. 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 (7) Paroxysmal atrial fibrillation: PLAN: Has a history of paroxysmal atrial fibrillation and CVAs. She has not been able to afford the Xarelto and Coumadin is not an option for her given transportation issues and refusal for significant amounts of blood work. The patient did receive a dose of Xarelto today. Her [id number] score calculates out at 8 which puts her at a 6.7 risk for stroke per year. PLAN: Plan 1. Will institute Coreg 3.125 mg twice daily and follow blood pressure and heart rate. 2. We will plan for left heart catheterization 04/14/[address] Lockett. 3. Need to discuss options of therapeutic interventions pending the outcome of the catheterization in the face of her dementia. The patient appears to be fairly functional she does live in her own home with her son who works during the day and she is alone at home. She is able to do very light housework and does sweep the floor in her kitchen and takes care of the kitchen housework. 4. Further recommendations will be forthcoming. HPI Consult Data Date of Consult: 04/12/24 HPI Narrative Reason for Consultation: Abnormal stress test. HPI Narrative: WINIFRED ROUSE, is a 68 F who presents with a chest pain syndrome that started April 06 and progressed to the point that she came into the hospital on April 11. This discomfort was described as a heavy weight. The patient's cardiac isoenzymes were negative times multiple sets. The patient has a remote PCI done in the at the time of her myocardial infarction and apparently had an ASD closure done 30 years ago. The patient has some significant dementia and is unable to participate in much of the discussion. She does remember having the discomfort and could describe it to me over the past several days however she does not have any significant knowledge of her other past medical history. Her daughter was able to fill in a lot of the blanks and was very helpful in obtaining her history. The patient's had a stress test done which was a pharmacologic nuclear today which showed lateral scar with joseline-infarct ischemia in anterior and inferior ischemic changes. Her echocardiogram showed a left ventricular ejection fraction of 15% with a dilated left ventricle dilated left atrium and mitral regurgitation prominent. The patient's initial EKG showed normal sinus rhythm with first-degree AV block nonspecific interventricular conduction delay nonspecific ST-T wave changes consistent with anterior lateral ischemia. The patient's telemetry has shown sinus rhythm with occasional PVCs her heart rate was 82 at the time of exam. Currently the patient is denying any of the significant chest discomfort. There is a question of a chest x-ray which showed bilateral lower lung field changes that completely resolved over 24 hours. I did discuss with the daughter about the complex situation with the patient's severe LV dysfunction by echo and her known dementia. The patient has not been taking any oral anticoagulation despite her history of atrial fibrillation and CVA. She carries a history of paroxysmal atrial fibrillation. Patient did receive a dose of Xarelto today which was a first dose in the month. [facility] Medical History Osteoarthritis OAB (overactive bladder) Elevated liver enzymes Health care maintenance Colon cancer screening Hypersomnolence Bilateral knee pain Hearing difficulty Memory impairment Abdominal pain Urinary frequency Cardiology follow-up encounter History of atrial fibrillation History of echocardiogram Post-menopausal Loss of hearing Wears glasses Wears dentures Dementia Anxiety Insulin dependent diabetes mellitus Arthritis Walker as ambulation aid Bladder disease High cholesterol Back pain History of hiatal hernia Dietary restriction Gastric reflux Smoker History of pain when walking Hypertension TIA (transient ischemic attack) History of heart attack Dysphagia Right ear pain Difficulty swallowing Cognitive attention deficit URI (upper respiratory infection) Insomnia Anxiety and depression Cerebrovascular disease Unspecified dementia without behavioral disturbance Seasonal allergies History of stroke History of ischemic multifocal multiple vascular territories stroke Obesity Depression Hyperlipidemia Essential (primary) hypertension Type 2 diabetes mellitus Atherosclerotic heart disease of [place] coronary artery without angina pectoris Ventricular septal defect Paroxysmal atrial fibrillation Home Medications ?Medication ?Instructions ?Recorded ?Last Taken ?Type aspirin 81 mg tablet,delayed 81 mg PO DAILY heart health 12/26/17 09/28/22 History release walker #1 ea 02/22/20 Unknown Rx pen needle, diabetic 31 gauge x #100 ea 02/25/20 Unknown Rx 5/16 (BD Ultra-Fine Short Pen Needle) back brace #1 ea 02/16/21 Unknown Rx lancets (Accu-Chek Softclix #200 ea 07/04/21 Unknown Rx Lancets) blood glucose control, low (True #1 ea 07/05/21 Unknown Rx Metrix Level 1 solution) blood sugar diagnostic (True #300 ea 07/05/21 Unknown Rx Metrix Glucose Test Strip) pen needle, diabetic 32 gauge x #200 ea 03/06/22 Unknown Rx 5/32 (Easy Comfort Pen [place]) lancets 28 gauge (FreeStyle #200 ea 01/06/23 Unknown Rx Lancets) Lift Chair #1 ea 01/31/23 Unknown Rx flash glucose scanning reader #1 ea 03/13/23 Unknown Rx (FreeStyle Monie 2 [place]) rivaroxaban 10 mg tablet (Xarelto) 10 mg PO DAILY #90 tabs 06/11/23 Unknown Rx flash glucose sensor (FreeStyle #1 ea 07/15/23 Unknown Rx Monie 2 Sensor kit) losartan 50 mg tablet 50 mg PO DAILY #90 TABLETS 09/29/23 Unknown Rx Novolog FlexPen U-100 Insulin 100 20 unit (0.2 mL) subcut TID 3 11/06/23 Unknown Rx unit/mL (3 mL) subcutaneous months #54 mL (insulin aspart U-100) insulin degludec 100 unit/mL (3 50 unit (0.5 mL) subcut DAILY 3 11/06/23 Unknown Rx mL) subcutaneous pen (Tresiba months #45 mL FlexTouch U-100 insulin) gabapentin 300 mg capsule 300 mg PO QHS nerve pain #90 caps 12/10/23 Unknown Rx omeprazole 40 mg capsule,delayed 40 mg PO DAILY #90 caps 01/19/24 Unknown Rx release semaglutide 0.25 mg or 0.5 mg (2 0.25 mg (0.368 mL) subcut QWEEK #3 01/19/24 Unknown Rx mg/3 mL) subcutaneous pen injector mL (Ozempic) vibegron 75 mg tablet (Gemtesa) 75 mg PO DAILY #30 tabs 01/19/24 Unknown Rx atorvastatin 40 mg tablet See Rx Instructions .Route 02/02/24 Unknown Rx .COMPLEX #30 tabs donepezil 10 mg tablet See Rx Instructions .Route 02/02/24 Unknown Rx .COMPLEX #30 tabs glipizide 10 mg tablet, extended 10 mg PO BID for diabetes mellitus 02/05/24 Unknown Rx release 24 hr #60 TABLETS trazodone 50 mg tablet 50 mg PO QHS #30 TABLETS 03/01/24 Unknown Rx duloxetine 30 mg capsule,delayed 30 mg PO DAILY #90 ea 03/08/24 Unknown Rx release Allergy/AdvReac Type Severity Reaction Status Date / Time No Known Allergies Allergy Verified 01/19/24 14:51 Family History Mother Ovarian cancer Father , age 79 Hypertension COPD (chronic obstructive pulmonary disease) Heart disease CVA (cerebral vascular accident) Sister , age 69 Multiple sclerosis Cancer bone cancer Sister Brain tumor Heart disease Brother A-fib Surgical History Hx of total hip arthroplasty History of esophagogastroduodenoscopy (EGD) Hx of section History of open heart surgery History of hysterectomy Hx of cholecystectomy History of left heart catheterization (04/03/11) History of coronary artery stent placement (04/06/11) Social History Smoking Status: Current every day smoker tobacco type: cigarettes alcohol intake: never substance use type: does not use what type of physical activity do you participate in: none ROS Review of Systems ROS Unobtainable: due to mental condition Constitutional Constitutional: Reports as per HPI Eyes Eyes: Reports systems reviewed and no addt'l complaints, except as documented ENT HEENT: Reports systems reviewed and no addt'l complaints, except as documented Cardiovascular Cardiovascular: Reports as per HPI Respiratory/Chest Respiratory/Chest: Reports as per HPI Gastrointestinal Gastrointestinal: Reports systems reviewed and no addt'l complaints, except as documented Genitourinary Genitourinary: Reports systems reviewed and no addt'l complaints, except as documented Musculoskeletal Musculoskeletal: Reports systems reviewed and no addt'l complaints, except as documented Integumentary Integumentary: Reports systems reviewed and no addt'l complaints, except as documented Neurologic Neurologic: Reports as per HPI Psychiatric Psychiatric: Reports systems reviewed and no addt'l complaints, except as documented Endocrine Endocrinology: Reports systems reviewed and no addt'l complaints, except as documented Hematologic/Lymphatic Hematologic/Lymphatic: Reports systems reviewed and no addt'l complaints, except as documented Allergic/Immunologic Allergic/Immunologic: Reports systems reviewed and no addt'l complaints, except as documented Physical Exam Narrative The patient ambulates in the room with some minimal assistance from her daughter. She has obvious memory deficits on physical exam. Const alert Constitutional Narrative: Patient is oriented to person and place and probably time. HEENT normocephalic Eyes EOMs intact bilaterally Neck no JVD and no carotid bruits Chest inspection of chest normal Resp normal respiratory effort Auscultation: crackles bilateral base Cardio regular rate Cardio Narrative: Distant heart tones Jugular Venous Distention: JVD other (Sitting in the 90 degree upright position no JVD) Rhythm: regular rhythm Heart Sounds: S1 normal and S2 normal; Negative for click, gallop, murmur or rub Bruits: Negative for carotid bruit GI soft to palpation Extremity no pedal edema General Extremity: Negative for edema Neuro Neuro Narrative: Alert but very slow to answer questions and has obvious long-term memory deficits. Risk Stratification Risk Stratification Applicable: Yes Age >/= 65: Yes >/= 3 CAD Risk Factors (HTN, HLD, DM, family hx of CAD, or current smoker): Yes Aspirin Use in the Past 7 Days: Yes Severe Angina (>/= episodes in 24 hours): Yes EKG ST Changes >/= 0.5mm: No Positive Cardiac Marker: No ALIE Risk Stratification Score: 4 ALIE % Risk: 20% Risk Charges/Coding Visit Charges Inpatient E&M: 76664 Init Hosp L3 Objective Data Vital Signs: Vital Signs Temp Pulse Resp BP Pulse Ox O2 Del Method 97.8 F 75 20 H 136/74 H 92 Room Air 04/12/24 11:00 04/12/24 11:00 04/12/24 11:00 04/12/24 11:00 04/12/24 11:00 04/12/24 14:14 Oxygen Delivery Method Room Air Weight: 196 lb 3.382 oz Body Mass Index (BMI) 29.8 Intake & Output: Intake and Output for Last 24 Hours 04/10/24 04/11/24 04/12/24 23:59 22:59 23:59 Intake Total 0 / 450 450 / 450 Balance 0 / 450 450 / 450 Lab / Micro Data Attestation: I reviewed the patient's lab results. 04/12/24 05:36 04/12/24 05:36 Labs: Laboratory Results - last 24 hr 04/11/24 18:15: WBC 6.3, RBC 4.30, Hgb 12.0, Hct 36.5 L, MCV 84.9, MCH 27.9, MCHC 32.9, RDW Std Deviation 40.8, RDW Coeff of [place] 13.2, Plt Count 239, MPV 11.3, Immature Gran % (Auto) 0.300, Neut % (Auto) 63.8, Lymph % (Auto) 25.7, [place] % (Auto) 8.6, Eos % (Auto) 1.0, Baso % (Auto) 0.6, Absolute Neuts (auto) 4.0, Absolute Lymphs (auto) 1.62, Nucleated RBC % 0, D-Dimer Quant (PE/DVT) 1.11 H*, Sodium 138, Potassium 3.8, Chloride 106, Carbon Dioxide 25.0, Anion Gap 7, BUN 18, Creatinine 0.93, Estim Creat Clear Calc 67.54, Est GFR (MDRD) Af Amer 76, Est GFR (MDRD) Non-Af 63, BUN/Creatinine Ratio 19.3, Glucose 323 H, Calcium 8.7, Troponin I High Sens 30, B-Natriuretic Peptide 807.3 H 04/11/24 20:22: Free T4 0.86 04/11/24 20:35: Troponin I High Sens 36 04/11/24 22:24: Troponin I High Sens 34, TSH 6.480 H 04/11/24 22:30: Hemoglobin A1c 9.8 H, B-Natriuretic Peptide 898.5 H 04/11/24 22:55: POC Glucose 239 H 04/12/24 05:36: WBC 5.5, RBC 4.17 L, Hgb 11.6 L, Hct 35.5 L, MCV 85.1, MCH 27.8, MCHC 32.7, RDW Std Deviation 41.7, RDW Coeff of [place] 13.4, Plt Count 210, MPV 10.1, Immature Gran % (Auto) 0.200, Neut % (Auto) 57.6, Lymph % (Auto) 30.4, [place] % (Auto) 9.3, Eos % (Auto) 1.6, Baso % (Auto) 0.9, Absolute Neuts (auto) 3.2, Absolute Lymphs (auto) 1.67, Nucleated RBC % 0, Sodium 139, Potassium 3.5, Chloride 106, Carbon Dioxide 27.0, Anion Gap 6, BUN 19 H, Creatinine 1.00, Estim Creat Clear Calc 61.98, Est GFR (MDRD) Af Amer 71, Est GFR (MDRD) Non-Af 58 L, BUN/Creatinine Ratio 19.0, Glucose 353 H, Calcium 8.8, Phosphorus 4.1, Magnesium 1.9, Total Bilirubin 0.30, AST 13 L, ALT 26, Alkaline Phosphatase 74, B-Natriuretic Peptide 853.2 H, Total Protein 6.7, Albumin 2.9 L, Globulin 3.8, Albumin/Globulin Ratio 0.8 L 04/12/24 06:51: POC Glucose 333 H 04/12/24 11:38: POC Glucose 278 H Rhythm Strip Rhythm Strip: Sinus Rhythm Rate: 82 Ectopy: PVC(s) Cardiology Labs/Tests 04/11/24 18:15: WBC 6.3, RBC 4.30, Hgb 12.0, Hct 36.5 L, MCV 84.9, MCH 27.9, MCHC 32.9, Plt Count 239, MPV 11.3, Immature Gran % (Auto) 0.300, Neut % (Auto) 63.8, Lymph % (Auto) 25.7, [place] % (Auto) 8.6, Eos % (Auto) 1.0, Baso % (Auto) 0.6, Absolute Neuts (auto) 4.0, Nucleated RBC % 0, D-Dimer Quant (PE/DVT) 1.11 H*, Sodium 138, Potassium 3.8, Chloride 106, Carbon Dioxide 25.0, Anion Gap 7, BUN 18, Creatinine 0.93, Est GFR (MDRD) Af Amer 76, Est GFR (MDRD) Non-Af 63, BUN/Creatinine Ratio 19.3, Glucose 323 H, Calcium 8.7, B-Natriuretic Peptide 807.3 H 04/11/24 22:30: Hemoglobin A1c 9.8 H, B-Natriuretic Peptide 898.5 H 04/12/24 05:36: WBC 5.5, RBC 4.17 L, Hgb 11.6 L, Hct 35.5 L, MCV 85.1, MCH 27.8, MCHC 32.7, Plt Count 210, MPV 10.1, Immature Gran % (Auto) 0.200, Neut % (Auto) 57.6, Lymph % (Auto) 30.4, [place] % (Auto) 9.3, Eos % (Auto) 1.6, Baso % (Auto) 0.9, Absolute Neuts (auto) 3.2, Nucleated RBC % 0, Sodium 139, Potassium 3.5, Chloride 106, Carbon Dioxide 27.0, Anion Gap 6, BUN 19 H, Creatinine 1.00, Est GFR (MDRD) Af Amer 71, Est GFR (MDRD) Non-Af 58 L, BUN/Creatinine Ratio 19.0, Glucose 353 H, Calcium 8.8, Phosphorus 4.1, Magnesium 1.9, Total Bilirubin 0.30, B-Natriuretic Peptide 853.2 H Rhythm: EKG: ECHO: Stress Test: Cardiac Cath: PCI: CT Surgery: Holter monitor: EPS: PPM: CXR: Chest CT Scan: Radiography Diagnostic Testing: Radiology Impression Chest X-Ray 04/11/24 18:20 IMPRESSION: Bilateral pneumonia. Electronically Signed: Diaz Pérez MD at 19:23 EST Reading Location ID and State: [facility] / [place] , Service support , Chest CTA 04/11/24 19:07 IMPRESSION: 1. No demonstrated pulmonary embolism or arterial dissection. 2. Dilation of the pulmonary artery may represent pulmonary artery hypertension. 3. Heart is enlarged. 4. Moderate bilateral pleural effusions. Electronically Signed: Diaz Pérez MD at 20:57 EST , Echocardiogram 04/11/24 22:24 Interpretation Summary Moderate to severely dilated left ventricle. Severe LV generalized hypokinesis. Akinetic posterior lateral wall. Estimated LVEF 15%. Stage 3 diastolic dysfunction. The left atrium is severely enlarged. The right atrium is mildly enlarged. Mild-Moderate (1-2+) mitral valve insufficiency. Ordering Physician: Ramana Lau Performed By: Twin Lang RCS Chest X-Ray 04/12/24 05:50 IMPRESSION: No acute pulmonary finding. Electronically Signed: Ganesh Womack MD at 6:33 EST ,
[2024-04-12 16:18] LABS: Bedside Glucose 390 mg/dL (74-106)
[2024-04-12] MEDS: Insulin Lispro 100 UNIT/ML INSULN.PEN 12 UNIT SC (16:21)
[2024-04-12 17:25] VITALS: BP 145/68; PULSE 80; RESP 16; TEMP 36.7; O2SAT 96
[2024-04-12] MEDS: 0.9% Saline Lock 10 ML Syringe IV (17:28)
[2024-04-12 21:13] VITALS: BP 110/53; PULSE 81; RESP 16; TEMP 36.7; O2SAT 94
[2024-04-12] MEDS: Mag Hydrox/Al Hydrox/Simeth 30 ML UDC PO (21:23)
[2024-04-12] MEDS: Carvedilol 3.125 MG TABLET PO (21:34)
[2024-04-12 22:25] LABS: Bedside Glucose 254 mg/dL (74-106)
[2024-04-13 03:15] VITALS: BP 102/56; PULSE 75; RESP 18; TEMP 36.7; O2SAT 95
[2024-04-13 06:00] VITALS: BMI 29.1
[2024-04-13 07:00] VITALS: O2SAT 94
[2024-04-13] MEDS: Insulin Lispro 100 UNIT/ML INSULN.PEN 12 UNIT SC ×3 (07:48→17:10)
[2024-04-13] MEDS: Insulin Lispro 100 UNIT/ML INSULN.PEN SC ×4 (07:49→20:20)
--- NOTE | 2024-04-13 07:51 | PCM.PN.CARD ---
Subjective Subjective Patient resting comfortably this morning in the bed recumbent position. She denies any shortness of breath PND orthopnea. O2 saturations are good on room air. The patient has diuresed significantly since admission. The patient currently denies any recurrence of her chest discomfort. Objective Data Vital Signs: Vital Signs Temp Pulse Resp BP Pulse Ox O2 Del Method 98.1 F 75 18 102/56 L 95 Room Air 04/13/24 03:15 04/13/24 03:15 04/13/24 03:15 04/13/24 03:15 04/13/24 03:15 04/13/24 03:15 Oxygen Delivery Method Room Air Weight: 191 lb 12.835 oz Body Mass Index (BMI) 29.1 Intake & Output: Intake and Output for Last 24 Hours 04/11/24 04/12/24 04/13/24 22:59 23:59 23:59 Intake Total 0 / 450 450 / 450 Balance 0 / 450 450 / 450 Lab / Micro Data 04/12/24 05:36 04/12/24 05:36 Labs: Laboratory Results - last 24 hr 04/12/24 05:36: B-Natriuretic Peptide 853.2 H 04/12/24 11:38: POC Glucose 278 H 04/12/24 16:00: POC Glucose 390 H 04/12/24 21:18: POC Glucose 254 H Rhythm Strip Rhythm Strip: Sinus Rhythm Rate: 83 Cardiology Labs/Tests 04/12/24 05:36: B-Natriuretic Peptide 853.2 H Rhythm: EKG: ECHO: Stress Test: Cardiac Cath: PCI: CT Surgery: Holter monitor: EPS: PPM: CXR: Chest CT Scan: Radiography Diagnostic Testing: Radiology Impression Echocardiogram 04/11/24 22:24 Interpretation Summary Moderate to severely dilated left ventricle. Severe LV generalized hypokinesis. Akinetic posterior lateral wall. Estimated LVEF 15%. Stage 3 diastolic dysfunction. The left atrium is severely enlarged. The right atrium is mildly enlarged. Mild-Moderate (1-2+) mitral valve insufficiency. Ordering Physician: Ramana Lau Performed By: Twin Lang RCS Physical Exam Const alert Constitutional Narrative: Patient is bright and alert this morning. She is oriented to person and place. HEENT normocephalic Eyes EOMs intact bilaterally Neck supple Chest inspection of chest normal Resp normal respiratory effort Auscultation: crackles bilateral base Cardio Rate: regular rate Rhythm: regular rhythm Heart Sounds: S1 normal and S2 normal; Negative for click, gallop, murmur or rub GI soft to palpation Extremity no pedal edema Skin no rashes or lesions noted Psych cooperative, affect normal and speech normal Assessment & Plan Assessment/Plan (1) Acute heart failure with reduced ejection fraction (HFrEF, <= 40%): PLAN: Patient has a history of LV dysfunction with a remote myocardial infarction an EF of 40% at the time of her previous intervention with a circumflex stent. She now comes in with ejection fraction estimated in the 15% range and abnormal stress test showing diffuse ischemic changes. The patient is tolerating losartan 50 mg daily and Coreg 3.125 mg twice daily she is also on IV Lasix and is diuresed well. The patient appears to be clinically compensated from her LV dysfunction. (2) Paroxysmal atrial fibrillation: PLAN: Patient remains in sinus rhythm she has not had any episodes of her paroxysmal atrial fibrillation since admission. The patient has not been on oral anticoagulation therapy in her home environment. She has been on an aspirin a day. She was supposed to be on Xarelto 10 mg daily however she has not taken it for over the past month due to financial constraints. Currently she remains in sinus rhythm. (3) Atherosclerotic heart disease of [place] coronary artery without angina pectoris: QUALIFIERS: [place] vs. transplanted heart: [place] heart Qualified Code(s): I25.10 - Atherosclerotic heart disease of [place] coronary artery without angina pectoris PLAN: Patient has known history of coronary disease status post stenting of the circumflex in 2010 at the time of an acute posterior wall myocardial infarction. She has had no recurrence of angina and not been cathed since that initial catheterization. (4) Chest pain: QUALIFIERS: Chest pain type: unspecified Qualified Code(s): R07.9 - Chest pain, unspecified PLAN: The patient's chest discomfort on this presentation very well may have been heart failure her enzymes are negative x 2 sets at 34 and 36. However if she has a stress test that shows posterior lateral scar with joseline-infarct ischemia in anterior and inferior ischemic changes on her pharmacologic nuclear stress test. The patient undergo a left heart catheterization tomorrow and further recommendations to be forthcoming. It is understood with the family and the patient that her memory deficits will have to be weighed and deciding the mechanism of revascularization should it come to her needing revascularization. PLAN: Plan 1. Continue with current medical therapy for guideline directed medical therapy for heart failure. 2. Will consider adding spironolactone prior to discharge. 3. Left heart catheterization tomorrow and further recommendations to follow. The cath is delayed due to the fact she got Xarelto yesterday. Charges/Coding Visit Charges Inpatient E&M: 42389 Subs Hosp L3
[2024-04-13] MEDS: Aspirin E.C. 81 MG Tablet PO (07:53)
[2024-04-13] MEDS: Pantoprazole Sodium 40 MG Tablet PO (07:53)
[2024-04-13] MEDS: Magnesium Chloride 64 MG Delay Rel.Tablet 128 MG PO (07:53)
[2024-04-13] MEDS: Vibegron 75 MG TABLET PO (07:53)
[2024-04-13] MEDS: DULoxetine Hcl 30 MG Capsule PO (07:53)
[2024-04-13] MEDS: Carvedilol 3.125 MG TABLET PO ×2 (07:53→20:17)
[2024-04-13] MEDS: Furosemide 40 MG/4 ML Vial IV ×2 (07:54→17:14)
[2024-04-13] MEDS: Insulin Glargine-YFGN 100 UNIT/ML Pen 40 UNIT SC (07:54)
[2024-04-13] MEDS: Potassium Chloride Oral Tablet 20 MEQ PO ×2 (07:54→20:16)
[2024-04-13] MEDS: Losartan Potassium 50 MG Tablet PO (07:58)
[2024-04-13 08:05] LABS: Magnesium 2.1 mg/dL (1.6-2.6); Phosphorus 3.3 mg/dL (2.5-4.9)
[2024-04-13 08:24] LABS: Bedside Glucose 287 mg/dL (74-106)
[2024-04-13 09:15] VITALS: BP 116/52; PULSE 79; RESP 16; TEMP 36.7; O2SAT 96
--- NOTE | 2024-04-13 11:31 | PN.HOSP_ITS ---
Reason for Visit Reason for Visit: Diagnoses Type 2 diabetes mellitus with diabetic chronic kidney disease (04/11/24) Type 2 diabetes mellitus with diabetic polyneuropathy (04/11/24) Type 2 diabetes mellitus with hyperglycemia (04/11/24) Obesity, unspecified (04/11/24) Essential (primary) hypertension (04/11/24) Atherosclerotic heart disease of [place] coronary artery without angina pectoris (04/11/24) Paroxysmal atrial fibrillation (04/11/24) Acute systolic (congestive) heart failure (04/11/24) Chronic systolic (congestive) heart failure (04/11/24) Chronic kidney disease, stage 3 unspecified (04/11/24) Ventricular septal defect (04/11/24) Other abnormalities of breathing (04/11/24) Chest pain, unspecified (04/11/24) Other amnesia (04/11/24) Tobacco use (04/11/24) 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 Patient was laying comfortably in bed, in no acute distress. Shortness of breath at rest or with exertion. Has diuresed well over the past few days. No other concerns today. Objective Data Objective Data Vital Signs: Vital Signs Temp Pulse Resp BP Pulse Ox O2 Del Method 98.0 F 79 16 116/52 L 96 Room Air 04/13/24 09:15 04/13/24 09:15 04/13/24 09:15 04/13/24 09:15 04/13/24 09:15 04/13/24 09:15 Oxygen Delivery Method Room Air Weight: 87 kg Body Mass Index (BMI) 29.1 Intake & Output: Intake and Output for Last 24 Hours 04/11/24 04/12/24 04/13/24 22:59 23:59 23:59 Intake Total 0 / 450 450 / 450 Balance 0 / 450 450 / 450 Lab / Micro Data 04/12/24 05:36 04/12/24 05:36 Labs: Laboratory Results - last 24 hr 04/12/24 11:38: POC Glucose 278 H 04/12/24 16:00: POC Glucose 390 H 04/12/24 21:18: POC Glucose 254 H 04/13/24 06:15: Phosphorus 3.3, Magnesium 2.1 04/13/24 07:46: POC Glucose 287 H Radiography Diagnostic Testing: Radiology Impression Echocardiogram 04/11/24 22:24 Interpretation Summary Moderate to severely dilated left ventricle. Severe LV generalized hypokinesis. Akinetic posterior lateral wall. Estimated LVEF 15%. Stage 3 diastolic dysfunction. The left atrium is severely enlarged. The right atrium is mildly enlarged. Mild-Moderate (1-2+) mitral valve insufficiency. Ordering Physician: Ramana Lau Performed By: Twin Lang RCS Rhythm Strip Rhythm Strip: Sinus Rhythm Rate: 83 Ectopy: PVC(s) Physical Exam Const alert, oriented x3, no apparent distress and average body habitus Constitutional Narrative: Elderly female, mildly fatigued appearing, otherwise laying comfortably in bed, conversing normally, in no acute distress. General Appearance: cooperative and comfortable HEENT normocephalic, head/scalp atraumatic, hearing grossly normal bilaterally, nasal mucous membranes and turbinates normal and moist oral mucous membranes Eyes PERRL, EOMs intact bilaterally and conjunctivae normal Neck full ROM Chest inspection of chest normal Resp normal respiratory effort, normal air movement, no use of accessory muscles and clear to auscultation bilaterally Cardio regular rate, regular rhythm, no murmurs and peripheral pulses 2+ throughout GI normal to inspection, nondistended, normoactive bowel sounds, soft to palpation, non-tender and non-distended Back/Spine normal ROM Extremity normal to inspection, full ROM and no pedal edema Skin no rashes or lesions noted Psych mental status grossly normal Assessment & Plan Assessment/Plan (1) Acute on chronic HFrEF (heart failure with reduced ejection fraction): PLAN: Plan Patient is a 68-year-old female who presented [facility] ED on 04/11/2024 with chest pain and worsening shortness of breath. 1. Acute on chronic HFrEF ? Cardiology following. Presented with chest pain and worsening shortness of breath. Chest imaging showed cardiomegaly with moderate bilateral pleural effusions. Echo showed severely dilated LV with severe LV generalized hypokinesis and moderate LV hypertrophy, akinetic posterior lateral wall, EF 15%. Last echo in 2018 showed EF 40%. Stress test showed reversible ischemia of anterior and inferior angel noted. BNP 830. Has a good diuresis with IV Lasix. Planning for left heart cath tomorrow, n.p.o. at midnight. Continue Coreg initiated by cardiology. Continue home losartan. Further recommendations per cardiology. 2. History of CAD with stenting, hypertension, hyperlipidemia ? History of acute posterolateral wall microinfarction in 2010 with stent placement. Had mild disease in LAD and RCA at that time. No heart catheterization since then. Continue Coreg and losartan as noted above. Continue aspirin, holding Xarelto for now with plan for heart cath as noted above. Continue statin. 3. Paroxysmal A-fib ? Holding home Xarelto for now with plan for left heart cath as above, will restart per cardiology recommendations. 4. Medication nonadherence ? Complicates hospital course, care and prognosis. Chronic medical conditions: ? Type 2 diabetes mellitus with neuropathy: Holding home oral hypoglycemics. Continue insulin glargine daily and scheduled insulin with meals plus sliding scale as needed for now. Continue home gabapentin. ? GERD: Continue home PPI. ? Anxiety/depression: Stable. Continue home duloxetine. ? Overactive bladder: Continue home vibegron. DVT prophylaxis: Not indicated, on Xarelto CODE STATUS: Full code, verified Expected disposition: Home, 2 to 3 days Total clinical time spent by myself addressing the patient's medical issues, reviewing all the data, and collaborating with patient's care team: 35 minutes. Charges/Coding Visit Charges Inpatient E&M: 83992 Subs Hosp L2
[2024-04-13 12:36] LABS: Bedside Glucose 327 mg/dL (74-106)
[2024-04-13 15:15] VITALS: BP 114/47; PULSE 77; RESP 18; TEMP 36.7; O2SAT 92
[2024-04-13] MEDS: 0.9% Saline Lock 10 ML Syringe IV (17:14)
[2024-04-13 18:00] LABS: Bedside Glucose 271 mg/dL (74-106)
[2024-04-13] MEDS: Acetaminophen 325 MG Tablet 650 MG PO (20:16)
[2024-04-13] MEDS: Gabapentin 300 MG Capsule PO (20:16)
[2024-04-13] MEDS: Atorvastatin Calcium 40 MG Tablet PO (20:16)
[2024-04-13] MEDS: traZODone 50 MG Tablet PO (20:18)
[2024-04-13] MEDS: Donepezil HCl 10 MG Tablet PO (20:18)
[2024-04-13 22:00] VITALS: BP 123/64; PULSE 76; RESP 18; TEMP 36.1; O2SAT 97
[2024-04-14] VITALS (13 sets, daily range): BP systolic 111–126; BP diastolic 51–74; PULSE 65–78; RESP 16–18; TEMP 35.9–36.6; O2SAT 92–96; BMI 30.1
--- NOTE | 2024-04-14 05:55 | EKG12_ITS ---
Test Reason : AM EKG Blood Pressure : */* mmHG Vent. Rate : 72 BPM Atrial Rate : 72 BPM P-R Int : 232 ms QRS Dur : 124 ms QT Int : 442 ms P-R-T Axes : 68 55 163 degrees QTcB Int : 483 ms Sinus rhythm with 1st degree A-V block Non-specific intra-ventricular conduction delay Minimal voltage criteria for LVH, may be normal variant ( [place] product ) ST & T wave abnormality, consider inferolateral ischemia Abnormal ECG When compared with ECG of 12-Apr-2024 05:41, T wave inversion less evident in Anterior leads Confirmed by Aba Mckeon ([id number]), clinical editor JC MOYER ([id number]) on 04/14/2024 1:10:43 PM Referred By: Confirmed By: Aba Mckeon
[2024-04-14] MEDS: Losartan Potassium 50 MG Tablet PO (06:04)
[2024-04-14] MEDS: Carvedilol 3.125 MG TABLET PO (06:04)
[2024-04-14] MEDS: Aspirin E.C. 81 MG Tablet PO (06:04)
[2024-04-14 06:06] LABS: Bedside Glucose 269 mg/dL (74-106)
[2024-04-14 06:25] LABS: Bedside Glucose 349 mg/dL (74-106)
[2024-04-14] MEDS: Insulin Lispro 100 UNIT/ML INSULN.PEN SC ×3 (06:45→20:54)
--- NOTE | 2024-04-14 08:24 | PCM.PN.CARD ---
Subjective Subjective Patient is resting comfortably in bed without any complaints this morning. Her daughter is at the bedside and the patient is scheduled for a left heart catheterization this morning. Objective Data Vital Signs: Vital Signs Temp Pulse Resp BP Pulse Ox O2 Del Method 96.7 F L 75 18 111/52 L 94 Room Air 04/14/24 06:00 04/14/24 06:00 04/14/24 06:00 04/14/24 06:00 04/14/24 06:00 04/14/24 07:59 Oxygen Delivery Method Room Air Weight: 197 lb 15.602 oz Body Mass Index (BMI) 30.1 Intake & Output: Intake and Output for Last 24 Hours 04/12/24 04/13/24 04/14/24 23:59 23:59 23:59 Intake Total 450 / 450 240 / 240 Balance 450 / 450 240 / 240 Lab / Micro Data Attestation: I reviewed the patient's lab results. Lab results narrative: Elevated glucose was treated with sliding scale insulin. 04/14/24 08:48 04/14/24 08:48 Labs: Laboratory Results - last 24 hr 04/13/24 07:46: POC Glucose 287 H 04/13/24 12:06: POC Glucose 327 H 04/13/24 17:09: POC Glucose 271 H 04/13/24 20:13: POC Glucose 269 H 04/14/24 06:01: POC Glucose 349 H Rhythm Strip Rhythm Strip: Sinus Rhythm Rate: 81 Cardiology Labs/Tests Rhythm: EKG: ECHO: Stress Test: Cardiac Cath: PCI: CT Surgery: Holter monitor: EPS: PPM: CXR: Chest CT Scan: Physical Exam Const alert HEENT normocephalic Eyes EOMs intact bilaterally Neck no JVD Neck Narrative: No JVD at 30 degrees in the bed. Chest inspection of chest normal Resp normal respiratory effort Cardio regular rate and regular rhythm Extremity no pedal edema Psych cooperative and affect normal Assessment & Plan Assessment/Plan (1) Acute on chronic HFrEF (heart failure with reduced ejection fraction): PLAN: Patient appears to be compensated she is diuresed well and is tolerating the addition of guideline directed medical therapy. Her stress test showed lateral wall infarct with joseline-infarct ischemia and ischemia in the anterior and inferior segments. The patient is scheduled for left heart catheterization this morning further recommendations to be forthcoming to completion of that cath. LVEF 25-30% will adjust meds. Patient cannot afford Ozempic or Xarelto. Was on xarelto for strokes in the past but has not taken for several months due to expense. She has no A.fib on this admit in the face of decompensated CHF. Will titrate Coreg, Losartan, Lasix in the ambulatory setting. start spironolactone today. Needs f/u with [facility] in one week for med titration and BMP. I had a detailed discussion with the patient, son, and daughter concerning management of heart failure in the home environment. We went over daily weights volume restrictions and utilizing extra Lasix for 3 pound weight gain. (2) Hypertension: QUALIFIERS: Hypertension type: unspecified Qualified Code(s): I10 - Essential (primary) hypertension PLAN: Blood pressure is well-controlled on her current medical therapy. (3) Paroxysmal atrial fibrillation: PLAN: Patient remains in sinus rhythm since her admission. (4) Atherosclerotic heart disease of [place] coronary artery without angina pectoris: QUALIFIERS: [place] vs. transplanted heart: [place] heart Qualified Code(s): I25.10 - Atherosclerotic heart disease of [place] coronary artery without angina pectoris PLAN: Patient has a known history of stent to the circumflex at the time of the posterior wall infarct in 2010. She now has an abnormal stress test showing ischemia in the distribution of all 3 major vessels. Left heart catheterization is scheduled for this morning. Her memory deficits may impact the recommendations for subsequent therapy. Cath reveals NUTRITION AIDE of the RCA, patent stent in the circ, and 50% LAD stenosis with negative FFR. there is a small 2mm Diag with sever disease. Recommend medical therapy with GDMT for her LV dysfunction. Meds adjusted as noted below. PLAN: Plan 1. Stop potassium and Xarelto 2. Increase Coreg to 6.25mg bid 3. Add spironolactone 25mg daily. 4. BMP in AM and in one week in the office 5. F/U in [facility] Office with [facility] in One week and see Dr. Mckeon in 2Weeks. 6. Will need limited Echo after 2-3 months of maximal tolerated GDMT for LVD. 7. Avoid expensive medical therapy if possible due to patient financial situation. 8. Will readdress Xartelto if PAF documented - non documented on this admit. Charges/Coding Visit Charges Inpatient E&M: 94696 Subs Hosp L3
[2024-04-14 08:54] LABS: Hematocrit 35.6 % (37-47); Hemoglobin 11.7 g/dL (12.0-15.0); Mean Corp Hgb Conc 32.9 g/dL (32-36); Mean Corpuscular Hgb 28.2 pg (27.0-32.0); Mean Corpuscular Volume 85.8 fL (81-99); Platelet Count 214 K/mm3 (150-450); RBC Distribution Width CV 13.4 % (11.6-14.6); RBC Distribution Width SD 41.5 fl (35.1-43.9); Red Blood Count 4.15 M/mm3 (4.2-5.4); White Blood Count 5.8 K/mm3 (4.4-11.0)
[2024-04-14] MEDS: 0.9% Saline Lock 10 ML Syringe IV (09:11)
[2024-04-14] MEDS: Ondansetron 4 MG/2 ML Vial IV (09:11)
[2024-04-14 09:21] LABS: Anion Gap 4 (5-15); BUN 25 mg/dL (7-18); BUN/Creat Ratio 23.1 RATIO (10-20); Chloride 106 mmol/L (98-107); Creatinine, Serum 1.08 mg/dL (0.55-1.02); EST Glomerular Filtration Rate 53 mL/min (>60); Est Glom Filt Rate - Afr Amer 65 mL/min (>60); Estimated Creatinine Clearance 57.63 ml/min; Glucose 315 mg/dL (74-106); Potassium 4.1 mmol/L (3.5-5.1); Sodium Level 137 mmol/L (136-145)
[2024-04-14 11:52] LABS: Bedside Glucose 283 mg/dL (74-106)
--- NOTE | 2024-04-14 11:59 | PCM.PN.HOSP ---
Reason for Visit Reason for Visit: Diagnoses Type 2 diabetes mellitus with diabetic chronic kidney disease (04/11/24) Type 2 diabetes mellitus with diabetic polyneuropathy (04/11/24) Type 2 diabetes mellitus with hyperglycemia (04/11/24) Obesity, unspecified (04/11/24) Essential (primary) hypertension (04/11/24) Atherosclerotic heart disease of [place] coronary artery without angina pectoris (04/11/24) Paroxysmal atrial fibrillation (04/11/24) Acute systolic (congestive) heart failure (04/11/24) Chronic systolic (congestive) heart failure (04/11/24) Acute on chronic systolic (congestive) heart failure (04/11/24) Chronic kidney disease, stage 3 unspecified (04/11/24) Ventricular septal defect (04/11/24) Other abnormalities of breathing (04/11/24) Chest pain, unspecified (04/11/24) Other amnesia (04/11/24) Tobacco use (04/11/24) intermediate (current) use of insulin (04/11/24) Patient's noncompliance with other medical treatment and regimen due to unspecified reason (04/11/24) Presence of coronary angioplasty implant and graft (04/11/24) Subjective Subjective Saw patient at bedside this morning, several family members present. Patient was sitting up comfortably in bed, in no acute distress. Her main concern is that she is hungry and she and family are hoping that the heart cath will be done soon. She otherwise feels similar to yesterday. No other concerns. Objective Data Objective Data Vital Signs: Vital Signs Temp Pulse Resp BP Pulse Ox O2 Del Method 96.7 F L 75 18 111/52 L 94 Room Air 04/14/24 11:36 04/14/24 11:36 04/14/24 11:36 04/14/24 11:36 04/14/24 11:36 04/14/24 11:36 Oxygen Delivery Method Room Air Weight: 89.8 kg Body Mass Index (BMI) 30.1 Intake & Output: Intake and Output for Last 24 Hours 04/12/24 04/13/24 04/14/24 23:59 23:59 23:59 Intake Total 450 / 450 240 / 240 60 / 60 Balance 450 / 450 240 / 240 60 / 60 Lab / Micro Data 04/14/24 08:48 04/14/24 08:48 Labs: Laboratory Results - last 24 hr 04/13/24 12:06: POC Glucose 327 H 04/13/24 17:09: POC Glucose 271 H 04/13/24 20:13: POC Glucose 269 H 04/14/24 06:01: POC Glucose 349 H 04/14/24 08:48: WBC 5.8, RBC 4.15 L, Hgb 11.7 L, Hct 35.6 L, MCV 85.8, MCH 28.2, MCHC 32.9, RDW Std Deviation 41.5, RDW Coeff of [place] 13.4, Plt Count 214, MPV 10.0, Sodium 137, Potassium 4.1, Chloride 106, Carbon Dioxide 26.0, Anion Gap 4 L, BUN 25 H, Creatinine 1.08 H, Estim Creat Clear Calc 57.63, Est GFR (MDRD) Af Amer 65, Est GFR (MDRD) Non-Af 53 L, BUN/Creatinine Ratio 23.1 H, Glucose 315 H, Calcium 9.0 04/14/24 11:34: POC Glucose 283 H Rhythm Strip Rhythm Strip: Sinus Rhythm Rate: 81 Ectopy: PVC(s) Physical Exam Const alert, oriented x3, no apparent distress and average body habitus Constitutional Narrative: Elderly female, mildly fatigued appearing, otherwise sitting up comfortably in bed, conversing normally, in no acute distress. General Appearance: cooperative and comfortable HEENT normocephalic, head/scalp atraumatic, hearing grossly normal bilaterally, nasal mucous membranes and turbinates normal and moist oral mucous membranes Eyes PERRL, EOMs intact bilaterally and conjunctivae normal Neck full ROM Chest inspection of chest normal Resp normal respiratory effort, normal air movement, no use of accessory muscles and clear to auscultation bilaterally Cardio regular rate, regular rhythm, no murmurs and peripheral pulses 2+ throughout GI normal to inspection, nondistended, normoactive bowel sounds, soft to palpation, non-tender and non-distended Back/Spine normal ROM Extremity normal to inspection, full ROM and no pedal edema Skin no rashes or lesions noted Psych mental status grossly normal Assessment & Plan Assessment/Plan (1) Acute on chronic HFrEF (heart failure with reduced ejection fraction): PLAN: Plan Patient is a 68-year-old female who presented [facility] ED on 04/11/2024 with chest pain and worsening shortness of breath. 1. Acute on chronic HFrEF ? Cardiology following. Presented with chest pain and worsening shortness of breath. Chest imaging showed cardiomegaly with moderate bilateral pleural effusions. Echo showed severely dilated LV with severe LV generalized hypokinesis and moderate LV hypertrophy, akinetic posterior lateral wall, EF 15%. Last echo in 2019 showed EF 40%. Stress test showed reversible ischemia of anterior and inferior angel noted. BNP 830. Has had good diuresis with IV Lasix and is stable on room air as of 04/14. Planning for left heart cath today, will follow-up on result. Continue Coreg and losartan. Further recommendations per cardiology. 2. History of CAD with stenting, hypertension, hyperlipidemia ? History of acute posterolateral wall microinfarction in 2010 with stent placement. Had mild disease in LAD and RCA at that time. No heart catheterization since then. Continue Coreg and losartan as noted above. Continue aspirin, holding Xarelto for now with plan for heart cath as noted above. Continue statin. 3. Paroxysmal A-fib ? Holding home Xarelto for now with plan for left heart cath as above, will restart per cardiology recommendations. 4. Medication nonadherence ? Complicates hospital course, care and prognosis. Chronic medical conditions: ? Type 2 diabetes mellitus with neuropathy: Holding home oral hypoglycemics. Continue insulin glargine daily and scheduled insulin with meals plus sliding scale as needed for now. Continue home gabapentin. ? GERD: Continue home PPI. ? Anxiety/depression: Stable. Continue home duloxetine. ? Overactive bladder: Continue home vibegron. ? Tobacco abuse: Nicotine patch ordered per patient request. DVT prophylaxis: Not indicated, on Xarelto CODE STATUS: Full code, verified Expected disposition: Home, 1 to 2 days Total clinical time spent by myself addressing the patient's medical issues, reviewing all the data, and collaborating with patient's care team: 35 minutes. Charges/Coding Visit Charges Inpatient E&M: 62124 Subs Hosp L2
--- NOTE | 2024-04-14 16:26 | CL.D_ITS ---
Patient Name: WINIFRED ROUSE Study Date: 04/14/2024 Performing: Albaro Rodriguez MD Ht: 68 inches 172.72 cm : 1955 Wt: 197.98 lbs 89.8 kg Age: 68 Gender: female BSA: 2.04 PROCEDURE(S) PERFORMED DC01-(94536)LHC/COR/LV IC10-(13034)FFR, CORONARY OR GRAFT, INITIAL VESSEL CLINICAL PROFILE AND INDICATIONS Indications: New Onset Angina <= 2 months Heart Failure: None Stress/Imaging Stress Test w/SPECT MPI: Yes Result: Positive High RiskStress Test with SPECT MPI: Positive High Risk CAD Presentations: Unstable angina. CONCLUSIONS 50-60% Prox/Mid LAD (iFR 0.94); 70% ostial D1 (small 2 mm vessel) Stent to LCX patent PROGRAM AND RESEARCH COORDINATOR distal RCA; RPDA filling retrogradely via collaterals from left system RECOMMENDATIONS Medical therapy DESCRIPTION OF PROCEDURE The patient arrived to the procedure lab. The risks and benefits of the procedure as well as a full description of our services here and current unavailability of surgical backup were fully explained to the patient and/or their significant other prior to the catheterization. The Timeout was completed, verifying the correct patient and procedure. The patient's procedural site was prepped and draped in the usual fashion. Local anesthetic was given subcutaneously to right radial region with Lidocaine 2%. Using a modified Seldinger technique, arterial access was obtained via the right radial artery, a 6Fr sheath was inserted. Left Coronary Artery selective angiography was performed in multiple views using a 5 Fr. 4.0 [place] catheter. Right Coronary Artery selective angiography was then performed in multiple views using a 5 Fr. 4.0 [place] catheter. Left Ventriculography was performed in ESCALANTE projection using a 5 Fr. [place] catheter. LV to AO pullback pressures were then recorded.The arterial sheath was pulled and a TR Band was applied for hemostasis 9 cc of air CORONARY ANGIOGRAPHY DOMINANCE: Right Dominant LEFT HEART ASSESSMENT Left Ventricular Ejection Fraction: by LV Gram 25 % LVEDP: 31 mmHg LEFT MAIN: Angiographically normal LEFT ANTERIOR DESCENDING ARTERY: LAD: Calcified 60% Proximal lesion in LAD DIAGONAL 1: Tubular 70% Ostial lesion in DIAG1 CIRCUMFLEX ARTERY: Stent to Prox LCX patent RIGHT CORONARY ARTERY: RCA: Tubular 90% Mid lesion in RCA Calcified 100% Distal lesion in RCA COLLATERAL FLOW: Collateral flow from SEP to RPLS COMPLICATIONS No Complications PROCEDURE MEDICATIONS Fentanyl 50 mcg IV Versed 1 mg IV Oxygen: 2 L/min via nasal cannula Heparin 5000 unit(s) IV 04/14/2024 15:59:12 SUMMARY OF HEMODYNAMIC DATA Time AIR REST ECG 15:15:45 AO 109/68 (93) SA 15:32:10 LV 139/20, 29 15:48:54 LV 142/22, 31 15:49:03 LVp 143/27, 35 15:52:33 AOp 144/80 (105) 15:52:40 16:24:32 Signed By Albaro Rodriguez MD On 04/14/2024 16:25:35 Albaro Rodriguez MD
[2024-04-14] MEDS: Pantoprazole Sodium 40 MG Tablet PO (16:49)
[2024-04-14] MEDS: Vibegron 75 MG TABLET PO (16:49)
[2024-04-14] MEDS: Magnesium Chloride 64 MG Delay Rel.Tablet 128 MG PO (16:50)
[2024-04-14] MEDS: DULoxetine Hcl 30 MG Capsule PO (16:50)
[2024-04-14 17:16] LABS: Bedside Glucose 241 mg/dL (74-106)
[2024-04-14] MEDS: Insulin Lispro 100 UNIT/ML INSULN.PEN 12 UNIT SC (18:02)
[2024-04-14] MEDS: Atorvastatin Calcium 40 MG Tablet PO (20:49)
[2024-04-14] MEDS: traZODone 50 MG Tablet PO (20:49)
[2024-04-14] MEDS: Carvedilol 6.25 MG Tablet PO (20:49)
[2024-04-14] MEDS: Donepezil HCl 10 MG Tablet PO (20:50)
[2024-04-14] MEDS: Gabapentin 300 MG Capsule PO (20:50)
[2024-04-14] MEDS: MELATONIN 3 MG TABLET PO (20:50)
[2024-04-14 22:09] LABS: Bedside Glucose 297 mg/dL (74-106)
[2024-04-15 02:05] VITALS: BP 104/62; PULSE 75; RESP 14; TEMP 36.4; O2SAT 97
[2024-04-15] MEDS: Insulin Lispro 100 UNIT/ML INSULN.PEN SC ×2 (06:34→11:39)
[2024-04-15 07:01] LABS: Anion Gap 5 (5-15); BUN 25 mg/dL (7-18); BUN/Creat Ratio 23.4 RATIO (10-20); Calcium,Total 9.1 mg/dL (8.5-10.1); Chloride 104 mmol/L (98-107); Creatinine, Serum 1.07 mg/dL (0.55-1.02); EST Glomerular Filtration Rate 54 mL/min (>60); Est Glom Filt Rate - Afr Amer 65 mL/min (>60); Estimated Creatinine Clearance 58.14 ml/min; Glucose 275 mg/dL (74-106); Potassium 4.4 mmol/L (3.5-5.1); Sodium Level 135 mmol/L (136-145)
--- NOTE | 2024-04-15 08:02 | PCM.PN.CARD ---
Subjective Subjective The patient is resting flat in the bed with no shortness of breath. O2 saturations are 97% on room air hemodynamically the patient is stable with blood pressures in the 105?125 range systolic. Heart rate is 70 to 80 bpm in sinus rhythm. The patient's had no evidence of atrial fibrillation during this hospitalization. Objective Data Vital Signs: Vital Signs Temp Pulse Resp BP Pulse Ox O2 Del Method 97.6 F L 75 14 104/62 97 Room Air 04/15/24 02:05 04/15/24 02:05 04/15/24 02:05 04/15/24 02:05 04/15/24 02:05 04/15/24 02:05 Oxygen Delivery Method Room Air Weight: 197 lb 12.074 oz Body Mass Index (BMI) 30.0 Intake & Output: Intake and Output for Last 24 Hours 04/13/24 04/14/24 04/15/24 23:59 23:59 23:59 Intake Total 240 / 240 300 / 300 Balance 240 / 240 300 / 300 Lab / Micro Data Attestation: I reviewed the patient's lab results. 04/14/24 08:48 04/15/24 05:54 Labs: Laboratory Results - last 24 hr 04/14/24 08:48: WBC 5.8, RBC 4.15 L, Hgb 11.7 L, Hct 35.6 L, MCV 85.8, MCH 28.2, MCHC 32.9, RDW Std Deviation 41.5, RDW Coeff of [place]aki[place] 13.4, Plt Count 214, MPV 10.0, Sodium 137, Potassium 4.1, Chloride 106, Carbon Dioxide 26.0, Anion Gap 4 L, BUN 25 H, Creatinine 1.08 H, Estim Creat Clear Calc 57.63, Est GFR (MDRD) Af Amer 65, Est GFR (MDRD) Non-Af 53 L, BUN/Creatinine Ratio 23.1 H, Glucose 315 H, Calcium 9.0 04/14/24 11:34: POC Glucose 283 H 04/14/24 16:44: POC Glucose 241 H 04/14/24 20:53: POC Glucose 297 H 04/15/24 05:54: Sodium 135 L, Potassium 4.4, Chloride 104, Carbon Dioxide 27.0, Anion Gap 5, BUN 25 H, Creatinine 1.07 H, Estim Creat Clear Calc 58.14, Est GFR (MDRD) Af Amer 65, Est GFR (MDRD) Non-Af 54 L, BUN/Creatinine Ratio 23.4 H, Glucose 275 H, Calcium 9.1 Rhythm Strip Rhythm Strip: Sinus Rhythm Rate: 70 Ectopy: PVC(s) Cardiology Labs/Tests 04/14/24 08:48: WBC 5.8, RBC 4.15 L, Hgb 11.7 L, Hct 35.6 L, MCV 85.8, MCH 28.2, MCHC 32.9, Plt Count 214, MPV 10.0, Sodium 137, Potassium 4.1, Chloride 106, Carbon Dioxide 26.0, Anion Gap 4 L, BUN 25 H, Creatinine 1.08 H, Est GFR (MDRD) Af Amer 65, Est GFR (MDRD) Non-Af 53 L, BUN/Creatinine Ratio 23.1 H, Glucose 315 H, Calcium 9.0 04/15/24 05:54: Sodium 135 L, Potassium 4.4, Chloride 104, Carbon Dioxide 27.0, Anion Gap 5, BUN 25 H, Creatinine 1.07 H, Est GFR (MDRD) Af Amer 65, Est GFR (MDRD) Non-Af 54 L, BUN/Creatinine Ratio 23.4 H, Glucose 275 H, Calcium 9.1 Rhythm: EKG: ECHO: Stress Test: Cardiac Cath: PCI: CT Surgery: Holter monitor: EPS: PPM: CXR: Chest CT Scan: Physical Exam Const alert Orientation / Consciousness: awake HEENT normocephalic Eyes EOMs intact bilaterally Neck no JVD Chest inspection of chest normal Resp normal respiratory effort Auscultation: crackles right (Patient was asleep with her right side down.) base Cardio Rate: regular rate Rhythm: regular rhythm Heart Sounds: S1 normal and S2 normal; Negative for click, gallop, murmur or rub GI soft to palpation Extremity no pedal edema Skin no rashes or lesions noted Psych Psych Narrative: Patient answers questions appropriately but she does have some memory deficits. Assessment & Plan Assessment/Plan (1) Acute heart failure with reduced ejection fraction (HFrEF, <= 40%): PLAN: Patient presented with what appears to be in retrospect primarily congestive heart failure. Her cardiac enzymes were negative for ischemia and her chest symptoms resolved with diuresis. The patient was instituted on guideline directed medical therapy and titrated aggressively in the hospital. Her blood pressure and heart rate are tolerating the Coreg 6.25 mg twice daily, losartan 50 mg daily, Lasix 40 mg daily, and spironolactone 25 mg daily. From a cardiovascular standpoint the patient can be discharged to home. She should follow-up in the [facility] office in 1 week with one of our advanced practitioners. Please see the detailed recommendation for follow-up in my note from 04/14/2024. (2) CVA (cerebral vascular accident): QUALIFIERS: CVA mechanism: unspecified Qualified Code(s): I63.9 - Cerebral infarction, unspecified PLAN: Patient had a remote CVAs that the family's tells me were related to ischemic etiologies. She does have a history in her chart of paroxysmal atrial fibrillation but I cannot find it documented. The patient had been suggested to be on Xarelto but she was unable to afford it. There is no definitive evidence of atrial fibrillation on any rhythm strips in her chart and the family is not aware of her being in atrial fibrillation. She was recommended to be on Xarelto by her neurologist. (3) Paroxysmal atrial fibrillation: PLAN: I cannot locate any definitive evidence of episodes of atrial fibrillation. And when the patient came in the hospital in an extremis with heart failure she was in sinus rhythm and remained in sinus rhythm throughout this hospitalization. Given the lack of evidence of atrial fibrillation at this time and the patient's financial constraints I would not recommend pursuing long-term oral anticoagulation. (4) Atherosclerotic heart disease of [place] coronary artery without angina pectoris: QUALIFIERS: [place] vs. transplanted heart: [place] heart Qualified Code(s): I25.10 - Atherosclerotic heart disease of [place] coronary artery without angina pectoris PLAN: The patient's cath yesterday revealed a patent stented segment in the circumflex LAD had a 50% stenosis with normal FFR and a small diagonal branch with severe disease it was too small to intervene upon. The right coronary artery has a appearance of a chronic total occlusion with collateral flow. The patient did not have any enzyme leak on presentation with her heart failure episode. Will continue to treat with an aspirin a day and clinically appropriate medical regiment to treat her guideline directed medical therapy for heart failure. PLAN: Plan 1. Please see my note from 04/14/2024 with a detailed outline of follow-up recommendations. 2. From a cardiovascular PET standpoint the patient can be discharged to home. Charges/Coding Visit Charges Inpatient E&M: 65844 Subs Hosp L3
[2024-04-15] MEDS: Insulin Lispro 100 UNIT/ML INSULN.PEN 12 UNIT SC ×2 (09:09→11:38)
[2024-04-15] MEDS: Insulin Glargine-YFGN 100 UNIT/ML Pen 40 UNIT SC (09:10)
[2024-04-15] MEDS: Pantoprazole Sodium 40 MG Tablet PO (09:14)
[2024-04-15] MEDS: Vibegron 75 MG TABLET PO (09:14)
[2024-04-15] MEDS: Aspirin E.C. 81 MG Tablet PO (09:14)
[2024-04-15] MEDS: Losartan Potassium 50 MG Tablet PO (09:14)
[2024-04-15] MEDS: DULoxetine Hcl 30 MG Capsule PO (09:14)
[2024-04-15] MEDS: Furosemide 40 MG Tablet PO (09:14)
[2024-04-15] MEDS: Magnesium Chloride 64 MG Delay Rel.Tablet 128 MG PO (09:14)
[2024-04-15] MEDS: Carvedilol 6.25 MG Tablet PO (09:14)
[2024-04-15] MEDS: Spironolactone 25 MG Tablet PO (09:15)
[2024-04-15 09:22] VITALS: BP 114/60; PULSE 77; RESP 18; TEMP 36.2; O2SAT 95
--- NOTE | 2024-04-15 11:08 | DCINST_ITS ---
Discharge Instructions Diet Discharge Diet: Low fat / Low cholesterol, 1800 Calorie Control Diet and 2000 mg Sodium Diet Activity Discharge Activity: Return to Normal Activity Weight Bearing Status: Weight bearing as tolerated Dressing / Incision Call your doctor if you observe: Fever of 101 or Higher, Coldness, Increased Pain, Numbness or Tingling, Change in Color, Inability to urinate, Inability to have a bowel movement, Shortness of breath, Dizziness, Fainting spells, Swelling in the ankles, Chest pain, Prolonged hiccupping, Increased palpitations (irregular heartbeat) and Calf discomfort Follow Up Care When: IN 2 WEEKS Test Results: Test results from this visit will be discussed in further detail at your follow- up appointment, if applicable. Discharge Plan Admission Admit Date/Time: 04/11/24 22:10 Primary Reason for Your Visit: CAD, chronic HFrEF Attending Provider: Jareth Holley Primary Care Provider: Obed Scott Consulting Providers: Ramana Lau; Seferino Lockett; Ramana Becker; Howard Joe Discharge Orders/Prescriptions Prescriptions: New furosemide 40 mg Tablet 40 mg PO DAILY 30 Days Qty: 30 2RF Rx Instructions: Take extra 40 mg dose at 5 PM for increased leg swelling or weight gain 5 pounds in 1 week. carvedilol 6.25 mg Tablet 6.25 mg PO BID 30 Days Qty: 60 2RF Rx Instructions: Hold for heart less than 50 or systolic blood pressure less than 100 mmHg. spironolactone 25 mg Tablet 25 mg PO DAILY 30 Days Qty: 30 2RF Rx Instructions: Hold for serum potassium more than 5.0 Continued (DME) lancets [FreeStyle Lancets] 28 gauge misc See Rx Instructions .MEDSUPPLY Qty: 200 3RF Rx Instructions: check blood glucose 3x daily for type 2 DM insulin aspart U-100 [Novolog FlexPen U-100 Insulin] 100 unit/mL (3 mL) insulin pen 20 unit subcut TID 90 Days Qty: 54 1RF Tresiba FlexTouch U-100 100 unit/mL (3 mL) insulin pen 50 unit subcut DAILY 90 Days Qty: 45 1RF Gemtesa 75 mg tablet 75 mg PO DAILY Qty: 30 0RF Ozempic 0.25 mg or 0.5 mg (2 mg/3 mL) pen injector 0.25 mg subcut QWEEK Qty: 3 0RF Rx Instructions: for 4 weeks aspirin 81 MG tablet,delayed release (DR/EC) 81 mg PO DAILY (DME) walker Misc See Rx Instructions .ROUTE .MEDSUPPLY Qty: 1 0RF Rx Instructions: As directed (DME) pen needle, diabetic [BD Ultra-Fine Short Pen Needle] 31 gauge x 5/16 needle See Rx Instructions .ROUTE .MEDSUPPLY Qty: 100 5RF Rx Instructions: bid (DME) back brace Misc See Rx Instructions .ROUTE .MEDSUPPLY Qty: 1 0RF Rx Instructions: As directed for back pain (DME) lancets [Accu-Chek Softclix Lancets] Mis See Rx Instructions .ROUTE .MEDSUPPLY Qty: 200 4RF Rx Instructions: Check blood sugar 3 times a day (DME) True Metrix Level 1 Solution See Rx Instructions .ROUTE .MEDSUPPLY Qty: 1 0RF Rx Instructions: As directed for type 2 DM (DME) True Metrix Glucose Test Strip Strip See Rx Instructions .ROUTE .MEDSUPPLY Qty: 300 3RF Rx Instructions: three times daily (DME) pen needle, diabetic [Easy Comfort Pen [place]] 32 gauge x 5/32 needle See Rx Instructions .ROUTE .MEDSUPPLY Qty: 200 3RF Rx Instructions: As directed (DME) Lift Chair See Rx Instructions .Route .MEDSUPPLY Qty: 1 0RF Rx Instructions: As directed (DME) FreeStyle Monie 2 [place] Misc See Rx Instructions .Route Qty: 1 5RF Rx Instructions: As directed Xarelto 10 mg tablet 10 mg PO DAILY Qty: 90 2RF Rx Instructions: for 35 days (DME) FreeStyle Monie 2 Sensor Kit See Rx Instructions .Route Qty: 1 1RF Rx Instructions: As directed losartan 50 mg tablet 50 mg PO DAILY Qty: 90 0RF gabapentin 300 mg capsule 300 mg PO QHS Qty: 90 0RF omeprazole 40 mg capsule,delayed release(DR/EC) 40 mg PO DAILY Qty: 90 0RF atorvastatin 40 mg tablet See Rx Instructions .ROUTE .COMPLEX Qty: 30 3RF Dose Instruction: TAKE 1 TABLET BY MOUTH AT BEDTIME FOR CHOLESTEROL Rx Instructions: TAKE 1 TABLET BY MOUTH AT BEDTIME FOR CHOLESTEROL donepezil 10 mg tablet See Rx Instructions .ROUTE .COMPLEX Qty: 30 3RF Dose Instruction: TAKE 1 TABLET BY MOUTH ONCE DAILY AT BEDTIME Rx Instructions: TAKE 1 TABLET BY MOUTH ONCE DAILY AT BEDTIME glipizide 10 mg tablet extended release 24hr 10 mg PO BID Qty: 60 0RF trazodone 50 mg tablet 50 mg PO QHS Qty: 30 0RF duloxetine 30 mg capsule,delayed release(DR/EC) 30 mg PO DAILY Qty: 90 0RF Referrals / Follow Up: Obed Scott MD [Primary Care Provider] - Aba Mckeon MD [Med Staff - Active Staff] - Within 1 Month Disposition Disposition (needs filled in before D/C Order can be placed): Home, Self Care
--- NOTE | 2024-04-15 11:14 | PCM.DC.SUM ---
Providers Date of Admission: 04/11/24 Date of Discharge: 04/15/24 Primary Care Physician: Dr. Obed Scott MD Consultations 04/12/24 11:33 Consult: Cardiology Routine Consulting Provider: Seferino Lockett Reason for Consult: Positive stress test and severe cardiomyopathy EMERGENT Consult: No MD Notified: Yes Date Notified: 04/12/24 Time Notified: 11:34 Method of Notification: Text Reason For Visit: AE CHF, CHEST PAIN, AND MEDICAL NONCOMPLIANCE. Diagnosis Discharge Diagnosis (1) Acute heart failure with reduced ejection fraction (HFrEF, <= 40%): Status: Acute Code(s): I50.21 - Acute systolic (congestive) heart failure (2) CVA (cerebral vascular accident): Status: Chronic Code(s): I63.9 - Cerebral infarction, unspecified Qualifiers: CVA mechanism: unspecified Qualified Code(s): I63.9 - Cerebral infarction, unspecified (3) Paroxysmal atrial fibrillation: Status: Chronic Code(s): I48.0 - Paroxysmal atrial fibrillation (4) Atherosclerotic heart disease of [place] coronary artery without angina pectoris: Status: Chronic Code(s): I25.10 - Atherosclerotic heart disease of [place] coronary artery without angina pectoris Qualifiers: [place] vs. transplanted heart: [place] heart Qualified Code(s): I25.10 - Atherosclerotic heart disease of [place] coronary artery without angina pectoris Plan Patient is a 68-year-old female who presented [facility] ED on 04/11/2024 with chest pain and worsening shortness of breath. 1. Acute on chronic HFrEF ? Cardiology following. Presented with chest pain and worsening shortness of breath. Chest imaging showed cardiomegaly with moderate bilateral pleural effusions. Echo showed severely dilated LV with severe LV generalized hypokinesis and moderate LV hypertrophy, akinetic posterior lateral wall, EF 15%. Last echo in 2019 showed EF 40%. Stress test showed reversible ischemia of anterior and inferior angel noted. BNP 830. Has had good diuresis with IV Lasix and is stable on room air as of 04/14. Planning for left heart cath today, will follow-up on result. Continue Coreg and losartan. 04/15: Patient was followed by cotton inspector. Recommended discharge with follow-up in cardiology office. Prescriptions given for furosemide, carvedilol. Patient already on losartan. 2. History of CAD with stenting, hypertension, hyperlipidemia ? History of acute posterolateral wall microinfarction in 2010 with stent placement. Had mild disease in LAD and RCA at that time. No heart catheterization since then. Continue Coreg and losartan as noted above. Continue aspirin, holding Xarelto for now with plan for heart cath as noted above. Continue statin. 04/15: Cardiac catheter reviewed. Proximal/mid LAD 50 to 60%, 70% distal D 1. Stent to left circumflex patent. [employer] distal RCA. RPDA filling retrogradely via collaterals from left system. Medical therapy recommended. Right radial artery access site mild bruise but no hematoma 3. CVA: Patient had remote CVA and neurologist has recommended Xarelto. No definitive evidence of atrial fibrillation on rhythm strip and family not aware of atrial fibrillation as documented by cotton inspector Dr. Aba Mckeon. Patient has to pay high co-pay for Xarelto. 4. Medication nonadherence ? Complicates hospital course, care and prognosis. Chronic medical conditions: ? Type 2 diabetes mellitus with neuropathy: Holding home oral hypoglycemics. Continue insulin glargine daily and scheduled insulin with meals plus sliding scale as needed for now. Continue home gabapentin. ? GERD: Continue home PPI. ? Anxiety/depression: Stable. Continue home duloxetine. ? Overactive bladder: Continue home vibegron. ? Tobacco abuse: Nicotine patch ordered per patient request. DVT prophylaxis: Not indicated, on Xarelto CODE STATUS: Full code, verified Discharge medication reconciliation done. Discharge follow-up instructions completed. Discharge process discussed with the patient and all questions were answered to patient's satisfaction. Follow with PCP in 1 to 2 weeks Total time spent, exact 35 minutes on discharge meds reconciliation, examination, coordination of care with nurses and ancillary staff, review of imaging and blood test and discussion with the patient on follow-up instructions. Medications at Discharge Home Medications aspirin 81 mg tablet,delayed release 81 mg PO DAILY heart health 12/26/17 walker #1 ea 02/22/20 pen needle, diabetic 31 gauge x 5/16 (BD Ultra-Fine Short Pen Needle) #100 ea 02/25/20 back brace #1 ea 02/16/21 lancets (Accu-Chek Softclix Lancets) #200 ea 07/04/21 blood glucose control, low (True Metrix Level 1 solution) #1 ea 07/05/21 blood sugar diagnostic (True Metrix Glucose Test Strip) #300 ea 07/05/21 pen needle, diabetic 32 gauge x 5/32 (Easy Comfort Pen [place]) #200 ea 03/06/22 lancets 28 gauge (FreeStyle Lancets) #200 ea 01/06/23 Lift Chair #1 ea 01/31/23 flash glucose scanning reader (FreeStyle Monie 2 [place]) #1 ea 03/13/23 rivaroxaban 10 mg tablet (Xarelto) 10 mg PO DAILY blood thinner #90 tabs 06/11/23 flash glucose sensor (FreeStyle Monie 2 Sensor kit) #1 ea 07/15/23 losartan 50 mg tablet 50 mg PO DAILY blood pressure #90 TABLETS 09/29/23 Novolog FlexPen U-100 Insulin 100 unit/mL (3 mL) subcutaneous (insulin aspart U-100) 20 unit (0.2 mL) subcut TID diabetes 3 months #54 mL 11/06/23 insulin degludec 100 unit/mL (3 mL) subcutaneous pen (Tresiba FlexTouch U-100 insulin) 50 unit (0.5 mL) subcut DAILY diabetes 3 months #45 mL 11/06/23 gabapentin 300 mg capsule 300 mg PO QHS nerve pain #90 caps 12/10/23 omeprazole 40 mg capsule,delayed release 40 mg PO DAILY reflux #90 caps 01/19/24 semaglutide 0.25 mg or 0.5 mg (2 mg/3 mL) subcutaneous pen injector (Ozempic) 0.25 mg (0.368 mL) subcut QWEEK diabetes #3 mL 01/19/24 vibegron 75 mg tablet (Gemtesa) 75 mg PO DAILY bladder #30 tabs 01/19/24 atorvastatin 40 mg tablet See Rx Instructions .Route .COMPLEX cholesterol #30 tabs 02/02/24 donepezil 10 mg tablet See Rx Instructions .Route .COMPLEX memory #30 tabs 02/02/24 glipizide 10 mg tablet, extended release 24 hr 10 mg PO BID for diabetes mellitus #60 TABLETS 02/05/24 trazodone 50 mg tablet 50 mg PO QHS sleep #30 TABLETS 03/01/24 duloxetine 30 mg capsule,delayed release 30 mg PO DAILY mental health #90 ea 03/08/24 carvedilol 6.25 mg tablet 6.25 mg PO BID 30 days #60 tabs 04/15/24 furosemide 40 mg tablet 40 mg PO DAILY 30 days #30 tabs 04/15/24 spironolactone 25 mg tablet 25 mg PO DAILY 30 days #30 tabs 04/15/24 Physical Exam Narrative Seen and examined Right radial artery access. Mild bruise but no hematoma. Physical exam General: Alert, Oriented x3, Cooperative HEENT: Atraumatic, PERRLA, EOMI, Normocephalic Oral: No Gingival or Mucosal Lesions/ Ulcerations Neck: Supple, No JVD, Negative Carotid Bruits Chest wall/Lungs: Air entry diminished in bilateral lung bases. No crepitation/rhonchi Cardiovascular: Regular rate, Regular Rhythm, Normal S1, Normal S2, No M/G/R Abdomen: Bowel Sounds Present, Soft, Non Tender, Non-Distended : No dysuria. No renal angle tenderness. No suprapubic tenderness. Extremities: No edema, Capillary Refill Less than 3 Seconds Skin: No rashes, No breakdown Musculoskeletal: No Tenderness to Palpation of Joints or Extremities Neurological: Cranial nerves II-XII grossly intact, DTR 2+/4. No acute focal neurological deficit. Psych/Mental Status: Normal Affect, Appropriate. Weight / BMI Weight Weight: 197 lb 12.074 oz Body Mass Index (BMI) 30.0 ABG / Lab / Microbiology Data 04/14/24 08:48 04/15/24 05:54 Laboratory: Laboratory Results - last 24 hr 04/14/24 11:34: POC Glucose 283 H 04/14/24 16:44: POC Glucose 241 H 04/14/24 20:53: POC Glucose 297 H 04/15/24 05:54: Sodium 135 L, Potassium 4.4, Chloride 104, Carbon Dioxide 27.0, Anion Gap 5, BUN 25 H, Creatinine 1.07 H, Estim Creat Clear Calc 58.14, Est GFR (MDRD) Af Amer 65, Est GFR (MDRD) Non-Af 54 L, BUN/Creatinine Ratio 23.4 H, Glucose 275 H, Calcium 9.1 D/C Instructions Discharge Diet: Low fat / Low cholesterol, 1800 Calorie Control Diet and 2000 mg Sodium Diet Weight Bearing Status: Weight bearing as tolerated Call your doctor if you observe: Fever of 101 or Higher, Coldness, Increased Pain, Numbness or Tingling, Change in Color, Inability to urinate, Inability to have a bowel movement, Shortness of breath, Dizziness, Fainting spells, Swelling in the ankles, Chest pain, Prolonged hiccupping, Increased palpitations (irregular heartbeat) and Calf discomfort When: IN 2 WEEKS Meaningful Use Info Meaningful Use Meaningful Use Diagnoses (Choose all that apply): None applicable Ischemic Stroke Statin Dosing Therapy Reference: STATIN DOSE THERAPY REFERENCE: * Patients > 75 years receive moderate or high dose statin therapy. * Patients 75 years or YOUNGER should receive HIGH intensity statin dose unless contraindicated. You will be required to document reason for non-treatment if statin daily dose does not meet guidelines. HIGH DOSE STATIN THERAPY DAILY Atorvastatin > than or = to 40 mg Rosuvastatin > than or = to 20 mg Amlodipine + Atorvastatin > than or = to 2.5/40 mg Ezetimibe + Simvastatin 10/80 mg Simvastatin 80mg Discharge Plan Admission Admit Date/Time: 04/11/24 22:10 Primary Reason for Your Visit: CAD, chronic HFrEF Attending Provider: Jareth Holley Primary Care Provider: Obed Scott Consulting Providers: Ramana Lau; Seferino Lockett; Ramana Becker; Howard Joe Discharge Orders/Prescriptions Prescriptions: New furosemide 40 mg Tablet 40 mg PO DAILY 30 Days Qty: 30 2RF Rx Instructions: Take extra 40 mg dose at 5 PM for increased leg swelling or weight gain 5 pounds in 1 week. carvedilol 6.25 mg Tablet 6.25 mg PO BID 30 Days Qty: 60 2RF Rx Instructions: Hold for heart less than 50 or systolic blood pressure less than 100 mmHg. spironolactone 25 mg Tablet 25 mg PO DAILY 30 Days Qty: 30 2RF Rx Instructions: Hold for serum potassium more than 5.0 Continued (DME) lancets [FreeStyle Lancets] 28 gauge misc See Rx Instructions .MEDSUPPLY Qty: 200 3RF Rx Instructions: check blood glucose 3x daily for type 2 DM insulin aspart U-100 [Novolog FlexPen U-100 Insulin] 100 unit/mL (3 mL) insulin pen 20 unit subcut TID 90 Days Qty: 54 1RF insulin degludec [Tresiba FlexTouch U-100] 100 unit/mL (3 mL) insulin pen 50 unit subcut DAILY 90 Days Qty: 45 1RF Gemtesa 75 mg tablet 75 mg PO DAILY Qty: 30 0RF Ozempic 0.25 mg or 0.5 mg (2 mg/3 mL) pen injector 0.25 mg subcut QWEEK Qty: 3 0RF Rx Instructions: for 4 weeks aspirin 81 MG tablet,delayed release (DR/EC) 81 mg PO DAILY (DME) walker Misc See Rx Instructions .ROUTE .MEDSUPPLY Qty: 1 0RF Rx Instructions: As directed (DME) pen needle, diabetic [BD Ultra-Fine Short Pen Needle] 31 gauge x 5/16 needle See Rx Instructions .ROUTE .MEDSUPPLY Qty: 100 5RF Rx Instructions: bid (DME) back brace Mis See Rx Instructions .ROUTE .MEDSUPPLY Qty: 1 0RF Rx Instructions: As directed for back pain (DME) lancets [Accu-Chek Softclix Lancets] [facility] [place] Rx Instructions .ROUTE .MEDSUPPLY Qty: 200 4RF Rx Instructions: Check blood sugar 3 times a day (DME) True Metrix Level 1 Solution See Rx Instructions .ROUTE .MEDSUPPLY Qty: 1 0RF Rx Instructions: As directed for type 2 DM (DME) True Metrix Glucose Test Strip Strip See Rx Instructions .ROUTE .MEDSUPPLY Qty: 300 3RF Rx Instructions: three times daily (DME) pen needle, diabetic [Easy Comfort Pen [place]] 32 gauge x 5/32 needle See Rx Instructions .ROUTE .MEDSUPPLY Qty: 200 3RF Rx Instructions: As directed (DME) Lift Chair See Rx Instructions .Route .MEDSUPPLY Qty: 1 0RF Rx Instructions: As directed (DME) FreeStyle Monie 2 [place] Misc See Rx Instructions .Route Qty: 1 5RF Rx Instructions: As directed Xarelto 10 mg tablet 10 mg PO DAILY Qty: 90 2RF Rx Instructions: for 35 days (DME) FreeStyle Monie 2 Sensor Kit See Rx Instructions .Route Qty: 1 1RF Rx Instructions: As directed losartan 50 mg tablet 50 mg PO DAILY Qty: 90 0RF gabapentin 300 mg capsule 300 mg PO QHS Qty: 90 0RF omeprazole 40 mg capsule,delayed release(DR/EC) 40 mg PO DAILY Qty: 90 0RF atorvastatin 40 mg tablet See Rx Instructions .ROUTE .COMPLEX Qty: 30 3RF Dose Instruction: TAKE 1 TABLET BY MOUTH AT BEDTIME FOR CHOLESTEROL Rx Instructions: TAKE 1 TABLET BY MOUTH AT BEDTIME FOR CHOLESTEROL donepezil 10 mg tablet See Rx Instructions .ROUTE .COMPLEX Qty: 30 3RF Dose Instruction: TAKE 1 TABLET BY MOUTH ONCE DAILY AT BEDTIME Rx Instructions: TAKE 1 TABLET BY MOUTH ONCE DAILY AT BEDTIME glipizide 10 mg tablet extended release 24hr 10 mg PO BID Qty: 60 0RF trazodone 50 mg tablet 50 mg PO QHS Qty: 30 0RF duloxetine 30 mg capsule,delayed release(DR/EC) 30 mg PO DAILY Qty: 90 0RF Referrals / Follow Up: Melanie Baig PA [Med Staff - Adv Practice Prof] - 04/29/24 9:30 am Cecil Mckeon PA [Med Staff - Adv Practice Prof] - 04/28/24 10:00 am Disposition Disposition (needs filled in before D/C Order can be placed): Home, Self Care Charges/Coding Visit Charges Inpatient E&M: 30229 Disch Hosp >30min
--- NOTE | 2024-04-15 11:40 | CASEMGMT ---
ANA COSTELLO note: Discharge order is in. Noted Xarelto to be continued per dc instructions from Dr Holley. Also noted, per home medication req, pt has not been taking this d/t unable to afford this. Per Dr Mckeon note, he is also aware of this and notes states the xarelto was recommended by her neurologist. Dr Holley made aware of above. ANA COSTELLO to room. Pt resting in bed. Son, Yash, @ bedside. Discussed xarelto w/pt and son. Yash states it has been a few months since pt has been on the xarelto d/t the cost. He is not sure if the neurologist, who prescribed the xarelto, is aware pt has not been taking it. ANA COSTELLO recommended they f/u with pt's neurologist and inform neurologist that pt has not been taking it and to discuss concerns/issues w/ cost. Yash states he is not aware of pt ever using a xarelto 30-day free trial offer card. Son provided w/the card and made aware this is a one-time use card and instructed on use. ANA COSTELLO recommended for pt to f/u with neurologist 1st, to inquire if they do wish for pt to still take it, as pt may only be able to get a 30-day supply w/the card and they may not be able to afford more. He voices understanding. Pt and son deny having other discharge needs /concerns. Pt states she feels safe to return home. They are aware Rx's have been sent to [facility] pharmacy. Sara HERNANDEZ RN, CM
[2024-04-15 12:06] LABS: Bedside Glucose 271 mg/dL (74-106)
--- NOTE | 2024-04-15 14:10 | PHA.DC_ITS ---
Pharmacy [facility] Service has performed discharge medication reconciliation and counseling for this patient. 1. CARVEDILOL 6.25MG PO BID 2. FUROSEMIDE 40MG PO DAILY 3. SPIRONOLACTONE 25MG PO DAILY The patient's discharge medication list was reviewed for discrepancies and discrepancies were resolved. The patient was counseled on the following discharge medications and changes in medications for homegoing were reviewed. The Reason for Use, instructions for use, and potential side effects were reviewed for all new medications. The patient's questions regarding all of their medications were answered. The patient was able to verbally demonstrate an understanding of their discharge medications. Patient counseled by assistant dean of studentsErasmo. Medications at Discharge Home Medications aspirin 81 mg tablet,delayed release 81 mg PO DAILY heart health 12/26/17 walker #1 ea 02/22/20 pen needle, diabetic 31 gauge x 5/16 (BD Ultra-Fine Short Pen Needle) #100 ea 02/25/20 back brace #1 ea 02/16/21 lancets (Accu-Chek Softclix Lancets) #200 ea 07/04/21 blood glucose control, low (True Metrix Level 1 solution) #1 ea 07/05/21 blood sugar diagnostic (True Metrix Glucose Test Strip) #300 ea 07/05/21 pen needle, diabetic 32 gauge x 5/32 (Easy Comfort Pen [place]) #200 ea 03/06/22 lancets 28 gauge (FreeStyle Lancets) #200 ea 01/06/23 Lift Chair #1 ea 01/31/23 flash glucose scanning reader (FreeStyle Monie 2 [place]) #1 ea 03/13/23 rivaroxaban 10 mg tablet (Xarelto) 10 mg PO DAILY blood thinner #90 tabs 06/11/23 flash glucose sensor (FreeStyle Monie 2 Sensor kit) #1 ea 07/15/23 losartan 50 mg tablet 50 mg PO DAILY blood pressure #90 TABLETS 09/29/23 Novolog FlexPen U-100 Insulin 100 unit/mL (3 mL) subcutaneous (insulin aspart U- 100) 20 unit (0.2 mL) subcut TID diabetes 3 months #54 mL 11/06/23 insulin degludec 100 unit/mL (3 mL) subcutaneous pen (Tresiba FlexTouch U-100 insulin) 50 unit (0.5 mL) subcut DAILY diabetes 3 months #45 mL 11/06/23 gabapentin 300 mg capsule 300 mg PO QHS nerve pain #90 caps 12/10/23 omeprazole 40 mg capsule,delayed release 40 mg PO DAILY reflux #90 caps 01/19/24 semaglutide 0.25 mg or 0.5 mg (2 mg/3 mL) subcutaneous pen injector (Ozempic) 0.25 mg (0.368 mL) subcut QWEEK diabetes #3 mL 01/19/24 vibegron 75 mg tablet (Gemtesa) 75 mg PO DAILY bladder #30 tabs 01/19/24 atorvastatin 40 mg tablet See Rx Instructions .Route .COMPLEX cholesterol #30 tabs 02/02/24 donepezil 10 mg tablet See Rx Instructions .Route .COMPLEX memory #30 tabs 02/02/24 glipizide 10 mg tablet, extended release 24 hr 10 mg PO BID for diabetes mellitus #60 TABLETS 02/05/24 trazodone 50 mg tablet 50 mg PO QHS sleep #30 TABLETS 03/01/24 duloxetine 30 mg capsule,delayed release 30 mg PO DAILY mental health #90 ea 03/08/24 carvedilol 6.25 mg tablet 6.25 mg PO BID 30 days #60 tabs 04/15/24 furosemide 40 mg tablet 40 mg PO DAILY 30 days #30 tabs 04/15/24 spironolactone 25 mg tablet 25 mg PO DAILY 30 days #30 tabs 04/15/24
[2024-04-15 15:34] LABS: ACT Activated Clotting Time 250 sec (74-137)
[2024-04-16 02:45] LABS: Bedside Glucose 280 mg/dL (74-106)
== END 2024-04-15 13:52 | disposition home or self-care (01) | DRG 286 ==
LOC: ED 21:37 → PCU 22:27
PROVIDERS: Hospitalist; Internal Medicine; Admitting Provider Internal Medicine; Emergency Provider Emergency Medicine; PCP Internal Medicine; Visit Provider Internal Medicine
DX: I13.0 Hypertensive heart and chronic kidney disease with heart failure and stage 1 through stage 4 chronic kidney disease, or unspecified chronic kidney disease (principal); I50.23 Acute on chronic systolic (congestive) heart failure; I69.951 Hemiplegia and hemiparesis following unspecified cerebrovascular disease affecting right dominant side; Z66 Do not resuscitate; E11.22 Type 2 diabetes mellitus with diabetic chronic kidney disease; N18.30 Chronic kidney disease, stage 3 unspecified; F03.90 Unspecified dementia, unspecified severity, without behavioral disturbance, psychotic disturbance, mood disturbance, and anxiety; F32.A Depression, unspecified; E66.9 Obesity, unspecified; I48.0 Paroxysmal atrial fibrillation; E11.42 Type 2 diabetes mellitus with diabetic polyneuropathy; E11.65 Type 2 diabetes mellitus with hyperglycemia; E78.00 Pure hypercholesterolemia, unspecified; K21.9 Gastro-esophageal reflux disease without esophagitis; I25.10 Atherosclerotic heart disease of native coronary artery without angina pectoris; Z79.4 Long term (current) use of insulin; M17.0 Bilateral primary osteoarthritis of knee; I25.82 Chronic total occlusion of coronary artery; F41.9 Anxiety disorder, unspecified; N32.81 Overactive bladder; Z90.710 Acquired absence of both cervix and uterus; Z82.5 Family history of asthma and other chronic lower respiratory diseases; Z79.01 Long term (current) use of anticoagulants; Z68.30 Body mass index [BMI] 30.0-30.9, adult; Z79.85 Long-term (current) use of injectable non-insulin antidiabetic drugs; Z82.3 Family history of stroke; Z79.84 Long term (current) use of oral hypoglycemic drugs; Z95.5 Presence of coronary angioplasty implant and graft; Z79.82 Long term (current) use of aspirin; Z72.0 Tobacco use
CPT/HCPCS: 36415; 71045; 71275; 78452; 80048; 80053; 82962; 83036; 83735; 83880; 84100; 84439; 84443; 84484; 85025; 85027; 85347; 85379; 93005; 93017; 93306; 93458; 93571; 94668; 97162; 97165; 97530; 97802; 99152; 99153; 99285; A9500; J7040; Q9967; A4216; C1769; C1887; C1894; J1940; J2405; J2785

== ENCOUNTER 2024-05-10 17:36 | Inpatient (IN) | payer MEDICARE, SELFPAY ==
[2024-05-10] VITALS (9 sets, daily range): BP systolic 94–130; BP diastolic 57–95; PULSE 80–145; RESP 16–23; TEMP 36.4–36.7; O2SAT 87–100; BMI 29.7; BMI 28.8
--- NOTE | 2024-05-10 18:00 | EDS_ITS ---
HPI History of Present Illness Chief Complaint: General Illness Informant: patient and family (Daughter) Onset/Context/Timing Onset: Days Context: Gradual Onset Timing: Continuous Quality: Weakness Location: Generalized Worsened by: Nothing Relieved by: Nothing Narrative Narrative: Patient presents with increasing weakness and confusion that has been getting worse over the past few days. Daughter states it is gradually getting worse. Daughter states patient's blood sugars have been increasing. Daughter states patient is out of some of her medications. Daughter states that her primary care physician will not refill these medications until she is seen in the of [facility]. Daughter states that patient missed her last appointment with her primary care physician. Patient is scheduled to see her primary care physician in 2 days. Patient has been having increasing urinary incontinence. Patient has a history of dementia and is a poor informant. [facility] Medical History Osteoarthritis OAB (overactive bladder) Elevated liver enzymes Health care maintenance Colon cancer screening Hypersomnolence Bilateral knee pain Hearing difficulty Memory impairment Abdominal pain Urinary frequency Cardiology follow-up encounter History of atrial fibrillation History of echocardiogram Post-menopausal Loss of hearing Wears glasses Wears dentures Dementia Anxiety Insulin dependent diabetes mellitus Arthritis Walker as ambulation aid Bladder disease High cholesterol Back pain History of hiatal hernia Dietary restriction Gastric reflux Smoker History of pain when walking Hypertension TIA (transient ischemic attack) History of heart attack Dysphagia Right ear pain Difficulty swallowing Cognitive attention deficit URI (upper respiratory infection) Insomnia Anxiety and depression Cerebrovascular disease Unspecified dementia without behavioral disturbance Seasonal allergies History of stroke History of ischemic multifocal multiple vascular territories stroke Obesity Depression Hyperlipidemia Essential (primary) hypertension Type 2 diabetes mellitus Atherosclerotic heart disease of [place] coronary artery without angina pectoris Ventricular septal defect Paroxysmal atrial fibrillation Home Medications ?Medication ?Instructions ?Recorded ?Last Taken ?Type aspirin 81 mg tablet,delayed 81 mg PO DAILY heart health 12/26/17 09/28/22 History release walker #1 ea 02/22/20 Unknown Rx pen needle, diabetic 31 gauge x #100 ea 02/25/20 Unknown Rx 5/16 (BD Ultra-Fine Short Pen Needle) pen needle, diabetic 32 gauge x #200 ea 03/06/22 Unknown Rx 5/32 (Easy Comfort [place]) Lift Chair #1 ea 01/31/23 Unknown Rx flash glucose scanning reader #1 ea 03/13/23 Unknown Rx (FreeStyle Monie 2 [place]) flash glucose sensor (FreeStyle #1 ea 07/15/23 Unknown Rx Monie 2 Sensor kit) losartan 50 mg tablet 50 mg PO DAILY blood pressure #90 09/29/23 Unknown Rx TABLETS Novolog FlexPen U-100 Insulin 100 20 unit (0.2 mL) subcut TID 11/06/23 Unknown Rx unit/mL (3 mL) subcutaneous diabetes 3 months #54 mL (insulin aspart U-100) insulin degludec 100 unit/mL (3 50 unit (0.5 mL) subcut DAILY 11/06/23 Unknown Rx mL) subcutaneous pen (Tresiba diabetes 3 months #45 mL FlexTouch U-100 insulin) gabapentin 300 mg capsule 300 mg PO QHS nerve pain #90 caps 12/10/23 Unknown Rx omeprazole 40 mg capsule,delayed 40 mg PO DAILY reflux #90 caps 01/19/24 Unknown Rx release atorvastatin 40 mg tablet See Rx Instructions .Route 02/02/24 Unknown Rx .COMPLEX cholesterol #30 tabs donepezil 10 mg tablet See Rx Instructions .Route 02/02/24 Unknown Rx .COMPLEX memory #30 tabs glipizide 10 mg tablet, extended 10 mg PO BID for diabetes mellitus 02/05/24 Unknown Rx release 24 hr #60 TABLETS trazodone 50 mg tablet 50 mg PO QHS sleep #30 TABLETS 03/01/24 Unknown Rx duloxetine 30 mg capsule,delayed 30 mg PO DAILY mental health #90 ea 03/08/24 Unknown Rx release carvedilol 12.5 mg tablet 12.5 mg PO BID #180 tabs 04/21/24 Unknown Rx furosemide 40 mg tablet 40 mg PO DAILY #90 tabs 04/21/24 Unknown Rx spironolactone 25 mg tablet 25 mg PO DAILY #90 tabs 04/21/24 Unknown Rx Allergy/AdvReac Type Severity Reaction Status Date / Time No Known Allergies Allergy Verified 04/21/24 09:06 Family History Mother Ovarian cancer Father , age 79 Hypertension COPD (chronic obstructive pulmonary disease) Heart disease CVA (cerebral vascular accident) Sister , age 69 Multiple sclerosis Cancer bone cancer Sister Brain tumor Heart disease Brother A-fib Surgical History Hx of total hip arthroplasty History of esophagogastroduodenoscopy (EGD) Hx of section History of open heart surgery History of hysterectomy Hx of cholecystectomy History of left heart catheterization (04/03/11) History of coronary artery stent placement (04/06/11) Social History Smoking Status: Former smoker alcohol intake: never substance use type: does not use what type of physical activity do you participate in: none ROS ROS ED Review of Systems ROS Unobtainable: due to mental condition EXAM Physical Exam Const Vital Signs: 05/10/24 17:37 05/10/24 19:00 05/10/24 19:20 Temperature 98.1 F 98.0 F Temperature Source Oral Oral Pulse Rate 80 86 Respiratory Rate 19 H 16 Blood Pressure 130/70 H 94/71 Blood Pressure Mean 90 78 Pulse Ox 96 98 87 Oxygen Delivery Method Room Air Room Air Oxygen Flow Rate (L/min) 05/10/24 19:30 05/10/24 20:00 05/10/24 21:00 Temperature 97.5 F L Temperature Source Axillary Pulse Rate 89 82 Respiratory Rate 23 H 20 H Blood Pressure 118/88 H 104/79 Blood Pressure Mean 98 87 Pulse Ox 98 100 97 Oxygen Delivery Method Nasal Cannula Nasal Cannula Oxygen Flow Rate (L/min) 2 2 05/10/24 21:37 Temperature 97.8 F Temperature Source Pulse Rate 83 Respiratory Rate 21 H Blood Pressure 111/71 Blood Pressure Mean 84 Pulse Ox 98 Oxygen Delivery Method Oxygen Flow Rate (L/min) Positive well nourished and well developed General Appearance ED: well developed and NAD HEENT Reports moist mucous membranes Neck supple and no JVD Resp normal respiratory effort and clear to auscultation bilaterally Cardio regular rate and regular rhythm GI non-tender and non-distended Palpation: soft Extremity normal to inspection Neuro CN's II-XII intact bilaterally and no sensory deficits noted Sensorium / Orientation: alert and orientation impaired Motor Exam: strength 5/5 throughout MDM MDM MDM Narrative Medical decision making narrative: Differential diagnosis includes DKA, hyperosmolar hyperglycemic nonketotic state, urinary tract infection, stroke, electrolyte abnormality, dehydration, cardiac dysrhythmia, cardiac ischemia, and pneumonia. CT scan of the brain will be obtained to assess for stroke and intracranial bleeding. EKG will be obtained to assess for cardiac dysrhythmia and cardiac ischemia. Chest x-ray will be obtained to assess for pneumonia. CBC will be obtained to assess for leukocytosis and anemia. Basic metabolic profile will be obtained to assess for electrolyte abnormality and renal function. High-sensitivity troponin will be obtained to assess for cardiac ischemia. Serum acetone will be obtained to assess for ketones. Urinalysis will be obtained to assess for urinary tract infection and hematuria. Lab Data Attestation: I reviewed the patient's lab results. Lab results narrative: CBC was reviewed. There is a leukocytosis of 20.5. The remainder is within normal limits. Basic metabolic profile will be reviewed. Glucose was elevated at 1041. BUN was elevated at 82 and creatinine was elevated 2.23. Sodium was low at 127. Chloride was low at 82. High-sensitivity troponin was reviewed and was normal at 51. Urinalysis was reviewed. There is no evidence of urinary tract infection or hematuria. Serum acetone level was reviewed and was negative. Labs: Laboratory Results - last 24 hr 05/10/24 05/10/24 05/10/24 18:20 18:33 21:13 WBC 20.5 H RBC 5.03 Hgb 13.9 Hct 41.4 MCV 82.3 MCH 27.6 MCHC 33.6 RDW Std Deviation 40.0 RDW Coeff of Zakiya 13.5 Plt Count 297 MPV 11.2 Immature Gran % (Auto) 0.800 Neut % (Auto) 85.1 H Lymph % (Auto) 7.6 L [place] % (Auto) 6.4 Eos % (Auto) 0.0 Baso % (Auto) 0.1 Absolute Neuts (auto) 17.4 H Absolute Lymphs (auto) 1.56 Nucleated RBC % 0 Sodium 127 L Potassium 4.0 Chloride 82 L Carbon Dioxide 30.0 Anion Gap 15 BUN 82 H Creatinine 2.23 H Estim Creat Clear Calc 27.75 Est GFR (MDRD) Af Amer 28 L Est GFR (MDRD) Non-Af 23 L BUN/Creatinine Ratio 36.8 H Glucose 1041 H* Hemoglobin A1c 12.1 H Calcium 11.1 H Troponin I High Sens 51 Urine Color Yellow Urine Clarity Sl. Cloudy Urine pH 5.0 Ur Specific [place] 1.010 Urine Protein 30 H Urine Glucose (UA) 1000 H Urine Ketones Negative Urine Occult Blood 10 H Urine Nitrite Negative Urine Bilirubin Negative Urine Urobilinogen Normal Ur Leukocyte Esterase Negative Urine RBC 0 SEEN Urine WBC 0-5 SEEN Ur Squamous Epith Cells 0-5 SEEN Amorphous Sediment 1+ URATE Urine Bacteria RARE Urine Mucus 0 SEEN Urine Opiates Screen NEGATIVE Urine Methadone Screen NEGATIVE Ur Barbiturates Screen NEGATIVE Ur Phencyclidine Scrn NEGATIVE Ur Amphetamines Screen NEGATIVE MDMA (Ecstasy) Screen NEGATIVE U Benzodiazepines Scrn NEGATIVE Urine Cocaine Screen NEGATIVE U Cannabinoids Screen NEGATIVE Ur Drug Screen Comment Acetone Level NEGATIVE POC Glucose > 500 H* 05/10/24 21:15 WBC RBC Hgb Hct MCV MCH MCHC RDW Std Deviation RDW Coeff of Zakiya Plt Count MPV Immature Gran % (Auto) Neut % (Auto) Lymph % (Auto) [place] % (Auto) Eos % (Auto) Baso % (Auto) Absolute Neuts (auto) Absolute Lymphs (auto) Nucleated RBC % Sodium Potassium Chloride Carbon Dioxide Anion Gap BUN Creatinine Estim Creat Clear Calc Est GFR (MDRD) Af Amer Est GFR (MDRD) Non-Af BUN/Creatinine Ratio Glucose 739 H* Hemoglobin A1c Calcium Troponin I High Sens Urine Color Urine Clarity Urine pH Ur Specific [place] Urine Protein Urine Glucose (UA) Urine Ketones Urine Occult Blood Urine Nitrite Urine Bilirubin Urine Urobilinogen Ur Leukocyte Esterase Urine RBC Urine WBC Ur Squamous Epith Cells Amorphous Sediment Urine Bacteria Urine Mucus Urine Opiates Screen Urine Methadone Screen Ur Barbiturates Screen Ur Phencyclidine Scrn Ur Amphetamines Screen MDMA (Ecstasy) Screen U Benzodiazepines Scrn Urine Cocaine Screen U Cannabinoids Screen Ur Drug Screen Comment Acetone Level POC Glucose Radiography Chest X-Ray - ED: 1 View, Read by ED Physician, Read by Radiologist and No Acute Disease Diagnostic Testing: Clinical Impression(s) from Imaging Studies Chest X-Ray 05/10/24 18:49 IMPRESSION: No radiographic evidence of acute cardiopulmonary disease. Electronically Signed: Arvin Mancuso DO at 21:00 EST , Brain CT 05/10/24 18:54 IMPRESSION: Old left-sided cerebral and cerebellar infarcts. No acute intracranial pathology of the brain. Electronically Signed: Arvin Mancuso DO at 20:10 EST , Abdomen/Pelvis CT 05/10/24 21:47 IMPRESSION: No acute pathology of the abdomen and pelvis. Electronically Signed: Arvin MancusoDO at 23:06 EST , CT scan of the brain was obtained. There is no acute intracranial abnormality. There are old left-sided cerebral and cerebellar infarcts. This was interpreted by the radiologist and was also independently reviewed by myself. Portable 1 view chest x-ray was obtained. On my independent interpretation, lung ivan are clear. There is normal cardiac silhouette. Bony thorax is normal. There is no acute process noted. Radiologist also interpreted the x- ray and agrees. EKG Initial EKG: Attestation: I personally reviewed and interpreted this EKG as follows: Interpretation: Sinus Rhythm (88) and Non-Specific ST Changes Comments: EKG was obtained. On my independent interpretation, it showed a normal sinus rhythm with a rate of 88. HI interval was within normal limits at 184 ms. QRS interval was slightly prolonged at 132 ms. QTc interval is borderline at 496 ms. [place] was normal. There are nonspecific ST-T wave changes. Prior EKG tracings: available for review Prior: Unchanged (04/14/2024) Treatment and Re-Evaluation :: Patient was given 2 L of IV fluids. Patient was started on insulin drip. Patient and family were advised of her findings. Patient and family were advised of the need for admission to the hospital. Case was discussed with the hospitalist. He recommended obtaining a CT scan of the abdomen pelvis as well as giving more IV fluids for sepsis treatment. Patient was given a third L of IV fluids. Critical Care Time Critical Care Time: Yes Critical care time (excluding procedures): 30-74 minutes (37), Including time spent:, Discussing w/Patient &/or Family/Industrial Analyst, Arranging Admission or Transfer and Performing Direct Patient Care at Bedside Discharge Plan Dx/Rx/DC Orders Clinical Impression: Hyperosmolar hyperglycemic state (HHS), Type 2 diabetes mellitus, General weakness Disposition Disposition: Acute Care Hospital [facility] [place] Discharge Date/Time: 05/10/24 23:47
--- NOTE | 2024-05-10 18:19 | EKG12_ITS ---
Test Reason : GEN ILL Blood Pressure : */* mmHG Vent. Rate : 88 BPM Atrial Rate : 88 BPM P-R Int : 184 ms QRS Dur : 132 ms QT Int : 410 ms P-R-T Axes : 73 53 131 degrees QTcB Int : 496 ms Normal sinus rhythm Non-specific intra-ventricular conduction block T wave abnormality, consider lateral ischemia Abnormal ECG Confirmed by Aba Mckeon ([id number]), department editor JC MOYER ([id number]) on 05/12/2024 5:57:40 AM Referred By: Ramana Lau Confirmed By: Aba Mckeon
[2024-05-10 18:29] LABS: Absolute Lymphocyte Count 1.56 X10^3/uL (0.83-4.51); Absolute Neutrophil Count 17.4 X10^3/uL (2.0-7.7); Basophil# 0.03 X10^3/uL; Basophil% 0.1 % (0-1); Hematocrit 41.4 % (37-47); Hemoglobin 13.9 g/dL (12.0-15.0); Lymphocyte # 1.56 X10^3/ul (0.83-4.51); Lymphocyte % 7.6 % (19-41); Mean Corp Hgb Conc 33.6 g/dL (32-36); Mean Corpuscular Hgb 27.6 pg (27.0-32.0); Mean Corpuscular Volume 82.3 fL (81-99); Mean Platelet Vol. 11.2 fl (6.2-12.0); Monocyte# 1.32 X10^3/uL; Monocyte% 6.4 % (0-10); NRBC Flagged by Analyzer 0 % (0-5); Neutrophil # 17.44 X10^3/uL (2.7-7.7); Neutrophil % 85.1 % (47-70); Platelet Count 297 K/mm3 (150-450); RBC Distribution Width CV 13.5 % (11.6-14.6); Red Blood Count 5.03 M/mm3 (4.2-5.4); White Blood Count 20.5 K/mm3 (4.4-11.0)
[2024-05-10 18:43] LABS: Mucous, Urine 0 SEEN /hpf (<or=2+); Red Blood Cells-Urine 0 SEEN /hpf (0-5)
--- NOTE | 2024-05-10 18:49 | RAD_ITS ---
INDICATION: Weakness EXAMINATION/TECHNIQUE: X-RAY - XR Chest 1 View COMPARISON: April 12, 2024 FINDINGS: LINES/DEVICES: Stable sternotomy wires. LUNGS: No consolidation, edema or effusion. No pneumothorax. MEDIASTINUM AND CARDIOVASCULAR STRUCTURES: Cardiac silhouette not enlarged. Central airways and mediastinal contour are unremarkable. BONES AND SOFT TISSUES: Unremarkable. RAD/Chest 1 View (Portable) IMPRESSION: No radiographic evidence of acute cardiopulmonary disease. Electronically Signed: Arvin Mancuso DO at 21:00 EST ,
--- NOTE | 2024-05-10 18:54 | CT_ITS ---
STUDY: CT BRAIN WITHOUT CONTRAST REASON FOR EXAM: Female, 68 years old. Confusion RADIATION DOSAGE (If Supplied By Facility): CTDIvol = ( 44.99 ) mGy, DLP = ( 866.41 ) mGycm TECHNIQUE: Transaxial CT imaging of the brain was performed without administration of intravenous contrast material. Individualized dose optimization techniques were used for this CT. COMPARISON: No relevant priors. FINDINGS: Normal soft tissue structures. Normal calvarium. Normal size ventricles and extra-axial spaces for the patient''s age. Old left occipital and frontal infarcts. Normal white matter tracts of the cerebral hemispheres. Normal basal ganglia and thalami. Normal brainstem. Old infarct in the left cerebellum. There is no intracranial hemorrhage. There are no findings of an acute ischemic infarction. Normal visualized paranasal sinuses. CT/Brain/Head without Contrast IMPRESSION: Old left-sided cerebral and cerebellar infarcts. No acute intracranial pathology of the brain. Electronically Signed: Arvin Mancuso DO at 20:10 EST ,
[2024-05-10 19:08] LABS: Color, Urine Yellow (Yellow); Glucose, Dipstick 1000 mg/dl (Normal); Ketone-Dipstick Negative (Negative); Leukocyte Esterase-Dipstick Negative /ul (Negative); Nitrite-Dipstick Negative (Negative); Occult Blood-Urine 10 /ul (Negative); Protein-Dipstick 30 mg/dl (Negative); Urine Bilirubin Dipstick Negative (Negative); Urine Clarity Sl. Cloudy (Clear); Urine Urobilinogen Normal (Normal)
[2024-05-10 19:10] LABS: Anion Gap 15 (5-15); BUN 82 mg/dL (7-18); BUN/Creat Ratio 36.8 RATIO (10-20); Calcium,Total 11.1 mg/dL (8.5-10.1); Chloride 82 mmol/L (98-107); Creatinine, Serum 2.23 mg/dL (0.55-1.02); EST Glomerular Filtration Rate 23 mL/min (>60); Est Glom Filt Rate - Afr Amer 28 mL/min (>60); Estimated Creatinine Clearance 27.75 ml/min; Glucose 1041 mg/dL (74-106); Sodium Level 127 mmol/L (136-145); Troponin-I HS 51 pg/mL (3.0-54.0)
[2024-05-10] MEDS: 0.9% Normal Saline (1000mL) 1,000 ML 1000 ML IV ×2 (19:26→23:16)
[2024-05-10] MEDS: Insulin Lispro 100 UNIT in 0.9% Normal Saline (100mL Bag) 99 ML 8.9 UNIT CONT INF (19:41)
[2024-05-10 19:44] LABS: Squamous Epithelial Cells - UA 0-5 SEEN /hpf (5-10); White Blood Cells 0-5 SEEN /hpf (0-5)
[2024-05-10 19:45] LABS: Amorphous Sediment 1+ URATE
[2024-05-10 19:48] LABS: Bacteria RARE /hpf (None Seen)
[2024-05-10 21:33] LABS: Bedside Glucose > 500 mg/dL (74-106)
[2024-05-10] MEDS: 0.9% Normal Saline (1000mL) 1,000 ML 999 ML IV (21:41)
--- NOTE | 2024-05-10 21:41 | PCM.HP.STD ---
[facility] - General General Date of Admission: 05/10/24 Date of Service: 05/10/24 Chief Complaint: AMS with Hyperglycemia. HPI Narrative WINIFRED LOVE, is a 68 F with a past medical history of essential hypertension; on losartan, carvedilol, spironolactone and furosemide, hyperlipidemia; on atorvastatin, overweight; with BMI of 29.7 this admission, former tobacco abuse, DM-2; uncontrolled with hyperglycemia on glipizide and insulin, diabetic neuropathy; on gabapentin, CAD; s/p MT (2011) with stent to LCX (2010) on BASA, history of PAF; not on anticoagulation, history of VSD; s/p open heart surgery (~1999), chronic systolic CHF; with LVEF ~40%, history of TIA (2019) and history of CVA; of multiple vascular territories in the Left cerebrum and cerebellum (2011), chronic dysphagia; s/p EGD with dilatation, history of elevated LFT's; s/p cholecystectomy, history of hysterectomy, remote history of , overactive bladder, depression with anxiety; on trazodone and duloxetine, chronic dementia; on donepezil, GERD; on omeprazole and OA; with history of Right THR, chronic back pain and bilateral knee pain causing her to use a walker to ambulate at baseline who presents to [facility] ER complaining of altered mental status and hyperglycemia. Ms. Love is not a reliable historian at this time so information was gathered from chart, medical staff and computer. According to the records she had difficulty getting in to see her PCP which apparently caused her to not have enough insulin with a subsequent severe elevation of her blood glucose > 1,000 mg/dL with altered mental status. The patient's POA is her daughter - but the patient currently lives with one of her sons so additional information was not readily available at the time of admission. In the ER she was noted to have HONK; evidenced by severe Hyperglycemia of 1,041 mg/dL and normal anion gap of 15 present on admission complicated by laboratory evidence of SHERYL; with elevated serum creatinine of 2.23 mg/dL and BUN of 82 mg/dL with BUN/creatinine ratio of 36.8 present on admission (up from her baseline serum creatinine of 1.07 mg/dL and BUN of 25 mg/dL last visit) due to a combination of Dehydration and Adverse Drug Reaction to furosemide, spironolactone and losartan compounded by Leukocytosis of 20.5K with Lactic Acidosis of 3.4 mmol/L present on admission suspicious for possible Sepsis along with Mild Hypercalcemia of 11.1 mg/dL present on admission and clinical evidence of Acute Metabolic Acidosis in the setting of known Chronic Dementia and previous CVA all suspected to be attributable to DM-2; uncontrolled with hyperglycemia on glipizide and insulin plus diabetic neuropathy; on gabapentin with apparent inadvertent Abrupt Withdrawal of Insulin and she was then admitted to the ICU for empiric treatment under the Sepsis protocol for a stay that is expected to extend beyond 2 midnights. [facility] Medical History Osteoarthritis OAB (overactive bladder) Elevated liver enzymes Health care maintenance Colon cancer screening Hypersomnolence Bilateral knee pain Hearing difficulty Memory impairment Abdominal pain Urinary frequency Cardiology follow-up encounter History of atrial fibrillation History of echocardiogram Post-menopausal Loss of hearing Wears glasses Wears dentures Dementia Anxiety Insulin dependent diabetes mellitus Arthritis Walker as ambulation aid Bladder disease High cholesterol Back pain History of hiatal hernia Dietary restriction Gastric reflux Smoker History of pain when walking Hypertension TIA (transient ischemic attack) History of heart attack Dysphagia Right ear pain Difficulty swallowing Cognitive attention deficit URI (upper respiratory infection) Insomnia Anxiety and depression Cerebrovascular disease Unspecified dementia without behavioral disturbance Seasonal allergies History of stroke History of ischemic multifocal multiple vascular territories stroke Obesity Depression Hyperlipidemia Essential (primary) hypertension Type 2 diabetes mellitus Atherosclerotic heart disease of [place] coronary artery without angina pectoris Ventricular septal defect Paroxysmal atrial fibrillation Home Medications ?Medication ?Instructions ?Recorded ?Last Taken ?Type aspirin 81 mg tablet,delayed 81 mg PO DAILY heart health 12/26/17 09/28/22 History release walker #1 ea 02/22/20 Unknown Rx pen needle, diabetic 31 gauge x #100 ea 02/25/20 Unknown Rx 5/16 (BD Ultra-Fine Short Pen Needle) pen needle, diabetic 32 gauge x #200 ea 03/06/22 Unknown Rx 5/32 (Easy Comfort Pen [place]) Lift Chair #1 ea 01/31/23 Unknown Rx flash glucose scanning reader #1 ea 03/13/23 Unknown Rx (FreeStyle Monie 2 [place]) flash glucose sensor (FreeStyle #1 ea 07/15/23 Unknown Rx Monie 2 Sensor kit) losartan 50 mg tablet 50 mg PO DAILY blood pressure #90 09/29/23 Unknown Rx TABLETS Novolog FlexPen U-100 Insulin 100 20 unit (0.2 mL) subcut TID 11/06/23 Unknown Rx unit/mL (3 mL) subcutaneous diabetes 3 months #54 mL (insulin aspart U-100) insulin degludec 100 unit/mL (3 50 unit (0.5 mL) subcut DAILY 11/06/23 Unknown Rx mL) subcutaneous pen (Tresiba diabetes 3 months #45 mL FlexTouch U-100 insulin) gabapentin 300 mg capsule 300 mg PO QHS nerve pain #90 caps 12/10/23 Unknown Rx omeprazole 40 mg capsule,delayed 40 mg PO DAILY reflux #90 caps 01/19/24 Unknown Rx release atorvastatin 40 mg tablet See Rx Instructions .Route 02/02/24 Unknown Rx .COMPLEX cholesterol #30 tabs donepezil 10 mg tablet See Rx Instructions .Route 02/02/24 Unknown Rx .COMPLEX memory #30 tabs glipizide 10 mg tablet, extended 10 mg PO BID for diabetes mellitus 02/05/24 Unknown Rx release 24 hr #60 TABLETS trazodone 50 mg tablet 50 mg PO QHS sleep #30 TABLETS 03/01/24 Unknown Rx duloxetine 30 mg capsule,delayed 30 mg PO DAILY mental health #90 ea 03/08/24 Unknown Rx release carvedilol 12.5 mg tablet 12.5 mg PO BID #180 tabs 04/21/24 Unknown Rx furosemide 40 mg tablet 40 mg PO DAILY #90 tabs 04/21/24 Unknown Rx spironolactone 25 mg tablet 25 mg PO DAILY #90 tabs 04/21/24 Unknown Rx Allergy/AdvReac Type Severity Reaction Status Date / Time No Known Allergies Allergy Verified 04/21/24 09:06 Family History Mother Ovarian cancer Father , age 79 Hypertension COPD (chronic obstructive pulmonary disease) Heart disease CVA (cerebral vascular accident) Sister , age 69 Multiple sclerosis Cancer bone cancer Sister Brain tumor Heart disease Brother A-fib Surgical History Hx of total hip arthroplasty History of esophagogastroduodenoscopy (EGD) Hx of section History of open heart surgery History of hysterectomy Hx of cholecystectomy History of left heart catheterization (10/26/11) History of coronary artery stent placement (04/06/11) Social History Smoking Status: Former smoker alcohol intake: never substance use type: does not use what type of physical activity do you participate in: none ROS ROS Narrative Full ROS was not possible due to patient's severe acute metabolic encephalopathy in the setting of chronic dementia. Vital Signs Vital Signs Vital Signs: 05/10/24 17:37 05/10/24 19:00 05/10/24 20:00 Temperature 98.1 F 98.0 F 97.5 F L Temperature Source Oral Oral Axillary Pulse Rate 80 86 89 Respiratory Rate 19 H 16 23 H Blood Pressure 130/70 H 94/71 118/88 H Blood Pressure Mean 90 78 98 Pulse Ox 96 98 100 Oxygen Delivery Method Room Air Room Air Nasal Cannula 05/10/24 21:00 05/10/24 21:37 Temperature 97.8 F Temperature Source Pulse Rate 82 83 Respiratory Rate 20 H 21 H Blood Pressure 104/79 111/71 Blood Pressure Mean 87 84 Pulse Ox 97 98 Oxygen Delivery Method Weight Weight: 195 lb 8.8 oz Body Mass Index (BMI) 29.7 Physical Exam Const alert and no apparent distress Constitutional Narrative: Patient is lethargic and confused but cooperative with a nontoxic appearance in addition to denying pain. General Appearance: cooperative Orientation / Consciousness: confused and lethargic HEENT normocephalic, head/scalp atraumatic and hearing grossly normal bilaterally HEENT Narrative: Mucous membranes dry. Eyes PERRL and EOMs intact bilaterally Neck no lymphadenopathy and supple Resp normal respiratory effort, no retractions, no use of accessory muscles and clear to auscultation bilaterally Cardio regular rate and regular rhythm GI normal to inspection, nondistended, normoactive bowel sounds, soft to palpation, non-tender and non-distended Extremity normal to inspection, full ROM and no clubbing, cyanosis or edema Skin Skin Narrative: Patient has no evidence of rash, abscess or jaundice. Neuro CN's II-XII intact bilaterally, moves all extremities and no focal motor deficits Sensorium / Orientation: awake, alert, oriented to person and oriented to place Speech: speech normal Psych affect normal Results Medical Records Data Attestation: I reviewed the patient's medical records Lab / Micro Data Attestation: I reviewed the patient's lab results. 05/10/24 18:20 05/10/24 21:15 Labs: Laboratory Results - last 24 hr 05/10/24 18:20: WBC 20.5 H, RBC 5.03, Hgb 13.9, Hct 41.4, MCV 82.3, MCH 27.6, MCHC 33.6, RDW Std Deviation 40.0, RDW Coeff of [place] 13.5, Plt Count 297, MPV 11.2, Immature Gran % (Auto) 0.800, Neut % (Auto) 85.1 H, Lymph % (Auto) 7.6 L, [place] % (Auto) 6.4, Eos % (Auto) 0.0, Baso % (Auto) 0.1, Absolute Neuts (auto) 17.4 H, Absolute Lymphs (auto) 1.56, Nucleated RBC % 0, Sodium 127 L, Potassium 4.0, Chloride 82 L, Carbon Dioxide 30.0, Anion Gap 15, BUN 82 H, Creatinine 2.23 H, Estim Creat Clear Calc 27.75, Est GFR (MDRD) Af Amer 28 L, Est GFR (MDRD) Non-Af 23 L, BUN/Creatinine Ratio 36.8 H, Glucose 1041 H*, Calcium 11.1 H, Troponin I High Sens 51, Acetone Level NEGATIVE 05/10/24 18:33: Urine Color Yellow, Urine Clarity Sl. Cloudy, Urine pH 5.0, Ur Specific [place] 1.010, Urine Protein 30 H, Urine Glucose (UA) 1000 H, Urine Ketones Negative, Urine Occult Blood 10 H, Urine Nitrite Negative, Urine Bilirubin Negative, Urine Urobilinogen Normal, Ur Leukocyte Esterase Negative, Urine RBC 0 SEEN, Urine WBC 0-5 SEEN, Ur Squamous Epith Cells 0-5 SEEN, Amorphous Sediment 1+ URATE, Urine Bacteria RARE, Urine Mucus 0 SEEN 05/10/24 21:13: POC Glucose > 500 H* Imaging Radiology Impression Chest X-Ray 05/10/24 18:49 IMPRESSION: No radiographic evidence of acute cardiopulmonary disease. Electronically Signed: Arvin Mancuso DO at 21:00 EST Reading Location ID and State: [facility] / [place] Tel [phone], Service support , Brain CT 05/10/24 18:54 IMPRESSION: Old left-sided cerebral and cerebellar infarcts. No acute intracranial pathology of the brain. Electronically Signed: Arvin Mancuso DO at 20:10 EST , [facility] Imaging Services [address] [place] [id number] Abdomen/Pelvis without Cont MR#: [id number] Acct: [id number] Name: WINIFRED LOVE Rep #: [id number] : [id number] F 68 From: Arvin Mancuso DO PCP: Dr. Obed Scott MD Status: ADM IN Study: Abdomen/Pelvis without Cont Date of Exam: 05/10/24 Exam# [id number] Ordering Dr: Akash Richey DO STUDY: CT ABDOMEN AND PELVIS WITHOUT CONTRAST REASON FOR EXAM: Female, 68 years old. Leukocytosis RADIATION DOSAGE (If Supplied By Facility): CTDIvol = ( 18.84 ) mGy, DLP = ( 1002.60 ) mGycm TECHNIQUE: Transaxial images were obtained from the dome of the diaphragm to the symphysis pubis without oral contrast, and without intravenous contrast. Sagittal and coronal images were reconstructed. Individualized dose optimization techniques were used for this CT. COMPARISON: None. FINDINGS: The visualized lung bases are unremarkable. The visualized portions of the heart are within normal limits. Normal liver. Nonvisualization of the gallbladder. No dilatation of the extrahepatic biliary system. Normal spleen. Normal pancreas. Normal bilateral adrenal glands. Small right kidney. Cyst in the left kidney. Normal visualized stomach. Normal small intestine. Normal colon. The appendix is visualized and appears normal. Normal abdominal aorta. Normal inferior vena cava. Normal retroperitoneum. Normal urinary bladder. There is a right hip prosthesis. Normal abdominal wall. Normal osseous structures. CT/Abdomen/Pelvis without Cont IMPRESSION: No acute pathology of the abdomen and pelvis. Electronically Signed: Arvin Mancuso DO at 23:06 EST Reading Location ID and State: [facility] / [place] Tel [phone], Service support , CC: Dr. Obed Scott MD; Dr. Akash Richey DO ~ [employer]ad Compressor Operator Adjuster: Signed Assessment & Plan Assessment/Plan (1) Hyperosmolar hyperglycemic state (HHS): (2) SHERYL (acute kidney injury): (3) Dehydration: (4) Adverse drug reaction: QUALIFIERS: Encounter type: initial encounter Qualified Code(s): T50.905A - Adverse effect of unspecified drugs, medicaments and biological substances, initial encounter (5) Leukocytosis: QUALIFIERS: Leukocytosis type: unspecified Qualified Code(s): D72.829 - Elevated white blood cell count, unspecified (6) Lactic acidosis: (7) Hypercalcemia: (8) Acute metabolic acidosis: (9) Chronic dementia: (10) DM hyperosmolarity type II, uncontrolled: (11) History of CVA with residual deficit: PLAN: Plan 1. HONK; evidenced by severe Hyperglycemia of 1,041 mg/dL and normal anion gap of 15 plus negative serum acetone present on admission - Admit to ICU. Maintain insulin drip for Non-DKA protocol and recheck BMP q. ~6 hours. Check HgbA1c to objectively assess quality of diabetic control. 2. SHERYL; with elevated serum creatinine of 2.23 mg/dL and BUN of 82 mg/dL with BUN/creatinine ratio of 36.8 present on admission due to a combination of Dehydration and Adverse Drug Reaction to furosemide, spironolactone and losartan complicating #1 - Vigorously volume resuscitate and recheck BMP in AM to ensure improvement. We will avoid potentially nephrotoxic agents. Hemoccult stools. 3. Leukocytosis of 20.5K with Lactic Acidosis of 3.4 mmol/L present on admission suspicious for possible Sepsis compounding #1 & #2 - Start empiric IV Zosyn and obtain CT scan of the abdomen and pelvis with negative CXR and unremarkable UA noted on admission. Serialize lactates. Give rectal Tylenol prn pain or fever. 4. Mild Hypercalcemia of 11.1 mg/dL present on admission compounding #1 - #3 - Give NS IVF and check intact-PTH. Recheck level in AM to follow trend. 5. Acute Metabolic Acidosis in the setting of known Chronic Dementia arising from #1 - #4 - Proceed with supportive care as outlined and monitor for improvement. Minimize potentially COAL DUMPING EQUIPMENT OPERATOR-active medications. Check TSH, B12, Folate and UDS to evaluate for other potential causes or contributing factors that could lead to acute confusion. 6. DM-2; uncontrolled with hyperglycemia on glipizide and insulin plus diabetic neuropathy; on gabapentin with apparent Abrupt Withdrawal of Insulin precipitating #1 - #5 - Patient on insulin drip for now and then will need to be transitioned back to her normal regimen once her condition improves. 7. History of TIA (2019) and history of CVA; of multiple vascular territories in the Left cerebrum and cerebellum (2011) adding to the medical complexity of #1 - #6 - Noted. 8. Depression with anxiety; on trazodone and duloxetine - Noted. Reinitiate these agents once patient has medically stabilized and can tolerate oral intake. 9. Essential hypertension; on losartan, carvedilol, spironolactone and furosemide - Hold scheduled antihypertensives for now and give IV Hydralazine prn for systolic blood pressure > 160 mmHg. 10. Hyperlipidemia; on atorvastatin - Restart statin once her condition improves. 11. Overweight; with BMI of 29.7 this admission - Weight loss will be recommended. Check TSH. This complicates her case and may hamper her recovery. 12. Former tobacco abuse - Noted. 13. CAD; s/p MT (2011) with stent to LCX (2010) on BASA - Restart BASA once patient's condition improves. Serialize troponin. 14. History of PAF; not on anticoagulation - Noted with patient currently in NSR. 15. History of VSD; s/p open heart surgery (~1999) - Noted. 16. Chronic systolic CHF; with LVEF ~40% - Noted with no signs of volume overload present on admission. 17. Chronic dysphagia; s/p EGD with dilatation - Noted. 18. GERD; on omeprazole - Patient transitioned to IV Protonix until she can tolerate oral intake. 19. History of elevated LFT's; s/p cholecystectomy - Noted. 20. History of hysterectomy - Noted. 21. Overactive bladder - Stable. 22. Remote history of - Noted for the sake of completeness. 23. OA; with history of Right THR, chronic back pain and bilateral knee pain causing her to use a walker to ambulate at baseline - Noted. PT/OT and Case Management to consult and treat on-rounds in the AM for further recommendations with help appreciated in advance. 24. DVT prophylaxis - Heparin 5,000 U sq. BID plus SCD's. Total time: Approximately (but not less than) 75 minutes. Sepsis Attestation Sepsis Alert: Yes Sepsis Attestation: Sepsis Ruled Out Date exam was performed: 05/10/24 Time exam was performed: 22:45 Possible Source of Sepsis: Unknown Sepsis Organ Dysfunction Criteria Present: Creatinine > 2.0 mg/dL and New/Unexplained change in mental status Fluid Resuscitation Fluid resuscitation indicated?: Yes Fluid Resuscitation ordered: 30 ml/kg fluid bolus ordered Amount of fluid ordered: 2 Sepsis Note Date exam was performed: 05/11/24 Time exam was performed: 02:45 Sepsis Attestation: Sepsis re-evaluation was performed Response to fluids: Fluid responsive hypotension Charges/Coding Visit Charges [facility]M: [address] [facility]
[2024-05-10 21:47] LABS: Glucose 739 mg/dL (74-106)
--- NOTE | 2024-05-10 21:47 | CT_ITS ---
STUDY: CT ABDOMEN AND PELVIS WITHOUT CONTRAST REASON FOR EXAM: Female, 68 years old. Leukocytosis RADIATION DOSAGE (If Supplied By Facility): CTDIvol = ( 18.84 ) mGy, DLP = ( 1002.60 ) mGycm TECHNIQUE: Transaxial images were obtained from the dome of the diaphragm to the symphysis pubis without oral contrast, and without intravenous contrast. Sagittal and coronal images were reconstructed. Individualized dose optimization techniques were used for this CT. COMPARISON: None. FINDINGS: The visualized lung bases are unremarkable. The visualized portions of the heart are within normal limits. Normal liver. Nonvisualization of the gallbladder. No dilatation of the extrahepatic biliary system. Normal spleen. Normal pancreas. Normal bilateral adrenal glands. Small right kidney. Cyst in the left kidney. Normal visualized stomach. Normal small intestine. Normal colon. The appendix is visualized and appears normal. Normal abdominal aorta. Normal inferior vena cava. Normal retroperitoneum. Normal urinary bladder. There is a right hip prosthesis. Normal abdominal wall. Normal osseous structures. CT/Abdomen/Pelvis without Cont IMPRESSION: No acute pathology of the abdomen and pelvis. Electronically Signed: Arvin Mancuso DO at 23:06 EST Reading Location ID and State: [facility] / [place] Tel [phone], Service support ,
--- NOTE | 2024-05-10 21:48 | ED.RN ---
Pt SpO2 drops when sleeping. Pt snores per daughter, has never had sleep study.
[2024-05-10 23:12] LABS: PTHIN 56.3 pg/mL (18.4-80.1)
[2024-05-10 23:14] LABS: Bedside Glucose > 500 mg/dL (74-106)
[2024-05-10 23:27] LABS: Hemoglobin A1c 12.1 % (3.8-5.6)
[2024-05-10 23:43] LABS: Lactic Acid 3.4 mmol/L (0.4-1.9)
[2024-05-11] VITALS (29 sets, daily range): BP systolic 90–162; BP diastolic 47–107; PULSE 87–142; RESP 12–25; TEMP 36.1–36.6; O2SAT 88–100; BMI 28.8
[2024-05-11 00:11] LABS: Amphetamine Urine VISTA NEGATIVE (<1000 ng/mL); Barbiturate Urine VISTA NEGATIVE (< 200 ng/mL); Benzodiazepine Urine VISTA NEGATIVE (< 200 ng/mL); Cocaine Urine VISTA NEGATIVE (< 300 ng/mL); Ecstacy Urine VISTA NEGATIVE (< 500 ng/mL); Methadone Urine VISTA NEGATIVE (< 300 ng/mL); PCP Urine VISTA NEGATIVE (< 25 ng/mL); THC Urine VISTA NEGATIVE (< 50 ng/mL); Vista UDS pH Range 5
[2024-05-11] MEDS: KCL 20MEQ in 0.9% NS 20 MEQ/1,000 ML IV.SOLN. 70 MEQ IV ×2 (00:24→13:22)
[2024-05-11] MEDS: Piperacil/Tazobactam 3.375 GM in 0.9% Normal Saline (50mL MB+) 50 ML IV ×4 (00:24→20:38)
[2024-05-11] MEDS: Digoxin 250 MCG/ML Ampul IV ×2 (00:24→02:31)
[2024-05-11 00:57] LABS: Bedside Glucose 442 mg/dL (74-106)
[2024-05-11 01:15] LABS: Troponin-I HS 83 pg/mL (3.0-54.0)
[2024-05-11 01:17] LABS: Vitamin B12 789 pg/mL (211-911)
[2024-05-11 01:26] LABS: Bedside Glucose 432 mg/dL (74-106)
[2024-05-11] MEDS: 0.9% Saline Lock 10 ML Syringe IV (02:31)
[2024-05-11 02:41] LABS: Reflex Lactate? Y
[2024-05-11 03:03] LABS: Bedside Glucose 409 mg/dL (74-106)
[2024-05-11 03:28] LABS: Absolute Neutrophil Count 12.3 X10^3/uL (2.0-7.7); Basophil# 0.05 X10^3/uL; Basophil% 0.3 % (0-1); Eosinophils% 14.1 % (0-5); Hemoglobin 11.8 g/dL (12.0-15.0); Lymphocyte % 13.5 % (19-41); Mean Corp Hgb Conc 33.7 g/dL (32-36); Mean Corpuscular Hgb 27.8 pg (27.0-32.0); Mean Corpuscular Volume 82.5 fL (81-99); Mean Platelet Vol. 10.6 fl (6.2-12.0); Monocyte# 1.42 X10^3/uL; Monocyte% 7.4 % (0-10); NRBC Flagged by Analyzer 0 % (0-5); Neutrophil # 12.34 X10^3/uL (2.7-7.7); Neutrophil % 64.2 % (47-70); POSITIVE DIFFERENTIAL YES; POSITIVE MORPHOLOGY YES; Platelet Count 215 K/mm3 (150-450); RBC Distribution Width CV 13.8 % (11.6-14.6); Red Blood Count 4.24 M/mm3 (4.2-5.4); White Blood Count 19.2 K/mm3 (4.4-11.0)
[2024-05-11 03:55] LABS: Differential Indicated SCAN CRITERIA MET
[2024-05-11 04:02] LABS: Lactic Acid 1.8 mmol/L (0.4-1.9)
[2024-05-11 04:23] LABS: Anion Gap 8 (5-15); BUN 71 mg/dL (7-18); BUN/Creat Ratio 48.6 RATIO (10-20); Chloride 103 mmol/L (98-107); Creatinine, Serum 1.46 mg/dL (0.55-1.02); EST Glomerular Filtration Rate 38 mL/min (>60); Est Glom Filt Rate - Afr Amer 46 mL/min (>60); Estimated Creatinine Clearance 41.78 ml/min; Glucose 419 mg/dL (74-106); Potassium 3.6 mmol/L (3.5-5.1); Sodium Level 138 mmol/L (136-145)
[2024-05-11 05:22] LABS: Differential Comment SCANNED
[2024-05-11 05:36] LABS: Bedside Glucose 369 mg/dL (74-106)
[2024-05-11 06:13] LABS: Bedside Glucose 372 mg/dL (74-106)
[2024-05-11 06:19] LABS: Bedside Glucose 329 mg/dL (74-106)
[2024-05-11 07:19] LABS: Bedside Glucose 336 mg/dL (74-106)
--- NOTE | 2024-05-11 07:48 | PN.HOSP_ITS ---
Reason for Visit Reason for Visit: Diagnoses Elevated white blood cell count, unspecified (05/10/24) Type 2 diabetes mellitus with hyperosmolarity without nonketotic hyperglycemic- hyperosmolar coma ([facility]) (05/10/24) Hypercalcemia (05/10/24) Dehydration (05/10/24) Acidosis, unspecified (05/10/24) Acute metabolic acidosis (05/10/24) Unspecified dementia, unspecified severity, without behavioral disturbance, psychotic disturbance, mood disturbance, and anxiety (05/10/24) Unspecified sequelae of cerebral infarction (05/10/24) Acute kidney failure, unspecified (05/10/24) Adverse effect of unspecified drugs, medicaments and biological substances, initial encounter (05/10/24) Objective Data Objective Data Vital Signs: Vital Signs Temp Pulse Resp BP Pulse Ox O2 Del Method O2 Flow Rate 97.2 F L 102 H 15 133/66 H 100 Nasal Cannula 4 05/11/24 04:00 05/11/24 07:00 05/11/24 07:00 05/11/24 07:00 05/11/24 07:00 05/11/24 07:00 05/11/24 07:00 Oxygen Flow Rate (L/min) 4 Oxygen Delivery Method Nasal Cannula Weight: 189 lb 13.088 oz Body Mass Index (BMI) 28.8 Intake & Output: Intake and Output for Last 24 Hours 05/09/24 05/10/24 05/11/24 23:59 23:59 23:59 Intake Total 2022.46 / 2022.46 1067.93 / 1067.93 Output Total 400 / 400 Balance 2022.46 / 2022.46 667.93 / 667.93 Lab / Micro Data 05/11/24 03:15 05/11/24 03:15 Labs: Laboratory Results - last 24 hr 05/10/24 18:20: WBC 20.5 H, RBC 5.03, Hgb 13.9, Hct 41.4, MCV 82.3, MCH 27.6, MCHC 33.6, RDW Std Deviation 40.0, RDW Coeff of Zakiya 13.5, Plt Count 297, MPV 11.2, Immature Gran % (Auto) 0.800, Neut % (Auto) 85.1 H, Lymph % (Auto) 7.6 L, Yell % (Auto) 6.4, Eos % (Auto) 0.0, Baso % (Auto) 0.1, Absolute Neuts (auto) 17.4 H, Absolute Lymphs (auto) 1.56, Nucleated RBC % 0, Sodium 127 L, Potassium 4.0, Chloride 82 L, Carbon Dioxide 30.0, Anion Gap 15, BUN 82 H, Creatinine 2.23 H, Estim Creat Clear Calc 27.75, Est GFR (MDRD) Af Amer 28 L, Est GFR (MDRD) Non-Af 23 L, BUN/Creatinine Ratio 36.8 H, Glucose 1041 H*, Hemoglobin A1c 12.1 H , Calcium 11.1 H, Troponin I High Sens 51, Acetone Level NEGATIVE 05/10/24 18:33: Urine Color Yellow, Urine Clarity Sl. Cloudy, Urine pH 5.0, Ur Specific [place]wood 1.010, Urine Protein 30 H, Urine Glucose (UA) 1000 H, Urine Ketones Negative, Urine Occult Blood 10 H, Urine Nitrite Negative, Urine Bilirubin Negative, Urine Urobilinogen Normal, Ur Leukocyte Esterase Negative, Urine RBC 0 SEEN, Urine WBC 0-5 SEEN, Ur Squamous Epith Cells 0-5 SEEN, Amorphous Sediment 1+ URATE, Urine Bacteria RARE, Urine Mucus 0 SEEN, Urine Opiates Screen NEGATIVE, Urine Methadone Screen NEGATIVE, Ur Barbiturates Screen NEGATIVE, Ur Phencyclidine Scrn NEGATIVE, Ur Amphetamines Screen NEGATIVE, MDMA (Ecstasy) Screen NEGATIVE, U Benzodiazepines Scrn NEGATIVE, Urine Cocaine Screen NEGATIVE, U Cannabinoids Screen NEGATIVE, Ur Drug Screen Comment 05/10/24 21:13: POC Glucose > 500 H* 05/10/24 21:15: Glucose 739 H* 05/10/24 22:32: Lactic Acid 3.4 H*, Folate 9.70, TSH 3.060, PTH Intact 56.3 05/10/24 22:49: POC Glucose > 500 H* 05/11/24 00:07: POC Glucose 442 H 05/11/24 00:40: Troponin I High Sens 83 H, Vitamin B12 789 05/11/24 01:08: POC Glucose 432 H 05/11/24 02:44: POC Glucose 409 H 05/11/24 03:15: WBC 19.2 H, RBC 4.24, Hgb 11.8 L, Hct 35.0 L, MCV 82.5, MCH 27.8, MCHC 33.7, RDW Std Deviation 41.0, RDW Coeff of Zakiya 13.8, Plt Count 215, MPV 10.6, Immature Gran % (Auto) 0.500, Neut % (Auto) 64.2, Lymph % (Auto) 13.5 L, Yell % (Auto) 7.4, Eos % (Auto) 14.1 H, Baso % (Auto) 0.3, Absolute Neuts (auto) 12.3 H, Absolute Lymphs (auto) 2.60, Nucleated RBC % 0, Differential Comment SCANNED, Sodium 138, Potassium 3.6, Chloride 103, Carbon Dioxide 27.0, Anion Gap 8, BUN 71 H, Creatinine 1.46 H, Estim Creat Clear Calc 41.78, Est GFR (MDRD) Af Amer 46 L, Est GFR (MDRD) Non-Af 38 L, BUN/Creatinine Ratio 48.6 H, G lucose 419 H, Lactic Acid 1.8, Calcium 9.0 05/11/24 03:57: POC Glucose 372 H 05/11/24 05:08: POC Glucose 369 H 05/11/24 05:59: POC Glucose 329 H 05/11/24 07:01: POC Glucose 336 H Radiography Diagnostic Testing: Radiology Impression Chest X-Ray 05/10/24 18:49 IMPRESSION: No radiographic evidence of acute cardiopulmonary disease. Electronically Signed: Arvin Mancuso DO at 21:00 EST , Brain CT 05/10/24 18:54 IMPRESSION: Old left-sided cerebral and cerebellar infarcts. No acute intracranial pathology of the brain. Electronically Signed: Arvin Mancuso DO at 20:10 EST , Abdomen/Pelvis CT 05/10/24 21:47 IMPRESSION: No acute pathology of the abdomen and pelvis. Electronically Signed: Arvin Mancuso DO at 23:06 EST , Physical Exam Narrative Seen and examined. Patient is still confused and disoriented with time. She is rolling on the bed. She knows that she is in [facility] Physical exam General: Awake, confused. Disoriented, irritable HEENT: Atraumatic, PERRLA, EOMI, Normocephalic Oral: No Gingival or Mucosal Lesions/ Ulcerations Neck: Supple, No JVD, Negative Carotid Bruits Chest wall/Lungs: Air entry diminished in bilateral lung bases. No crepitation/rhonchi Cardiovascular: A-fibwith RVR, Normal S1, Normal S2, No M/G/R Abdomen: Bowel Sounds Present, Soft, Non Tender, Non-Distended : No dysuria. No renal angle tenderness. No suprapubic tenderness. Extremities: No edema, Capillary Refill Less than 3 Seconds Skin: No rashes, No breakdown Musculoskeletal: No Tenderness to Palpation of Joints or Extremities Neurological: Cranial nerves II-XII grossly intact, DTR 2+/4. No acute focal neurological deficit. Psych/Mental Status:Flat affect Assessment & Plan Assessment/Plan (1) Hyperosmolar hyperglycemic state (HHS): (2) SHERYL (acute kidney injury): (3) Dehydration: (4) Adverse drug reaction: QUALIFIERS: Encounter type: initial encounter Qualified Code(s): T50.905A - Adverse effect of unspecified drugs, medicaments and biological substances, initial encounter (5) Leukocytosis: QUALIFIERS: Leukocytosis type: unspecified Qualified Code(s): D 72.829 - Elevated white blood cell count, unspecified (6) Lactic acidosis: (7) Hypercalcemia: (8) Acute metabolic acidosis: (9) DM hyperosmolarity type II, uncontrolled: (10) History of CVA with residual deficit: PLAN: Plan 68-year-old female was admitted with increased worsening weakness, confusion, increasing urinary incontinence over past few days. Blood sugar was high 1000s in BMP. 1. HONK; evidenced by severe Hyperglycemia of 1,041 mg/dL and normal anion gap of 15 plus negative serum acetone present on admission - Admit to ICU. Maintain insulin drip for Non-DKA protocol and recheck BMP q. ~6 hours. Check HgbA1c to objectively assess quality of diabetic control. 2. SHERYL; with elevated serum creatinine of 2.23 mg/dL and BUN of 82 mg/dL with BUN/creatinine ratio of 36.8 present on admission due to a combination of Dehydration and Adverse Drug Reaction to furosemide, spironolactone and losartan complicating #1 - Vigorously volume resuscitate and recheck BMP in AM to ensure improvement. We will avoid potentially nephrotoxic agents. Hemoccult stools. 05/11: Hemoglobin 111. 3. Leukocytosis of 20.5K with Lactic Acidosis of 3.4 mmol/L present on admission suspicious for possible Sepsis compounding #1 & #2 - Start empiric IV Zosyn and obtain CT scan of the abdomen and pelvis with negative CXR and unremarkable UA noted on admission. Serialize lactates. Give rectal Tylenol prn pain or fever. 4. Mild Hypercalcemia of 11.1 mg/dL present on admission compounding #1 - #3 - Give NS IVF and check intact-PTH. Recheck level in AM to follow trend. 5. Acute Metabolic Acidosis in the setting of known Chronic Dementia arising from #1 - #4 - Proceed with supportive care as outlined and monitor for improvement. Minimize potentially SPRINKLER REPAIR TECHNICIAN-active medications. Check TSH, B12, Folate and UDS to evaluate for other potential causes or contributing factors that could lead to acute confusion. 6. DM-2; uncontrolled with hyperglycemia on glipizide and insulin plus diabetic neuropathy; on gabapentin with apparent Abrupt Withdrawal of Insulin precipitating #1 - #5 - Patient on insulin drip for now and then will need to be transitioned back to her normal regimen once her condition improves. 7. History of TIA (2019) and history of CVA; of multiple vascular territories in the Left cerebrum and cerebellum (2011) adding to the medical complexity of #1 - #6 - Noted. 8. Depression with anxiety; on trazodone and duloxetine - Noted. Reinitiate these agents once patient has medically stabilized and can tolerate oral intake. 9. Essential hypertension; on losartan, carvedilol, spironolactone and furosemide - Hold scheduled antihypertensives for now and give IV Hydralazine prn for systolic blood pressure > 160 mmHg. 10. Hyperlipidemia; on atorvastatin - Restart statin once her condition improves. 11. Overweight; with BMI of 29.7 this admission - Weight loss will be recommended. Check TSH. This complicates her case and may hamper her recovery. 12. Former tobacco abuse - Noted. 13. CAD; s/p TN (2011) with stent to LCX (2010) on BASA - Restart BASA once patient's condition improves. Serialize troponin. 14. History of PAF; not on anticoagulation - Noted with patient currently in NSR. 15. History of VSD; s/p open heart surgery (~1999) - Noted. 16. Chronic systolic CHF; with LVEF ~40% - Noted with no signs of volume overload present on admission. 17. Chronic dysphagia; s/p EGD with dilatation - Noted. 18. GERD; on omeprazole - Patient transitioned to IV Protonix until she can tolerate oral intake. 19. History of elevated LFT's; s/p cholecystectomy - Noted. 20. History of hysterectomy - Noted. 21. Overactive bladder - Stable. 22. Remote history of - Noted for the sake of completeness. 23. OA; with history of Right THR, chronic back pain and bilateral knee pain causing her to use a walker to ambulate at baseline - Noted. PT/OT and Case Management to consult and treat on-rounds in the AM for further recommendations with help appreciated in advance. 24. DVT prophylaxis - Heparin 5,000 U sq. BID plus SCD's. Total time: Approximately (but not less than) 75 minutes.
[2024-05-11 08:33] LABS: Bedside Glucose 462 mg/dL (74-106)
[2024-05-11 09:49] LABS: Bedside Glucose 269 mg/dL (74-106)
[2024-05-11 10:18] LABS: Bedside Glucose 212 mg/dL (74-106)
--- NOTE | 2024-05-11 11:00 | CASEMGMT ---
Social Work Both Living Will and Power of Coal Cutting Machine Operator for Healthcare are scanned into Echart, daughter Reina Francisco is listed as healthcare power of real estate associate attorney. BLOSSOM Parnell
[2024-05-11 11:30] LABS: Bedside Glucose 200 mg/dL (74-106)
--- NOTE | 2024-05-11 11:36 | CASEMGMT ---
Readmission Chart Review 04/11/24-04/15/24. Dx: AE CHF, CP, and Medical Noncompliance 05/10/24. Dx: HONK with Leukocytosis and Possible Sepsis On index admission, the patient was discharged home with the assistance of her son. The patient's son is the primary caregiver and the patient?s daughter (Reina) is the healthcare power of senior storage engineer. The patient's daughter is at the bedside and states that the patient is confused and has dementia and the patient's daughter request that she talk to this manager of warehouse in private. Per the patient's daughter, the patient's son works and cannot care for the patient 24 hours a day. The patient's daughter states that the patient was not taking all of her medications as prescribed. The patient's daughter states that the patient was telling her that she was taking all of them as ordered, but whenever the daughter physically checked, it appeared to her that she was not. The patient's daughter also states that the patient has a continuous blood glucose monitor and that she has been telling the daughter that she has been taking her insulin shots as needed. Again, the patient's daughter states that she believes that the patient is just telling me what she wants me to hear. The patient's daughter states that the patient was unable to attend the follow-up appointment with the PCP due to something with my brother. The patient daughter states that the PCP appt was rescheduled for tomorrow. The patient was able to follow up with the block sawyer who discontinued the Xarelto. The patient's daughter states that the patient did weigh herself daily and did not find any issues with this. Reina states that the patient's son is a good, healthy cook and believes that the patient was able to adhere to the recommended low-fat/low-cholesterol, 1800 dyllan restriction, and 2000 mg salt diet. The patient's daughter also states that she believes that the patient has not been caring for herself entirely at home, including bathing. Moving forward, the daughter is concerned for the patient well-being at home and wants the patient to be placed in a long-term alf facility. Social work is aware and will follow up with this patient. The patient's daughter was reassured that care management is available for any questions or concerns that she might have. Beto QUINTERO RN CM
--- NOTE | 2024-05-11 11:59 | CASEMGMT ---
Social Work SW met w/daughter Reina and pt's son in regard to discharge plan. Reina explains that they are looking for pt to go somewhere long term care administrator. ABRAM explained to pt's children the Medicaid process, explained this is the one insurance that will pay fpc for SNF. Reina explained pt did apply once in the past and was denied, was told pt was over income. Pt was in [facility] in 2020 and then went to [facility] under pending Medicaid after for a month. The plan at that time was for short term however, not fpc. ABRAM explained that this may be the difference in the Medicaid application. Daughter would like help in completing the application, SW explained will let Brittany from [facility] know, ABRAM did call Brittany and left a message asking if she can help w/Medicaid application, let daughter know. ABRAM did provide to daughter a list via [facility] of long term facilities in network w/pt's [employer] insurance, in pt's preferred geographic area and complete w/quality and resource use data. ABRAM explained that we can initially look to see if pt would qualify initially for a skilled stay under her Aet[employer], and then transition to fpc under the Medicaid. ABRAM explained the precert process for [employer]. SW explained we can try under [employer] initially, if we cannot get precert will try to get pt into a facility under the pending Medicaid. ABRAM also did educate daughter and son that sometimes facilities will not take someone with pending Medicaid. Daughter would like 1. [facility] and 2. [facility]. SW advised her that she should pick additional facilities in event these facilities cannot take pt. Daughter states understanding. Plan: SNF, fpc. ABRAM will send referrals to [facility] and [facility] when appropriate, and Brittany to follow up w/daughter Reina to assist in applying for Medicaid. BLOSSOM Parnell
--- NOTE | 2024-05-11 12:15 | EX.PCM.CONCC ---
Assessment & Plan Assessment/Plan (1) Hyperosmolar hyperglycemic state (HHS): PLAN: Plan RECOMMENDATIONS: 1. Continue insulin infusion until hyperglycemia has improved. 2. Judicious use of IV fluids given underlying cardiomyopathy. 3. Discontinue antimicrobials if cultures remain negative tomorrow. 4. Continue PPI therapy and appropriate DVT prophylaxis. 5. The patient is to remain n.p.o. for now. IMPRESSIONS: 1. Hyperosmolar hyperglycemic state Most likely secondary to noncompliance with prescribed outpatient medical therapy. Hemoglobin A1c is significantly elevated. Plan to continue current supportive care with IV fluid resuscitation in a judicious manner, given the patient's underlying cardiomyopathy, along with continuous insulin infusion. Once her hyperglycemia has improved, the patient's diet will be advanced and she will be transition to basal and sliding scale insulin coverage. I have a low clinical index of suspicion for underlying sepsis. Okay to continue empiric antibiotics for the next 24 hours. If cultures remain negative tomorrow, will discontinue antibiotics accordingly. 2. Acute kidney injury Most likely secondary to intravascular volume depletion in the setting of #1. Anticipate improvement in creatinine/renal function with volume resuscitation. Continue to monitor urine output for now. No current indication for renal replacement therapy. 3. History of ischemic cardiomyopathy/hypertension/hyperlipidemia/depression/anxiety/paroxysmal atrial fibrillation Complicates care, management, recovery and prognosis. Continue supportive care as noted above. This note was generated with [employer] dictation software. It may contain incorrect words, spelling, and punctuation that were not noted in checking the note before signing. HPI Consult Data Date of Consult: 05/11/24 HPI Narrative Reason for Consultation: [facility] HPI Narrative: The patient is a 68-year-old female, with a history as outlined below, who presented to the emergency department on May 10 with generalized weakness and confusion. The patient has a known history of diabetes mellitus and is on outpatient insulin therapy under the discretion of her primary care provider. Although the patient reported to me that she has been compliant with her prescribed regimen, there is documentation to the contrary, indicating a possible issue with compliance. The patient has a medical history significant for coronary artery disease. She underwent recent cardiac catheterization in April 2024 with 50% stenosis in the circumflex LAD and a small diagonal branch with severe disease that was too small to intervene upon. Ultimately, medical therapy was recommended. Her EF at that time was noted to be 15% on echocardiogram. The patient also had evidence of stage III diastolic dysfunction. On presentation to the emergency department, the patient was documented to be afebrile hemodynamically stable. Initial laboratory evaluation revealed a white blood cell count of 20,000. Chemistry profile was notable for a sodium of 127, chloride of 82, BUN of 82 and creatinine of 2.23, increased from 1.07 in April 2024. Glucose was elevated at 1041. Hemoglobin A1c was noted to be 12.1. Lactate was elevated at 3.4. Toxicology screen was negative. Serum acetone level was negative. CT head revealed old left-sided cerebral and cerebellar infarcts. Chest x-ray demonstrated no acute cardiopulmonary process. CT abdomen/pelvis was unremarkable. The patient received supplemental IV fluid hydration and was placed on insulin infusion. She was admitted to the medical intensive care unit for further management. [facility] Medical History Osteoarthritis OAB (overactive bladder) Elevated liver enzymes Health care maintenance Colon cancer screening Hypersomnolence Bilateral knee pain Hearing difficulty Memory impairment Abdominal pain Urinary frequency Cardiology follow-up encounter History of atrial fibrillation History of echocardiogram Post-menopausal Loss of hearing Wears glasses Wears dentures Dementia Anxiety Insulin dependent diabetes mellitus Arthritis Walker as ambulation aid Bladder disease High cholesterol Back pain History of hiatal hernia Dietary restriction Gastric reflux Smoker History of pain when walking Hypertension TIA (transient ischemic attack) History of heart attack Dysphagia Right ear pain Difficulty swallowing Cognitive attention deficit URI (upper respiratory infection) Insomnia Anxiety and depression Cerebrovascular disease Unspecified dementia without behavioral disturbance Seasonal allergies History of stroke History of ischemic multifocal multiple vascular territories stroke Obesity Depression Hyperlipidemia Essential (primary) hypertension Type 2 diabetes mellitus Atherosclerotic heart disease of [place] coronary artery without angina pectoris Ventricular septal defect Paroxysmal atrial fibrillation Home Medications ?Medication ?Instructions ?Recorded ?Last Taken ?Type aspirin 81 mg tablet,delayed 81 mg PO DAILY [facility] 12/26/17 09/28/22 History release walker #1 ea 02/22/20 Unknown Rx pen needle, diabetic 31 gauge x #100 ea 02/25/20 Unknown Rx 5/16 (BD Ultra-Fine Short Pen Needle) pen needle, diabetic 32 gauge x #200 ea 03/06/22 Unknown Rx 5/32 (Easy Comfort Pen [place]) Lift Chair #1 ea 01/31/23 Unknown Rx flash glucose scanning reader #1 ea 03/13/23 Unknown Rx (FreeStyle Monie 2 [place]) flash glucose sensor (FreeStyle #1 ea 07/15/23 Unknown Rx Monie 2 Sensor kit) losartan 50 mg tablet 50 mg PO DAILY blood pressure #90 09/29/23 Unknown Rx TABLETS Novolog FlexPen U-100 Insulin 100 20 unit (0.2 mL) subcut TID 11/06/23 Unknown Rx unit/mL (3 mL) subcutaneous diabetes 3 months #54 mL (insulin aspart U-100) insulin degludec 100 unit/mL (3 50 unit (0.5 mL) subcut DAILY 11/06/23 Unknown Rx mL) subcutaneous pen (Tresiba diabetes 3 months #45 mL FlexTouch U-100 insulin) gabapentin 300 mg capsule 300 mg PO QHS nerve pain #90 caps 12/10/23 Unknown Rx omeprazole 40 mg capsule,delayed 40 mg PO DAILY reflux #90 caps 01/19/24 Unknown Rx release atorvastatin 40 mg tablet See Rx Instructions .Route 02/02/24 Unknown Rx .COMPLEX cholesterol #30 tabs donepezil 10 mg tablet See Rx Instructions .Route 02/02/24 Unknown Rx .COMPLEX memory #30 tabs glipizide 10 mg tablet, extended 10 mg PO BID for diabetes mellitus 02/05/24 Unknown Rx release 24 hr #60 TABLETS trazodone 50 mg tablet 50 mg PO QHS sleep #30 TABLETS 03/01/24 Unknown Rx duloxetine 30 mg capsule,delayed 30 mg PO DAILY mental health #90 ea 03/08/24 Unknown Rx release carvedilol 12.5 mg tablet 12.5 mg PO BID #180 tabs 04/21/24 Unknown Rx furosemide 40 mg tablet 40 mg PO DAILY #90 tabs 04/21/24 Unknown Rx spironolactone 25 mg tablet 25 mg PO DAILY #90 tabs 04/21/24 Unknown Rx Allergy/AdvReac Type Severity Reaction Status Date / Time No Known Allergies Allergy Verified 04/21/24 09:06 Family History Mother Ovarian cancer Father , age 79 Hypertension COPD (chronic obstructive pulmonary disease) Heart disease CVA (cerebral vascular accident) Sister , age 69 Multiple sclerosis Cancer bone cancer Sister Brain tumor Heart disease Brother A-fib Surgical History Hx of total hip arthroplasty History of esophagogastroduodenoscopy (EGD) Hx of section History of open heart surgery History of hysterectomy Hx of cholecystectomy History of left heart catheterization (04/03/11) History of coronary artery stent placement (04/06/11) Social History Smoking Status: Former smoker alcohol intake: never substance use type: does not use what type of physical activity do you participate in: none ROS ROS Narrative 10 systems were reviewed with pertinent positives as noted in the HPI above. Physical Exam Const alert and no apparent distress General Appearance: cooperative HEENT normocephalic and head/scalp atraumatic HEENT Narrative: Dry mucous membranes Eyes EOMs intact bilaterally and conjunctivae normal Neck supple General: trachea midline Chest inspection of chest normal Resp normal respiratory effort Auscultation: Negative for rales, rhonchi or wheezes Cardio regular rate and regular rhythm GI normal to inspection, nondistended, normoactive bowel sounds Extremity no clubbing, cyanosis or edema Skin no rashes or lesions noted Neuro CN's II-XII intact bilaterally, moves all extremities and no focal motor deficits Psych Mood & Affect: flat affect Lab / Micro Data 05/11/24 03:15 05/11/24 03:15 Labs: Laboratory Results - last 24 hr 05/10/24 18:20: WBC 20.5 H, RBC 5.03, Hgb 13.9, Hct 41.4, MCV 82.3, MCH 27.6, MCHC 33.6, RDW Std Deviation 40.0, RDW Coeff of Zakiya 13.5, Plt Count 297, MPV 11.2, Immature Gran % (Auto) 0.800, Neut % (Auto) 85.1 H, Lymph % (Auto) 7.6 L, Bond % (Auto) 6.4, Eos % (Auto) 0.0, Baso % (Auto) 0.1, Absolute Neuts (auto) 17.4 H, Absolute Lymphs (auto) 1.56, Nucleated RBC % 0, Sodium 127 L, Potassium 4.0, Chloride 82 L, Carbon Dioxide 30.0, Anion Gap 15, BUN 82 H, Creatinine 2.23 H, Estim Creat Clear Calc 27.75, Est GFR (MDRD) Af Amer 28 L, Est GFR (MDRD) Non-Af 23 L, BUN/Creatinine Ratio 36.8 H, Glucose 1041 H*, Hemoglobin A1c 12.1 H, Calcium 11.1 H, Troponin I High Sens 51, Acetone Level NEGATIVE 05/10/24 18:33: Urine Color Yellow, Urine Clarity Sl. Cloudy, Urine pH 5.0, Ur Specific [place] 1.010, Urine Protein 30 H, Urine Glucose (UA) 1000 H, Urine Ketones Negative, Urine Occult Blood 10 H, Urine Nitrite Negative, Urine Bilirubin Negative, Urine Urobilinogen Normal, Ur Leukocyte Esterase Negative, Urine RBC 0 SEEN, Urine WBC 0-5 SEEN, Ur Squamous Epith Cells 0-5 SEEN, Amorphous Sediment 1+ URATE, Urine Bacteria RARE, Urine Mucus 0 SEEN, Urine Opiates Screen NEGATIVE, Urine Methadone Screen NEGATIVE, Ur Barbiturates Screen NEGATIVE, Ur Phencyclidine Scrn NEGATIVE, Ur Amphetamines Screen NEGATIVE, MDMA (Ecstasy) Screen NEGATIVE, U Benzodiazepines Scrn NEGATIVE, Urine Cocaine Screen NEGATIVE, U Cannabinoids Screen NEGATIVE, Ur Drug Screen Comment 05/10/24 21:13: POC Glucose > 500 H* 05/10/24 21:15: Glucose 739 H* 05/10/24 22:32: Lactic Acid 3.4 H*, Folate 9.70, TSH 3.060, PTH Intact 56.3 05/10/24 22:49: POC Glucose > 500 H* 05/11/24 00:07: POC Glucose 442 H 05/11/24 00:40: Troponin I High Sens 83 H, Vitamin B12 789 05/11/24 01:08: POC Glucose 432 H 05/11/24 02:44: POC Glucose 409 H 05/11/24 03:15: WBC 19.2 H, RBC 4.24, Hgb 11.8 L, Hct 35.0 L, MCV 82.5, MCH 27.8, MCHC 33.7, RDW Std Deviation 41.0, RDW Coeff of Zakiya 13.8, Plt Count 215, MPV 10.6, Immature Gran % (Auto) 0.500, Neut % (Auto) 64.2, Lymph % (Auto) 13.5 L, Bond % (Auto) 7.4, Eos % (Auto) 14.1 H, Baso % (Auto) 0.3, Absolute Neuts (auto) 12.3 H, Absolute Lymphs (auto) 2.60, Nucleated RBC % 0, Differential Comment SCANNED, Sodium 138, Potassium 3.6, Chloride 103, Carbon Dioxide 27.0, Anion Gap 8, BUN 71 H, Creatinine 1.46 H, Estim Creat Clear Calc 41.78, Est GFR (MDRD) Af Amer 46 L, Est GFR (MDRD) Non-Af 38 L, BUN/Creatinine Ratio 48.6 H, Glucose 419 H, Lactic Acid 1.8, Calcium 9.0 05/11/24 03:57: POC Glucose 372 H 05/11/24 05:08: POC Glucose 369 H 05/11/24 05:59: POC Glucose 329 H 05/11/24 07:01: POC Glucose 336 H 05/11/24 08:12: POC Glucose 462 H* 05/11/24 08:59: POC Glucose 269 H 05/11/24 09:56: POC Glucose 212 H 05/11/24 11:10: POC Glucose 200 H Imaging Radiology Impression Chest X-Ray 05/10/24 18:49 IMPRESSION: No radiographic evidence of acute cardiopulmonary disease. Electronically Signed: Arvin Mancuso DO at 21:00 EST , Brain CT 05/10/24 18:54 IMPRESSION: Old left-sided cerebral and cerebellar infarcts. No acute intracranial pathology of the brain. Electronically Signed: Arvin Mancuso DO at 20:10 EST , Abdomen/Pelvis CT 05/10/24 21:47 IMPRESSION: No acute pathology of the abdomen and pelvis. Electronically Signed: Arvin Mancuso DO at 23:06 EST , Charges/Coding Visit Charges Inpatient E&M: 27400 Init Hosp L3
[2024-05-11] MEDS: Enoxaparin 40 MG/0.4 ML Syringe SC (12:47)
[2024-05-11] MEDS: Pantoprazole Sodium 40 MG in 0.9% Normal Saline (100mL MB+) 100 ML 330 MG IV (12:48)
[2024-05-11 13:09] LABS: Bedside Glucose 241 mg/dL (74-106)
[2024-05-11] MEDS: Insulin Glargine-YFGN 100 UNIT/ML Pen 50 UNIT SC (13:22)
[2024-05-11 17:28] LABS: Anion Gap 5 (5-15); BUN 56 mg/dL (7-18); BUN/Creat Ratio 38.1 RATIO (10-20); Calcium,Total 8.9 mg/dL (8.5-10.1); Chloride 105 mmol/L (98-107); Creatinine, Serum 1.47 mg/dL (0.55-1.02); EST Glomerular Filtration Rate 37 mL/min (>60); Est Glom Filt Rate - Afr Amer 45 mL/min (>60); Glucose 454 mg/dL (74-106); Potassium 4.2 mmol/L (3.5-5.1); Sodium Level 137 mmol/L (136-145)
[2024-05-11] MEDS: Insulin Lispro 100 UNIT/ML INSULN.PEN SC ×2 (17:45→20:38)
[2024-05-11 20:58] LABS: Bedside Glucose 334 mg/dL (74-106)
[2024-05-12] VITALS (11 sets, daily range): BP systolic 98–166; BP diastolic 61–78; PULSE 73–91; RESP 16–20; TEMP 36.2–36.8; O2SAT 92–99
[2024-05-12] MEDS: Piperacil/Tazobactam 3.375 GM in 0.9% Normal Saline (50mL MB+) 50 ML IV (06:00)
[2024-05-12] MEDS: Insulin Lispro 100 UNIT/ML INSULN.PEN SC ×4 (07:15→22:06)
[2024-05-12 07:21] LABS: Bedside Glucose 304 mg/dL (74-106)
--- NOTE | 2024-05-12 08:19 | PN.HOSP_ITS ---
Reason for Visit Reason for Visit: Diagnoses Elevated white blood cell count, unspecified (05/10/24) Type 2 diabetes mellitus with hyperosmolarity without nonketotic hyperglycemic- hyperosmolar coma ([facility]) (05/10/24) Hypercalcemia (05/10/24) Dehydration (05/10/24) Acidosis, unspecified (05/10/24) Acute metabolic acidosis (05/10/24) Unspecified dementia, unspecified severity, without behavioral disturbance, psychotic disturbance, mood disturbance, and anxiety (05/10/24) Unspecified sequelae of cerebral infarction (05/10/24) Acute kidney failure, unspecified (05/10/24) Adverse effect of unspecified drugs, medicaments and biological substances, initial encounter (05/10/24) Objective Data Objective Data Vital Signs: Vital Signs Temp Pulse Resp BP Pulse Ox O2 Del Method O2 Flow Rate 97.6 F L 90 19 H 149/66 H 92 Room Air 4 05/12/24 03:00 05/12/24 03:00 05/12/24 03:00 05/12/24 03:00 05/12/24 03:00 05/12/24 02:00 05/11/24 08:00 Oxygen Flow Rate (L/min) 4 Oxygen Delivery Method Room Air Weight: 189 lb 13.088 oz Body Mass Index (BMI) 28.8 Intake & Output: Intake and Output for Last 24 Hours 05/10/24 05/11/24 05/12/24 23:59 23:59 23:59 Intake Total 2022.46 / 2022.46 2703.04 / 2703.04 50 / 50 Output Total 1600 / 1600 Balance 2022. / 2022.46 1103.04 / 1103.04 50 / 50 Lab / Micro Data 05/11/24 03:15 05/11/24 16:52 Labs: Laboratory Results - last 24 hr 05/11/24 08:12: POC Glucose 462 H* 05/11/24 08:59: POC Glucose 269 H 05/11/24 09:56: POC Glucose 212 H 05/11/24 11:10: POC Glucose 200 H 05/11/24 12:51: POC Glucose 241 H 05/11/24 16:52: Sodium 137, Potassium 4.2, Chloride 105, Carbon Dioxide 27.0, Anion Gap 5, BUN 56 H, Creatinine 1.47 H, Estim Creat Clear Calc 41.50, Est GFR (MDRD) Af Amer 45 L, Est GFR (MDRD) Non-Af 37 L, BUN/Creatinine Ratio 38.1 H, G lucose 454 H*, Calcium 8.9 05/11/24 20:37: POC Glucose 334 H 05/12/24 06:51: POC Glucose 304 H Micro: Microbiology 05/11/24 03:43 Mucosa - Nasopharyngeal Respiratory Panel (PCR) - Final Physical Exam Narrative Seen and examined. Patient is awake and alert and talking coherent. She complained of mild abdominal pain, 2?4/10 intensity, mainly upper abdomen without radiation. Did not had BM since admission, last BM a day before admission. Mild nausea but no vomiting. Physical exam General: Alert, awake, oriented x 3. Speech coherent HEENT: Atraumatic, PERRLA, EOMI, Normocephalic Oral: Oral mucosa dry. No Gingival or Mucosal Lesions/ Ulcerations Neck: Supple, No JVD, Negative Carotid Bruits Chest wall/Lungs: Air entry diminished in bilateral lung bases. No crepitation/rhonchi Cardiovascular: A-fib , rate controlled, normal S1, Normal S2, No M/G/R Abdomen: Bowel Sounds Present, Soft, Non Tender, Non-Distended : No dysuria. No renal angle tenderness. No suprapubic tenderness. Extremities: Mild edema, Capillary Refill Less than 3 Seconds Skin: No rashes, No breakdown Musculoskeletal: No Tenderness to Palpation of Joints or Extremities Neurological: Cranial nerves II-XII grossly intact, DTR 2+/4. No acute focal neurological deficit. Psych/Mental Status:Flat affect Assessment & Plan Assessment/Plan (1) Hyperosmolar hyperglycemic state (HHS): (2) SHERYL (acute kidney injury): (3) Dehydration: (4) Adverse drug reaction: QUALIFIERS: Encounter type: initial encounter Qualified Code(s): T50.905A - Adverse effect of unspecified drugs, medicaments and biological substances, initial encounter (5) Leukocytosis: QUALIFIERS: Leukocytosis type: unspecified Qualified Code(s): D 72.829 - Elevated white blood cell count, unspecified (6) Lactic acidosis: (7) Hypercalcemia: (8) Acute metabolic acidosis: (9) DM hyperosmolarity type II, uncontrolled: (10) History of CVA with residual deficit: PLAN: Plan 68-year-old female was admitted with increased worsening weakness, confusion, increasing urinary incontinence over past few days. 1. Acute confusion/altered mental status, metabolic encephalopathy due to hyperosmolar hyperglycemic state: Blood sugar was high 1000s in BMP. Patient was treated with IV fluid. A1c 12.1%. Glucose 419. Patient is being treated with IV fluid aggressively and IV insulin drip 05/12: Altered mental status/encephalopathy resolved. Patient is talking coherent. Glucose is still elevated 304. Started on a scheduled Humalog insulin. Insulin dose increased transfer to PCU. Mild upper abdominal pain but no tenderness, constipation: Monitor. Started on laxatives. Possible gastritis/PUD. If it get worse will need CT abdomen. 2. SHERYL; due to prerenal/hypovolemia: With elevated serum creatinine of 2.23 mg/dL and BUN of 82 mg/dL with BUN/creatinine ratio of 36.8 present on admission 05/11: Creatinine is improving 1.46. 3. Leukocytosis of 20.5K with Lactic Acidosis of 3.4 mmol/L present on admission, possible inflammatory: Patient was empirically started on IV Zosyn. CT abdomen pelvis, chest x-ray and UA benign. 4. Mild Hypercalcemia of 11.1 mg/dL present on admission Give NS IVF and check intact-PTH. PTH normal. 5. History of TIA (2019) and history of CVA; of multiple vascular territories in the Left cerebrum and cerebellum (2011) possible vascular dementia 6. Depression with anxiety; on trazodone and duloxetine - Noted. Reinitiate these agents once patient has medically stabilized and can tolerate oral intake. 7. Essential hypertension; on losartan, carvedilol, spironolactone and furosemide - Hold scheduled antihypertensives for now and give IV Hydralazine prn for systolic blood pressure > 160 mmHg. 8. Hyperlipidemia; on atorvastatin - Restart statin once her condition improves. 9. Overweight; with BMI of 29.7 this admission - Weight loss will be recommended. 10. CAD; s/p ND (2011) with stent to LCX (2010), PAF not on anticoagulation, chronic systolic HFrEF, LVEF 40%. On baby aspirin-resume once patient mental function improved troponin 51 and 83. 11. Chronic dysphagia status post EGD and dilatation, GERD on omeprazole 12. Primary osteoarthritis ; with history of Right THR, chronic back pain and bilateral knee pain causing her to use a walker to ambulate at baseline -PT and OT 13. DVT prophylaxis - Heparin 5,000 U sq. BID plus SCD's. Charges/Coding Visit Charges Inpatient E&M: 89657 Subs Hosp L3
[2024-05-12] MEDS: Enoxaparin 40 MG/0.4 ML Syringe SC (09:23)
[2024-05-12] MEDS: 0.9% Saline Lock 10 ML Syringe IV ×2 (09:23→22:07)
[2024-05-12] MEDS: Ondansetron 4 MG/2 ML Vial IV (09:23)
[2024-05-12] MEDS: Insulin Glargine-YFGN 100 UNIT/ML Pen 65 UNIT SC (09:23)
[2024-05-12] MEDS: Senna/Docusate Sodium 1 Tablet 2 TABLET PO ×2 (09:24→22:06)
[2024-05-12] MEDS: Psyllium 1 PACKET PO ×3 (09:25→22:06)
--- NOTE | 2024-05-12 09:37 | CASEMGMT ---
Addendum entered by Katarzyna Garcia 05/12/24 10:22: Social Work Pt's dgt and son at [facility] and requesting meeting with ABRAM. Son and Dgt requesting referrals sent to [facility] and [facility]. Questions answered regarding ECF placement. Pt would initially benefit from skilled stay and then transition to termite control servicer care at the ECF. Family has interest in a memory care unit. Family state [facility] and [facility] application started. Family with additional questions for Brittany. SW updated DC assistant federal public defender to send referral to [facility]. ABRAM notified [facility] and she will meet with family today. Yesterday a list of SNF providers including quality and resource use data and consistent with the patient?s preferred geographic region, medical needs, and insurance network were provided from the [facility] Guide. Pt's dgt to review list and find other options in the event pt is unable to go to first and second choice. CRESENCIO Reece Original Note: Social Work Pt has completed therapy and SNF stay is recommended. DC assistant federal public defender updated and to send referral to preferred provider [facility]. Plan: [facility], pending acceptance and precert CRESENCIO Reece
--- NOTE | 2024-05-12 09:40 | CASEMGMT ---
Addendum entered by Stephanie Casas 05/12/24 10:13: [facility] declined d/t no bed availability. Stephanie Casas DC Planning Asst. Original Note: Discharge Planning Referral sent via [facility] to [facility]. Stephanie Casas DC Planning Asst.
--- NOTE | 2024-05-12 10:02 | CASEMGMT ---
Addendum entered by Stephanie Casas 05/12/24 13:13: [facility] declined d/t no bed availability. Stephanie Casas DC Planning Asst. Original Note: Discharge Planning Referral sent via [facility] to [facility]. Stephanie Casas DC Planning Asst.
--- NOTE | 2024-05-12 10:36 | PCM.PN.INT ---
Assessment & Plan Assessment/Plan (1) Hyperosmolar hyperglycemic state (HHS): PLAN: Plan RECOMMENDATIONS: 1. Increase basal insulin as ordered and continue sliding scale coverage. 2. Okay to discontinue antimicrobials from my perspective. 3. Continue PPI therapy and appropriate DVT prophylaxis. 4. Encourage incentive spirometer use and mobilize patient as tolerated. 5. The patient is medically stable for transfer out of the intensive care unit. Will sign off at this time. IMPRESSIONS: 1. Hyperosmolar hyperglycemic state Resolved. Most likely secondary to noncompliance with prescribed outpatient medical therapy. Hemoglobin A1c is significantly elevated. The patient was medically managed with a continuous insulin infusion and supplemental IV fluids. Her hyperglycemia has improved. She has since been weaned from the continuous insulin infusion and her diet has been advanced. Given that her blood sugars remain elevated, we will increase her basal insulin dose and continue sliding scale coverage. Given the low clinical index of suspicion for underlying sepsis, we will discontinue antimicrobials today. 2. Acute kidney injury Most likely secondary to intravascular volume depletion in the setting of #1. Continue to monitor urine output for now. No current indication for renal replacement therapy. 3. History of ischemic cardiomyopathy/hypertension/hyperlipidemia/depression/anxiety/paroxysmal atrial fibrillation Complicates care, management, recovery and prognosis. Continue supportive care as noted above. This note was generated with [employer] dictation software. It may contain incorrect words, spelling, and punctuation that were not noted in checking the note before signing. Subjective Subjective The patient was seen and examined at the bedside this morning. Events from the last 24 hours have been reviewed. The patient is currently afebrile, hemodynamically stable and maintaining appropriate oxygen saturations on room air. The patient has no specific complaints this morning. Her blood sugars remain elevated in 300s. Objective Data Objective Data The patient's most recent lab work, culture data and imaging studies have all been personally reviewed. Respiratory viral panel was negative. Blood cultures have not demonstrated any growth to date. Vital Signs: Vital Signs Temp Pulse Resp BP Pulse Ox O2 Del Method O2 Flow Rate 97.8 F 90 20 H 135/61 H 96 Room Air 4 05/12/24 10:00 05/12/24 10:00 05/12/24 10:00 05/12/24 10:00 05/12/24 10:00 05/12/24 10:00 05/11/24 08:00 Oxygen Flow Rate (L/min) 4 Oxygen Delivery Method Room Air Weight: 189 lb 13.088 oz Body Mass Index (BMI) 28.8 Intake & Output: Intake and Output for Last 24 Hours 05/10/24 05/11/24 05/12/24 23:59 23:59 23:59 Intake Total 2022. / 2022. 2703.04 / 2703.04 50 / 50 Output Total 1600 / 1600 0 / 0 Balance / 1103.04 / 1103.04 50 / 50 Lab / Micro Data Attestation: I reviewed the patient's lab results. 05/11/24 03:15 05/12/24 10:12 Labs: Laboratory Results - last 24 hr 05/11/24 11:10: POC Glucose 200 H 05/11/24 12:51: POC Glucose 241 H 05/11/24 16:52: Sodium 137, Potassium 4.2, Chloride 105, Carbon Dioxide 27.0, Anion Gap 5, BUN 56 H, Creatinine 1.47 H, Estim Creat Clear Calc 41.50, Est GFR (MDRD) Af Amer 45 L, Est GFR (MDRD) Non-Af 37 L, BUN/Creatinine Ratio 38.1 H, Glucose 454 H*, Calcium 8.9 05/11/24 20:37: POC Glucose 334 H 05/12/24 06:51: POC Glucose 304 H Micro: Microbiology 05/11/24 03:43 Mucosa - Nasopharyngeal Respiratory Panel (PCR) - Final Physical Exam Const alert and no apparent distress General Appearance: cooperative HEENT normocephalic and head/scalp atraumatic HEENT Narrative: Dry mucous membranes Eyes EOMs intact bilaterally and conjunctivae normal Neck supple General: trachea midline Chest inspection of chest normal Resp normal respiratory effort Auscultation: Negative for rales, rhonchi or wheezes Cardio regular rate and regular rhythm GI normal to inspection, nondistended, normoactive bowel sounds Extremity no clubbing, cyanosis or edema Skin no rashes or lesions noted Neuro CN's II-XII intact bilaterally, moves all extremities and no focal motor deficits Psych Mood & Affect: flat affect Charges/Coding Visit Charges Inpatient E&M: 21874 Subs Hosp L3
[2024-05-12] MEDS: Pantoprazole Sodium 40 MG in 0.9% Normal Saline (100mL MB+) 100 ML 330 MG IV (10:42)
[2024-05-12 11:24] LABS: ALB/GLOB Ratio 0.7 RATIO (0.9-2.4); AST(SGOT) 14 U/L (15-37); Alanine Aminotransfer ALT/SGPT 26 U/L (13-56); Albumin, Serum 2.7 g/dL (3.2-5.0); Alkaline Phosphatase 64 U/L (45-117); Anion Gap 6 (5-15); BUN 33 mg/dL (7-18); BUN/Creat Ratio 30.6 RATIO (10-20); Calcium,Total 8.8 mg/dL (8.5-10.1); Chloride 107 mmol/L (98-107); Creatinine, Serum 1.08 mg/dL (0.55-1.02); EST Glomerular Filtration Rate 53 mL/min (>60); Est Glom Filt Rate - Afr Amer 65 mL/min (>60); Estimated Creatinine Clearance 56.48 ml/min; Globulin 3.7 g/dL (2.2-4.2); Glucose 358 mg/dL (74-106); Potassium 3.8 mmol/L (3.5-5.1); Protein, Total 6.4 g/dL (6.4-8.2); Sodium Level 138 mmol/L (136-145)
[2024-05-12 12:02] LABS: Bedside Glucose 355 mg/dL (74-106)
--- NOTE | 2024-05-12 12:06 | NURSING ---
called report to Liliane PEREZ on [facility]
[2024-05-12] MEDS: Insulin Lispro 100 UNIT/ML INSULN.PEN 15 UNIT SC ×2 (13:01→17:28)
[2024-05-12] MEDS: Acetaminophen 650 MG Suppository RC (13:09)
--- NOTE | 2024-05-12 13:33 | CASEMGMT ---
Discharge Planning Referral sent via [facility] to [facility]. Stephanie Casas DC Planning Asst.
[2024-05-12] MEDS: Carvedilol 12.5 MG Tablet PO (17:26)
[2024-05-12] MEDS: Glucerna Shake 120 ML LIQUID PO (17:29)
[2024-05-12 18:42] LABS: Bedside Glucose 261 mg/dL (74-106)
[2024-05-12] MEDS: Atorvastatin Calcium 40 MG Tablet PO (22:06)
[2024-05-12] MEDS: Gabapentin 100 MG Capsule PO (22:06)
[2024-05-12] MEDS: traZODone 50 MG Tablet PO (22:06)
[2024-05-12 23:36] LABS: Bedside Glucose 157 mg/dL (74-106)
[2024-05-13 03:53] VITALS: BMI 28.3
[2024-05-13 03:55] VITALS: BP 121/52; PULSE 80; RESP 18; TEMP 36.8; O2SAT 97
[2024-05-13] MEDS: Psyllium 1 PACKET PO ×3 (06:13→22:54)
[2024-05-13 06:36] LABS: Absolute Lymphocyte Count 2.56 X10^3/uL (0.83-4.51); Absolute Neutrophil Count 5.6 X10^3/uL (2.0-7.7); Basophil# 0.04 X10^3/uL; Basophil% 0.4 % (0-1); Eosinophil# 0.06 X10^3/uL; Eosinophils% 0.7 % (0-5); Hematocrit 35.9 % (37-47); Hemoglobin 11.6 g/dL (12.0-15.0); Lymphocyte # 2.56 X10^3/ul (0.83-4.51); Lymphocyte % 28.4 % (19-41); Mean Corp Hgb Conc 32.3 g/dL (32-36); Mean Corpuscular Hgb 27.9 pg (27.0-32.0); Mean Corpuscular Volume 86.3 fL (81-99); Mean Platelet Vol. 10.7 fl (6.2-12.0); Monocyte# 0.68 X10^3/uL; Monocyte% 7.5 % (0-10); NRBC Flagged by Analyzer 0 % (0-5); Neutrophil # 5.61 X10^3/uL (2.7-7.7); Neutrophil % 62.3 % (47-70); Platelet Count 170 K/mm3 (150-450); RBC Distribution Width CV 13.8 % (11.6-14.6); RBC Distribution Width SD 43.1 fl (35.1-43.9); Red Blood Count 4.16 M/mm3 (4.2-5.4)
[2024-05-13 06:56] LABS: Anion Gap 7 (5-15); BUN 20 mg/dL (7-18); BUN/Creat Ratio 24.5 RATIO (10-20); Calcium,Total 8.8 mg/dL (8.5-10.1); Chloride 105 mmol/L (98-107); Creatinine, Serum 0.82 mg/dL (0.55-1.02); EST Glomerular Filtration Rate 74 mL/min (>60); Est Glom Filt Rate - Afr Amer 89 mL/min (>60); Estimated Creatinine Clearance 73.82 ml/min; Glucose 234 mg/dL (74-106); Potassium 3.8 mmol/L (3.5-5.1); Sodium Level 137 mmol/L (136-145)
[2024-05-13 09:00] LABS: Bedside Glucose 277 mg/dL (74-106)
[2024-05-13 09:30] VITALS: BP 137/70; PULSE 87; RESP 18; TEMP 37.1; O2SAT 95
[2024-05-13] MEDS: Insulin Lispro 100 UNIT/ML INSULN.PEN SC ×2 (09:30→13:31)
[2024-05-13] MEDS: Enoxaparin 40 MG/0.4 ML Syringe SC (09:31)
[2024-05-13] MEDS: Insulin Lispro 100 UNIT/ML INSULN.PEN 15 UNIT SC ×3 (09:31→17:12)
[2024-05-13] MEDS: Glucerna Shake 120 ML LIQUID PO ×3 (09:31→17:13)
[2024-05-13] MEDS: Spironolactone 25 MG Tablet PO (09:31)
[2024-05-13] MEDS: Losartan Potassium 50 MG Tablet PO (09:32)
[2024-05-13] MEDS: Aspirin E.C. 81 MG Tablet PO (09:32)
[2024-05-13] MEDS: Pantoprazole Sodium 40 MG Tablet PO (09:32)
[2024-05-13] MEDS: Carvedilol 12.5 MG Tablet PO (09:32)
[2024-05-13] MEDS: DULoxetine Hcl 30 MG Capsule PO (09:32)
[2024-05-13] MEDS: Insulin Glargine-YFGN 100 UNIT/ML Pen 65 UNIT SC (09:32)
[2024-05-13] MEDS: Senna/Docusate Sodium 1 Tablet 2 TABLET PO ×2 (09:33→22:54)
--- NOTE | 2024-05-13 12:14 | CASEMGMT ---
Discharge Planning Updates sent to [facility] with request to submit for precert. Stephanie Casas DC Planning Asst.
--- NOTE | 2024-05-13 12:24 | PN.HOSP_ITS ---
Reason for Visit Reason for Visit: Diagnoses Elevated white blood cell count, unspecified (05/10/24) Type 2 diabetes mellitus with hyperosmolarity without nonketotic hyperglycemic- hyperosmolar coma ([facility]) (05/10/24) Hypercalcemia (05/10/24) Dehydration (05/10/24) Acidosis, unspecified (05/10/24) Acute metabolic acidosis (05/10/24) Unspecified dementia, unspecified severity, without behavioral disturbance, psychotic disturbance, mood disturbance, and anxiety (05/10/24) Unspecified sequelae of cerebral infarction (05/10/24) Acute kidney failure, unspecified (05/10/24) Adverse effect of unspecified drugs, medicaments and biological substances, initial encounter (05/10/24) Objective Data Objective Data Vital Signs: Vital Signs Temp Pulse Resp BP Pulse Ox O2 Del Method O2 Flow Rate 98.7 F 87 18 137/70 H 95 Room Air 4 05/13/24 09:30 05/13/24 09:30 05/13/24 09:30 05/13/24 09:30 05/13/24 09:30 05/13/24 09:30 05/11/24 08:00 Oxygen Flow Rate (L/min) 4 Oxygen Delivery Method Room Air Weight: 186 lb 11.704 oz Body Mass Index (BMI) 28.3 Intake & Output: Intake and Output for Last 24 Hours 05/11/24 05/12/24 05/13/24 23:59 23:59 23:59 Intake Total 2703.04 / 2703.04 1400 / 1400 630 / 630 Output Total 1600 / 1600 0 / 0 100 / 100 Balance 1103.04 / 1103.04 1400 / 1400 530 / 530 Lab / Micro Data 05/13/24 05:52 05/13/24 05:52 Labs: Laboratory Results - last 24 hr 05/12/24 17:20: POC Glucose 261 H 05/12/24 22:03: POC Glucose 157 H 05/13/24 05:52: WBC 9.0, RBC 4.16 L, Hgb 11.6 L, Hct 35.9 L, MCV 86.3, MCH 27.9, MCHC 32.3, RDW Std Deviation 43.1, RDW Coeff of Zakiya 13.8, Plt Count 170, MPV 10.7, Immature Gran % (Auto) 0.700, Neut % (Auto) 62.3, Lymph % (Auto) 28.4, Cabell % (Auto) 7.5, Eos % (Auto) 0.7, Baso % (Auto) 0.4, Absolute Neuts (auto) 5.6, Absolute Lymphs (auto) 2.56, Nucleated RBC % 0, Sodium 137, Potassium 3.8, Chloride 105, Carbon Dioxide 25.0, Anion Gap 7, BUN 20 H, Creatinine 0.82, Estim Creat Clear Calc 73.82, Est GFR (MDRD) Af Amer 89, Est GFR (MDRD) Non-Af 74, B UN/Creatinine Ratio 24.5 H, Glucose 234 H, Calcium 8.8 05/13/24 08:43: POC Glucose 277 H Micro: Microbiology 05/10/24 22:57 Blood Culture (Wb) - Anticubital Right Blood Culture - Preliminary No growth in 48 hours. 05/10/24 22:32 Blood Culture (Wb) - Anticubital Right Blood Culture - Preliminary No growth in 48 hours. 05/11/24 03:43 Mucosa - Nasopharyngeal Respiratory Panel (PCR) - Final Physical Exam Narrative Seen and examined. Patient is awake and alert and talking coherent. She complained of mild abdominal pain, 2?4/10 intensity, mainly upper abdomen without radiation. Did not had BM since admission, last BM a day before admission. Mild nausea but no vomiting. Physical exam General: Alert, awake, oriented x 3. Speech coherent HEENT: Atraumatic, PERRLA, EOMI, Normocephalic Oral: Oral mucosa dry. No Gingival or Mucosal Lesions/ Ulcerations Neck: Supple, No JVD, Negative Carotid Bruits Chest wall/Lungs: Air entry diminished in bilateral lung bases. No crepitation/rhonchi Cardiovascular: A-fib , rate controlled, normal S1, Normal S2, No M/G/R Abdomen: Bowel Sounds Present, Soft, Non Tender, Non-Distended : No dysuria. No renal angle tenderness. No suprapubic tenderness. Extremities: Mild edema, Capillary Refill Less than 3 Seconds Skin: No rashes, No breakdown Musculoskeletal: No Tenderness to Palpation of Joints or Extremities Neurological: Cranial nerves II-XII grossly intact, DTR 2+/4. No acute focal neurological deficit. Psych/Mental Status:Flat affect Const alert and no apparent distress Constitutional Narrative: Patient is lethargic and confused but cooperative with a nontoxic appearance in addition to denying pain. General Appearance: cooperative Orientation / Consciousness: confused and lethargic HEENT normocephalic, head/scalp atraumatic and hearing grossly normal bilaterally Eyes PERRL and EOMs intact bilaterally Neck no lymphadenopathy and supple Resp normal respiratory effort, no retractions, no use of accessory muscles and clear to auscultation bilaterally Cardio regular rate and regular rhythm GI normal to inspection, nondistended, normoactive bowel sounds, soft to palpation, non-tender and non-distended Extremity normal to inspection, full ROM and no clubbing, cyanosis or edema Skin Skin Narrative: Patient has no evidence of rash, abscess or jaundice. Neuro CN's II-XII intact bilaterally, moves all extremities and no focal motor deficits Sensorium / Orientation: awake, alert, oriented to person and oriented to place Speech: speech normal Psych affect normal Assessment & Plan Assessment/Plan (1) Hyperosmolar hyperglycemic state (HHS): (2) SHERYL (acute kidney injury): (3) Dehydration: (4) Adverse drug reaction: QUALIFIERS: Encounter type: initial encounter Qualified Code(s): T50.905A - Adverse effect of unspecified drugs, medicaments and biological substances, initial encounter (5) Leukocytosis: QUALIFIERS: Leukocytosis type: unspecified Qualified Code(s): D 72.829 - Elevated white blood cell count, unspecified (6) Lactic acidosis: (7) Hypercalcemia: (8) Acute metabolic acidosis: (9) DM hyperosmolarity type II, uncontrolled: (10) History of CVA with residual deficit: PLAN: Plan 68-year-old female was admitted with increased worsening weakness, confusion, increasing urinary incontinence over past few days. 1. Acute confusion/altered mental status, metabolic encephalopathy due to hyperosmolar hyperglycemic state: Blood sugar was high 1000s in BMP. Patient was treated with IV fluid. A1c 12.1%. Glucose 419. Patient is being treated with IV fluid aggressively and IV insulin drip /: Altered mental status/encephalopathy resolved. Patient is talking coherent. Glucose is still elevated 304. Started on a scheduled Humalog insulin. Insulin dose increased transfer to PCU. Mild upper abdominal pain but no tenderness, constipation: Monitor. Started on laxatives. Possible gastritis/PUD. If it get worse will need CT abdomen. 2. SHERYL; due to prerenal/hypovolemia: With elevated serum creatinine of 2.23 mg/dL and BUN of 82 mg/dL with BUN/creatinine ratio of 36.8 present on admission 05/11: Creatinine is improving 1.46. 3. Leukocytosis of 20.5K with Lactic Acidosis of 3.4 mmol/L present on admission, possible inflammatory: Patient was empirically started on IV Zosyn. CT abdomen pelvis, chest x-ray and UA benign. 4. Mild Hypercalcemia of 11.1 mg/dL present on admission Give NS IVF and check intact-PTH. PTH normal. 5. History of TIA (2019) and history of CVA; of multiple vascular territories in the Left cerebrum and cerebellum (2011) possible vascular dementia 6. Depression with anxiety; on trazodone and duloxetine - Noted. Reinitiate these agents once patient has medically stabilized and can tolerate oral intake. 7. Essential hypertension; on losartan, carvedilol, spironolactone and furosemide - Hold scheduled antihypertensives for now and give IV Hydralazine prn for systolic blood pressure > 160 mmHg. 8. Hyperlipidemia; on atorvastatin - Restart statin once her condition improves. 9. Overweight; with BMI of 29.7 this admission - Weight loss will be recommended. 10. CAD; s/p GA (2011) with stent to LCX (2010), PAF not on anticoagulation, chronic systolic HFrEF, LVEF 40%. On baby aspirin-resume once patient mental function improved troponin 51 and 83. 11. Chronic dysphagia status post EGD and dilatation, GERD on omeprazole 12. Primary osteoarthritis ; with history of Right THR, chronic back pain and bilateral knee pain causing her to use a walker to ambulate at baseline -PT and OT 13. DVT prophylaxis - Heparin 5,000 U sq. BID plus SCD's.
[2024-05-13 12:59] LABS: Bedside Glucose 232 mg/dL (74-106)
--- NOTE | 2024-05-13 15:13 | CHAPLAIN ---
Type of Pastoral Visit ___ Initial Visit ___ Follow-up Visit ___ On-call Visit ___ General Patient Visit ___ Spiritual Assessment ___ Family Conference ___ Bereavement ___ Rapid Response ___ Code Blue ___ Other (describe below) Pastoral Care Referral From ___ Patient ___ Family ___ Nurse ___ Physician ___ School Clerk ___ Body Press Operator ___ Other (describe below) Sacrament/Intervention ___ Active listening ___ Anointing ___ Jew ___ Bereavement ___ Communion ___ Sharlene exploration ___ ___ Life review ___ Prayer ___ Reconciliation ___ Sacrament of Sick ___ Supportive presence ___ Wedding ___ Other (describe below) Pastoral Comments several attempts made to visit with this patient but she is sleeping at each occurrence;
[2024-05-13 15:30] VITALS: BP 92/56; PULSE 68; RESP 18; TEMP 37.1; O2SAT 93
--- NOTE | 2024-05-13 15:41 | CASEMGMT ---
Discharge Planning [facility] obtained auth to admit. Stephanie Casas DC Planning Asst.
--- NOTE | 2024-05-13 15:51 | CASEMGMT ---
Social Work- Pending MARCO A received from [facility]: [id number]. Pt going to [facility] skilled under insurance, but plans for LTC following. Facility notified. CRESENCIO Echeverria
--- NOTE | 2024-05-13 16:00 | PN.HOSP_ITS ---
Reason for Visit Reason for Visit: Diagnoses Elevated white blood cell count, unspecified (05/10/24) Type 2 diabetes mellitus with hyperosmolarity without nonketotic hyperglycemic- hyperosmolar coma ([facility]) (05/10/24) Hypercalcemia (05/10/24) Dehydration (05/10/24) Acidosis, unspecified (05/10/24) Acute metabolic acidosis (05/10/24) Unspecified dementia, unspecified severity, without behavioral disturbance, psychotic disturbance, mood disturbance, and anxiety (05/10/24) Unspecified sequelae of cerebral infarction (05/10/24) Acute kidney failure, unspecified (05/10/24) Adverse effect of unspecified drugs, medicaments and biological substances, initial encounter (05/10/24) Objective Data Objective Data Vital Signs: Vital Signs Temp Pulse Resp BP Pulse Ox O2 Del Method O2 Flow Rate 98.8 F 68 18 92/56 L 93 Room Air 4 05/13/24 15:30 05/13/24 15:30 05/13/24 15:30 05/13/24 15:30 05/13/24 15:30 05/13/24 15:30 05/11/24 08:00 Oxygen Flow Rate (L/min) 4 Oxygen Delivery Method Room Air Weight: 186 lb 11.704 oz Body Mass Index (BMI) 28.3 Intake & Output: Intake and Output for Last 24 Hours 05/11/24 05/12/24 05/13/24 23:59 23:59 23:59 Intake Total 2703.04 / 2703.04 1400 / 1400 630 / 630 Output Total 1600 / 1600 0 / 0 100 / 100 Balance 1103.04 / 1103.04 1400 / 1400 530 / 530 Lab / Micro Data 05/13/24 05:52 05/13/24 05:52 Labs: Laboratory Results - last 24 hr 05/12/24 17:20: POC Glucose 261 H 05/12/24 22:03: POC Glucose 157 H 05/13/24 05:52: WBC 9.0, RBC 4.16 L, Hgb 11.6 L, Hct 35.9 L, MCV 86.3, MCH 27.9, MCHC 32.3, RDW Std Deviation 43.1, RDW Coeff of Zakiya 13.8, Plt Count 170, MPV 10.7, Immature Gran % (Auto) 0.700, Neut % (Auto) 62.3, Lymph % (Auto) 28.4, Stephens % (Auto) 7.5, Eos % (Auto) 0.7, Baso % (Auto) 0.4, Absolute Neuts (auto) 5.6, Absolute Lymphs (auto) 2.56, Nucleated RBC % 0, Sodium 137, Potassium 3.8, Chloride 105, Carbon Dioxide 25.0, Anion Gap 7, BUN 20 H, Creatinine 0.82, Estim Creat Clear Calc 73.82, Est GFR (MDRD) Af Amer 89, Est GFR (MDRD) Non-Af 74, B UN/Creatinine Ratio 24.5 H, Glucose 234 H, Calcium 8.8 05/13/24 08:43: POC Glucose 277 H 05/13/24 12:07: POC Glucose 232 H Micro: Microbiology 05/10/24 22:57 Blood Culture (Wb) - Anticubital Right Blood Culture - Preliminary No growth in 48 hours. 05/10/24 22:32 Blood Culture (Wb) - Anticubital Right Blood Culture - Preliminary No growth in 48 hours. 05/11/24 03:43 Mucosa - Nasopharyngeal Respiratory Panel (PCR) - Final Physical Exam Narrative Seen and examined. Patient is doing well. Blood pressure was better 121/50 2 in the morning but decreased 92/56 after Coreg and losartan. Patient is awake and alert and talking coherent. No acute issues. Physical exam General: Alert, awake, oriented x 3. Speech coherent HEENT: Atraumatic, PERRLA, EOMI, Normocephalic Oral: Oral mucosa dry. No Gingival or Mucosal Lesions/ Ulcerations Neck: Supple, No JVD, Negative Carotid Bruits Chest wall/Lungs: Air entry diminished in bilateral lung bases. No crepitation/rhonchi Cardiovascular: A-fib , rate controlled, normal S1, Normal S2, No M/G/R Abdomen: Bowel Sounds Present, Soft, Non Tender, Non-Distended : No dysuria. No renal angle tenderness. No suprapubic tenderness. Extremities: Mild edema, Capillary Refill Less than 3 Seconds Skin: No rashes, No breakdown Musculoskeletal: No Tenderness to Palpation of Joints or Extremities Neurological: Cranial nerves II-XII grossly intact, DTR 2+/4. No acute focal neurological deficit. Psych/Mental Status:Flat affect Assessment & Plan Assessment/Plan (1) Hyperosmolar hyperglycemic state (HHS): (2) SHERYL (acute kidney injury): (3) Dehydration: (4) Adverse drug reaction: QUALIFIERS: Encounter type: initial encounter Qualified Code(s): T50.905A - Adverse effect of unspecified drugs, medicaments and biological substances, initial encounter (5) Leukocytosis: QUALIFIERS: Leukocytosis type: unspecified Qualified Code(s): D 72.829 - Elevated white blood cell count, unspecified (6) Lactic acidosis: (7) Hypercalcemia: (8) Acute metabolic acidosis: (9) DM hyperosmolarity type II, uncontrolled: (10) History of CVA with residual deficit: PLAN: Plan 68-year-old female was admitted with increased worsening weakness, confusion, increasing urinary incontinence over past few days. 1. Acute confusion/altered mental status, metabolic encephalopathy due to hyperosmolar hyperglycemic state: Blood sugar was high 1000s in BMP. Patient was treated with IV fluid. A1c 12.1%. Glucose 419. Patient is being treated with IV fluid aggressively and IV insulin drip 05/12: Altered mental status/encephalopathy resolved. Patient is talking coherent. Glucose is still elevated 304. Started on a scheduled Humalog insulin. Insulin dose increased transfer to PCU. 05/13: Blood pressure on lower side probably due to antihypertensive agent. Losartan discontinued. Cardura dose decreased to 6.05 mg twice daily. Mild upper abdominal pain but no tenderness, constipation: Monitor. Started on laxatives. Possible gastritis/PUD. If it get worse will need CT abdomen. 05/13: Abdominal pain resolved 2. SHERYL; due to prerenal/hypovolemia: With elevated serum creatinine of 2.23 mg/dL and BUN of 82 mg/dL with BUN/creatinine ratio of 36.8 present on admission 05/11: Creatinine is improving 1.46. 05/13: Creatinine 0.8. SHERYL resolved 3. Leukocytosis of 20.5K with Lactic Acidosis of 3.4 mmol/L present on admission, possible inflammatory: Patient was empirically started on IV Zosyn. CT abdomen pelvis, chest x-ray and UA benign. 4. Mild Hypercalcemia of 11.1 mg/dL present on admission Give NS IVF and check intact-PTH. PTH normal. 5. History of TIA (2019) and history of CVA; of multiple vascular territories in the Left cerebrum and cerebellum (2011) possible vascular dementia 6. Depression with anxiety; on trazodone and duloxetine - Noted. Reinitiate these agents once patient has medically stabilized and can tolerate oral intake. 7. Essential hypertension; on losartan, carvedilol, spironolactone and furosemide - Hold scheduled antihypertensives for now and give IV Hydralazine prn for systolic blood pressure > 160 mmHg. 8. Hyperlipidemia; on atorvastatin - Restart statin once her condition improves. 9. Overweight; with BMI of 29.7 this admission - Weight loss will be recommended. 10. CAD; s/p [place] (2011) with stent to LCX (2010), PAF not on anticoagulation, chronic systolic HFrEF, LVEF 40%. On baby aspirin-resume once patient mental function improved troponin 51 and 83. 11. Chronic dysphagia status post EGD and dilatation, GERD on omeprazole 12. Primary osteoarthritis ; with history of Right THR, chronic back pain and bilateral knee pain causing her to use a walker to ambulate at baseline -PT and OT 13. DVT prophylaxis - Heparin 5,000 U sq. BID plus SCD's. Charges/Coding Visit Charges Inpatient E&M: 50432 Subs Hosp L2
--- NOTE | 2024-05-13 16:04 | CASEMGMT ---
Nursing updated RN CM that daughter was at bedside and wanted updated regarding plan. RN CM updated daughter that patient was accepted [facility] and that precert had been obtained, hospitalist is anticipating discharge tomorrow. Daughter states that family can transport patient to SNF tomorrow and inquired if there is a certain time for discharge. RN CM asked DC planning consultant and SNF would prefer transport prior to 5pm. RN CM updated daughter and states they work on arranging transportation.
[2024-05-13 16:42] LABS: Bedside Glucose 135 mg/dL (74-106)
[2024-05-13 20:15] VITALS: BP 128/62; PULSE 65; RESP 18; TEMP 36.2; O2SAT 97
[2024-05-13] MEDS: 0.9% Saline Lock 10 ML Syringe IV (22:54)
[2024-05-13] MEDS: Gabapentin 100 MG Capsule PO (22:54)
[2024-05-13] MEDS: Atorvastatin Calcium 40 MG Tablet PO (22:54)
[2024-05-13] MEDS: traZODone 50 MG Tablet PO (22:54)
[2024-05-13 23:18] LABS: Bedside Glucose 125 mg/dL (74-106)
[2024-05-14 02:20] VITALS: BP 114/56; PULSE 77; RESP 18; TEMP 36.4; O2SAT 95
[2024-05-14 04:12] VITALS: BMI 28.4
[2024-05-14] MEDS: Psyllium 1 PACKET PO (05:36)
[2024-05-14] MEDS: 0.9% Saline Lock 10 ML Syringe IV (05:36)
[2024-05-14 05:40] VITALS: BP 145/68; PULSE 79; RESP 18; TEMP 36.7; O2SAT 97
[2024-05-14 07:14] LABS: Absolute Neutrophil Count 4.6 X10^3/uL (2.0-7.7); Basophil# 0.02 X10^3/uL; Basophil% 0.3 % (0-1); Eosinophil# 0.06 X10^3/uL; Eosinophils% 0.8 % (0-5); Hematocrit 33.5 % (37-47); Hemoglobin 11.1 g/dL (12.0-15.0); Lymphocyte % 29.1 % (19-41); Mean Corp Hgb Conc 33.1 g/dL (32-36); Mean Corpuscular Volume 84.6 fL (81-99); Mean Platelet Vol. 10.9 fl (6.2-12.0); Monocyte# 0.68 X10^3/uL; NRBC Flagged by Analyzer 0 % (0-5); Neutrophil # 4.55 X10^3/uL (2.7-7.7); Neutrophil % 60.1 % (47-70); Platelet Count 161 K/mm3 (150-450); RBC Distribution Width CV 13.6 % (11.6-14.6); RBC Distribution Width SD 41.8 fl (35.1-43.9); Red Blood Count 3.96 M/mm3 (4.2-5.4); White Blood Count 7.6 K/mm3 (4.4-11.0)
[2024-05-14 07:34] VITALS: BP 149/79; PULSE 81; RESP 18; TEMP 36.8; O2SAT 98
[2024-05-14 07:38] LABS: Anion Gap 4 (5-15); BUN 21 mg/dL (7-18); BUN/Creat Ratio 23.2 RATIO (10-20); Calcium,Total 8.6 mg/dL (8.5-10.1); Chloride 104 mmol/L (98-107); EST Glomerular Filtration Rate 65 mL/min (>60); Est Glom Filt Rate - Afr Amer 79 mL/min (>60); Estimated Creatinine Clearance 67.33 ml/min; Glucose 280 mg/dL (74-106); Potassium 3.7 mmol/L (3.5-5.1); Sodium Level 135 mmol/L (136-145)
[2024-05-14] MEDS: Glucerna Shake 120 ML LIQUID PO (08:38)
[2024-05-14] MEDS: Insulin Lispro 100 UNIT/ML INSULN.PEN 15 UNIT SC ×2 (08:39→12:34)
[2024-05-14] MEDS: Insulin Lispro 100 UNIT/ML INSULN.PEN SC ×2 (08:41→12:34)
[2024-05-14] MEDS: Carvedilol 6.25 MG Tablet PO (08:42)
[2024-05-14] MEDS: DULoxetine Hcl 30 MG Capsule PO (08:42)
[2024-05-14] MEDS: Aspirin E.C. 81 MG Tablet PO (08:43)
[2024-05-14] MEDS: Pantoprazole Sodium 40 MG Tablet PO (08:43)
[2024-05-14] MEDS: Enoxaparin 40 MG/0.4 ML Syringe SC (08:43)
[2024-05-14] MEDS: Spironolactone 25 MG Tablet PO (08:43)
[2024-05-14] MEDS: Senna/Docusate Sodium 1 Tablet 2 TABLET PO (08:44)
[2024-05-14 08:56] VITALS: BP 119/75; PULSE 74; RESP 18; TEMP 36.8; O2SAT 98
[2024-05-14 09:00] VITALS: RESP 18
--- NOTE | 2024-05-14 09:33 | TREXTCAR_ITS ---
Diet Diet Order/Speech Therapy: 05/11/24 11:24 ADA [Diet: Consistent Carb - Calorie Controlled] Food consistency:: Regular Liquid Consistency:: Regular/Thin How many daily calories?: 1800 calorie Routine Orders/Code Status Suppository Type: Dulcolax 10mg Suppository Frequency: Daily PRN DC O2, CPAP, BIPAP needs Additional Home O2 Discharge instructions: No Therapies Extremity Affected:: Bilateral Lower Physical Therapy: Eval and Treat Occupational Therapy: Eval and Treat Speech Therapy: Eval and Treat Problem/Diagnosis (1) Hyperosmolar hyperglycemic state (HHS): Status: Acute Code(s): E11.00 - Type 2 diabetes mellitus with hyperosmolarity without nonketotic hyperglycemic-hyperosmolar coma (NKHHC) (2) SHERYL (acute kidney injury): Status: Acute Code(s): N17.9 - Acute kidney failure, unspecified (3) Dehydration: Status: Acute Code(s): E86.0 - Dehydration (4) Adverse drug reaction: Status: Acute Code(s): T50.905A - Adverse effect of unspecified drugs, medicaments and biological substances, initial encounter (5) Leukocytosis: Status: Acute Code(s): D72.829 - Elevated white blood cell count, unspecified (6) Lactic acidosis: Status: Acute Code(s): E87.20 - Acidosis, unspecified (7) Hypercalcemia: Status: Acute Code(s): E83.52 - Hypercalcemia (8) Acute metabolic acidosis: Status: Acute Code(s): E87.21 - Acute metabolic acidosis (9) DM hyperosmolarity type II, uncontrolled: Status: Acute Code(s): E11.00 - Type 2 diabetes mellitus with hyperosmolarity without nonketotic hyperglycemic-hyperosmolar coma (NKHHC) (10) History of CVA with residual deficit: Status: Acute Code(s): I69.30 - Unspecified sequelae of cerebral infarction Plan 68-year-old female was admitted with increased worsening weakness, confusion, increasing urinary incontinence over past few days. 1. Acute confusion/altered mental status, metabolic encephalopathy due to hyperosmolar hyperglycemic state: Blood sugar was high 1000s in BMP. Patient was treated with IV fluid. A1c 12.1%. Glucose 419. Patient is being treated with IV fluid aggressively and IV insulin drip 05/12: Altered mental status/encephalopathy resolved. Patient is talking coherent. Glucose is still elevated 304. Started on a scheduled Humalog insulin. Insulin dose increased transfer to PCU. 05/13: Blood pressure on lower side probably due to antihypertensive agent. Losartan discontinued. Cardura dose decreased to 6.05 mg twice daily. Mild upper abdominal pain but no tenderness, constipation: Monitor. Started on laxatives. Possible gastritis/PUD. If it get worse will need CT abdomen. 05/13: Abdominal pain resolved 2. SHERYL; due to prerenal/hypovolemia: With elevated serum creatinine of 2.23 mg/dL and BUN of 82 mg/dL with BUN/creatinine ratio of 36.8 present on admission 05/11: Creatinine is improving 1.46. 05/13: Creatinine 0.8. SHERYL resolved 3. Leukocytosis of 20.5K with Lactic Acidosis of 3.4 mmol/L present on admission, possible inflammatory: Patient was empirically started on IV Zosyn. CT abdomen pelvis, chest x-ray and UA benign. 4. Mild Hypercalcemia of 11.1 mg/dL present on admission Give NS IVF and check intact-PTH. PTH normal. 5. History of TIA (2019) and history of CVA; of multiple vascular territories in the Left cerebrum and cerebellum (2011) possible vascular dementia 6. Depression with anxiety; on trazodone and duloxetine - Noted. Reinitiate these agents once patient has medically stabilized and can tolerate oral intake. 7. Essential hypertension; on losartan, carvedilol, spironolactone and furosemide - Hold scheduled antihypertensives for now and give IV Hydralazine prn for systolic blood pressure > 160 mmHg. 8. Hyperlipidemia; on atorvastatin - Restart statin once her condition improves. 9. Overweight; with BMI of 29.7 this admission - Weight loss will be recommended. 10. CAD; s/p [place] (2011) with stent to LCX (2010), PAF not on anticoagulation, chronic systolic HFrEF, LVEF 40%. On baby aspirin-resume once patient mental function improved troponin 51 and 83. 11. Chronic dysphagia status post EGD and dilatation, GERD on omeprazole 12. Primary osteoarthritis ; with history of Right THR, chronic back pain and bilateral knee pain causing her to use a walker to ambulate at baseline -PT and OT 13. DVT prophylaxis - Heparin 5,000 U sq. BID plus SCD's. Allergies/Procedures Done in Hospital Allergies No Known Allergies Allergy (Verified 04/21/24 09:06) Type of Care/Length of Stay Estimated LOS: Convalescent Care Less Than 30 days Type of Care Needed: Skilled Rehab Potential: Good Prognosis: Good Additional Orders/Day of Discharge Day of Discharge: 05/14/24 Dietary and Speech Recommendations Dietitian Recommendations/Changes: Adjust 1800 calorie controlled/consistent carbohydrate diet. Consider cardiac restriction, as oral intake improves Will order 120ml glucerna shake TID daily with medpass, prefers chocolate. Will monitor weight, as available. Reviewed and approved by Marga Johnson, MS, RDN, LD. Discharge Plan Admission Admit Date/Time: 05/10/24 22:12 Attending Provider: Jareth Holley Primary Care Provider: Obed Scott Consulting Providers: Ramana Lau Instructions Additional Instructions / Restrictions: Hold stool softener for more than 1 BM per day. Discharge Orders/Prescriptions Prescriptions: New carvedilol 6.25 mg Tablet 6.25 mg PO BIDCM Qty: 0 0RF gabapentin 100 mg Capsule 100 mg PO QHS Qty: 0 0RF insulin lispro [Humalog KwikPen Insulin] 100 unit/mL Insulin Pen See Protocol subcut ACHS Qty: 0 0RF Protocol: 5. Sliding Scale Insulin High Dosing Condition: 150-209 mg/dl = 3 units Condition: 210-259 mg/dl = 6 units Condition: 260-324 mg/dl = 9 units Condition: 325-374 mg/dl = 12 units Condition: 375-409 mg/dl = 14 units Condition: 410-449 mg/dl = 16 units Condition: Greater than 449 call physician Protocol Text: Suggested for: - Patients on Total Daily Insulin Dose of 81-120 units - Very insulin resistant patients HIGH DOSING ALGORITHM sennosides-docusate sodium [Stimulant Laxative Plus] 8.6-50 mg Tablet 2 tab PO BID Qty: 0 0RF Daily Fiber (psyllium-aspart) 3 gram Powder In Packet 1 packet PO TID Qty: 0 0RF Continued spironolactone 25 mg tablet 25 mg PO DAILY Qty: 90 3RF Rx Instructions: Hold for serum potassium more than 5.0 aspirin 81 MG tablet,delayed release (DR/EC) 81 mg PO DAILY (DME) walker Misc See Rx Instructions .ROUTE .MEDSUPPLY Qty: 1 0RF Rx Instructions: As directed (DME) pen needle, diabetic [BD Ultra-Fine Short Pen Needle] 31 gauge x 5/16 needle See Rx Instructions .ROUTE .MEDSUPPLY Qty: 100 5RF Rx Instructions: bid (DME) pen needle, diabetic [Easy Comfort Pen [place]] 32 gauge x 5/32 needle See Rx Instructions .ROUTE .MEDSUPPLY Qty: 200 3RF Rx Instructions: As directed (DME) Lift Chair See Rx Instructions .Route .MEDSUPPLY Qty: 1 0RF Rx Instructions: As directed (DME) FreeStyle Monie 2 [place] Misc See Rx Instructions .Route Qty: 1 5RF Rx Instructions: As directed (DME) FreeStyle Monie 2 Sensor Kit See Rx Instructions .Route Qty: 1 1RF Rx Instructions: As directed omeprazole 40 mg capsule,delayed release(DR/EC) 40 mg PO DAILY Qty: 90 0RF atorvastatin 40 mg tablet See Rx Instructions .ROUTE .COMPLEX Qty: 30 3RF Dose Instruction: TAKE 1 TABLET BY MOUTH AT BEDTIME FOR CHOLESTEROL Rx Instructions: TAKE 1 TABLET BY MOUTH AT BEDTIME FOR CHOLESTEROL donepezil 10 mg tablet See Rx Instructions .ROUTE .COMPLEX Qty: 30 3RF Dose Instruction: TAKE 1 TABLET BY MOUTH ONCE DAILY AT BEDTIME Rx Instructions: TAKE 1 TABLET BY MOUTH ONCE DAILY AT BEDTIME glipizide 10 mg tablet extended release 24hr 10 mg PO BID Qty: 60 0RF trazodone 50 mg tablet 50 mg PO QHS Qty: 30 0RF duloxetine 30 mg capsule,delayed release(DR/EC) 30 mg PO DAILY Qty: 90 0RF Changed furosemide 40 mg tablet 20 mg PO DAILY Qty: 90 3RF Rx Instructions: Take extra 20 mg dose at 5 PM for increased leg swelling or weight gain 5 pounds in 1 week. losartan 50 mg tablet 25 mg PO DAILY Qty: 90 0RF Rx Instructions: Hold for SBP less than 120 mmHg insulin aspart U-100 [Novolog FlexPen U-100 Insulin] 100 unit/mL (3 mL) insulin pen 15 unit subcut TID 90 Days Qty: 54 1RF insulin degludec [Tresiba FlexTouch U-100] 100 unit/mL (3 mL) insulin pen 60 unit subcut DAILY 90 Days Qty: 45 1RF Discontinued carvedilol 12.5 mg tablet 12.5 mg PO BID Qty: 180 3RF Rx Instructions: Hold for heart less than 50 or systolic blood pressure less than 100 mmHg. gabapentin 300 mg capsule 300 mg PO QHS Qty: 90 0RF Referrals / Follow Up: Obed Scott MD [Primary Care Provider] - Within 2 Weeks Disposition Disposition (needs filled in before D/C Order can be placed): Group Home Facility (4) Adverse drug reaction Qualifiers: Encounter type: initial encounter Qualified Code(s): T50.905A - Adverse effect of unspecified drugs, medicaments and biological substances, initial encounter (5) Leukocytosis Qualifiers: Leukocytosis type: unspecified Qualified Code(s): D72.829 - Elevated white blood cell count, unspecified
--- NOTE | 2024-05-14 10:52 | CASEMGMT ---
Patient is ready for discharge to [facility] under skilled level of care. SW completed a PASRR. Patient's family will transport via private vehicle. Plan: d/c to [facility] under skilled level of care on a PASRR. Family will transport via private vehicle. Jumana NELSON
--- NOTE | 2024-05-14 10:57 | CASEMGMT ---
Discharge Planning Discharge orders, signed med list, and transport time sent to [facility]. Pts daughter (Reina) will transport patient between 1-2p. Nursing, SW, and pt updated. Stephanie Casas DC Planning Asst.
[2024-05-14] MEDS: Insulin Glargine-YFGN 100 UNIT/ML Pen 65 UNIT SC (11:21)
[2024-05-14 12:13] LABS: Bedside Glucose 243 mg/dL (74-106)
--- NOTE | 2024-05-14 14:58 | PCM.DC.SUM ---
Providers Date of Admission: 05/10/24 Date of Discharge: 05/14/24 Primary Care Physician: Dr. Obed Scott MD Consultations 05/10/24 23:45 Consult: Animal Trapper / Pulmonary Medicine Routine Consulting Provider: Intensivists/Pulmonary Med Reason for Consult: HONK with Leukocytosis of 20.5K POA with possible Sepsis. EMERGENT Consult: No MD Notified: Yes Date Notified: 05/11/24 Time Notified: 06:25 Method of Notification: Text Reason For Visit: HONK WITH LEUKOCYOSIS OF 20.5K AND POSSIBLE SEPSIS Diagnosis Discharge Diagnosis (1) Hyperosmolar hyperglycemic state (HHS): Status: Acute Code(s): E11.00 - Type 2 diabetes mellitus with hyperosmolarity without nonketotic hyperglycemic-hyperosmolar coma (NKHHC) (2) SHERYL (acute kidney injury): Status: Acute Code(s): N17.9 - Acute kidney failure, unspecified (3) Dehydration: Status: Acute Code(s): E86.0 - Dehydration (4) Adverse drug reaction: Status: Acute Code(s): T50.905A - Adverse effect of unspecified drugs, medicaments and biological substances, initial encounter Qualifiers: Encounter type: initial encounter Qualified Code(s): T50.905A - Adverse effect of unspecified drugs, medicaments and biological substances, initial encounter (5) Leukocytosis: Status: Acute Code(s): D72.829 - Elevated white blood cell count, unspecified Qualifiers: Leukocytosis type: unspecified Qualified Code(s): D72.829 - Elevated white blood cell count, unspecified (6) Lactic acidosis: Status: Acute Code(s): E87.20 - Acidosis, unspecified (7) Hypercalcemia: Status: Acute Code(s): E83.52 - Hypercalcemia (8) Acute metabolic acidosis: Status: Acute Code(s): E87.21 - Acute metabolic acidosis (9) DM hyperosmolarity type II, uncontrolled: Status: Acute Code(s): E11.00 - Type 2 diabetes mellitus with hyperosmolarity without nonketotic hyperglycemic-hyperosmolar coma (NKHHC) (10) History of CVA with residual deficit: Status: Acute Code(s): I69.30 - Unspecified sequelae of cerebral infarction Plan 68-year-old female was admitted with increased worsening weakness, confusion, increasing urinary incontinence over past few days. 1. Acute confusion/altered mental status, metabolic encephalopathy due to hyperosmolar hyperglycemic state: Blood sugar was high 1000s in BMP. Patient was treated with IV fluid. A1c 12.1%. Glucose 419. Patient is being treated with IV fluid aggressively and IV insulin drip 05/12: Altered mental status/encephalopathy resolved. Patient is talking coherent. Glucose is still elevated 304. Started on a scheduled Humalog insulin. Insulin dose increased transfer to PCU. 05/13: Blood pressure on lower side probably due to antihypertensive agent. Losartan discontinued. Cardura dose decreased to 6.05 mg twice daily. 05/14: Blood pressure fluctuates between 110s to 145. Carvedilol dose 6.25 mg twice daily. Losartan dose decreased to 25 mg daily. Lasix dose also decreased to 20 mg daily. Mild upper abdominal pain but no tenderness, constipation: Monitor. Started on laxatives. Possible gastritis/PUD. If it get worse will need CT abdomen. 05/13: Abdominal pain resolved 2. SHERYL; due to prerenal/hypovolemia: With elevated serum creatinine of 2.23 mg/dL and BUN of 82 mg/dL with BUN/creatinine ratio of 36.8 present on admission 05/11: Creatinine is improving 1.46. 05/13: Creatinine 0.8. SHERYL resolved 05/14: Because of SHERYL, doses of losartan and Lasix decreased also her BP is normotensive 3. Leukocytosis of 20.5K with Lactic Acidosis of 3.4 mmol/L present on admission, possible inflammatory: Patient was empirically started on IV Zosyn. CT abdomen pelvis, chest x-ray and UA benign. 4. Mild Hypercalcemia of 11.1 mg/dL present on admission Give NS IVF and check intact-PTH. PTH normal. 5. History of TIA (2019) and history of CVA; of multiple vascular territories in the Left cerebrum and cerebellum (2011) possible vascular dementia 6. Depression with anxiety; on trazodone and duloxetine - Noted. Reinitiate these agents once patient has medically stabilized and can tolerate oral intake. 7. Essential hypertension; on losartan, carvedilol, spironolactone and furosemide - Hold scheduled antihypertensives for now and give IV Hydralazine prn for systolic blood pressure > 160 mmHg. 8. Hyperlipidemia; on atorvastatin - Restart statin once her condition improves. 9. Overweight; with BMI of 29.7 this admission - Weight loss will be recommended. 10. CAD; s/p [place] (2011) with stent to LCX (2010), PAF not on anticoagulation, chronic systolic HFrEF, LVEF 40%. On baby aspirin-resume once patient mental function improved troponin 51 and 83. 05/14: Please see above regarding dosages of carvedilol, Lasix and losartan 11. Chronic dysphagia status post EGD and dilatation, GERD on omeprazole 12. Primary osteoarthritis ; with history of Right THR, chronic back pain and bilateral knee pain causing her to use a walker to ambulate at baseline -PT and OT 13. DVT prophylaxis - Heparin 5,000 U sq. BID plus SCD's. Discharge medication reconciliation done. Discharge follow-up instructions completed. Discharge process discussed with the patient and all questions were answered to patient's satisfaction. Follow with PCP in 1 to 2 weeks Total time spent, exact 35 minutes on discharge meds reconciliation, examination, coordination of care with nurses and ancillary staff, review of imaging and blood test and discussion with the patient on follow-up instructions. Medications at Discharge Home Medications aspirin 81 mg tablet,delayed release 81 mg PO DAILY heart health 12/26/17 walker #1 ea 02/22/20 pen needle, diabetic 31 gauge x 5/16 (BD Ultra-Fine Short Pen Needle) #100 ea 02/25/20 pen needle, diabetic 32 gauge x 5/32 (Easy Comfort Pen [place]) #200 ea 03/06/22 Lift Chair #1 ea 01/31/23 flash glucose scanning reader (FreeStyle Monie 2 [place]) #1 ea 03/13/23 flash glucose sensor (FreeStyle Monie 2 Sensor kit) #1 ea 07/15/23 omeprazole 40 mg capsule,delayed release 40 mg PO DAILY reflux #90 caps 01/19/24 atorvastatin 40 mg tablet See Rx Instructions .Route .COMPLEX cholesterol #30 tabs 02/02/24 donepezil 10 mg tablet See Rx Instructions .Route .COMPLEX memory #30 tabs 02/02/24 glipizide 10 mg tablet, extended release 24 hr 10 mg PO BID for diabetes mellitus #60 TABLETS 02/05/24 trazodone 50 mg tablet 50 mg PO QHS sleep #30 TABLETS 03/01/24 duloxetine 30 mg capsule,delayed release 30 mg PO DAILY mental health #90 ea 03/08/24 spironolactone 25 mg tablet 25 mg PO DAILY #90 tabs 04/21/24 Novolog FlexPen U-100 Insulin 100 unit/mL (3 mL) subcutaneous (insulin aspart U-100) 15 unit (0.15 mL) subcut TID diabetes 3 months #54 mL 05/14/24 carvedilol 6.25 mg tablet 6.25 mg PO BIDCM #0 tabs 05/14/24 furosemide 40 mg tablet 20 mg (1/2 x 40 mg) PO DAILY #90 tabs 05/14/24 gabapentin 100 mg capsule 100 mg PO QHS #0 caps 05/14/24 insulin degludec 100 unit/mL (3 mL) subcutaneous pen (Tresiba FlexTouch U-100 insulin) 60 unit (0.6 mL) subcut DAILY diabetes 3 months #45 mL 05/14/24 insulin lispro 100 unit/mL subcutaneous pen (Humalog KwikPen (U-100) Insulin) See Protocol subcut ACHS #0 mL 05/14/24 losartan 50 mg tablet 25 mg (1/2 x 50 mg) PO DAILY blood pressure #90 TABLETS 05/14/24 psyllium husk (aspartame) 3 gram oral powder packet (Daily Fiber (psyllium-aspartame)) 1 packet PO TID #0 ea 05/14/24 sennosides 8.6 mg-docusate sodium 50 mg tablet (Stimulant Laxative Plus) 2 tab PO BID #0 tabs 05/14/24 Physical Exam Narrative Seen and examined. Patient is doing well. Blood pressure fluctuates. Varies between 110s to 140s. Patient is awake and alert and talking coherent. No acute issues. Physical exam General: Alert, awake, oriented x 3. Speech coherent HEENT: Atraumatic, PERRLA, EOMI, Normocephalic Oral: Oral mucosa dry. No Gingival or Mucosal Lesions/ Ulcerations Neck: Supple, No JVD, Negative Carotid Bruits Chest wall/Lungs: Air entry diminished in bilateral lung bases. No crepitation/rhonchi Cardiovascular: A-fib , rate controlled, normal S1, Normal S2, No M/G/R Abdomen: Bowel Sounds Present, Soft, Non Tender, Non-Distended : No dysuria. No renal angle tenderness. No suprapubic tenderness. Extremities: Mild edema, Capillary Refill Less than 3 Seconds Skin: No rashes, No breakdown Musculoskeletal: No Tenderness to Palpation of Joints or Extremities Neurological: Cranial nerves II-XII grossly intact, DTR 2+/4. No acute focal neurological deficit. Psych/Mental Status:Flat affect Weight / BMI Weight Weight: 187 lb 2.759 oz Body Mass Index (BMI) 28.4 ABG / Lab / Microbiology Data 05/14/24 06:20 05/14/24 06:20 Laboratory: Laboratory Results - last 24 hr 05/13/24 16:13: POC Glucose 135 H 05/13/24 22:53: POC Glucose 125 H 05/14/24 06:20: WBC 7.6, RBC 3.96 L, Hgb 11.1 L, Hct 33.5 L, MCV 84.6, MCH 28.0, MCHC 33.1, RDW Std Deviation 41.8, RDW Coeff of Zakiya 13.6, Plt Count 161, MPV 10.9, Immature Gran % (Auto) 0.700, Neut % (Auto) 60.1, Lymph % (Auto) 29.1, King % (Auto) 9.0, Eos % (Auto) 0.8, Baso % (Auto) 0.3, Absolute Neuts (auto) 4.6, Absolute Lymphs (auto) 2.20, Nucleated RBC % 0, Sodium 135 L, Potassium 3.7, Chloride 104, Carbon Dioxide 27.0, Anion Gap 4 L, BUN 21 H, Creatinine 0.90, Estim Creat Clear Calc 67.33, Est GFR (MDRD) Af Amer 79, Est GFR (MDRD) Non-Af 65, BUN/Creatinine Ratio 23.2 H, Glucose 280 H, Calcium 8.6 05/14/24 11:50: POC Glucose 243 H Microbiology: Microbiology 05/13/24 08:00 Urine, Clean Catch Urine Culture - Preliminary Culture exhibits no growth. 05/10/24 22:57 Blood Culture (Wb) - Anticubital Right Blood Culture - Preliminary No growth in 48 hours. 05/10/24 22:32 Blood Culture (Wb) - Anticubital Right Blood Culture - Preliminary No growth in 48 hours. 05/11/24 03:43 Mucosa - Nasopharyngeal Respiratory Panel (PCR) - Final D/C Instructions DC O2, CPAP, BIPAP Needs Additional Home O2 Discharge instructions: No DC home with Oxygen: No Meaningful Use Info Meaningful Use Meaningful Use Diagnoses (Choose all that apply): None applicable Ischemic Stroke Statin Dosing Therapy Reference: STATIN DOSE THERAPY REFERENCE: * Patients > 75 years receive moderate or high dose statin therapy. * Patients 75 years or YOUNGER should receive HIGH intensity statin dose unless contraindicated. You will be required to document reason for non-treatment if statin daily dose does not meet guidelines. HIGH DOSE STATIN THERAPY DAILY Atorvastatin > than or = to 40 mg Rosuvastatin > than or = to 20 mg Amlodipine + Atorvastatin > than or = to 2.5/40 mg Ezetimibe + Simvastatin 10/80 mg Simvastatin 80mg Discharge Plan Admission Admit Date/Time: 05/10/24 22:12 Attending Provider: Jareth Holley Primary Care Provider: Obed Scott Consulting Providers: Ramana Lau Instructions Additional Instructions / Restrictions: Hold stool softener for more than 1 BM per day. Discharge Orders/Prescriptions Prescriptions: New carvedilol 6.25 mg Tablet 6.25 mg PO BIDCM Qty: 0 0RF gabapentin 100 mg Capsule 100 mg PO QHS Qty: 0 0RF insulin lispro [Humalog KwikPen Insulin] 100 unit/mL Insulin Pen See Protocol subcut ACHS Qty: 0 0RF Protocol: 5. Sliding Scale Insulin High Dosing Condition: 150-209 mg/dl = 3 units Condition: 210-259 mg/dl = 6 units Condition: 260-324 mg/dl = 9 units Condition: 325-374 mg/dl = 12 units Condition: 375-409 mg/dl = 14 units Condition: 410-449 mg/dl = 16 units Condition: Greater than 449 call physician Protocol Text: Suggested for: - Patients on Total Daily Insulin Dose of 81-120 units - Very insulin resistant patients HIGH DOSING ALGORITHM sennosides-docusate sodium [Stimulant Laxative Plus] 8.6-50 mg Tablet 2 tab PO BID Qty: 0 0RF Daily Fiber (psyllium-aspart) 3 gram Powder In Packet 1 packet PO TID Qty: 0 0RF Continued spironolactone 25 mg tablet 25 mg PO DAILY Qty: 90 3RF Rx Instructions: Hold for serum potassium more than 5.0 aspirin 81 MG tablet,delayed release (DR/EC) 81 mg PO DAILY (DME) walker Misc See Rx Instructions .ROUTE .MEDSUPPLY Qty: 1 0RF Rx Instructions: As directed (DME) pen needle, diabetic [BD Ultra-Fine Short Pen Needle] 31 gauge x 5/16 needle See Rx Instructions .ROUTE .MEDSUPPLY Qty: 100 5RF Rx Instructions: bid (DME) pen needle, diabetic [Easy Comfort Pen [place]] 32 gauge x 5/32 needle See Rx Instructions .ROUTE .MEDSUPPLY Qty: 200 3RF Rx Instructions: As directed (DME) Lift Chair See Rx Instructions .Route .MEDSUPPLY Qty: 1 0RF Rx Instructions: As directed ([facility]) FreeStyle Monie 2 [place] Misc See Rx Instructions .Route Qty: 1 5RF Rx Instructions: As directed ([facility]) FreeStyle Monie 2 Sensor Kit See Rx Instructions .Route Qty: 1 1RF Rx Instructions: As directed omeprazole 40 mg capsule,delayed release(DR/EC) 40 mg PO DAILY Qty: 90 0RF atorvastatin 40 mg tablet See Rx Instructions .ROUTE .COMPLEX Qty: 30 3RF Dose Instruction: TAKE 1 TABLET BY MOUTH AT BEDTIME FOR CHOLESTEROL Rx Instructions: TAKE 1 TABLET BY MOUTH AT BEDTIME FOR CHOLESTEROL donepezil 10 mg tablet See Rx Instructions .ROUTE .COMPLEX Qty: 30 3RF Dose Instruction: TAKE 1 TABLET BY MOUTH ONCE DAILY AT BEDTIME Rx Instructions: TAKE 1 TABLET BY MOUTH ONCE DAILY AT BEDTIME glipizide 10 mg tablet extended release 24hr 10 mg PO BID Qty: 60 0RF trazodone 50 mg tablet 50 mg PO QHS Qty: 30 0RF duloxetine 30 mg capsule,delayed release(DR/EC) 30 mg PO DAILY Qty: 90 0RF Changed furosemide 40 mg tablet 20 mg PO DAILY Qty: 90 3RF Rx Instructions: Take extra 20 mg dose at 5 PM for increased leg swelling or weight gain 5 pounds in 1 week. losartan 50 mg tablet 25 mg PO DAILY Qty: 90 0RF Rx Instructions: Hold for SBP less than 120 mmHg insulin aspart U-100 [Novolog FlexPen U-100 Insulin] 100 unit/mL (3 mL) insulin pen 15 unit subcut TID 90 Days Qty: 54 1RF insulin degludec [Tresiba FlexTouch U-100] 100 unit/mL (3 mL) insulin pen 60 unit subcut DAILY 90 Days Qty: 45 1RF Discontinued carvedilol 12.5 mg tablet 12.5 mg PO BID Qty: 180 3RF Rx Instructions: Hold for heart less than 50 or systolic blood pressure less than 100 mmHg. gabapentin 300 mg capsule 300 mg PO QHS Qty: 90 0RF Referrals / Follow Up: Obed Scott MD [Primary Care Provider] - Within 2 Weeks Disposition Disposition (needs filled in before D/C Order can be placed): Senior Living Facility Charges/Coding Visit Charges Inpatient E&M: 28924 Disch Hosp >30min
[2024-05-14 15:16] VITALS: BP 102/74; PULSE 70; RESP 18; TEMP 37.1; O2SAT 97
== END 2024-05-14 15:17 | disposition skilled nursing facility (03) | DRG 637 ==
LOC: ED 22:20 → ICU 22:50 → PCU 05-12 12:36
PROVIDERS: Admitting Provider Internal Medicine; Emergency Provider Emergency Medicine; PCP Internal Medicine; Referring Provider Internal Medicine; Visit Provider Internal Medicine
DX: E11.00 Type 2 diabetes mellitus with hyperosmolarity without nonketotic hyperglycemic-hyperosmolar coma (NKHHC) (principal); G93.41 Metabolic encephalopathy; E87.21 Acute metabolic acidosis; N17.9 Acute kidney failure, unspecified; I50.22 Chronic systolic (congestive) heart failure; D72.829 Elevated white blood cell count, unspecified; E11.40 Type 2 diabetes mellitus with diabetic neuropathy, unspecified; I11.0 Hypertensive heart disease with heart failure; I48.0 Paroxysmal atrial fibrillation; E86.1 Hypovolemia; F03.90 Unspecified dementia, unspecified severity, without behavioral disturbance, psychotic disturbance, mood disturbance, and anxiety; I69.30 Unspecified sequelae of cerebral infarction; K21.9 Gastro-esophageal reflux disease without esophagitis; I25.10 Atherosclerotic heart disease of native coronary artery without angina pectoris; Z79.4 Long term (current) use of insulin; E83.52 Hypercalcemia; F41.8 Other specified anxiety disorders; E78.00 Pure hypercholesterolemia, unspecified; M19.91 Primary osteoarthritis, unspecified site; I25.2 Old myocardial infarction; K59.00 Constipation, unspecified; Z95.5 Presence of coronary angioplasty implant and graft; Z87.891 Personal history of nicotine dependence; Z90.710 Acquired absence of both cervix and uterus; Z79.84 Long term (current) use of oral hypoglycemic drugs; Z79.82 Long term (current) use of aspirin; Z79.899 Other long term (current) drug therapy; E66.3 Overweight; Z68.29 Body mass index [BMI] 29.0-29.9, adult; Z90.49 Acquired absence of other specified parts of digestive tract; Z96.649 Presence of unspecified artificial hip joint; T50.1X5A Adverse effect of loop [high-ceiling] diuretics, initial encounter; T50.0X5A Adverse effect of mineralocorticoids and their antagonists, initial encounter; T46.5X5A Adverse effect of other antihypertensive drugs, initial encounter; R10.10 Upper abdominal pain, unspecified
CPT/HCPCS: 36415; 70450; 71045; 74176; 80048; 80053; 80307; 81001; 82009; 82607; 82746; 82947; 82962; 83036; 83605; 83970; 84443; 84484; 85025; 87040; 87086; 87088; 87633; 93005; 97162; 97166; 97530; 97535; 99285; J7030; A4216; J2405

== ENCOUNTER → 2024-06-28 | Outpatient (CLI) | payer MEDICARE, SELFPAY ==
--- NOTE | 2024-06-28 13:40 | ECHOD_ITS ---
Version 2 Reason For Study: CHF Procedure This was a 2D Doppler, Color Flow transthoracic echocardiogram. Exam performed in department. Left Ventricle Moderately dilated left ventricle. The left ventricular ejection fraction is 25 %. Moderately severe segmental systolic dysfunction (see wall motion). Posterior-Basal: Akinetic. Mid-Posterior: Akinetic. The rest of the wall segments are hypokinetic. Right Ventricle Normal RV size. Normal systolic function. Atria Normal left atrium. Normal right atrium. Mitral Valve There is mild to moderate mitral annular calcification. Mild (1+) eccentric mitral valve insufficiency. Tricuspid Valve Normal tricuspid valve. Aortic Valve Trisinus/trileaflet aortic valve. Mild focal aortic valve calcification. Pulmonic Valve Normal pulmonic valve. Great Vessels Normal aortic root. The pulmonary artery is normal size. Normal inferior vena cava. Pericardium/Pleural No pericardial effusion. MMode/2D Measurements & Calculations LVIDd: 6.5 cm IVSd: 1.2 cm Ao root diam: 3.3 cm LVIDs: 5.5 cm LVPWd: 0.61 cm RVDd: 4.1 cm FS: 14.6 % LAV(MOD-bp): 65.0 ml LVAd ap4: 38.0 cm2 SV(MOD-sp4): 36.8 ml LAV(MOD-bp) Indexed: 32.0 ml/m2 LVLd ap4: 8.5 cm SI(MOD-sp4): 18.1 ml/m2 LAV(MOD-sp2): 68.5 ml EDV(MOD-sp4): 144.1 ml LAV(MOD-sp4): 56.4 ml EDV(sp4-el): 144.6 ml LVAs ap4: 30.4 cm2 LVLs ap4: 7.2 cm ESV(MOD-sp4): 107.4 ml ESV(sp4-el): 108.4 ml EF(MOD-sp4): 25.5 % EF(sp4-el): 25.0 % SV(sp4-el): 36.2 ml LA A4 area: 19.8 cm2 LA dimension(2D): 5.4 cm RA A4 area: 12.3 cm2 TAPSE: 1.7 cm Time Measurements MV dec time: 0.23 sec Doppler Measurements & Calculations MV E max colin: 72.9 cm/sec Lat Peak E' Colin: 5.1 cm/sec Med Peak E' Colin: 5.9 cm/sec MV A max colin: 95.8 cm/sec E/E' lat: 14.3 E/E' med: 12.4 MV E/A: 0.76 MV V2 max: 101.0 cm/sec MV P1/2t max colin: 90.8 cm/sec Ao V2 max: 138.1 cm/sec MV max P.1 mmHg MV P1/2t: 66.3 msec Ao max P.6 mmHg MV V2 mean: 60.6 cm/sec Ao V2 mean: 89.3 cm/sec MV mean P.7 mmHg MV dec slope: 400.9 cm/sec2 Ao mean P.7 mmHg MV V2 VTI: 17.3 cm MVA(P1/2t): 3.3 cm2 Ao V2 VTI: 23.8 cm AV (velocity ratio): 0.66 LV V1 max: 92.9 cm/sec PA V2 max: 87.3 cm/sec LV V1 max P.5 mmHg PA V2 mean: 62.3 cm/sec LV V1 mean P.9 mmHg LV V1 mean: 64.3 cm/sec LV V1 VTI: 15.8 cm ECHO/Echo Complete Interpretation Summary The left ventricular ejection fraction is 25 %. Moderately dilated left ventricle. Moderately severe segmental systolic dysfunction (see wall motion). There is mild to moderate mitral annular calcification. Mild (1+) eccentric mitral valve insufficiency. Ordering Physician: Melanie Baig Referring Physician: Melanie Baig Performed By: Twin Lang RCS
== END | disposition home or self-care (01) ==
LOC: CVS 13:36
PROVIDERS: PCP Internal Medicine; Referring Provider Physician Assistant Medical; Visit Provider Physician Assistant Medical
DX: I50.22 Chronic systolic (congestive) heart failure (principal)
CPT/HCPCS: 93306